=== PATIENT | male | born 1935 | race Caucasian/White ===

== ENCOUNTER 2021-04-13 14:11 | Emergency (ER) | payer OTHER, SELFPAY ==
--- NOTE | 2021-04-13 14:42 | ED.FALL ---
HPI - Fall General Chief Complaint: Extremity Injury, Upper Stated Complaint: infection in L arm Time Seen by Provider: 04/13/21 14:42 Source: patient Mode of arrival: ambulatory Limitations: no limitations History of Present Illness HPI Narrative: 85-year-old man comes in today complaining of a wound on his posterior left upper arm that occurred the morning after Thanksgiving. Patient states that he was in his home, looking up and when he looked down he felt dizzy and passed out. He also had an abrasion on his right elbow but that has since healed. He came in today because his is concerned the wound is infected. He has had no drainage, bleeding, spreading redness, fever or increased pain. He states he is not concerned about his syncopal episode. Onset (ago): day(s) (6) Fall from: standing Fall witnessed: no Place fall occurred: home Length of LOC: second(s) Prolonged down time: no Symptoms prior to fall: lightheadedness and dizziness Location of injury - extremities: Right: arm Severity: mild Associated symptoms (after fall): denies Related Data Home Medications Medication Instructions Recorded Confirmed metoprolol succinate 25 mg PO HS 04/13/21 04/13/21 Allergies Allergy/AdvReac Type Severity Reaction Status Date / Time No Known Allergies Allergy Verified 04/13/21 14:54 Review of Systems Review of Systems: All systems reviewed & are unremarkable except as noted in HPI and below Constitutional: Constitutional: Denies chills and Denies fever(s) ENT: Denies nasal congestion and Denies sore throat Cardiovascular: Cardiovascular: Denies chest pain and Denies radiating jaw, neck or arm pain Respiratory: Respiratory: Denies cough and Denies dyspnea Gastrointestinal: Gastrointestinal: Denies abdominal pain, Denies nausea and Denies vomiting Neurologic: Reports as per HPI, Denies confusion, Denies vertigo, Denies dizziness, Reports syncope, Denies numbness and Denies weakness Allergic/Immunologic: Allergic/Immunologic: Denies lip swelling and Denies throat swelling PMFSH Past Medical History Medical History (Updated 04/13/21 @ 15:23 by Kendrick Pena MD) Bladder cancer Colon cancer Hypertension Surgical History Surgical History (Updated 04/13/21 @ 14:43 by Kendrick Pena MD) History of knee replacement Social History Social History (Updated 04/13/21 @ 15:20 by Kendrick Pena MD) Smoking status: Never smoker Substance use: never Living arrangements: with family Exam Const: General: healthy appearing, no acute distress and alert Orientation/consciousness: patient oriented x3 Limitations: no limitations Resp: Effort & Inspection: normal respiratory effort and no retractions Auscultation: clear to auscultation bilaterally, no rales, no rhonchi and no wheezes Cardio: Rate: regular rate Rhythm: regular rhythm Heart sounds: no murmurs Skin: General skin exam: normal color, no jaundice and no pallor Rashes: no rashes Other: Approximately 8 x 10 cm area of healing wound on the back of the left arm with pink granulation and some dry scale at the edges of the flap. There is some bruising above and below the wound. No warmth, tenderness, erythema or drainage. Neuro: General: patient oriented x3, moves all extremities, no focal motor deficits and CN's II-XI intact bilaterally Speech: normal speech Gait exam (Neuro): Normal gait present Discharge Plan Discharge Clinical Impression: Arm wound Qualifiers: Encounter type: initial encounter Laterality: left Qualified Code(s): S41.102A - Unspecified open wound of left upper arm, initial encounter Patient Disposition: Home, Self-Care Condition: Stable Instructions: Antibiotic Form Additional Instructions: Keep the wound clean and dry. If you develop redness, drainage, increasing pain or new concerning symptoms, be seen immediately. Prescriptions: New Triple Antibiotic 3.5mg-400 unit- 5,000 unit/gram ointm
[2021-04-13 14:46] VITALS: BP 148/69; PULSE 72; RESP 20; TEMP 36.5; O2SAT 96
[2021-04-13 15:58] VITALS: PULSE 80; RESP 20; O2SAT 98
--- NOTE | 2021-04-14 14:16 | PCCCNOTE ---
[facility] notification requred no [facility]N in the system, unable to find on card. Called to patient, patient was agreeable to find the last 4 digits ([id number]) Unable to complete online form w/o full number. Called to [facility] notification [facility] tree Kathleen who accepted and filed report provided # of [id number]. Added to authorizations per workflow.
== END 2021-04-13 16:00 | disposition home or self-care (01) ==
PROVIDERS: Emergency Provider Emergency Medicine
DX: S41.102A Unspecified open wound of left upper arm, initial encounter (principal); W19.XXXA Unspecified fall, initial encounter; I10 Essential (primary) hypertension; Z85.038 Personal history of other malignant neoplasm of large intestine; Z85.51 Personal history of malignant neoplasm of bladder
CPT/HCPCS: 99283

== ENCOUNTER 2022-09-02 13:40 | Emergency (ER) | payer MEDICARE, OTHER, SELFPAY ==
--- NOTE | ~2022-09-02 | XR_ITS ---
EXAMINATION: XR chest 2V DATE: 09/02/2022 14:16 INDICATION: Cough TECHNIQUE: Frontal and lateral views of the chest are obtained COMPARISON: None available FINDINGS: The lungs are free of acute opacities. No pleural effusion or pneumothorax. The cardiomedia stinal silhouette is normal. Calcified pulmonary nodules and calcified right hilar lymph nodes are co nsistent with old granulomatous disease. The visualized bones and soft tissues are unremarkable. IMPRESSION: 1. No acute cardiopulmonary abnormality. Reviewed, dictated and finalized at location A.
--- NOTE | 2022-09-02 13:41 | ED.URI ---
HPI - URI/Sore Throat General Chief Complaint: Upper Respiratory Infection Stated Complaint: COUGH Time Seen by Provider: 09/02/22 13:41 Source: patient Mode of arrival: ambulatory Limitations: no limitations History of Present Illness HPI Narrative: Mr Castillo is an 87-year-old male patient presenting to the clinic today with complaints of productive cough x3 weeks. States that his sputum is dark. He reports he was unable to lay flat last night due to coughing and had to sleep in a recliner. He has mild shortness of breath at times. No fever or chills. Nonsmoker. MD elicited complaint: cough and other Related Data Allergies Allergy/AdvReac Type Severity Reaction Status Date / Time No Known Allergies Allergy Verified 09/02/22 14:01 Review of Systems Review of Systems: Pertinent positives per HPI. Patient denies any fever, chills, rash, headache, visual changes, dizziness, chest pain, palpitations, nausea, vomiting, diarrhea, constipation, abdominal pain, or any urinary issues. PMFSH Past Medical History Medical History Bladder cancer Colon cancer Hypertension Surgical History Surgical History History of knee replacement Social History Social History Smoking status: Never smoker Substance use: never Living arrangements: with family Comments At the time of my signature, I reviewed and agree with the nursing past medical, surgical, social, and family history. There is no relevant family history pertinent to the patient complaint. Exam Narrative: General: Well-developed, well nourished, in no apparent distress Head: Normocephalic, atraumatic Eyes: Pupils equally round and reactive to light bilaterally, EOM intact, sclera and conjunctive clear, no discharge, lids normal Ears: TMs intact and clear, ear canals clear, no drainage, grossly hearing normal. Nose: Nares patent, no discharge, no inflammation, no sinus tenderness. No JVD Mouth: Oral pharynx without lesions or masses, good dentition, MMM. Neck: Supple, trachea midline, no enlargement of anterior or posterior cervical nodes, no thyroid masses or goiter palpable. Cardio: Regular rate and rhythm, s1 and s2 normal, no murmur appreciated. Resp: Lung sounds coarse in the bases, no rhonchi, rales, wheezing or rubs Musculoskeletal: No deformity, non-tender to palpation, grossly normal range of motion, muscle strength strong and equal, peripheral pulse strong, 1+ pitting edema, no cyanosis, normal gait and station Course Course Emergency Course: Portions of this record may have been created with voice recognition software. Level of Care: Express Care Visit Vital Signs Vital signs: Vital Signs Temperature 36.6 C 09/02/22 14:06 Pulse Rate 69 09/02/22 14:06 Respiratory Rate 16 09/02/22 14:06 Blood Pressure 137/69 09/02/22 14:06 Pulse Oximetry 98 09/02/22 14:06 Temperature 36.6 C 09/02/22 14:06 Pulse Rate 69 09/02/22 14:06 Respiratory Rate 16 09/02/22 14:06 Blood Pressure 137/69 09/02/22 14:06 Pulse Oximetry 98 09/02/22 14:06 Vital signs reviewed MDM - URI/Sore Throat MDM Narrative Medical decision making narrative: At the time of visit patient is resting comfortably on exam table. SpO2 is 98% patient is not in any respiratory distress. Chest x-ray was performed was negative for any sign of pneumonia. I suspect patient has bronchitis. Will send in prescription for azithromycin, albuterol, and prednisone. Supportive measures were discussed with the patient he voiced understanding discharge instructions and agrees to treatment plan. Differential Diagnosis Differential diagnosis: Likely upper respiratory infection, otitis media, sinusitis, viral infection, bronchitis, influenza, pharyngitis and other (COVID) Imaging Data
[2022-09-02 14:06] VITALS: BP 137/69; PULSE 69; RESP 16; TEMP 36.6; O2SAT 98
== END 2022-09-02 14:49 | disposition home or self-care (01) ==
PROVIDERS: Emergency Provider Nurse Practitioner Family
DX: J40 Bronchitis, not specified as acute or chronic (principal); I10 Essential (primary) hypertension; Z85.038 Personal history of other malignant neoplasm of large intestine; Z85.51 Personal history of malignant neoplasm of bladder
CPT/HCPCS: 71046; 99213; G0463

== ENCOUNTER 2023-11-12 18:20 | Emergency (ER) | payer MEDICARE, OTHER, SELFPAY ==
--- NOTE | ~2023-11-12 | XR_ITS ---
EXAMINATION: XR chest 2V Exam Date/Time: 11/12/2023 18:39 CDT HISTORY: chest pain and sob Comparison: 09/02/2022. RESULT: Lines, tubes, and devices: None. Lungs and pleura: No acute opacities. Chronic peripheral reticular opacities likely secondary to chr onic interstitial disease. Multiple calcified granulomas. Cardiomediastinal silhouette: Stable. Calcified lymph nodes. Other: No acute osseous or upper abdominal finding. IMPRESSION: No acute cardiopulmonary process. Reviewed, dictated and finalized at location K.
--- NOTE | 2023-11-12 18:23 | ECG_ITS ---
Test Date: 2023-11-12 18:27:04 Measurements Intervals [place] Rate: 69 P: 15 [place]: 183 QRS: -83 QRSD: 146 T: 51 QT: 440 QTc: 474 Interpretive Statements SINUS RHYTHM WITH SINUS ARRHYTHMIA RIGHT BUNDLE BRANCH BLOCK LEFT ANTERIOR FASCICULAR BLOCK ABNORMAL ECG No previous ECG available for comparison Electronically Signed On 11-12-2023 20:29:15 CDT by Austin Colon D.O.
[2023-11-12 18:30] VITALS: BP 144/66; PULSE 60; RESP 14; TEMP 36.5; O2SAT 97
[2023-11-12 18:46] LABS: Basophils Absolute Auto 0.1 K/mm3 (0.0-0.1); Basophils Percent Auto 0.6 % (0.2-1.2); Eosinophils Absolute Auto 0.3 K/mm3 (0-0.3); Eosinophils Percent Auto 2.8 % (0-4.4); Hematocrit 37.3 % (42.0-52.0); Hemoglobin 12.6 g/dL (14.0-18.0); Immature Granulocyte Absolute 0.04 K/mm3 (0.00-0.031); Immature Granulocyte Percent A 0.4 % (0-0.5); Lymphocytes Absolute Auto 2.63 K/mm3 (0.9-3.2); Lymphocytes Percent Auto 23.4 % (18.3-44.2); Mean Corpuscular HGB Conc 33.8 g/dl (32-36); Mean Corpuscular Volume 91.6 fl (80-100); Mean Platelet Volume 8.7 fl (7.4-10.4); Monocytes Absolute Auto 0.9 K/mm3 (0.1-0.6); Monocytes Percent Auto 8.1 % (2.6-8.5); Neutrophils Absolute Auto 7.3 K/mm3 (1.3-6.7); Neutrophils Percent Auto 64.7 % (45.5-73.1); Platelet Count Result 396 k/mm3 (150-375); Red Blood Count 4.07 M/mm3 (4.6-6.20); Red Cell Distribution Width 13.3 % (11.5-14.5); White Blood Count 11.2 K/mm3 (4.5-10.0)
[2023-11-12 18:55] LABS: Alanine Aminotransferase 43 U/L (6-50); Albumin Level 4.1 g/dL (3.5-5.1); Alkaline Phosphatase 95 U/L (38-126); Anion Gap 5 mmol/L (4-12); Aspartate Amino Transferase 34 U/L (17-59); Bilirubin,Total 0.4 mg/dL (0.2-1.3); Blood Urea Nitrogen 12 mg/dL (9-20); Calcium 8.7 mg/dL (8.4-10.2); Carbon Dioxide 29 mmol/L (22-30); Chloride 99 mmol/L (98-107); Estimated CRCL calculation 72 ml/min; Estimated Glomerular Filt Rate > 60; Glucose 170 mg/dL (65-110); Lipase 154 U/L (23-300); Potassium 3.8 mmol/L (3.4-5.0); Sodium 133 mmol/L (137-145)
[2023-11-12 18:59] LABS: Partial Thromboplastin Time 33.1 Seconds (22.3-36.8)
[2023-11-12 19:07] LABS: Troponin I < 0.012 ng/mL (0.000-0.034)
[2023-11-12 20:49] VITALS: PULSE 67
--- NOTE | 2023-11-12 20:53 | ED.CHESTPAIN ---
HPI - Chest Pain General Chief Complaint: Chest Pain Stated Complaint: fluid on the lungs Time Seen by Provider: 11/12/23 20:23 History of Present Illness HPI narrative: Patient is an 88-year-old male with history of vertigo, macular degeneration, hypertension here with multiple symptoms including intermittent chest pain, shortness of breath, dizziness, worsening vision. Patient notes that his vision has been progressively worsening over the last 4 years, seems to be picking up more rapidly over the last several weeks, [facility] and gets injections every 7 weeks. He additionally is complaining of some dizziness. These episodes seem to happen when he goes from a lying to standing position. Not currently present now. He has seen a doctor through the [facility] for this as well, this has been present for the last 6 months, he intermittently takes meclizine which sometimes helps with the symptoms and sometimes does not. Finally he is complaining of some chest pain, Shortness of breath and fatigue. This has been present for the last several weeks, he did go to an urgent care approximately week and half ago where they told him they heard with fluid on his lungs and heart and recommended he come into the ER for further evaluation. He did not come to the ER at that time, called his primary care doctor through the [facility], he is scheduled for a stress test on 11/23/2023. Given this concern for fluid on his lungs and heart his doctor at that time recommended he come into the emergency department for further evaluation and diagnostic testing. Patient denies any chest pain or shortness of breath at this time and states that it is not something that bothers him. He notes he has no interest in being hospitalized. Related Data Allergies Allergy/AdvReac Type Severity Reaction Status Date / Time No Known Allergies Allergy Verified 09/02/22 14:01 Review of Systems Review of Systems: All systems reviewed & are unremarkable except as noted in HPI and below PMFSH Past Medical History Medical History Bladder cancer Colon cancer Hypertension Surgical History Surgical History History of knee replacement Social History Social History Smoking status: Never smoker Substance use: never Living arrangements: with family Exam Narrative: GENERAL: Well-appearing, well-nourished, and in no acute distress. HEAD: Normocephalic, atraumatic. EYES: PERRLA and EOMI. ENT: Nares clear. Mucous membranes moist. NECK: Supple. CHEST: Clear to auscultation. No respiratory distress. HEART: Regular rate and rhythm. Normal peripheral pulses. ABDOMEN: Soft, nontender, nondistended. EXTREMITIES: Normal range of motion. Trace bilateral lower extremity edema. No calf tenderness. SKIN: Warm, dry, no rash. NEURO: No focal deficits. Alert and oriented x3. PSYCH: Normal mood and affect. Course Course Emergency Course: Chart review performed, patient is an 88-year-old male here from home with chest pain that radiates down his left arm. He was reportedly seen at urgent care for chest pain and they reportedly heard fluid on patient's lungs and [facility] PCP instructed him to come in here. Triage vitals grossly normal. Patient seen evaluated, nontoxic appearing. He has had 2 normal troponins here in the ER and a normal chest x-ray. Reviewed all results with patient and family. He currently denies any symptoms. Many of the things he is complaining about today are actually longstanding problems for which he follows with [facility]. Given his reassuring workup here in the department and no active symptoms at all I did offer possibility for cardiac observation versus discharge home. Patient states he has no i
[2023-11-12 20:58] VITALS: O2SAT 97
[2023-11-12 21:35] LABS: NT Pro B Type Natriuretic Pept 252 pg/mL (19.9-100)
[2023-11-12 22:05] LABS: Troponin I < 0.012 ng/mL (0.000-0.034)
== END 2023-11-12 22:31 | disposition home or self-care (01) ==
PROVIDERS: Emergency Medicine; Emergency Provider Student in an Organized Health Care Education/Training Program
DX: R07.89 Other chest pain (principal); R42 Dizziness and giddiness; I10 Essential (primary) hypertension; Z85.038 Personal history of other malignant neoplasm of large intestine; Z85.51 Personal history of malignant neoplasm of bladder
CPT/HCPCS: 36415; 71046; 80053; 83690; 83880; 84484; 85025; 85610; 85730; 93005; 99284

== ENCOUNTER 2024-05-10 10:33 | Emergency (ER) | payer MEDICARE, OTHER, SELFPAY ==
--- NOTE | ~2024-05-10 | XR_ITS ---
EXAMINATION: XR chest 2V DATE: 05/10/2024 11:06 INDICATION: Chest pain radiating down the left arm TECHNIQUE: PA and lateral views of the chest were obtained. COMPARISON: Chest radiograph dated 11/12/2023 FINDINGS: Stable appearance of coarse reticular opacities with peripheral and lower lung predominance consisten t with chronic interstitial lung disease. Also unchanged are a few small calcified nodules in the rig ht midlung zone consistent with old granulomatous disease. No pleural effusion or pneumothorax. The c ardiomediastinal silhouette is normal. IMPRESSION: 1. Stable appearance of peripheral and lower lung predominant chronic interstitial lung disease. Reviewed, dictated and finalized at location A. ICAL TRANSCRIBER IMPRESSION: 1. Stable appearance of peripheral and lower lung predominant chronic interstit ial lung disease.
--- NOTE | 2024-05-10 10:38 | ECG_ITS ---
Test Date: 2024-05-10 10:43:02 Measurements Intervals [place] Rate: 69 P: 99 ME: 179 QRS: -83 QRSD: 142 T: 36 QT: 431 QTc: 463 Interpretive Statements SINUS RHYTHM WITH OCCASIONAL SUPRAVENTRICULAR PREMATURE COMPLEXES RIGHT BUNDLE BRANCH BLOCK [120+ ms QRS DURATION, UPRIGHT V1, 40+ ms S IN I/aVL/V4/V5/V6] LEFT ANTERIOR FASCICULAR BLOCK [QRS AXIS <= -45, QR IN I, RS IN II] ABNORMAL ECG Electronically Signed On 05-10-2024 11:24:40 SATELLITE SPECIALIST by Jamie Guzman M.D.
[2024-05-10 10:42] VITALS: BP 152/86; PULSE 80; RESP 16; TEMP 36.8; O2SAT 99
[2024-05-10 10:58] LABS: Basophils Absolute Auto 0.1 K/mm3 (0.0-0.1); Basophils Percent Auto 0.6 % (0.2-1.2); Eosinophils Absolute Auto 0.3 K/mm3 (0-0.3); Eosinophils Percent Auto 3.4 % (0-4.4); Hematocrit 35.4 % (42.0-52.0); Hemoglobin 11.9 g/dL (14.0-18.0); Immature Granulocyte Absolute 0.04 K/mm3 (0.00-0.031); Immature Granulocyte Percent A 0.4 % (0-0.5); Lymphocytes Absolute Auto 1.75 K/mm3 (0.9-3.2); Lymphocytes Percent Auto 17.6 % (18.3-44.2); Mean Corpuscular HGB Conc 33.6 g/dl (32-36); Mean Corpuscular Hemoglobin 30.4 pg (26-34); Mean Corpuscular Volume 90.5 fl (80-100); Mean Platelet Volume 8.9 fl (7.4-10.4); Monocytes Absolute Auto 1.1 K/mm3 (0.1-0.6); Monocytes Percent Auto 11.4 % (2.6-8.5); Neutrophils Absolute Auto 6.6 K/mm3 (1.3-6.7); Neutrophils Percent Auto 66.6 % (45.5-73.1); Platelet Count Result 411 k/mm3 (150-375); Red Blood Count 3.91 M/mm3 (4.6-6.20); White Blood Count 9.9 K/mm3 (4.5-10.0)
[2024-05-10 11:09] LABS: Alanine Aminotransferase 17 U/L (6-50); Albumin Level 3.7 g/dL (3.5-5.1); Alkaline Phosphatase 91 U/L (38-126); Anion Gap 4 mmol/L (4-12); Aspartate Amino Transferase 22 U/L (17-59); Bilirubin,Total 0.5 mg/dL (0.2-1.3); Blood Urea Nitrogen 10 mg/dL (9-20); Calcium 8.7 mg/dL (8.4-10.2); Carbon Dioxide 26 mmol/L (22-30); Chloride 101 mmol/L (98-107); Estimated CRCL calculation 67 ml/min; Estimated Glomerular Filt Rate > 60; Glucose 248 mg/dL (65-110); Lipase 179 U/L (23-300); Potassium 4.4 mmol/L (3.4-5.0); Sodium 131 mmol/L (137-145)
[2024-05-10 11:10] LABS: INR 1.1; Prothrombin Time 14.5 Seconds (11.1-14.7)
[2024-05-10 11:11] LABS: Partial Thromboplastin Time 31.2 Seconds (22.3-36.8)
[2024-05-10 11:20] LABS: Troponin I < 0.012 ng/mL (0.000-0.034)
[2024-05-10 12:44] VITALS: BP 140/78; PULSE 66; RESP 13; TEMP 36.7; O2SAT 100
[2024-05-10 13:14] VITALS: PULSE 53; O2SAT 99
--- NOTE | 2024-05-10 13:23 | ECG_ITS ---
Test Date: 2024-05-10 13:28:43 Measurements Intervals [place] Rate: 50 P: 77 NM: 191 QRS: -51 QRSD: 146 T: 40 QT: 475 QTc: 436 Interpretive Statements SINUS BRADYCARDIA RIGHT BUNDLE BRANCH BLOCK [120+ ms QRS DURATION, UPRIGHT V1, 40+ ms S IN I/aVL/V4/V5/V6] LEFT ANTERIOR FASCICULAR BLOCK [QRS AXIS <= -45, QR IN I, RS IN II] ABNORMAL ECG Electronically Signed On 05-11-2024 08:45:15 PUBLIC RELATIONS MANAGER by Jamie Guzman M.D.
[2024-05-10 13:58] LABS: Troponin I < 0.012 ng/mL (0.000-0.034)
[2024-05-10 14:12] LABS: Influenza A QL RT-PCR Negative (Negative); Influenza B QL RT-PCR Negative (Negative); RSV RNA, RT-PCR Negative (Negative); SARS-CoV-2 RNA PCR Negative (Negative)
--- NOTE | 2024-05-10 14:15 | ED.GENADULT ---
HPI - General Adult General Chief complaint: Chest Pain Stated complaint: chest pain Time Seen by Provider: 05/10/24 13:20 History of Present Illness HPI narrative: 88-year-old male presenting to the emergency department for evaluation for left-sided chest pain with associated cough and congestion. Patient was diagnosed with bronchitis approximately 1 week ago, he has had symptoms for approximately 2 weeks. Patient was started on Tessalon Perles, albuterol inhaler and prednisone. Family states that the patient's cough has continue to persist. Two days ago patient began complaining having left-sided chest pain that radiates down the left arm. Patient has no prior cardiac history. Patient denies any radiation of the pain into his neck or back. Patient is resting calmly at time of evaluation. Related Data Allergies Allergy/AdvReac Type Severity Reaction Status Date / Time No Known Allergies Allergy Verified 09/02/22 14:01 Review of Systems Review of Systems: All systems reviewed & are unremarkable except as noted in HPI and below PMFSH Past Medical History Medical History Bladder cancer Colon cancer Hypertension Surgical History Surgical History History of knee replacement Social History Social History Smoking status: Never smoker Substance use: never Living arrangements: with family Exam Narrative: APPEARANCE: Well appearing, no pain, no distress, well-nourished. HEAD: normocephalic, atraumatic. EYES: PERRLA/EOMI, conjunctivae clear. NOSE: Normal no drainage EARS:TMS clear with good light reflex. THROAT: Pharynx clear, no exudate. NECK: Supple. No adenopathy, no masses. RESPIRATORY: Airway patent, respirations nonlabored. Clear to auscultation bilaterally, no rales, rhonchi, wheezing. CARDIOVASCULAR: Regular rate and rhythm without murmurs rubs or gallops. ABDOMINAL: Soft, nontender, nondistended, normal bowel sounds MUSCULOSKELETAL: Moves all extremities. Strength/ROM intact, No edema, No calf tenderness. NEURO: Alert. Cranial nerves II through XII intact. Good gait. Good coordination SKIN: Warm, dry. Normal Color Course Course Emergency Course: APPEARANCE: Well appearing, no pain, no distress, well-nourished. HEAD: normocephalic, atraumatic. EYES: PERRLA/EOMI, conjunctivae clear. NOSE: Normal no drainage EARS:TMS clear with good light reflex. THROAT: Pharynx clear, no exudate. NECK: Supple. No adenopathy, no masses. RESPIRATORY: Airway patent, respirations nonlabored. Clear to auscultation bilaterally, no rales, rhonchi, wheezing. CARDIOVASCULAR: Regular rate and rhythm without murmurs rubs or gallops. ABDOMINAL: Soft, nontender, nondistended, normal bowel sounds MUSCULOSKELETAL: Moves all extremities. Strength/ROM intact, No edema, No calf tenderness. NEURO: Alert. Cranial nerves II through XII intact. Grossly intact SKIN: Warm, dry. Normal Color Vital Signs Vital signs: Vital Signs Temperature 98.2 F 05/10/24 10:42 Pulse Rate 80 05/10/24 10:42 Respiratory Rate 16 05/10/24 10:42 Blood Pressure 152/86 H 05/10/24 10:42 Pulse Oximetry 99 05/10/24 10:42 Temperature 98.0 F 05/10/24 12:44 Pulse Rate 58 L 05/10/24 14:37 Respiratory Rate 17 05/10/24 14:37 Blood Pressure 170/88 H 05/10/24 14:37 Pulse Oximetry 96 05/10/24 14:37 Oxygen Delivery Room Air 05/10/24 13:14 Medical Decision Making [facility] Narrative Medical decision making narrative: 88-year-old male present to the emergency department for evaluation for cough congestion and left-sided chest pain. Patient is afebrile with no leukocytosis and hemoglobin 11.9. Patient has no acute abnormalities on his CMP and patient had negative serial troponins. Patient was negative for influenza RSV and for COVID. Chest x-ray does show chronic interstitial lung disease. Serial EKG showed normal sinus rhythm with no evidence of acute STEMI. Patient's symptoms are more consistent with pleurisy with his underlying upper respiratory infection. Patient will be started on antibiotics for possible underlying pneumonia. Patient family are comfortable plan treatment. All questions concerns were addressed. Patient was also encouraged close follow-up with his primary care physician for additional outpatient cardiac testing. Differential Diagnosis Differential Diagnosis: ACS, COVID, RSV, influenza, pneumonia, pneumonitis, bronchitis Vital Signs Vital Signs: Vital Signs Temperature 98.2 F 05/10/24 10:42 Pulse Rate 80 05/10/24 10:42 Respiratory Rate 16 05/10/24 10:42 Blood Pressure 152/86 H 05/10/24 10:42 Pulse Oximetry 99 05/10/24 10:42 Temperature 98.0 F 05/10/24 12:44 Pulse Rate 58 L 05/10/24 14:37 Respiratory Rate 17 05/10/24 14:37 Blood Pressure 170/88 H 05/10/24 14:37 Pulse Oximetry 96 05/10/24 14:37 Oxygen Delivery Room Air 05/10/24 13:14 Lab Data Lab results reviewed: Yes I reviewed the patient's lab results. 05/10/24 10:49 05/10/24 10:49 Labs: Lab Results 05/10/24 05/10/24 Range/Units 10:49 13:29 WBC 9.9 (4.5-10.0) K/mm3 RBC 3.91 L (4.6-6.20) M/mm3 Hgb 11.9 L (14.0-18.0) g/dL Hct 35.4 L (42.0-52.0) % MCV 90.5 (80-100) fl MCH 30.4 (26-34) pg MCHC 33.6 (32-36) g/dl RDW 14.0 (11.5-14.5) % Plt Count 411 H (150-375) k/mm3 MPV 8.9 (7.4-10.4) fl Immature Gran % (Auto) 0.4 (0-0.5) % Neut % (Auto) 66.6 (45.5-73.1) % Lymph % (Auto) 17.6 L (18.3-44.2) % Bullock % (Auto) 11.4 H (2.6-8.5) % Eos % (Auto) 3.4 (0-4.4) % Baso % (Auto) 0.6 (0.2-1.2) % Lymph # (Auto) 1.75 (0.9-3.2) K/mm3 Bullock # (Auto) 1.1 H (0.1-0.6) K/mm3 Eos # (Auto) 0.3 (0-0.3) K/mm3 Baso # (Auto) 0.1 (0.0-0.1) K/mm3 Abs Immat Gran (auto) 0.04 H (0.00-0.031) K/mm3 Absolute Neuts (auto) 6.6 (1.3-6.7) K/mm3 Absolute Nucleated RBC 0.000 (0.0-0.012) K/mm3 Nucleated RBC % 0.0 (0.0-0.2) % PT 14.5 (11.1-14.7) Seconds INR 1.1 APTT 31.2 (22.3-36.8) Seconds Sodium 131 L (137-145) mmol/L Potassium 4.4 (3.4-5.0) mmol/L Chloride 101 (98-107) mmol/L Carbon Dioxide 26 (22-30) mmol/L Anion Gap 4 (4-12) mmol/L BUN 10 (9-20) mg/dL Creatinine 0.70 (0.7-1.3) mg/dL Estim Creat Clear Calc 67 ml/min Estimated GFR > 60 (59 - ) Glucose 248 H (65-110) mg/dL Calcium 8.7 (8.4-10.2) mg/dL Total Bilirubin 0.5 (0.2-1.3) mg/dL AST 22 (17-59) U/L ALT 17 (6-50) U/L Alkaline Phosphatase 91 (38-126) U/L Troponin I < 0.012 < 0.012 (0.000-0.034) ng/mL Total Protein 7.0 (6.3-8.2) g/dL Albumin 3.7 (3.5-5.1) g/dL Lipase 179 (23-300) U/L Influenza A (RT-PCR) Negative (Negative) Influenza B (RT-PCR) Negative (Negative) RSV (RT-PCR) Negative (Negative) SARS-CoV-2 RNA (RT-PCR) Negative (Negative) Imaging Data Radiologist's impression: Impressions Chest X-Ray 05/10/24 11:09 IMPRESSION: 1. Stable appearance of peripheral and lower lung predominant chronic interstitial lung disease. Discharge Plan Discharge Clinical Impression: Atypical chest pain, Pleurisy Patient Disposition: Home, Self-Care Condition: Stable Instructions: Antibiotic Form Additional Instructions: Antibiotic as directed until completed. Tylenol or ibuprofen for pain control. Have close follow-up with your primary care physician for additional outpatient cardiac testing. If you have any worsening symptoms then please call or return to the emergency department. Patient Language: Citizen [place] Prescriptions: New amoxicillin-pot clavulanate 875-125 mg tablet 1 tablet PO Q12H 7 Days Qty: 14 0RF azithromycin 250 mg tablet See Rx Instructions .ROUTE .COMPLEX Qty: 6 0RF Rx Instructions: For 250 mg dose pack: take 500 mg today (day 1), then 250 mg for 4 days (days 2-5) No Action azithromycin 250 mg tablet See Rx Instructions .ROUTE .COMPLEX Qty: 6 0RF Rx Instructions: For 250 mg dose pack: take 500 mg today (day 1), then 250 mg for 4 days (days 2-5) prednisone 20 mg tablet 40 mg PO DAILY 5 Days Qty: 10 0RF albuterol sulfate 90 mcg/actuation HFA aerosol inhaler 2 puff inhalation Q4-6H PRN (Reason: shortness of breath or wheezing) 30 Days Qty: 8.5 0RF Follow-up/Referrals: [facility] [Primary Care Provider] - Quality HEART score for chest pain patients History: slightly suspicious ECG: normal Age: > or = to 65 years Risk factors: 1 or 2 risk factors Troponin: < or = to 1x normal limit Heart score: 3
[2024-05-10 14:37] VITALS: BP 170/88; PULSE 58; RESP 17; O2SAT 96
--- OUTSIDE RECORDS SUMMARY | 2024-05-17 21:44 | XMS_ITS | Continuity of Care Document ---
Author Name [facility] Organization [facility] Care Team Providers Care Janitor Helper Name Role Phone [facility] Unavailable Unavailable Problems Combined list of problems from Department of Defense and [facility] Affairs facilities. It does not include entries that were removed or entered in error. Problem Status Onset Date Problem Type Date of Resolution Comments Source Actinic Keratosis Active Condition [facility] Age related macular degeneration (SNOMED CT 513914202) Active Condition [facility] Allergic rhinitis * (ICD-9-CM 477.9) Active Condition [facility] Benign essential hypertension (SNOMED CT 8631748) Active Condition [facility] Benign paroxysmal positional vertigo Active Condition [facility] Carcinoma, Basal Cell Active Condition [facility] Chest pain Active Condition [facility] Colonic Polyps Active Condition Feb 122005 Entered By: JENNY TALAVERA Comment: s/p colonscopy in . 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) Active Condition Jan 27 9 Entered By: DAO BUSTAMANTE Comment: cervical spine by CT [facility] Dermatitis (SNOMED CT 854073887) Active Condition [facility] Diabetes mellitus Active Condition [facility] Diabetes Mellitus without mention of Complication, type II or unspecified type, Active Condition [facility] Dry skin (SNOMED CT 94323735) Active Condition [facility] 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 [facility] History/Skin/CA Active Condition [facility] Hyperlipidaemia (SNOMED CT 05384255) Active Condition [facility] Hyperlipidemia Active Condition [facility] Insomnia Active Condition [facility] Knee: arthralgia * (ICD-9-CM 719.46) Active Condition [facility] Osteoarthritis of knee Active Condition [facility] Osteoarthritis of knee (SNOMED CT 125153578) Active Condition [facility] Other Malaise and Fatigue (ICD-9-CM 780.79) Active Condition [facility] Pain in joint involving hand (ICD-9-CM 719.44) Active Condition [facility] Pain in joint involving shoulder region (ICD-9-CM 719.41) Active Condition [facility] Palpitations (ICD-9-CM 785.1) Active Condition [facility] Personal History of Colonic Polyps (ICD-9-CM V12.72) Active Condition [facility] 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 [facility] Osteoarthritis * (ICD-9-CM 715.90) Inactive Condition 03/22/2007 [facility] Diagnosis: ICD-10-CM H35.3134 Nexdtve age-rel mclr degn, bi, adv atrpc with subfoveal invl Active Diagnosis [facility] Diagnosis: ICD-10-CM H35.3210 Exudative age-rel mclr degn, right eye, stage unspecified Active Diagnosis [facility] Diagnosis: ICD-10-CM H35.322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, left eye, with actv chrdl neovas Active Diagnosis [facility] Diagnosis: ICD-10-CM L57.0 Actinic keratosis Active Diagnosis [facility] Diagnosis: ICD-10-CM M17.12 Unilateral primary osteoarthritis, left knee Active Diagnosis [facility] Diagnosis: ICD-10-CM H35.321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, right eye, with inact chrdl neovas Active Diagnosis [facility] Diagnosis: ICD-10-CM Z71.0 Prsn encntr hlth serv to consult on behalf of another person Active Diagnosis [facility] Diagnosis: ICD-10-CM H81.13 Benign paroxysmal vertigo, bilateral Active Diagnosis [facility] Diagnosis: ICD-10-CM I25.10 Athscl heart disease of lime coronary artery w/o ang pctrs Active Diagnosis [facility] Diagnosis: ICD-10-CM R07.9 Chest pain, unspecified Active Diagnosis [facility] Diagnosis: ICD-10-CM Z71.81 Spiritual or orthodox counseling Active Diagnosis [facility] Diagnosis: ICD-10-CM 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 Active Diagnosis [facility] Diagnosis: ICD-10-CM R53.82 Chronic fatigue, unspecified Active Diagnosis [facility] Diagnosis: ICD-10-CM R27.0 Ataxia, unspecified Active Diagnosis [facility] Diagnosis: ICD-10-CM M62.81 Muscle weakness (generalized) Active Diagnosis [facility] Admit Reason: FAILURE TO THRIVE Active Diagnosis [facility] Diagnosis: ICD-10-CM R53.1 Weakness Active Diagnosis [facility] Diagnosis: ICD-10-CM R07.89 Other chest pain Active Diagnosis [facility] Diagnosis: ICD-10-CM L60.2 Onychogryphosis Active Diagnosis [facility] Diagnosis: ICD-10-CM H81.399 Other peripheral vertigo, unspecified ear Active Diagnosis [facility] Diagnosis: ICD-10-CM H35.3232 Exudative age-rel mclr degn, bi, with inact chrdl neovas Active Diagnosis [facility] Diagnosis: ICD-10-CM R05.3 Chronic cough Active Diagnosis [facility] Diagnosis: ICD-10-CM H35.3231 Exudative age-rel mclr degn, bi, with actv chrdl neovas Active Diagnosis [facility] Diagnosis: ICD-10-CM H35.322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, left eye, with inact chrdl neovas Active Diagnosis [facility] Diagnosis: ICD-10-CM E11.9 Type 2 diabetes mellitus without complications Active Diagnosis [facility] Medications Combined list of outpatient medications from Department of Defense and [facility] facilities.Medications provided include 1) outpatient medications from the last 15 months, and 2) patient-reported medications. Medication Details Route Status Patient Instructions Prescription Expires Prescription Number Last Dispense Date Ordering Provider Order Date Order Qty Source ASPIRIN 81MG TAB,EC TAKE ONE TABLET BY MOUTH ONCE A DAY FOR CARDIOVA SCULAR DISEASE TAKE WITH FOOD. ORAL ACTIVE 03/01/2025 [id number] TALA MEAGHAN 2023 120 [facility] CHOLECALCIF KULDEEP 50MCG (2,000UNIT) TAB TAKE ONE TABLET BY MOUTH ONCE A DAY FOR VITAMIN D DEFICIEN CY ORAL DISCONT INUED 2023 [id number] TALA MEAGHAN 2023 100 [facility] CHOLECALCIF KULDEEP 50MCG (2,000UNIT) TAB TAKE ONE TABLET BY MOUTH ONCE A DAY FOR VITAMIN D DEFICIEN CY ORAL DISCONT INUED 10/10/2024 [id number] TALA MEAGHAN 2023 100 [facility] CHOLECALCIF KULDEEP 50MCG (2,000UNIT) TAB TAKE ONE TABLET BY MOUTH ONCE A DAY FOR VITAMIN D DEFICIEN CY ORAL 02/21/2024 [id number] ALDAIRMEAGHAN 2023 100 [facility] DICLOFENAC NA 1% GEL,TOP APPLY 2 GM TO AFFECTED AREA(S) FOUR TIMES A DAY FOR PAIN NOT MORE THAN 16 GRAMS DAILY TO ANY LOWER EXTREMIT Y JOINT. NOT MORE THAN 8 GRAMS DAILY TO ANY UPPER EXTREMIT Y JOINT. MAX 32GM/DAY OVER ALL JOINTS. (MEASURE DOSE WITH RULER ATTACHED INSIDE BOX) APPLY PRESCRIB ED TO RIGHT SHOULDER TOPICA L ACTIVE 10/10/2024 [id number] 4 MEAGHAN QUINTEROS 2023 100 [facility] DICLOFENAC NA 1% GEL,TOP APPLY 2 GM TO AFFECTED AREA(S) FOUR TIMES A DAY FOR PAIN NOT MORE THAN 16 GRAMS DAILY TO ANY LOWER EXTREMIT Y JOINT. NOT MORE THAN 8 GRAMS DAILY TO ANY UPPER EXTREMIT Y JOINT. MAX 32GM/DAY OVER ALL JOINTS. (MEASURE DOSE WITH RULER ATTACHED INSIDE BOX) APPLY PRESCRIB ED TO RIGHT SHOULDER TOPICA L 10/07/2023 [id number] CHANELL LARA L 2022 100 [facility] FLUOROURACI L 5% CREAM,TOP APPLY THIN FILM TO AFFECTED AREA(S) TWICE A DAY AVOID SUN EXPOSURE . FOLLOW DIRECTIO NS CAREFULL Y FOR PROPER HANDLING /DISPOSA L. APPLY TO SCALY SPOT UNDERNEA TH RIGHT EYE, ON FACE TWICE PER PER DAY FOR 14 DAYS AVOID SUN EXPOSURE . FOLLOW DIRECTIO NS CAREFULL Y FOR PROPER HANDLING /DISPOSA L. APPLY TO SCALY SPOT UNDERNEA TH RIGHT EYE, ON FACE TWICE PER PER DAY FOR 14 DAYS TOPICA L ACTIVE 03/04/2025 [id number] 4 JUAN CARLOS SELF 2023 40 [facility] FLUOROURACI L 5% CREAM,TOP APPLY THIN FILM TO AFFECTED AREA(S) TWICE A DAY FOR ACTINIC KERATOSI S AVOID SUN EXPOSURE . FOLLOW DIRECTIO NS CAREFULL Y FOR PROPER HANDLING /DISPOSA L. APPLY TWICE DAILY TO AREAS WITH RED, SCALY SPOTS DIRECTED BY YOUR DOCTOR FOR 14 DAYS. WILL CAUSE IRRITATI ON AND REDNESS, CAN STOP IF UNABLE TO TOLERATE . WASH HANDS AFTER USE. AVOID SUN EXPOSURE . FOLLOW DIRECTIO NS CAREFULL Y FOR PROPER HANDLING /DISPOSA L. APPLY TWICE DAILY TO AREAS WITH RED, SCALY SPOTS DIRECTED BY YOUR DOCTOR FOR 14 DAYS. WILL CAUSE IRRITATI ON AND REDNESS, CAN STOP IF UNABLE TO TOLERATE . WASH HANDS AFTER USE. TOPICA L 04/12/2023 [id number] RONALD LUTHER S 2022 40 [facility] N GUAIFENESIN 200MG TAB TAKE ONE TABLET BY MOUTH EVERY 4 HOURS NEEDED FOR MUCUS THINNING TAKE WITH 8 OUNCE GLASS OF WATER. ORAL 06/17/2023 [id number] 4 TALA MEAGHAN 2023 90 [facility] MECLIZINE HCL 25MG TAB,CHEWABL E CHEW AND SWALLOW ONE-HALF TABLET BY MOUTH THREE TIMES A DAY NEEDED FOR VERTIGO CHEWABLE TABLETS MAY BE CHEWED OR SWALLOWE D WHOLE. MAY CAUSE DROWSINE SS. ORAL ACTIVE 03/01/2025 [id number] 4 TALA MEAGHAN 2023 45 [facility] N MECLIZINE HCL 25MG TAB,CHEWABL E CHEW AND SWALLOW ONE-HALF TABLET BY MOUTH THREE TIMES A DAY NEEDED FOR VERTIGO CHEWABLE TABLETS MAY BE CHEWED OR SWALLOWE D WHOLE. MAY CAUSE DROWSINE SS. ORAL DISCONT INUED 10/12/2024 [id number] ROBERTH BURGOS 2023 45 [facility] N MECLIZINE HCL 25MG TAB,CHEWABL E CHEW AND SWALLOW ONE-HALF TABLET BY MOUTH THREE TIMES A DAY NEEDED FOR VERTIGO CHEWABLE TABLETS MAY BE CHEWED OR SWALLOWE D WHOLE. MAY CAUSE DROWSINE SS. ORAL DISCONT INUED 10/10/2024 [id number] 4 ALDAIRMEAGHAN 2023 45 [facility] MULTIVITAMI N/OPHTH ANTIOXIDANT /LUTEIN CAP/TAB TAKE 1 CAP/TAB BY MOUTH ONCE A DAY ORAL ACTIVE Candy CAUSEY MD 2015 [facility] NAPROXEN 375MG TAB TAKE ONE TABLET BY MOUTH TWICE DAILY NEEDED FOR ARTHRITI S PAIN TAKE WITH FOOD. ORAL ACTIVE 03/01/2025 [id number] 4 MEAGHAN QUINTEROS 2023 180 [facility] N ROSUVASTATI N CA 40MG TAB TAKE ONE-HALF TABLET BY MOUTH EVERY EVENING TO LOWER CHOLESTE ROL ORAL ACTIVE 10/12/2024 [id number] LORETTAROBERTH Zahra Del Valle 2023 45 [facility] ROSUVASTATI N CA 40MG TAB TAKE ONE-HALF TABLET BY MOUTH EVERY EVENING TO LOWER CHOLESTE ROL ORAL DISCONT INUED 11/21/2023 [id number] Lian WALLACE 2022 45 [facility] N SODIUM CHLORIDE 0.65% SOLN,NASAL SPRAY USE 2 SPRAYS INTO NOSTRIL( S) EVERY 4 HOURS NEEDED FOR NASAL CONGESTI ON NASAL DISCONT INUED BY DASHAWN Sweeney 10/10/2024 [id number] MEAGHAN QUINTEROS 2023 135 [facility] Immunizations Combined list of available immunizations from the Department of Defense and Veterans Affairs facilities. Immunization Series Date Given Administered By Site Reaction Lot Number CVX Code Drug Oyster Floater Status Comments Source INFLUENZA, HIGH-DOSE, TRIVALENT, PF 2023 BITA IRVIN RIGHT DELTO ID [id number] 135 complet ed [facility] N ZOSTER RECOMBINANT 2 2023 BITA IRVIN RIGHT DELTO ID [id number] 187 complet ed [facility] COVID-19 (PFIZER), MRNA, LNP-S, PF, FREDA-SUCROSE, 30 MCG/0.3 ML (AGES 12+ YEARS) 1 2023 BITA IRVIN RIGHT DELTO ID [id number] 309 complet ed [facility] ZOSTER RECOMBIN[facility] 1 2023 BITA IRVIN LEFT DELTO ID [id number] 187 complet ed [facility] INFLUENZA, UNSPECIFIED FORMULATION 2021 88 complet ed [facility] COVID-19 (PFIZER), MRNA, LNP-S, PF, 30 MCG/0.3 ML DOSE 2 2020 208 complet ed [facility] INFLUENZA, UNSPECIFIED FORMULATION 2020 88 complet ed [facility] COVID-19 (PFIZER), MRNA, LNP-S, PF, 30 MCG/0.3 ML DOSE 1 2020 208 complet ed [facility] INFLUENZA, INJECTABLE, QUADRIVALENT, PRESERVATIVE FREE 2018 150 complet ed [facility] INFLUENZA, INJECTABLE, QUADRIVALENT, PRESERVATIVE FREE 2017 150 complet ed [facility] N TDAP 2016 115 complet ed [facility] INFLUENZA, INJECTABLE, QUADRIVALENT, PRESERVATIVE FREE 2016 150 complet ed [facility] INFLUENZA, SEASONAL, INJECTABLE, PRESERVATIVE FREE 2014 140 complet ed [facility] PNEUMOCOCCAL CONJUGATE PCV 13 2014 133 complet ed [facility] INFLUENZA, UNSPECIFIED FORMULATION 2013 88 complet ed [facility] INFLUENZA, UNSPECIFIED FORMULATION 2012 88 complet ed [facility] INFLUENZA, UNSPECIFIED FORMULATION 2011 88 complet ed [facility] INFLUENZA, UNSPECIFIED FORMULATION 2010 88 complet ed [facility] INFLUENZA, UNSPECIFIED FORMULATION 2009 88 complet ed [facility] INFLUENZA, UNSPECIFIED FORMULATION 2008 88 complet ed [facility] INFLUENZA, UNSPECIFIED FORMULATION 2007 88 complet ed [facility] TDAP 2007 115 complet ed Left Deltoid,L ot# [id number] xp. September, g.Anjali l [facility] INFLUENZA, UNSPECIFIED FORMULATION 2006 88 complet ed [facility] INFLUENZA, UNSPECIFIED FORMULATION 2005 88 complet ed per letter [facility] OUTSIDE FLU SHOT (HISTORICAL) 2004 88 complet ed [facility] N PNEUMOCOCCAL, UNSPECIFIED FORMULATION 2001 109 complet ed [facility] Results Combined list of recent chemistry, hematology and other laboratory results from Department of Defense and Veterans Affairs, ranging from 15 months to all on record, depending upon the facility. Order Name Results Value Reference Range Date Interpretation Specimen Comments Source HGA1C HEMOGLOBIN A1C/HEMOGL OBIN.TOTAL IN BLOOD 7.6 4.0 - 6.0 02/28 H Specimen Type: BLOOD No comment entered. Ordering Provider: MEAGHAN QUINTEROS Report Released Date/Time: Feb 28, 2024 09:05 AM Reporting Lab: [address] [address] Performing Lab: [address] [address] [facility] VITAMIN D, 25-HYDROX Y 25-HYDROXY VITAMIN D3 [MASS/VOLU ME] IN SERUM OR PLASMA 36.6 ng/mL 30 - 96 02/28 Specimen Type: SERUM No comment entered. Ordering Provider: MEAGHAN QUINTEROS Report Released Date/Time: Feb 28, 2024 09:05 AM Reporting Lab: [facility] [address] [place] [phone] Performing Lab: [address] [address] [facility] FERRITIN FERRITIN [MASS/VOLU ME] IN SERUM OR PLASMA 227.48 ng/mL 22 - 275 02/28 Specimen Type: SERUM No comment entered. Ordering Provider: MEAGHAN QUINTEROS Report Released Date/Time: Feb 28, 2024 09:05 AM Reporting Lab: [address] [address] Performing Lab: [address] [address] [facility] B12 COBALAMIN (VITAMIN B12) [MASS/VOLU ME] IN SERUM OR PLASMA 305 pg/mL 213 - 816 02/28 Specimen Type: SERUM No comment entered. Ordering Provider: MEAGHAN QUINTEROS Report Released Date/Time: Feb 29, 2024 02:14 PM Reporting Lab: [place] [address] [facility] [address] Performing Lab: [place] [address] [facility] [address] [facility] IRON/TIBC PROFILE IRON BINDING CAPACITY [MASS/VOLU ME] IN SERUM OR PLASMA 251 ug/dL 250 - 450 02/28 Specimen Type: SERUM No comment entered. Ordering Provider: MEAGHAN QUINTEROS Report Released Date/Time: Feb 28, 2024 09:05 AM Reporting Lab: [place] [address] [facility] [phone] Performing Lab: [place] [address] [facility] [address] [facility] IRON/TIBC PROFILE TRANSFERRI N [MASS/VOLU ME] IN SERUM OR PLASMA 201 mg/dL 163 - 344 02/28 Specimen Type: SERUM No comment entered. Ordering Provider: MEAGHAN QUINTEROS Report Released Date/Time: Feb 28, 2024 09:05 AM Reporting Lab: [place] [address] [facility] [address] Performing Lab: [place] [address] [facility] [address] [facility] IRON/TIBC PROFILE IRON SATURATION [MASS FRACTION] IN SERUM OR PLASMA 14 20 - 50 02/28 L Specimen Type: SERUM No comment entered. Ordering Provider: MEAGHAN QUINTEROS Report Released Date/Time: Feb 28, 2024 09:05 AM Reporting Lab: [place] [address] [facility] [phone] Performing Lab: [place] [address] [facility] [phone] [facility] IRON/TIBC PROFILE IRON [MASS/VOLU ME] IN SERUM OR PLASMA 35 ug/dL 65 - 175 02/28 L Specimen Type: SERUM No comment entered. Ordering Provider: MEAGHAN QUINTEROS Report Released Date/Time: Feb 28, 2024 09:05 AM Reporting Lab: [place] [address] [facility] [phone] Performing Lab: [facility] [address] [facility] [address] [facility] RENAL PANEL CREATININE [MASS/VOLU ME] IN SERUM OR PLASMA 0.81 mg/dL 0.7 - 1.3 02/28 Specimen Type: PLASMA Comment: No hemolysis noted. Ordering Provider: MEAGHAN QUINTEROS Report Released Date/Time: Feb 28, 2024 09:05 AM Reporting Lab: [place] [address] [facility] [phone] Performing Lab: [facility] [address] [facility] [address] [facility] RENAL PANEL UREA NITROGEN [MASS/VOLU ME] IN SERUM OR PLASMA 9.5 mg/dL 9.0 - 25.0 02/28 Specimen Type: PLASMA Comment: No hemolysis noted. Ordering Provider: MEAGHAN QUINTEROS Report Released Date/Time: Feb 28, 2024 09:05 AM Reporting Lab: [place] [address] [facility] [phone] Performing Lab: [facility] [address] [facility] [address] [facility] RENAL PANEL GLUCOSE [MASS/VOLU ME] IN SERUM OR PLASMA 108 mg/dL 72 - 99 02/28 H Specimen Type: PLASMA Comment: No hemolysis noted. Ordering Provider: MEAGHAN QUINTEROS Report Released Date/Time: Feb 28, 2024 09:05 AM Reporting Lab: [place] [address] [facility] [address] Performing Lab: [place] [address] [facility] [address] [facility] RENAL PANEL SODIUM [MOLES/VOL UME] IN SERUM OR PLASMA 135 meq/L 136 - 145 02/28 L Specimen Type: PLASMA Comment: No hemolysis noted. Ordering Provider: MEAGHAN QUINTEROS Report Released Date/Time: Feb 28, 2024 09:05 AM Reporting Lab: [place] [address] [facility] [phone] Performing Lab: [place] [address] [facility] [address] [facility] RENAL PANEL POTASSIUM [MOLES/VOL UME] IN SERUM OR PLASMA 4.4 meq/L 3.5 - 5 02/28 Specimen Type: PLASMA Comment: No hemolysis noted. Ordering Provider: MEAGHAN QUINTEROS Report Released Date/Time: Feb 28, 2024 09:05 AM Reporting Lab: [place] [address] [facility] [address] Performing Lab: [facility] [address] [facility] [address] [facility] RENAL PANEL CHLORIDE [MOLES/VOL UME] IN SERUM OR PLASMA 100 meq/L 98 - 107 02/28 Specimen Type: PLASMA Comment: No hemolysis noted. Ordering Provider: MEAGHAN QUINTEROS Report Released Date/Time: Feb 28, 2024 09:05 AM Reporting Lab: [place] [address] [facility] [address] Performing Lab: [facility] [address] [facility] [address] [facility] RENAL PANEL CARBON DIOXIDE, TOTAL [MOLES/VOL UME] IN SERUM OR PLASMA 24 meq/L 22 - 31 02/28 Specimen Type: PLASMA Comment: No hemolysis noted. Ordering Provider: MEAGHAN QUINTEROS Report Released Date/Time: Feb 28, 2024 09:05 AM Reporting Lab: [address] [address] Performing Lab: [facility] [address] [facility] [address] [facility] RENAL PANEL CALCIUM [MASS/VOLU ME] IN SERUM OR PLASMA 9.2 mg/dL 8.4 - 10.4 02/28 Specimen Type: PLASMA Comment: No hemolysis noted. Ordering Provider: MEAGHAN QUINTEROS Report Released Date/Time: Feb 28, 2024 09:05 AM Reporting Lab: [facility] [address] [facility] [address] Performing Lab: [facility] [address] [facility] [address] [facility] RENAL PANEL PHOSPHATE [MASS/VOLU ME] IN SERUM OR PLASMA 3.8 mg/dL 2.3 - 4.7 02/28 Specimen Type: PLASMA Comment: No hemolysis noted. Ordering Provider: MEAGHAN QUINTEROS Report Released Date/Time: Feb 28, 2024 09:05 AM Reporting Lab: [facility] [address] [facility] [address] Performing Lab: [place] [address] [facility] [address] [facility] RENAL PANEL ALBUMIN [MASS/VOLU ME] IN SERUM OR PLASMA 4.1 g/dL 3.4 - 5 02/28 Specimen Type: PLASMA Comment: No hemolysis noted. Ordering Provider: MEAGHAN QUINTEROS Report Released Date/Time: Feb 28, 2024 09:05 AM Reporting Lab: [facility] [address] [facility] [phone] Performing Lab: [place] [address] [facility] [address] [facility] RENAL PANEL GLOMERULAR FILTRATION RATE/1.73 SQ M.PREDICTE D [VOLUME RATE/AREA] IN SERUM, PLASMA OR BLOOD BY CREATININE -BASED FORMULA (CKD-EPI 2020) 85.3 60 02/28 Specimen Type: PLASMA Comment: No hemolysis noted. Ordering Provider: MEAGHAN QUINTEROS Report Released Date/Time: Feb 28, 2024 09:05 AM Reporting Lab: [place] [address] [facility] [phone] Performing Lab: [place] [address] [facility] [address] [facility] CBC LEUKOCYTES [#/VOLUME] IN BLOOD BY AUTOMATED COUNT 10.0 10*3/uL 3.6 - 11.2 02/28 Specimen Type: BLOOD No comment entered. Ordering Provider: MEAGHAN QUINTEROS Report Released Date/Time: Feb 28, 2024 09:05 AM Reporting Lab: [place] [address] [facility] [address] Performing Lab: [address] [address] [facility] CBC ERYTHROCYT ES [#/VOLUME] IN BLOOD BY AUTOMATED COUNT 4.36 10*6/uL 4.10 - 5.70 02/28 Specimen Type: BLOOD No comment entered. Ordering Provider: MEAGHAN QUINTEROS Report Released Date/Time: Feb 28, 2024 09:05 AM Reporting Lab: [address] [address] Performing Lab: [place] [address] [facility] [address] [facility] CBC HEMOGLOBIN [MASS/VOLU ME] IN BLOOD 13.4 g/dL 13.1 - 16.8 02/28 Specimen Type: BLOOD No comment entered. Ordering Provider: MEAGHAN QUINTEROS Report Released Date/Time: Feb 28, 2024 09:05 AM Reporting Lab: [place] [address] [facility] [id number] Performing Lab: [address] [address] [facility] HEMATOCRIT [VOLUME FRACTION] OF BLOOD 39.8 38.2 - 48.4 02/28 Specimen Type: BLOOD No comment entered. Ordering Provider: MEAGHAN QUINTEROS Report Released Date/Time: Feb 28, 2024 09:05 AM Reporting Lab: [address] [address] Performing Lab: [address] [address] [facility] MCV [ENTITIC VOLUME] BY AUTOMATED COUNT 91.3 fL 80.0 - 100.0 02/28 Specimen Type: BLOOD No comment entered. Ordering Provider: MEAGHAN QUINTEROS Report Released Date/Time: Feb 28, 2024 09:05 AM Reporting Lab: [address] [address] Performing Lab: [address] [address] [facility] MCH [ENTITIC MASS] BY AUTOMATED COUNT 30.7 pg 27.0 - 34.0 02/28 Specimen Type: BLOOD No comment entered. Ordering Provider: MEAGHAN QUINTEROS Report Released Date/Time: Feb 28, 2024 09:05 AM Reporting Lab: [address] [phone] Performing Lab: [address] [address] [facility] MCHC [MASS/VOLU ME] BY AUTOMATED COUNT 33.7 g/dL 33.0 - 36.0 02/28 Specimen Type: BLOOD No comment entered. Ordering Provider: MEAGHAN QUINTEROS Report Released Date/Time: Feb 28, 2024 09:05 AM Reporting Lab: [place] [address] [facility] [address] Performing Lab: [address] [address] [facility] CBC PLATELETS [#/VOLUME] IN BLOOD BY AUTOMATED COUNT 334 10*3/uL 150 - 400 02/28 Specimen Type: BLOOD No comment entered. Ordering Provider: MEAGHAN QUINTEROS Report Released Date/Time: Feb 28, 2024 09:05 AM Reporting Lab: [facility] [address] [facility] [address] Performing Lab: [facility] [address] [place] [address] [facility] CBC PLATELET MEAN VOLUME [ENTITIC VOLUME] IN BLOOD BY AUTOMATED COUNT 9.2 fL 7.5 - 11.2 02/28 Specimen Type: BLOOD No comment entered. Ordering Provider: MEAGHAN QUINTEROS Report Released Date/Time: Feb 28, 2024 09:05 AM Reporting Lab: [place] [address] [facility] [address] Performing Lab: [address] [address] [facility] CBC ERYTHROCYT E DISTRIBUTI ON WIDTH [RATIO] BY AUTOMATED COUNT 13.6 11.8 - 15.1 02/28 Specimen Type: BLOOD No comment entered. Ordering Provider: MEAGHAN QUINTEROS Report Released Date/Time: Feb 28, 2024 09:05 AM Reporting Lab: [place] [address] [facility] [address] Performing Lab: [place] [address] [facility] [address] [facility] CBC SEGMENTED NEUTROPHIL S/100 LEUKOCYTES IN BLOOD BY MANUAL COUNT 66.1 02/28 Specimen Type: BLOOD No comment entered. Ordering Provider: MEAGHAN QUINTEROS Report Released Date/Time: Feb 28, 2024 09:05 AM Reporting Lab: [place] [address] [facility] [address] Performing Lab: [place] [address] [facility] [address] [facility] CBC MONOCYTES/ 100 LEUKOCYTES IN BLOOD BY AUTOMATED COUNT 9.6 02/28 Specimen Type: BLOOD No comment entered. Ordering Provider: MEAGHAN QUINTEROS Report Released Date/Time: Feb 28, 2024 09:05 AM Reporting Lab: [place] [address] [facility] [address] Performing Lab: [facility] [address] [facility] [address] [facility] CBC EOSINOPHIL S/100 LEUKOCYTES IN BLOOD BY MANUAL COUNT 1.7 02/28 Specimen Type: BLOOD No comment entered. Ordering Provider: MEAGHAN QUINTEROS Report Released Date/Time: Feb 28, 2024 09:05 AM Reporting Lab: [facility] [address] [facility] [address] Performing Lab: [facility] [address] [facility] [address] [facility] CBC BASOPHILS/ 100 LEUKOCYTES IN BLOOD BY MANUAL COUNT 1.7 02/28 Specimen Type: BLOOD No comment entered. Ordering Provider: MEAGHAN QUINTEROS Report Released Date/Time: Feb 28, 2024 09:05 AM Reporting Lab: [facility] [address] [facility] [address] Performing Lab: [facility] [address] [facility] [address] [facility] CBC PAPPENHEIM ER BODIES 0 02/28 Specimen Type: BLOOD No comment entered. Ordering Provider: MEAGHAN QUINTEROS Report Released Date/Time: Feb 28, 2024 09:05 AM Reporting Lab: [facility] [address] [facility] [address] Performing Lab: [facility] [address] [facility] [address] [facility] CBC LYMPHOCYTE S/100 LEUKOCYTES IN BLOOD BY MANUAL COUNT 11.3 02/28 Specimen Type: BLOOD No comment entered. Ordering Provider: MEAGHAN QUINTEROS Report Released Date/Time: Feb 28, 2024 09:05 AM Reporting Lab: [facility] [address] [facility] [address] Performing Lab: [facility] [address] [facility] [address] [facility] CBC VARIANT LYMPHOCYTE S/100 LEUKOCYTES IN BLOOD BY MANUAL COUNT 9.6 02/28 Specimen Type: BLOOD No comment entered. Ordering Provider: MEAGHAN QUINTEROS Report Released Date/Time: Feb 28, 2024 09:05 AM Reporting Lab: [facility] [address] [place] [phone] Performing Lab: [phone] [place] [address] CBC PLATELET ADEQUACY [PRESENCE] IN BLOOD BY LIGHT MICROSCOPY ADEQUATE 02/28 Specimen Type: BLOOD No comment entered. Ordering Provider: MEAGHAN QUINTEROS Report Released Date/Time: Feb 28, 2024 09:05 AM Reporting Lab: [address] [address] Performing Lab: [address] [phone] CBC MANUAL DIFFERENTI AL COMMENT [INTERPRET ATION] IN BLOOD NARRATIVE Yes 02/28 Specimen Type: BLOOD No comment entered. Ordering Provider: MEAGHAN QUINTEROS Report Released Date/Time: Feb 28, 2024 09:05 AM Reporting Lab: [address] [address] Performing Lab: [address] [address] [facility] CBC BASOPHILS [#/VOLUME] IN BLOOD BY MANUAL COUNT 0.17 10*3/uL 0.01 - 0.20 02/28 Specimen Type: BLOOD No comment entered. Ordering Provider: MEAGHAN QUINTEROS Report Released Date/Time: Feb 28, 2024 09:05 AM Reporting Lab: [address] [address] Performing Lab: [address] [address] [facility] CBC EOSINOPHIL S [#/VOLUME] IN BLOOD BY MANUAL COUNT 0.17 10*3/uL 0.00 - 0.60 02/28 Specimen Type: BLOOD No comment entered. Ordering Provider: MEAGHAN QUINTEROS Report Released Date/Time: Feb 28, 2024 09:05 AM Reporting Lab: [place] [phone] Performing Lab: [address] [address] [facility] CBC MONOCYTES [#/VOLUME] IN BLOOD BY MANUAL COUNT 0.96 10*3/uL 0.19 - 0.80 02/28 H Specimen Type: BLOOD No comment entered. Ordering Provider: MEAGHAN QUINTEROS Report Released Date/Time: Feb 28, 2024 09:05 AM Reporting Lab: [place] [phone] Performing Lab: [address] [phone] [place] [address] CBC LYMPHOCYTE S [#/VOLUME] IN BLOOD BY MANUAL COUNT 2.09 10*3/uL 0.77 - 4.50 02/28 Specimen Type: BLOOD No comment entered. Ordering Provider: MEAGHAN QUINTEROS Report Released Date/Time: Feb 28, 2024 09:05 AM Reporting Lab: [address] [address] Performing Lab: [phone] [place] [address] CBC NEUTROPHIL S [#/VOLUME] IN BLOOD BY MANUAL COUNT 6.61 10*3/uL 2.10 - 8.00 02/28 Specimen Type: BLOOD No comment entered. Ordering Provider: MEAGHAN QUINTEROS Report Released Date/Time: Feb 28, 2024 09:05 AM Reporting Lab: [address] [address] Performing Lab: [address] [address] [facility] TSH W/ REFLEX FT4 (STL) THYROTROPI N [UNITS/VOL UME] IN SERUM OR PLASMA 3.546 u[IU]/mL 0.47 - 5 11/13 Specimen Type: PLASMA No comment entered. Ordering Provider: NAYLA DUNN Report Released Date/Time: Nov 14, 2023 04:23 AM Reporting Lab: [place] [address] [facility] [address] Performing Lab: [place] [address] [facility] [phone] MAGNESIUM MAGNESIUM [MASS/VOLU ME] IN SERUM OR PLASMA 2.1 mg/dL 1.6 - 2.6 11/13 Specimen Type: PLASMA Comment: No hemolysis noted. Ordering Provider: NAYLA DUNN Report Released Date/Time: Nov 14, 2023 04:23 AM Reporting Lab: [place] [address] [facility] [address] Performing Lab: [place] [address] [facility] [address] [facility] PHOSPHORO US PHOSPHATE [MASS/VOLU ME] IN SERUM OR PLASMA 2.9 mg/dL 2.3 - 4.7 11/13 Specimen Type: PLASMA Comment: No hemolysis noted. Ordering Provider: NAYLA DUNN Report Released Date/Time: Nov 14, 2023 04:23 AM Reporting Lab: [place] [address] [facility] [address] Performing Lab: [phone] [place] [address] Vital Signs Combined list of inpatient and outpatient Vital Signs from Department of Defense and Veterans Affairs, ranging from 12 months to all on record, depending upon the facility. Vital Sign Value Date Comments Source SYSTOLIC BLOOD PRESSURE 136 02/29/2024 13:38:43 [facility] DIASTOLIC BLOOD PRESSURE 68 02/29/2024 13:38:43 [facility] PULSE OXIMETRY 96 02/29/2024 13:38:43 [facility] WEIGHT 198 02/29/2024 13:38:43 [facility] BMI 26kg/m2 02/29/2024 13:38:43 [facility] PAIN 0 02/29/2024 13:38:43 Yohan [facility] TEMPERATURE 97.8 02/29/2024 13:38:43 [facility] PULSE 73 02/29/2024 13:38:43 . [facility] RESP[facility]ATION 16 02/29/2024 13:38:43 [facility] SYSTOLIC BLOOD PRESSURE 122 11/23/2023 11:38:57 [facility] DIASTOLIC BLOOD PRESSURE 60 11/23/2023 11:38:57 [facility] PULSE OXIMETRY 97 11/23/2023 11:38:57 Antoine Doyle [facility] WEIGHT 187 11/23/2023 11:38:57 . Yohan [facility] BMI 25kg/m2 11/23/2023 11:38:57 . Yohan [facility] PAIN 0 11/23/2023 11:38:57 [facility] Yohan [facility] TEMPERATURE 97.3 11/23/2023 11:38:57 [facility] PULSE 66 11/23/2023 11:38:57 [facility] Yohan [facility] RESPIRATION 16 11/23/2023 11:38:57 [facility] PAIN 0 11/14/2023 00:51:00 [facility] SYSTOLIC BLOOD PRESSURE 122 11/13/2023 14:07:51 [facility] DIASTOLIC BLOOD PRESSURE 69 11/13/2023 14:07:51 [facility] PULSE OXIMETRY 97 11/13/2023 14:07:51 S Vivek [facility] TEMPERATURE 98.7 11/13/2023 14:07:51 [facility] PULSE 77 11/13/2023 14:07:51 [facility] RESPIRATION 14 11/13/2023 14:07:51 [facility] SYSTOLIC BLOOD PRESSURE 147 10/18/2023 10:32:02 [facility] DIASTOLIC BLOOD PRESSURE 77 10/18/2023 10:32:02 [facility] PULSE OXIMETRY 96 10/18/2023 10:32:02 [facility] WEIGHT 189.3 10/18/2023 10:32:02 [facility] BMI 25kg/m2 10/18/2023 10:32:02 [facility] PAIN 3 10/18/2023 10:32:02 [facility] TEMPERATURE 98 10/18/2023 10:32:02 [facility] PULSE 73 10/18/2023 10:32:02 [facility] RESPIRATION 18 10/18/2023 10:32:02 [facility] Encounters Combined list of: 1) Encounters from [facility] facilities going back up to thelast 18 months. 2) Encounters from the Department of Defense facilities going back up to 280 months. 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 12/18 [facility] Outpatient Encounter 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
LESLY BAPTISTE R 03/13 [facility] Outpatient Encounter [id number] 03/14 [facility] OFFICE O/P EST LOW 20-29 MIN [id number] 5 Diagnos is: ICD-10- CM R07.9 Chest pain, unspeci fied
ARIES QUINTEROSA 05/03 [facility] EMERGENCY DEPT VISIT MOD MDM [id number] 3 Diagnos is: ICD-10- CM R07.9 Chest pain, unspeci fied
MANASA RANDALL 05/03 [facility] Outpatient Encounter [id number] 05/03 [facility] Outpatient Encounter [id number] MANASA RANDALL 05/03 [facility] OFFICE O/P EST MOD 30 MIN [id number] Diagnos is: ICD-10- CM R05.3 Chronic cough<b r/> ALDAIR, MEAGHAN 05/18 [facility] OFFICE O/P EST LOW 20 MIN [id number] 4 Diagnos is: ICD-10- CM 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, right eye, with inact chrdl neovas< br/> KILEY TENORIO 05/21 [facility] OFFICE O/P EST LOW 20 MIN [id number] [id number] 5 Diagnos is: ICD-10- CM H35.323 2 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, bi, with inact chrdl neovas< br/> LILLIAN RUSSELL 07/29 [facility] CPTR OPHTH DX IMG POST SEGMT [id number] Diagnos is: ICD-10- CM 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, right eye, with inact chrdl neovas< br/> ANASTASIA TANNER I M 07/29 [facility] INJECTION EYE DRUG [id number] [id number] 4 Diagnos is: ICD-10- CM H35.322 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, left eye, with actv chrdl neovas< br/> KILEY TENORIO 07/29 [facility] Outpatient Encounter [id number] 09/09 [facility] Outpatient Encounter [id number] TRACYPAIGE Shahla 10/08 [facility] Outpatient Encounter [id number] 10/08 [facility] OFFICE O/P EST MOD 30 MIN [id number] [id number] 1 Diagnos is: ICD-10- CM H81.399 Other periphe ral vertigo , unspeci fied ear<br/ > ABDOUL BURGOS 10/11 [facility] Outpatient Encounter [id number] 10/11 [facility] INTRM OPH EXAM EST PATIENT [id number] [id number] 3 Diagnos is: ICD-10- CM 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
MILTON KAISER M 10/17 [facility] Outpatient Encounter [id number] 9 10/18 [facility] Outpatient Encounter [id number] 9 11/05 [facility] Outpatient Encounter [id number] 7 11/06 [facility] Outpatient Encounter [id number] [id number] 9 11/12 [facility] Outpatient Encounter [id number] Diagnos is: ICD-10- CM R07.89 Other chest pain
OU,JIAFU 11/12 [facility] EMERGENCY DEPT VISIT MOD MDM [id number] Diagnos is: ICD-10- CM R53.1 Weaknes s
ZOYA MARIA 11/12 [facility] Outpatient Encounter [id number] 11/12 [facility] Inpatient Encounter [id number] [id number] Admit Reason: FAILURE TO THRIVE< br/> TWOA,MED 11/12 [facility] Inpatient Encounter [id number] PRACHI CASTRO 11/12 [facility] Encounter [id number] PR[facility]I CASTRO 11/12 [facility] Inpatient Encounter [id number] PRACHI CASTRO 11/13 [facility] N [facility] Inpatient Encounter [id number] PRACHI CASTRO 11/13 [facility] Inpatient Encounter [id number] ABDOUL BURGOS 11/13 [facility] Inpatient Encounter [id number] Kevin PHAM 11/13 [facility] SELF CARE MNGMENT TRAINING [id number] [id number] 4 Diagnos is: ICD-10- CM M62.81 Muscle weaknes s (genera lized)< br/> ALEIDA TOVAR 11/13 [facility] OT EVAL LOW COMPLEX 30 MIN [id number] [id number] Diagnos is: ICD-10- CM R27.0 Ataxia, unspeci fied
LEWISAARON HAYES 11/13 [facility] Inpatient Encounter [id number] AMADO 11/13 [facility] 1ST HOSP IP/OBS MODERATE 55 [id number] [id number] 7 Diagnos is: ICD-10- CM R53.82 Chronic fatigue , unspeci fied
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
VIRGIE OLSON 11/13 [facility] Inpatient Encounter [id number] 3 WALKER JC 11/13 [facility] Inpatient Encounter [id number] WALKER JC 11/13 [facility] [employer] BUSINESS CONTROL SPECIALIST INDIVIDU [id number] [id number] 5 Diagnos is: ICD-10- CM Z71.81 Spiritu al or religio us credit counselor ing<br/ > TENABRETDavian BARKER R 11/13 [facility] Inpatient Encounter [id number] WALKER JC AEDAVIDA 11/13 [facility] Outpatient Encounter [id number] 11/15 [facility] Outpatient Encounter [id number] ARIES QUINTEROSA 11/18 [facility] CASE MANAGEMENT [id number] [id number] 3 Diagnos is: ICD-10- CM R07.9 Chest pain, unspeci fied
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
CATHYKUSUMARIES BOLTONA 02/28 [facility] OFFICE O/P EST LOW 20 MIN [id number] [id number] Diagnos is: ICD-10- CM L57.0 Actinic keratos is
LESLY BAPTISTE R 03/03 [facility] INTRM OPH EXAM EST PATIENT [id number] Diagnos is: ICD-10- CM H35.322 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, left eye, with actv chrdl neovas< br/> Lian EVANSUN G 03/10 [facility] CPTR OPHTH DX IMG POST SEGMT [id number] 1 Diagnos is: ICD-10- CM H35.321 0 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, right eye, stage unspeci fied
ANASTASIA TANNER 03/10 [facility] Outpatient Encounter [id number] 03/10 [facility] Outpatient Encounter [id number] 7 03/13 [facility] Outpatient Encounter [id number] 03/21 [facility] Outpatient Encounter [id number] 04/16 [facility] Outpatient Encounter [id number] 7 04/21 [facility] Outpatient Encounter [id number] 04/29 [facility] Outpatient Encounter [id number] [id number] SUKI MENJIVAR 04/29 [facility] Outpatient Encounter [id number] MEAGHAN QUINTEROS 05/10 [facility] N [facility] INTRM OPH EXAM EST PATIENT [id number] Diagnos is: ICD-10- CM H35.313 4 Nexdtve age-rel mclr degn, bi, adv atrpc with subfove al invl
Shahla FAULKNER 05/15 [facility] N Social History Combined list of available smoking, tobacco, and other social history from Department of Defense and Veterans Affairs facilities. Social History Type Response Date Comment Sour e Tobacco smoking status NHIS VA-TOBACCO FORMER USER 11/23/2023 [facility] History of tobacco use OR-TOBACCO QUIT 15 YRS OR MORE 11/23/2023 [facility] History of tobacco use ORYX ADMIT TOBACCO SCREEN NO 11/14/2023 [facility] History of tobacco use OR-TOBACCO NEVER USED 08/04/2022 [facility] History of tobacco use VA-TOBACCO FORMER USER 03/11/2021 [facility] History of tobacco use VA-TOBACCO FORMER USER 04/19/2018 [facility] History of tobacco use QUIT TOBACCO >7 YEARS AGO 07/24/2017 [facility] History of tobacco use QUIT TOBACCO >7 YEARS AGO 04/16/2017 [facility] History of tobacco use LIFETIME NON-USER OF TOBACCO 02/01/2017 [facility] History of tobacco use QUIT TOBACCO >7 YEARS AGO 11/15/2016 [facility] History of tobacco use QUIT TOBACCO >7 YEARS AGO 09/11/2016 [facility] History of tobacco use QUIT TOBACCO >7 YEARS AGO 12/09/2015 [facility] History of tobacco use CURRENT TOBACCO USER 01/05/2015 [facility] History of tobacco use CURRENT TOBACCO USER 03/18/2014 [facility] History of tobacco use CURRENT TOBACCO USER 11/04/2013 [facility] History of tobacco use QUIT TOBACCO >7 YEARS AGO 11/26/2012 [facility] History of tobacco use QUIT TOBACCO >7 YEARS AGO 05/03/2009 [facility] History of tobacco use CURRENT TOBACCO USER 07/06/2008 [facility] History of tobacco use QUIT TOBACCO >12 MO and <7 YRS AGO 07/25/2007 [facility] History of tobacco use TOBACCO [facility] 06/07/2006 [facility] History of tobacco use CURRENT TOBACCO USER 08/25/2005 [facility] History of tobacco use CURRENT NON-TOBACCO USER-HX OF USE 10/25/2004 [facility] History of tobacco use CURRENT NON-TOBACCO USER-HX OF USE 08/24/2003 [facility] History of tobacco use CURRENT NON-TOBACCO USER-HX OF USE 08/05/2002 QUIT [id number] [facility] History of tobacco use CURRENT NON-TOBACCO USER-HX OF USE 04/15/2001 quit in 1980 [facility] Plan of Care List of future care activities from Department of [facility] Affairs facilities. Additional future care activities may be listed in the Assessment and Plan section. Date/Time Care Activity Care Activity Detail Facili ty 05/26/2024 AMBULATORY - SURGERY AMBULATORY - SURGERY [facility] 07/02/2024 AMBULATORY - MEDICINE AMBULATORY - MEDICI [facility] Advance Directives List of completed, amended, or rescinded Advance Directives [facility] at [facility] [facility] facilities. An actual copy of the Directive is not included. Date Advance Directive Provider Source 10/19/2023 ADVANCE DIRECTIVE WANG MURILLO [facility] 12/12/2022 RESCINDED ADVANCE DIRECTIVE JITENDRA MEADOWS [facility] 09/12/2016 ADVANCE DIRECTIVE DISCUSSION TAMIKO MEADOWS [facility]
--- OUTSIDE RECORDS SUMMARY | 2024-05-17 21:49 | XMS_ITS | Encounter Summary ---
Author Name [facility] [place] [facility] [place] Address [address] [place] [address] Care Team Providers Care Pharmacist Critical Care Name Role Phone MEAGHAN QUINTEROS Primary Care Provider Unavailabl e Insurance Providers: All historical and current Section Date Range: From patient's date of to the date document was created. This section includes the names of all active insurance providers for the patient. Insurance Provider Type of Coverage Plan Name Start of Policy Coverage End of Policy Coverage Group Number Member ID Insurance Provider's Telephone Number Policy Rooney's Name Patient's Relationship to Policy Rooney MEDICARE (WNR) MEDICARE (M) PART A Aug 12, 2001 PART A [id number] JESUS ABRAHAM PATIENT MEDICARE (WNR) MEDICARE (M) PART B Aug 12, 2001 PART B [id number] [phone] JESUS ABRAHAM PATIENT Selected Encounter This section includes the information on record at [place] for the Encounter. 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 Date/Time Primary/Secondary Diagnosis Diagnosis Name Provider Source Mar 10, 2024 01:28 PM PRIMARY Exdtve age-rel mclr degn, left eye, with actv chrdl santiago SHELBYIGNACIA Ravi G [facility] Plan of Treatment: Future Appointments (+ 6 months) and Future Tests (+/- 45 days) The Plan of Treatment section includes future care activities for the patient from all [place] treatmentfacilities. This section includes future appointments and future orders which are active, pending or scheduled. Future Appointments This section includes appointments that were scheduled to occur 6 months from the date of the Encounter, up to a maximum of 20 appointments. The data comes from all [place] treatment facilities. Appointment Date/Time Appointment Type Appointme nt Facility Name Apr 16, 2024 11:00 AM AMBULATORY - REHAB MEDICIN E [facility] May 15, 2024 11:00 AM AMBULATORY - SURGERY [facility] May 26, 2024 12:30 PM AMBULATORY - SURGERY [facility] Jul 02, 2024 02:30 PM AMBULATORY - MEDICINE [facility] Lab Results: +/- 30 days of the encounter This section includes the Chemistry and Hematology Lab Results on record with [facility] for the patient. Radiology Reports and Pathology Reports are provided separately, in subsequent sections. Lab Results This section contains the Chemistry/Hematology Results that were resulted 30 days before or 30 daysafter the date of the Encounter. Date/Time Source Result Type Result - Unit Interpretation Reference Range Comment Feb 29, 2024 02:17 PM [facility] HGA1C Specimen Type: BLOOD No comment entered. Ordering Provider: SA SHARI QUITNEROS Report Released Date/Time: Feb 28, 2024 09:05 AM Reporting Lab: [facility] [address] [facility] [address] Performing Lab: [facility] [address] [facility] [address] HGA1C 7.6 H 4.0-6.0 Feb 29, 2024 02:17 PM [facility] VITAMIN D, 25-HYDROXY Specimen Type: SERUM No comment entered. Ordering Provider: SA SHARI QUINTEROS Report Released Date/Time: Feb 28, 2024 09:05 AM Reporting Lab: [facility] [address] [facility] [address] Performing Lab: [facility] [address] [facility] [address] VITAMIN D, 25-HYDROXY 36.6 ng/mL 30-96 Feb 29, 2024 02:17 PM [facility] FERRITIN Specimen Type: SERUM No comment entered. Ordering Provider: SA SHARI QUINTEROS Report Released Date/Time: Feb 28, 2024 09:05 AM Reporting Lab: [facility] [address] [facility] [address] Performing Lab: [address] [address] FERRITIN 227.48 ng/mL 22-275 Feb 29, 2024 02:17 PM [facility] B12 Specimen Type: SERUM No comment entered. Ordering Provider: SA SHARI QUINTEROS Report Released Date/Time: Feb 29, 2024 02:14 PM Reporting Lab: [place] [address] [facility] [address] Performing Lab: [address] [address] B12 305 pg/mL 213-816 Feb 29, 2024 02:17 PM [facility] IRON/TIBC PROFILE Specimen Type: SERUM No comment entered. Ordering Provider: SA SHARI QUINTEROS Report Released Date/Time: Feb 28, 2024 09:05 AM Reporting Lab: [address] [address] Performing Lab: [address] [address] TIBC 251 ug/dL 250-450 TRANSFERRIN 201 mg/dL 163-344 IRON SATURATION 14 L 20-50 IRON 35 ug/dL L 65-175 Feb 29, 2024 02:17 PM [facility] RENAL PANEL Specimen Type: PLASMA Comment: No hemolysis noted. Ordering Provider: SA SHARI QUINTEROS Report Released Date/Time: Feb 28, 2024 09:05 AM Reporting Lab: [address] [place] [address] Performing Lab: [address] [address] CREATININE 0.81 mg/dL 0.7-1.3 UREA NITROGEN 9.5 mg/dL 9.0-25.0 GLUCOSE 108 mg/dL H 72-99 SODIUM 135 meq/L L 136-145 POTASSIUM 4.4 meq/L 3.5-5 CHLORIDE 100 meq/L 98-107 CARBON DIOXIDE 24 meq/L 22-31 CALCIUM 9.2 mg/dL 8.4-10.4 PHOSPHOROUS 3.8 mg/dL 2.3-4.7 ALBUMIN 4.1 g/dL 3.4-5 EGFR (CKD-EPI 2020) 85.3 >60 Feb 29, 2024 02:17 PM [facility] CBC Specimen Type: BLOOD No comment entered. Ordering Provider: SA SHARI QUINTEROS Report Released Date/Time: Feb 28, 2024 09:05 AM Reporting Lab: [address] [address] Performing Lab: [address] [address] WBC 10.0 10*3/uL 3.6-11.2 RBC 4.36 10*6/uL 4.10-5.70 HGB 13.4 g/dL 13.1-16.8 HCT 39.8 38.2-48.4 MCV 91.3 fL 80.0-100.0 MCH 30.7 pg 27.0-34.0 MCHC 33.7 g/dL 33.0-36.0 PLT 334 10*3/uL 150-400 MPV 9.2 fL 7.5-11.2 RDW 13.6 11.8-15.1 NEUTROPHILS 66.1 MONOCYTES 9.6 EOSINOPHILS 1.7 BASOPHILS 1.7 PAPPENHEIMER BODIES 0 LYMPHOCYTES 11.3 ATYPICAL LYMPHOCYTES 9.6 PLT EST-CV ADEQUATE ADEQUATE NORMRBC Yes BASO#-MDIFF 0.17 10*3/uL 0.01-0.20 EO#-MDIFF 0.17 10*3/uL 0.00-0.60 MONO#-MDIFF 0.96 10*3/uL H 0.19-0.80 LYMPH#-MDIFF 2.09 10*3/uL 0.77-4.50 NEUT#-MDIFF 6.61 10*3/uL 2.10-8.00 Social History: Smoking Status (Most current) and Tobacco Use (All prior to encounter date) This section includes the most current, and the historical, smoking and tobacco- related health factors from the [place] facility where the Encounter took place. Current Smoking Status This section includes the most current smoking, or tobacco-related health factor, from the [place] facility where the Encounter took place. Date/Time Current Smoking Status Comment Facil ity Nov 23, 2023 11:30 AM VA-TOBACCO NEVER USED [facility] Tobacco Use History This section includes a history of the smoking, or tobacco-related health factors, that were collected on or before the date of the Encounter. The data comes from the [place] facility where the Encounter took place. Date/Time Smoking Status/Tobacco Use Comment F [email or web address] Nov 23, 2023 11:30 AM VA-TOBACCO NEVER USED [facility] Nov 23, 2023 11:30 AM VA-TOBACCO QUIT 15 YRS OR MORE [facility] Nov 14, 2023 01:18 AM ORYX ADMIT TOBACCO SCREEN NO [facility] Aug 04, 2022 11:30 AM VA-TOBACCO NEVER USED [facility] Mar 11, 2021 10:30 AM VA-TOBACCO FORMER USER [facility] Mar 11, 2021 10:30 AM VA-TOBACCO QUIT 15 YRS OR MORE [facility] Apr 19, 2018 09:07 AM VA-TOBACCO FORMER USER [facility] Apr 19, 2018 09:07 AM VA-TOBACCO QUIT 15 YRS OR MORE [facility] Jul 24, 2017 08:16 AM QUIT TOBACCO >7 YEARS AGO [facility] Apr 16, 2017 12:43 PM QUIT TOBACCO >7 YEARS AGO [facility] Feb 01, 2017 11:47 AM LIFETIME NON-USER OF TOBACCO [facility] Nov 15, 2016 09:00 AM QUIT TOBACCO >7 YEARS AGO [facility] September 11, 2016 06:27 PM QUIT TOBACCO >7 YEARS AGO [facility] Dec 09, 2015 10:17 AM QUIT TOBACCO >7 YEARS AGO [facility] Jan 05, 2015 08:22 AM CURRENT TOBACCO USER [facility] Jan 05, 2015 08:22 AM TOBACCO MEDS OFFER ED BUT DECLINED [facility] Mar 18, 2014 10:40 AM CURRENT TOBACCO USER [facility] Mar 18, 2014 10:40 AM TOBACCO MEDS OFFER ED BUT DECLINED [facility] Nov 04, 2013 09:40 AM CURRENT TOBACCO USER [facility] Nov 26, 2012 08:10 AM QUIT TOBACCO >7 YEARS AGO [facility] May 03, 2009 08:45 AM QUIT TOBACCO >7 YEARS AGO [facility] Jul 06, 2008 08:46 AM CURRENT TOBACCO USER [facility] Jul 25, 2007 12:30 PM QUIT TOBACCO >12 M O & <7 YRS AGO [facility] Jun 07, 2006 09:21 AM CURRENT TOBACCO USER [facility] Jun 07, 2006 09:21 [facility] Aug 25, 2005 11:01 AM CURRENT TOBACCO USER [facility] Aug 25, 2005 11:01 AM TOBACCO CONTEMPLATION STAGE [facility] Oct 25, 2004 10:18 AM CURRENT NON-TOBACC O USER-HX OF USE [facility] Oct 25, 2004 10:18 AM TOBACCO TERMINATION STAGE [facility] Aug 24, 2003 10:43 AM CURRENT NON-TOBACC O USER-HX OF USE [facility] Aug 24, 2003 10:43 AM TOBACCO TERMINATION STAGE [facility] Aug 05, 2002 09:55 AM CURRENT NON-TOBACC O USER-HX OF USE QUIT [facility] Apr 15, 2001 08:28 AM CURRENT NON-TOBACC O USER-HX OF USE quit in 1979 [facility] Advance Directives: All historical and current Section Date Range: From patient's date of to the date document was created. This section includes ALL of a patient's completed or amended [place] Advance and Rescinded Directives. The entries below indicate that a directive exists for the patient, but an actual copy is not included with this document. The data comes from all [place] facilities. Date Advance Directives Provider Source Oct 19, 2023 ADVANCE DIRECTIVE LIDIAWANG [facility] Dec 12, 2022 RESCINDED ADVANCE DIRECTIVE JITENDRA MEADOWS [facility] September 12, 2016 ADVANCE DIRECTIVE DISCUSSION YVETTE MEADOWS [facility] Radiology Reports: +/- 30 days of the encounter Radiology Reports For cases when an order for radiology services may have been completed prior to the date of the Encounter, the report list includes the Radiology Reports that were completed up to 30 days before dateof the Encounter. For cases when an order for radiology services may have been completed after the date of the Encounter, the report list also includes the Radiology Reports that were completed up to30 days after date of the Encounter. The data comes from all [place] treatment facilities. Date/Time Radiology Report Provider Source Mar 08, 2024 01:10 PM US CAROTID BILATER AL: JESUS ABRAHAM [id number] -1935 [facility] Date: MAR 08, 2024@13:10 Req Phys: MEAGHAN QUINTEROS Loc: COM CARE-STL REHAB PT (Req'g L Img Loc: -ULTRASOUND Service: [address] [address] (Case [id number] COMPLETE) US CAROTID BILATERAL (US Detailed) CPT:44825 Reason for Study: TIA type symptoms evaluate for carotid stenosis Clinical History: Report Status: Verified Date Reported: MAR 10, 2024 Date Verified: MAR 10, 2024 Chief Passenger Ship Steward/Stewardess E-Sig:/ES/AMBER HAMPTON Report: Case [id number]. Bilateral extracranial carotid ultrasound examination. Grayscale, spectral Doppler, and color Doppler ultrasound examination of the extracranial right and left carotid circulation was obtained in transverse and longitudinal projections. The vertebral arteries were imaged in longitudinal projection. Comparison: None Findings: Right CCA peak systolic velocity: 99 cm/sec Right ICA peak systolic velocity: 79 cm/sec Right internal/common carotid ratio: 0.7 Right internal carotid: No evidence of hemodynamically significant stenosis. There is atherosclerotic plaque involving the right common carotid artery, bifurcation, and internal carotid artery. Right external carotid artery: Patent, with antegrade flow signal. Right vertebral artery: Patent, with antegrade flow signal. Left CCA peak systolic velocity: 92 cm/sec Left ICA peak systolic velocity: 64 cm/sec Left internal/common carotid ratio: 0.7 Left internal carotid: No evidence of hemodynamically significant stenosis. Atherosclerotic plaque is seen at the left common carotid artery and at the bifurcation. Left external carotid artery: Patent, with antegrade flow signal. Left vertebral artery: Patent, with antegrade flow signal. Bilateral mid and distal common carotid artery segments demonstrate foci of echogenic plaque without visible hemodynamically significant stenosis. These extend into the proximal ICA segment without visible significant stenosis. Impression: Right carotid: No evidence of hemodynamically significant stenosis. Left carotid: No evidence of hemodynamically significant stenosis. Jus Jaramillo MD (Fire Chief Deputy) I, Amber Hampton, have reviewed the images and report and concur with these findings. Primary Interpreting Staff: AMBER HAMPTON MD (Chief Passenger Ship Steward/Stewardess) Primary Interpreting Resident: Resident JEFFREY Physician /AMBER LYLE [facility] Encounter Notes: All associated encounter notes This section contains the clinical notes associated to the Encounter. Date/Time Encounter Note(s) Provider Source Mar 10, 2024 01:22 PM OPHTHALMOLOGY CONS ULT: LOCAL TITLE: OPHTHALMOLOGY CONSULT STL STANDARD TITLE: OPHTHALMOLOGY CONSULT DATE OF NOTE: MAR 10, 2024@13:22 ENTRY DATE: MAR 10, 2024@13:22:40 AUTHOR: IGNACIA EVANS EXP COSIGNER: URGENCY: STATUS: COMPLETED RETINA CLINIC = CC/HPI: Here for wet AMD f/u. Feels vision is the same. VA OD CF was CF was CF was sc20/200 was 20/200 was sc 20/200-1 ( recheck) was 20/200 was 20/80 was 20/80 was 20/200-1 OS ph20/70+2 was ph20/70 was phcc20/50 was 20/40-3 was 20/40 was 20/40 was 20/60 was 20/50 was 20/40 was 20/40 was 20/40 was 20/50-1 IOP 13 was 04/23 SLEx OD OS L/L wnl wnl C/S w/q w/q K clr clr AC d/q d/q I r/r, no NVI r/r, no NVI L PCIOL PCIOL AV synresis syneresis DFEx (today) RE D: 0.2, pink, nl, no rim thinning, peripapillary atrophy M: GA, no hemorrhage V: normal caliber, perfused P: flat LE D: pink, nl, no rim thinning, peripapillary atrophy M: nasal JALYN, no heme centrally no heme V: normal caliber, perfused P: flat INTRAVITREAL INJECTION LOG (OD) RIGHT EYE #Wks Date Med. # Response (+/-/=) --- n/a 02/18/20 TAMMY 1 5 03/22/20 TAMMY 2 improved fluid 11/01/20 TAMMY 3 New paracentral SUBRETINAL HEMORRHAGE 6 12/13/20 TAMMY 4 4 01/10/21 TAMMY 5 stable subretinal hemorrhage 4 02/07/21 TAMMY 6 persistent trace hemorrhage 5 03/14/21 TAMMY 7 persistent trace hemorrhage 5 04/18/21 n/a no hemorrhage 05/23/21 n/a no hemorrhage/exudation 3 mo 06/20/21 n/a no hemorrhage/exudation 4 mo 07/25/21 n/a 8 not active, maintenance INTRAVITREAL INJECTION LOG (OS) LEFT EYE #Wks Date Med. # Response (+/-/=) --- Injections since 201404/18/21 n/a no fluid, no hemorrhage 5 mo 05/23/21 TAMMY 33 recurrent SRF, no hemorrhage 4 wk 06/20/21 n/a SRF resolved, no hemorrhage 9 wk 07/25/21 TAMMY 34 recurrent SRF 7 wk 09/12/21 TAMMY 35 resolved SRF 10wk 11/21/21 TAMMY tr recurrent SRF 9wk 01/23/22 TAMMY worsened SRF, tr IRF 6 03/06/22 TAMMY resolved fluid 7 04/24/22 TAMMY Poss very early recurrence of SRF 7 06/12/22 TAMMY possible tr SRF - stable to improved 7 08/07/22 TAMMY tr SRF stable 10 10/16/22 TAMMY tr SRF, increased? 9 12/18/22 TAMMY tr SRF stable 9 02/22/24 TAMMY tr SRF stable 12 05/21/23 TAMMY mildly increased SRF 10 07/30/23 TAMMY resolved CME 11 10/15/23 TAMMY stable mild CME IMAGING Fundus photos 04/18/21 OD RPE change vs prominent choroidal no kavon hemorrhage, +GA OS RPE changes, no hemorrhage, +GA OCT Mac 04/24/22 OD atrophic, no significant fluid OS: drusen, possible scant early fluid nasally OCT Mac 06/12/22 OD atrophic, dry OS: drusen, possible tr paracentral nasasl SRF OCT mac 08/07/22 OD GA OCT mac 12/18/22 OD GA, dry OS drusen, tr paracentral SRF -stable OCT Mac 02/26/23 OD: GA, dry OS: drusen, tr paracentral SRF-stable OCT mac 05/21/23 OD: GA, dry OS: drusen, increased SRF OCT mac 07/30/23 OD: GA, dry OS: drusen, improved SRF OCT mac 10/15/23 OD: GA, dry OS: broad PED, degenerative cysts and mild CME OCT mac 12/24/23 OD: GA, dry OS: broad PED, degenerative cysts, trace SRF OCT mac 03/10/24 OD: GA, dry OS: broad PED, degenerative cysts, trace SRF A/P #Wet AMD OU - +AG, +quit smoking ~1984, +AREDS ---OD--- - converted to wet with pinpoint hemorrhage 01/2020. Exudation resolved s/p TAMMY by 03/2020 and had been on PRN regimen, but then had repeat hemorrhage in 10/2020 and underwent series of TAMMY - Centrally with RPE changes vs prominent choroidal vessel - photos 04/18/21 to help document because it almost looks like hemorrhage on fundus exam but is not - GA limits vision, on PRN for hemorrhages or large changes - Stable, observe today ---OS--- - Treatment prior to 2014 - Previously dry up until 28 weeks, but recurred 11/27/18 - Recently with large worsening of fluid at 8 weeks in mid-2019 and late-2019 - Noted on 09/20/20 to have new sub-RPE and sub-retinal hemorrhage, resolved by 02/07/21. - TE 11w, still with mild SRF ->11w FYI, patient prefers proparacaine soaked qtip rather than subconj lido Do inferotemp so qtip can sit for 5 minutes Procedure: Intravitreal Eylea/aflibercept, LEFT eye (TAMMY OS) - Risks, benefits, and alternatives discussed - Topical proparacaine drops and lidocaine applied - Topical betadine instilled and allowed to dwell for 30 seconds. - Site marked with sterile syringe after which a subsequent drop of betadine placed just before injection - 0.05 mL Eylea injected at pars plana - Additional drop of betadine following injection - Vision at least CF - No complications. 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
--- OUTSIDE RECORDS SUMMARY | 2024-05-17 21:49 | XMS_ITS ---
Author Name [facility] [place] [facility] [place] Address [address] [place] [address] Care Team Providers Care C Application Developer Name Role Phone MEAGHAN QUINTEROS Primary Care [...] PART A Aug 12, 2001 PART A [id number] BARRINGTONJESUS BUTT PATIENT MEDICARE (WNR) MEDICARE (M) PART B Aug 12, 2001 PART B [id number] JESUS ABRAHAM PATIENT Selected Encounter This section includes the information on record at [place] for the Encounter. Date/Time Encounter Type Encounter Description Reason Pro vider Source Mar 13, 2024 10:39 AM Outpatient Encounter ADMIN PAT ACTIVTIES (MASNONCT) IHE Encounter Template Text not used by [place] Plan of Treatment: Future Appointments (+ 6 months) and Future Tests (+/- 45 days) The Plan of Treatment section includes future care activities for the patient from all [facility] treatmentfacilities. This section includes future appointments and future orders which are active, pending or scheduled. Future Appointments This section includes appointments that were scheduled to occur 6 months from the date of the Encounter, up to a maximum of 20 appointments. The data comes from all [place] treatment facilities. Appointment Date/Time Appointment Type Appointme nt Facility Name Apr 16, 2024 11:00 AM AMBULATORY - REHAB MEDICIN E [facility] May 15, 2024 11:00 AM AMBULATORY - SURGERY [facility] May 26, 2024 12:30 PM AMBULATORY - SURGERY [facility] Jul 02, 2024 02:30 PM AMBULATORY - MEDICINE [facility] Lab Results: +/- 30 days of the encounter This section includes the Chemistry and Hematology Lab Results on record with [place] for the patient. Radiology Reports and Pathology Reports are provided separately, in subsequent sections. Lab Results This section contains the Chemistry/Hematology Results that were resulted 30 days before or 30 daysafter the date of the Encounter. Date/Time Source Result Type Result - Unit Interpretation Reference Range Comment Feb 29, 2024 02:17 PM [facility] HGA1C Specimen Type: BLOOD No comment entered. Ordering Provider: SA SHARI QUINTEROS Report Released Date/Time: Feb 28, 2024 09:05 AM Reporting Lab: [facility] [address] [facility] [address] Performing Lab: [place] [id number] [address] HGA1C 7.6 H 4.0-6.0 Feb 29, 2024 02:17 PM [facility] VITAMIN D, 25-HYDROXY Specimen Type: SERUM No comment entered. Ordering Provider: SA SHARI QUINTEROS Report Released Date/Time: Feb 28, 2024 09:05 AM Reporting Lab: [address] [address] Performing Lab: [address] [address] VITAMIN D, 25-HYDROXY 36.6 ng/mL 30-96 Feb 29, 2024 02:17 PM [facility] FERRITIN Specimen Type: SERUM No comment entered. Ordering Provider: SA SHARI QUINTEROS Report Released Date/Time: Feb 28, 2024 09:05 AM Reporting Lab: [facility] [address] [address] Performing Lab: [facility] [address] [place] [phone] FERRITIN 227.48 ng/mL 22-275 Feb 29, 2024 02:17 PM [facility] B12 Specimen Type: SERUM No comment entered. Ordering Provider: SA SHARI QUINTEROS Report Released Date/Time: Feb 29, 2024 02:14 PM Reporting Lab: [address] [address] Performing Lab: [address] [address] B12 305 pg/mL 213-816 Feb 29, 2024 02:17 PM [facility] IRON/TIBC PROFILE Specimen Type: SERUM No comment entered. Ordering Provider: SA SHARI QUINTEROS Report Released Date/Time: Feb 28, 2024 09:05 AM Reporting Lab: [address] [address] Performing Lab: [address] [address] TIBC 251 ug/dL 250-450 TRANSFERRIN 201 mg/dL 163-344 IRON SATURATION 14 L 20-50 IRON 35 ug/dL L 65-175 Feb 29, 2024 02:17 PM [facility] RENAL PANEL Specimen Type: PLASMA Comment: No hemolysis noted. Ordering Provider: SA SHARI QUINTEROS Report Released Date/Time: Feb 28, 2024 09:05 AM Reporting Lab: [address] [address] Performing Lab: [address] [address] CREATININE 0.81 mg/dL 0.7-1.3 UREA NITROGEN 9.5 mg/dL 9.0-25.0 GLUCOSE 108 mg/dL H 72-99 SODIUM 135 meq/L L 136-145 POTASSIUM 4.4 meq/L 3.5-5 CHLORIDE 100 meq/L 98-107 CARBON DIOXIDE 24 meq/L 22-31 CALCIUM 9.2 mg/dL 8.4-10.4 PHOSPHOROUS 3.8 mg/dL 2.3-4.7 ALBUMIN 4.1 g/dL 3.4-5 EGFR (CKD-EPI 2020) 85.3 >60 Feb 29, 2024 02:17 PM [facility] CBC Specimen Type: BLOOD No comment entered. Ordering Provider: SA SHARI QUINTEROS Report Released Date/Time: Feb 28, 2024 09:05 AM Reporting Lab: [facility] [address] [facility] [address] Performing Lab: [facility] [address] [facility] [address] WBC 10.0 10*3/uL 3.6-11.2 RBC 4.36 10*6/uL [...] and tobacco- related health factors from the [place] facility where the Encounter took place. Current Smoking Status This section includes the most current smoking, or tobacco-related health factor, from the [place] facility where the Encounter took place. Date/Time Current Smoking Status Comment Dena ity Nov 23, 2023 11:30 AM VA-TOBACCO NEVER USED [facility] Tobacco Use History This section includes a history of the smoking, or tobacco-related health factors, that were collected on or before the date of the Encounter. The data comes from the [place] facility where the Encounter took place. Date/Time Smoking Status/Tobacco Use Comment F acility Nov 23, 2023 11:30 AM VA-TOBACCO NEVER USED [facility] Nov 23, 2023 11:30 AM VA-TOBACCO QUIT 15 YRS OR MORE [facility] Nov 14, 2023 01:18 AM ORYX ADMIT TOBACCO SCREEN NO [facility] Aug 04, 2022 11:30 AM VA-TOBACCO NEVER USED [facility] Mar 11, 2021 10:30 AM VA-TOBACCO FORMER USER [facility] Mar 11, 2021 10:30 AM VA-TOBACCO QUIT 15 YRS OR MORE [facility] Apr 19, 2018 09:07 AM VA-TOBACCO FORMER USER [facility] Apr 19, 2018 09:07 AM VA-TOBACCO QUIT 15 YRS OR MORE [facility] Jul 24, 2017 08:16 AM QUIT TOBACCO >7 YEARS AGO [facility] Apr 16, 2017 12:43 PM QUIT TOBACCO >7 YEARS AGO [facility] Feb 01, 2017 11:47 AM LIFETIME NON-USER OF TOBACCO [facility] Nov 15, 2016 09:00 AM QUIT TOBACCO >7 YEARS AGO [facility] September 11, 2016 06:27 PM QUIT TOBACCO >7 YEARS AGO [facility] Dec 09, 2015 10:17 AM QUIT TOBACCO >7 YEARS AGO [facility] Jan 05, 2015 08:22 AM CURRENT TOBACCO USER [facility] Jan 05, 2015 08:22 AM TOBACCO MEDS OFFER ED BUT DECLINED [facility] Mar 18, 2014 10:40 AM CURRENT TOBACCO USER [facility] Mar 18, 2014 10:40 AM TOBACCO MEDS OFFER ED BUT DECLINED [facility] Nov 04, 2013 09:40 AM CURRENT TOBACCO USER [facility] Nov 26, 2012 08:10 AM QUIT TOBACCO >7 YEARS AGO [facility] May 03, 2009 08:45 AM QUIT TOBACCO >7 YEARS AGO [facility] Jul 06, 2008 08:46 AM CURRENT TOBACCO USER [facility] Jul 25, 2007 12:30 PM QUIT TOBACCO >12 M O & <7 YRS AGO [facility] Jun 07, 2006 09:21 AM CURRENT TOBACCO USER [facility] Jun 07, 2006 09:21 [facility] Aug 25, 2005 11:01 AM CURRENT TOBACCO USER [facility] Aug 25, 2005 11:01 AM TOBACCO CONTEMPLATION STAGE [facility] Oct 25, 2004 10:18 AM CURRENT NON-TOBACC O USER-HX OF USE [facility] Oct 25, 2004 10:18 AM TOBACCO TERMINATION STAGE [facility] Aug 24, 2003 10:43 AM CURRENT NON-TOBACC O USER-HX OF USE [facility] Aug 24, 2003 10:43 AM TOBACCO TERMINATION STAGE [facility] Aug 05, 2002 09:55 AM CURRENT NON-TOBACC O USER-HX OF USE QUIT [facility] Apr 15, 2001 08:28 AM CURRENT NON-TOBACC O USER-HX OF USE quit in 1979 [facility] Advance Directives: All historical and current Section Date Range: From patient's date of to the date document was created. This section includes ALL of a patient's completed or amended [place] Advance and Rescinded Directives. The entries below indicate that a directive exists for the patient, but an actual copy is not included with this document. The data comes from all [place] facilities. Date Advance Directives Provider Source Oct 19, 2023 ADVANCE DIRECTIVE WANG MURILLO [facility] Dec 12, 2022 RESCINDED ADVANCE DIRECTIVE JITENDRA MEADOWS [facility] September 12, 2016 ADVANCE DIRECTIVE DISCUSSION YVETTE MEADOWS [facility] Radiology Reports: +/- 30 days of [...] the Encounter. The data comes from all [place] treatment facilities. Date/Time Radiology Report Provider Source Mar 08, 2024 01:10 PM US CAROTID BILATER AL: JESUS ABRAHAM [id number] -[id number] M Ex Date: MAR 08, 2024@13:10 Req Phys: MEAGHAN QUINTEROS Loc: COM CARE-STL REHAB PT (Req'g L Img Loc: HAL-ULTRASOUND Service: [address] [address] (Case [id number] COMPLETE) US CAROTID BILATERAL (US Detailed) CPT:82652 Reason for Study: TIA type symptoms evaluate for carotid stenosis Clinical History: Report Status: Verified Date Reported: MAR 10, 2024 Date Verified: MAR 10, 2024 Collar Packer E-Sig:/ES/AMBER HAMPTON Report: Case [id number]. Bilateral extracranial carotid ultrasound examination. Grayscale, spectral [...] carotid: No evidence of hemodynamically significant stenosis. Mynor Jaramillo MD (Geodetic Surveyor) I, Amber Hampton, have reviewed the images and report and concur with these findings. Primary Interpreting Staff: AMBER HAMPTON MD (Collar Packer) Primary Interpreting Resident: MYNOR JARAMILLO, Resident Physician /AMBER LYLE [facility] Encounter Notes: All associated encounter notes This section contains the clinical notes associated to the Encounter. Date/Time Encounter Note(s) Provider Source Mar 13, 2024 10:39 AM ADMINISTRATIVE NOT E: LOCAL TITLE: CONTACT NOTE STL STANDARD TITLE: ADMINISTRATIVE NOTE DATE OF NOTE: MAR 13, 2024@10:39 ENTRY DATE: MAR 13, 2024@10:39:57 AUTHOR: JON VALVERDE EXP COSIGNER: URGENCY: STATUS: COMPLETED CONTACT NOTE STL Has ADDENDA Veterans name and last 4 were used to verify identity Verified Veterans telephone #/Updated telephone number in the system REASON FOR CALL: Other: Reason for call: patient's granddaughter would like a call regarding test results for carotid artery /pennie VALVERDE AMSA Signed: 03/13/2024 10:40 Receipt Acknowledged By: 03/13/2024 11:35 /pennie DAWSON Registered Nurse 03/13/2024 ADDENDUM STATUS: COMPLETED RNCM called patient's grandaughter back and informed her PCP message:carotid ultrasound was negative. We have truly worked up everything for his vertigo, so continue physical therapy exercises and avoid falls. /pennie DAWSON Registered Nurse Signed: 03/13/2024 11:35 JON VALVERDE [facility]
--- OUTSIDE RECORDS SUMMARY | 2024-05-17 21:49 | XMS_ITS | Encounter Summary ---
Author Name [facility] [place] [facility] [place] Address [address] [place] [address] Care Team Providers Care Product Design Engineer Name Role Phone MEAGHAN QUINTEROS Primary Care [...] PART A Aug 12, 2001 PART A [id number] [phone] BARRINGTONJESUS BUTT PATIENT MEDICARE (WNR) MEDICARE (M) PART B Aug 12, 2001 PART B [id number] JESUS ABRAHAM PATIENT Selected Encounter This section includes the information on record at [place] for the Encounter. Date/Time Encounter Type Encounter Description Reason Pro vider Source Apr 29, 2024 10:27 AM Outpatient Encounter ADMIN PAT ACTIVTIES (MASNONCT) IHE Encounter Template Text not used by [place] Plan of Treatment: Future Appointments (+ 6 [...] 20 appointments. The data comes from all [place] treatment facilities. Appointment Date/Time Appointment Type Appointme nt Facility Name May 15, 2024 11:00 AM AMBULATORY - SURGERY [facility] Yohan [facility] May 26, 2024 12:30 PM AMBULATORY - SURGERY [facility] Yohan [facility] Jul 02, 2024 02:30 PM AMBULATORY - MEDICINE [facility] Social History: Smoking Status (Most current) and Tobacco Use (All prior to encounter date) This section includes the most current, and the historical, smoking and tobacco- related health factors from the [place] facility where the Encounter took place. Current Smoking Status This section includes the most current smoking, or tobacco-related health factor, from the [place] facility where the Encounter took place. Date/Time Current Smoking Status Comment Facil ity Nov 23, 2023 11:30 AM VA-TOBACCO FORMER USER [facility] Tobacco Use History This section includes a history of the smoking, or tobacco-related health factors, that were collected on or before the date of the Encounter. The data comes from the [place] facility where the Encounter took place. Date/Time Smoking Status/Tobacco Use Comment F acility Nov 23, 2023 11:30 AM VA-TOBACCO NEVER USED [facility] Nov 23, 2023 11:30 AM VA-TOBACCO QUIT 15 YRS OR MORE [facility] Nov 14, 2023 01:18 AM ORYX ADMIT TOBACCO SCREEN NO [facility] Aug 04, 2022 11:30 AM VA-TOBACCO NEVER USED [facility] Mar 11, 2021 10:30 AM VA-TOBACCO FORMER USER [facility] Mar 11, 2021 10:30 AM VA-TOBACCO QUIT 15 YRS OR MORE [facility] Apr 19, 2018 09:07 AM VA-TOBACCO FORMER USER [facility] Apr 19, 2018 09:07 AM VA-TOBACCO QUIT 15 YRS OR MORE [facility] Jul 24, 2017 08:16 AM QUIT TOBACCO >7 YEARS AGO [facility] Apr 16, 2017 12:43 PM QUIT TOBACCO >7 YEARS AGO [facility] Feb 01, 2017 11:47 AM LIFETIME NON-USER OF TOBACCO [facility] Nov 15, 2016 09:00 AM QUIT TOBACCO >7 YEARS AGO [facility] September 11, 2016 06:27 PM QUIT TOBACCO >7 YEARS AGO [facility] Dec 09, 2015 10:17 AM QUIT TOBACCO >7 YEARS AGO [facility] Jan 05, 2015 08:22 AM CURRENT TOBACCO USER [facility] Jan 05, 2015 08:22 AM TOBACCO MEDS OFFER ED BUT DECLINED [facility] Mar 18, 2014 10:40 AM CURRENT TOBACCO USER [facility] Mar 18, 2014 10:40 AM TOBACCO MEDS OFFER ED BUT DECLINED [facility] Nov 04, 2013 09:40 AM CURRENT TOBACCO USER [facility] Nov 26, 2012 08:10 AM QUIT TOBACCO >7 YEARS AGO [facility] May 03, 2009 08:45 AM QUIT TOBACCO >7 YEARS AGO [facility] Jul 06, 2008 08:46 AM CURRENT TOBACCO USER [facility] Jul 25, 2007 12:30 PM QUIT TOBACCO >12 M O & <7 YRS AGO [facility] Jun 07, 2006 09:21 AM CURRENT TOBACCO USER [facility] Jun 07, 2006 09:21 AM [facility] Aug 25, 2005 11:01 AM CURRENT TOBACCO USER [facility] Aug 25, 2005 11:01 AM TOBACCO CONTEMPLATION STAGE [facility] Oct 25, 2004 10:18 AM CURRENT NON-TOBACC O USER-HX OF USE [facility] Oct 25, 2004 10:18 AM TOBACCO TERMINATION STAGE [facility] Aug 24, 2003 10:43 AM CURRENT NON-TOBACC O USER-HX OF USE [facility] Aug 24, 2003 10:43 AM TOBACCO TERMINATION STAGE [facility] Aug 05, 2002 09:55 AM CURRENT NON-TOBACC O USER-HX OF USE QUIT [facility] Apr 15, 2001 08:28 AM CURRENT NON-TOBACC O USER-HX OF USE quit in 1979 [facility] Advance Directives: All historical and current Section Date Range: From patient's date of to the date document was created. This section includes ALL of a patient's completed or amended [place] Advance and Rescinded Directives. The entries below indicate that a directive exists for the patient, but an actual copy is not included with this document. The data comes from all [place] facilities. Date Advance Directives Provider Source Oct 19, 2023 ADVANCE DIRECTIVE LIDIAWANGBRIDGER KATHLEEN [facility] Dec 12, 2022 RESCINDED ADVANCE DIRECTIVE JITENDRA MEADOWS [facility] September 12, 2016 ADVANCE DIRECTIVE DISCUSSION YVETTE MEADOWS [facility] Encounter Notes: All associated encounter notes This section contains the clinical notes associated to the Encounter. Date/Time Encounter Note(s) Provider Source Apr 29, 2024 10:27 AM ADMINISTRATIVE NOT E: LOCAL TITLE: CONTACT NOTE ST STANDARD TITLE: ADMINISTRATIVE NOTE DATE OF NOTE: APR 29, 2024@10:27 ENTRY DATE: APR 29, 2024@10:27:03 AUTHOR: CHARLIE ROOT EXP COSIGNER: URGENCY: STATUS: COMPLETED Veterans name and last 4 were used to verify identity Verified Veterans telephone #/Updated telephone number in the system REASON FOR CALL: Other: Reason for call: FLACO RECEIVED A CALL FROM V[employer]ERANS GR[employer] DAUGHTER SHE HAS CONCERNS HE HAS BEEN FEELING ILL FOR THE PAST 3 WEEKS AND HE HAS A BAD COUGH ALONG WITH OTHER SYMPTOMS. HE LIVES IN A ASSISTED LIVING FACILITY AND WOULD LIKE TO GET ORDERS FOR A CHEST XRAY. OFFERED SALES DEMONSTRATOR TO ASSIST WITH THE CHRYSTAL PAYNEAN IS EXPERINCING; SHE AGREED /manuel/ CHARLIE ROOT ADVANCED RADIOLOGY INTERVENTIONAL PHYSICIAN Signed: 04/29/2024 10:32 CHARLIE ROOT [facility]
--- OUTSIDE RECORDS SUMMARY | 2024-05-17 21:49 | XMS_ITS | Encounter Summary ---
Author Name [facility] [place] Organization [place] Address [address] [place] [address] Care Team Providers Care Biodiesel Process Control Technician Name Role Phone MEAGHAN QUINTEROS Primary Care [...] Policy [place] MEDICARE (WNR) MEDICARE (M) PART B Aug 12, 2001 PART B [id number] JESUS ABRAHAM PATIENT MEDICARE (WNR) MEDICARE (M) PART A Aug 12, 2001 PART A [id number] JESUS ABRAHAM PATIENT Selected Encounter This section includes the information on record at [place] for the Encounter. Date/Time Encounter Type Encounter Description Reason Pro vider Source Apr 16, 2024 12:00 PM Outpatient Encounter GENERAL INTERNAL MEDICINE IHE Encounter Template Text not used by [place] Plan of Treatment: Future Appointments (+ 6 [...] 20 appointments. The data comes from all [place] treatment facilities. Appointment Date/Time Appointment Type Appointme nt Facility Name May 15, 2024 11:00 AM AMBULATORY - SURGERY [facility] Yohan [facility] May 26, 2024 12:30 PM AMBULATORY - SURGERY [facility] Yohan [facility] Jul 02, 2024 02:30 PM AMBULATORY - MEDICINE [facility] Social History: Smoking Status (Most current) and Tobacco Use (All prior to encounter date) This section includes the most current, and the historical, smoking and tobacco- related health factors from the [place] facility where the Encounter took place. Current Smoking Status This section includes the most current smoking, or tobacco-related health factor, from the [place] facility where the Encounter took place. Date/Time Current Smoking Status Comment Dena ity Nov 23, 2023 11:30 AM VA-TOBACCO NEVER USED [facility] Tobacco Use History This section includes a history of the smoking, or tobacco-related health factors, that were collected on or before the date of the Encounter. The data comes from the [place] facility where the Encounter took place. Date/Time Smoking Status/Tobacco Use Comment F acility Nov 23, 2023 11:30 AM VA-TOBACCO NEVER USED [facility] Nov 23, 2023 11:30 AM VA-TOBACCO QUIT 15 YRS OR MORE [facility] Nov 14, 2023 01:18 AM ORYX ADMIT TOBACCO SCREEN NO [facility] Aug 04, 2022 11:30 AM VA-TOBACCO NEVER USED [facility] Mar 11, 2021 10:30 AM VA-TOBACCO FORMER USER [facility] Mar 11, 2021 10:30 AM VA-TOBACCO QUIT 15 YRS OR MORE [facility] Apr 19, 2018 09:07 AM VA-TOBACCO FORMER USER [facility] Apr 19, 2018 09:07 AM VA-TOBACCO QUIT 15 YRS OR MORE [facility] Jul 24, 2017 08:16 AM QUIT TOBACCO >7 YEARS AGO [facility] Apr 16, 2017 12:43 PM QUIT TOBACCO >7 YEARS AGO [facility] Feb 01, 2017 11:47 AM LIFETIME NON-USER OF TOBACCO [facility] Nov 15, 2016 09:00 AM QUIT TOBACCO >7 YEARS AGO [facility] September 11, 2016 06:27 PM QUIT TOBACCO >7 YEARS AGO [facility] Dec 09, 2015 10:17 AM QUIT TOBACCO >7 YEARS AGO [facility] Jan 05, 2015 08:22 AM CURRENT TOBACCO USER [facility] Jan 05, 2015 08:22 AM TOBACCO MEDS OFFER ED BUT DECLINED [facility] Mar 18, 2014 10:40 AM CURRENT TOBACCO USER [facility] Mar 18, 2014 10:40 AM TOBACCO MEDS OFFER ED BUT DECLINED [facility] Nov 04, 2013 09:40 AM CURRENT TOBACCO USER [facility] Nov 26, 2012 08:10 AM QUIT TOBACCO >7 YEARS AGO [facility] May 03, 2009 08:45 AM QUIT TOBACCO >7 YEARS AGO [facility] Jul 06, 2008 08:46 AM CURRENT TOBACCO USER [facility] Jul 25, 2007 12:30 PM QUIT TOBACCO >12 M O & <7 YRS AGO [facility] Jun 07, 2006 09:21 AM CURRENT TOBACCO USER [facility] Jun 07, 2006 09:21 AM [facility] Aug 25, 2005 11:01 AM CURRENT TOBACCO USER [facility] Aug 25, 2005 11:01 AM TOBACCO CONTEMPLATION STAGE [facility] Oct 25, 2004 10:18 AM CURRENT NON-TOBACC O USER-HX OF USE [facility] Oct 25, 2004 10:18 AM TOBACCO TERMINATION STAGE [facility] Aug 24, 2003 10:43 AM CURRENT NON-TOBACC O USER-HX OF USE [facility] Aug 24, 2003 10:43 AM TOBACCO TERMINATION STAGE [facility] Aug 05, 2002 09:55 AM CURRENT NON-TOBACC O USER-HX OF USE QUIT [facility] Apr 15, 2001 08:28 AM CURRENT NON-TOBACC O USER-HX OF USE quit in 1979 [facility] Advance Directives: All historical and current Section Date Range: From patient's date of to the date document was created. This section includes ALL of a patient's completed or amended [place] Advance and Rescinded Directives. The entries below indicate that a directive exists for the patient, but an actual copy is not included with this document. The data comes from all [place] facilities. Date Advance Directives Provider Source Oct 19, 2023 ADVANCE DIRECTIVE LIDIAWANGBRIDGER KATHLEEN [facility] Dec 12, 2022 RESCINDED ADVANCE DIRECTIVE JITENDRA MEADOWS [facility] September 12, 2016 ADVANCE DIRECTIVE DISCUSSION YVETTE MEADOWS [facility] Encounter Notes: All associated encounter notes This section contains the clinical notes associated to the Encounter. Date/Time Encounter Note(s) Provider Source Apr 16, 2024 12:00 PM NONVA CONSULT: LOCAL TITLE: COMMUNITY CARE-CONSULT RESULT NOTE ST STANDARD TITLE: NONVA CONSULT DATE OF NOTE: APR 16, 2024@12:00 ENTRY DATE: APR 28, 2024@10:37:02 AUTHOR: KIRSTEN CHERRY EXP COSIGNER: URGENCY: STATUS: COMPLETED VistA Imaging - Scanned Document DOS 04.16.2024 [facility] SCANNED DOCUMENT SIGNATURE NOT REQUIRED Electronically Filed: 04/28/2024 by: KIRSTEN CHERRY APPRAISER SCANNER KIRSTEN CHERRY [facility]
--- OUTSIDE RECORDS SUMMARY | 2024-05-17 21:49 | XMS_ITS | Encounter Summary ---
Author Name [facility] [place] Organization [place] Address [address] [place] [address] Care Team Providers Care Vegetable Farm Manager Name Role Phone MEAGHAN QUINTEROS Primary Care [...] PART A Aug 12, 2001 PART A [id number] JESUS ABRAHAM PATIENT MEDICARE (WNR) MEDICARE (M) PART B Aug 12, 2001 PART B [id number] LEIGH JESUS PATIENT Selected Encounter This section includes the information on record at CT for the Encounter. Date/Time Encounter Type Encounter Description Reason Pro vider Source Mar 10, 2024 01:34 PM Outpatient Encounter EVENT (HISTORICAL) IHE Encounter Template Text not used by CT Plan of Treatment: Future Appointments (+ 6 [...] 20 appointments. The data comes from all CT treatment facilities. Appointment Date/Time Appointment Type Appointme nt Facility Name Apr 16, 2024 11:00 AM AMBULATORY - REHAB MEDICIN E [facility] May 15, 2024 11:00 AM AMBULATORY - SURGERY [facility] May 26, 2024 12:30 PM AMBULATORY - SURGERY [facility] Jul 02, 2024 02:30 PM AMBULATORY - MEDICINE [facility] Lab Results: +/- 30 days of the encounter This section includes the Chemistry and Hematology Lab Results on record with CT for the patient. Radiology Reports and Pathology Reports are provided separately, in subsequent sections. Lab Results This section contains the Chemistry/Hematology Results that were resulted 30 days before or 30 daysafter the date of the Encounter. Date/Time Source Result Type Result - Unit Interpretation Reference Range Comment Feb 29, 2024 02:17 PM [facility] HGA1C Specimen Type: BLOOD No comment entered. Ordering Provider: SA SHARI QUINTEROS Report Released Date/Time: Feb 28, 2024 09:05 AM Reporting Lab: [facility] [address] [facility] [address] Performing Lab: [address] [address] HGA1C 7.6 H 4.0-6.0 Feb 29, 2024 02:17 PM [facility] VITAMIN D, 25-HYDROXY Specimen Type: SERUM No comment entered. Ordering Provider: SA SHARI QUINTEROS Report Released Date/Time: Feb 28, 2024 09:05 AM Reporting Lab: [facility] [address] [facility] [address] Performing Lab: [place] [id number] [facility] [address] VITAMIN D, 25-HYDROXY 36.6 ng/mL 30-96 Feb 29, 2024 02:17 PM [facility] FERRITIN Specimen Type: SERUM No comment entered. Ordering Provider: SA SHARI QUINTEROS Report Released Date/Time: Feb 28, 2024 09:05 AM Reporting Lab: [facility] [address] [facility] [address] Performing Lab: [facility] [address] [facility] [address] FERRITIN 227.48 ng/mL 22-275 Feb 29, 2024 02:17 PM [facility] B12 Specimen Type: SERUM No comment entered. Ordering Provider: SA SHARI QUINTEROS Report Released Date/Time: Feb 29, 2024 02:14 PM Reporting Lab: [facility] [address] [facility] [address] Performing Lab: [address] [address] B12 305 pg/mL 213-816 Feb 29, 2024 02:17 PM [facility] IRON/TIBC PROFILE Specimen Type: SERUM No comment entered. Ordering Provider: SA SHARI QUINTEROS Report Released Date/Time: Feb 28, 2024 09:05 AM Reporting Lab: [address] [address] Performing Lab: [address] [address] TIBC 251 ug/dL 250-450 TRANSFERRIN 201 mg/dL 163-344 IRON SATURATION 14 L 20-50 IRON 35 ug/dL L 65-175 Feb 29, 2024 02:17 PM [facility] RENAL PANEL Specimen Type: PLASMA Comment: No hemolysis noted. Ordering Provider: SA SHARI QUINTEROS Report Released Date/Time: Feb 28, 2024 09:05 AM Reporting Lab: [address] [address] Performing Lab: [address] [address] CREATININE 0.81 mg/dL 0.7-1.3 UREA NITROGEN 9.5 mg/dL 9.0-25.0 GLUCOSE 108 mg/dL H 72-99 SODIUM 135 meq/L L 136-145 POTASSIUM 4.4 meq/L 3.5-5 CHLORIDE 100 meq/L 98-107 CARBON DIOXIDE 24 meq/L 22-31 CALCIUM 9.2 mg/dL 8.4-10.4 PHOSPHOROUS 3.8 mg/dL 2.3-4.7 ALBUMIN 4.1 g/dL 3.4-5 EGFR (CKD-EPI 2020) 85.3 >60 Feb 29, 2024 02:17 PM [facility] CBC Specimen Type: BLOOD No comment entered. Ordering Provider: SA SHARI QUINTEROS Report Released Date/Time: Feb 28, 2024 09:05 AM Reporting Lab: [facility] [address] [facility] [address] Performing Lab: [facility] [address] [facility] [address] WBC 10.0 10*3/uL 3.6-11.2 RBC 4.36 10*6/uL [...] and tobacco- related health factors from the CT facility where the Encounter took place. Current Smoking Status This section includes the most current smoking, or tobacco-related health factor, from the [place] facility where the Encounter took place. Date/Time Current Smoking Status Comment Dena ity Nov 23, 2023 11:30 AM VA-TOBACCO NEVER USED [facility] Tobacco Use History This section includes a history of the smoking, or tobacco-related health factors, that were collected on or before the date of the Encounter. The data comes from the [place] facility where the Encounter took place. Date/Time Smoking Status/Tobacco Use Comment F acility Nov 23, 2023 11:30 AM VA-TOBACCO NEVER USED [facility] Nov 23, 2023 11:30 AM VA-TOBACCO QUIT 15 YRS OR MORE [facility] Nov 14, 2023 01:18 AM ORYX ADMIT TOBACCO SCREEN NO [facility] Aug 04, 2022 11:30 AM VA-TOBACCO NEVER USED [facility] Mar 11, 2021 10:30 AM VA-TOBACCO FORMER USER [facility] Mar 11, 2021 10:30 AM VA-TOBACCO QUIT 15 YRS OR MORE [facility] Apr 19, 2018 09:07 AM VA-TOBACCO FORMER USER [facility] Apr 19, 2018 09:07 AM VA-TOBACCO QUIT 15 YRS OR MORE [facility] Jul 24, 2017 08:16 AM QUIT TOBACCO >7 YEARS AGO [facility] Apr 16, 2017 12:43 PM QUIT TOBACCO >7 YEARS AGO [facility] Feb 01, 2017 11:47 AM LIFETIME NON-USER OF TOBACCO [facility] Nov 15, 2016 09:00 AM QUIT TOBACCO >7 YEARS AGO [facility] September 11, 2016 06:27 PM QUIT TOBACCO >7 YEARS AGO [facility] Dec 09, 2015 10:17 AM QUIT TOBACCO >7 YEARS AGO [facility] Jan 05, 2015 08:22 AM CURRENT TOBACCO USER [facility] Jan 05, 2015 08:22 AM TOBACCO MEDS OFFER ED BUT DECLINED [facility] Mar 18, 2014 10:40 AM CURRENT TOBACCO USER [facility] Mar 18, 2014 10:40 AM TOBACCO MEDS OFFER ED BUT DECLINED [facility] Nov 04, 2013 09:40 AM CURRENT TOBACCO USER [facility] Nov 26, 2012 08:10 AM QUIT TOBACCO >7 YEARS AGO [facility] May 03, 2009 08:45 AM QUIT TOBACCO >7 YEARS AGO [facility] Jul 06, 2008 08:46 AM CURRENT TOBACCO USER [facility] Jul 25, 2007 12:30 PM QUIT TOBACCO >12 M O & <7 YRS AGO [facility] Jun 07, 2006 09:21 AM CURRENT TOBACCO USER [facility] Jun 07, 2006 09:21 AM TOBACCO OFFERRED [facility] Aug 25, 2005 11:01 AM CURRENT TOBACCO USER [facility] Aug 25, 2005 11:01 AM TOBACCO CONTEMPLATION STAGE [facility] Oct 25, 2004 10:18 AM CURRENT NON-TOBACC O USER-HX OF USE [facility] Oct 25, 2004 10:18 AM TOBACCO TERMINATION STAGE [facility] Aug 24, 2003 10:43 AM CURRENT NON-TOBACC O USER-HX OF USE [facility] Aug 24, 2003 10:43 AM TOBACCO TERMINATION STAGE [facility] Aug 05, 2002 09:55 AM CURRENT NON-TOBACC O USER-HX OF USE QUIT [facility] Apr 15, 2001 08:28 AM CURRENT NON-TOBACC O USER-HX OF USE quit in 1979 [facility] Advance Directives: All historical and current Section Date Range: From patient's date of to the date document was created. This section includes ALL of a patient's completed or amended [place] Advance and Rescinded Directives. The entries below indicate that a directive exists for the patient, but an actual copy is not included with this document. The data comes from all CT facilities. Date Advance Directives Provider Source Oct 19, 2023 ADVANCE DIRECTIVE WANG MURILLO [facility] Dec 12, 2022 RESCINDED ADVANCE DIRECTIVE JITENDRA MEADOWS [facility] September 12, 2016 ADVANCE DIRECTIVE DISCUSSION YVETTE MEADOWS [facility] Radiology Reports: +/- 30 days of [...] the Encounter. The data comes from all CT treatment facilities. Date/Time Radiology Report Provider Source Mar 08, 2024 01:10 PM US CAROTID BILATER AL: JESUS ABRAHAM [id number] -1935 M Ex Date: MAR 08, 2024@13:10 Req Phys: MEAGHAN QUINTEROS Loc: COM CARE-STL REHAB PT (Req'g L Img Loc: HAL-ULTRASOUND Service: [address] [address] (Case [id number] COMPLETE) US CAROTID BILATERAL (US Detailed) CPT:52766 Reason for Study: TIA type symptoms evaluate for carotid stenosis Clinical History: Report Status: Verified Date Reported: MAR 10, 2024 Date Verified: MAR 10, 2024 Systems Analyst Engineer E-Sig:/ES/AMBER HAMPTON Report: Case [id number]. Bilateral extracranial carotid ultrasound examination. Grayscale, spectral [...] of hemodynamically significant stenosis. Mynor Jaramillo MD (Electronic Equipment Maint Tech) IAmber, have reviewed the images and report and concur with these findings. Primary Interpreting Staff: AMBER HAMPTON MD (Systems Analyst Engineer) Primary Interpreting Resident: MYNOR JARAMILLO, Resident Physician /AMBER LYLE [facility]
--- OUTSIDE RECORDS SUMMARY | 2024-05-17 21:49 | XMS_ITS | Encounter Summary ---
Author Name [facility] [facility] [place] Organization [facility] [place] Address [address] [place] [address] Care Team Providers Care Receiving Tank Operator Name Role Phone MEAGHAN QUINTEROS Primary Care [...] PART A Aug 12, 2001 PART A [id number] [place]T PATIENT MEDICARE (WNR) MEDICARE (M) PART B Aug 12, 2001 PART B [id number] [phone] JESUS ABRAHAM PATIENT Selected Encounter This section includes the information on record at [place] for the Encounter. Date/Time Encounter Type Encounter Description Reason Pro vider Source Mar 21, 2024 12:34 PM Outpatient Encounter ADMIN PAT ACTIVTIES (MASNONCT) IHE Encounter Template Text not used by [place] Plan of Treatment: Future Appointments (+ 6 [...] 20 appointments. The data comes from all [place] treatment facilities. Appointment Date/Time Appointment Type Appointme nt Facility Name Apr 16, 2024 11:00 AM AMBULATORY - REHAB MEDICIN E [facility] May 15, 2024 11:00 AM AMBULATORY - SURGERY [facility] May 26, 2024 12:30 PM AMBULATORY - SURGERY [facility] Jul 02, 2024 02:30 PM AMBULATORY - MEDICINE [facility] Lab Results: +/- 30 days of the encounter This section includes the Chemistry and Hematology Lab Results on record with [place] for the patient. Radiology Reports and Pathology Reports are provided separately, in subsequent sections. Lab Results This section contains the Chemistry/Hematology Results that were resulted 30 days before or 30 daysafter the date of the Encounter. Date/Time Source Result Type Result - Unit Interpretation Reference Range Comment Feb 29, 2024 02:[address] [facility] HGA1C Specimen Type: BLOOD No comment entered. Ordering Provider: SA SHARI QUINTEROS Report Released Date/Time: Feb 28, 2024 09:05 AM Reporting Lab: [facility] [address] [facility] [address] Performing Lab: [place] [address] [facility] [address] HGA1C 7.6 H 4.0-6.0 Feb 29, 2024 02:[address] [facility] VITAMIN D, 25-HYDROXY Specimen Type: SERUM No comment entered. Ordering Provider: SA SHARI QUINTEROS Report Released Date/Time: Feb 28, 2024 09:05 AM Reporting Lab: [address] [address] Performing Lab: [address] [address] VITAMIN D, 25-HYDROXY 36.6 ng/mL 30-96 Feb 29, 2024 02:[address] [facility] FERRITIN Specimen Type: SERUM No comment entered. Ordering Provider: SA SHARI QUINTEROS Report Released Date/Time: Feb 28, 2024 09:05 AM Reporting Lab: [facility] [address] [facility] [address] Performing Lab: [facility] [address] [place] [address] FERRITIN 227.48 ng/mL 22-275 Feb 29, 2024 02:[address] [facility] B12 Specimen Type: SERUM No comment entered. Ordering Provider: SA SHARI QUINTEROS Report Released Date/Time: Feb 29, 2024 02:14 PM Reporting Lab: [address] [address] Performing Lab: [address] [address] B12 305 pg/mL 213-816 Feb 29, 2024 02:[address] [facility] IRON/TIBC PROFILE Specimen Type: SERUM No comment entered. Ordering Provider: SA SHARI QUINTEROS Report Released Date/Time: Feb 28, 2024 09:05 AM Reporting Lab: [address] [address] Performing Lab: [address] [address] TIBC 251 ug/dL 250-450 TRANSFERRIN 201 mg/dL 163-344 IRON SATURATION 14 L 20-50 IRON 35 ug/dL L 65-175 Feb 29, 2024 02:[address] [facility] RENAL PANEL Specimen Type: PLASMA Comment: No hemolysis noted. Ordering Provider: SA SHARI QUINTEROS Report Released Date/Time: Feb 28, 2024 09:05 AM Reporting Lab: [address] [address] Performing Lab: [address] [address] CREATININE 0.81 mg/dL 0.7-1.3 UREA NITROGEN 9.5 mg/dL 9.0-25.0 GLUCOSE 108 mg/dL H 72-99 SODIUM 135 meq/L L 136-145 POTASSIUM 4.4 meq/L 3.5-5 CHLORIDE 100 meq/L 98-107 CARBON DIOXIDE 24 meq/L 22-31 CALCIUM 9.2 mg/dL 8.4-10.4 PHOSPHOROUS 3.8 mg/dL 2.3-4.7 ALBUMIN 4.1 g/dL 3.4-5 EGFR (CKD-EPI 2020) 85.3 >60 Feb 29, 2024 02:17 PM [facility] CBC Specimen Type: BLOOD No comment entered. Ordering Provider: SA SHARI QUINTEROS Report Released Date/Time: Feb 28, 2024 09:05 AM Reporting Lab: [facility] [address] [facility] [address] Performing Lab: [facility] [address] [facility] [address] WBC 10.0 10*3/uL 3.6-11.2 RBC 4.36 10*6/uL [...] and tobacco- related health factors from the [place] facility where the Encounter took place. Current Smoking Status This section includes the most current smoking, or tobacco-related health factor, from the [place] facility where the Encounter took place. Date/Time Current Smoking Status Comment Dena ity Nov 23, 2023 11:30 AM VA-TOBACCO NEVER USED [facility] Tobacco Use History This section includes a history of the smoking, or tobacco-related health factors, that were collected on or before the date of the Encounter. The data comes from the [place] facility where the Encounter took place. Date/Time Smoking Status/Tobacco Use Comment F acility Nov 23, 2023 11:30 AM VA-TOBACCO NEVER USED [facility] Nov 23, 2023 11:30 AM VA-TOBACCO QUIT [address] [facility] Nov 14, 2023 01:18 AM ORYX ADMIT TOBACCO SCREEN NO [facility] Aug 04, 2022 11:30 AM VA-TOBACCO NEVER USED [facility] Mar 11, 2021 10:30 AM VA-TOBACCO FORMER USER [facility] Mar 11, 2021 10:30 AM VA-TOBACCO QUIT [address] [facility] Apr 19, 2018 09:07 AM VA-TOBACCO FORMER USER [facility] Apr 19, 2018 09:07 AM VA-TOBACCO QUIT [address] [facility] Jul 24, 2017 08:16 AM QUIT TOBACCO >[address] [facility] Apr 16, 2017 12:43 PM QUIT TOBACCO >[address] [facility] Feb 01, 2017 11:47 AM LIFETIME NON-USER OF TOBACCO [facility] Nov 15, 2016 09:00 AM QUIT TOBACCO >[address] [facility] September 11, 2016 06:27 PM QUIT TOBACCO >[address] [facility] Dec 09, 2015 10:17 AM QUIT TOBACCO >[address] [facility] Jan 05, 2015 08:22 AM CURRENT TOBACCO USER [facility] Jan 05, 2015 08:22 AM TOBACCO MEDS OFFER ED BUT DECLINED [facility] Mar 18, 2014 10:40 AM CURRENT TOBACCO USER [facility] Mar 18, 2014 10:40 AM TOBACCO MEDS OFFER ED BUT DECLINED [facility] Nov 04, 2013 09:40 AM CURRENT TOBACCO USER [facility] Nov 26, 2012 08:10 AM QUIT TOBACCO >[address] [facility] May 03, 2009 08:45 AM QUIT TOBACCO >[address] [facility] Jul 06, 2008 08:46 AM CURRENT TOBACCO USER [facility] Jul 25, 2007 12:30 PM QUIT TOBACCO >12 M O & <[address] [facility] Jun 07, 2006 09:21 AM CURRENT TOBACCO USER [facility] Jun 07, 2006 09:21 [facility] Aug 25, 2005 11:01 AM CURRENT TOBACCO USER [facility] Aug 25, 2005 11:01 [address]CO CONTEMPLATION STAGE [facility] Oct 25, 2004 10:18 AM CURRENT NON-TOBACC O USER-HX OF USE [facility] Oct 25, 2004 10:[address] [facility] Aug 24, 2003 10:43 AM CURRENT NON-TOBACC O USER-HX OF USE [facility] Aug 24, 2003 10:43 AM TOBACCO TERMINATION STAGE [facility] Aug 05, 2002 09:55 AM CURRENT NON-TOBACC O USER-HX OF USE QUIT [facility] Apr 15, 2001 08:28 AM CURRENT NON-TOBACC O USER-HX OF USE quit in 1979 [facility] Advance Directives: All historical and current Section Date Range: From patient's date of to the date document was created. This section includes ALL of a patient's completed or amended [place] Advance and Rescinded Directives. The entries below indicate that a directive exists for the patient, but an actual copy is not included with this document. The data comes from all [place] facilities. Date Advance Directives Provider Source Oct 19, 2023 ADVANCE DIRECTIVE WANG MURILLO [facility] Dec 12, 2022 RESCINDED ADVANCE DIRECTIVE JITENDRA MEADOWS [facility] September 12, 2016 ADVANCE DIRECTIVE DISCUSSION YVETTE MEADOWS [facility] Radiology Reports: +/- 30 days [...] the Encounter. The data comes from all [place] treatment facilities. Date/Time Radiology Report Provider Source Mar 08, 2024 01:10 PM US CAROTID BILATER AL: JESUS ABRAHAM [id number] -1935 M Ex Date: MAR 08, 2024@13:10 Req Phys: MEAGHAN QUINTEROS Loc: COM CARE-STL REHAB PT (Req'g L Img Loc: HAL-ULTRASOUND Service: [address] [address] (Case [id number] COMPLETE) US CAROTID BILATERAL (US Detailed) CPT:88980 Reason for Study: TIA type symptoms evaluate for carotid stenosis Clinical History: Report Status: Verified Date Reported: MAR 10, 2024 Date Verified: MAR 10, 2024 Nail Artist E-Sig:/ES/AMBER HAMPTON Report: Case [id number]. Bilateral extracranial carotid ultrasound examination. Grayscale, spectral [...] of hemodynamically significant stenosis. Mynor Jaramillo MD (Mixing And Dispensing Supervisor) I, Amber Hampton, have reviewed the images and report and concur with these findings. Primary Interpreting Staff: AMBER HAMPTON MD (Nail Artist) Primary Interpreting Resident: MYNOR JARAMILLO, Physician /AMBER LYLE [facility] Encounter Notes: All associated encounter notes This section contains the clinical notes associated to the Encounter. Date/Time Encounter Note(s) Provider Source Mar 21, 2024 12:34 PM ADMINISTRATIVE NOT E: LOCAL TITLE: SCHEDULING NOTE [facility] STANDARD TITLE: ADMINISTRATIVE NOTE DATE OF NOTE: MAR 21, 2024@12:34 ENTRY DATE: MAR 21, 2024@12:34:05 AUTHOR: SIAM DE [place] EXP COSIGNER: URGENCY: STATUS: COMPLETED Additional comments: RECEIVED 1 PG FAX FROM [facility] ADDITIONAL RESULTS FROM SCHEDULING ATTEMPTS: /manuel/ SIMA DE LA TORRE ADVANCED FAX MACHINE OPERATOR Signed: 03/21/2024 12:34 Receipt Acknowledged By: 03/21/2024 12:49 /manuel/ AGUEDA DAWSON Registered Nurse SIMA DE LA TORRE [facility]
--- OUTSIDE RECORDS SUMMARY | 2024-05-17 21:49 | XMS_ITS | Encounter Summary ---
Author Name [facility] [place] [facility] [place] Address [address] [place] [address] Care Team Providers Care Control Manager Name Role Phone MEAGHAN QUINTEROS Primary [...] PART B Aug 12, 2001 PART B [id number] JESUS ABRAHAM PATIENT MEDICARE (WNR) MEDICARE (M) PART A Aug 12, 2001 PART A [id number] [phone] TOBIDANAYFILOMENA JESUS PATIENT Selected Encounter This section includes the information on record at [place] for the Encounter. 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 Date/Time Primary/Secondary Diagnosis Diagnosis Name Provider Source Mar 10, 2024 12:49 PM PRIMARY Exudative age-rel mclr degn, right eye, stage unspecified DIANE TANNER [facility] Plan of Treatment: Future Appointments (+ 6 months) and Future Tests (+/- 45 days) The Plan of Treatment section includes future care activities for the patient from all [place] treatmentfacilities. This section includes future appointments and future orders which are active, pending or scheduled. Future Appointments This section includes appointments that were scheduled to occur 6 months from the date of the Encounter, up to a maximum of 20 appointments. The data comes from all [place] treatment facilities. Appointment Date/Time Appointment Type Appointme nt Facility Name Apr 16, 2024 11:00 AM AMBULATORY - REHAB MEDICIN E [facility] May 15, 2024 11:00 AM AMBULATORY - SURGERY [facility] May 26, 2024 12:30 PM AMBULATORY - SURGERY [facility] Jul 02, 2024 02:30 PM AMBULATORY - MEDICINE [facility] Lab Results: +/- 30 days of the [...] Range Comment Feb 29, 2024 02:17 PM [facility] HGA1C Specimen Type: BLOOD No comment entered. Ordering Provider: SA SHARI QUINTEROS Report Released Date/Time: Feb 28, 2024 09:05 AM Reporting Lab: [facility] [address] [facility] [address] Performing Lab: [place] [id number] [place] [address] HGA1C 7.6 H 4.0-6.0 Feb 29, 2024 02:17 PM [facility] VITAMIN D, 25-HYDROXY Specimen Type: SERUM No comment entered. Ordering Provider: SA SHARI QUINTEROS Report Released Date/Time: Feb 28, 2024 09:05 AM Reporting Lab: [place] [id number] [facility] [address] Performing Lab: [facility] [address] [facility] [address] VITAMIN D, 25-HYDROXY 36.6 ng/mL 30-96 Feb 29, 2024 02:17 PM [facility] FERRITIN Specimen Type: SERUM No comment entered. Ordering Provider: SA SHARI QUINTEROS Report Released Date/Time: Feb 28, 2024 09:05 AM Reporting Lab: [facility] [address] [facility] [address] Performing Lab: [address] [address] FERRITIN 227.48 ng/mL 22-275 Feb 29, 2024 02:17 PM [facility] IRON/TIBC PROFILE Specimen Type: SERUM No comment entered. Ordering Provider: SA SHARI QUINTEROS Report Released Date/Time: Feb 28, 2024 09:05 AM Reporting Lab: [place] [address] [facility] [address] Performing Lab: [address] [address] TIBC 251 ug/dL 250-450 TRANSFERRIN 201 mg/dL 163-344 IRON SATURATION 14 L 20-50 IRON 35 ug/dL L 65-175 Feb 29, 2024 02:17 PM [facility] B12 Specimen Type: SERUM No comment entered. Ordering Provider: SA SHARI QUINTEROS Report Released Date/Time: Feb 29, 2024 02:14 PM Reporting Lab: [address] [address] Performing Lab: [address] [address] B12 305 pg/mL 213-816 Feb 29, 2024 02:17 PM [facility] RENAL PANEL Specimen Type: PLASMA Comment: No hemolysis noted. Ordering Provider: SA SHARI QUINTEROS Report Released Date/Time: Feb 28, 2024 09:05 AM Reporting Lab: [address] [address] Performing Lab: [facility] [address] [facility] [address] CREATININE 0.81 mg/dL 0.7-1.3 UREA NITROGEN 9.5 mg/dL 9.0-25.0 GLUCOSE 108 mg/dL H 72-99 SODIUM 135 meq/L L 136-145 POTASSIUM 4.4 meq/L 3.5-5 CHLORIDE 100 meq/L 98-107 CARBON DIOXIDE 24 meq/L 22-31 CALCIUM 9.2 mg/dL 8.4-10.4 PHOSPHOROUS 3.8 mg/dL 2.3-4.7 ALBUMIN 4.1 g/dL 3.4-5 EGFR (CKD-EPI 2020) 85.3 >60 Feb 29, 2024 02:17 PM [facility] CBC Specimen Type: BLOOD No comment entered. Ordering Provider: SA SHARI QUINTEROS Report Released Date/Time: Feb 28, 2024 09:05 AM Reporting Lab: [facility] [address] [facility] [address] Performing Lab: [facility] [address] [place] [address] WBC 10.0 10*3/uL 3.6-11.2 RBC 4.36 10*6/uL [...] and tobacco- related health factors from the [place] facility where the Encounter took place. Current Smoking Status This section includes the most current smoking, or tobacco-related health factor, from the [place] facility where the Encounter took place. Date/Time Current Smoking Status Comment Facil ity Nov 23, 2023 11:30 AM VA-TOBACCO NEVER USED [facility] Tobacco Use History This section includes a history of the smoking, or tobacco-related health factors, that were collected on or before the date of the Encounter. The data comes from the [place] facility where the Encounter took place. Date/Time Smoking Status/Tobacco Use Comment F acbailey Nov 23, 2023 11:30 AM VA-TOBACCO NEVER USED [facility] Nov 23, 2023 11:30 AM VA-TOBACCO QUIT 15 YRS OR MORE [facility] Nov 14, 2023 01:18 AM ORYX ADMIT TOBACCO SCREEN NO [facility] Aug 04, 2022 11:30 AM VA-TOBACCO NEVER USED [facility] Mar 11, 2021 10:30 AM VA-TOBACCO FORMER USER [facility] Mar 11, 2021 10:30 AM VA-TOBACCO QUIT 15 YRS OR MORE [facility] Apr 19, 2018 09:07 AM VA-TOBACCO FORMER USER [facility] Apr 19, 2018 09:07 AM VA-TOBACCO QUIT 15 YRS OR MORE [facility] Jul 24, 2017 08:16 AM QUIT TOBACCO >7 YEARS AGO [facility] Apr 16, 2017 12:43 PM QUIT TOBACCO >7 YEARS AGO [facility] Feb 01, 2017 11:47 AM LIFETIME NON-USER OF TOBACCO [facility] Nov 15, 2016 09:00 AM QUIT TOBACCO >7 YEARS AGO [facility] September 11, 2016 06:27 PM QUIT TOBACCO >7 YEARS AGO [facility] Dec 09, 2015 10:17 AM QUIT TOBACCO >7 YEARS AGO [facility] Jan 05, 2015 08:22 AM CURRENT TOBACCO USER [facility] Jan 05, 2015 08:22 AM TOBACCO MEDS OFFER ED BUT DECLINED [facility] Mar 18, 2014 10:40 AM CURRENT TOBACCO USER [facility] Mar 18, 2014 10:40 AM TOBACCO MEDS OFFER ED BUT DECLINED [facility] Nov 04, 2013 09:40 AM CURRENT TOBACCO USER [facility] Nov 26, 2012 08:10 AM QUIT TOBACCO >7 YEARS AGO [facility] May 03, 2009 08:45 AM QUIT TOBACCO >7 YEARS AGO [facility] Jul 06, 2008 08:46 AM CURRENT TOBACCO USER [facility] Jul 25, 2007 12:30 PM QUIT TOBACCO >12 M O & <7 YRS AGO [facility] Jun 07, 2006 09:21 AM CURRENT TOBACCO USER [facility] Jun 07, 2006 09:21 [facility] Aug 25, 2005 11:01 AM CURRENT TOBACCO USER [facility] Aug 25, 2005 11:01 AM TOBACCO CONTEMPLATION STAGE [facility] Oct 25, 2004 10:18 AM CURRENT NON-TOBACC O USER-HX OF USE [facility] Oct 25, 2004 10:18 AM TOBACCO TERMINATION STAGE [facility] Aug 24, 2003 10:43 AM CURRENT NON-TOBACC O USER-HX OF USE [facility] Aug 24, 2003 10:43 AM TOBACCO TERMINATION STAGE [facility] Aug 05, 2002 09:55 AM CURRENT NON-TOBACC O USER-HX OF USE QUIT [facility] Apr 15, 2001 08:28 AM CURRENT NON-TOBACC O USER-HX OF USE quit in 1979 [facility] Advance Directives: All historical and current Section Date Range: From patient's date of to the date document was created. This section includes ALL of a patient's completed or amended [place] Advance and Rescinded Directives. The entries below indicate that a directive exists for the patient, but an actual copy is not included with this document. The data comes from all [place] facilities. Date Advance Directives Provider Source Oct 19, 2023 ADVANCE DIRECTIVE LIDIAWANG [facility] Dec 12, 2022 RESCINDED ADVANCE DIRECTIVE JITENDRA MEADOWS [facility] September 12, 2016 ADVANCE DIRECTIVE DISCUSSION YVETTE MEADOWS [facility] Radiology Reports: +/- 30 days of [...] the Encounter. The data comes from all [place] treatment facilities. Date/Time Radiology Report Provider Source Mar 08, 2024 01:10 PM US CAROTID BILATER AL: JESUS ABRAHAM [id number] -[phone] M Ex Date: MAR 08, 2024@13:10 Req Phys: MEAGHAN QUINTEROS Loc: COM CARE-[facility] REHAB PT (Req'g L Img Loc: -ULTRASOUND Service: [address] [address] (Case [id number] COMPLETE) US CAROTID BILATERAL (US Detailed) CPT:70890 Reason for Study: TIA type symptoms evaluate for carotid stenosis Clinical History: Report Status: Verified Date Reported: MAR 10, 2024 Date Verified: MAR 10, 2024 Fence Installer Foreman E-Sig:/ES/AMBER HAMPTON Report: Case [id number]. Bilateral extracranial carotid ultrasound examination. Grayscale, spectral [...] of hemodynamically significant stenosis. Mynor Jaramillo MD (Concrete Gun Operator) I, Amber Hampton, have reviewed the images and report and concur with these findings. Primary Interpreting Staff: AMBER HAMPTON MD (Fence Installer Foreman) Primary Interpreting Resident: MYNOR JARAMILLO Resident Physician /AMBER LYLE [facility] Encounter Notes: All associated encounter notes This section contains the clinical notes associated to the Encounter. Date/Time Encounter Note(s) Provider Source Mar 10, 2024 12:48 PM OPHTHALMOLOGY NOTE : LOCAL TITLE: OPHTHALMOLOGY NOTE [facility] STANDARD TITLE: OPHTHALMOLOGY NOTE DATE OF NOTE: MAR 10, 2024@12:48 ENTRY DATE: MAR 10, 2024@12:48:37 AUTHOR: DIANE TANNER EXP COSIGNER: URGENCY: STATUS: COMPLETED OCT Macula OU Complete. Results in Forum for provider review. Opthalmic Medications Administered OU @ [address]: OD = 13 OS = 14 /manuel/ DIANE TANNER [facility]ERGL[facility] LUGGAGE MOLDER,OPHTHALMOLOGY Signed: 03/10/2024 12:52 DIANE TANNER [facility]
--- OUTSIDE RECORDS SUMMARY | 2024-05-17 21:49 | XMS_ITS | Encounter Summary ---
Author Name [facility] [place] [facility] [place] Address [address] [place] [address] Care Team Providers Care Truck Sales Representative Name Role Phone CHARLINE QUINTEROS Primary Care Provider Unavailabl e Insurance [...] PART A Aug 12, 2001 PART A [id number] JEUSS ABRAHAM PATIENT MEDICARE (WNR) MEDICARE (M) PART B Aug 12, 2001 PART B [id number] JESUS ABRAHAM PATIENT Selected Encounter This section includes the information on record at [place] for the Encounter. Date/Time Encounter Type Encounter Description Reason Provider Source Feb 29, 2024 01:30 PM OFFICE O/P EST MOD 30 MIN PRIMARY CARE/MEDICINE ICD-10-CM M17.12 Unilateral primary osteoarthritis, left knee KIBLINGER,CHARLINE IHE Encounter Template Text not used by [place] Assessments - Encounter Diagnoses This section includes the primary and secondary diagnoses documented for the Encounter. Date/Time Primary/Secondary Diagnosis Diagnosis Name Provider Source Feb 29, 2024 04:23 PM PRIMARY Unilateral primary osteoarthritis, left knee KIBLINGER,CHARLINE [facility] Feb 29, 2024 04:23 PM SECONDARY Encounter for immunization BITA IRVIN [facility] Feb 29, 2024 04:23 PM SECONDARY Hyperlipidemia, unspecified [facility] Feb 29, 2024 04:23 PM SECONDARY Osteoarthritis of knee, unspecified [facility] Feb 29, 2024 04:23 PM SECONDARY Unspecified macular degeneration [facility] Plan of Treatment: Future Appointments (+ 6 months) and Future Tests (+/- 45 days) The Plan of Treatment section includes future care activities [facility] the [facility] [place] [facility] This section includes future appointments and future orders which are active, pending or scheduled. Future Appointments This section includes appointments that were scheduled to occur 6 months from the date of the Encounter, up to a maximum of 20 appointments. The data comes from all [place] treatment facilities. Appointment Date/Time Appointment Type Appointme nt Facility Name Mar 03, 2024 09:15 AM AMBULATORY - MEDICINE [facility] Mar 08, 2024 01:30 PM AMBULATORY - MEDICINE [facility] Mar 10, 2024 12:45 PM AMBULATORY - SURGERY [facility] Apr 16, 2024 11:00 AM AMBULATORY - REHAB MEDICIN E [facility] May 15, 2024 11:00 AM AMBULATORY - SURGERY [facility] May 26, 2024 12:30 PM AMBULATORY - SURGERY [facility] Jul 02, 2024 02:30 PM AMBULATORY - MEDICINE [facility] Lab Results: +/- 30 days of the encounter This section includes the Chemistry and Hematology Lab Results on record with [place] for the patient. Radiology Reports and Pathology Reports are provided separately, in subsequent sections. Lab Results This section contains the Chemistry/Hematology Results that were resulted 30 days before or 30 daysafter the date of the Encounter. Date/Time Source Result Type Result - Unit Interpretation Reference Range Comment Feb 29, 2024 02:17 PM [facility] HGA1C Specimen Type: BLOOD No comment entered. Ordering Provider: SA SHARI QUINTEROS Report Released Date/Time: Feb 28, 2024 09:05 AM Reporting Lab: [facility] [address] [phone] Performing Lab: [facility] [address] [address] HGA1C 7.6 H 4.0-6.0 Feb 29, 2024 02:17 PM [facility] VITAMIN D, 25-HYDROXY Specimen Type: SERUM No comment entered. Ordering Provider: SA SHARI QUINTEROS Report Released Date/Time: Feb 28, 2024 09:05 AM Reporting Lab: [facility] [address] [address] Performing Lab: [address] [address] VITAMIN D, 25-HYDROXY 36.6 ng/mL 30-96 Feb 29, 2024 02:17 PM [facility] FERRITIN Specimen Type: SERUM No comment entered. Ordering Provider: SA SHARI QUINTEROS Report Released Date/Time: Feb 28, 2024 09:05 AM Reporting Lab: [facility] [address] [address] Performing Lab: [facility] [address] [place] [phone] FERRITIN 227.48 ng/mL 22-275 Feb 29, 2024 02:17 PM [facility] B12 Specimen Type: SERUM No comment entered. Ordering Provider: SA SHARI UQINTEROS Report Released Date/Time: Feb 29, 2024 02:14 PM Reporting Lab: [facility] [address] [address] Performing Lab: [facility] [address] [address] B12 305 pg/mL 213-816 Feb 29, 2024 02:17 PM [facility] IRON/TIBC PROFILE Specimen Type: SERUM No comment entered. Ordering Provider: SA SHARI QUINTEROS Report Released Date/Time: Feb 28, 2024 09:05 AM Reporting Lab: [place] [id number] [address] Performing Lab: [address] [address] TIBC 251 ug/dL 250-450 TRANSFERRIN 201 mg/dL 163-344 IRON SATURATION 14 L 20-50 IRON 35 ug/dL L 65-175 Feb 29, 2024 02:17 PM [facility] RENAL PANEL Specimen Type: PLASMA Comment: No hemolysis noted. Ordering Provider: SA SHARI QUINTEROS Report Released Date/Time: Feb 28, 2024 09:05 AM Reporting Lab: [address] [address] Performing Lab: [address] [address] CREATININE 0.81 mg/dL 0.7-1.3 UREA NITROGEN 9.5 mg/dL 9.0-25.0 GLUCOSE 108 mg/dL H 72-99 SODIUM 135 meq/L L 136-145 POTASSIUM 4.4 meq/L 3.5-5 CHLORIDE 100 meq/L 98-107 CARBON DIOXIDE 24 meq/L 22-31 CALCIUM 9.2 mg/dL 8.4-10.4 PHOSPHOROUS 3.8 mg/dL 2.3-4.7 ALBUMIN 4.1 g/dL 3.4-5 EGFR (CKD-EPI 2020) 85.3 >60 Feb 29, 2024 02:17 PM [facility] CBC Specimen Type: BLOOD No comment entered. Ordering Provider: SA SHARI QUINTEROS Report Released Date/Time: Feb 28, 2024 09:05 AM Reporting Lab: [address] [address] Performing Lab: [address] [address] WBC 10.0 10*3/uL 3.6-11.2 RBC 4.36 10*6/uL [...] 2.09 10*3/uL 0.77-4.50 NEUT#-MDIFF 6.61 10*3/uL 2.10-8.00 Vital Signs: All taken on the encounter date This section contains inpatient and outpatient Vital Signs collected on the date of the Encounter. Date/Time Temperature Pulse Blood Pressure Respiratory Rate SP02 Pain Height Weight Body Mass Index Source Feb 29, 2024 01:38 PM 97.8 73 136/68 16 96 0 198 26 [facility] Immunizations: All administered on the encounter date This section contains immunizations associated to the Encounter. Immunization Series Date Issued Reaction Comments INFLUENZA, HIGH-DOSE, TRIVALENT, PF Feb 28 Social History: Smoking Status (Most current) and Tobacco Use (All prior to encounter date) This section includes the most current, and the historical, smoking and tobacco- related health factors from the [place] facility where the Encounter took place. Current Smoking Status This section includes the most current smoking, or tobacco-related health factor, from the [place] facility where the Encounter took place. Date/Time Current Smoking Status Comment Dena ity Nov 23, 2023 11:30 AM [place]-TOBACCO NEVER USED [facility] Tobacco Use History This section includes a history of the smoking, or tobacco-related health factors, that were collected on or before the date of the Encounter. The data comes from the [place] facility where the Encounter took place. Date/Time Smoking Status/Tobacco Use Comment F acbailey Nov 23, 2023 11:30 AM [place]-TOBACCO NEVER USED [facility] Nov 23, 2023 11:30 AM VA-TOBACCO QUIT 15 YRS OR MORE [facility] Nov 14, 2023 01:18 AM ORYX ADMIT TOBACCO SCREEN NO [facility] Aug 04, 2022 11:30 AM VA-TOBACCO NEVER USED [facility] Mar 11, 2021 10:30 AM VA-TOBACCO FORMER USER [facility] Mar 11, 2021 10:30 AM VA-TOBACCO QUIT 15 YRS OR MORE [facility] Apr 19, 2018 09:07 AM VA-TOBACCO FORMER USER [facility] Apr 19, 2018 09:07 AM VA-TOBACCO QUIT 15 YRS OR MORE [facility] Jul 24, 2017 08:16 AM QUIT TOBACCO >7 YEARS AGO [facility] Apr 16, 2017 12:43 PM QUIT TOBACCO >7 YEARS AGO [facility] Feb 01, 2017 11:47 AM LIFETIME NON-USER OF TOBACCO [facility] Nov 15, 2016 09:00 AM QUIT TOBACCO >7 YEARS AGO [facility] September 11, 2016 06:27 PM QUIT TOBACCO >7 YEARS AGO [facility] Dec 09, 2015 10:17 AM QUIT TOBACCO >7 YEARS AGO [facility] Jan 05, 2015 08:22 AM CURRENT TOBACCO USER [facility] Jan 05, 2015 08:22 AM TOBACCO MEDS OFFER ED BUT DECLINED [facility] Mar 18, 2014 10:40 AM CURRENT TOBACCO USER [facility] Mar 18, 2014 10:40 AM TOBACCO MEDS OFFER ED BUT DECLINED [facility] Nov 04, 2013 09:40 AM CURRENT TOBACCO USER [facility] Nov 26, 2012 08:10 AM QUIT TOBACCO >7 YEARS AGO [facility] May 03, 2009 08:45 AM QUIT TOBACCO >7 YEARS AGO [facility] Jul 06, 2008 08:46 AM CURRENT TOBACCO USER [facility] Jul 25, 2007 12:30 PM QUIT TOBACCO >12 M O & <7 YRS AGO [facility] Jun 07, 2006 09:21 AM CURRENT TOBACCO USER [facility] Jun 07, 2006 09:21 AM TOBACCO [facility] Aug 25, 2005 11:01 AM CURRENT TOBACCO USER [facility] Aug 25, 2005 11:01 AM TOBACCO CONTEMPLATION STAGE [facility] Oct 25, 2004 10:18 AM CURRENT NON-TOBACC O USER-HX OF USE [facility] Oct 25, 2004 10:18 AM TOBACCO TERMINATION STAGE [facility] Aug 24, 2003 10:43 AM CURRENT NON-TOBACC O USER-HX OF USE [facility] Aug 24, 2003 10:43 AM TOBACCO TERMINATION STAGE [facility] Aug 05, 2002 09:55 AM CURRENT NON-TOBACC O USER-HX OF USE QUIT [facility] Apr 15, 2001 08:28 AM CURRENT NON-TOBACC O USER-HX OF USE quit in 1979 [facility] Advance Directives: All historical and current Section Date Range: From patient's date of to the date document was created. This section includes ALL of a patient's completed or amended [place] Advance and Rescinded Directives. The entries below indicate that a directive exists for the patient, but an actual copy is not included with this document. The data comes from all [place] facilities. Date Advance Directives Provider Source Oct 19, 2023 ADVANCE DIRECTIVE WANG MURILLO [facility] Dec 12, 2022 RESCINDED ADVANCE DIRECTIVE JITENDRA MEADOWS [facility] September 12, 2016 ADVANCE DIRECTIVE DISCUSSION YVETTE MEADOWS [facility] Radiology Reports: +/- 30 days of the [...] the Encounter. The data comes from all [place] treatment facilities. Date/Time Radiology Report Provider Source Mar 08, 2024 01:10 PM US CAROTID BILATER AL: JESUS ABRAHAM [id number] -[id number] M Exm Date: MAR 08, 2024@13:10 Req Phys: ALDAIRCHARLINELian Agee Loc: COM CARE-STL REHAB PT (Req'g L Img Loc: HAL-ULTRASOUND [facility] Service: Unknown [facility] [address] [place] [address] (Case [id number] COMPLETE) US CAROTID BILATERAL (US Detailed) CPT:98055 Reason for Study: TIA type symptoms evaluate for carotid stenosis Clinical History: Report Status: Verified Date Reported: MAR 10, 2024 Date Verified: MAR 10, 2024 Nanofabrication Specialist E-Sig:/ES/AMBER BARTLETT Report: Case [id number]. Bilateral extracranial carotid ultrasound examination. Grayscale, spectral [...] of hemodynamically significant stenosis. Mynor Jaramillo MD (Marketing Operations Specialist) I, Amber Bartlett, have reviewed the images and report and concur with these findings. Primary Interpreting Staff: AMBER BARTLETT MD (Nanofabrication Specialist) Primary Interpreting Resident: MYNOR JARAMILLO, Resident Physician /AMBER LYLE [facility] Encounter Notes: All associated encounter notes This section contains the clinical notes associated to the Encounter. Date/Time Encounter Note(s) Provider Source Mar 13, 2024 09:40 AM ADDENDUM: LOCAL TITLE: Addendum STANDARD TITLE: ADDENDUM DATE OF NOTE: MAR 13, 2024@09:40:29 ENTRY DATE: MAR 13, 2024@09:40:29 AUTHOR: CHARLINE QUINTEROS EXP COSIGNER: URGENCY: STATUS: COMPLETED Ms. Christie, Can you please let the 's caregiver Cassandra know that his carotid ultrasound was negative. We have truly worked up everything for his vertigo, so continue physical therapy exercises and avoid falls. Right carotid: No evidence of hemodynamically significant stenosis. Left carotid: No evidence of hemodynamically significant stenosis. 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 His granddaughter Cassandra Burns is the main contact [phone]. 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 Improves with PRN meclizine. -TIA type symptoms?: granddaughter describes episode of facial droop lasting approx 2 minutes which resolved after patient massaged his face. 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 Carotid duplex u/s. Could be stress related as it occurred only twice after spouse . -OSTEOARTHRITIS LEFT KNEE: -s/p replacement,diclofenac gel PRN-physical therapy referral via [facility] due to difficulty traveling, requested [facility] PT. Naproxen PRN. -CHEST PAIN, right sided: improves with deep breathing. Normal lung exam. No other symptoms and had a full cardiac workup a few months ago. Reassurance. REVIEW OF SYSTEMS: All 10 systems reviewed and negative except as noted above MEDICAL HISTORY: 1) Coronary artery disease (SNOMED CT 85717198) 2) Hyperlipidaemia (SNOMED CT 39393822) 3) Allergic rhinitis * (ICD-9-CM 477.9) 4) Carcinoma, Basal Cell 5) Osteoarthritis of knee (SNOMED CT 041292746) 6) Age related macular degeneration (SNOMED CT 497971137) 7) Colonic Polyps 8) Diabetes Mellitus without mention of Complication, type II or unspecified type, 9) Benign essential hypertension (SNOMED CT 9350893) 10) Pain in joint involving shoulder region (ICD-9-CM 719.41) 11) Palpitations (ICD-9-CM 785.1) 12) Plantar fascial fibromatosis (ICD-9-CM 728.71) 13) Pain in joint involving hand (ICD-9-CM 719.44) 14) Degeneration of intervertebral disc (ICD-9-CM 722.6) 15) Personal History of Colonic Polyps (ICD-9-CM V12.72) 16) Actinic Keratosis 17) Knee: arthralgia * (ICD-9-CM 719.46) 18) Other Malaise and Fatigue (ICD-9-CM 780.79) 19) History/Skin/CA 20) Dermatitis (SNOMED CT 371020010) 21) Dry skin (SNOMED CT 92275368) 22) Chest pain 23) Exudative age-related macular degeneration 24) Hyperlipidemia 25) Diabetes mellitus 26) Insomnia 27) Osteoarthritis of knee 28) Benign paroxysmal positional vertigo SURGICAL HISTORY 08/2017 left eye cataract extraction with lens implant 11/2017 right eye cataract with lens implant BCC s/p MOHS Left total knee arthroplasty 2016 TURBT for bladder cancer 2015 FAMILY HISTORY Two brothers aged 82 and 80 in good health, no medical problems SOCIAL HISTORY TOBACCO- Never ALCOHOL- rare ILLICITS- none LIVES- [facility] in [facility], previously lived [place] [address]. Has big family with great grandchildren. Spouse of 67 years November 2023. 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 - [employer] 4 years served in [employer], retired ALLERGIES reviewed Active Outpatient Medications (including Supplies): Active Outpatient Medications Status 1) DICLOFENAC NA 1% TOP GEL APPLY 2 GM TO AFFECTED ACTIVE (S) AREA(S) FOUR TIMES A DAY FOR PAIN NOT MORE THAN 16 GRAMS DAILY TO ANY LOWER EXTREMITY JOINT. NOT MORE THAN 8 GRAMS DAILY TO ANY UPPER EXTREMITY JOINT. MAX 32GM/DAY OVER ALL JOINTS. (MEASURE DOSE WITH RULER ATTACHED INSIDE BOX) APPLY PRESCRIBED TO RIGHT SHOULDER 2) MECLIZINE HCL 25MG CHEW TAB CHEW AND SWALLOW ONE-HALF ACTIVE TABLET BY MOUTH THREE TIMES A DAY NEEDED FOR VERTIGO CHEWABLE TABLETS MAY BE CHEWED OR SWALLOWED WHOLE. MAY CAUSE DROWSINESS. 3) ROSUVASTATIN CA 40MG TAB TAKE ONE-HALF TABLET BY ACTIVE MOUTH EVERY EVENING TO LOWER CHOLESTEROL Pending Outpatient Medications Status 1) MECLIZINE HCL 25MG CHEW TAB CHEW AND SWALLOW ONE-HALF PENDING TABLET BY MOUTH THREE TIMES A DAY NEEDED CHEWABLE TABLETS MAY BE CHEWED OR SWALLOWED WHOLE. MAY CAUSE DROWSINESS. 2) NAPROXEN 375MG TAB TAKE ONE TABLET BY MOUTH TWICE PENDING DAILY NEEDED TAKE WITH FOOD. Active Non-VA Medications Status 1) Non-VA ASPIRIN 81MG EC TAB 81MG BY MOUTH ONCE A DAY ACTIVE 2) Non-VA MULTIVITAMIN/OPHTH ANTIOX/LUTEIN CAP/TAB 1 ACTIVE CAP/TAB BY MOUTH ONCE A DAY 7 Total Medications PHSYICAL EXAM: BP: 136/68 P: 73 R: 16 WT: 198 T: 97.8 HT: General: Sitting in chair, in no acute distress Skin: No rashes, bruising HEENT: NC, EOMI. HARD OF HEARING. Lungs: CTAB, No wheezes or crackles Cardiovascular: Regular rate and rhythm, no murmur noted. NO REPRODUCIBLE TENDERNESS OF THE RIGHT CHEST WALL Abdominal: Soft, Non-tender, active bowel sounds Extremities: Moving all extremities. Neuro: Alert and oriented x3. No focal deficits LABS: reviewed and notable for LDL: CALCULATED LDL 82 mg/dL 05/18/2023 10:09 CHOLESTEROL 151 mg/dL 05/18/2023 10:09 A1c: HGA1C 7.3 H % 05/18/2023 10:09 CBC: WBC 12.8 H 10*3/uL 11/14/2023 06:00 RBC 3.87 L 10*6/uL 11/14/2023 06:00 HGB 11.9 L g/dL 11/14/2023 06:00 HCT 35.7 L % 11/14/2023 06:00 MCV 92.2 fL 11/14/2023 06:00 MCH 30.7 pg 11/14/2023 06:00 MCHC 33.3 g/dL 11/14/2023 06:00 RDW 13.8 % 11/14/2023 06:00 PLT 407 H 10*3/uL 11/14/2023 06:00 MPV 9.3 fL 11/14/2023 06:00 NEUTROPHILS, AUTO % 62 % 11/14/2023 06:00 LYMPHOCYTES, AUTO % 23 % 11/14/2023 06:00 MONOCYTES, AUTO % 12 % 11/14/2023 06:00 EOSINOPHILS, AUTO % 3 % 11/14/2023 06:00 BASOPHILS, AUTO % 1 % 11/14/2023 06:00 NEUTROPHILS, ABSOLUTE 7.89 10*3/uL 11/14/2023 06:00 LYMPHOCYTES, ABSOLUTE 2.87 10*3/uL 11/14/2023 06:00 MONOCYTES, ABSOLUTE 1.51 H 10*3/uL 11/14/2023 06:00 EOSINOPHILS, ABSOLUTE 0.38 10*3/uL 11/14/2023 06:00 BASOPHILS, ABSOLUTE 0.07 10*3/uL 11/14/2023 06:00 NEUTROPHILS 72.2 % 11/13/2023 14:20 LYMPHOCYTES 15.6 % 11/13/2023 14:20 MONOCYTES 8.7 % 11/13/2023 14:20 EOSINOPHILS 2.6 % 11/13/2023 14:20 BASOPHILS 0.9 % 11/13/2023 14:20 ATYPICAL LYMPHOCYTES 3.5 % 05/03/2023 12:55 POIKILOCYTOSIS 1+ 11/13/2023 14:20 CMP: SODIUM 136 mEq/L 11/14/2023 06:00 POTASSIUM 4.4 mEq/L 11/14/2023 06:00 CHLORIDE 103 mEq/L 11/14/2023 06:00 UREA NITROGEN 12.0 mg/dL 11/14/2023 06:00 CREATININE 0.78 mg/dL 11/14/2023 06:00 CALCIUM 8.8 mg/dL 11/14/2023 06:00 PROTEIN 7.1 g/dL 11/13/2023 14:20 ALBUMIN 3.7 g/dL 11/13/2023 14:20 ALKALINE PHOSPHATASE 71 U/L 11/13/2023 14:20 ALT/SGPT 34 U/L 11/13/2023 14:20 AST/SGOT 25 U/L 11/13/2023 14:20 TOTAL BILIRUBIN 0.3 mg/dL 11/13/2023 14:20 CARBON DIOXIDE 26 mEq/L 11/14/2023 06:00 GLUCOSE 83 mg/dL 11/14/2023 06:00 EGFR (CKD-EPI 2020) 86.3 11/14/2023 06:00 Micral: No data available for: uACR (STL) Vit D: VITAMIN D, 25-HYDROXY 20.0 L ng/mL 05/18/2023 10:09 05/03/23 er visit: trop negative, CMP wnl, CBC wnl, BNP 105 07/2022 micral 108, A1c 6.6%, LDL 62, BMP wnl IMAGING Imaging impressions TTE 11/14/23 1. Global systolic function: Overall left ventricular systolic function is normal with an estimated ejection fraction of 65- 70%. 2. Normal right ventricular systolic function. 3. Mild diastolic dysfunction (grade I) with normal left atrial filling pressure. 4. The left atrium is mildly enlarged. 5. No hemodynamically significant valvular abnormality. 6. Effusion: No pericardial effusion. 7. As compared with the previous echocardiogram done on 03/17/2022, there has been no significant change. 05/03/2023 CHEST X-RAY, 2 VIEWS [id number] Verified 2753 No acute cardiopulmonary process. 03/17/2022 echo tte 1. Normal biventricular size and systolic function (est. LVEF = 60 - 65%. 2. Biatrial enlargement 3. Mild LV diastolic dysfunction (grade I) with normal left atrial filling pressure. 4. No significant valvular abnormality. 5. Unable to estimate RVSP due to inadequate TR spectral Doppler profile. 6. The inferior vena cava is normal in size with normal inspiratory variation, which is consistent with estimated right atrial pressure of 5 mmHg. 7. No significant change compared to echo report dated 02/16/16 STRESS TEST 2021 1. Normal SPECT myocardial perfusion imaging at stress and rest. This is grossly unchanged compared to prior study. 2. No evidence of stress induced ischemia. 3. Normal LV contractility with LVEF of 77%. HEALTH MAINTENANCE ==IMMUNIZATIONS== - Tdap (q10y): 2017 - Influenza (annual): 02/29/24 - Pneumococcal: pneumococcal 2001, PCV13 2015 - Zoster (2 doses 50y+): #1 05/18/23 #2 11/23/23 - COVID vaccine: up to date - HIV (once 15-65y): low risk, declined - Hep C (once 18-79y): nonreactive 2000 ==PREVENTATIVE CARE== - PSA (q2y men 55-69): aged out - Colorectal cancer screening (50-75y): 2013, now aged out. ==TOBACCO USE== - never smoker ASSESSMENT & PLAN: CARDIOVASCULAR DISEASE PREVENTION -Lipid profile: CALCULATED LDL 82 mg/dL 05/18/2023 10:09 ____ -A1c: HGA1C 7.3 H % 05/18/2023 10:09 -Tobacco use: nonsmoker -ASA: takes 81mg daily CAD s/p ?stent -chest pain episode 05/03 active, ER workup negative for cardiac etiology -not on BB or ACEi d/t lightheadedness and falls -TTE 03/2022 with EF 60-65%, G1DD -stress test: 2018 wnl, has multiple prior stress tests all normal PLAN -repeat TTE 11/2023 with EF 70% and no changes from 2021 -stress test 2023 wnl -reassurance, no indication for further cardiology referral. 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 -eval for carotid stenosis with duplex u/s 02/2024 OSTEOARTHRITIS LEFT KNEE -s/p knee replacement -diclofenac gel PRN -naproxen PO BID PRN -refer to [facility] for PT VERTIGO -[facility] for vertigo/vestibular clinic near home due to travel difficulties -meclizine PRN, counseled on drowsiness side effect -cardiac etiology ruled out during hospital admission 11/2023 CHRONIC COUGH RIB PAIN -tessalon pearls PRN, mucinex PRN -cardiac workup negative (left rib pain) 05/03/23 -tylenol PRN recommended POSTURAL HYPOTENSION -positional, off all antihypertensives now -03/2022 TTE wnl, no etiology for presyncope or valvular findings -counseled on careful transitioning of positions given age POSITIVE QUANTIFERON -CXR with old granuloma -eval by ID completed, no further evaluation/treatment indicated WET MACULAR DEGENERATION -[facility] for [facility] appointments or comes with family -continue eye drops, vitamin HEMORRHOIDS -phenylephrine suppositories PRN RTC in 3-4 Months (labs today) Charline Quinteros M.D. Physician, Internal Medicine Primary Care Team C6 PCP 03/03/24 9:15 am [facility] [phone] 03/10/24 12:45 pm HAL-OPHTH RETINA 05/15/24 11:00 am HAL-OPTOMETRY 07/02/24 2:30 pm HAL-PACT C6 PCP Time Spent: 40 min Chart Review: 10 min Time with patient: 20 min Post-visit care: 10 min REMINDERS RHS Screen - VS: RHS Screen Session Format: Face to Face Environmental Check Screening was not completed at this time due to: Another adult present Sexual Orientation - CP,L,N,P,PH,PS,S,U: The patient thinks of their sexual orientation as: Straight or Heterosexual /pennie QUINTEROS MD STAFF PHYSICIAN Signed: 02/29/2024 16:23 03/04/2024 ADDENDUM STATUS: COMPLETED called Cassandra with lab results. all questions and concerns addressed. Will try to make some dietary changes for uptrending A1c. Has been eating a lot of salted caramel chocolates. /manuel/ CHARLINE QUINTEROS MD STAFF PHYSICIAN Signed: 03/04/2024 13:45 CHARLINE QUINTEROS [facility] Feb 29, 2024 01:51 PM NURSING NOTE: LOCAL TITLE: V15 PACT FACE TO FACE NOTE STL STANDARD TITLE: NURSING NOTE DATE OF NOTE: FEB 29, 2024@13:51 ENTRY DATE: FEB 29, 2024@13:51:10 AUTHOR: BITA IRVIN EXP COSIGNER: URGENCY: STATUS: COMPLETED Provider Visit: Patient Identifiers : Full Name Date of Reason for visit: Established Follow-Up Mode of Arrival: Ambulatory Allergy Review: Patient has answered NKA Allergy list reviewed and remains current. Recent Vital Signs: Temperature: 97.8 F [36.6 C] (02/29/2024 13:38) Pulse: 73 (02/29/2024 13:38) Respiration: 16 (02/29/2024 13:38) B/P: 136/68 (02/29/2024 13:38) Pain: 0 (02/29/2024 13:38) Wt: 198 lb [89.81 kg] (02/29/2024 13:38) Ht: 73 in [185.4 cm] (05/18/2023 10:28) BMI: 26.2 POX: 96% (02/29/2024 13:38) Would you like to discuss any personal problem, family problem, alcohol use, drug use, or a mental or emotional illness? No Contact provided Primary Care phone number and encouraged to call if any questions or concerns. Review that after hours nurse line [phone] and emergency room are available 04/12 for patient use. Contact verbalized good understanding. COVID-19 Immunization - L,N,P,PH,U: Refused Pfizer Monovalent COVID-19 vaccine Immunization: COVID-19 (PFIZER), MRNA, LNP-S, PF, FREDA-SUCROSE, 30 MCG/0.3 ML (AGES 12+ YEARS) Refusal Reason: PATIENT DECISION Patient refuses all immunization(s) in the COVID-19 group Date Documented: 02/29/24 13:52 Influenza Immunization - L,N,P,PH,U: Influenza, High-Dose, Trivalent, Preservative Free (Fluzone-Syringe) Administered: INFLUENZA, HIGH-DOSE, TRIVALENT, PF Date Administered: Feb 29, 2024 13:30 Series: (None selected) Intelligence Clerk: SANOFI PASTEUR Lot: [id number] Exp Date: Nov 10, 2024 [facility]: [phone] Admin Route/Site: INTRAMUSCULAR/RIGHT DELTOID Dosage: 0.5mL Vaccine Information Statement(s): INFLUENZA(FLU) VACC(INACTIVATED OR RECOMBINANT)VIS Dec 17, 2020 (KYRGYZ) Order By: Policy Administered By: Bita Irvin The Influenza Vaccine Information Statement (VIS) was reviewed with the patient/caregiver which lists the benefits and risks of the vaccine and the risks of not receiving the Influenza vaccine. The patient/caregiver denied any prior severe reaction to this vaccine or its components or a severe allergic reaction, such as anaphylaxis, to any vaccine or any injectable therapy. The patient/caregiver gave verbal consent to receive the vaccine. 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 His granddaughter Cassandra Burns is the main contact [phone]. 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 Improves with PRN meclizine. -TIA type symptoms?: granddaughter describes episode of facial droop lasting approx 2 minutes which resolved after patient massaged his face. 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 Carotid duplex u/s. Could be stress related as it occurred only twice after spouse . -OSTEOARTHRITIS LEFT KNEE: -s/p replacement,diclofenac gel PRN-physical therapy referral via [facility] due to difficulty traveling, requested [facility] PT. Naproxen PRN. -CHEST PAIN, right sided: improves with deep breathing. Normal lung exam. No other symptoms and had a full cardiac workup a few months ago. Reassurance. REVIEW OF SYSTEMS: All 10 systems reviewed and negative except as noted above MEDICAL HISTORY: 1) Coronary artery disease (SNOMED CT 86791828) 2) Hyperlipidaemia (SNOMED CT 92046207) 3) Allergic rhinitis * (ICD-9-CM 477.9) 4) Carcinoma, Basal Cell 5) Osteoarthritis of knee (SNOMED CT 458796887) 6) Age related macular degeneration (SNOMED CT 612431501) 7) Colonic Polyps 8) Diabetes Mellitus without mention of Complication, type II or unspecified type, 9) Benign essential hypertension (SNOMED CT 3673220) 10) Pain in joint involving shoulder region (ICD-9-CM 719.41) 11) Palpitations (ICD-9-CM 785.1) 12) Plantar fascial fibromatosis (ICD-9-CM 728.71) 13) Pain in joint involving hand (ICD-9-CM 719.44) 14) Degeneration of intervertebral disc (ICD-9-CM 722.6) 15) Personal History of Colonic Polyps (ICD-9-CM V12.72) 16) Actinic Keratosis 17) Knee: arthralgia * (ICD-9-CM 719.46) 18) Other Malaise and Fatigue (ICD-9-CM 780.79) 19) History/Skin/CA 20) Dermatitis (SNOMED CT 761440967) 21) Dry skin (SNOMED CT 36613634) 22) Chest pain 23) Exudative age-related macular degeneration 24) Hyperlipidemia 25) Diabetes mellitus 26) Insomnia 27) Osteoarthritis of knee 28) Benign paroxysmal positional vertigo SURGICAL HISTORY 08/2017 left eye cataract extraction with lens implant 11/2017 right eye cataract with lens implant BCC s/p MOHS Left total knee arthroplasty 2016 TURBT for bladder cancer 2015 FAMILY HISTORY Two brothers aged 82 and 80 in good health, no medical problems SOCIAL HISTORY TOBACCO- Never ALCOHOL- rare ILLICITS- none LIVES- [facility] in [facility], previously [place] [address] Has big family with great grandchildren. Spouse of 67 years November 2023. 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 - [place] 4 years served in [employer], retired ALLERGIES reviewed Active Outpatient Medications (including Supplies): Active Outpatient Medications Status 1) DICLOFENAC NA 1% TOP GEL APPLY 2 GM TO AFFECTED ACTIVE (S) AREA(S) FOUR TIMES A DAY FOR PAIN NOT MORE THAN 16 GRAMS DAILY TO ANY LOWER EXTREMITY JOINT. NOT MORE THAN 8 GRAMS DAILY TO ANY UPPER EXTREMITY JOINT. MAX 32GM/DAY OVER ALL JOINTS. (MEASURE DOSE WITH RULER ATTACHED INSIDE BOX) APPLY PRESCRIBED TO RIGHT SHOULDER 2) MECLIZINE HCL 25MG CHEW TAB CHEW AND SWALLOW ONE-HALF ACTIVE TABLET BY MOUTH THREE TIMES A DAY NEEDED FOR VERTIGO CHEWABLE TABLETS MAY BE CHEWED OR SWALLOWED WHOLE. MAY CAUSE DROWSINESS. 3) ROSUVASTATIN CA 40MG TAB TAKE ONE-HALF TABLET BY ACTIVE MOUTH EVERY EVENING TO LOWER CHOLESTEROL Pending Outpatient Medications Status 1) MECLIZINE HCL 25MG CHEW TAB CHEW AND SWALLOW ONE-HALF PENDING TABLET BY MOUTH THREE TIMES A DAY NEEDED CHEWABLE TABLETS MAY BE CHEWED OR SWALLOWED WHOLE. MAY CAUSE DROWSINESS. 2) NAPROXEN 375MG TAB TAKE ONE TABLET BY MOUTH TWICE PENDING DAILY NEEDED TAKE WITH FOOD. Active Non-VA Medications Status 1) Non-VA ASPIRIN 81MG EC TAB 81MG BY MOUTH ONCE A DAY ACTIVE 2) Non-VA MULTIVITAMIN/OPHTH ANTIOX/LUTEIN CAP/TAB 1 ACTIVE CAP/TAB BY MOUTH ONCE A DAY 7 Total Medications PHSYICAL EXAM: BP: 136/68 P: 73 R: 16 WT: 198 T: 97.8 HT: General: Sitting in chair, in no acute distress Skin: No rashes, bruising HEENT: NC, EOMI. HARD OF HEARING. Lungs: CTAB, No wheezes or crackles Cardiovascular: Regular rate and rhythm, no murmur noted. NO REPRODUCIBLE TENDERNESS OF THE RIGHT CHEST WALL Abdominal: Soft, Non-tender, active bowel sounds Extremities: Moving all extremities. Neuro: Alert and oriented x3. No focal deficits LABS: reviewed and notable for LDL: CALCULATED LDL 82 mg/dL 05/18/2023 10:09 CHOLESTEROL 151 mg/dL 05/18/2023 10:09 A1c: HGA1C 7.3 H % 05/18/2023 10:09 CBC: WBC 12.8 H 10*3/uL 11/14/2023 06:00 RBC 3.87 L 10*6/uL 11/14/2023 06:00 HGB 11.9 L g/dL 11/14/2023 06:00 HCT 35.7 L % 11/14/2023 06:00 MCV 92.2 fL 11/14/2023 06:00 MCH 30.7 pg 11/14/2023 06:00 MCHC 33.3 g/dL 11/14/2023 06:00 RDW 13.8 % 11/14/2023 06:00 PLT 407 H 10*3/uL 11/14/2023 06:00 MPV 9.3 fL 11/14/2023 06:00 NEUTROPHILS, AUTO % 62 % 11/14/2023 06:00 LYMPHOCYTES, AUTO % 23 % 11/14/2023 06:00 MONOCYTES, AUTO % 12 % 11/14/2023 06:00 EOSINOPHILS, AUTO % 3 % 11/14/2023 06:00 BASOPHILS, AUTO % 1 % 11/14/2023 06:00 NEUTROPHILS, ABSOLUTE 7.89 10*3/uL 11/14/2023 06:00 LYMPHOCYTES, ABSOLUTE 2.87 10*3/uL 11/14/2023 06:00 MONOCYTES, ABSOLUTE 1.51 H 10*3/uL 11/14/2023 06:00 EOSINOPHILS, ABSOLUTE 0.38 10*3/uL 11/14/2023 06:00 BASOPHILS, ABSOLUTE 0.07 10*3/uL 11/14/2023 06:00 NEUTROPHILS 72.2 % 11/13/2023 14:20 LYMPHOCYTES 15.6 % 11/13/2023 14:20 MONOCYTES 8.7 % 11/13/2023 14:20 EOSINOPHILS 2.6 % 11/13/2023 14:20 BASOPHILS 0.9 % 11/13/2023 14:20 ATYPICAL LYMPHOCYTES 3.5 % 05/03/2023 12:55 POIKILOCYTOSIS 1+ 11/13/2023 14:20 CMP: SODIUM 136 mEq/L 11/14/2023 06:00 POTASSIUM 4.4 mEq/L 11/14/2023 06:00 CHLORIDE 103 mEq/L 11/14/2023 06:00 UREA NITROGEN 12.0 mg/dL 11/14/2023 06:00 CREATININE 0.78 mg/dL 11/14/2023 06:00 CALCIUM 8.8 mg/dL 11/14/2023 06:00 PROTEIN 7.1 g/dL 11/13/2023 14:20 ALBUMIN 3.7 g/dL 11/13/2023 14:20 ALKALINE PHOSPHATASE 71 U/L 11/13/2023 14:20 ALT/SGPT 34 U/L 11/13/2023 14:20 AST/SGOT 25 U/L 11/13/2023 14:20 TOTAL BILIRUBIN 0.3 mg/dL 11/13/2023 14:20 CARBON DIOXIDE 26 mEq/L 11/14/2023 06:00 GLUCOSE 83 mg/dL 11/14/2023 06:00 EGFR (CKD-EPI 2020) 86.3 11/14/2023 06:00 Micral: No data available for: uACR (STL) Vit D: VITAMIN D, 25-HYDROXY 20.0 L ng/mL 05/18/2023 10:09 05/03/23 er visit: trop negative, CMP wnl, CBC wnl, BNP 105 07/2022 micral 108, A1c 6.6%, LDL 62, BMP wnl IMAGING Imaging impressions TTE 11/14/23 1. Global systolic function: Overall left ventricular systolic function is normal with an estimated ejection fraction of 65- 70%. 2. Normal right ventricular systolic function. 3. Mild diastolic dysfunction (grade I) with normal left atrial filling pressure. 4. The left atrium is mildly enlarged. 5. No hemodynamically significant valvular abnormality. 6. Effusion: No pericardial effusion. 7. As compared with the previous echocardiogram done on 03/17/2022, there has been no significant change. 05/03/2023 CHEST X-RAY, 2 VIEWS [id number] Verified 2753 No acute cardiopulmonary process. 03/17/2022 echo tte 1. Normal biventricular size and systolic function (est. LVEF = 60 - 65%. 2. Biatrial enlargement 3. Mild LV diastolic dysfunction (grade I) with normal left atrial filling pressure. 4. No significant valvular abnormality. 5. Unable to estimate RVSP due to inadequate TR spectral Doppler profile. 6. The inferior vena cava is normal in size with normal inspiratory variation, which is consistent with estimated right atrial pressure of 5 mmHg. 7. No significant change compared to echo report dated 02/16/16 STRESS TEST 2021 1. Normal SPECT myocardial perfusion imaging at stress and rest. This is grossly unchanged compared to prior study. 2. No evidence of stress induced ischemia. 3. Normal LV contractility with LVEF of 77%. HEALTH MAINTENANCE ==IMMUNIZATIONS== - Tdap (q10y): 2017 - Influenza (annual): 02/29/24 - Pneumococcal: pneumococcal 2001, PCV13 2015 - Zoster (2 doses 50y+): #1 05/18/23 #2 11/23/23 - COVID vaccine: up to date - HIV (once 15-65y): low risk, declined - Hep C (once 18-79y): nonreactive 2000 ==PREVENTATIVE CARE== - PSA (q2y men 55-69): aged out - Colorectal cancer screening (50-75y): 2013, now aged out. ==TOBACCO USE== - never smoker ASSESSMENT & PLAN: CARDIOVASCULAR DISEASE PREVENTION -Lipid profile: CALCULATED LDL 82 mg/dL 05/18/2023 10:09 ____ -A1c: HGA1C 7.3 H % 05/18/2023 10:09 -Tobacco use: nonsmoker -ASA: takes 81mg daily CAD s/p ?stent -chest pain episode 05/03 active, ER workup negative for cardiac etiology -not on BB or ACEi d/t lightheadedness and falls -TTE 03/2022 with EF 60-65%, G1DD -stress test: 2018 wnl, has multiple prior stress tests all normal PLAN -repeat TTE 11/2023 with EF 70% and no changes from 2021 -stress test 2023 wnl -reassurance, no indication for further cardiology referral. 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 -eval for carotid stenosis with duplex u/s 02/2024 OSTEOARTHRITIS LEFT KNEE -s/p knee replacement -diclofenac gel PRN -naproxen PO BID PRN -refer to [facility] for PT VERTIGO -[facility] for vertigo/vestibular clinic near home due to travel difficulties -meclizine PRN, counseled on drowsiness side effect -cardiac etiology ruled out during hospital admission 11/2023 CHRONIC COUGH RIB PAIN -tessalon pearls PRN, mucinex PRN -cardiac workup negative (left rib pain) 05/03/23 -tylenol PRN recommended POSTURAL HYPOTENSION -positional, off all antihypertensives now -03/2022 TTE wnl, no etiology for presyncope or valvular findings -counseled on careful transitioning of positions given age POSITIVE QUANTIFERON -CXR with old granuloma -eval by ID completed, no further evaluation/treatment indicated WET MACULAR DEGENERATION -[facility] for his appointments or comes with family -continue eye drops, vitamin HEMORRHOIDS -phenylephrine suppositories PRN RTC in 3-4 Months (labs today) Charline Quinteros M.D. Physician, Internal Medicine Primary Care Team C6 PCP 03/03/24 9:15 am [facility] [phone] 03/10/24 12:45 pm HAL-OPHTH RETINA 05/15/24 11:00 am HAL-OPTOMETRY 07/02/24 2:30 pm HAL-PACT C6 PCP Time Spent: 40 min Chart Review: 10 min Time with patient: 20 min Post-visit care: 10 min REMINDERS RHS Screen - VS: RHS Screen Session Format: Face to Face Environmental Check Screening was not completed at this time due to: Another adult present Sexual Orientation - CP,L,N,P,PH,PS,S,U: The patient thinks of their sexual orientation as: Straight or Heterosexual /manuel/ CHARLINE QUINTEROS MD STAFF PHYSICIAN Signed: 02/29/2024 16:23 03/04/2024 ADDENDUM STATUS: COMPLETED called Cassandra with lab results. all questions and concerns addressed. Will try to make some dietary changes for uptrending A1c. Has been eating a lot of salted caramel chocolates. /manuel/ CHARLINE QUINTEROS MD STAFF PHYSICIAN Signed: 03/04/2024 13:45 03/13/2024 ADDENDUM STATUS: COMPLETED Ms. Christie, Can you please let the 's caregiver Cassandra know that his carotid ultrasound was negative. We have truly worked up everything for his vertigo, so continue physical therapy exercises and avoid falls. Right carotid: No evidence of hemodynamically significant stenosis. Left carotid: No evidence of hemodynamically significant stenosis. Thank you, /manuel/ CHARLINE QUINTEROS MD STAFF PHYSICIAN Signed: 03/13/2024 09:41 Receipt Acknowledged By: 03/13/2024 10:10 /manuel/ AGUEDA DAWSON Registered Nurse 03/13/2024 ADDENDUM STATUS: COMPLETED RNCM called patient to relay above message from PCP, patient verbalized understanding. /pennie DAWSON Registered Nurse Signed: 03/13/2024 10:11 CHARLINE QUINTEROS [facility]
--- OUTSIDE RECORDS SUMMARY | 2024-05-17 21:49 | XMS_ITS | Encounter Summary ---
Author Name [facility] [place] [facility] [place] [facility] [place] Address [address] [place] [address] Care Team Providers Care Sign Language Instructor Name Role Phone MEAGHAN QUINTEROS Primary Care [...] PART A Aug 12, 2001 PART A [id number] [phone] JESUS ABRAHAM PATIENT MEDICARE (WNR) MEDICARE (M) PART B Aug 12, 2001 PART B [id number] JESUS ABRAHAM PATIENT Selected Encounter This section includes the information on record at [place] for the Encounter. Date/Time Encounter Type Encounter Description Reason Provider Source Apr 29, 2024 10:50 AM Outpatient Encounter TELEPHONE TRIAGE SUKI MENJIVAR [facility] Encounter Template Text not used by [place] [...] 15, 2024 11:00 AM AMBULATORY - SURGERY [facility] Yohan [facility] May 26, 2024 12:30 PM AMBULATORY - SURGERY [facility] Jul 02, 2024 02:30 PM AMBULATORY - MEDICINE [facility] Social History: Smoking Status (Most current) and [...] place. Date/Time Current Smoking Status Comment Dena sarkar Nov 23, 2023 11:30 AM VA-TOBACCO NEVER USED [facility] Tobacco Use History This section includes a history of the smoking, or tobacco-related health factors, that were collected on or before the date of the Encounter. The data comes from the [place] facility where the Encounter took place. Date/Time Smoking Status/Tobacco Use Comment F acility Nov 23, 2023 11:30 AM VA-TOBACCO NEVER USED [facility] Nov 23, 2023 11:30 AM VA-TOBACCO QUIT 15 YRS OR MORE [facility] Nov 14, 2023 01:18 AM ORYX ADMIT TOBACCO SCREEN NO [facility] Aug 04, 2022 11:30 AM VA-TOBACCO NEVER USED [facility] Mar 11, 2021 10:30 AM VA-TOBACCO FORMER USER [facility] Mar 11, 2021 10:30 AM VA-TOBACCO QUIT 15 YRS OR MORE [facility] Apr 19, 2018 09:07 AM VA-TOBACCO FORMER USER [facility] Apr 19, 2018 09:07 AM VA-TOBACCO QUIT 15 YRS OR MORE [facility] Jul 24, 2017 08:16 AM QUIT TOBACCO >7 YEARS AGO [facility] Apr 16, 2017 12:43 PM QUIT TOBACCO >7 YEARS AGO [facility] Feb 01, 2017 11:47 AM LIFETIME NON-USER OF TOBACCO [facility] Nov 15, 2016 09:00 AM QUIT TOBACCO >7 YEARS AGO [facility] September 11, 2016 06:27 PM QUIT TOBACCO >7 YEARS AGO [facility] Dec 09, 2015 10:17 AM QUIT TOBACCO >7 YEARS AGO [facility] Jan 05, 2015 08:22 AM CURRENT TOBACCO USER [facility] Jan 05, 2015 08:22 AM TOBACCO MEDS OFFER ED BUT DECLINED [facility] Mar 18, 2014 10:40 AM CURRENT TOBACCO USER [facility] Mar 18, 2014 10:40 AM TOBACCO MEDS OFFER ED BUT DECLINED [facility] Nov 04, 2013 09:40 AM CURRENT TOBACCO USER [facility] Nov 26, 2012 08:10 AM QUIT TOBACCO >7 YEARS AGO [facility] May 03, 2009 08:45 AM QUIT TOBACCO >7 YEARS AGO [facility] Jul 06, 2008 08:46 AM CURRENT TOBACCO USER [facility] Jul 25, 2007 12:30 PM QUIT TOBACCO >12 M O & <7 YRS AGO [facility] Jun 07, 2006 09:21 AM CURRENT TOBACCO USER [facility] Jun 07, 2006 09:21 [facility] Aug 25, 2005 11:01 AM CURRENT TOBACCO USER [facility] Aug 25, 2005 11:01 AM TOBACCO CONTEMPLATION STAGE [facility] Oct 25, 2004 10:18 AM CURRENT NON-TOBACC O USER-HX OF USE [facility] Oct 25, 2004 10:18 AM TOBACCO TERMINATION STAGE [facility] Aug 24, 2003 10:43 AM CURRENT NON-TOBACC O USER-HX OF USE [facility] Aug 24, 2003 10:43 AM TOBACCO TERMINATION STAGE [facility] Aug 05, 2002 09:55 AM CURRENT NON-TOBACC O USER-HX OF USE QUIT [facility] Apr 15, 2001 08:28 AM CURRENT NON-TOBACC O USER-HX OF USE quit in 1979 [facility] Advance Directives: All historical and current Section Date Range: From patient's date of to the date document was created. This section includes ALL of a patient's completed or amended [place] Advance and Rescinded Directives. The entries below indicate that a directive exists for the patient, but an actual copy is not included with this document. The data comes from all [facility]. Date Advance Directives Provider Source Oct 19, 2023 ADVANCE DIRECTIVE LIDIAWANGBRIDGER KATHLEEN [facility] Dec 12, 2022 RESCINDED ADVANCE DIRECTIVE JITENDRA MEADOWS [facility] September 12, 2016 ADVANCE DIRECTIVE DISCUSSION YVETTE MEADOWS [facility] Encounter Notes: All associated encounter notes This section contains the clinical notes associated to the Encounter. Date/Time Encounter Note(s) Provider Source Apr 29, 2024 10:50 AM RN PROGRESS NOTE: LOCAL TITLE: CCC: CLINICAL TRIAGE STANDARD TITLE: RN PROGRESS NOTE DATE OF NOTE: APR 29, 2024@10:50:21 ENTRY DATE: APR 29, 2024@10:50:21 AUTHOR: SUKI MENJIVAR COSIGNER: URGENCY: STATUS: COMPLETED Patient Demographics Patient Name: JESUS ABRAHAM Patient Primary Address: [address] [place] [address] Patient Primary Phone: [phone] Patient : 1935 Patient Age: 88 Caller/Recipient Relation to Patient: Other If Other Describe Relation to Patient: Cassandra Caller Name: alecia Emergency Contact: CASSANDRA MEEKS Triage Summary Conducted triage/discussed symptoms Utilized the Triage Tool: Yes Chief Complaint: Congested Nose System WHEN: Now Nurse's Recommendation / WHEN: Now System WHERE: Emergency department Nurse's Recommendation / [facility] Patient Disposition Patient/Caregiver agrees to plan of care: No Patient WHERE[facility] Patient WHEN: Now Nursing Plan and Disposition Referred patient to higher level of care Provided location of Urgent Care Center Instructed to go to Emergency Room (ER) Other Other Description: tele-ec on pause Other course(s) of action Generated msg to PACT/Provider Nurse Summary Nurse Summary: and granddaughter called in requesting an order for a chest x-ray. granddaughter states that lives in a [facility] facility and they are requesting an order for a chest x-ray due to s/s of pneumonia. triaged and advised to go to ER for evaluation and tx. does not want to go to ER. granddaughter states she will take him to , advised that recommendation is for to go to ER. Clinical Contact Center Codes Clinic/Location: 5 ST PHONE CCC RN Decision Support System Output: Triage Complete Triage Date: 04/29/2024, 10:47 AM Triage Note: Decision Support Tool Used: [facility] Phone Triage 29 Apr 2024 16:38:57 +0000 [facility] Demographics 88 y/o Male Results CC: Congested Nose Software suggested: Now Software suggested follow-up location: Emergency department Values and Measures Duration of CC: 3 Weeks Positive Responses HPI: confusion, new or worsening HPI: cough, moderate to severe HPI: cough, new or worsening VS: respiratory rate not taken VS: temperature not taken Negative Responses Denies: HPI: cough, severe, onset within past 3 hours Denies: HPI: dyspnea, new or worsening Denies: HPI: sore throat IMPORTANT: This note was created by [facility] Clinical Contact Center staff. Please do not alert the staff member by adding them as a signer for future communications. Alerts are not monitored by this user. /manuel/ FERNIE DOYLE, LAB PACK CHEMIST NURSE Signed: 04/29/2024 10:50 Receipt Acknowledged By: 04/29/2024 11:17 /es/ AGUEDA DAWSON Registered Nurse 05/03/2024 11:51 /es/ MEAGHAN QUINTEROS MD STAFF PHYSICIAN SUKI MENJIVAR [facility]
--- OUTSIDE RECORDS SUMMARY | 2024-05-17 21:49 | XMS_ITS ---
Author Name [facility] [place] [facility] [place] [facility] [place] [facility] [place] Address [address] [place] [address] Care Team Providers Care Heel Shaver Name Role Phone MEAGHAN QUINTEROS Primary Care [...] PART A Aug 12, 2001 PART A [id number] BARRINGTONJESUS BUTT PATIENT MEDICARE (WNR) MEDICARE (M) PART B Aug 12, 2001 PART B [id number] JESUS ABRAHAM PATIENT Selected Encounter This section includes the information on record at [place] for the Encounter. Date/Time Encounter Type Encounter Description Reason Pro vider Source Apr 21, 2024 09:19 AM Outpatient Encounter ADMIN PAT ACTIVTIES (MASNONCT) I[facility] Encounter Template Text not used by [place] Plan of Treatment: Future Appointments (+ 6 [...] 20 appointments. The data comes from all [place] treatment facilities. Appointment Date/Time Appointment Type Appointme nt Facility Name May 15, 2024 11:00 AM AMBULATORY - SURGERY [facility] May 26, 2024 12:30 PM AMBULATORY - SURGERY [facility] Jul 02, 2024 02:30 PM AMBULATORY - MEDICINE [facility] Social History: Smoking Status (Most current) and Tobacco Use (All prior to encounter date) This section includes the most current, and the historical, smoking and tobacco- related health factors from the [place] facility where the Encounter took place. Current Smoking Status This section includes the most current smoking, or tobacco-related health factor, from the [place] facility where the Encounter took place. Date/Time Current Smoking Status Comment Dena ity Nov 23, 2023 11:30 AM VA-TOBACCO NEVER USED [facility] Tobacco Use History This section includes a history of the smoking, or tobacco-related health factors, that were collected on or before the date of the Encounter. The data comes from the [place] facility where the Encounter took place. Date/Time Smoking Status/Tobacco Use Comment F acility Nov 23, 2023 11:30 AM VA-TOBACCO NEVER USED [facility] Nov 23, 2023 11:30 AM VA-TOBACCO QUIT 15 YRS OR MORE [facility] Nov 14, 2023 01:18 AM ORYX ADMIT TOBACCO SCREEN NO [facility] Aug 04, 2022 11:30 AM VA-TOBACCO NEVER USED [facility] Mar 11, 2021 10:30 AM VA-TOBACCO FORMER USER [facility] Mar 11, 2021 10:30 AM VA-TOBACCO QUIT 15 YRS OR MORE [facility] Apr 19, 2018 09:07 AM VA-TOBACCO FORMER USER [facility] Apr 19, 2018 09:07 AM VA-TOBACCO QUIT 15 YRS OR MORE [facility] Jul 24, 2017 08:16 AM QUIT TOBACCO >7 YEARS AGO [facility] Apr 16, 2017 12:43 PM QUIT TOBACCO >7 YEARS AGO [facility] Feb 01, 2017 11:47 AM LIFETIME NON-USER OF TOBACCO [facility] Nov 15, 2016 09:00 AM QUIT TOBACCO >7 YEARS AGO [facility] September 11, 2016 06:27 PM QUIT TOBACCO >7 YEARS AGO [facility] Dec 09, 2015 10:17 AM QUIT TOBACCO >7 YEARS AGO [facility] Jan 05, 2015 08:22 AM CURRENT TOBACCO USER [facility] Jan 05, 2015 08:22 AM TOBACCO MEDS OFFER ED BUT DECLINED [facility] Mar 18, 2014 10:40 AM CURRENT TOBACCO USER [facility] Mar 18, 2014 10:40 AM TOBACCO MEDS OFFER ED BUT DECLINED [facility] Nov 04, 2013 09:40 AM CURRENT TOBACCO USER [facility] Nov 26, 2012 08:10 AM QUIT TOBACCO >7 YEARS AGO [facility] May 03, 2009 08:45 AM QUIT TOBACCO >7 YEARS AGO [facility] Jul 06, 2008 08:46 AM CURRENT TOBACCO USER [facility] Jul 25, 2007 12:30 PM QUIT TOBACCO >12 M O & <7 YRS AGO [facility] Jun 07, 2006 09:21 AM CURRENT TOBACCO USER [facility] Jun 07, 2006 09:21 [facility] Aug 25, 2005 11:01 AM CURRENT TOBACCO USER [facility] Aug 25, 2005 11:01 AM TOBACCO CONTEMPLATION STAGE [facility] Oct 25, 2004 10:18 AM CURRENT NON-TOBACC O USER-HX OF USE [facility] Oct 25, 2004 10:18 AM TOBACCO TERMINATION STAGE [facility] Aug 24, 2003 10:43 AM CURRENT NON-TOBACC O USER-HX OF USE [facility] Aug 24, 2003 10:43 AM TOBACCO TERMINATION STAGE [facility] Aug 05, 2002 09:55 AM CURRENT NON-TOBACC O USER-HX OF USE QUIT [facility] Apr 15, 2001 08:28 AM CURRENT NON-TOBACC O USER-HX OF USE quit in 1979 [facility] Advance Directives: All historical and current Section Date Range: From patient's date of to the date document was created. This section includes ALL of a patient's completed or amended [place] Advance and Rescinded Directives. The entries below indicate that a directive exists for the patient, but an actual copy is not included with this document. The data comes from all [place] facilities. Date Advance Directives Provider Source Oct 19, 2023 ADVANCE DIRECTIVE WANG MURILLO [facility] Dec 12, 2022 RESCINDED ADVANCE DIRECTIVE JITENDRA MEADOWS [facility] September 12, 2016 ADVANCE DIRECTIVE DISCUSSION YVETTE MEADOWS [facility] Encounter Notes: All associated encounter notes This section contains the clinical notes associated to the Encounter. Date/Time Encounter Note(s) Provider Source Apr 21, 2024 09:19 AM ADMINISTRATIVE NOT E: LOCAL TITLE: CONTACT NOTE STL STANDARD TITLE: ADMINISTRATIVE NOTE DATE OF NOTE: APR 21, 2024@09:19 ENTRY DATE: APR 21, 2024@09:19:23 AUTHOR: DELMY CROW COSIGNER: URGENCY: STATUS: COMPLETED CONTACT NOTE STL Has ADDENDA Veterans name and last 4 were used to verify identity Verified Veterans telephone #/Updated telephone number in the system REASON FOR CALL: Other: Reason for call: [phone] Sylvain RICHARDSON called requesting a call back from RNCM about papers that were faxed /manuel/ DELMY MESSINA [employer] Signed: 04/21/2024 09:20 Receipt Acknowledged By: 04/21/2024 09:27 /manuel/ AGUEDA DAWSON Registered Nurse 04/21/2024 ADDENDUM STATUS: COMPLETED RNCM called [phone] Sylvain RICHARDSON , inquiring about faxed paperwork, RNCM will alert PCP via TEAMS. /manuel/ AGUEDA DAWSON Registered Nurse Signed: 04/21/2024 09:29 DELMY CROW [facility]
--- OUTSIDE RECORDS SUMMARY | 2024-05-17 21:49 | XMS_ITS | Encounter Summary ---
Author Name [facility] [place] [place] [facility] [place] Address [address] [place] [address] Care Team Providers Care Oncology Radiation Physician Name Role Phone MEAGHAN QUINTEROS Primary Care [...] PART B Aug 12, 2001 PART B [id number] [phone] JESUS ABRAHAM PATIENT MEDICARE (WNR) MEDICARE (M) PART A Aug 12, 2001 PART A [id number] [phone] BARRINGTONJESUS BUTT PATIENT Selected Encounter This section includes the information on record at [place] for the Encounter. Date/Time Encounter Type Encounter Description Reason Provider Source Mar 03, 2024 09:15 AM OFFICE O/P EST LOW 20 MIN DERMATOLOGY ICD-10-CM L57.0 Actinic keratosis WARD BAPTISTE Encounter Template Text not used by [place] Assessments - Encounter Diagnoses This section includes the primary and secondary diagnoses documented for the Encounter. Date/Time Primary/Secondary Diagnosis Diagnosis Name Provider Source Mar 03, 2024 09:49 AM PRIMARY Actinic keratosis JUAN CARLOS SELF [facility] Mar 03, 2024 09:49 AM SECONDARY Other seborrheic keratosis JUAN CARLOS SELF [facility] Mar 03, 2024 09:49 AM SECONDARY Personal history of other malignant neoplasm of skin JUAN CARLOS SELF [facility] Plan of Treatment: Future Appointments (+ 6 months) and Future Tests (+/- 45 days) The Plan of Treatment section includes future care activities for the patient from all [place] treatmentfacilities. This section includes future appointments and future orders which are active, pending or scheduled. Future Appointments This section includes appointments that were scheduled to occur 6 months from the date of the Encounter, up to a maximum of 20 appointments. The data comes from all [place] treatment facilities. Appointment Date/Time Appointment Type Appointme nt Facility Name Mar 08, 2024 01:30 PM AMBULATORY - MEDICINE [facility] Mar 10, 2024 12:45 PM AMBULATORY - SURGERY [facility] Apr 16, 2024 11:00 AM AMBULATORY - REHAB MEDICIN E [facility] May 15, 2024 11:00 AM AMBULATORY - SURGERY [facility] May 26, 2024 12:30 PM AMBULATORY - SURGERY [facility] Jul 02, 2024 02:30 PM AMBULATORY - MEDICINE [facility] Lab Results: +/- 30 days of the encounter This section includes the Chemistry and Hematology Lab Results on record with [place] for the patient. Radiology Reports and Pathology Reports are provided separately, in subsequent sections. Lab Results This section contains the Chemistry/Hematology Results that were resulted 30 days before or 30 daysafter the date of the Encounter. Date/Time Source Result Type Result - Unit Interpretation Reference Range Comment Feb 29, 2024 02:17 PM [facility] HGA1C Specimen Type: BLOOD No comment entered. Ordering Provider: SA SHARI QUINTEROS Report Released Date/Time: Feb 28, 2024 09:05 AM Reporting Lab: [facility] [address] [facility] [address] Performing Lab: [place] [id number] [facility] [facility] [address] HGA1C 7.6 H 4.0-6.0 Feb 29, 2024 02:17 PM [facility] VITAMIN D, 25-HYDROXY Specimen Type: SERUM No comment entered. Ordering Provider: SA SHARI QUINTEROS Report Released Date/Time: Feb 28, 2024 09:05 AM Reporting Lab: [facility] [address] [facility] [address] Performing Lab: [facility] [address] [facility] [address] VITAMIN D, 25-HYDROXY 36.6 ng/mL 30-96 Feb 29, 2024 02:17 PM [facility] FERRITIN Specimen Type: SERUM No comment entered. Ordering Provider: SA SHARI QUINTEROS Report Released Date/Time: Feb 28, 2024 09:05 AM Reporting Lab: [facility] [address] [facility] [address] Performing Lab: [facility] [address] [place] [address] FERRITIN 227.48 ng/mL 22-275 Feb 29, 2024 02:17 PM [facility] IRON/TIBC PROFILE Specimen Type: SERUM No comment entered. Ordering Provider: SA SHARI QUINTEROS Report Released Date/Time: Feb 28, 2024 09:05 AM Reporting Lab: [facility] [address] [facility] [address] Performing Lab: [address] [address] TIBC 251 ug/dL 250-450 TRANSFERRIN 201 mg/dL 163-344 IRON SATURATION 14 L 20-50 IRON 35 ug/dL L 65-175 Feb 29, 2024 02:17 PM [facility] B12 Specimen Type: SERUM No comment entered. Ordering Provider: SA SHARI QUINTEROS Report Released Date/Time: Feb 29, 2024 02:14 PM Reporting Lab: [facility] [address] [facility] [address] Performing Lab: [facility] [address] [facility] [address] B12 305 pg/mL 213-816 Feb 29, 2024 02:17 PM [facility] RENAL PANEL Specimen Type: PLASMA Comment: No hemolysis noted. Ordering Provider: SA SHARI QUINTEROS Report Released Date/Time: Feb 28, 2024 09:05 AM Reporting Lab: [address] [address] Performing Lab: [address] [address] CREATININE 0.81 mg/dL 0.7-1.3 UREA NITROGEN 9.5 mg/dL 9.0-25.0 GLUCOSE 108 mg/dL H 72-99 SODIUM 135 meq/L L 136-145 POTASSIUM 4.4 meq/L 3.5-5 CHLORIDE 100 meq/L 98-107 CARBON DIOXIDE 24 meq/L 22-31 CALCIUM 9.2 mg/dL 8.4-10.4 PHOSPHOROUS 3.8 mg/dL 2.3-4.7 ALBUMIN 4.1 g/dL 3.4-5 EGFR (CKD-EPI 2020) 85.3 >60 Feb 29, 2024 02:17 PM [facility] CBC Specimen Type: BLOOD No comment entered. Ordering Provider: SA SHARI QUINTEROS Report Released Date/Time: Feb 28, 2024 09:05 AM Reporting Lab: [address] [address] Performing Lab: [address] [address] WBC 10.0 10*3/uL 3.6-11.2 RBC 4.36 10*6/uL 4.10-5.70 HGB 13.4 g/dL 13.1-16.8 HCT 39.8 38.2-48.4 MCV 91.3 fL 80.0-100.0 MCH 30.7 pg 27.0-34.0 MCHC 33.7 g/dL 33.0-36.0 PLT 334 10*3/uL 150-400 MPV 9.2 fL 7.5-11.2 RDW 13.6 11.8-15.1 NEUTROPHILS 66.1 MONOCYTES 9.6 EOSINOPHILS 1.7 BASOPHILS 1.7 PAPPENHEIMER BODIES 0 LYMPHOCYTES 11.3 ATYPICAL LYMPHOCYTES 9.6 PLT EST-CV ADEQUATE ADEQUATE NORMRBC Yes JESO#-IFF 0.17 10*3/uL 0.01-0.20 EO#-MDIFF 0.17 10*3/uL 0.00-0.60 MONO#-MDIFF 0.96 10*3/uL H 0.19-0.80 LYMPH#-MDIFF 2.09 10*3/uL 0.77-4.50 NEUT#-MDIFF 6.61 10*3/uL 2.10-8.00 Advance Directives: All historical and current Section Date Range: From patient's date of to the date document was created. This section includes ALL of a patient's completed or amended [place] Advance and Rescinded Directives. The entries below indicate that a directive exists for the patient, but an actual copy is not included with this document. The data comes from all [place] facilities. Date Advance Directives Provider Source Oct 19, 2023 ADVANCE DIRECTIVE WANG MURILLO [facility] Dec 12, 2022 RESCINDED ADVANCE DIRECTIVE JITENDRA MEADOWS [facility] September 12, 2016 ADVANCE DIRECTIVE DISCUSSION YVETTE MEADOWS [facility] Radiology Reports: +/- 30 days of [...] the Encounter. The data comes from all [place] treatment facilities. Date/Time Radiology Report Provider Source Mar 08, 2024 01:10 PM US CAROTID BILATER AL: JESUS ABRAHAM [id number] -[id number] M Exm Date: MAR 08, 2024@13:10 Req Phys: MEAGHAN QUINTEROS Loc: COM CARE-STL REHAB PT (Nevaq'g L Img Loc: HAL-ULTRASOUND HAL Service: Unknown [facility] [address] [place] [address] (Case [id number] COMPLETE) US CAROTID BILATERAL (US Detailed) CPT:36330 Reason for Study: TIA type symptoms evaluate for carotid stenosis Clinical History: Report Status: Verified Date Reported: MAR 10, 2024 Date Verified: MAR 10, 2024 Cloth Colorer E-Sig:/ES/AMBER HAMPTON Report: Case [id number]. Bilateral extracranial carotid ultrasound examination. Grayscale, spectral [...] of hemodynamically significant stenosis. Mynor Jaramillo MD ([employer]) I, Amber Hampton, have reviewed the images and report and concur with these findings. Primary Interpreting Staff: AMBER HAMPTON MD (Cloth Colorer) Primary Interpreting Resident: MYNOR JARAMILLO, Resident Physician /AMBER LYLE [facility] Encounter Notes: All associated encounter notes This section contains the clinical notes associated to the Encounter. Date/Time Encounter Note(s) Provider Source Mar 03, 2024 09:37 AM DERMATOLOGY NOTE: LOCAL TITLE: DERMATOLOGY NOTE STANDARD TITLE: DERMATOLOGY NOTE DATE OF NOTE: MAR 03, 2024@09:37 ENTRY DATE: MAR 03, 2024@09:37:33 AUTHOR: JUAN CARLOS SELF EXP COSIGNER: WARD BAPTISTE URGENCY: STATUS: COMPLETED DERMATOLOGY NOTE [facility] CC: FBSE given history of NMSC JESUS ABRAHAM is an 88 year old WHITE MALE with a history of NMSC (see below) and AKs s/p Efudex + calcipotriene that presents for FBSE. Concerns today: No new areas of concern. Occasionally has spots on his face that he scratches. 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 -BCC L NLF s/p MMS 12/2018 -BCC L upper arm s/p EDC 11/2020 Allergies: Patient has answered NKA ROS: no fever or chills PE: -Face, scalp, with gritty erythematous papules -[place] scaly papule at R infraorbital groove -Waxy brown papules with stuck-on appearance on the trunk and extremities, R episcopal -Trunk/extremities with scattered uniform colin-brown macules -WHSS at previous skin cancer sites OTHERWISE General Appearance: Well-appearing MALE, NAD Face: WNL Ears: WNL Scalp, Hair: WNL Neck: WNL Chest: WNL Abd: WNL Back: WNL Upper Extremities: WNL Lower Extremities: WNL Nails: WNL Mood/Affect: WNL A/P: #Actinic keratosis (es): -Nature of condition reviewed including small risk of transformation into skin cancer -Options of treatment reviewed prior to treatment including monitoring, cryotherapy/LN2, field therapy -Location: face, forehead, vertex scalp -Number treated: 7 -Patient elected for LN2 today to affected sites followed by efudex -LN2 x 7sec to all sites. SER including blistering, pain, recurrence, and scarring. - START Efudex x 14 days BID to face; SER skin irritation -Blister care reviewed #Seborrheic keratoses, trunk and extremities -Clinically benign appearing today -No treatment indicated #History of nonmelanoma skin cancer -NER on exam today -Methods of photoprotection reviewed -Signs of skin cancer discussed -Routine self-skin exams -Regular MD skin exams RTC 6 months prn /manuel/ JUAN CARLOS SELF MD DERMATOLOGY RESIDENT Signed: 03/03/2024 09:50 /manuel/ WARD BAPTISTE MD DERMATOLOGY & DERMATOPATHOLOGY Cosigned: 03/03/2024 10:16 03/03/2024 ADDENDUM STATUS: COMPLETED Reviewed documented history and physical examination and agree with assessment and plan. I was immediately available during entire visit and procedures. /manuel/ WARD BAPTISTE MD DERMATOLOGY & DERMATOPATHOLOGY Signed: 03/03/2024 10:17 JUAN CARLOS SELF [facility]
--- OUTSIDE RECORDS SUMMARY | 2024-05-17 21:49 | XMS_ITS | Encounter Summary ---
Author Name [facility] [place] [facility] [place] Address [address] [place] [address] Care Team Providers Care Local Delivery Driver Name Role Phone MEAGHAN QUINTEROS Primary Care [...] PART A Aug 12, 2001 PART A [id number] JESUS ABRAHAM PATIENT MEDICARE (WNR) MEDICARE (M) PART B Aug 12, 2001 PART B [id number] JESUS ABRAHAM PATIENT Selected Encounter This section includes the information on record at [place] for the Encounter. Date/Time Encounter Type Encounter Description Reason Provider Source Oct 15, 2023 02:04 PM CPTR OPHTH DX IMG POST SEGMT OPHTHALMOLOGY ICD-10-CM H35.322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, left eye, with actv chrdl neovas [place] SA M IHE Encounter Template Text not used by [facility] Assessments - Encounter Diagnoses This section includes the primary and secondary diagnoses documented for the Encounter. Date/Time Primary/Secondary Diagnosis Diagnosis Name Provider Source Feb 18, 2024 07:35 AM PRIMARY Exdtve age-rel mclr degn, left eye, with actv chrdl CALE Jalloh [facility] Plan of Treatment: Future Appointments (+ 6 months) and Future Tests (+/- 45 days) The Plan of Treatment section includes future care activities for the patient from all [place] treatmentfacilities. This section includes future appointments and future orders which are active, pending or scheduled. Future Appointments This section includes appointments that were scheduled to occur 6 months from the date of the Encounter, up to a maximum of 20 appointments. The data comes from all [place] treatment [facility]. Appointment Date/Time Appointment Type Appointme nt Facility Name Oct 18, 2023 10:20 AM AMBULATORY - MEDICINE [facility] Nov 13, 2023 02:03 PM AMBULATORY - MEDICINE [facility] Nov 23, 2023 09:00 AM AMBULATORY - MEDICINE [facility] Nov 23, 2023 10:00 AM AMBULATORY - MEDICINE [facility] Nov 23, 2023 11:30 AM AMBULATORY - MEDICINE [facility] Dec 24, 2023 02:45 PM AMBULATORY - SURGERY [facility] Jan 01, 2024 02:00 PM AMBULATORY - REHAB MEDICIN E [facility] Feb 29, 2024 01:30 PM AMBULATORY - MEDICINE [facility] Mar 03, 2024 09:15 AM AMBULATORY - MEDICINE [facility] Mar 08, 2024 01:30 PM AMBULATORY - MEDICINE [facility] Mar 10, 2024 12:45 PM AMBULATORY - SURGERY [facility] Active, Pending, and Scheduled Orders This section includes a listing of several types of active, pending, and scheduled orders, including clinic medications orders, diagnostic test orders, procedure orders and consult orders; where the start date of the order is 45 days before the date of the Encounter or 45 days after the date of theEncounter. The data comes from all [facility]. Test Date/Time Test Type Test Details Facility Name Nov 13, 2023 09:10 PM Laboratory - Chemi stry Order MRSA SURVL NARES DNA NARES WC [facility] Nov 21, 2023 12:00 AM Laboratory - Chemi stry Order VITAMIN D, 25-HYDROXY GOLD/RED SST SERUM SP [facility] Nov 21, 2023 12:00 AM Laboratory - Chemi stry Order HGA1C BLOOD SP [facility] Lab Results: +/- 30 days of the encounter This section includes the Chemistry and Hematology Lab Results on record with [place] for the patient. Radiology Reports and Pathology Reports are provided separately, in subsequent sections. Lab Results This section contains the Chemistry/Hematology Results that were resulted 30 days before or 30 daysafter the date of the Encounter. Date/Time Source Result Type Result - Unit Interpretation Reference Range Comment Nov 14, 2023 05:33 AM [facility] PHOSPHOROUS Specimen Type: PLASMA Comment: No hemolysis noted. Ordering Provider: NAYLA DUNN Report Released Date/Time: Nov 14, 2023 04:23 AM Reporting Lab: [facility] [address] [facility] [address] Performing Lab: [facility] [address] [facility] [address] PHOSPHOROUS 2.9 mg/dL 2.3-4.7 Nov 14, 2023 05:33 AM [facility] MAGNESIUM Specimen Type: PLASMA Comment: No hemolysis noted. Ordering Provider: NAYLA DUNN Report Released Date/Time: Nov 14, 2023 04:23 AM Reporting Lab: [facility] [address] [facility] [address] Performing Lab: [facility] [address] [facility] [address] MAGNESIUM 2.1 mg/dL 1.6-2.6 Nov 14, 2023 05:33 AM [facility] TSH W/ REFLEX FT4 (STL) Specimen Type: PLASMA No comment entered. Ordering Provider: NAYLA DUNN Report Released Date/Time: Nov 14, 2023 04:23 AM Reporting Lab: [place] [id number] [facility] [address] Performing Lab: [address] [address] TSH 3.546 u[IU]/mL 0.47-5 Nov 14, 2023 05:33 AM [facility] CBC Specimen Type: BLOOD Comment: Manual diff performed on 11/13/23 Ordering Provider: NAYLA DUNN Report Released Date/Time: Nov 14, 2023 04:23 AM Reporting Lab: [address] [address] Performing Lab: [address] [address] WBC 12.8 10*3/uL H 3.6-11.2 RBC 3.87 10*6/uL L 4.10-5.70 HGB 11.9 g/dL L 13.1-16.8 HCT 35.7 L 38.2-48.4 MCV 92.2 fL 80.0-100.0 MCH 30.7 pg 27.0-34.0 MCHC 33.3 g/dL 33.0-36.0 PLT 407 10*3/uL H 150-400 MPV 9.3 fL 7.5-11.2 RDW 13.8 11.8-15.1 LYMPHOCYTES, AUTO % 23 MONOCYTES, AUTO % 12 NEUTROPHILS, AUTO % 62 EOSINOPHILS, AUTO % 3 BASOPHILS, AUTO % 1 LYMPHOCYTES, ABSOLUTE 2.87 10*3/uL 0.77-4.50 MONOCYTES, ABSOLUTE 1.51 10*3/uL H 0.19-0.80 NEUTROPHILS, ABSOLUTE 7.89 10*3/uL 2.10-8.00 EOSINOPHILS, ABSOLUTE 0.38 10*3/uL 0.00-0.60 BASOPHILS, ABSOLUTE 0.07 10*3/uL 0.00-0.20 Nov 14, 2023 05:33 AM [facility] BASIC METABOLIC PANEL Specimen Type: PLASMA Comment: No hemolysis noted. Ordering Provider: NAYLA DUNN Report Released Date/Time: Nov 14, 2023 04:23 AM Reporting Lab: [address] [address] Performing Lab: [address] [address] CREATININE 0.78 mg/dL 0.7-1.3 UREA NITROGEN 12.0 mg/dL 9.0-25.0 GLUCOSE 83 mg/dL 72-99 SODIUM 136 meq/L 136-145 POTASSIUM 4.4 meq/L 3.5-5 CHLORIDE 103 meq/L 98-107 CARBON DIOXIDE 26 meq/L 22-31 CALCIUM 8.8 mg/dL 8.4-10.4 EGFR (CKD-EPI 2020) 86.3 >60 Nov 14, 2023 01:30 AM [facility] TROPONIN I Specimen Type: PLASMA No comment entered. Ordering Provider: NAYLA DUNN Report Released Date/Time: Nov 14, 2023 01:10 AM Reporting Lab: [address] [address] Performing Lab: [address] [address] TROPONIN I 0.044 ng/mL H 0-0.033 Nov 13, 2023 10:00 PM [facility] MRSA SURVL NARES DNA Specimen Type: NARES Comment: Qualitative real-time PCR test for the rapid detection of methicillin-resis tant Staphylococcus aureus (MRSA) DNA from nasal swabs. A negative result does not preclude infection with the agent(s) tested and should not be used as the sole basis for treatment or other patient management decisions. A positive test does not necessarily indicate the presence of viable organisms, following bacterial culture to recover the organism for further characterization and susceptibility testing. All results must be combined with clinical observations, patient history, and epidemiological information for final interpretation. Ordering Provider: NAYLA DUNN Report Released Date/Time: Nov 13, 2023 09:10 PM Reporting Lab: [address] [address] Performing Lab: [address] [address] MRSA SURVL NARES DNA Negative Negative Nov 13, 2023 07:10 PM [facility] TROPONIN I Specimen Type: PLASMA No comment entered. Ordering Provider: CYRUS EVANS Report Released Date/Time: Nov 13, 2023 06:56 PM Reporting Lab: [address] [address] Performing Lab: [address] [address] TROPONIN I 0.045 ng/mL H 0-0.033 Nov 13, 2023 06:20 PM [facility] BLOOD GAS PANEL ABG (L) Specimen Type: VENOUS BLOOD Comment: Test Performed by: [id number] Meter #: [id number] Ordering Provider: CYRUS EVANS Report Released Date/Time: Nov 13, 2023 06:20 PM Reporting Lab: [address] [address] Performing Lab: [place] [address] [facility] [address] GEM PH 7.38 7.31-7.41 GEM PCO2 52 mm[Hg] 41-51 GEM PO2 30 mm[Hg] 25-48 GEM SODIUM 131 mmol/L 136-145 GEM POTASSIUM 4.7 mmol/L 3.5-5.0 GEM CHLORIDE 99 mmol/L 98-107 GEM IONIZED CA 1.21 mmol/L 1.09-1.30 GEM HCT 45 38-48 GEM THB 13.7 g/dL 13.1-16.8 GEM 02HB 37.9 60.0-85.0 GEM COHB 0.4 See Interp GEM METHB 0.8 <1.9 GEM GLUCOSE 116 mg/dL 72-99 GEM LACTATE 1.4 mmol/L 0.9-2.0 GEM SO2 38.3 68.0-77.0 GEM CHCO3 30.8 mmol/L 20.0-26.0 GEM BASE EXCESS 4.4 mmol/L -2.5-2.5 GEM FIO2 21.0 GEM PT. TEMP 37.0 Nov 13, 2023 06:15 PM [facility] COVID-19 DIAGNOSTIC (FLU/RSV)(STL) Specimen Type: NASOPHARYNX Comment: Qualitative real-time PCR and RT-PCR to detect viral RNA. A negative result does not preclude infection with the agent(s) tested and should not be used as the sole basis for treatment or other patient management decisions. If negative, but symptoms persist, consider re-testing. Positive results do not rule out bacterial infection or co-infection with other viruses. All results must be combined with clinical observations, patient history, and epidemiological information for final interpretation. Ordering Provider: CYRUS EVANS Report Released Date/Time: Nov 13, 2023 03:21 PM Reporting Lab: [address] [address] Performing Lab: [address] [address] INFLUENZA A Negative Negative INFLUENZA B Negative Negative COVID-19 (L-PB) Not Detected Not Detected RSV (Cepheid) NEGATIVE Negative Nov 13, 2023 06:00 PM [facility] APTT Specimen Type: PLASMA No comment entered. Ordering Provider: CYRUS EVANS Report Released Date/Time: Nov 13, 2023 03:21 PM Reporting Lab: [address] [address] Performing Lab: [address] [address] APTT 33.7 s 26.7-39.9 Nov 13, 2023 06:00 PM [facility] PT/INR NEW ([facility]) Specimen Type: PLASMA No comment entered. Ordering Provider: CYRUS EVANS Report Released Date/Time: Nov 13, 2023 03:21 PM Reporting Lab: [place] [address] [facility] [address] Performing Lab: [address] [address] PROTIME 12.7 s H 9.4-12.5 INR VALUE 1.1 {INR} Nov 13, 2023 04:59 PM [facility] URINALYSIS W/ CX REFLEX (L-PB) Specimen Type: URINE No comment entered. Ordering Provider: CYRUS EVANS Report Released Date/Time: Nov 13, 2023 03:12 PM Reporting Lab: [facility] [address] [place], [place] [address] Performing Lab: [facility] [address] [facility] [address] URINE COLOR Yellow Yellow U.BILIRUBIN Negative mg/dL Negative U.PH 6.0 5.0-8.0 URINE WBC/HPF 2 /[HPF] 0-5 URINE RBC/HPF 1 /[HPF] 0-5 APPEARANCE Clear Clear U.NITRITE Negative mg/dL Negative MUCUS RARE /[LPF] Negative -R are HYALINE CASTS 7 /[LPF] 0-5 URN.GLUCOSE Normal mg/dL Negative URN.PROTEIN 30 mg/dL H Negative -2 0 URN.UROBILINOGE N Normal mg/dL Normal URN.BLOOD Negative mg/dL Negat clem-T race URN.KETONES Trace mg/dL Negati ve-T race URN.LEUK.EST. Negative mg/dL N egative-T race URN.SPECIFIC GRAVITY 1.026 1.005-1.02 9 Nov 13, 2023 02:20 PM [facility] TROPONIN I Specimen Type: PLASMA Comment: No hemolysis noted. Ordering Provider: CYRUS EVANS Report Released Date/Time: Nov 13, 2023 02:14 PM Reporting Lab: [address] [address] Performing Lab: [address] [address] TROPONIN I 0.044 ng/mL H 0-0.033 Nov 13, 2023 02:20 PM [facility] CBC Specimen Type: BLOOD No comment entered. Ordering Provider: CYRUS EVANS Report Released Date/Time: Nov 13, 2023 02:14 PM Reporting Lab: [address] [address] Performing Lab: [address] [address] WBC 12.5 10*3/uL H 3.6-11.2 RBC 4.21 10*6/uL 4.10-5.70 HGB 12.7 g/dL L 13.1-16.8 HCT 37.7 L 38.2-48.4 MCV 89.5 fL 80.0-100.0 MCH 30.2 pg 27.0-34.0 MCHC 33.7 g/dL 33.0-36.0 PLT 457 10*3/uL H 150-400 MPV 9.0 fL 7.5-11.2 RDW 13.5 11.8-15.1 NEUTROPHILS 72.2 MONOCYTES 8.7 EOSINOPHILS 2.6 BASOPHILS 0.9 POIKILOCYTOSIS 1+ PAPPENHEIMER BODIES 0 LYMPHOCYTES 15.6 PLT EST-CV INCREASED ADEQUATE BASO#-MDIFF 0.11 10*3/uL 0.01-0.20 EO#-MDIFF 0.33 10*3/uL 0.00-0.60 MONO#-MDIFF 1.09 10*3/uL H 0.19-0.80 LYMPH#-MDIFF 1.95 10*3/uL 0.77-4.50 NEUT#-MDIFF 9.03 10*3/uL H 2.10-8.00 Nov 13, 2023 02:20 PM [facility] COMPREHENSIVE METABOLIC PANEL Specimen Type: PLASMA Comment: No hemolysis noted. Ordering Provider: CYRUS EVANS Report Released Date/Time: Nov 13, 2023 02:14 PM Reporting Lab: [facility] [address] [facility] [address] Performing Lab: [address] [address] CREATININE 1.17 mg/dL 0.7-1.3 UREA NITROGEN 12.7 mg/dL 9.0-25.0 GLUCOSE 132 mg/dL H 72-99 SODIUM 134 meq/L L 136-145 POTASSIUM 4.5 meq/L 3.5-5 CHLORIDE 102 meq/L 98-107 CARBON DIOXIDE 21 meq/L L 22-31 CALCIUM 9.1 mg/dL 8.4-10.4 PROTEIN 7.1 g/dL 6-8.6 ALBUMIN 3.7 g/dL 3.4-5 TOTAL BILIRUBIN 0.3 mg/dL 0.2-1.2 ALKALINE PHOSPHATASE 71 U/L 40-150 AST/SGOT 25 U/L 5-34 ALT/SGPT 34 U/L 8-40 EGFR (CKD-EPI 2020) 60.3 >60 Social History: Smoking Status (Most current) and Tobacco Use (All prior to encounter date) This section includes the most current, and the historical, smoking and tobacco- related health factors from the [place] facility where the Encounter took place. Current Smoking Status This section includes the most current smoking, or tobacco-related health factor, from the [place] facility where the Encounter took place. Date/Time Current Smoking Status Comment Dena ity Aug 04, 2022 11:30 AM VA-TOBACCO NEVER USED [facility] Tobacco Use History This section includes a history of the smoking, or tobacco-related health factors, that were collected on or before the date of the Encounter. The data comes from the [place] facility where the Encounter took place. Date/Time Smoking Status/Tobacco Use Comment Lynnette acility Mar 11, 2021 10:30 AM VA-TOBACCO FORMER USER [facility] Mar 11, 2021 10:30 AM VA-TOBACCO QUIT 15 YRS OR MORE [facility] Apr 19, 2018 09:07 AM VA-TOBACCO FORMER USER [facility] Apr 19, 2018 09:07 AM VA-TOBACCO QUIT 15 YRS OR MORE [facility] Jul 24, 2017 08:16 AM QUIT TOBACCO >7 YEARS AGO [facility] Apr 16, 2017 12:43 PM QUIT TOBACCO >7 YEARS AGO [facility] Feb 01, 2017 11:47 AM LIFETIME NON-USER OF TOBACCO [facility] Nov 15, 2016 09:00 AM QUIT TOBACCO >7 YEARS AGO [facility] September 11, 2016 06:27 PM QUIT TOBACCO >7 YEARS AGO [facility] Dec 09, 2015 10:17 AM QUIT TOBACCO >7 YEARS AGO [facility] Jan 05, 2015 08:22 AM CURRENT TOBACCO USER [facility] Jan 05, 2015 08:22 AM TOBACCO MEDS OFFER ED BUT DECLINED [facility] Mar 18, 2014 10:40 AM CURRENT TOBACCO USER [facility] Mar 18, 2014 10:40 AM TOBACCO MEDS OFFER ED BUT DECLINED [facility] Nov 04, 2013 09:40 AM CURRENT TOBACCO USER [facility] Nov 26, 2012 08:10 AM QUIT TOBACCO >7 YEARS AGO [facility] May 03, 2009 08:45 AM QUIT TOBACCO >7 YEARS AGO [facility] Jul 06, 2008 08:46 AM CURRENT TOBACCO USER [facility] Jul 25, 2007 12:30 PM QUIT TOBACCO >12 M O & <7 YRS AGO [facility] Jun 07, 2006 09:21 AM CURRENT TOBACCO USER [facility] Jun 07, 2006 09:21 AM TOBACCO [facility] Aug 25, 2005 11:01 AM CURRENT TOBACCO USER [facility] Aug 25, 2005 11:01 AM TOBACCO CONTEMPLATION STAGE [facility] Oct 25, 2004 10:18 AM CURRENT NON-TOBACC O USER-HX OF USE [facility] Oct 25, 2004 10:18 AM TOBACCO TERMINATION STAGE [facility] Aug 24, 2003 10:43 AM CURRENT NON-TOBACC O USER-HX OF USE [facility] Aug 24, 2003 10:43 AM TOBACCO TERMINATION STAGE [facility] Aug 05, 2002 09:55 AM CURRENT NON-TOBACC O USER-HX OF USE QUIT [facility] Apr 15, 2001 08:28 AM CURRENT NON-TOBACC O USER-HX OF USE quit in 1979 [facility] Advance Directives: All historical and current Section Date Range: From patient's date of to the date document was created. This section includes ALL of a patient's completed or amended [place] Advance and Rescinded Directives. The entries below indicate that a directive exists for the patient, but an actual copy is not included with this document. The data comes from all [place] facilities. Date Advance Directives Provider Source Oct 19, 20[address] [facility] Dec 12, 2022 RESCINDED ADVANCE DIRECTIVE JITENDRA MEADOWS [facility] September 12, 2016 ADVANCE DIRECTIVE DISCUSSION YVETTE MEADOWS [facility] Radiology Reports: +/- 30 days of [...] the Encounter. The data comes from all [place] treatment facilities. Date/Time Radiology Report Provider Source Nov 13, 2023 04:[address] HEAD W/O CONT: JESUS ABRAHAM [id number] -[id number] M Exm Date: NOV 13, 2023@16:07 Req Phys: CYRUS EVANS Loc: [facility]-EMERGENCY DEPT 2ND SHIFT (R Img Loc: [facility]-CT IMAGING [facility] Service: Unknown [facility] [address] [place] [address] (Case [id number] COMPLETE) CT HEAD W/O CONT (CT Detailed) CPT:23659 Reason for Study: confusion Clinical History: Responsible Attending: cyrus evans Attending Contact Number: [phone] Resident Contact Number: Allergies listed in CPRS chart: Patient has answered NKA Creatinine: CREATININE 1.17 mg/dL 11/13/2023 14:20 /eGFR: STL EGFR (within one year). CREATININE 1.17 mg/dL (11/13/23 14:20) Wt: 189.3 lb [85.87 kg] (10/18/2023 10:32) History of: Renal failure, chronic or acute renal disease: NO Report Status: Verified Date Reported: NOV 13, 2023 Date Verified: NOV 13, 2023 Equipment Records Supervisor E-Sig: Report: CT HEAD W/O CONT HISTORY: confusion COMPARISON: CT head 06/11/2019 TECHNIQUE: Contiguous axial CT images from the level of the skull base through the skull apex, performed at the local [place] facility. 269 images were received by the [place] [facility] ([facility]P) for interpretation. RADIATION DOSE (mGy*cm): 772 IV CONTRAST: None administered. FINDINGS: Brain Parenchyma: No acute hemorrhage or large vessel infarction. Severe periventricular and subcortical white matter hypodensities, nonspecific but likely a sequela of small vessel ischemic disease. Mild global cerebral volume loss. 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 Extraaxial Spaces: Concordant with degree of volume loss. Cerebral Vasculature: Moderate intracranial atherosclerosis. Orbits: Bilateral lens replacements. Sinuses: Visualized paranasal sinuses are well-aerated. Calvarium and Skull Base: No acute fracture or traumatic malalignment. Scalp: Soft tissues are within normal limits. Impression: 1. Severe periventricular white matter disease, which limits evaluation for detection of underlying infarct. Within these limitations no acute hemorrhage or large vessel infarction. If there is ongoing clinical concern, consider MRI. READING PHYSICIAN: Anjum [id number] 11/13/2023 15:14 PDT [facility] [employer] [facility] [phone] (For Medical Practitioner Use Only) Attention Patients / Veterans: If you have questions or concerns about these test results, please contact your ordering provider or primary care team. Primary Interpreting Staff: RADIOLOGY,OUTSIDE SERVICE, Staff Physician / RADIOLOGY,OUTSIDE SERVICE [facility] Nov 13, 2023 03:59 PM CHEST X-RAY, 2 VIEWS: JESUS ABRAHAM [id number] -1935 M Exm Date: NOV 13, 2023@15:59 Req Phys: CYRUS EVANS Loc: -EMERGENCY DEPT 2ND SHIFT (R Img Loc: -MAIN RADIOLOGY SUITE Service: [facility] [address] [place] [address] (Case [id number] COMPLETE) CHEST X-RAY, 2 VIEWS (RAD Detailed) CPT:83465 Reason for Study: chest pain Clinical History: Report Status: Verified Date Reported: NOV 13, 2023 Date Verified: NOV 13, 2023 Equipment Records Supervisor E-Sig:/ES/CATHY LIPSCOMB Report: INDICATION: chest pain COMPARISON: None TECHNIQUE: Chest 2 views Impression: No large pleural effusion or sizable pneumothorax. No new focal consolidation. Unchanged cardiomediastinal silhouette. Primary Interpreting Staff: CATHY LIPSCOMB, RADIOLOGIST (Equipment Records Supervisor) /CATHY HOOVER [facility] Pathology Reports: +/- 30 days of the encounter Pathology Reports For cases when an order for pathology services may have been completed prior to the date of the Encounter, the report list includes the Pathology Reports that were completed up to 30 days before dateof the Encounter. For cases when an order for pathology services may have been completed after the date of the Encounter, the report list also includes the Pathology Reports that were completed up to30 days after date of the Encounter. The data comes from all [facility] facilities. Date/Time Pathology Report Provider Source Nov 13, 2023 06:10 PM LR MICROBIOLOGY RE PORT: Accession [UID]: [id number] [[id number]] Received: Nov 13, 2023@18:22 Collection sample: B D BLD. BOTTLE (SET 2)Collection date: Nov 13, 2023 18:10 Site/Specimen: BLOOD Provider: CYRUS EVANS Test(s) ordered: BLOOD CULT (SET 2)............ completed: Nov 20, 2023 16:22 * BACTERIOLOGY FINAL REPORT => Nov 20, 2023 16:24 TECH CODE: [id number] Bacteriology Remark(s): CULTURE IS NEGATIVE TO DATE, ALL POSITIVES ARE ROUTINELY CALLED. KASEY PW 11/20/23 CULTURE SHOWS NO GROWTH IN 6 DAYS. =--=--=--=--=--=--=--=--=--=- -=--=--=--=--=--=--=--=--=--= --=--=--=--=--=--=-- Performing Laboratory: Bacteriology Report Performed By: [facility] [address] [facility] CLIA# [id number] [address] [place] [id number] [facility] Nov 13, 2023 06:05 PM LR MICROBIOLOGY RE PORT: Accession [UID]: [id number] [[id number]] Received: Nov 13, 2023@18:23 Collection sample: B D BLD. BOTTLE Collection date: Nov 13, 2023 18:05 Site/Specimen: BLOOD Provider: CYRUS EVANS Test(s) ordered: BLOOD CULT (SET 1)............ completed: Nov 20, 2023 16:20 * BACTERIOLOGY FINAL REPORT => Nov 20, 2023 16:24 TECH CODE: 864 Bacteriology Remark(s): CULTURE IS NEGATIVE TO DATE, ALL POSITIVES ARE ROUTINELY CALLED. KASEY PW 11/20/23 CULTURE SHOWS NO GROWTH IN 6 DAYS. =--=--=--=--=--=--=--=--=--=- -=--=--=--=--=--=--=--=--=--= --=--=--=--=--=--=-- Performing Laboratory: Bacteriology Report [facility] By: [facility] [address] [place] [address]# [id number] [address] [place] [id number] [facility] Encounter Notes: All associated encounter notes This section contains the clinical notes associated to the Encounter. Date/Time Encounter Note(s) Provider Source Oct 15, 2023 02:04 PM OPHTHALMOLOGY NOTE : LOCAL TITLE: OPHTHALMOLOGY NOTE [facility] STANDARD TITLE: OPHTHALMOLOGY NOTE DATE OF NOTE: OCT 15, 2023@14:04 ENTRY DATE: OCT 15, 2023@14:04:16 AUTHOR: DAVION FIGUEROA EXP COSIGNER: URGENCY: STATUS: COMPLETED OCT complete OU ([place]) Results located in Forum for provider review OPTHALMIC MEDICATIONS ADMINISTERED @ 8356 TONOPEN: RT- 24 LT- 23 Dilation Ophthetic 0.5% one drop Both eyes Tropicamide 1% one drop Both eyes Phenylephrine 2.5% one drop Both eyes /es/ DAVION FIGUEROA Blue Print Control Clerk Signed: 10/15/2023 14:08 DAVION FIGUEROA [facility]
--- OUTSIDE RECORDS SUMMARY | 2024-05-17 21:50 | XMS_ITS | Encounter Summary ---
Author Name [facility] Organization [facility] Address [address] [place] [address] Care Team Providers Care Waiter/Waitress First Class Name Role Phone MEAGHAN QUINTEROS Primary Care [...] PART A Aug 12, 2001 PART A [id number] [phone] TOBIDANAYJESUS BUTT PATIENT MEDICARE (WNR) MEDICARE (M) PART B Aug 12, 2001 PART B [id number] [phone] JESUS ABRAHAM PATIENT Selected Encounter This section includes the information on record at [place] for the Encounter. Date/Time Encounter Type Encounter Description Reason Provider Source Nov 28, 2023 09:00 AM HC PRO PHONE CALL 21-30 MIN TELEPHONE PRIMARY CARE ICD-10-CM Z71.0 Prsn encntr hlth serv to consult on behalf of another person OLAMIDE PARKER IHOlesya Encounter Template Text not used by [place] Assessments - Encounter Diagnoses This section includes the primary and secondary diagnoses documented for the Encounter. Date/Time Primary/Secondary Diagnosis Diagnosis Name Provider Source Nov 28, 2023 09:00 AM PRIMARY Prsn encntr hlth serv to consult on behalf of another person JOVITA PARKER [facility] Plan of Treatment: Future Appointments (+ 6 months) and Future Tests (+/- 45 days) The Plan of Treatment section includes future care activities for the patient from all [place] [facility] This section includes future appointments and future orders which are active, pending or scheduled. Future Appointments This section includes appointments that were scheduled to occur 6 months from the date of the Encounter, up to a maximum of 20 appointments. The data comes from all [facility]. Appointment Date/Time Appointment Type Appointme nt Facility Name Dec 24, 2023 02:45 PM AMBULATORY - SURGERY [facility] Jan 01, 2024 02:00 PM AMBULATORY - REHAB MEDICIN E [facility] Feb 29, 2024 01:30 PM AMBULATORY - MEDICINE [facility] Mar 03, 2024 09:15 AM AMBULATORY - MEDICINE [facility] Mar 08, 2024 01:30 PM AMBULATORY - MEDICINE [facility] Mar 10, 2024 12:45 PM AMBULATORY - SURGERY [facility] Apr 16, 2024 11:00 AM AMBULATORY - REHAB MEDICIN E [facility] May 15, 2024 11:00 AM AMBULATORY - SURGERY [facility] May 26, 2024 12:30 PM AMBULATORY - SURGERY [facility] Active, Pending, and Scheduled Orders This section includes a listing of several types of active, pending, and scheduled orders, including clinic medications orders, diagnostic test orders, procedure orders and consult orders; where the start date of the order is 45 days before the date of the Encounter or 45 days after the date of theEncounter. The data comes from all [facility]. Test Date/Time Test Type Test Details Facility Name Nov 13, 2023 09:10 PM Laboratory - Chemi stry Order MRSA SURVL NARES DNA NARES WC [facility] Nov 21, 2023 12:00 AM Laboratory - Chemi stry Order HGA1C BLOOD SP [facility] Nov 21, 2023 12:00 AM Laboratory - Chemi stry Order VITAMIN D, 25-HYDROXY GOLD/RED SST SERUM SP [facility] Lab Results: +/- 30 days of the encounter This section includes the Chemistry and Hematology Lab Results on record with [place] for the patient. Radiology Reports and Pathology Reports are provided separately, in subsequent sections. Lab Results This section contains the Chemistry/Hematology Results that were resulted 30 days before or 30 daysafter the date of the Encounter. Date/Time Source Result Type Result - Unit Interpretation Reference Range Comment Nov 14, 2023 05:33 AM [facility] TSH W/ REFLEX FT4 (STL) Specimen Type: PLASMA No comment entered. Ordering Provider: NAYLA DUNN Report Released Date/Time: Nov 14, 2023 04:23 AM Reporting Lab: [facility] [address] [facility] [address] Performing Lab: [address] [address] TSH 3.546 u[IU]/mL 0.47-5 Nov 14, 2023 05:33 AM [facility] PHOSPHOROUS Specimen Type: PLASMA Comment: No hemolysis noted. Ordering Provider: NAYLA DUNN Report Released Date/Time: Nov 14, 2023 04:23 AM Reporting Lab: [facility] [address] [facility] [address] Performing Lab: [facility] [address] [place] [phone] PHOSPHOROUS 2.9 mg/dL 2.3-4.7 Nov 14, 2023 05:33 AM [facility] MAGNESIUM Specimen Type: PLASMA Comment: No hemolysis noted. Ordering Provider: NAYLA DUNN Report Released Date/Time: Nov 14, 2023 04:23 AM Reporting Lab: [facility] [address] [place] [phone] Performing Lab: [facility] [address] [place] [phone] MAGNESIUM 2.1 mg/dL 1.6-2.6 Nov 14, 2023 05:33 AM [facility] CBC Specimen Type: BLOOD Comment: Manual diff performed on 11/13/23 Ordering Provider: NAYAL DUNN Report Released Date/Time: Nov 14, 2023 04:23 AM Reporting Lab: [address] [address] Performing Lab: [address] [address] WBC 12.8 10*3/uL H 3.6-11.2 RBC 3.87 [...] 10*3/uL 0.00-0.20 Nov 14, 2023 05:33 AM [facility] BASIC METABOLIC PANEL Specimen Type: PLASMA Comment: No hemolysis noted. Ordering Provider: NAYLA DUNN Report Released Date/Time: Nov 14, 2023 04:23 AM Reporting Lab: [place] [address] [facility] [address] Performing Lab: [address] [address] CREATININE 0.78 mg/dL 0.7-1.3 UREA NITROGEN 12.0 mg/dL 9.0-25.0 GLUCOSE 83 mg/dL 72-99 SODIUM 136 meq/L 136-145 POTASSIUM 4.4 meq/L 3.5-5 CHLORIDE 103 meq/L 98-107 CARBON DIOXIDE 26 meq/L 22-31 CALCIUM 8.8 mg/dL 8.4-10.4 EGFR (CKD-EPI 2020) 86.3 >60 Nov 14, 2023 01:30 AM [facility] TROPONIN I Specimen Type: PLASMA No comment entered. Ordering Provider: NAYLA DUNN Report Released Date/Time: Nov 14, 2023 01:10 AM Reporting Lab: [facility] [address] [facility] [address] Performing Lab: [address] [address] TROPONIN I 0.044 ng/mL H 0-0.033 Nov 13, 2023 10:00 PM [facility] MRSA SURVL NARES DNA Specimen Type: [...] Nov 13, 2023 09:10 PM Reporting Lab: [facility] [address] [facility] [address] Performing Lab: [address] [address] MRSA SURVL NARES DNA Negative Negative Nov 13, 2023 07:10 PM [facility] TROPONIN I Specimen Type: PLASMA No comment entered. Ordering Provider: CYRUS EVANS Report Released Date/Time: Nov 13, 2023 06:56 PM Reporting Lab: [facility] [address] [place] [phone] Performing Lab: [facility] [address] [facility] [address] TROPONIN I 0.045 ng/mL H 0-0.033 Nov 13, 2023 06:20 PM [facility] BLOOD GAS PANEL ABG ([facility]) Specimen Type: VENOUS BLOOD Comment: Test Performed by: [id number] Meter #: [id number] Ordering Provider: CYRUS EVANS Report Released Date/Time: Nov 13, 2023 06:20 PM Reporting Lab: [facility] [address] [facility] [address] Performing Lab: [place] [address] [facility] [address] GEM PH 7.38 7.31-7.41 GEM PCO2 52 [...] TEMP 37.0 Nov 13, 2023 06:15 PM [facility] COVID-19 DIAGNOSTIC (FLU/RSV)([facility]) Specimen Type: NASOPHARYNX Comment: Qualitative real-time PCR [...] Nov 13, 2023 03:21 PM Reporting Lab: [facility] [address] [facility] [address] Performing Lab: [facility] [address] [place] [phone] INFLUENZA A Negative Negative INFLUENZA B Negative Negative COVID-19 (STL-PB) Not Detected Not Detected RSV (Cepheid) NEGATIVE Negative Nov 13, 2023 06:00 PM [facility] APTT Specimen Type: PLASMA No comment entered. Ordering Provider: CYRUS EVANS Report Released Date/Time: Nov 13, 2023 03:21 PM Reporting Lab: [facility] [address] [place] [phone] Performing Lab: [address] [address] APTT 33.7 s 26.7-39.9 Nov 13, 2023 06:00 PM [facility] PT/INR NEW (L-MA) Specimen Type: PLASMA No comment entered. Ordering Provider: CYRUS EVANS Report Released Date/Time: Nov 13, 2023 03:21 PM Reporting Lab: [facility] [address] [place] [phone] Performing Lab: [facility] [address] [place] [phone] PROTIME 12.7 s H 9.4-12.5 INR VALUE 1.1 {INR} Nov 13, 2023 04:59 PM [facility] URINALYSIS W/ CX REFLEX (L-PB) Specimen Type: URINE No comment entered. Ordering Provider: CYRUS EVANS Report Released Date/Time: Nov 13, 2023 03:12 PM Reporting Lab: [facility] [address] [place] [phone] Performing Lab: [facility] [address] [place] [phone] URINE COLOR Yellow Yellow U.BILIRUBIN Negative mg/dL [...] 1.005-1.02 9 Nov 13, 2023 02:20 PM [facility] TROPONIN I Specimen Type: PLASMA Comment: No hemolysis noted. Ordering Provider: CYRUS EVANS Report Released Date/Time: Nov 13, 2023 02:14 PM Reporting Lab: [facility] [address] [facility] [address] Performing Lab: [address] [address] TROPONIN I 0.044 ng/mL H 0-0.033 Nov 13, 2023 02:20 PM [facility] COMPREHENSIVE METABOLIC PANEL Specimen Type: PLASMA Comment: No hemolysis noted. Ordering Provider: CYRUS EVANS Report Released Date/Time: Nov 13, 2023 02:14 PM Reporting Lab: [place] [address] [facility] [address] Performing Lab: [address] [address] CREATININE 1.17 mg/dL 0.7-1.3 UREA NITROGEN 12.7 [...] U/L 8-40 EGFR (CKD-EPI 2020) 60.3 >60 Nov 13, 2023 02:20 PM [facility] CBC Specimen Type: BLOOD No comment entered. Ordering Provider: CYRUS EVANS Report Released Date/Time: Nov 13, 2023 02:14 PM Reporting Lab: [facility] [address] [facility] [address] Performing Lab: [facility] [address] [facility] [phone] WBC 12.5 10*3/uL H 3.6-11.2 RBC 4.21 [...] 10*3/uL 0.77-4.50 NEUT#-MDIFF 9.03 10*3/uL H 2.10-8.00 Social History: Smoking Status (Most current) and Tobacco Use (All prior to encounter date) This section includes the most current, and the historical, smoking and tobacco- related health factors from the [place] facility where the Encounter took place. Current Smoking Status This section includes the most current smoking, or tobacco-related health factor, from the [place] facility where the Encounter took place. Date/Time Current Smoking Status Comment Dena ity Nov 23, 2023 11:30 AM VA-TOBACCO NEVER USED [facility] Tobacco Use History This section includes a history of the smoking, or tobacco-related health factors, that were collected on or before the date of the Encounter. The data comes from the [place] facility where the Encounter took place. Date/Time Smoking Status/Tobacco Use Comment F acility Nov 23, 2023 11:30 AM VA-TOBACCO NEVER USED [facility] Nov 23, 2023 11:30 AM VA-TOBACCO QUIT 15 YRS OR MORE [facility] Nov 14, 2023 01:18 AM ORYX ADMIT TOBACCO SCREEN NO [facility] Aug 04, 2022 11:30 AM VA-TOBACCO NEVER USED [facility] Mar 11, 2021 10:30 AM VA-TOBACCO FORMER USER [facility] Mar 11, 2021 10:30 AM VA-TOBACCO QUIT 15 YRS OR MORE [facility] Apr 19, 2018 09:07 AM VA-TOBACCO FORMER USER [facility] Apr 19, 2018 09:07 AM VA-TOBACCO QUIT 15 YRS OR MORE [facility] Jul 24, 2017 08:16 AM QUIT TOBACCO >7 YEARS AGO [facility] Apr 16, 2017 12:43 PM QUIT TOBACCO >7 YEARS AGO [facility] Feb 01, 2017 11:47 AM LIFETIME NON-USER OF TOBACCO [facility] Nov 15, 2016 09:00 AM QUIT TOBACCO >7 YEARS AGO [facility] September 11, 2016 06:27 PM QUIT TOBACCO >7 YEARS AGO [facility] Dec 09, 2015 10:17 AM QUIT TOBACCO >7 YEARS AGO [facility] Jan 05, 2015 08:22 AM CURRENT TOBACCO USER [facility] Jan 05, 2015 08:22 AM TOBACCO MEDS OFFER ED BUT DECLINED [facility] Mar 18, 2014 10:40 AM CURRENT TOBACCO USER [facility] Mar 18, 2014 10:40 AM TOBACCO MEDS OFFER ED BUT DECLINED [facility] Nov 04, 2013 09:40 AM CURRENT TOBACCO USER [facility] Nov 26, 2012 08:10 AM QUIT TOBACCO >7 YEARS AGO [facility] May 03, 2009 08:45 AM QUIT TOBACCO >7 YEARS AGO [facility] Jul 06, 2008 08:46 AM CURRENT TOBACCO USER [facility] Jul 25, 2007 12:30 PM QUIT TOBACCO >12 M O & <7 YRS AGO [facility] Jun 07, 2006 09:21 AM CURRENT TOBACCO USER [facility] Jun 07, 2006 09:21 [facility] Aug 25, 2005 11:01 AM CURRENT TOBACCO USER [facility] Aug 25, 2005 11:01 AM TOBACCO CONTEMPLATION STAGE [facility] Oct 25, 2004 10:18 AM CURRENT NON-TOBACC O USER-HX OF USE [facility] Oct 25, 2004 10:18 AM TOBACCO TERMINATION STAGE [facility] Aug 24, 2003 10:43 AM CURRENT NON-TOBACC O USER-HX OF USE [facility] Aug 24, 2003 10:43 AM TOBACCO TERMINATION STAGE [facility] Aug 05, 2002 09:55 AM CURRENT NON-TOBACC O USER-HX OF USE QUIT [facility] Apr 15, 2001 08:28 AM CURRENT NON-TOBACC O USER-HX OF USE quit in 1979 [facility] Advance Directives: All historical and current Section Date Range: From patient's date of to the date document was created. This section includes ALL of a patient's completed or amended [place] Advance and Rescinded Directives. The entries below indicate that a directive exists for the patient, but an actual copy is not included with this document. The data comes from all [place] facilities. Date Advance Directives Provider Source Oct 19, 2023 ADVANCE DIRECTIVE WANG MURILLO [facility] Dec 12, 2022 RESCINDED ADVANCE DIRECTIVE DORIJITENDRA SKAGGS [facility] September 12, 2016 ADVANCE DIRECTIVE DISCUSSION YVETTE MEADOWS [facility] Radiology Reports: +/- 30 days of [...] the Encounter. The data comes from all [place] treatment facilities. Date/Time Radiology Report Provider Source Nov 23, 2023 09:03 AM NM MYOCARDIAL P SPECT STRESS/REST-P: JESUS ABRAHAM [id number] -[id number] M Exm Date: NOV 23, 2023@09:03 Req Phys: MEAGHAN QUINTEROS Loc: - TM-C SAME DAY CLINIC (Re Img Loc: -NUCLEAR MEDICINE Service: Unknown [address] [address] (Case [id number] COMPLETE) NM MYOCARDIAL PERF SPECT STRESS/R(NM Detailed) CPT:56901 Reason for Study: CHEST PAIN, ASSESS SUSPECTED OR KNOWN CAD (Case [id number] COMPLETE) TC-99M TETROFOSMIN (MYOVIEW) (NM Detailed) CPT:A9502 (Case 3813 COMPLETE) TC-99M TETROFOSMIN (MYOVIEW), PE(NM Detailed) CPT:A9502 (Case 3814 COMPLETE) NON-HEU TC-99M ADD-ON PER STUDY D(NM Detailed) CPT:Q9969 (Case 4082 COMPLETE) REGADENOSON INJECTION (NM Detailed) CPT:J2785 Clinical History: CHEST PAIN, ASSESS SUSPECTED OR KNOWN CAD Report Status: Verified Date Reported: NOV 23, 2023 Date Verified: NOV 23, 2023 Infantry Assaultman E-Sig:/ES/AGUSTO LIPSCOMB Report: PATIENT NAME: JESUS ABRAHAM CASE #: [id number], [id number], [id number], [id number] EXAMINATION: Rest/Lexiscan Stress Gated SPECT Myocardial Imaging HISTORY: 88 yo M with a history of T2DM, HTN, OA, L knee arthroplasty 2017 and CAD s/p DESx1 (records unavailable) that is presenting for a Lexiscan with MPI in the setting of chest pain and dizziness. TECHNIQUE: A dose of 9.4 mCi Tc-99m Myoview was administered IV at rest, and SPECT myocardial imaging was performed in the supine position. Lexiscan administration was performed under physician supervision. Cardiology will report on EKG findings and patient's stress tolerance. A dose of 36.0 mCi Tc-99m Myoview was administered IV at peak stress, and gated SPECT myocardial imaging was performed in the supine position. Non-gated prone stress imaging was also performed. COMPARISON: A study from 06/20/2018 is available for comparison. FINDINGS: The image quality is adequate due to significant patient motion. The left ventricle is normal in size at stress and rest. The stress SPECT images show a small area of mildly reduced counts of the apex that improves on prone imaging representing attenuation artifact. There is a small area area of mildly reduced counts of the basal inferior wall on supine stress imaging that is improved on prone stress imaging highly suggestive of an attenuation artifact. The gated images demonstrate normal myocardial thickening and normal wall motion. The calculated left ventricular ejection fraction is 76%, was 77% on prior. Impression: 1. No evidence of stress induced ischemia. 2. Normal left ventricle contractility with LVEF of 76%. Diagnostic code: 1000. Dictated by Rik Brand MD (Dehydrating Press Operator), Rodney Smith MD (Dehydrating Press Operator) IAgusto, have reviewed the images and report and concur with these findings. Primary Interpreting Staff: AGUSTO LIPSCOMB, RADIOLOGIST (Infantry Assaultman) Primary Interpreting Resident: RIK BRAND MD, COMPENSATION ADJUSTER /AGUSTO SEN [facility] Nov 13, 2023 04:[address] HEAD W/O CONT: JESUS ABRAHAM [id number] -[id number] M Exm Date: NOV 13, 2023@16:07 Req Phys: CYRUS EVANS Pat Loc: [facility]-EMERGENCY DEPT 2ND SHIFT (R Img Loc: [facility]-CT IMAGING [facility] Service: Unknown [facility] [address] [place] [address] (Case [id number] COMPLETE) CT HEAD W/O CONT (CT Detailed) CPT:75837 Reason for Study: confusion Clinical History: Responsible Attending: cyrus evans Attending Contact Number: [phone] Resident Contact Number: Allergies listed in CPRS chart: Patient has answered NKA Creatinine: CREATININE 1.17 mg/dL 11/13/2023 14:20 /eGFR: STL EGFR (within one year). CREATININE 1.17 mg/dL (11/13/23 14:20) Wt: 189.3 lb [85.87 kg] (10/18/2023 10:32) History of: Renal failure, chronic or acute renal disease: NO Report Status: Verified Date Reported: NOV 13, 2023 Date Verified: NOV 13, 2023 Infantry Assaultman E-Sig: Report: CT HEAD W/O CONT HISTORY: confusion COMPARISON: CT head 06/11/2019 TECHNIQUE: Contiguous axial CT images from the level of the skull base through the skull apex, performed at the local [place] facility. 269 images were received by the [place] National Teleradiology Program (NTP) for interpretation. RADIATION [...] clinical concern, consider MRI. READING PHYSICIAN: Anjum [id number] 11/13/2023 15:14 PDT [facility] National Teleradiology Program [phone] (For Medical Practitioner Use Only) Attention Patients / Veterans: If you have questions or concerns about these test results, please contact your ordering provider or primary care team. Primary Interpreting Staff: RADIOLOGY,OUTSIDE SERVICE, Staff Physician / RADIOLOGY,OUTSIDE SERVICE [facility] Nov 13, 2023 03:59 PM CHEST X-RAY, 2 VIEWS: JESUS ABRAHAM [id number] -[id number] M Exm Date: NOV 13, 2023@15:59 Req Phys: CYRUS EVANS Loc: -EMERGENCY DEPT 2ND SHIFT (R Img Loc: -MAIN RADIOLOGY SUITE Service: [facility], [address] [place] [address] (Case [id number] COMPLETE) CHEST X-RAY, 2 VIEWS (RAD Detailed) CPT:58567 Reason for Study: chest pain Clinical History: Report Status: Verified Date Reported: NOV 13, 2023 Date Verified: NOV 13, 2023 Infantry Assaultman E-Sig:/ES/AGUSTO LIPSCOMB Report: INDICATION: chest pain COMPARISON: None TECHNIQUE: Chest 2 views Impression: No large pleural effusion or sizable pneumothorax. No new focal consolidation. Unchanged cardiomediastinal silhouette. Primary Interpreting Staff: AGUSTO LIPSCOMB, RADIOLOGIST (Infantry Assaultman) /AGUSTO HOOVER [facility] Pathology Reports: +/- 30 days of [...] the Encounter. The data comes from all [facility] facilities. Date/Time Pathology Report Provider Source Nov 13, 2023 06:10 PM LR MICROBIOLOGY RE PORT: Accession [UID]: [id number] [[id number]] Received: Nov 13, 2023@18:22 Collection sample: B [...] --=--=--=--=--=--=-- Performing Laboratory: Bacteriology Report Performed By: [facility] [address] [place] [address]# [id number] [address] [facility] [address] [place] [address] [facility] Nov 13, 2023 06:05 PM LR MICROBIOLOGY RE PORT: Accession [UID]: [id number] [[id number]] Received: Nov 13, 2023@18:23 Collection sample: Ivon GAONAD. BOTTLE Collection date: Nov 13, 2023 18:05 [...] --=--=--=--=--=--=-- Performing Laboratory: Bacteriology Report Performed By: [facility] [address] [facility] CLIA# [id number] [address] [facility] [address] [place] [address] [facility] Encounter Notes: All associated encounter notes This section contains the clinical notes associated to the Encounter. Date/Time Encounter Note(s) Provider Source Nov 28, 2023 09:00 AM SOCIAL WORK TELEPH ONE ENCOUNTER NOTE: LOCAL TITLE: SW TELEPHONE CONTACT ST STANDARD TITLE: SOCIAL WORK TELEPHONE ENCOUNTER NOTE DATE OF NOTE: NOV 28, 2023@09:00 ENTRY DATE: NOV 28, 2023@09:33:12 AUTHOR: JOVITA PARKER COSIGNER: URGENCY: STATUS: COMPLETED PCP: Please place BT consult, [place] uses a cane when navigating [place]. JESUS ABRAHAM 22 min verified last4/ Problem: PACT LAV CREWMAN spoke with Garett's granddaughter/DPOA/CG Cassandra Burns for scheduled phone appointment to review [place]'s care needs and possible [facility] resources. Intervention: currently lives in [facility] with his . Cassandra states they started in home hospice for her yesterday. Cassandra inquiring about status of PT request for PT at Garett's [facility]. Reviewed pending consults with recent note that PT is reviewing consult and CC approval. Provided Care in [facility] [phone] for further updates, will also place comment on consult. Cassandra reports transporting Vet to appointments is getting difficult due to distance and his mobility, Vet uses a cane when at [facility]. She is primary person to transport Vet to his appointments but due to a TBI she does not drive into [place]. Used to utilize [facility] but reports difficulty scheduling. Agreeable to BT consult, reviewed it is not guaranteed transportation and encouraged to have a back up plan, Cassandra can ride with Vet in van. Reviewed [facility], Cassandra identified benefits of this program but states likes his current PCP, also if Vet requires additional labs/testing and would need to come to [facility] anyway she may prefer to keep Vet at Team [facility]. Encouraged to request referral at any time in future. Reviewed [facility], [facility], [facility] if these supports ever needed in the future. Reviewed Urgent Care benefit, Vet is in priority group 3 and first 3 UC visits in calendar year would have $0 copay, after that $30. [facility] mail list of UC in Vet's area. Reviewed LTC. Unfortunately Vet does not qualify for [facility]. [facility] - declined further information as locations are too far, prefer to keep Vet close to family in area. Reviewed Vet would need to use private insurance/pay, consider Medicaid if LTC needed in the future. Resolution: Reviewed role of PACT LAV CREWMAN. Cassandra appreciative of resources and information. Denied further LAV CREWMAN interventions at this time, encouraged Cassandra to reach out as needed. /manuel/ JOVITA CANNON, LAV CREWMAN, Primary Care Signed: 11/28/2023 09:53 Receipt Acknowledged By: 11/28/2023 12:28 /manuel/ MEAGHAN QUINTEROS MD STAFF PHYSICIAN [facility] [facility]
--- OUTSIDE RECORDS SUMMARY | 2024-05-17 21:50 | XMS_ITS | Encounter Summary ---
Author Name [facility] Organization [facility] Address [address] [place] [address] Care Team Providers Care Compression Molding Machine Operator Name Role Phone MEAGHAN QUINTEROS Primary [...] PART A Aug 12, 2001 PART A [id number] [phone] JESUS ABRAHAM PATIENT MEDICARE (WNR) MEDICARE (M) PART B Aug 12, 2001 PART B [id number] TOBIDANAYJESUS BUTT PATIENT Selected Encounter This section includes the information on record at [facility] for the Encounter. Date/Time Encounter Type Encounter Description Reason Pro vider Source Dec 19, 2023 12:00 PM Outpatient Encounter GENERAL INTERNAL MEDICINE [facility] Encounter Template Text not used by [place] Plan of Treatment: Future Appointments (+ 6 [...] 20 appointments. The data comes from all [facility]. Appointment Date/Time Appointment Type Appointme nt Facility Name Dec 24, 2023 02:45 PM AMBULATORY - SURGERY [facility] Jan 01, 2024 02:00 PM AMBULATORY - REHAB MEDICIN E [facility] Feb 29, 2024 01:30 PM AMBULATORY - MEDICINE [facility] Mar 03, 2024 09:15 AM AMBULATORY - MEDICINE [facility] Mar 08, 2024 01:30 PM AMBULATORY - MEDICINE [facility] Mar 10, 2024 12:45 PM AMBULATORY - SURGERY [facility] Apr 16, 2024 11:00 AM AMBULATORY - REHAB MEDICIN E [facility] May 15, 2024 11:00 AM AMBULATORY - SURGERY [facility] May 26, 2024 12:30 PM AMBULATORY - SURGERY [facility] Active, Pending, and Scheduled Orders This section includes a listing of several types of active, pending, and scheduled orders, including clinic medications orders, diagnostic test orders, procedure orders and consult orders; where the start date of the order is 45 days before the date of the Encounter or 45 days after the date of theEncounter. The data comes from all [facility]. Test Date/Time Test Type Test Details Facility Name Nov 13, 2023 09:10 PM Laboratory - Chemi stry Order MRSA SURVL NARES DNA NARES WC [facility] Nov 21, 2023 12:00 AM Laboratory - Chemi stry Order HGA1C BLOOD SP [facility] Nov 21, 2023 12:00 AM Laboratory - Chemi stry Order VITAMIN D, 25-HYDROXY GOLD/RED SST SERUM SP [facility] Social History: Smoking Status (Most current) and Tobacco Use (All prior to encounter date) This section includes the most current, and the historical, smoking and tobacco- related health factors from the [place] facility where the Encounter took place. Current Smoking Status This section includes the most current smoking, or tobacco-related health factor, from the [place] facility where the Encounter took place. Date/Time Current Smoking Status Comment Facil ity Nov 23, 2023 11:30 AM VA-TOBACCO NEVER USED [facility] Tobacco Use History This section includes a history of the smoking, or tobacco-related health factors, that were collected on or before the date of the Encounter. The data comes from the [place] facility where the Encounter took place. Date/Time Smoking Status/Tobacco Use Comment Lynnette roberto Nov 23, 2023 11:30 AM VA-TOBACCO NEVER USED [facility] Nov 23, 2023 11:30 AM VA-TOBACCO QUIT 15 YRS OR MORE [facility] Nov 14, 2023 01:18 AM ORYX ADMIT TOBACCO SCREEN NO [facility] Aug 04, 2022 11:30 AM VA-TOBACCO NEVER USED [facility] Mar 11, 2021 10:30 AM VA-TOBACCO FORMER USER [facility] Mar 11, 2021 10:30 AM VA-TOBACCO QUIT 15 YRS OR MORE [facility] Apr 19, 2018 09:07 AM VA-TOBACCO FORMER USER [facility] Apr 19, 2018 09:07 AM VA-TOBACCO QUIT 15 YRS OR MORE [facility] Jul 24, 2017 08:16 AM QUIT TOBACCO >7 YEARS AGO [facility] Apr 16, 2017 12:43 PM QUIT TOBACCO >7 YEARS AGO [facility] Feb 01, 2017 11:47 AM LIFETIME NON-USER OF TOBACCO [facility] Nov 15, 2016 09:00 AM QUIT TOBACCO >7 YEARS AGO [facility] September 11, 2016 06:27 PM QUIT TOBACCO >7 YEARS AGO [facility] Dec 09, 2015 10:17 AM QUIT TOBACCO >7 YEARS AGO [facility] Jan 05, 2015 08:22 AM CURRENT TOBACCO USER [facility] Jan 05, 2015 08:22 AM TOBACCO MEDS OFFER ED BUT DECLINED [facility] Mar 18, 2014 10:40 AM CURRENT TOBACCO USER [facility] Mar 18, 2014 10:40 AM TOBACCO MEDS OFFER ED BUT DECLINED [facility] Nov 04, 2013 09:40 AM CURRENT TOBACCO USER [facility] Nov 26, 2012 08:10 AM QUIT TOBACCO >7 YEARS AGO [facility] May 03, 2009 08:45 AM QUIT TOBACCO >7 YEARS AGO [facility] Jul 06, 2008 08:46 AM CURRENT TOBACCO USER [facility] Jul 25, 2007 12:30 PM QUIT TOBACCO >12 M O & <7 YRS AGO [facility] Jun 07, 2006 09:21 AM CURRENT TOBACCO USER [facility] Jun 07, 2006 09:21 AM TOBACCO [facility] Aug 25, 2005 11:01 AM CURRENT TOBACCO USER [facility] Aug 25, 2005 11:01 AM TOBACCO CONTEMPLATION STAGE [facility] Oct 25, 2004 10:18 AM CURRENT NON-TOBACC O USER-HX OF USE [facility] Oct 25, 2004 10:18 AM TOBACCO TERMINATION STAGE [facility] Aug 24, 2003 10:43 AM CURRENT NON-TOBACC O USER-HX OF USE [facility] Aug 24, 2003 10:43 AM TOBACCO TERMINATION STAGE [facility] Aug 05, 2002 09:55 AM CURRENT NON-TOBACC O USER-HX OF USE QUIT [facility] Apr 15, 2001 08:28 AM CURRENT NON-TOBACC O USER-HX OF USE quit in 1979 [facility] Advance Directives: All historical and current Section Date Range: From patient's date of to the date document was created. This section includes ALL of a patient's completed or amended [place] Advance and Rescinded Directives. The entries below indicate that a directive exists for the patient, but an actual copy is not included with this document. The data comes from all [place] facilities. Date Advance Directives Provider Source Oct 19, 2023 ADVANCE DIRECTIVE WANG MURILLO [facility] Dec 12, 2022 RESCINDED ADVANCE DIRECTIVE JITENDRA MEADOWS [facility] September 12, 2016 ADVANCE DIRECTIVE DISCUSSION YVETTE MEADOWS [facility] Radiology Reports: +/- 30 days of [...] the Encounter. The data comes from all [place] treatment facilities. Date/Time Radiology Report Provider Source Nov 23, 2023 09:03 AM NM MYOCARDIAL P SP ECT STRESS/REST-P: JESUS ABRAHAM [id number] M Exm Date: NOV 23, 2023@09:03 Req Phys: MEAGHAN QUINTEROS Loc: [facility] (Re Img Loc: -NUCLEAR MEDICINE Service: Unknown [address] [address] (Case [id number] COMPLETE) NM MYOCARDIAL PERF SPECT STRESS/R(NM Detailed) CPT:22489 Reason for Study: CHEST PAIN, ASSESS SUSPECTED [...] 23, 2023 Date Verified: NOV 23, 2023 Rural Carrier Associate E-Sig:/ES/AGUSTO LIPSCOMB Report: PATIENT NAME: JESUS ABRAHAM CASE #: [id number], [id number], [id number], [id number] EXAMINATION: Rest/Lexiscan Stress Gated SPECT Myocardial Imaging [...] 76%. Diagnostic code: 1000. Dictated by Rik Dorantes MD (Offset Printing Operator), Rodney Smith MD (Offset Printing Operator) IAgusto, have reviewed the images and report and concur with these findings. Primary Interpreting Staff: AGUSTO LIPSCOMB, RADIOLOGIST (Rural Carrier Associate) Primary Interpreting Resident: RIK DORANTES MD, CLIENT PROGRAM MANAGER /AGUSTO SEN [facility] Encounter Notes: All associated encounter notes This section contains the clinical notes associated to the Encounter. Date/Time Encounter Note(s) Provider Source Dec 19, 2023 12:00 PM NONVA CONSULT: LOCAL TITLE: COMMUNITY CARE-CONSULT RESULT NOTE [facility] STANDARD TITLE: NONVA CONSULT DATE OF NOTE: DEC 19, 2023@12:00 ENTRY DATE: MAY 01, 2024@14:37:39 AUTHOR: KIRSTEN CHERRY EXP COSIGNER: URGENCY: STATUS: COMPLETED VistA Imaging - Scanned Document DOS 12/19/2023 [facility] SCANNED DOCUMENT SIGNATURE NOT REQUIRED Electronically Filed: 05/01/2024 by: KIRSTEN PURI [facility]
--- OUTSIDE RECORDS SUMMARY | 2024-05-17 21:50 | XMS_ITS | Encounter Summary ---
Author Name [facility] [place] [facility] [place] Address [address] [place] [address] Care Team Providers Care Estimator Paperboard Boxes Name Role Phone MEAGHAN QUINTEROS Primary Care [...] PART A Aug 12, 2001 PART A [id number] JESUS ABRAHAM PATIENT MEDICARE (WNR) MEDICARE (M) PART B Aug 12, 2001 PART B [id number] BARRINGTONJESUS BUTT PATIENT Selected Encounter This section includes the information on record at [place] for the Encounter. Date/Time Encounter Type Encounter Description Reason Pro vider Source Nov 23, 2023 09:00 AM Outpatient Encounter CARDIAC STRESS TEST IHE Encounter Template Text not used by [...] 20 appointments. The data comes from all [facility]. Appointment Date/Time Appointment Type Appointme nt Facility Name Dec 24, 2023 02:45 PM AMBULATORY - SURGERY [facility] Jan 01, 2024 02:00 PM AMBULATORY - REHAB MEDICIN E [facility] Feb 29, 2024 01:30 PM AMBULATORY - MEDICINE [facility] Mar 03, 2024 09:15 AM AMBULATORY - MEDICINE [facility] Mar 08, 2024 01:30 PM AMBULATORY - MEDICINE [facility] Mar 10, 2024 12:45 PM AMBULATORY - SURGERY [facility] Apr 16, 2024 11:00 AM AMBULATORY - REHAB MEDICIN E [facility] May 15, 2024 11:00 AM AMBULATORY - SURGERY [facility] Active, Pending, and Scheduled Orders This section includes a listing of several types of active, pending, and scheduled orders, including clinic medications orders, diagnostic test orders, procedure orders and consult orders; where the start date of the order is 45 days before the date of the Encounter or 45 days after the date of theEncounter. The data comes from all [facility]. Test Date/Time Test Type Test Details Facility Name Nov 13, 2023 09:10 PM Laboratory - Chemi stry Order MRSA SURVL NARES DNA N[facility]ES [facility] Nov 21, 2023 12:00 AM Laboratory - Chemi stry Order VITAMIN D, 25-HYDROXY GOLD/RED SST SERUM SP [facility] Nov 21, 2023 12:00 AM Laboratory - Chemi stry Order HGA1C BLOOD [facility] Lab Results: +/- 30 days of [...] Range Comment Nov 14, 2023 05:33 AM [facility] TSH W/ REFLEX FT4 (STL) Specimen Type: PLASMA No comment entered. Ordering Provider: NAYLA DUNN Report Released Date/Time: Nov 14, 2023 04:23 AM Reporting Lab: [facility] [address] [place] [address] Performing Lab: [facility] [address] [place] [address] TSH 3.546 u[IU]/mL 0.47-5 Nov 14, 2023 05:33 AM [facility] PHOSPHOROUS Specimen Type: PLASMA Comment: No hemolysis noted. Ordering Provider: NAYLA DUNN Report Released Date/Time: Nov 14, 2023 04:23 AM Reporting Lab: [address] [address] Performing Lab: [address] [address] PHOSPHOROUS 2.9 mg/dL 2.3-4.7 Nov 14, 2023 05:33 AM [facility] MAGNESIUM Specimen Type: PLASMA Comment: No hemolysis noted. Ordering Provider: NAYLA DUNN Report Released Date/Time: Nov 14, 2023 04:23 AM Reporting Lab: [facility] [address] [place] [address] Performing Lab: [address] [address] MAGNESIUM 2.1 mg/dL 1.6-2.6 Nov 14, 2023 05:33 AM [facility] BASIC METABOLIC PANEL Specimen Type: PLASMA Comment: No hemolysis noted. Ordering Provider: NAYLA DUNN Report Released Date/Time: Nov 14, 2023 04:23 AM Reporting Lab: [address] [address] Performing Lab: [address] [address] CREATININE 0.78 mg/dL 0.7-1.3 UREA NITROGEN 12.0 mg/dL 9.0-25.0 GLUCOSE 83 mg/dL 72-99 SODIUM 136 meq/L 136-145 POTASSIUM 4.4 meq/L 3.5-5 CHLORIDE 103 meq/L 98-107 CARBON DIOXIDE 26 meq/L 22-31 CALCIUM 8.8 mg/dL 8.4-10.4 EGFR (CKD-EPI 2020) 86.3 >60 Nov 14, 2023 05:33 AM [facility] CBC Specimen Type: BLOOD Comment: Manual diff performed on 11/13/23 Ordering Provider: NAYLA DUNN Report Released Date/Time: Nov 14, 2023 04:23 AM Reporting Lab: [address] [address] Performing Lab: [address] [address] WBC 12.8 10*3/uL H 3.6-11.2 RBC 3.87 [...] ABSOLUTE 0.07 10*3/uL 0.00-0.20 Nov 14, 2023 01:30 AM [facility] TROPONIN I Specimen Type: PLASMA No comment entered. Ordering Provider: NAYLA DUNN Report Released Date/Time: Nov 14, 2023 01:10 AM Reporting Lab: [place] [address] [facility] [address] Performing Lab: [address] [address] TROPONIN I 0.044 ng/mL H 0-0.033 Nov 13, 2023 10:00 PM [facility] MRSA SURVL NARES DNA Specimen Type: NARES [...] Nov 13, 2023 09:10 PM Reporting Lab: [address] [address] Performing Lab: [address] [address] MRSA SURVL NARES DNA Negative Negative Nov 13, 2023 07:10 PM [facility] TROPONIN I Specimen Type: PLASMA No comment entered. Ordering Provider: CYRUS EVANS Report Released Date/Time: Nov 13, 2023 06:56 PM Reporting Lab: [address] [address] Performing Lab: [address] [address] TROPONIN I 0.045 ng/mL H 0-0.033 Nov 13, 2023 06:20 PM [facility] BLOOD GAS PANEL ABG ([facility]) Specimen Type: VENOUS BLOOD Comment: Test Performed by: [id number] Meter #: [id number] Ordering Provider: CYRUS EVANS Report Released Date/Time: Nov 13, 2023 06:20 PM Reporting Lab: [address] [address] Performing Lab: [facility] [address] [place] [phone] GEM PH 7.38 7.31-7.41 GEM PCO2 52 [...] TEMP 37.0 Nov 13, 2023 06:15 PM [facility] COVID-19 DIAGNOSTIC (FLU/RSV)(STL) Specimen Type: NASOPHARYNX Comment: [...] Nov 13, 2023 03:21 PM Reporting Lab: [address] [address] Performing Lab: [address] [address] INFLUENZA A Negative Negative INFLUENZA B Negative Negative COVID-19 (STL-PB) Not Detected Not Detected RSV (Cepheid) NEGATIVE Negative Nov 13, 2023 06:00 PM [facility] PT/INR NEW (STL-MA) Specimen Type: PLASMA No comment entered. Ordering Provider: CYRUS EVANS Report Released Date/Time: Nov 13, 2023 03:21 PM Reporting Lab: [facility] [address] [facility] [address] Performing Lab: [address] [address] PROTIME 12.7 s H 9.4-12.5 INR VALUE 1.1 {INR} Nov 13, 2023 06:00 PM [facility] APTT Specimen Type: PLASMA No comment entered. Ordering Provider: CYRUS EVANS Report Released Date/Time: Nov 13, 2023 03:21 PM Reporting Lab: [place] [address] [facility] [address] Performing Lab: [address] [address] APTT 33.7 s 26.7-39.9 Nov 13, 2023 04:59 PM [facility] URINALYSIS W/ CX REFLEX (L-PB) Specimen Type: URINE No comment entered. Ordering Provider: CYRUS EVANS Report Released Date/Time: Nov 13, 2023 03:12 PM Reporting Lab: [address] [address] Performing Lab: [address] [address] URINE COLOR Yellow Yellow U.BILIRUBIN Negative mg/dL [...] 1.005-1.02 9 Nov 13, 2023 02:20 PM [facility] TROPONIN I Specimen Type: PLASMA Comment: No hemolysis noted. Ordering Provider: CYRUS EVANS Report Released Date/Time: Nov 13, 2023 02:14 PM Reporting Lab: [address] [address] Performing Lab: [address] [address] TROPONIN I 0.044 ng/mL H 0-0.033 Nov 13, 2023 02:20 PM [facility] COMPREHENSIVE METABOLIC PANEL Specimen Type: PLASMA Comment: No hemolysis noted. Ordering Provider: CYRUS EVANS Report Released Date/Time: Nov 13, 2023 02:14 PM Reporting Lab: [address] [address] Performing Lab: [address] [address] CREATININE 1.17 mg/dL 0.7-1.3 UREA NITROGEN 12.7 [...] 60.3 >60 Nov 13, 2023 02:20 PM [facility] CBC Specimen Type: BLOOD No comment entered. Ordering Provider: CYRUS EVANS Report Released Date/Time: Nov 13, 2023 02:14 PM Reporting Lab: [facility] [address] [facility] [address] Performing Lab: [facility] [address] [facility] [address] WBC 12.5 10*3/uL H 3.6-11.2 RBC 4.21 [...] 10*3/uL 0.77-4.50 NEUT#-MDIFF 9.03 10*3/uL H 2.10-8.00 Vital Signs: All taken on the encounter date This section contains inpatient and outpatient Vital Signs collected on the date of the Encounter. Date/Time Temperature Pulse Blood Pressure Respiratory Rate SP02 Pain Height Weight Body Mass Index Source Nov 23, 2023 11:38 AM 97.3 66 122/60 [address] [facility] Social History: Smoking Status (Most current) and [...] place. Date/Time Current Smoking Status Comment Dena pelletiery Nov 23, 2023 11:30 AM [place]-TOBACCO NEVER USED [facility] Tobacco Use History This section includes a history of the smoking, or tobacco-related health factors, that were collected on or before the date of the Encounter. The data comes from the [place] facility where the Encounter took place. Date/Time Smoking Status/Tobacco Use Comment F acility Nov 23, 2023 11:30 AM [place]-TOBACCO NEVER USED [facility] Nov 23, 2023 11:30 AM VA-TOBACCO QUIT 15 YRS OR MORE [facility] Nov 14, 2023 01:18 AM ORYX ADMIT TOBACCO SCREEN NO [facility] Aug 04, 2022 11:30 AM VA-TOBACCO NEVER USED [facility] Mar 11, 2021 10:30 AM VA-TOBACCO FORMER USER [facility] Mar 11, 2021 10:30 AM VA-TOBACCO QUIT 15 YRS OR MORE [facility] Apr 19, 2018 09:07 AM VA-TOBACCO FORMER USER [facility] Apr 19, 2018 09:07 AM VA-TOBACCO QUIT 15 YRS OR MORE [facility] Jul 24, 2017 08:16 AM QUIT TOBACCO >7 YEARS AGO [facility] Apr 16, 2017 12:43 PM QUIT TOBACCO >7 YEARS AGO [facility] Feb 01, 2017 11:47 AM LIFETIME NON-USER OF TOBACCO [facility] Nov 15, 2016 09:00 AM QUIT TOBACCO >7 YEARS AGO [facility] September 11, 2016 06:27 PM QUIT TOBACCO >7 YEARS AGO [facility] Dec 09, 2015 10:17 AM QUIT TOBACCO >7 YEARS AGO [facility] Jan 05, 2015 08:22 AM CURRENT TOBACCO USER [facility] Jan 05, 2015 08:22 AM TOBACCO MEDS OFFER ED BUT DECLINED [facility] Mar 18, 2014 10:40 AM CURRENT TOBACCO USER [facility] Mar 18, 2014 10:40 AM TOBACCO MEDS OFFER ED BUT DECLINED [facility] Nov 04, 2013 09:40 AM CURRENT TOBACCO USER [facility] Nov 26, 2012 08:10 AM QUIT TOBACCO >7 YEARS AGO [facility] May 03, 2009 08:45 AM QUIT TOBACCO >7 YEARS AGO [facility] Jul 06, 2008 08:46 AM CURRENT TOBACCO USER [facility] Jul 25, 2007 12:30 PM QUIT TOBACCO >12 M O & <7 YRS AGO [facility] Jun 07, 2006 09:21 AM CURRENT TOBACCO USER [facility] Jun 07, 2006 09:21 AM TOBACCO [facility] Aug 25, 2005 11:01 AM CURRENT TOBACCO USER [facility] Aug 25, 2005 11:01 AM TOBACCO CONTEMPLATION STAGE [facility] Oct 25, 2004 10:18 AM CURRENT NON-TOBACC O USER-HX OF USE [facility] Oct 25, 2004 10:18 AM TOBACCO TERMINATION STAGE [facility] Aug 24, 2003 10:43 AM CURRENT NON-TOBACC O USER-HX OF USE [facility] Aug 24, 2003 10:43 AM TOBACCO TERMINATION STAGE [facility] Aug 05, 2002 09:55 AM CURRENT NON-TOBACC O USER-HX OF USE QUIT [facility] Apr 15, 2001 08:28 AM CURRENT NON-TOBACC O USER-HX OF USE quit in 1979 [facility] Advance Directives: All historical [...] 19, 2023 ADVANCE DIRECTIVE WANG MURILLO [facility] Dec 12, 2022 RESCINDED ADVANCE DIRECTIVE JITENDRA MEADOWS [facility] September 12, 2016 ADVANCE DIRECTIVE DISCUSSION YVETTE MEADOWS [facility] Radiology Reports: +/- 30 days of [...] NM MYOCARDIAL P SPECT STRESS/REST-P: JESUS ABRAHAM [id number] -[id number] M Exm Date: NOV 23, 2023@09:03 Req Phys: MEAGHAN QUINTEROS Loc: [facility]-PC TM-C SAME DAY CLINIC (Re Img Loc: [facility]-NUCLEAR MEDICINE Service: Unknown [address] [address] (Case [id number] COMPLETE) NM MYOCARDIAL PERF SPECT STRESS/R(NM Detailed) CPT:13769 Reason for Study: CHEST PAIN, ASSESS SUSPECTED [...] 23, 2023 Date Verified: NOV 23, 2023 Cupboard Builder E-Sig:/ES/AGUSTO LIPSCOMB Report: PATIENT NAME: JESUS ABRAHAM CASE #: [id number], [id number], [id number] EXAMINATION: Rest/Lexiscan Stress Gated SPECT Myocardial Imaging HISTORY: 88 yo M with a history of T2DM, HTN, OA, L knee arthroplasty 2016 and CAD s/p DESx1 (records unavailable) that [...] code: 1000. Dictated by Rik Brand MD (Tax Map Technician), Rodney Smith MD (Tax Map Technician) IAgusto, have reviewed the images and report and concur with these findings. Primary Interpreting Staff: AGUSTO LIPSCOMB, RADIOLOGIST (Cupboard Builder) Primary Interpreting Resident: RIK BRAND MD, HEAD SULFIDE OPERATOR /AGUSTO MAST [facility] Nov 13, 2023 04:[address] HEAD W/O CONT: JESUS ABRAHAM [id number] -[id number] M Ex Date: NOV 13, 2023@16:07 Req Phys: CYRUS EVANS Loc: [facility]-EMERGENCY DEPT 2ND SHIFT (R Img Loc: [facility]-CT IMAGING [facility] Service: Unknown [facility] [address] [place] [address] (Case [id number] COMPLETE) CT HEAD W/O CONT (CT Detailed) CPT:21668 Reason for Study: confusion Clinical History: Responsible Attending: cyrus evans Attending Contact Number: [phone] Resident Contact Number: Allergies listed in CPRS chart: Patient has answered NKA Creatinine: CREATININE 1.17 mg/dL 11/13/2023 14:20 /eGFR: STL EGFR (within one year). CREATININE 1.17 mg/dL (11/13/23 14:20) Wt: 189.3 lb [85.87 kg] (10/18/2023 10:32) History of: Renal failure, chronic or acute renal disease: NO Report Status: Verified Date Reported: NOV 13, 2023 Date Verified: NOV 13, 2023 Cupboard Builder E-Sig: Report: CT HEAD W/O CONT HISTORY: confusion COMPARISON: CT head 06/11/2019 TECHNIQUE: Contiguous axial CT images from the level of the skull base through the skull apex, performed at the local [place] facility. 269 images were received by the [place] National Teleradiology Program (NTP) for interpretation. RADIATION [...] clinical concern, consider MRI. READING PHYSICIAN: Anjum [id number] 11/13/2023 15:14 PDT [facility] National Teleradiology Program [phone] (For Medical Practitioner Use Only) Attention Patients / Veterans: If you have questions or concerns about these test results, please contact your ordering provider or primary care team. Primary Interpreting Staff: RADIOLOGY,OUTSIDE SERVICE, Staff Physician / RADIOLOGY,OUTSIDE SERVICE [facility] Nov 13, 2023 03:59 PM CHEST X-RAY, 2 VIEWS: JESUS ABRAHAM [id number] -[id number] M Exm Date: NOV 13, 2023@15:59 Req Phys: CYRUS EVANS Pat Loc: -EMERGENCY DEPT 2ND SHIFT (R Img Loc: -MAIN RADIOLOGY SUITE Service: Unknown [facility] [address] [place] [address] (Case [id number] COMPLETE) CHEST X-RAY, 2 VIEWS (RAD Detailed) CPT:52725 Reason for Study: chest pain Clinical History: Report Status: Verified Date Reported: NOV 13, 2023 Date Verified: NOV 13, 2023 Cupboard Builder E-Sig:/ES/AGUSTO LIPSCOMB Report: INDICATION: chest pain COMPARISON: None TECHNIQUE: Chest 2 views Impression: No large pleural effusion or sizable pneumothorax. No new focal consolidation. Unchanged cardiomediastinal silhouette. Primary Interpreting Staff: AGUSTO LIPSCOMB, RADIOLOGIST (Cupboard Builder) /AGUSTO [place] [facility] Pathology Reports: +/- 30 days of [...] comes from all [place] treatment facilities. Date/Time Pathology Report Provider Source Nov 13, 2023 06:10 PM LR MICROBIOLOGY RE PORT: Accession [UID]: [facility] [id number] [[id number]] Received: Nov 13, 2023@18:22 Collection sample: B D BLD. BOTTLE (SET 2)Collection date: Nov 13, 2023 18:10 Site/Specimen: BLOOD Provider: CYRUS EVANS Test(s) ordered: BLOOD CULT (SET 2)............ completed: Nov 20, 2023 16:22 * BACTERIOLOGY FINAL REPORT => Nov 20, 2023 16:24 TECH CODE: [id number] Bacteriology Remark(s): CULTURE IS NEGATIVE TO DATE, ALL POSITIVES ARE ROUTINELY CALLED. KASEY 11/20/23 CULTURE SHOWS NO GROWTH IN 6 DAYS. =--=--=--=--=--=--=--=--=--=- -=--=--=--=--=--=--=--=--=--= --=--=--=--=--=--=-- Performing Laboratory: Bacteriology Report Performed By: [facility] [id number] [address] [facility] [address] [place] [address] [facility] Nov 13, 2023 06:05 PM LR MICROBIOLOGY RE PORT: Accession [UID]: [id number] [[id number]] Received: Nov 13, 2023@18:23 Collection sample: Ivon Humphrey BLD. BOTTLE Collection date: Nov 13, 2023 18:05 Site/Specimen: BLOOD Provider: CYRUS EVANS Test(s) ordered: BLOOD CULT (SET 1)............ completed: Nov 20, 2023 16:20 * BACTERIOLOGY FINAL REPORT => Nov 20, 2023 16:24 TECH CODE: [id number] Bacteriology Remark(s): CULTURE IS NEGATIVE TO DATE, ALL POSITIVES ARE ROUTINELY CALLED. KASEY 11/20/23 CULTURE SHOWS NO GROWTH IN 6 DAYS. =--=--=--=--=--=--=--=--=--=- -=--=--=--=--=--=--=--=--=--= --=--=--=--=--=--=-- Performing Laboratory: Bacteriology Report Performed By: [facility] [address] [facility] CLIA# [id number] [address] [address] [place] [address] [facility] Encounter Notes: All associated encounter notes This section contains the clinical notes associated to the Encounter. Date/Time Encounter Note(s) Provider Source Nov 23, 2023 02:40 PM CARDIOLOGY DIAGNOS TIC STUDY REPORT: LOCAL TITLE: CP EXERCISE STRESS TEST STL STANDARD TITLE: CARDIOLOGY DIAGNOSTIC STUDY REPORT DATE OF NOTE: NOV 23, 2023@14:40:08 ENTRY DATE: NOV 23, 2023@14:40:08 AUTHOR: CLINICAL,DEVICE PRO EXP COSIGNER: URGENCY: STATUS: COMPLETED DOCUMENT IN VISTA IMAGING SEE FULL REPORT IN VISTA IMAGING SIGNATURE NOT REQUIRED SEE SIGNATURE IN VISTA IMAGING (zzMuse Exercise) AUTO-INSTRUMENT DIAGNOSIS Procedure: [id number] Stress Test Release Status: Released Off-Line Verified Date Verified: Nov 23, 2023@14:40:05 83048 Protocol Name: ARM CRANK A 49096 Time In Exercise Phase:00:05:46 54454 Max. Systolic BP: 195 mmHg 17673 Max Diastolic BP: 74 mmHg 01549 Max Heart Rate: 101 BPM 76237 Max Predicted Heart Qpe237 BPM 40303 Reason For Termination:Fatigue 60872 Reason for Test: Chest Discomfort 25560 Target HR Formula: (220 - Age)*100% 22811 Overall Impression: SEE STRESS TEST PROCEDURE NOTE for DETAILS Administrative Closure: 11/23/2023 by: CLINICAL,DEVICE PROXY SERVICE CLINICAL,DEVICE PROXY SERVICE [facility]
--- OUTSIDE RECORDS SUMMARY | 2024-05-17 21:50 | XMS_ITS | Encounter Summary ---
Author Name [facility] Organization [facility] Address [address] [place] [address] Care Team Providers Care Resource Manager Forester Name Role Phone MEAGHAN QUINTEROS Primary Care [...] PART A Aug 12, 2001 PART A [id number] JESUS ABRAHAM PATIENT MEDICARE (WNR) MEDICARE (M) PART B Aug 12, 2001 PART B [id number] [phone] TOBIDANAYJESUS BUTT PATIENT Selected Encounter This section includes the information on record at [place] for the Encounter. Date/Time Encounter Type Encounter Description Reason Pro vider Source Dec 31, 2023 02:08 PM Outpatient Encounter GENERAL INTERNAL MEDICINE I[facility] Encounter Template Text not used by [place] Plan of Treatment: Future Appointments (+ 6 [...] 20 appointments. The data comes from all [facility]. Appointment Date/Time Appointment Type Appointme nt Facility Name Jan 01, 2024 02:00 PM AMBULATORY - REHAB MEDICIN E [facility] Feb 29, 2024 01:30 PM AMBULATORY - MEDICINE [facility] Mar 03, 2024 09:15 AM AMBULATORY - MEDICINE [facility] Mar 08, 2024 01:30 PM AMBULATORY - MEDICINE [facility] Mar 10, 2024 12:45 PM [facility]UL[facility]ORY [facility] SUR[facility]ERY [facility] Apr 16, 2024 11:00 AM AMBULATORY - REHAB MEDICIN E [facility] May 15, 2024 11:00 AM AMBULATORY - SURGERY [facility] May 26, 2024 12:30 PM AMBULATORY - SURGERY [facility] Jul 02, 2024 02:30 PM AMBULATORY - MEDICINE [facility] Active, Pending, and Scheduled Orders This section includes a listing of several types of active, pending, and scheduled orders, including clinic medications orders, diagnostic test orders, procedure orders and consult orders; where the start date of the order is 45 days before the date of the Encounter or 45 days after the date of theEncounter. The data comes from all [facility]. Test Date/Time Test Type Test Details Facility Name Nov 21, 2023 12:00 AM Laboratory - Chemi stry Order HGA1C BLOOD SP [facility] Nov 21, 2023 12:00 AM Laboratory - Chemi stry Order VITAMIN D, 25-HYDROXY GOLD/RED SST SERUM SP [facility] Social History: Smoking Status (Most current) and Tobacco Use (All prior to encounter date) This section includes the most current, and the historical, smoking and tobacco- related health factors from the [place] facility where the Encounter took place. Current Smoking Status This section includes the most current smoking, or tobacco-related health factor, from the [place] facility where the Encounter took place. Date/Time Current Smoking Status Comment Facil ity Nov 23, 2023 11:30 AM VA-TOBACCO NEVER USED [facility] Tobacco Use History This section includes a history of the smoking, or tobacco-related health factors, that were collected on or before the date of the Encounter. The data comes from the [place] facility where the Encounter took place. Date/Time Smoking Status/Tobacco Use Comment F acility Nov 23, 2023 11:30 AM VA-TOBACCO NEVER USED [facility] Nov 23, 2023 11:30 AM VA-TOBACCO QUIT 15 YRS OR MORE [facility] Nov 14, 2023 01:18 AM ORYX ADMIT TOBACCO SCREEN NO [facility] Aug 04, 2022 11:30 AM VA-TOBACCO NEVER USED [facility] Mar 11, 2021 10:30 AM VA-TOBACCO FORMER USER [facility] Mar 11, 2021 10:30 AM VA-TOBACCO QUIT 15 YRS OR MORE [facility] Apr 19, 2018 09:07 AM VA-TOBACCO FORMER USER [facility] Apr 19, 2018 09:07 AM VA-TOBACCO QUIT 15 YRS OR MORE [facility] Jul 24, 2017 08:16 AM QUIT TOBACCO >7 YEARS AGO [facility] Apr 16, 2017 12:43 PM QUIT TOBACCO >7 YEARS AGO [facility] Feb 01, 2017 11:47 AM LIFETIME NON-USER OF TOBACCO [facility] Nov 15, 2016 09:00 AM QUIT TOBACCO >7 YEARS AGO [facility] September 11, 2016 06:27 PM QUIT TOBACCO >7 YEARS AGO [facility] Dec 09, 2015 10:17 AM QUIT TOBACCO >7 YEARS AGO [facility] Jan 05, 2015 08:22 AM CURRENT TOBACCO USER [facility] Jan 05, 2015 08:22 AM TOBACCO MEDS OFFER ED BUT DECLINED [facility] Mar 18, 2014 10:40 AM CURRENT TOBACCO USER [facility] Mar 18, 2014 10:40 AM TOBACCO MEDS OFFER ED BUT DECLINED [facility] Nov 04, 2013 09:40 AM CURRENT TOBACCO USER [facility] Nov 26, 2012 08:10 AM QUIT TOBACCO >7 YEARS AGO [facility] May 03, 2009 08:45 AM QUIT TOBACCO >7 YEARS AGO [facility] Jul 06, 2008 08:46 AM CURRENT TOBACCO USER [facility] Jul 25, 2007 12:30 PM QUIT TOBACCO >12 M O & <7 YRS AGO [facility] Jun 07, 2006 09:21 AM CURRENT TOBACCO USER [facility] Jun 07, 2006 09:21 AM TOBACCO [facility] Aug 25, 2005 11:01 AM CURRENT TOBACCO USER [facility] Aug 25, 2005 11:01 AM TOBACCO CONTEMPLATION STAGE [facility] Oct 25, 2004 10:18 AM CURRENT NON-TOBACC O USER-HX OF USE [facility] Oct 25, 2004 10:18 AM TOBACCO TERMINATION STAGE [facility] Aug 24, 2003 10:43 AM CURRENT NON-TOBACC O USER-HX OF USE [facility] Aug 24, 2003 10:43 AM TOBACCO TERMINATION STAGE [facility] Aug 05, 2002 09:55 AM CURRENT NON-TOBACC O USER-HX OF USE QUIT [facility] Apr 15, 2001 08:28 AM CURRENT NON-TOBACC O USER-HX OF USE quit in 1979 [facility] Advance Directives: All historical and current Section Date Range: From patient's date of to the date document was created. This section includes ALL of a patient's completed or amended [place] Advance and Rescinded Directives. The entries below indicate that a directive exists for the patient, but an actual copy is not included with this document. The data comes from all [place] facilities. Date Advance Directives Provider Source Oct 19, 2023 ADVANCE DIRECTIVE WANG MURILLO [facility] Dec 12, 2022 RESCINDED ADVANCE DIRECTIVE JITENDRA MEADOWS [facility] September 12, 2016 ADVANCE DIRECTIVE DISCUSSION YVETTE MEADOWS [facility] Encounter Notes: All associated encounter notes This section contains the clinical notes associated to the Encounter. Date/Time Encounter Note(s) Provider Source Dec 19, 2023 02:08 PM NONVA CONSULT: LOCAL TITLE: COMMUNITY CARE-CONSULT RESULT NOTE [facility] STANDARD TITLE: NONVA CONSULT DATE OF NOTE: DEC 19, 2023@14:08 ENTRY DATE: DEC 31, 2023@14:10:11 AUTHOR: AMANDA DEY EXP COSIGNER: URGENCY: STATUS: COMPLETED The following Community Care consult has been completed. See scanned document for report. 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
--- OUTSIDE RECORDS SUMMARY | 2024-05-17 21:50 | XMS_ITS | Encounter Summary ---
Author Name [facility] [place] [facility] [place] [facility] [place] [facility] [place] Address [address] [place] [address] Care Team Providers Care Installation Helper Name Role Phone CHARLINE QUINTEROS Primary Care [...] PART A Aug 12, 2001 PART A [id number] JESUS CASTILLO PATIENT MEDICARE (WNR) MEDICARE (M) PART B Aug 12, 2001 PART B [id number] JESUS CASTILLO PATIENT Selected Encounter This section includes the information on record at [place] for the Encounter. Date/Time Encounter Type Encounter Description Reason Provider Source Nov 23, 2023 11:30 AM OFFICE O/P EST MOD 30 MIN PRIMARY CARE/MEDICINE ICD-10-CM H81.13 Benign paroxysmal vertigo, bilateral KIBLINGER,CHARLINE IHE Encounter Template Text not used by [place] Assessments - Encounter Diagnoses This section includes the primary and secondary diagnoses documented for the Encounter. Date/Time Primary/Secondary Diagnosis Diagnosis Name Provider Source Nov 23, 2023 12:34 PM PRIMARY Benign paroxysmal vertigo, bilateral KIBLINGER,CHARLINE [facility] Nov 23, 2023 12:34 PM SECONDARY Encounter for [facility] Nov 23, 2023 12:34 PM SECONDARY Essential (primary) hypertension [facility] Nov 23, 2023 12:34 PM SECONDARY Osteoarthritis of knee, unspecified [facility] Nov 23, 2023 12:34 PM SECONDARY Unspecified macular degeneration [facility] Plan of Treatment: Future Appointments (+ 6 months) and Future Tests (+/- 45 days) The Plan of Treatment section includes future care activities for the patient [facility] [place] [facility] This section includes future appointments and future orders which are active, pending or scheduled. Future Appointments This section includes appointments that were scheduled to occur 6 months from the date of the Encounter, up to a maximum of 20 appointments. The [facility] Appointment Date/Time Appointment Type Appointme nt Facility Name Dec 24, 2023 02:45 PM AMBULATORY - SURGERY [facility] Jan 01, 2024 02:00 PM AMBULATORY - REHAB MEDICIN E [facility] Feb 29, 2024 01:30 PM AMBULATORY - MEDICINE [facility] Mar 03, 2024 09:15 AM AMBULATORY - MEDICINE [facility] Mar 08, 2024 01:30 PM AMBULATORY - MEDICINE [facility] Mar 10, 2024 12:45 PM AMBULATORY - SURGERY [facility] Apr 16, 2024 11:00 AM AMBULATORY - REHAB MEDICIN E [facility] May 15, 2024 11:00 AM AMBULATORY - SURGERY [facility] Active, Pending, and Scheduled Orders This section includes a listing of several types of active, pending, and scheduled orders, including clinic medications orders, diagnostic test orders, procedure orders and consult orders; where the start date of the order is 45 days before the date of the Encounter or 45 days after the date of theEncounter. The [facility] comes from [facility] Test Date/Time Test Type Test Details Facility Name Nov 13, 2023 09:10 PM Laboratory - Chemi stry Order MRSA SURVL NARES DNA NARES WC [facility] Nov 21, 2023 12:00 AM Laboratory - Chemi stry Order VITAMIN D, 25-HYDROXY GOLD/RED SST SERUM SP [facility] Nov 21, 2023 12:00 AM Laboratory - Chemi stry Order HGA1C BLOOD SP [facility] Lab Results: +/- 30 days of the encounter This section includes the Chemistry and Hematology Lab Results on record with [place] for the patient. Radiology Reports and Pathology Reports are provided separately, in subsequent sections. Lab Results This section contains the Chemistry/Hematology Results that were resulted 30 days before or 30 daysafter the date of the Encounter. Date/Time Source Result Type Result - Unit Interpretation Reference Range Comment Nov 14, 2023 05:33 AM [facility] TSH W/ REFLEX FT4 (STL) Specimen Type: PLASMA No comment entered. Ordering Provider: NAYLA DUNN Report Released Date/Time: Nov 14, 2023 04:23 AM Reporting Lab: [facility] [address] [facility] [facility] [address] Performing Lab: [facility] [address] [facility] [address] TSH 3.546 u[IU]/mL 0.47-5 Nov 14, 2023 05:33 AM [facility] PHOSPHOROUS Specimen Type: PLASMA Comment: No hemolysis noted. Ordering Provider: NAYLA DUNN Report Released Date/Time: Nov 14, 2023 04:23 AM Reporting Lab: [facility] [address] [facility] [address] Performing Lab: [facility] [address] [facility] [address] PHOSPHOROUS 2.9 mg/dL 2.3-4.7 Nov 14, 2023 05:33 AM [facility] MAGNESIUM Specimen Type: PLASMA Comment: No hemolysis noted. Ordering Provider: NAYLA DUNN Report Released Date/Time: Nov 14, 2023 04:23 AM Reporting Lab: [facility] [address] [place] [phone] Performing Lab: [address] [address] MAGNESIUM 2.1 mg/dL 1.6-2.6 Nov 14, 2023 05:33 AM [facility] BASIC METABOLIC PANEL Specimen Type: PLASMA Comment: No hemolysis noted. Ordering Provider: NAYLA DUNN Report Released Date/Time: Nov 14, 2023 04:23 AM Reporting Lab: [address] [address] Performing Lab: [address] [address] CREATININE 0.78 mg/dL 0.7-1.3 UREA NITROGEN 12.0 mg/dL 9.0-25.0 GLUCOSE 83 mg/dL 72-99 SODIUM 136 meq/L 136-145 POTASSIUM 4.4 meq/L 3.5-5 CHLORIDE 103 meq/L 98-107 CARBON DIOXIDE 26 meq/L 22-31 CALCIUM 8.8 mg/dL 8.4-10.4 EGFR (CKD-EPI 2020) 86.3 >60 Nov 14, 2023 05:33 AM [facility] CBC Specimen Type: BLOOD Comment: Manual diff performed on 11/13/23 Ordering Provider: NAYLA DUNN Report Released Date/Time: Nov 14, 2023 04:23 AM Reporting Lab: [address] [address] Performing Lab: [address] [address] WBC 12.8 10*3/uL H 3.6-11.2 RBC 3.87 [...] 10*3/uL 0.00-0.20 Nov 14, 2023 01:30 AM [facility] TROPONIN I Specimen Type: PLASMA No comment entered. Ordering Provider: NAYLA DUNN Report Released Date/Time: Nov 14, 2023 01:10 AM Reporting Lab: [address] [address] Performing Lab: [address] [address] TROPONIN I 0.044 ng/mL H 0-0.033 Nov 13, 2023 10:00 PM [facility] MRSA SURVL NARES DNA Specimen [...] Nov 13, 2023 09:10 PM Reporting Lab: [address] [address] Performing Lab: [address] [address] MRSA SURVL NARES DNA Negative Negative Nov 13, 2023 07:10 PM [facility] TROPONIN I Specimen Type: PLASMA No comment entered. Ordering Provider: CYRUS EVANS Report Released Date/Time: Nov 13, 2023 06:56 PM Reporting Lab: [address] [address] Performing Lab: [address] [address] TROPONIN I 0.045 ng/mL H 0-0.033 Nov 13, 2023 06:20 PM [facility] BLOOD GAS PANEL ABG (L) Specimen Type: VENOUS BLOOD Comment: Test Performed by: [id number] Meter #: [id number] Ordering Provider: CYRUS EVANS Report Released Date/Time: Nov 13, 2023 06:20 PM Reporting Lab: [address] [address] Performing Lab: [address] [address] GEM PH 7.38 7.31-7.41 GEM PCO2 52 [...] TEMP 37.0 Nov 13, 2023 06:15 PM [facility] COVID-19 DIAGNOSTIC (FLU/RSV)(STL) Specimen Type: [...] Nov 13, 2023 03:21 PM Reporting Lab: [facility] [address] [facility] [address] Performing Lab: [facility] [address] [place] [phone] INFLUENZA A Negative Negative INFLUENZA B Negative Negative COVID-19 (STL-PB) Not Detected Not Detected RSV (Cepheid) NEGATIVE Negative Nov 13, 2023 06:00 PM [facility] PT/INR NEW (L-MA) Specimen Type: PLASMA No comment entered. Ordering Provider: CYRUS EVANS Report Released Date/Time: Nov 13, 2023 03:21 PM Reporting Lab: [facility] [address] [facility] [address] Performing Lab: [facility] [address] [place] [phone] PROTIME 12.7 s H 9.4-12.5 INR VALUE 1.1 {INR} Nov 13, 2023 06:00 PM [facility] APTT Specimen Type: PLASMA No comment entered. Ordering Provider: CYRUS EVANS Report Released Date/Time: Nov 13, 2023 03:21 PM Reporting Lab: [facility] [address] [facility] [address] Performing Lab: [facility] [address] [place] [phone] APTT 33.7 s 26.7-39.9 Nov 13, 2023 04:59 PM [facility] URINALYSIS W/ CX REFLEX (L-PB) Specimen Type: URINE No comment entered. Ordering Provider: CYRUS EVANS Report Released Date/Time: Nov 13, 2023 03:12 PM Reporting Lab: [facility] [address] [place] [phone] Performing Lab: [facility] [address] [place] [phone] URINE COLOR Yellow Yellow U.BILIRUBIN Negative mg/dL [...] 1.005-1.02 9 Nov 13, 2023 02:20 PM [facility] TROPONIN I Specimen Type: PLASMA Comment: No hemolysis noted. Ordering Provider: CYRUS EVANS Report Released Date/Time: Nov 13, 2023 02:14 PM Reporting Lab: [facility] [address] [place] [phone] Performing Lab: [address] [address] TROPONIN I 0.044 ng/mL H 0-0.033 Nov 13, 2023 02:20 PM [facility] COMPREHENSIVE METABOLIC PANEL Specimen Type: PLASMA Comment: No hemolysis noted. Ordering Provider: CYRUS EVANS Report Released Date/Time: Nov 13, 2023 02:14 PM Reporting Lab: [address] [address] Performing Lab: [address] [address] CREATININE 1.17 mg/dL 0.7-1.3 UREA NITROGEN 12.7 [...] 60.3 >60 Nov 13, 2023 02:20 PM [facility] CBC Specimen Type: BLOOD No comment entered. Ordering Provider: CYRUS EVANS Report Released Date/Time: Nov 13, 2023 02:14 PM Reporting Lab: [address] [address] Performing Lab: [place] [address] [facility] [address] WBC 12.5 10*3/uL H 3.6-11.2 RBC 4.21 [...] 66 122/60 16 97 0 187 25 [facility] Immunizations: All administered on the encounter date This section contains immunizations associated to the Encounter. Immunization Series Date Issued Reaction Comments ZOSTER RECOMBINANT 2 Nov 23, 2023 Social History: Smoking Status (Most current) and [...] 23, 2023 11:30 AM VA-TOBACCO NEVER USED [facility] Tobacco Use History This section includes a history of the smoking, or tobacco-related health factors, that were collected on or before the date of the Encounter. The data comes from the [place] facility where the Encounter took place. Date/Time Smoking Status/Tobacco Use Comment Lynnette acbailey Nov 23, 2023 11:30 AM VA-TOBACCO NEVER USED [facility] Nov 23, 2023 11:30 AM VA-TOBACCO QUIT 15 YRS OR MORE [facility] Nov 14, 2023 01:18 AM ORYX ADMIT TOBACCO SCREEN NO [facility] Aug 04, 2022 11:30 AM VA-TOBACCO NEVER USED [facility] Mar 11, 2021 10:30 AM VA-TOBACCO FORMER USER [facility] Mar 11, 2021 10:30 AM VA-TOBACCO QUIT 15 YRS OR MORE [facility] Apr 19, 2018 09:07 AM VA-TOBACCO FORMER USER [facility] Apr 19, 2018 09:07 AM VA-TOBACCO QUIT 15 YRS OR MORE [facility] Jul 24, 2017 08:16 AM QUIT TOBACCO >7 YEARS AGO [facility] Apr 16, 2017 12:43 PM QUIT TOBACCO >7 YEARS AGO [facility] Feb 01, 2017 11:47 AM LIFETIME NON-USER OF TOBACCO [facility] Nov 15, 2016 09:00 AM QUIT TOBACCO >7 YEARS AGO [facility] September 11, 2016 06:27 PM QUIT TOBACCO >7 YEARS AGO [facility] Dec 09, 2015 10:17 AM QUIT TOBACCO >7 YEARS AGO [facility] Jan 05, 2015 08:22 AM CURRENT TOBACCO USER [facility] Jan 05, 2015 08:22 AM TOBACCO MEDS OFFER ED BUT DECLINED [facility] Mar 18, 2014 10:40 AM CURRENT TOBACCO USER [facility] Mar 18, 2014 10:40 AM TOBACCO MEDS OFFER ED BUT DECLINED [facility] Nov 04, 2013 09:40 AM CURRENT TOBACCO USER [facility] Nov 26, 2012 08:10 AM QUIT TOBACCO >7 YEARS AGO [facility] May 03, 2009 08:45 AM QUIT TOBACCO >7 YEARS AGO [facility] Jul 06, 2008 08:46 AM CURRENT TOBACCO USER [facility] Jul 25, 2007 12:30 PM QUIT TOBACCO >12 M O & <7 YRS AGO [facility] Jun 07, 2006 09:21 AM CURRENT TOBACCO USER [facility] Jun 07, 2006 09:21 [facility] Aug 25, 2005 11:01 AM CURRENT TOBACCO USER [facility] Aug 25, 2005 11:01 AM TOBACCO CONTEMPLATION STAGE [facility] Oct 25, 2004 10:18 AM CURRENT NON-TOBACC O USER-HX OF USE [facility] Oct 25, 2004 10:18 AM TOBACCO TERMINATION STAGE [facility] Aug 24, 2003 10:43 AM CURRENT NON-TOBACC O USER-HX OF USE [facility] Aug 24, 2003 10:43 AM TOBACCO TERMINATION STAGE [facility] Aug 05, 2002 09:55 AM CURRENT NON-TOBACC O USER-HX OF USE QUIT [facility] Apr 15, 2001 08:28 AM CURRENT NON-TOBACC O USER-HX OF USE quit in 1979 [facility] Advance Directives: All historical and [...] Oct 19, 2023 ADVANCE DIRECTIVE WANG MURILLO [facility] Dec 12, 2022 RESCINDED ADVANCE DIRECTIVE JITENDRA MEADOWS [facility] September 12, 2016 ADVANCE DIRECTIVE DISCUSSION YVETTE MEADOWS [facility] Radiology Reports: +/- 30 days of the [...] the Encounter. The data comes from all [place] treatment facilities. Date/Time Radiology Report Provider Source Nov 23, 2023 09:03 AM NM MYOCARDIAL P SPECT STRESS/REST-P: JESUS CASTILLO [id number] -[id number] M Exm Date: NOV 23, 2023@09:03 Req Phys: CHARLINE QUINTEROS Loc: [facility]-PC TM-C SAME DAY CLINIC (Re Img Loc: [facility]-NUCLEAR MEDICINE Service: Unknown [facility], [facility] [address] [place] [address] (Case [id number] COMPLETE) NM MYOCARDIAL PERF SPECT STRESS/R(NM Detailed) CPT:37384 Reason for Study: CHEST PAIN, ASSESS SUSPECTED [...] 23, 2023 Date Verified: NOV 23, 2023 Service Support Representative E-Sig:/ES/AGUSTO GOVEA Report: PATIENT NAME: JESUS CASTILLO CASE #: [id number], [id number], [id number] EXAMINATION: Rest/Lexiscan Stress Gated SPECT Myocardial Imaging [...] code: 1000. Dictated by Rik Brand MD (Foundry Metallurgist), Rodney Smith MD (Foundry Metallurgist) I, Agusto Govea, have reviewed the images and report and concur with these findings. Primary Interpreting Staff: AGUSTO GOVEA, RADIOLOGIST (Service Support Representative) Primary Interpreting Resident: RIK BRAND MD, SURFACE GRINDING MACHINE HAND /AGUSTO SEN [facility] Nov 13, 2023 04:[address] HEAD W/O CONT: JESUS CASTILLO [id number] -[id number] M Exm Date: NOV 13, 2023@16:07 Req Phys: CYRUS EVANS Loc: [facility]-EMERGENCY DEPT 2ND SHIFT (R Img Loc: [facility]-CT IMAGING [facility] Service: Unknown [facility], [facility] [address] [place] [address] (Case [id number] COMPLETE) CT HEAD W/O CONT (CT Detailed) CPT:33260 Reason for Study: confusion Clinical History: Responsible Attending: cyrus evans Attending Contact Number: [phone] Resident Contact Number: Allergies listed in CPRS chart: Patient has answered NKA Creatinine: CREATININE 1.17 mg/dL 11/13/2023 14:20 /eGFR: STL EGFR (within one year). CREATININE 1.17 mg/dL (11/13/23 14:20) Wt: 189.3 lb [85.87 kg] (10/18/2023 10:32) History of: Renal failure, chronic or acute renal disease: NO Report Status: Verified Date Reported: NOV 13, 2023 Date Verified: NOV 13, 2023 Service Support Representative E-Sig: Report: CT HEAD W/O CONT HISTORY: confusion COMPARISON: CT head 06/11/2019 TECHNIQUE: Contiguous axial CT images from the level of the skull base through the skull apex, performed at the local [place] facility. 269 images were received by the [place] National Teleradiology Program (NTP) for interpretation. RADIATION [...] clinical concern, consider MRI. READING PHYSICIAN: Anjum [id number] 11/13/2023 15:14 PDT [facility] National Teleradiology Program [phone] (For Medical Practitioner Use Only) Attention Patients / Veterans: If you have questions or concerns about these test results, please contact your ordering provider or primary care team. Primary Interpreting Staff: RADIOLOGY,OUTSIDE SERVICE, Staff Physician / RADIOLOGY,OUTSIDE SERVICE [facility] Nov 13, 2023 03:59 PM CHEST X-RAY, 2 VIEWS: JESUS CASTILLO [id number] -[id number] Ex Date: NOV 13, 2023@15:59 Req Phys: CYRUS EVANS Loc: -EMERGENCY DEPT 2ND SHIFT (R Img Loc: -MAIN RADIOLOGY SUITE Service: [facility], [facility] [address] [place] [address] (Case [id number] COMPLETE) CHEST X-RAY, 2 VIEWS (RAD Detailed) CPT:24654 Reason for Study: chest pain Clinical History: Report Status: Verified Date Reported: NOV 13, 2023 Date Verified: NOV 13, 2023 Service Support Representative E-Sig:/ES/AGUSTO GOVEA Report: INDICATION: chest pain COMPARISON: None TECHNIQUE: Chest 2 views Impression: No large pleural effusion or sizable pneumothorax. No new focal consolidation. Unchanged cardiomediastinal silhouette. Primary Interpreting Staff: AGUSTO GOVEA, RADIOLOGIST (Service Support Representative) /AGUSTO HOOVER [facility] Pathology Reports: +/- 30 days of [...] the Encounter. The data comes from all [place] treatment facilities. Date/Time Pathology Report Provider Source Nov 13, 2023 06:10 PM LR MICROBIOLOGY RE PORT: Accession [UID]: [id number] [[id number]] Received: Nov 13, 2023@18:22 Collection sample: B [...] --=--=--=--=--=--=-- Performing Laboratory: Bacteriology Report Performed By: [facility] [address] [place] [address] CLIA# [id number] [address] [place] [phone] [facility] Nov 13, 2023 06:05 PM LR MICROBIOLOGY RE PORT: Accession [UID]: [id number] [[id number]] Received: Nov 13, 2023@18:23 Collection sample: B [...] --=--=--=--=--=--=-- Performing Laboratory: Bacteriology Report Performed By: [facility] [address] [place] [address] CLIA# [id number] [address] [place] [phone] [facility] Encounter Notes: All associated encounter notes This section contains the clinical notes associated to the Encounter. Date/Time Encounter Note(s) Provider Source Nov 26, 2023 09:14 AM PHYSICIAN LETTERS: LOCAL TITLE: TEST RESULT GENERAL LETTER STL STANDARD TITLE: PHYSICIAN LETTERS DATE OF NOTE: NOV 26, 2023@09:14 ENTRY DATE: NOV 26, 2023@09:14:50 AUTHOR: CHARLINE QUINTEROS COSIGNER: URGENCY: STATUS: COMPLETED [address] [address] NOV 26, 2023 JESUS CA[address]ILLO [address] [place], [place] [address] Dear Jesus Castillo, I would like to update you on your recent test results. Good news! Your stress test was normal. This is reassuring with the rest of your heart evaluation that there is no cardiac issue going on. STRESS TEST: 1. No evidence of stress induced ischemia. 2. Normal left ventricle contractility with LVEF of 76%. Dr. Charline Quinteros Physician, Primary Care [address] [place] [address] Clinic Clinic FUTURE APPOINTMENTS: 12/24/2023 14:45 HAL-OPHTH RETINA MON 1 02/29/2024 13:30 HAL-PACT C6 PCP Sincerely, CHARLINE QUINTEROS MD STAFF PHYSICIAN JESUS CASTILLO,[facility] Nov 23, 2023 11:40 AM NURSING NOTE: LOCAL TITLE: V15 PACT FACE TO FACE NOTE ST STANDARD TITLE: NURSING NOTE DATE OF NOTE: NOV 23, 2023@11:40 ENTRY DATE: NOV 23, 2023@11:40:06 AUTHOR: BITA IRVIN EXP COSIGNER: URGENCY: STATUS: COMPLETED Provider Visit: Patient Identifiers : Full Name Date of Reason for visit: Established Follow-Up Mode of Arrival: Ambulatory Allergy Review: Patient has answered NKA Allergy list reviewed and remains current. Recent Vital Signs: Temperature: 97.3 F [36.3 C] (11/23/2023 11:38) Pulse: 66 (11/23/2023 11:38) Respiration: 16 (11/23/2023 11:38) B/P: 122/60 (11/23/2023 11:38) Pain: 0 (11/23/2023 11:38) Wt: 187 lb [84.82 kg] (11/23/2023 11:38) Ht: 73 in [185.4 cm] (05/18/2023 10:28) BMI: 24.7 POX: 97% (11/23/2023 11:38) Would you like to discuss any personal problem, family problem, alcohol use, drug use, or a mental or emotional illness? No Contact provided Primary Care phone number and encouraged to call if any questions or concerns. Review that after hours nurse line ext.[phone] and emergency room are available 04/12 for patient use. Contact verbalized good understanding. Homelessness/Food Insecurity Screen: In the past 2 months, have you been living in stable housing that you own, rent, or stay in as part of a household? Yes - Living in stable housing. Are you worried or concerned that in the next 2 months you may NOT have stable housing that you own, rent, or stay in as part of a household? No - Not worried about housing near future [facility] [place] reports the following: Within the past 12 months, you worried whether your food would run out before you got money to buy more. Never true Within the past 12 months, the food you bought just didn't last and you didn't have money to get more. Never true Frail/Elderly Screen: ADL Screen - Potter Index of Hitchcock in Activities of Daily Living Bathing: (3 Points) Receives no assistance (gets in and out of tub by self, if tub is usual means of bathing) Dressing: (3 Points) Gets clothes and gets completely dressed without assistance. Toileting: (3 Points) Goes to toilet room , cleans self, and arranges clothes without assistance (may use object for support such as cane, walker, or wheelchair, and may manage own night bedpan or commode, emptying same next morning) Transferring: (3 Points) Moves in and out of bed and in and out of chair without assistance (may be using object for support, such as cane or walker) Continence: (3 Points) Controls urination and bowel movement completely by self Feeding: (3 Points) Feeds self without assistance Total Score: 18 Points 18 = High (patient independent) 6 = Low (patient very dependent) Incontinence Screen: No incontinence. Herpes Zoster (Shingles) Vaccine: Administered: ZOSTER RECOMBINANT Date Administered: Nov 23, 2023 11:30 Series: Series 2 Operations Program Manager: [employer] Lot: [id number] Exp Date: Oct 25, 2025 [facility]: [phone] Admin Route/Site: INTRAMUSCULAR/RIGHT DELTOID Dosage: 0.5mL Vaccine Information Statement(s): RECOMBINANT ZOSTER VACCINE VIS Jun 17, 2021 (GAMBIAN) Order By: Charline Quinteros Administered By: Bita Irvin Vaccine Information Sheet (VIS) was given to the patient/caregiver, education regarding adverse reactions was discussed, as well as barriers to learning, if any, were acknowledged. Tobacco Use Screening: The patient is a former tobacco user. The patient quit fifteen or more years ago. 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 His granddaughter Cassandra Burns is the main contact [phone]. Interval Hx: -last PCP visit: 05/18/23 -05/21/23 optho --10/2023 multiple ER visits d/t dizziness and chest pain with neg cardiac findings -[facility] with negative infectious and cardiac workup, PT and OT recommend home with no further needs Chronic conditions: -Vision loss: stable, seen by optho 07/2023, ambulates with cane -Hearing loss: hearing aides in place New complaints: -VERTIGO: refer to vestibular clinic [facility]. Does get better after meclizine. Agrees to compression stockings for orthostatic component. -LEFT KNEE OA: phys therapy left knee brightly snf -Cardiac workup: so far negative, stress test today. Likely all MSK pain. -Suspect stepwise progression of vascular dementia and overall doing well for his age. Recommend social work discussion of additional resources that we could offer. REVIEW OF SYSTEMS: All 10 systems reviewed and negative except as noted above MEDICAL HISTORY: 1) Coronary artery disease (SNOMED CT 73987277) 2) Hyperlipidaemia (SNOMED CT 65627132) 3) Allergic rhinitis * (ICD-9-CM 477.9) 4) Carcinoma, Basal Cell 5) Osteoarthritis of knee (SNOMED CT 736716636) 6) Age related macular degeneration (SNOMED CT 455506369) 7) Colonic Polyps 8) Diabetes Mellitus without mention of Complication, type II or unspecified type, 9) Benign essential hypertension (SNOMED CT 6308380) 10) Pain in joint involving shoulder region [...] 780.79) 19) History/Skin/CA 20) Dermatitis (SNOMED CT 321827403) 21) Dry skin (SNOMED CT 79875335) 22) Chest pain 23) Exudative age-related macular degeneration 24) Hyperlipidemia 25) Diabetes mellitus 26) Insomnia 27) Osteoarthritis of knee SURGICAL HISTORY 08/2017 left eye cataract extraction with lens implant 11/2017 right eye cataract with lens implant BCC s/p MOHS Left total knee arthroplasty 2016 TURBT for bladder cancer 2015 FAMILY HISTORY Two brothers aged 82 and 80 in good health, no medical problems SOCIAL HISTORY TOBACCO- Never ALCOHOL- rare ILLICITS- none LIVES- [facility] with spouse age 88, previously lived [place] [address]. 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 - [employer] 4 years served in [employer], retired ALLERGIES reviewed Active Outpatient Medications (including Supplies): Active Outpatient Medications Status 1) BENZONATATE 200MG CAP TAKE ONE CAPSULE BY MOUTH THREE ACTIVE TIMES A DAY NEEDED FOR COUGH 2) CHOLECALCIF 50MCG (D3-2,000UNIT) TAB TAKE ONE TABLET ACTIVE BY MOUTH ONCE A DAY FOR VITAMIN D DEFICIENCY 3) DICLOFENAC NA 1% TOP GEL APPLY 2 GM TO AFFECTED ACTIVE AREA(S) FOUR TIMES A DAY FOR PAIN NOT MORE THAN 16 GRAMS DAILY TO ANY LOWER EXTREMITY JOINT. NOT MORE THAN 8 GRAMS DAILY TO ANY UPPER EXTREMITY JOINT. MAX 32GM/DAY OVER ALL JOINTS. (MEASURE DOSE WITH RULER ATTACHED INSIDE BOX) APPLY PRESCRIBED TO RIGHT SHOULDER 4) MECLIZINE HCL 25MG CHEW TAB CHEW AND SWALLOW ONE-HALF ACTIVE TABLET BY MOUTH THREE TIMES A DAY NEEDED FOR VERTIGO CHEWABLE TABLETS MAY BE CHEWED OR SWALLOWED WHOLE. MAY CAUSE DROWSINESS. 5) ROSUVASTATIN CA 40MG TAB TAKE ONE-HALF TABLET BY ACTIVE (S) MOUTH EVERY EVENING TO LOWER CHOLESTEROL 6) SODIUM CHLORIDE 0.65% SOLN NASAL SPRAY USE 2 SPRAYS ACTIVE INTO NOSTRIL(S) EVERY 4 HOURS NEEDED FOR NASAL CONGESTION Active Non-[facility] Medications Status 1) Non-VA ASPIRIN 81MG EC TAB 81MG BY MOUTH ONCE A DAY ACTIVE 2) Non-VA MULTIVITAMIN/OPHTH ANTIOX/LUTEIN CAP/TAB 1 ACTIVE CAP/TAB BY MOUTH ONCE A DAY 8 Total Medications PHSYICAL EXAM: Temperature:97.3 F [36.3 C] (11/23/2023 11:38) Blood Pressure:122/60 (11/23/2023 11:38) Pulse: 66 (11/23/2023 11:38) Respirations: 16 (11/23/2023 11:38) O2 Saturation: 97% (11/23/2023 11:38) Height: 73 in [185.4 cm] (05/18/2023 10:28) Weight: 187 lb [84.82 kg] (11/23/2023 11:38) BMI: 24.7 General: Sitting in chair, pleasant, in no acute distress Skin: No rashes, bruising, or abrasions noted HEENT: NC, AT, Pupils equal and reactive, EOMI, MMM, No JVD. HEARING AIDES PRESENT. Lungs: CTAB, No wheezes or crackles, good air movement Cardiovascular: Regular rate and rhythm, no murmur noted Abdominal: Soft, Non-tender, non-distended, active bowel sounds, No organomegaly Extremities: Moving all extremities. Pulses intact bilaterally, no edema in BLE. IV IN LEFT ARM FOR STRESS TEST Neuro: Alert and oriented x3. Cranial nerves grossly intact, No focal deficits LABS: reviewed and notable [...] significant change. 05/03/2023 CHEST X-RAY, 2 VIEWS [id number] Verified [id number] No acute cardiopulmonary process. 03/17/2022 [...] - Tdap (q10y): 2017 - Influenza (annual): due - Pneumococcal: pneumococcal 2001, PCV13 2014 - Zoster (2 doses 50y+): #1 05/18/23 #2 11/23/23 - COVID vaccine: x2, 05/18/23 - HIV (once 15-65y): low risk, declined - Hep C (once 18-79y): nonreactive 2000 ==PREVENTATIVE CARE== - PSA (q2y men 55-69): aged out - Colorectal cancer screening (50-75y): 2013, now aged out. ==TOBACCO USE== - never smoker ASSESSMENT & PLAN: CARDIOVASCULAR DISEASE PREVENTION -Lipid profile: CALCULATED LDL 82 mg/dL 05/18/2023 10:09 ____ -A1c: HGA1C 7.3 H % 05/18/2023 10:09 -Tobacco cessation: never smoker -ASA: 81mg taking CAD s/p ?stent -chest pain episode 05/03 active, ER workup negative for cardiac etiology -continue ASA 81 daily -rosuvastatin 20mg QHS -not on BB or ACEi d/t lightheadedness and falls -TTE 03/2022 with EF 60-65%, G1DD -stress test: 2019 wnl, has multiple prior stress tests all normal PLAN -repeat TTE 11/2023 with EF 70% and no changes from 2021 -stress test today pending VERTIGO -[facility] for vertigo/vestibular clinic near home [...] by ID completed, no further evaluation/treatment indicated TYPE 2 DIABETES , DIET CONTROLLED - Complications: none - Last A1C: 7.3% in 05/2023 - Microalbumin/creat: negative - LDL: 62 PLAN - Medications: diet controlled - Last eye appt: 07/30/23 no retinopathy - Foot exam: normal 05/18/23 - Diabetes education completed WET MACULAR DEGENERATION -[facility] or comes with family -continue eye drops, vitamin OSTEOARTHRITIS RIGHT KNEE -s/p replacement -diclofenac gel PRN -physical therapy referral 11/22/21 via [facility] due to difficulty traveling HEMORRHOIDS -phenylephrine suppositories PRN RTC in 3 Months(recheck a1c and vitD) Charline Quinteros M.D. Physician, Internal Medicine Primary Care Team C6 PCP 11/23/23 9:00 am [facility] [phone] 11/23/23 10:00 am [facility] STRESS [phone] 11/23/23 11:30 am [facility]PA[facility] C6 PCP 12/24/23 2:45 pm [facility] RETINA MON REMINDERS RHS Screen: RHS Screen Session Format: Face to Face Environmental Check Screening was not completed at this time due to: Another adult present Frail/Elderly Screen: IADL Screen - Milana Instrumental Activities of Daily Living Scale Ability to use telephone: (1 point) Operates Telephone on own initiative; looks up and dials numbers. Shopping: (0 points) Needs to be accompanied on any shopping trip. Food preparation: (0 points) Needs to have meals prepared and served. Housekeeping: (1 point) Performs light daily tasks such as dishwashing, bed making. Laundry: (1 point) Launders small items, rinses socks, stockings, etc. Mode of transportation: (0 points) Travel limited to taxi or automobile with assistance of another. Responsibility for own medications: (1 point) Is responsible for taking medications in correct dosages at correct times. Ability to handle finances: (1 point) Manages day-to-day purchases, but needs help with banking, major purchases, etc. Total score: 5 points 8 = High function, independent 0 = Low function, dependent Falls Screen: No falls within the past 12 months. Tobacco Use Screening: The patient has never used tobacco. /manuel/ CHARLINE QUINTEROS MD STAFF PHYSICIAN Signed: 11/23/2023 12:34 11/26/2023 ADDENDUM STATUS: COMPLETED 1. No evidence of stress induced ischemia. 2. Normal left ventricle contractility with LVEF of 76%. --- Call Cassandra with results above, no response. Left VM. Will send test result letter /pennie QUINTEROS MD STAFF PHYSICIAN Signed: 11/28/2023 12:27 CHARLINE QUINTEROS [facility]
--- OUTSIDE RECORDS SUMMARY | 2024-05-17 21:50 | XMS_ITS ---
Author Name [facility] [place] [facility] [place] Address [address] [place] [address] Care Team Providers Care Entry Level Drafter Name Role Phone MEAGHAN QUINTEROS Primary Care [...] PART B Aug 12, 2001 PART B [id number] [phone] JESUS ABRAHAM PATIENT MEDICARE (WNR) MEDICARE (M) PART A Aug 12, 2001 PART A [id number] LEIGHJESUS PATIENT Selected Encounter This section includes the information on record at [place] for the Encounter. Date/Time Encounter Type Encounter Description Reason Pro vider Source Nov 23, 2023 10:57 AM Outpatient Encounter EVENT (HISTORICAL) IHE Encounter Template Text not used by [place] Plan of Treatment: Future Appointments (+ 6 [...] 20 appointments. The data comes from all [facility]. Appointment Date/Time Appointment Type Appointme nt Facility Name Dec 24, 2023 02:45 PM AMBULATORY - SURGERY [facility] Jan 01, 2024 02:00 PM AMBULATORY - REHAB MEDICIN E [facility] Feb 29, 2024 01:30 PM AMBULATORY - MEDICINE [facility] Mar 03, 2024 09:15 AM AMBULATORY - MEDICINE [facility] Mar 08, 2024 01:30 PM AMBULATORY - MEDICINE [facility] Mar 10, 2024 12:45 PM AMBULATORY - SURGERY [facility] Apr 16, 2024 11:00 AM AMBULATORY - REHAB MEDICIN E [facility] May 15, 2024 11:00 AM AMBULATORY - SURGERY [facility] Active, Pending, and Scheduled Orders This section includes a listing of several types of active, pending, and scheduled orders, including clinic medications orders, diagnostic test orders, procedure orders and consult orders; where the start date of the order is 45 days before the date of the Encounter or 45 days after the date of theEncounter. The data comes from all [facility]. Test Date/Time Test Type Test Details Facility Name Nov 13, 2023 09:10 PM Laboratory - Chemi stry Order MRSA SURVL NARES DNA [facility]AR[facility] Nov 21, 2023 12:00 AM Laboratory - Chemi stry Order HGA1C BLOOD SP [facility] Nov 21, 2023 12:00 AM Laboratory - Chemi stry Order VITAMIN D, 25-HYDROXY GOLD/RED SST SERUM SP [facility] Lab Results: +/- 30 days of the [...] Range Comment Nov 14, 2023 05:33 AM [facility] TSH W/ REFLEX FT4 (STL) Specimen Type: PLASMA No comment entered. Ordering Provider: NAYLA DUNN Report Released Date/Time: Nov 14, 2023 04:23 AM Reporting Lab: [facility] [address] [facility] [address] Performing Lab: [facility] [address] [facility] [address] TSH 3.546 u[IU]/mL 0.47-5 Nov 14, 2023 05:33 AM [facility] MAGNESIUM Specimen Type: PLASMA Comment: No hemolysis noted. Ordering Provider: NAYLA DUNN Report Released Date/Time: Nov 14, 2023 04:23 AM Reporting Lab: [address] [address] Performing Lab: [address] [address] MAGNESIUM 2.1 mg/dL 1.6-2.6 Nov 14, 2023 05:33 AM [facility] PHOSPHOROUS Specimen Type: PLASMA Comment: No hemolysis noted. Ordering Provider: NAYLA DUNN Report Released Date/Time: Nov 14, 2023 04:23 AM Reporting Lab: [facility] [address] [facility] [address] Performing Lab: [address] [address] PHOSPHOROUS 2.9 mg/dL 2.3-4.7 Nov 14, 2023 05:33 AM [facility] BASIC METABOLIC PANEL Specimen Type: PLASMA Comment: No hemolysis noted. Ordering Provider: NAYLA DUNN Report Released Date/Time: Nov 14, 2023 04:23 AM Reporting Lab: [address] [address] Performing Lab: [address] [address] CREATININE 0.78 mg/dL 0.7-1.3 UREA NITROGEN 12.0 mg/dL 9.0-25.0 GLUCOSE 83 mg/dL 72-99 SODIUM 136 meq/L 136-145 POTASSIUM 4.4 meq/L 3.5-5 CHLORIDE 103 meq/L 98-107 CARBON DIOXIDE 26 meq/L 22-31 CALCIUM 8.8 mg/dL 8.4-10.4 EGFR (CKD-EPI 2020) 86.3 >60 Nov 14, 2023 05:33 AM [facility] CBC Specimen Type: BLOOD Comment: Manual diff performed on 11/13/23 Ordering Provider: NAYLA DUNN Report Released Date/Time: Nov 14, 2023 04:23 AM Reporting Lab: [address] [address] Performing Lab: [address] [address] WBC 12.8 10*3/uL H 3.6-11.2 RBC 3.87 [...] 10*3/uL 0.00-0.20 Nov 14, 2023 01:30 AM [facility] TROPONIN I Specimen Type: PLASMA No comment entered. Ordering Provider: NAYLA DUNN Report Released Date/Time: Nov 14, 2023 01:10 AM Reporting Lab: [facility] [address] [facility] [address] Performing Lab: [address] [address] TROPONIN I 0.044 ng/mL H 0-0.033 Nov 13, 2023 10:00 PM [facility] MRSA SURVL NARES DNA Specimen Type: NARES [...] Nov 13, 2023 09:10 PM Reporting Lab: [address] [address] Performing Lab: [address] [address] MRSA SURVL NARES DNA Negative Negative Nov 13, 2023 07:10 PM [facility] TROPONIN I Specimen Type: PLASMA No comment entered. Ordering Provider: CYRUS EVANS Report Released Date/Time: Nov 13, 2023 06:56 PM Reporting Lab: [address] [address] Performing Lab: [address] [address] TROPONIN I 0.045 ng/mL H 0-0.033 Nov 13, 2023 06:20 PM [facility] BLOOD GAS PANEL ABG ([facility]) Specimen Type: VENOUS BLOOD Comment: Test Performed by: [id number] Meter #: [id number] Ordering Provider: CYRUS EVANS Report Released Date/Time: Nov 13, 2023 06:20 PM Reporting Lab: [address] [address] Performing Lab: [facility] [address] [facility] [address] GEM PH 7.38 7.31-7.41 GEM PCO2 52 [...] TEMP 37.0 Nov 13, 2023 06:15 PM [facility] COVID-19 DIAGNOSTIC (FLU/RSV)(STL) Specimen Type: NASOPHARYNX Comment: [...] Nov 13, 2023 03:21 PM Reporting Lab: [address] [address] Performing Lab: [address] [address] INFLUENZA A Negative Negative INFLUENZA B Negative Negative COVID-19 (STL-PB) Not Detected Not Detected RSV (Cepheid) NEGATIVE Negative Nov 13, 2023 06:00 PM [facility] APTT Specimen Type: PLASMA No comment entered. Ordering Provider: CYRUS EVANS Report Released Date/Time: Nov 13, 2023 03:21 PM Reporting Lab: [address] [address] Performing Lab: [address] [address] APTT 33.7 s 26.7-39.9 Nov 13, 2023 06:00 PM [facility] PT/INR NEW (STL-MA) Specimen Type: PLASMA No comment entered. Ordering Provider: CYRUS EVANS Report Released Date/Time: Nov 13, 2023 03:21 PM Reporting Lab: [address] [address] Performing Lab: [address] [address] PROTIME 12.7 s H 9.4-12.5 INR VALUE 1.1 {INR} Nov 13, 2023 04:59 PM [facility] URINALYSIS W/ CX REFLEX (L-PB) Specimen Type: URINE No comment entered. Ordering Provider: CYRUS EVANS Report Released Date/Time: Nov 13, 2023 03:12 PM Reporting Lab: [address] [address] Performing Lab: [address] [address] URINE COLOR Yellow Yellow U.BILIRUBIN Negative mg/dL [...] 1.005-1.02 9 Nov 13, 2023 02:20 PM [facility] TROPONIN I Specimen Type: PLASMA Comment: No hemolysis noted. Ordering Provider: CYRUS EVANS Report Released Date/Time: Nov 13, 2023 02:14 PM Reporting Lab: [place] [address] [facility] [address] Performing Lab: [address] [address] TROPONIN I 0.044 ng/mL H 0-0.033 Nov 13, 2023 02:20 PM [facility] COMPREHENSIVE METABOLIC PANEL Specimen Type: PLASMA Comment: No hemolysis noted. Ordering Provider: CYRUS EVANS Report Released Date/Time: Nov 13, 2023 02:14 PM Reporting Lab: [address] [address] Performing Lab: [address] [address] CREATININE 1.17 mg/dL 0.7-1.3 UREA NITROGEN 12.7 [...] 60.3 >60 Nov 13, 2023 02:20 PM [facility] CBC Specimen Type: BLOOD No comment entered. Ordering Provider: CYRUS EVANS Report Released Date/Time: Nov 13, 2023 02:14 PM Reporting Lab: [facility] [address] [facility] [address] Performing Lab: [facility] [address] [facility] [address] WBC 12.5 10*3/uL H 3.6-11.2 RBC 4.21 [...] 66 122/60 16 97 0 187 25 [facility] Social History: Smoking Status (Most current) and Tobacco Use (All prior to encounter date) This section includes the most current, and the historical, smoking and tobacco- related health factors from the [place] facility where the Encounter took place. Current Smoking Status This section includes the most current smoking, or tobacco-related health factor, from the [place] facility where the Encounter took place. Date/Time Current Smoking Status Comment Dena sarkar Nov 23, 2023 11:30 AM VA-TOBACCO NEVER USED [facility] Tobacco Use History This section includes a history of the smoking, or tobacco-related health factors, that were collected on or before the date of the Encounter. The data comes from the [place] facility where the Encounter took place. Date/Time Smoking Status/Tobacco Use Comment F acility Nov 23, 2023 11:30 AM VA-TOBACCO NEVER USED [facility] Nov 23, 2023 11:30 AM VA-TOBACCO QUIT 15 YRS OR MORE [facility] Nov 14, 2023 01:18 AM ORYX ADMIT TOBACCO SCREEN NO [facility] Aug 04, 2022 11:30 AM VA-TOBACCO NEVER USED [facility] Mar 11, 2021 10:30 AM VA-TOBACCO FORMER USER [facility] Mar 11, 2021 10:30 AM VA-TOBACCO QUIT 15 YRS OR MORE [facility] Apr 19, 2018 09:07 AM VA-TOBACCO FORMER USER [facility] Apr 19, 2018 09:07 AM VA-TOBACCO QUIT 15 YRS OR MORE [facility] Jul 24, 2017 08:16 AM QUIT TOBACCO >7 YEARS AGO [facility] Apr 16, 2017 12:43 PM QUIT TOBACCO >7 YEARS AGO [facility] Feb 01, 2017 11:47 AM LIFETIME NON-USER OF TOBACCO [facility] Nov 15, 2016 09:00 AM QUIT TOBACCO >7 YEARS AGO [facility] September 11, 2016 06:27 PM QUIT TOBACCO >7 YEARS AGO [facility] Dec 09, 2015 10:17 AM QUIT TOBACCO >7 YEARS AGO [facility] Jan 05, 2015 08:22 AM CURRENT TOBACCO USER [facility] Jan 05, 2015 08:22 AM TOBACCO MEDS OFFER ED BUT DECLINED [facility] Mar 18, 2014 10:40 AM CURRENT TOBACCO USER [facility] Mar 18, 2014 10:40 AM TOBACCO MEDS OFFER ED BUT DECLINED [facility] Nov 04, 2013 09:40 AM CURRENT TOBACCO USER [facility] Nov 26, 2012 08:10 AM QUIT TOBACCO >7 YEARS AGO [facility] May 03, 2009 08:45 AM QUIT TOBACCO >7 YEARS AGO [facility] Jul 06, 2008 08:46 AM CURRENT TOBACCO USER [facility] Jul 25, 2007 12:30 PM QUIT TOBACCO >12 M O & <7 YRS AGO [facility] Jun 07, 2006 09:21 AM CURRENT TOBACCO USER [facility] Jun 07, 2006 09:21 AM TOBACCO [facility] Aug 25, 2005 11:01 AM CURRENT TOBACCO USER [facility] Aug 25, 2005 11:01 AM TOBACCO CONTEMPLATION STAGE [facility] Oct 25, 2004 10:18 AM CURRENT NON-TOBACC O USER-HX OF USE [facility] Oct 25, 2004 10:18 AM TOBACCO TERMINATION STAGE [facility] Aug 24, 2003 10:43 AM CURRENT NON-TOBACC O USER-HX OF USE [facility] Aug 24, 2003 10:43 AM TOBACCO TERMINATION STAGE [facility] Aug 05, 2002 09:55 AM CURRENT NON-TOBACC O USER-HX OF USE QUIT [facility] Apr 15, 2001 08:28 AM CURRENT NON-TOBACC O USER-HX OF USE quit in 1979 [facility] Advance Directives: All historical and current Section Date Range: From patient's date of to the date document was created. This section includes ALL of a patient's completed or amended [place] Advance and Rescinded Directives. The entries below indicate that a directive exists for the patient, but an actual copy is not included with this document. The data comes from all [place] facilities. Date Advance Directives Provider Source Oct 19, 2023 ADVANCE DIRECTIVE WANG MURILLO [facility] Dec 12, 2022 RESCINDED ADVANCE DIRECTIVE JITENDRA MEADOWS [facility] September 12, 2016 ADVANCE DIRECTIVE DISCUSSION YVETTE MEADOWS [facility] Radiology Reports: +/- 30 days of the [...] the Encounter. The data comes from all [place] treatment facilities. Date/Time Radiology Report Provider Source Nov 23, 2023 09:03 AM NM MYOCARDIAL P SPECT STRESS/REST-P: JESUS ABRAHAM [id number] -[id number] M Exm Date: NOV 23, 2023@09:03 Req Phys: MEAGHAN QUINTEROS Loc: [facility]-PC TM-C SAME DAY CLINIC (Re Img Loc: [facility]-NUCLEAR MEDICINE Service: Unknown [facility] [address] [place] [address] (Case [id number] COMPLETE) NM MYOCARDIAL PERF SPECT STRESS/R(NM Detailed) CPT:68991 Reason for Study: CHEST PAIN, ASSESS SUSPECTED [...] 23, 2023 Date Verified: NOV 23, 2023 Manager Reporting E-Sig:/ES/AGUSTO LIPSCOMB Report: PATIENT NAME: JESUS ABRAHAM CASE #: [id number], [id number], [id number], [id number], [id number] EXAMINATION: Rest/Lexiscan Stress Gated SPECT Myocardial Imaging [...] code: 1000. Dictated by Rik Brand MD (Degreaser Operator), Rodney Smith MD (Degreaser Operator) IAgusto, have reviewed the images and report and concur with these findings. Primary Interpreting Staff: AGUSTO LIPSCOMB, RADIOLOGIST (Manager Reporting) Primary Interpreting Resident: RIK BRAND MD, CHECK CASHIER /AGUSTO SEN [facility] Nov 13, 2023 04:[address] HEAD W/O CONT: JESUS ABRAHAM [id number] -[id number] M Ex Date: NOV 13, 2023@16:07 Req Phys: CYRUS EVANS Loc: [facility]-EMERGENCY DEPT 2ND SHIFT (R Img Loc: [facility]-CT IMAGING [facility] Service: Unknown [facility] [address] [place] [address] (Case [id number] COMPLETE) CT HEAD W/O CONT (CT Detailed) CPT:90383 Reason for Study: confusion Clinical History: Responsible Attending: cyrus evans Attending Contact Number: [phone] Resident Contact Number: Allergies listed in CPRS chart: Patient has answered NKA Creatinine: CREATININE 1.17 mg/dL 11/13/2023 14:20 /eGFR: STL EGFR (within one year). CREATININE 1.17 mg/dL (11/13/23 14:20) Wt: 189.3 lb [85.87 kg] (10/18/2023 10:32) History of: Renal failure, chronic or acute renal disease: NO Report Status: Verified Date Reported: NOV 13, 2023 Date Verified: NOV 13, 2023 Manager Reporting E-Sig: Report: CT HEAD W/O CONT HISTORY: confusion COMPARISON: CT head 06/11/2019 TECHNIQUE: Contiguous axial CT images from the level of the skull base through the skull apex, performed at the local [place] facility. 269 images were received by the [place] National Teleradiology Program (NTP) for interpretation. RADIATION [...] clinical concern, consider MRI. READING PHYSICIAN: Anjum [id number] 11/13/2023 15:14 PDT [facility] National Teleradiology Program [phone] (For Medical Practitioner Use Only) Attention Patients / Veterans: If you have questions or concerns about these test results, please contact your ordering provider or primary care team. Primary Interpreting Staff: RADIOLOGY,OUTSIDE SERVICE, Staff Physician / RADIOLOGY,OUTSIDE SERVICE [facility] Nov 13, 2023 03:59 PM CHEST X-RAY, 2 VIEWS: JESUS ABRAHAM [id number] -[id number] M Exm Date: NOV 13, 2023@15:59 Req Phys: CYRUS EVANS Pat Loc: [facility]-EMERGENCY DEPT 2ND SHIFT (R Img Loc: -MAIN RADIOLOGY SUITE Service: Unknown [facility] [address] [place] [address] (Case [id number] COMPLETE) CHEST X-RAY, 2 VIEWS (RAD Detailed) CPT:54508 Reason for Study: chest pain Clinical History: Report Status: Verified Date Reported: NOV 13, 2023 Date Verified: NOV 13, 2023 Manager Reporting E-Sig:/ES/AGUSTO LIPSCOMB Report: INDICATION: chest pain COMPARISON: None TECHNIQUE: Chest 2 views Impression: No large pleural effusion or sizable pneumothorax. No new focal consolidation. Unchanged cardiomediastinal silhouette. Primary Interpreting Staff: AGUSTO LIPSCOMB, RADIOLOGIST (Manager Reporting) /AGUSTO [place]OVER [facility] Pathology Reports: +/- 30 days of [...] the Encounter. The data comes from all [place] treatment facilities. Date/Time Pathology Report Provider Source Nov 13, 2023 06:10 PM LR MICROBIOLOGY RE PORT: Accession [UID]: [id number] [[id number]] Received: Nov 13, 2023@18:22 Collection sample: B [...] --=--=--=--=--=--=-- Performing Laboratory: Bacteriology Report Performed By: [facility] [address] [facility] CLIA# [id number] [address] [facility] [address] [place] [address] [facility] Nov 13, 2023 06:05 PM LR MICROBIOLOGY RE PORT: Accession [UID]: [id number] [[id number]] Received: Nov 13, 2023@18:23 Collection sample: B [...] --=--=--=--=--=--=-- Performing Laboratory: Bacteriology Report Performed By: [facility] [address] [facility] CLIA# [id number] [address] [place] [address] [place] [address] [facility]
--- OUTSIDE RECORDS SUMMARY | 2024-05-17 21:50 | XMS_ITS ---
Author Name [facility] [facility] [place] [facility] [facility] [place] Address [address] [place] [address] Care Team Providers Care Ceramic Artist Name Role Phone MEAGHAN QUINTEROS Primary Care [...] PART A Aug 12, 2001 PART A [id number] JESUS ABRAHAM PATIENT MEDICARE (WNR) MEDICARE (M) PART B Aug 12, 2001 PART B [id number] JESUS ABRAHAM PATIENT Selected Encounter This section includes the information on record at [place] for the Encounter. Date/Time Encounter Type Encounter Description Reason Provider Source Nov 23, 2023 10:00 AM OFF/OP CNSLTJ NEW/EST MOD 40 CARDIAC STRESS TEST ICD-10-CM I25.10 Athscl heart disease of [place] coronary artery w/o ang pctrs TERESITA RICHARDS Encounter Template Text not used by [facility] Assessments - Encounter Diagnoses This section includes the primary and secondary diagnoses documented for the Encounter. Date/Time Primary/Secondary Diagnosis Diagnosis Name Provider Source Nov 23, 2023 04:33 PM PRIMARY Athscl heart disease of [place] coronary artery w/o ang pctDAE Hargrove [facility] Plan of Treatment: Future Appointments (+ 6 months) and Future Tests (+/- 45 days) The Plan of Treatment section includes future care activities for the patient from all [place] [facility] This section includes future appointments and future orders which are active, pending or scheduled. Future Appointments This section includes appointments that were scheduled to occur 6 months from the date of the Encounter, up to a maximum of 20 appointments. The data comes from all [facility]. Appointment Date/Time Appointment Type Appointme nt Facility Name Dec 24, 2023 02:45 PM AMBULATORY - SURGERY [facility] Jan 01, 2024 02:00 PM AMBULATORY - REHAB MEDICIN [facility] Feb 29, 2024 01:30 PM AMBULATORY - MEDICINE [facility] Mar 03, 2024 09:15 AM AMBULATORY - MEDICINE [facility] Mar 08, 2024 01:30 PM AMBULATORY - MEDICINE [facility] Mar 10, 2024 12:45 PM AMBULATORY - SURGERY [facility] Apr 16, 2024 11:00 [facility] May 15, 2024 11:00 AM AMBULATORY - SURGERY [facility] Active, Pending, and Scheduled Orders This section includes a listing of several types of active, pending, and scheduled orders, including clinic medications orders, diagnostic test orders, procedure orders and consult orders; where the start date of the order is 45 days before the date of the Encounter or 45 days after the date of theEncounter. The data comes from all [facility]. Test Date/Time Test Type Test Details Facility Name Nov 13, 2023 09:10 PM Laboratory - Chemi stry Order MRSA SURVL NARES DNA NARES WC [facility] Nov 21, 2023 12:00 AM Laboratory - Chemi stry Order HGA1C BLOOD [facility] Nov 21, 2023 12:00 AM Laboratory - Chemi stry Order VITAMIN D, 25-HYDROXY GOLD/RED SST SERUM SP [facility] Lab Results: +/- 30 days [...] Range Comment Nov 14, 2023 05:33 AM [facility] PHOSPHOROUS Specimen Type: PLASMA Comment: No hemolysis noted. Ordering Provider: NAYLA DUNN Report Released Date/Time: Nov 14, 2023 04:23 AM Reporting Lab: [address] [address] Performing Lab: [address] [address] PHOSPHOROUS 2.9 mg/dL 2.3-4.7 Nov 14, 2023 05:33 AM [facility] MAGNESIUM Specimen Type: PLASMA Comment: No hemolysis noted. Ordering Provider: NAYLA DUNN Report Released Date/Time: Nov 14, 2023 04:23 AM Reporting Lab: [address] [address] Performing Lab: [address] [address] MAGNESIUM 2.1 mg/dL 1.6-2.6 Nov 14, 2023 05:33 AM [facility] TSH W/ REFLEX FT4 (STL) Specimen Type: PLASMA No comment entered. Ordering Provider: NAYLA DUNN Report Released Date/Time: Nov 14, 2023 04:23 AM Reporting Lab: [address] [address] Performing Lab: [address] [address] TSH 3.546 u[IU]/mL 0.47-5 Nov 14, 2023 05:33 AM [facility] BASIC METABOLIC PANEL Specimen Type: PLASMA Comment: No hemolysis noted. Ordering Provider: NAYLA DUNN Report Released Date/Time: Nov 14, 2023 04:23 AM Reporting Lab: [address] [address] Performing Lab: [address] [address] CREATININE 0.78 mg/dL 0.7-1.3 UREA NITROGEN 12.0 mg/dL 9.0-25.0 GLUCOSE 83 mg/dL 72-99 SODIUM 136 meq/L 136-145 POTASSIUM 4.4 meq/L 3.5-5 CHLORIDE 103 meq/L 98-107 CARBON DIOXIDE 26 meq/L 22-31 CALCIUM 8.8 mg/dL 8.4-10.4 EGFR (CKD-EPI 2020) 86.3 >60 Nov 14, 2023 05:33 AM [facility] CBC Specimen Type: BLOOD Comment: Manual diff performed on 11/13/23 Ordering Provider: NAYLA DUNN Report Released Date/Time: Nov 14, 2023 04:23 AM Reporting Lab: [address] [address] Performing Lab: [address] [address] WBC 12.8 10*3/uL H 3.6-11.2 RBC 3.87 [...] 10*3/uL 0.00-0.20 Nov 14, 2023 01:30 AM [facility] TROPONIN I Specimen Type: PLASMA No comment entered. Ordering Provider: NAYLA DUNN Report Released Date/Time: Nov 14, 2023 01:10 AM Reporting Lab: [facility] [address] [facility] [address] Performing Lab: [facility] [address] [facility] [address] TROPONIN I 0.044 ng/mL H 0-0.033 Nov 13, 2023 10:00 PM [facility] MRSA SURVL NARES DNA Specimen Type: [...] Nov 13, 2023 09:10 PM Reporting Lab: [facility] [address] [facility] [address] Performing Lab: [facility] [address] [place] [phone] MRSA SURVL NARES DNA Negative Negative Nov 13, 2023 07:10 PM [facility] TROPONIN I Specimen Type: PLASMA No comment entered. Ordering Provider: CYRUS EVANS Report Released Date/Time: Nov 13, 2023 06:56 PM Reporting Lab: [facility] [address] [facility] [address] Performing Lab: [facility] [address] [facility] [address] TROPONIN I 0.045 ng/mL H 0-0.033 Nov 13, 2023 06:20 PM [facility] BLOOD GAS PANEL ABG ([facility]) Specimen Type: VENOUS BLOOD Comment: Test Performed by: [id number] Meter #: [id number] Ordering Provider: CYRUS EVANS Report Released Date/Time: Nov 13, 2023 06:20 PM Reporting Lab: [facility] [address] [facility] [address] Performing Lab: [facility] [address] [place] [address] GEM PH 7.38 7.31-7.41 GEM PCO2 52 [...] TEMP 37.0 Nov 13, 2023 06:15 PM [facility] COVID-19 DIAGNOSTIC (FLU/RSV)([facility]) Specimen Type: NASOPHARYNX Comment: Qualitative real-time [...] Nov 13, 2023 03:21 PM Reporting Lab: [facility] [address] [place] [address] Performing Lab: [facility] [address] [place] [address] INFLUENZA A Negative Negative INFLUENZA B Negative Negative COVID-19 (STL-PB) Not Detected Not Detected RSV (Cepheid) NEGATIVE Negative Nov 13, 2023 06:00 PM [facility] PT/INR NEW (L-MA) Specimen Type: PLASMA No comment entered. Ordering Provider: CYRUS EVANS Report Released Date/Time: Nov 13, 2023 03:21 PM Reporting Lab: [address] [address] Performing Lab: [address] [address] PROTIME 12.7 s H 9.4-12.5 INR VALUE 1.1 {INR} Nov 13, 2023 06:00 PM [facility] APTT Specimen Type: PLASMA No comment entered. Ordering Provider: CYRUS EVANS Report Released Date/Time: Nov 13, 2023 03:21 PM Reporting Lab: [facility] [address] [place] [address] Performing Lab: [address] [address] APTT 33.7 s 26.7-39.9 Nov 13, 2023 04:59 PM [facility] URINALYSIS W/ CX REFLEX (L-PB) Specimen Type: URINE No comment entered. Ordering Provider: CYRUS EVANS Report Released Date/Time: Nov 13, 2023 03:12 PM Reporting Lab: [address] [address] Performing Lab: [address] [address] URINE COLOR Yellow Yellow U.BILIRUBIN Negative mg/dL [...] 1.005-1.02 9 Nov 13, 2023 02:20 PM [facility] TROPONIN I Specimen Type: PLASMA Comment: No hemolysis noted. Ordering Provider: CYRUS EVANS Report Released Date/Time: Nov 13, 2023 02:14 PM Reporting Lab: [address] [address] Performing Lab: [address] [address] TROPONIN I 0.044 ng/mL H 0-0.033 Nov 13, 2023 02:20 PM [facility] CBC Specimen Type: BLOOD No comment entered. Ordering Provider: CYRUS EVANS Report Released Date/Time: Nov 13, 2023 02:14 PM Reporting Lab: [address] [address] Performing Lab: [address] [address] WBC 12.5 10*3/uL H 3.6-11.2 RBC 4.21 [...] H 2.10-8.00 Nov 13, 2023 02:20 PM [facility] COMPREHENSIVE METABOLIC PANEL Specimen Type: PLASMA Comment: No hemolysis noted. Ordering Provider: CYRUS EVANS Report Released Date/Time: Nov 13, 2023 02:14 PM Reporting Lab: [facility] [address] [facility] [address] Performing Lab: [facility] [address] [facility] [address] CREATININE 1.17 mg/dL 0.7-1.3 UREA NITROGEN 12.7 [...] U/L 8-40 EGFR (CKD-EPI 2020) 60.3 >60 Vital Signs: All taken on the encounter date This section contains inpatient and outpatient Vital Signs collected on the date of the Encounter. Date/Time Temperature Pulse Blood Pressure Respiratory Rate SP02 Pain Height Weight Body Mass Index Source Nov 23, 2023 11:38 AM 97.3 66 122/60 16 97 0 187 25 [facility] Social History: Smoking Status (Most [...] 2023 11:30 AM VA-TOBACCO NEVER USED [facility] Tobacco Use History This section includes a history of the smoking, or tobacco-related health factors, that were collected on or before the date of the Encounter. The data comes from the [place] facility where the Encounter took place. Date/Time Smoking Status/Tobacco Use Comment F acbailey Nov 23, 2023 11:30 AM VA-TOBACCO NEVER USED [facility] Nov 23, 2023 11:30 AM VA-TOBACCO QUIT 15 YRS OR MORE [facility] Nov 14, 2023 01:18 AM ORYX ADMIT TOBACCO SCREEN NO [facility] Aug 04, 2022 11:30 AM VA-TOBACCO NEVER USED [facility] Mar 11, 2021 10:30 AM VA-TOBACCO FORMER USER [facility] Mar 11, 2021 10:30 AM VA-TOBACCO QUIT 15 YRS OR MORE [facility] Apr 19, 2018 09:07 AM VA-TOBACCO FORMER USER [facility] Apr 19, 2018 09:07 AM VA-TOBACCO QUIT 15 YRS OR MORE [facility] Jul 24, 2017 08:16 AM QUIT TOBACCO >7 YEARS AGO [facility] Apr 16, 2017 12:43 PM QUIT TOBACCO >7 YEARS AGO [facility] Feb 01, 2017 11:47 AM LIFETIME NON-USER OF TOBACCO [facility] Nov 15, 2016 09:00 AM QUIT TOBACCO >7 YEARS AGO [facility] September 11, 2016 06:27 PM QUIT TOBACCO >7 YEARS AGO [facility] Dec 09, 2015 10:17 AM QUIT TOBACCO >7 YEARS AGO [facility] Jan 05, 2015 08:22 AM CURRENT TOBACCO USER [facility] Jan 05, 2015 08:22 AM TOBACCO MEDS OFFER ED BUT DECLINED [facility] Mar 18, 2014 10:40 AM CURRENT TOBACCO USER [facility] Mar 18, 2014 10:40 AM TOBACCO MEDS OFFER ED BUT DECLINED [facility] Nov 04, 2013 09:40 AM CURRENT TOBACCO USER [facility] Nov 26, 2012 08:10 AM QUIT TOBACCO >7 YEARS AGO [facility] May 03, 2009 08:45 AM QUIT TOBACCO >7 YEARS AGO [facility] Jul 06, 2008 08:46 AM CURRENT TOBACCO USER [facility] Jul 25, 2007 12:30 PM QUIT TOBACCO >12 M O & <7 YRS AGO [facility] Jun 07, 2006 09:21 AM CURRENT TOBACCO USER [facility] Jun 07, 2006 09:21 [facility] Aug 25, 2005 11:01 AM CURRENT TOBACCO USER [facility] Aug 25, 2005 11:01 AM TOBACCO CONTEMPLATION STAGE [facility] Oct 25, 2004 10:18 AM CURRENT NON-TOBACC O USER-HX OF USE [facility] Oct 25, 2004 10:18 AM TOBACCO TERMINATION STAGE [facility] Aug 24, 2003 10:43 AM CURRENT NON-TOBACC O USER-HX OF USE [facility] Aug 24, 2003 10:43 AM TOBACCO TERMINATION STAGE [facility] Aug 05, 2002 09:55 AM CURRENT NON-TOBACC O USER-HX OF USE QUIT [facility] Apr 15, 2001 08:28 AM CURRENT NON-TOBACC O USER-HX OF USE quit in 1979 [facility] Advance Directives: All historical and current [...] Oct 19, 2023 ADVANCE DIRECTIVE WANG MURILLO [facility] Dec 12, 2022 RESCINDED ADVANCE DIRECTIVE JITENDRA MEADOWS [facility] September 12, 2016 ADVANCE DIRECTIVE DISCUSSION YVETTE MEADOWS [facility] Radiology Reports: +/- 30 days of [...] NM MYOCARDIAL P SPECT STRESS/REST-P: JESUS ABRAHAM [id number] -[id number] M Exm Date: NOV 23, 2023@09:03 Req Phys: MEAGHAN QUINTEROS Loc: [facility]-PC TM-C SAME DAY CLINIC (Re Img Loc: [facility]-NUCLEAR MEDICINE Service: [address] [address] (Case [id number] COMPLETE) NM MYOCARDIAL PERF SPECT STRESS/R(NM Detailed) CPT:29933 Reason for Study: CHEST PAIN, ASSESS SUSPECTED [...] 23, 2023 Date Verified: NOV 23, 2023 Security Field Supervisor E-Sig:/ES/AGUSTO LIPSCOMB Report: PATIENT NAME: JESUS ABRAHAM CASE #: [id number], [id number], [id number], [id number] EXAMINATION: Rest/Lexiscan Stress Gated SPECT Myocardial Imaging [...] code: 1000. Dictated by Rik Brand MD (Systems Security Analyst), Rodney Smith MD (Systems Security Analyst) IAgusto, have reviewed the images and report and concur with these findings. Primary Interpreting Staff: AGUSTO LIPSCOMB, RADIOLOGIST (Security Field Supervisor) Primary Interpreting Resident: RIK BRAND MD, FEATHERER /AGUSTO SEN [facility] Nov 13, 2023 04:[address] HEAD W/O CONT: JESUS ABRAHAM [id number] -[id number] M Ex Date: NOV 13, 2023@16:07 Req Phys: CYRUS EVANS Loc: [facility]-EMERGENCY DEPT 2ND SHIFT (R Img Loc: [facility]-CT IMAGING [facility] Service: Unknown [facility], [address] [address] [place] [address] (Case [id number] COMPLETE) CT HEAD W/O CONT (CT Detailed) CPT:38665 Reason for Study: confusion Clinical History: Responsible Attending: cyrus evans Attending Contact Number: [phone] Resident Contact Number: Allergies listed in CPRS chart: Patient has answered NKA Creatinine: CREATININE 1.17 mg/dL 11/13/2023 14:20 /eGFR: STL EGFR (within one year). CREATININE 1.17 mg/dL (11/13/23 14:20) Wt: 189.3 lb [85.87 kg] (10/18/2023 10:32) History of: Renal failure, chronic or acute renal disease: NO Report Status: Verified Date Reported: NOV 13, 2023 Date Verified: NOV 13, 2023 Security Field Supervisor E-Sig: Report: CT HEAD W/O CONT HISTORY: confusion COMPARISON: CT head 06/11/2019 TECHNIQUE: Contiguous axial CT images from the level of the skull base through the skull apex, performed at the local [place] facility. 269 images were received by the [place] National Teleradiology Program (NTP) for interpretation. RADIATION [...] clinical concern, consider MRI. READING PHYSICIAN: Anjum [id number] 11/13/2023 15:14 PDT [facility] National Teleradiology Program [phone] (For Medical Practitioner Use Only) Attention Patients / Veterans: If you have questions or concerns about these test results, please contact your ordering provider or primary care team. Primary Interpreting Staff: RADIOLOGY,OUTSIDE SERVICE, Staff Physician / RADIOLOGY,OUTSIDE SERVICE [facility] Nov 13, 2023 03:59 PM CHEST X-RAY, 2 VIEWS: JESUS ABRAHAM [id number] -[id number] M Exm Date: NOV 13, 2023@15:59 Req Phys: CYRUS EVANS Loc: -EMERGENCY DEPT 2ND SHIFT (R Img Loc: -MAIN RADIOLOGY SUITE Service: [facility], [facility] [address] [place] [address] (Case [id number] COMPLETE) CHEST X-RAY, 2 VIEWS (RAD Detailed) CPT:92060 Reason for Study: chest pain Clinical History: Report Status: Verified Date Reported: NOV 13, 2023 Date Verified: NOV 13, 2023 Security Field Supervisor E-Sig:/ES/AGUSTO LIPSCOMB Report: INDICATION: chest pain COMPARISON: None TECHNIQUE: Chest 2 views Impression: No large pleural effusion or sizable pneumothorax. No new focal consolidation. Unchanged cardiomediastinal silhouette. Primary Interpreting Staff: AGUSTO LIPSCOMB, RADIOLOGIST (Security Field Supervisor) /AGUSTO HOOVER [facility] Pathology Reports: +/- 30 days of [...] comes from all [place] treatment facilities. Date/Time Pathology Report Provider Source Nov 13, 2023 06:10 PM LR MICROBIOLOGY RE PORT: Accession [UID]: [id number] [[id number]] Received: Nov 13, 2023@18:22 Collection sample: B [...] --=--=--=--=--=--=-- Performing Laboratory: Bacteriology Report Performed By: [facility] HANNY [address] [place] [address]# [id number] [address] [place] [phone] [place] [address] Nov 13, 2023 06:05 PM LR MICROBIOLOGY RE PORT: Accession [UID]: [id number] [[id number]] Received: Nov 13, 2023@18:23 Collection sample: B [...] --=--=--=--=--=--=-- Performing Laboratory: Bacteriology Report Performed By: [facility] [address] [facility] CLIA# [id number] [address] [facility] [address] [place] [address] [facility] Encounter Notes: All associated encounter notes This section contains the clinical notes associated to the Encounter. Date/Time Encounter Note(s) Provider Source Nov 23, 2023 02:40 PM CARDIOLOGY DIAGNOS TIC STUDY REPORT: LOCAL TITLE: CP EXERCISE STRESS TEST STL STANDARD TITLE: CARDIOLOGY DIAGNOSTIC STUDY REPORT DATE OF NOTE: NOV 23, 2023@14:40:16 ENTRY DATE: NOV 23, 2023@14:40:16 AUTHOR: CLINICAL,DEVICE PRO EXP COSIGNER: URGENCY: STATUS: COMPLETED DOCUMENT IN [facility] SEE FULL REPORT IN [facility] SIGNATURE NOT REQUIRED SEE SIGNATURE IN [facility] (zzMuse Exercise) AUTO-INSTRUMENT DIAGNOSIS Procedure: [id number] Stress Test Release Status: Released Off-Line Verified Date Verified: Nov 23, 2023@14:40:12 26978 Protocol Name: Garthaparnamirna 65880 Time In Exercise Phase:00:00:32 32165 Max. Systolic BP: 136 mmHg 27233 Max Diastolic BP: 61 mmHg 80119 Max Heart Rate: 79 BPM 67328 Max Predicted Heart Evy990 BPM 40239 Reason For Termination:LEXISCAN COMPLETE 39256 Reason for Test: Chest Discomfort 71278 Target HR Formula: (220 - Age)*100% 92130 Overall Impression: SEE STRESS TEST PROCEDURE NOTE for DETAILS Administrative Closure: 11/23/2023 by: CLINICAL,DEVICE PROXY SERVICE CLINICAL,DEVICE PROXY SERVICE [facility] Nov 23, 2023 11:15 AM CARDIOLOGY PROCEDU RE NOTE: LOCAL TITLE: CARDIOLOGY PROCEDURE REPORT STL STANDARD TITLE: CARDIOLOGY PROCEDURE NOTE DATE OF NOTE: NOV 23, 2023@11:15 ENTRY DATE: NOV 23, 2023@11:15:16 AUTHOR: FARHAT DIETZ EXP COSIGNER: URGENCY: STATUS: COMPLETED STRESS TEST PROCEDURE NOTE Patient brought into the stress lab and prepped for the stress test at 1047 Baseline ECG obtained and given to Dr Gomez for review Pt underwent arm ergometer exercise per A16a1 protocol. Unable to achieve 85% MPHR due to fatigue Lexiscan injected by Dr. Gomez Aminophylline given : N Complications: NONE Stress ECG transferred to MUSE system: Y Stress ECG given to Dr. Gomez for review at the end of the test Patient discharged from stress lab in stable condition See MD note for further details. /manuel/ FARHAT DIETZ [facility] Stress Sports Management Intern Signed: 11/23/2023 11:16 FARHAT DIETZ [facility] Nov 23, 2023 11:01 AM CARDIOLOGY DIAGNOS TIC STUDY NOTE: LOCAL TITLE: STRESS TEST PROCEDURE STANDARD TITLE: CARDIOLOGY DIAGNOSTIC STUDY NOTE DATE OF NOTE: NOV 23, 2023@11:01 ENTRY DATE: NOV 23, 2023@11:01:31 AUTHOR: DAE GOMEZ EXP COSIGNER: TERESITA RICHARDS URGENCY: STATUS: COMPLETED STRESS TEST PROCEDURE NOTE Vitals Pulse: 70 (11/14/2023 08:10) BP: 119/62 (11/14/2023 08:10) RESP: 18 (11/14/2023 08:10) Height: 73 in [185.4 cm] (05/18/2023 10:28) Weight: 188.4 lb [85.46 kg] (11/13/2023 21:10) Reason for consult: 88 yo male with cad s/p 1 johny with stable angina over last 3-6 months Referring provider: ABDUOL BURGOS His chart is reviewed. History is taken from the patient. 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 Patient is unable to provide details of his chest pain. He states he does not think he has chest pain. He was recently admitted for observation in November 2023 for chest pain and lightheadedness. His troponin was elevated to 0.045. He has left sided knee pain and ambulates with a cane. Today, at rest, he denies chest pain, dyspnea, lightheadedness/dizziness, orthopnea, PND, or lower extremity edema. Cardiac Hx: Yes PAST MEDICAL HISTORY 1) Coronary artery disease (SNOMED CT 38454526) 2) Hyperlipidaemia (SNOMED CT 14394548) 3) Allergic rhinitis * (ICD-9-CM 477.9) 4) Carcinoma, Basal Cell 5) Osteoarthritis of knee (SNOMED CT 866992254) 6) Age related macular degeneration (SNOMED CT 098592345) 7) Colonic Polyps 8) Diabetes Mellitus without mention of Complication, type II or unspecified type, 9) Benign essential hypertension (SNOMED CT 4093866) 10) Pain in joint involving shoulder region [...] 780.79) 19) History/Skin/CA 20) Dermatitis (SNOMED CT 874021135) 21) Dry skin (SNOMED CT 00879633) 22) Chest pain 23) Exudative age-related macular degeneration 24) Hyperlipidemia 25) Diabetes mellitus 26) Insomnia 27) Osteoarthritis of knee CURRENT MEDICATIONS Active Outpatient Medications (including Supplies): Active Outpatient Medications Status 1) CHOLECALCIF 50MCG (D3-2,000UNIT) TAB TAKE ONE TABLET ACTIVE BY MOUTH ONCE A DAY FOR VITAMIN D DEFICIENCY 2) DICLOFENAC NA 1% TOP GEL APPLY 2 GM TO AFFECTED ACTIVE AREA(S) FOUR TIMES A DAY FOR PAIN NOT MORE THAN 16 GRAMS DAILY TO ANY LOWER EXTREMITY JOINT. NOT MORE THAN 8 GRAMS DAILY TO ANY UPPER EXTREMITY JOINT. MAX 32GM/DAY OVER ALL JOINTS. (MEASURE DOSE WITH RULER ATTACHED INSIDE BOX) APPLY PRESCRIBED TO RIGHT SHOULDER 3) MECLIZINE HCL 25MG CHEW TAB CHEW AND SWALLOW ONE-HALF ACTIVE TABLET BY MOUTH THREE TIMES A DAY NEEDED FOR VERTIGO CHEWABLE TABLETS MAY BE CHEWED OR SWALLOWED WHOLE. MAY CAUSE DROWSINESS. 4) ROSUVASTATIN CA 40MG TAB TAKE ONE-HALF TABLET BY ACTIVE (S) MOUTH EVERY EVENING TO LOWER CHOLESTEROL 5) SODIUM CHLORIDE 0.65% SOLN NASAL SPRAY USE 2 SPRAYS ACTIVE INTO NOSTRIL(S) EVERY 4 HOURS NEEDED FOR NASAL CONGESTION Active Non-VA Medications Status 1) Non-VA ASPIRIN 81MG EC TAB 81MG BY MOUTH ONCE A DAY ACTIVE 2) Non-VA MULTIVITAMIN/OPHTH ANTIOX/LUTEIN CAP/TAB 1 ACTIVE CAP/TAB BY MOUTH ONCE A DAY 7 Total Medications All meds were reviewed with patient. Allergy: Patient has answered NKA OTHER HISTORY FAMILY HISTORY: No premature coronary disease or sudden SOCIAL HISTORY: TOBACCO USE - Long time ago, does not remember when quit ALCOHOL USE - No COCAINE - No Other recreation drugs - No REVIEW OF SYSTEMS Review of systems: All 14 systems reviewed are negative except as noted in HPI. OBJECTIVE/DATA PHYSICAL EXAM Vitals as above General: Elderly, no acute distress HEENT: No oral mucosa cyanosis, anicteric, mucous membranes moist Heart: RRR, normal S1 and S2, no m/r/g Lungs: Normal work of breathing, CTAB Pulses: Equal DP and or PT pulses bilat Abdomen: soft, no tender Extremities: Left sided knee pain, ambulating with cane Skin: No rash Neurological/Psychiatric: Normal affect and mood. Grossly moving all 4 extremities. Difficulty with memory. DIAGNOSTIC DATA CBC WBC:12.8 10*3/uL H (11/14/23 06:00) Hgb:HGB 11.9 L g/dL 11/14/2023 06:00 HCT:35.7 % L (11/14/23 06:00) PLT:PLT 407 H 10*3/uL 11/14/2023 06:00 Chem 7 GLUCOSE 83 mg/dL 11/14/2023 06:00 BUN: 12.0 mg/dL (11/14/23 06:00) CREATININE 0.78 mg/dL 11/14/2023 06:00 SODIUM 136 mEq/L 11/14/2023 06:00 POTASSIUM 4.4 mEq/L 11/14/2023 06:00 CHLORIDE 103 mEq/L (11/14/23 06:00) CARBON DIOXIDE 26 mEq/L 11/14/2023 06:00 ASSESSMENT AND PLAN Pt with RF and no current angina equivalent. Will proceed with stress test. CONSENT FOR STRESS TESTING The rationale, expected symptoms of stress test and complications attributable to stress test were elaborated and discussed with the patient. His questions were addressed. He acknowledged understanding of the issues discussed. Informed consent was obtained. EXERCISE: Arm-Crank Rest SAO2: 96% Peak SAO2: 95% RESULTS OF EXERCISE TEST SUMMARY ECG Sinus rhythm with RBBB and LAFB. ST Segment Changes: NO Dysrhythmias: None Complications: None Reason for Stopping: Shoulder pain, fatigue ARM CRANK Peak workload (Recinos): 48 Peak calculated VO2 (mL/kg/min): 9.9 Peak METs: 2.8 Treadmill equivalent values: Peak METs: 4.7 Peak VO2 (mL/kg/min): 16.5 % of age predicted VO2: 103% Peak HR: 100 % of age predicted Peak HR: 75% HR in recovery: 1 Min - 77 2 Min - 64 ----- 1. Exercise capacity: Above average. 3% above age/gender adjusted healthy sedentary population 2. DTS = 3.5 consistent with medium risk of future CV events, 3. BP response: Normal Baseline: 139/66 Peak: 195/74 ----- CONCLUSIONS -Submaximal exercise stress test based upon patient heart rate 75% of age predicted maximum. Exercise limited by fatigue and shoulder pain. -No ischemic ECG changes at achieved workload. -No symptoms of angina or anginal equivalent. -Elevated BP at baseline with normal blood pressure response to exercise. -Above average functional capacity. 3% above age/gender adjusted healthy sedentary population -Normal heart rate deceleration in recovery associated with favorable prognosis -Conversion to pharmacologic testing required due to inadequate HR target achieved. See below for results. -Stress ECG portion results discussed with the patient at the end of the test. --------- Pharmacologic Stress Test PHARMOCALOGIC AGENT: Regadenoson RESULTS OF PHARMACOLOGIC STRESS ECG CHANGES DURING/AFTER PHARMACOLOGIC STRESS TEST: No DYSRHYTHMIAS: None BP RESPONSES Baseline BP: 125/58 BP during infusion: 118/47 SYMPTOMS/COMPLICATIONS: Mild shortness of breath resolved with caffeinated beverage. REASON FOR STOPPING: Protocol Completed Reversal agent given: Y, caffeinated beverage ======= SUMMARY ======= Non-ischemic EKG stress portion. Imaging stress report to follow. The results of the stress test were discussed with the patient. The patient was informed that a NEGATIVE stress test does not exclude presence of atherosclerosis, particularly non-obstructive coronary stenoses (minor coronary blockages). The patient was advised that some of these minor blockages may rupture, occasionally resulting in heart attack. He acknowledged understanding of the issues discussed. The patient left the Stress Test Lab in stable condition with NO symptoms. /manuel/ Dae Gomez MD/PhD Systems Security Analyst Signed: 11/23/2023 16:33 /manuel/ Teresita Richards MD, FACC, FACP STAFF PHYSICIAN - Cardiology Cosigned: 11/23/2023 23:30 DAE GOMEZ [facility]
--- OUTSIDE RECORDS SUMMARY | 2024-05-17 21:50 | XMS_ITS | Encounter Summary ---
Author Name [facility] [place] [facility] [place] [facility] [place] Address [address] [place] [address] Care Team Providers Care Controller Repairer And Tester Name Role Phone MEAGHAN QUINTEROS Primary Care [...] PART A Aug 12, 2001 PART A [id number] JESUS ABRAHAM PATIENT MEDICARE (WNR) MEDICARE (M) PART B Aug 12, 2001 PART B [id number] JESUS ABRAHAM PATIENT Selected Encounter This section includes the information on record at [place] for the Encounter. Date/Time Encounter Type Encounter Description Reason Provider Source Oct 15, 2023 02:00 PM INTRM OPH EXAM EST PATIENT OPHTHALMOLOGY ICD-10-CM H35.321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, right eye, with inact chrdl neovas KILEY TENORIO IHOlesya Encounter Template Text not used by [facility] Assessments - Encounter Diagnoses This section includes the primary and secondary diagnoses documented for the Encounter. Date/Time Primary/Secondary Diagnosis Diagnosis Name Provider Source Feb 18, 2024 07:50 AM PRIMARY Exdtve age-rel mclr degn, right eye, with inact chrdl neoabbie KILEY TENORIO [facility] Feb 18, 2024 07:50 AM SECONDARY Exdtve age-rel mclr degn, left eye, with actv chrdl neoabbie KILEY TENORIO [facility] Plan of Treatment: Future Appointments (+ 6 months) and Future Tests (+/- 45 days) The Plan of Treatment section includes future care activities for the [facility] [place] [facility] This section includes future appointments and future orders which are active, pending or scheduled. Future Appointments This section includes appointments that were scheduled to occur 6 months from the date of the Encounter, up to a maximum of 20 appointments. The data comes from all [facility] facilities. Appointment Date/Time Appointment Type Appointme nt Facility Name Oct 18, 2023 10:20 AM AMBULATORY - MEDICINE [facility] Nov 13, 2023 02:03 PM AMBULATORY - MEDICINE [facility] Nov 23, 2023 09:00 AM AMBULATORY - MEDICINE [facility] Nov 23, 2023 10:00 AM AMBULATORY - MEDICINE [facility] Nov 23, 2023 11:30 AM AMBULATORY - MEDICINE [facility] Dec 24, 2023 02:45 PM AMBULATORY - SURGERY [facility] Jan 01, 2024 02:00 PM AMBULATORY - REHAB MEDICIN E [facility] Feb 29, 2024 01:30 PM AMBULATORY - MEDICINE [facility] Mar 03, 2024 09:15 AM AMBULATORY - MEDICINE [facility] Mar 08, 2024 01:30 PM AMBULATORY - MEDICINE [facility] Mar 10, 2024 12:45 PM AMBULATORY - SURGERY [facility] Active, Pending, and Scheduled Orders This section includes a listing of several types of active, pending, and scheduled orders, including clinic medications orders, diagnostic test orders, procedure orders and consult orders; where the start date of the order is 45 days before the date of the Encounter or 45 days after the date of theEncounter. The data comes from all [place] treatment facilities. Test Date/Time Test Type Test Details Facility Name Nov 13, 2023 09:10 PM Laboratory - Chemi stry Order MRSA SURVL NARES DNA NARES WC [facility] Nov 21, 2023 12:00 AM Laboratory - Chemi stry Order HGA1C BLOOD SP [facility] Nov 21, 2023 12:00 AM Laboratory - Chemi stry Order VITAMIN D, 25-HYDROXY GOLD/RED SST SERUM SP [facility] Lab Results: +/- 30 days of the encounter This section includes the Chemistry and Hematology Lab Results on record with [place] for the patient. Radiology Reports and Pathology Reports are provided separately, in subsequent sections. Lab Results This section contains the Chemistry/Hematology Results that were resulted 30 days before or 30 daysafter the date of the Encounter. Date/Time Source Result Type Result - Unit Interpretation Reference Range Comment Nov 14, 2023 05:33 AM [facility] TSH W/ REFLEX FT4 (STL) Specimen Type: PLASMA No comment entered. Ordering Provider: NAYLA DUNN Report Released Date/Time: Nov 14, 2023 04:23 AM Reporting Lab: [facility] [address] [facility] [address] Performing Lab: [facility] [address] [facility] [address] TSH 3.546 u[IU]/mL 0.47-5 Nov 14, 2023 05:33 AM [facility] PHOSPHOROUS Specimen Type: PLASMA Comment: No hemolysis noted. Ordering Provider: NAYLA DUNN Report Released Date/Time: Nov 14, 2023 04:23 AM Reporting Lab: [facility] [address] [facility] [address] Performing Lab: [facility] [address] [facility] [address] PHOSPHOROUS 2.9 mg/dL 2.3-4.7 Nov 14, 2023 05:33 AM [facility] MAGNESIUM Specimen Type: PLASMA Comment: No hemolysis noted. Ordering Provider: NAYLA DUNN Report Released Date/Time: Nov 14, 2023 04:23 AM Reporting Lab: [facility] [address] [facility] [address] Performing Lab: [facility] [address] [facility] [address] MAGNESIUM 2.1 mg/dL 1.6-2.6 Nov 14, 2023 05:33 AM [facility] CBC Specimen Type: BLOOD Comment: Manual diff performed on 11/13/23 Ordering Provider: NAYLA DUNN Report Released Date/Time: Nov 14, 2023 04:23 AM Reporting Lab: [address] [address] Performing Lab: [address] [address] WBC 12.8 10*3/uL H 3.6-11.2 RBC 3.87 [...] 10*3/uL 0.00-0.20 Nov 14, 2023 05:33 AM [facility] BASIC METABOLIC PANEL Specimen Type: PLASMA Comment: No hemolysis noted. Ordering Provider: NAYLA DUNN Report Released Date/Time: Nov 14, 2023 04:23 AM Reporting Lab: [address] [address] Performing Lab: [address] [address] CREATININE 0.78 mg/dL 0.7-1.3 UREA NITROGEN 12.0 mg/dL 9.0-25.0 GLUCOSE 83 mg/dL 72-99 SODIUM 136 meq/L 136-145 POTASSIUM 4.4 meq/L 3.5-5 CHLORIDE 103 meq/L 98-107 CARBON DIOXIDE 26 meq/L 22-31 CALCIUM 8.8 mg/dL 8.4-10.4 EGFR (CKD-EPI 2020) 86.3 >60 Nov 14, 2023 01:30 AM [facility] TROPONIN I Specimen Type: PLASMA No comment entered. Ordering Provider: NAYLA DUNN Report Released Date/Time: Nov 14, 2023 01:10 AM Reporting Lab: [address] [address] Performing Lab: [address] [address] TROPONIN I 0.044 ng/mL H 0-0.033 Nov 13, 2023 10:00 PM [facility] MRSA SURVL NARES DNA Specimen Type: NARES [...] Nov 13, 2023 09:10 PM Reporting Lab: [address] [address] Performing Lab: [address] [address] MRSA SURVL NARES DNA Negative Negative Nov 13, 2023 07:10 PM [facility] TROPONIN I Specimen Type: PLASMA No comment entered. Ordering Provider: CYRUS EVANS Report Released Date/Time: Nov 13, 2023 06:56 PM Reporting Lab: [address] [address] Performing Lab: [address] [address] TROPONIN I 0.045 ng/mL H 0-0.033 Nov 13, 2023 06:20 PM [facility] BLOOD GAS PANEL ABG ([facility]) Specimen Type: VENOUS BLOOD Comment: Test Performed by: [id number] Meter #: [id number] Ordering Provider: CYRUS EVANS Report Released Date/Time: Nov 13, 2023 06:20 PM Reporting Lab: [address] [address] Performing Lab: [address] [address] GEM PH 7.38 7.31-7.41 GEM PCO2 52 [...] TEMP 37.0 Nov 13, 2023 06:15 PM [facility] COVID-19 DIAGNOSTIC (FLU/RSV)(STL) Specimen Type: NASOPHARYNX Comment: [...] Nov 13, 2023 03:21 PM Reporting Lab: [facility] [address] [place] [address] Performing Lab: [address] [address] INFLUENZA A Negative Negative INFLUENZA B Negative Negative COVID-19 (L-PB) Not Detected Not Detected RSV (Cepheid) NEGATIVE Negative Nov 13, 2023 06:00 PM [facility] PT/INR NEW ([facility]) Specimen Type: PLASMA No comment entered. Ordering Provider: CYRUS EVANS Report Released Date/Time: Nov 13, 2023 03:21 PM Reporting Lab: [address] [address] Performing Lab: [facility] [address] [place] [address] PROTIME 12.7 s H 9.4-12.5 INR VALUE 1.1 {INR} Nov 13, 2023 06:00 PM [facility] APTT Specimen Type: PLASMA No comment entered. Ordering Provider: CYRUS EVANS Report Released Date/Time: Nov 13, 2023 03:21 PM Reporting Lab: [address] [address] Performing Lab: [address] [address] APTT 33.7 s 26.7-39.9 Nov 13, 2023 04:59 PM [facility] URINALYSIS W/ CX REFLEX (L-PB) Specimen Type: URINE No comment entered. Ordering Provider: CYRUS EVANS Report Released Date/Time: Nov 13, 2023 03:12 PM Reporting Lab: [facility] [address] [place] [address] Performing Lab: [facility] [address] [place] [phone] URINE COLOR Yellow Yellow U.BILIRUBIN Negative mg/dL Negative U.PH 6.0 5.0-8.0 URINE WBC/HPF 2 /[HPF] 0-5 URINE RBC/HPF 1 /[HPF] 0-5 APPEARANCE Clear Clear U.NITRITE Negative mg/dL Negative MUCUS RARE /[LPF] Negative -R are HYALINE CASTS 7 /[LPF] 0-5 URN.GLUCOSE Normal mg/dL Negative URN.PROTEIN 30 mg/dL H Negative -2 0 URN.UROBILINOGE N Normal mg/dL Normal URN.BLOOD Negative mg/dL Negat tammy-T race URN.KETONES Trace mg/dL Negati ve-T race URN.LEUK.EST. Negative mg/dL N egative-T race URN.SPECIFIC GRAVITY 1.026 1.005-1.02 9 Nov 13, 2023 02:20 PM [facility] TROPONIN I Specimen Type: PLASMA Comment: No hemolysis noted. Ordering Provider: CYRUS EVANS Report Released Date/Time: Nov 13, 2023 02:14 PM Reporting Lab: [facility] [address] [facility] [address] Performing Lab: [facility] [address] [place] [address] TROPONIN I 0.044 ng/mL H 0-0.033 Nov 13, 2023 02:20 PM [facility] COMPREHENSIVE METABOLIC PANEL Specimen Type: PLASMA Comment: No hemolysis noted. Ordering Provider: CYRUS EVANS Report Released Date/Time: Nov 13, 2023 02:14 PM Reporting Lab: [facility] [address] [facility] [address] Performing Lab: [facility] [address] [place] [phone] CREATININE 1.17 mg/dL 0.7-1.3 UREA NITROGEN 12.7 [...] 60.3 >60 Nov 13, 2023 02:20 PM [facility] CBC Specimen Type: BLOOD No comment entered. Ordering Provider: CYRUS EVANS Report Released Date/Time: Nov 13, 2023 02:14 PM Reporting Lab: [place] [id number] [facility] [address] Performing Lab: [address] [address] WBC 12.5 10*3/uL H 3.6-11.2 RBC 4.21 [...] Date/Time Current Smoking Status Comment Facil ity Aug 04, 2022 11:30 AM VA-TOBACCO NEVER USED [facility] Tobacco Use History This section includes a history of the smoking, or tobacco-related health factors, that were collected on or before the date of the Encounter. The data comes from the [place] facility where the Encounter took place. Date/Time Smoking Status/Tobacco Use Comment F acility Mar 11, 2021 10:30 AM VA-TOBACCO FORMER USER [facility] Mar 11, 2021 10:30 AM VA-TOBACCO QUIT 15 YRS OR MORE [facility] Apr 19, 2018 09:07 AM VA-TOBACCO FORMER USER [facility] Apr 19, 2018 09:07 AM VA-TOBACCO QUIT 15 YRS OR MORE [facility] Jul 24, 2017 08:16 AM QUIT TOBACCO >7 YEARS AGO [facility] Apr 16, 2017 12:43 PM QUIT TOBACCO >7 YEARS AGO [facility] Feb 01, 2017 11:47 AM LIFETIME NON-USER OF TOBACCO [facility] Nov 15, 2016 09:00 AM QUIT TOBACCO >7 YEARS AGO [facility] September 11, 2016 06:27 PM QUIT TOBACCO >7 YEARS AGO [facility] Dec 09, 2015 10:17 AM QUIT TOBACCO >7 YEARS AGO [facility] Jan 05, 2015 08:22 AM CURRENT TOBACCO USER [facility] Jan 05, 2015 08:22 AM TOBACCO MEDS OFFER ED BUT DECLINED [facility] Mar 18, 2014 10:40 AM CURRENT TOBACCO USER [facility] Mar 18, 2014 10:40 AM TOBACCO MEDS OFFER ED BUT DECLINED [facility] Nov 04, 2013 09:40 AM CURRENT TOBACCO USER [facility] Nov 26, 2012 08:10 AM QUIT TOBACCO >7 YEARS AGO [facility] May 03, 2009 08:45 AM QUIT TOBACCO >7 YEARS AGO [facility] Jul 06, 2008 08:46 AM CURRENT TOBACCO USER [facility] Jul 25, 2007 12:30 PM QUIT TOBACCO >12 M O & <7 YRS AGO [facility] Jun 07, 2006 09:21 AM CURRENT TOBACCO USER [facility] Jun 07, 2006 09:21 [facility] Aug 25, 2005 11:01 AM CURRENT TOBACCO USER [facility] Aug 25, 2005 11:01 AM TOBACCO CONTEMPLATION STAGE [facility] Oct 25, 2004 10:18 AM CURRENT NON-TOBACC O USER-HX OF USE [facility] Oct 25, 2004 10:18 AM TOBACCO TERMINATION STAGE [facility] Aug 24, 2003 10:43 AM CURRENT NON-TOBACC O USER-HX OF USE [facility] Aug 24, 2003 10:43 AM TOBACCO TERMINATION STAGE [facility] Aug 05, 2002 09:55 AM CURRENT NON-TOBACC O USER-HX OF USE QUIT [facility] Apr 15, 2001 08:28 AM CURRENT NON-TOBACC O USER-HX OF USE quit in 1979 [facility] Advance Directives: All historical and current Section [...] Oct 19, 2023 ADVANCE DIRECTIVE WANG MURILLO [facility] Dec 12, 2022 RESCINDED ADVANCE DIRECTIVE JITENDRA MEADOWS [facility] September 12, 2016 ADVANCE DIRECTIVE DISCUSSION YVETTE MEADOWS [facility] Radiology Reports: +/- 30 days [...] 2023 04:[address] HEAD W/O CONT: TOBIJESUS SKY Lamont [id number] -[id number] M Exm Date: NOV 13, 2023@16:07 Req Phys: CYRUS EVANS Loc: [facility]-EMERGENCY DEPT 2ND SHIFT (R Img Loc: [facility]-CT IMAGING Service: [address] [address] (Case [id number] COMPLETE) CT HEAD W/O CONT (CT Detailed) CPT:86610 Reason for Study: confusion Clinical History: Responsible Attending: cyrus evans Attending Contact Number: [phone] Resident Contact Number: Allergies listed in CPRS chart: Patient has answered NKA Creatinine: CREATININE 1.17 mg/dL 11/13/2023 14:20 /eGFR: STL EGFR (within one year). CREATININE 1.17 mg/dL (11/13/23 14:20) Wt: 189.3 lb [85.87 kg] (10/18/2023 10:32) History of: Renal failure, chronic or acute renal disease: NO Report Status: Verified Date Reported: NOV 13, 2023 Date Verified: NOV 13, 2023 Scaffolder E-Sig: Report: CT HEAD W/O CONT HISTORY: [...] clinical concern, consider MRI. READING PHYSICIAN: Anjum [id number] 11/13/2023 15:14 PDT [facility] [phone] (For Medical Practitioner Use Only) Attention Patients / Veterans: If you have questions or concerns about these test results, please contact your ordering provider or primary care team. Primary Interpreting Staff: RADIOLOGY,OUTSIDE SERVICE, Staff Physician / RADIOLOGY,OUTSIDE SERVICE [facility] Nov 13, 2023 03:59 PM CHEST X-RAY, 2 VIEWS: JESUS ABRAHAM [id number] -1935 M Ex Date: NOV 13, 2023@15:59 Req Phys: CYRUS EVANS Loc: [facility]-EMERGENCY DEPT 2ND SHIFT (R Img Loc: -MAIN RADIOLOGY SUITE Service: [address] [address] (Case [id number] COMPLETE) CHEST X-RAY, 2 VIEWS (RAD Detailed) CPT:59976 Reason for Study: chest pain Clinical History: Report Status: Verified Date Reported: NOV 13, 2023 Date Verified: NOV 13, 2023 Scaffolder E-Sig:/ES/CATHY LIPSCOMB Report: INDICATION: chest pain COMPARISON: None TECHNIQUE: Chest 2 views Impression: No large pleural effusion or sizable pneumothorax. No new focal consolidation. Unchanged cardiomediastinal silhouette. Primary Interpreting Staff: CATHY LIPSCOMB, RADIOLOGIST (Scaffolder) /CATHY HOOVER. [facility] Pathology Reports: +/- 30 days of [...] the Encounter. The data comes from all [facility] [place] facilities. Date/Time Pathology Report Provider Source Nov 13, 2023 06:10 PM LR MICROBIOLOGY RE PORT: Accession [UID]: [id number] [[id number]] Received: Nov 13, 2023@18:22 Collection sample: B [...] --=--=--=--=--=--=-- Performing Laboratory: Bacteriology Report Performed By: [facility] [address] [facility] CLIA# [id number] [address] [facility] [address] [place] [address] [facility] Nov 13, 2023 06:05 PM LR MICROBIOLOGY RE PORT: Accession [UID]: [id number] [[id number]] Received: Nov 13, 2023@18:23 Collection sample: Ivon Milagro BLD. BOTTLE Collection date: Nov 13, 2023 [...] --=--=--=--=--=--=-- Performing Laboratory: Bacteriology Report Performed By: [facility] [address] [place] [address] CLIA# [id number] 5 [facility] [address] [place] [address] [facility] Encounter Notes: All associated encounter notes This section contains the clinical notes associated to the Encounter. Date/Time Encounter Note(s) Provider Source Oct 15, 2023 02:44 PM OPHTHALMOLOGY CONS ULT: LOCAL TITLE: OPHTHALMOLOGY CONSULT STL STANDARD TITLE: OPHTHALMOLOGY CONSULT DATE OF NOTE: OCT 15, 2023@14:44 ENTRY DATE: OCT 15, 2023@14:44:30 AUTHOR: KILEY TENORIO EXP COSIGNER: URGENCY: STATUS: COMPLETED [facility] CC/HPI: Here for wet AMD f/u. Feels vision is the same. VA OD CF was sc20/200 was 20/200 was sc 20/200-1 (MD fernandez) was 20/200 was 20/80 was 20/80 was 20/200-1 OS phcc20/50 was 20/40-3 was 20/40 was 20/40 was 20/60 was 20/50 was 20/40 was 20/40 was 20/40 was 20/50-1 IOP 24/23 was 19/18 SLEx OD OS L/L wnl wnl C/S w/q w/q K clr clr AC d/q d/q I r/r, no NVI r/r, no NVI L PCIOL PCIOL AV synresis syneresis DFEx (prior) RE D: 0.2, pink, nl, no rim thinning, peripapillary atrophy M: GA, no hemorrhage V: normal caliber, perfused P: flat LE D: pink, nl, no rim thinning, peripapillary atrophy M: nasal JALYN, no heme centrally no heme V: normal caliber, perfused P: flat INTRAVITREAL INJECTION LOG (OD) RIGHT EYE #Wks Date Med. # Response (+/-/=) n/a 02/18/20 TAMMY 1 5 03/22/20 TAMMY [...] EYE #Wks Date Med. # Response (+/-/=) Injections since 201404/18/21 n/a no fluid, no [...] 11 10/15/23 TAMMY stable mild CME IMAGING -------- Fundus photos 04/18/21 OD RPE change vs [...] broad PED, degenerative cysts and mild CME A/P #Wet AMD OU - +AG, +quit [...] on PRN for hemorrhages or large changes ---OS--- - Treatment prior to 2014 - Previously dry up until 28 weeks, but recurred 11/27/18 - Recently with large worsening of fluid at 8 weeks in mid-2019 and late-2019 - Noted on 09/20/20 to have new sub-RPE and sub-retinal hemorrhage, resolved by 02/07/21. - TE 11w ->10w FYI, patient prefers proparacaine soaked qtip rather than subconj lido Do inferotemp so qtip can sit for 5 minutes Procedure: Intravitreal Eylea/aflibercept, LEFT eye (TAMMY OS) - Risks, benefits, and alternatives discussed - Topical proparacaine drops and subconjunctival lidocaine applied - Topical betadine instilled and allowed to dwell for 30 seconds. - Site marked with sterile syringe after which a subsequent drop of betadine placed just before injection - 0.05 mL Eylea injected at pars plana - Additional drop of betadine following injection - Vision at least CF - No complications. 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
--- OUTSIDE RECORDS SUMMARY | 2024-05-17 21:50 | XMS_ITS | Encounter Summary ---
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 Date/Time Encounter Type Encounter Description Reason Pro vider Source Dec 12, 2023 08:33 AM Outpatient Encounter ADMIN PAT ACTIVTIES (MASNONCT) IHE Encounter Template Text not used by [place] Plan of Treatment: Future Appointments (+ 6 [...] 20 appointments. The data comes from all [facility]. Appointment Date/Time Appointment Type Appointme nt Facility Name Dec 24, 2023 02:45 PM AMBULATORY - SURGERY [facility] Jan 01, 2024 02:00 PM AMBULATORY - REHAB MEDICIN E [facility] Feb 29, 2024 01:30 PM AMBULATORY - MEDICINE [facility] Mar 03, 2024 09:15 AM AMBULATORY - MEDICINE [facility] Mar 08, 2024 01:30 PM AMBULATORY - MEDICINE [facility] Mar 10, 2024 12:45 PM AMBULATORY - SURGERY [facility] Apr 16, 2024 11:00 AM AMBULATORY - REHAB MEDICIN E [facility] May 15, 2024 11:00 AM AMBULATORY - SURGERY [facility] May 26, 2024 12:30 PM AMBULATORY - SURGERY [facility] Active, Pending, and Scheduled Orders This section includes a listing of several types of active, pending, and scheduled orders, including clinic medications orders, diagnostic test orders, procedure orders and consult orders; where the start date of the order is 45 days before the date of the Encounter or 45 days after the date of theEncounter. The data comes from all [facility]. Test Date/Time Test Type Test Details Facility Name Nov 13, 2023 09:10 PM Laboratory - Chemi stry Order MRSA SURVL NARES DNA NARES WC [facility] Nov 21, 2023 12:00 AM Laboratory - Chemi stry Order HGA1C BLOOD SP [facility] Nov 21, 2023 12:00 AM Laboratory - Chemi stry Order VITAMIN D, 25-HYDROXY GOLD/RED SST SERUM SP [facility] Lab Results: +/- 30 [...] Range Comment Nov 14, 2023 05:33 AM [facility] TSH W/ REFLEX FT4 (STL) Specimen Type: PLASMA No comment entered. Ordering Provider: NAYLA DUNN Report Released Date/Time: Nov 14, 2023 04:23 AM Reporting Lab: [facility] [address] [facility] [id number] Performing Lab: [facility] [address] [facility] [address] TSH 3.546 u[IU]/mL 0.47-5 Nov 14, 2023 05:33 AM [facility] PHOSPHOROUS Specimen Type: PLASMA Comment: No hemolysis noted. Ordering Provider: NAYLA DUNN Report Released Date/Time: Nov 14, 2023 04:23 AM Reporting Lab: [facility] [address] [facility] [address] Performing Lab: [facility] [address] [facility] [address] PHOSPHOROUS 2.9 mg/dL 2.3-4.7 Nov 14, 2023 05:33 AM [facility] MAGNESIUM Specimen Type: PLASMA Comment: No hemolysis noted. Ordering Provider: NAYLA DUNN Report Released Date/Time: Nov 14, 2023 04:23 AM Reporting Lab: [place] [address] [facility] [address] Performing Lab: [facility] [address] [facility] [address] MAGNESIUM 2.1 mg/dL 1.6-2.6 Nov 14, 2023 05:33 AM [facility] CBC Specimen Type: BLOOD Comment: Manual diff performed on 11/13/23 Ordering Provider: NAYLA DUNN Report Released Date/Time: Nov 14, 2023 04:23 AM Reporting Lab: [facility] [address] [facility] [address] Performing Lab: [facility] [address] [facility] [address] WBC 12.8 10*3/uL H 3.6-11.2 RBC 3.87 [...] 10*3/uL 0.00-0.20 Nov 14, 2023 05:33 AM [facility] BASIC METABOLIC PANEL Specimen Type: PLASMA Comment: No hemolysis noted. Ordering Provider: NAYLA DUNN Report Released Date/Time: Nov 14, 2023 04:23 AM Reporting Lab: [address] [address] Performing Lab: [address] [address] CREATININE 0.78 mg/dL 0.7-1.3 UREA NITROGEN 12.0 mg/dL 9.0-25.0 GLUCOSE 83 mg/dL 72-99 SODIUM 136 meq/L 136-145 POTASSIUM 4.4 meq/L 3.5-5 CHLORIDE 103 meq/L 98-107 CARBON DIOXIDE 26 meq/L 22-31 CALCIUM 8.8 mg/dL 8.4-10.4 EGFR (CKD-EPI 2020) 86.3 >60 Nov 14, 2023 01:30 AM [facility] TROPONIN I Specimen Type: PLASMA No comment entered. Ordering Provider: NAYLA DUNN Report Released Date/Time: Nov 14, 2023 01:10 AM Reporting Lab: [facility] [address] [facility] [address] Performing Lab: [facility] [address] [facility] [address] TROPONIN I 0.044 ng/mL H 0-0.033 Nov 13, 2023 10:00 PM [facility] MRSA SURVL NARES DNA [...] Nov 13, 2023 09:10 PM Reporting Lab: [facility] [address] [place] [phone] Performing Lab: [address] [address] MRSA SURVL NARES DNA Negative Negative Nov 13, 2023 07:10 PM [facility] TROPONIN I Specimen Type: PLASMA No comment entered. Ordering Provider: CYRUS EVANS Report Released Date/Time: Nov 13, 2023 06:56 PM Reporting Lab: [facility] [address] [place] [phone] Performing Lab: [facility] [address] [place] [phone] TROPONIN I 0.045 ng/mL H 0-0.033 Nov 13, 2023 06:20 PM [facility] BLOOD GAS PANEL ABG (STL) Specimen Type: VENOUS BLOOD Comment: Test Performed by: [id number] Meter #: [id number] Ordering Provider: CYRUS EVANS Report Released Date/Time: Nov 13, 2023 06:20 PM Reporting Lab: [facility] [address] [place] [phone] Performing Lab: [facility] [address] [place] [phone] GEM PH 7.38 7.31-7.41 GEM PCO2 52 [...] TEMP 37.0 Nov 13, 2023 06:15 PM [facility] COVID-19 DIAGNOSTIC (FLU/RSV)([facility]) Specimen Type: NASOPHARYNX Comment: Qualitative real-time [...] Nov 13, 2023 03:21 PM Reporting Lab: [facility] [address] [facility] [address] Performing Lab: [address] [address] INFLUENZA A Negative Negative INFLUENZA B Negative Negative COVID-19 (STL-PB) Not Detected Not Detected RSV (Cepheid) NEGATIVE Negative Nov 13, 2023 06:00 PM [facility] APTT Specimen Type: PLASMA No comment entered. Ordering Provider: CYRUS EVANS Report Released Date/Time: Nov 13, 2023 03:21 PM Reporting Lab: [place] [address] [place] [address] Performing Lab: [place] [address] APTT 33.7 s 26.7-39.9 Nov 13, 2023 06:00 PM [facility] PT/INR NEW (L-MA) Specimen Type: PLASMA No comment entered. Ordering Provider: CYRUS EVANS Report Released Date/Time: Nov 13, 2023 03:21 PM Reporting Lab: [place] [phone] Performing Lab: [place] [phone] PROTIME 12.7 s H 9.4-12.5 INR VALUE 1.1 {INR} Nov 13, 2023 04:59 PM [facility] URINALYSIS W/ CX REFLEX ([facility]) Specimen Type: URINE No comment entered. Ordering Provider: CYRUS EVANS Report Released Date/Time: Nov 13, 2023 03:12 PM Reporting Lab: [address] Performing Lab: [address] [address] URINE COLOR Yellow Yellow U.BILIRUBIN Negative mg/dL [...] 1.005-1.02 9 Nov 13, 2023 02:20 PM [facility] TROPONIN I Specimen Type: PLASMA Comment: No hemolysis noted. Ordering Provider: CYRUS EVANS Report Released Date/Time: Nov 13, 2023 02:14 PM Reporting Lab: [address] [address] Performing Lab: [address] [address] TROPONIN I 0.044 ng/mL H 0-0.033 Nov 13, 2023 02:20 PM [facility] COMPREHENSIVE METABOLIC PANEL Specimen Type: PLASMA Comment: No hemolysis noted. Ordering Provider: CYRUS EVANS Report Released Date/Time: Nov 13, 2023 02:14 PM Reporting Lab: [address] [address] Performing Lab: [address] [address] CREATININE 1.17 mg/dL 0.7-1.3 UREA NITROGEN 12.7 [...] 60.3 >60 Nov 13, 2023 02:20 PM [facility] CBC Specimen Type: BLOOD No comment entered. Ordering Provider: CYRUS EVANS Report Released Date/Time: Nov 13, 2023 02:14 PM Reporting Lab: [facility] [address] [facility] [address] Performing Lab: [facility] [address] [facility] [address] WBC 12.5 10*3/uL H 3.6-11.2 RBC 4.21 [...] and tobacco- related health factors from the [place] facility where the Encounter took place. Current Smoking Status This section includes the most current smoking, or tobacco-related health factor, from the [place] facility where the Encounter took place. Date/Time Current Smoking Status Comment Dena sarkar Nov 23, 2023 11:30 AM CO-TOBACCO NEVER USED [facility] Tobacco Use History This section includes a history of the smoking, or tobacco-related health factors, that were collected on or before the date of the Encounter. The data comes from the [place] facility where the Encounter took place. Date/Time Smoking Status/Tobacco Use Comment F acility Nov 23, 2023 11:30 AM VA-TOBACCO NEVER USED [facility] Nov 23, 2023 11:30 AM VA-TOBACCO QUIT 15 YRS OR MORE [facility] Nov 14, 2023 01:18 AM ORYX ADMIT TOBACCO SCREEN NO [facility] Aug 04, 2022 11:30 AM VA-TOBACCO NEVER USED [facility] Mar 11, 2021 10:30 AM VA-TOBACCO FORMER USER [facility] Mar 11, 2021 10:30 AM VA-TOBACCO QUIT 15 YRS OR MORE [facility] Apr 19, 2018 09:07 AM VA-TOBACCO FORMER USER [facility] Apr 19, 2018 09:07 AM VA-TOBACCO QUIT 15 YRS OR MORE [facility] Jul 24, 2017 08:16 AM QUIT TOBACCO >7 YEARS AGO [facility] Apr 16, 2017 12:43 PM QUIT TOBACCO >7 YEARS AGO [facility] Feb 01, 2017 11:47 AM LIFETIME NON-USER OF TOBACCO [facility] Nov 15, 2016 09:00 AM QUIT TOBACCO >7 YEARS AGO [facility] September 11, 2016 06:27 PM QUIT TOBACCO >7 YEARS AGO [facility] Dec 09, 2015 10:17 AM QUIT TOBACCO >7 YEARS AGO [facility] Jan 05, 2015 08:22 AM CURRENT TOBACCO USER [facility] Jan 05, 2015 08:22 AM TOBACCO MEDS OFFER ED BUT DECLINED [facility] Mar 18, 2014 10:40 AM CURRENT TOBACCO USER [facility] Mar 18, 2014 10:40 AM TOBACCO MEDS OFFER ED BUT DECLINED [facility] Nov 04, 2013 09:40 AM CURRENT TOBACCO USER [facility] Nov 26, 2012 08:10 AM QUIT TOBACCO >7 YEARS AGO [facility] May 03, 2009 08:45 AM QUIT TOBACCO >7 YEARS AGO [facility] Jul 06, 2008 08:46 AM CURRENT TOBACCO USER [facility] Jul 25, 2007 12:30 PM QUIT TOBACCO >12 M O & <7 YRS AGO [facility] Jun 07, 2006 09:21 AM CURRENT TOBACCO USER [facility] Jun 07, 2006 09:[address] [facility] SMOKING CLINIC [facility] Aug 25, 2005 11:01 AM CURRENT TOBACCO USER [facility] Aug 25, 2005 11:01 AM TOBACCO CONTEMPLATION STAGE [facility] Oct 25, 2004 10:18 AM CURRENT NON-TOBACC O USER-HX OF USE [facility] Oct 25, 2004 10:18 AM TOBACCO TERMINATION STAGE [facility] Aug 24, 2003 10:43 AM CURRENT NON-TOBACC O USER-HX OF USE [facility] Aug 24, 2003 10:43 AM TOBACCO TERMINATION STAGE [facility] Aug 05, 2002 09:55 AM CURRENT NON-TOBACC O USER-HX OF USE QUIT [facility] Apr 15, 2001 08:28 AM CURRENT NON-TOBACC O USER-HX OF USE quit in 1979 [facility] Advance Directives: All historical and current Section Date Range: From patient's date of to the date document was created. This section includes ALL of a patient's completed or amended [place] Advance and Rescinded Directives. The entries below indicate that a directive exists for the patient, but an actual copy is not included with this document. The data comes from all [place] facilities. Date Advance Directives Provider Source Oct 19, 2023 ADVANCE DIRECTIVE WANG MURILLO [facility] Dec 12, 2022 RESCINDED ADVANCE DIRECTIVE JITENDRA MEADOWS [facility] September 12, 2016 ADVANCE DIRECTIVE DISCUSSION YVETTE MEADOWS [facility] Radiology Reports: +/- 30 [...] the Encounter. The data comes from all [place] treatment facilities. Date/Time Radiology Report Provider Source Nov 23, 2023 09:03 AM NM MYOCARDIAL P SPECT STRESS/REST-P: JESUS ABRAHAM [id number] -[id number] M Exm Date: NOV 23, 2023@09:03 Req Phys: MEAGHAN QUINTEROS Loc: [facility]-PC TM-C SAME DAY CLINIC (Re Img Loc: [facility]-NUCLEAR MEDICINE Service: Unknown [facility] [address] [place] [address] (Case [id number] COMPLETE) NM MYOCARDIAL PERF SPECT STRESS/R(NM Detailed) CPT:06798 Reason for Study: CHEST PAIN, ASSESS SUSPECTED [...] 23, 2023 Date Verified: NOV 23, 2023 Precipitation Equipment Tender E-Sig:/ES/AGUSTO LIPSCOMB Report: PATIENT NAME: JESUS ABRAHAM CASE #: [id number], [id number], [id number], [id number], [id number] EXAMINATION: Rest/Lexiscan Stress Gated SPECT Myocardial Imaging [...] code: 1000. Dictated by Rik Brand MD (Road Roller Operator Hot Mix), Rodney Smith MD (Road Roller Operator Hot Mix) IAgusto, have reviewed the images and report and concur with these findings. Primary Interpreting Staff: AGUSTO LIPSCOMB, RADIOLOGIST (Precipitation Equipment Tender) Primary Interpreting Resident: RIK BRAND MD, BUS AND TROLLEY INSPECTING DISPATCHER /AGUSTO SEN [facility] Nov 13, 2023 04:[address] HEAD W/O CONT: JESUS ABRAHAM [id number] -[id number] M Ex Date: NOV 13, 2023@16:07 Req Phys: CYRUS EVANS Loc: [facility]-EMERGENCY DEPT 2ND SHIFT (R Img Loc: [facility]-CT IMAGING [facility] Service: Unknown [facility] [address] [place] [address] (Case [id number] COMPLETE) CT HEAD W/O CONT (CT Detailed) CPT:59181 Reason for Study: confusion Clinical History: Responsible Attending: cyrus evans Attending Contact Number: [phone] Resident Contact Number: Allergies listed in CPRS chart: Patient has answered NKA Creatinine: CREATININE 1.17 mg/dL 11/13/2023 14:20 /eGFR: STL EGFR (within one year). CREATININE 1.17 mg/dL (11/13/23 14:20) Wt: 189.3 lb [85.87 kg] (10/18/2023 10:32) History of: Renal failure, chronic or acute renal disease: NO Report Status: Verified Date Reported: NOV 13, 2023 Date Verified: NOV 13, 2023 Precipitation Equipment Tender E-Sig: Report: CT HEAD W/O CONT HISTORY: confusion COMPARISON: CT head 06/11/2019 TECHNIQUE: Contiguous axial CT images from the level of the skull base through the skull apex, performed at the local [place] facility. 269 images were received by the [place] National Teleradiology Program (NTP) for interpretation. RADIATION [...] clinical concern, consider MRI. READING PHYSICIAN: Anjum [id number] 11/13/2023 15:14 PDT [facility] National Teleradiology Program [phone] (For Medical Practitioner Use Only) Attention Patients / Veterans: If you have questions or concerns about these test results, please contact your ordering provider or primary care team. Primary Interpreting Staff: RADIOLOGY,OUTSIDE SERVICE, Staff Physician / RADIOLOGY,OUTSIDE SERVICE [facility] Nov 13, 2023 03:59 PM CHEST X-RAY, 2 VIEWS: LEIGHJESUS Miguel [id number] -[id number] M Exm Date: NOV 13, 2023@15:59 Req Phys: CYRUS EVANS Loc: [facility]-EMERGENCY DEPT 2ND SHIFT (R Img Loc: [facility]-MAIN RADIOLOGY SUITE Service: Unknown [facility] [address] [place] [address] (Case [id number] COMPLETE) CHEST X-RAY, 2 VIEWS (RAD Detailed) CPT:09792 Reason for Study: chest pain Clinical History: Report Status: Verified Date Reported: NOV 13, 2023 Date Verified: NOV 13, 2023 Precipitation Equipment Tender E-Sig:/ES/AGUSTO LIPSCOMB Report: INDICATION: chest pain COMPARISON: None TECHNIQUE: Chest 2 views Impression: No large pleural effusion or sizable pneumothorax. No new focal consolidation. Unchanged cardiomediastinal silhouette. Primary Interpreting Staff: AGUSTO LIPSCOMB, RADIOLOGIST (Precipitation Equipment Tender) /AGUSTO [place] [facility] Pathology Reports: +/- 30 days of [...] the Encounter. The data comes from all [place] treatment facilities. Date/Time Pathology Report Provider Source Nov 13, 2023 06:10 PM LR MICROBIOLOGY RE PORT: Accession [UID]: [id number] [[id number]] Received: Nov 13, 2023@18:22 Collection sample: B [...] --=--=--=--=--=--=-- Performing Laboratory: Bacteriology Report Performed By: [facility] [address] [facility] CLIA# [id number] [address] [facility] [address] [place] [phone] [address] [facility] Nov 13, 2023 06:05 PM LR MICROBIOLOGY RE PORT: Accession [UID]: [id number] [[id number]] Received: Nov 13, 2023@18:23 Collection sample: B [...] --=--=--=--=--=--=-- Performing Laboratory: Bacteriology Report Performed By: [facility] [address] [facility] CLIA# [id number] [address] [facility] [address] [place] [address] [facility] Encounter Notes: All associated encounter notes This section contains the clinical notes associated to the Encounter. Date/Time Encounter Note(s) Provider Source Dec 12, 2023 08:33 AM ADMINISTRATIVE NOT E: LOCAL TITLE: CONTACT NOTE STL STANDARD TITLE: ADMINISTRATIVE NOTE DATE OF NOTE: DEC 12, 2023@08:33 ENTRY DATE: DEC 12, 2023@08:33:54 AUTHOR: FELICITAS CHEW EXP COSIGNER: URGENCY: STATUS: COMPLETED CONTACT NOTE STL Has ADDENDA Veterans name and last 4 were used to verify identity Verified Veterans telephone #/Updated telephone number in the system REASON FOR CALL: Speak with a provider: (please add RNCM/Provider as an additional signer to the note) Provider: Americo Question: 's Granddaughter Cassandra had question concerning trimmers that he is having. [place] was just hsd several test done. Call Back number: Her contact # /manuel/ FELICITAS CHEW Lead Medical Support Signed: 12/12/2023 08:39 Receipt Acknowledged By: 12/12/2023 09:21 /manuel/ AGUEDA DAWSON Registered Nurse 12/12/2023 ADDENDUM STATUS: COMPLETED RNCM called patient's granddaughter back, Cassandra stated that patient's just Sunday. Patient has been experiencing slurred speech for a min. or so ,but then goes away. RNCM advised patient to present himself to the ED for evaluation. Cassandra stated that they did go to the ED, and he was cleared. Cassandra also stated that patient refuses to go to the ED, RNCM continue encouraged to present patient to the ED. /manuel/ AGUEDA DAWSON Registered Nurse Signed: 12/12/2023 09:26 FELICITAS CHEW [facility]
--- OUTSIDE RECORDS SUMMARY | 2024-05-17 21:50 | XMS_ITS | Encounter Summary ---
Author Name [facility] [place] [facility] [place] Address [address] [place] [address] Care Team Providers Care Protective Service Specialist Name Role Phone MEAGHAN QUINTEROS Primary Care [...] PART B Aug 12, 2001 PART B [id number] JESUS ABRAHAM PATIENT MEDICARE (WNR) MEDICARE (M) PART A Aug 12, 2001 PART A [id number] [phone] JESUS ABRAHAM PATIENT Selected Encounter This section includes the information on record at [place] for the Encounter. Date/Time Encounter Type Encounter Description Reason Provider Source Dec 24, 2023 02:37 PM CPTR OPHTH DX IMG POST SEGMT OPHTHALMOLOGY ICD-10-CM H35.321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, right eye, with inact chrdl neovas DIANE TANNER IHOlesya Encounter Template Text not used by VA Assessments - Encounter Diagnoses This section includes the primary and secondary diagnoses documented for the Encounter. Date/Time Primary/Secondary Diagnosis Diagnosis Name Provider Source Dec 24, 2023 02:39 PM PRIMARY Exdtve age-rel mclr degn, right eye, with inact chrdl DIANE Hong [facility] Plan of Treatment: Future Appointments (+ 6 months) and Future Tests (+/- 45 days) The Plan of Treatment section includes future care activities for the patient from all [place] [facility] This section includes future appointments and future orders which are active, pending or scheduled. Future Appointments This section includes appointments that were scheduled to occur 6 months from the date of the Encounter, up to a maximum of 20 appointments. The data comes from all [facility]. Appointment Date/Time Appointment Type Appointme nt Facility Name Jan 01, 2024 02:00 PM AMBULATORY - REHAB MEDICIN E [facility] Feb 29, 2024 01:30 PM AMBULATORY - MEDICINE [facility] Mar 03, 2024 09:15 AM AMBULATORY - MEDICINE [facility] Mar 08, 2024 01:30 PM AMBULATORY - MEDICINE [facility] Mar 10, 2024 12:45 PM AMBULATORY - SURGERY [facility] Apr 16, 2024 11:00 AM AMBULATORY - REHAB MEDICIN E [facility] May 15, 2024 11:00 AM AMBULATORY - SURGERY [facility] May 26, 2024 12:30 PM AMBULATORY - SURGERY [facility] Active, Pending, and Scheduled Orders This section includes a listing of several types of active, pending, and scheduled orders, including clinic medications orders, diagnostic test orders, procedure orders and consult orders; where the start date of the order is 45 days before the date of the Encounter or 45 days after the date of theEncounter. The data comes from all [facility]. Test Date/Time Test Type Test Details Facility Name Nov 13, 2023 09:10 PM Laboratory - Chemi stry Order MRSA SURVL NARES DNA NARES WC [facility] Nov 21, 2023 12:00 AM Laboratory - Chemi stry Order HGA1C BLOOD SP [facility] Nov 21, 2023 12:00 AM Laboratory - Chemi stry Order VITAMIN D, 25-HYDROXY GOLD/RED SST SERUM SP [facility] Social History: Smoking Status (Most current) and Tobacco Use (All prior to encounter date) This section includes the most current, and the historical, smoking and tobacco- related health factors from the [place] facility where the Encounter took place. Current Smoking Status This section includes the most current smoking, or tobacco-related health factor, from the [place] facility where the Encounter took place. Date/Time Current Smoking Status Comment Dena ity Nov 23, 2023 11:30 AM VA-TOBACCO NEVER USED [facility] Tobacco Use History This section includes a history of the smoking, or tobacco-related health factors, that were collected on or before the date of the Encounter. The data comes from the [place] facility where the Encounter took place. Date/Time Smoking Status/Tobacco Use Comment F acbailey Nov 23, 2023 11:30 AM VA-TOBACCO NEVER USED [facility] Nov 23, 2023 11:30 AM VA-TOBACCO QUIT 15 YRS OR MORE [facility] Nov 14, 2023 01:18 AM ORYX ADMIT TOBACCO SCREEN NO [facility] Aug 04, 2022 11:30 AM VA-TOBACCO NEVER USED [facility] Mar 11, 2021 10:30 AM VA-TOBACCO FORMER USER [facility] Mar 11, 2021 10:30 AM VA-TOBACCO QUIT 15 YRS OR MORE [facility] Apr 19, 2018 09:07 AM VA-TOBACCO FORMER USER [facility] Apr 19, 2018 09:07 AM VA-TOBACCO QUIT 15 YRS OR MORE [facility] Jul 24, 2017 08:16 AM QUIT TOBACCO >7 YEARS AGO [facility] Apr 16, 2017 12:43 PM QUIT TOBACCO >7 YEARS AGO [facility] Feb 01, 2017 11:47 AM LIFETIME NON-USER OF TOBACCO [facility] Nov 15, 2016 09:00 AM QUIT TOBACCO >7 YEARS AGO [facility] September 11, 2016 06:27 PM QUIT TOBACCO >7 YEARS AGO [facility] Dec 09, 2015 10:17 AM QUIT TOBACCO >7 YEARS AGO [facility] Jan 05, 2015 08:22 AM CURRENT TOBACCO USER [facility] Jan 05, 2015 08:22 AM TOBACCO MEDS OFFER ED BUT DECLINED [facility] Mar 18, 2014 10:40 AM CURRENT TOBACCO USER [facility] Mar 18, 2014 10:40 AM TOBACCO MEDS OFFER ED BUT DECLINED [facility] Nov 04, 2013 09:40 AM CURRENT TOBACCO USER [facility] Nov 26, 2012 08:10 AM QUIT TOBACCO >7 YEARS AGO [facility] May 03, 2009 08:45 AM QUIT TOBACCO >7 YEARS AGO [facility] Jul 06, 2008 08:46 AM CURRENT TOBACCO USER [facility] Jul 25, 2007 12:30 PM QUIT TOBACCO >12 M O & <7 YRS AGO [facility] Jun 07, 2006 09:21 AM CURRENT TOBACCO USER [facility] Jun 07, 2006 09:21 [facility] Aug 25, 2005 11:01 AM CURRENT TOBACCO USER [facility] Aug 25, 2005 11:01 AM TOBACCO CONTEMPLATION STAGE [facility] Oct 25, 2004 10:18 AM CURRENT NON-TOBACC O USER-HX OF USE [facility] Oct 25, 2004 10:18 AM TOBACCO TERMINATION STAGE [facility] Aug 24, 2003 10:43 AM CURRENT NON-TOBACC O USER-HX OF USE [facility] Aug 24, 2003 10:43 AM TOBACCO TERMINATION STAGE [facility] Aug 05, 2002 09:55 AM CURRENT NON-TOBACC O USER-HX OF USE QUIT [facility] Apr 15, 2001 08:28 AM CURRENT NON-TOBACC O USER-HX OF USE quit in 1979 [facility] Advance Directives: All historical and current Section Date Range: From patient's date of to the date document was created. This section includes ALL of a patient's completed or amended VA Advance and Rescinded Directives. The entries below indicate that a directive exists for the patient, but an actual copy is not included with this document. The data comes from all [place] facilities. Date Advance Directives Provider Source Oct 19, 2023 ADVANCE DIRECTIVE WANG MURILLO [facility] Dec 12, 2022 RESCINDED ADVANCE DIRECTIVE JITENDRA MEADOWS [facility] September 12, 2016 ADVANCE DIRECTIVE DISCUSSION YVETTE MEADOWS [facility] Encounter Notes: All associated encounter notes This section contains the clinical notes associated to the Encounter. Date/Time Encounter Note(s) Provider Source Dec 24, 2023 02:37 PM OPHTHALMOLOGY NOTE : LOCAL TITLE: OPHTHALMOLOGY NOTE ST STANDARD TITLE: OPHTHALMOLOGY NOTE DATE OF NOTE: DEC 24, 2023@14:37 ENTRY DATE: DEC 24, 2023@14:37:56 AUTHOR: DIANE TANNER EXP COSIGNER: URGENCY: STATUS: COMPLETED OCT Macula OU Complete. Results in Forum for provider review. Opthalmic Medications Administered OU @ 1442 Ophthetic 0.5% Tropicamide 1% Phenylephrine 2.5% Tonopen: OD = 12 OS = 11 /es/ DIANE TANNER [facility],OPHTHALMOLOGY Signed: 12/24/2023 14:43 DIANE TANNER [facility]
--- OUTSIDE RECORDS SUMMARY | 2024-05-17 21:50 | XMS_ITS | Encounter Summary ---
Author Name [facility] [place] [facility] [place] Address [address] [place] [address] Care Team Providers Care Craft Coordinator Name Role Phone MEAGHAN QUINTEROS Primary Care [...] PART A Aug 12, 2001 PART A [id number] JESUS ABRAHAM PATIENT MEDICARE (WNR) MEDICARE (M) PART B Aug 12, 2001 PART B [id number] [phone] JESUS ABRAHAM PATIENT Selected Encounter This section includes the information on record at [place] for the Encounter. 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 This section includes future appointments and future orders which are active, pending or scheduled. Future Appointments This section includes appointments that were scheduled to occur 6 months from the date of the Encounter, up to a maximum of 20 appointments. The data comes from all [facility]. Appointment Date/Time Appointment Type Appointme nt Facility Name Jan 01, 2024 02:00 [facility] Feb 29, 2024 01:30 PM AMBULATORY - MEDICINE [facility] Mar 03, 2024 09:15 AM AMBULATORY - MEDICINE [facility] Mar 08, 2024 01:30 PM AMBULATORY - MEDICINE [facility] Mar 10, 2024 12:45 PM AMBULATORY - SURGERY [facility] Apr 16, 2024 11:00 AM AMBULATORY - REHAB [facility] May 15, 2024 11:00 AM AMBULATORY - SURGERY [facility] May 26, 2024 12:30 PM AMBULATORY - SURGERY [facility] Active, Pending, and Scheduled Orders This section includes a listing of several types of active, pending, and scheduled orders, including clinic medications orders, diagnostic test orders, procedure orders and consult orders; where the start date of the order is 45 days before the date of the Encounter or 45 days after the date of theEncounter. The data comes from all [facility]. Test Date/Time Test Type Test Details Facility Name Nov 13, 2023 09:10 PM Laboratory - Chemi stry Order MRSA SURVL NARES DNA NARES WC [facility] Nov 21, 2023 12:00 AM Laboratory - Chemi stry Order VITAMIN D, 25-HYDROXY GOLD/RED SST SERUM SP [facility] Nov 21, 2023 12:00 AM Laboratory - Chemi stry Order HGA1C BLOOD SP [facility] Social History: Smoking Status (Most current) and Tobacco Use (All prior to encounter date) This section includes the most current, and the historical, smoking and tobacco- related health factors from the [place] facility where the Encounter took place. Current Smoking Status This section includes the most current smoking, or tobacco-related health factor, from the [place] facility where the Encounter took place. Date/Time Current Smoking Status Comment Facil ity Nov 23, 2023 11:30 AM [place]-TOBACCO NEVER USED [facility] Tobacco Use History This section includes a history of the smoking, or tobacco-related health factors, that were collected on or before the date of the Encounter. The data comes from the [place] facility where the Encounter took place. Date/Time Smoking Status/Tobacco Use Comment F acility Nov 23, 2023 11:30 AM VA-TOBACCO NEVER USED [facility] Nov 23, 2023 11:30 AM VA-TOBACCO QUIT 15 YRS OR MORE [facility] Nov 14, 2023 01:18 AM ORYX ADMIT TOBACCO SCREEN NO [facility] Aug 04, 2022 11:30 AM VA-TOBACCO NEVER USED [facility] Mar 11, 2021 10:30 AM VA-TOBACCO FORMER USER [facility] Mar 11, 2021 10:30 AM VA-TOBACCO QUIT 15 YRS OR MORE [facility] Apr 19, 2018 09:07 AM VA-TOBACCO FORMER USER [facility] Apr 19, 2018 09:07 AM VA-TOBACCO QUIT 15 YRS OR MORE [facility] Jul 24, 2017 08:16 AM QUIT TOBACCO >7 YEARS AGO [facility] Apr 16, 2017 12:43 PM QUIT TOBACCO >7 YEARS AGO [facility] Feb 01, 2017 11:47 AM LIFETIME NON-USER OF TOBACCO [facility] Nov 15, 2016 09:00 AM QUIT TOBACCO >7 YEARS AGO [facility] September 11, 2016 06:27 PM QUIT TOBACCO >7 YEARS AGO [facility] Dec 09, 2015 10:17 AM QUIT TOBACCO >7 YEARS AGO [facility] Jan 05, 2015 08:22 AM CURRENT TOBACCO USER [facility] Jan 05, 2015 08:22 AM TOBACCO MEDS OFFER ED BUT DECLINED [facility] Mar 18, 2014 10:40 AM CURRENT TOBACCO USER [facility] Mar 18, 2014 10:40 AM TOBACCO MEDS OFFER ED BUT DECLINED [facility] Nov 04, 2013 09:40 AM CURRENT TOBACCO USER [facility] Nov 26, 2012 08:10 AM QUIT TOBACCO >7 YEARS AGO [facility] May 03, 2009 08:45 AM QUIT TOBACCO >7 YEARS AGO [facility] Jul 06, 2008 08:46 AM CURRENT TOBACCO USER [facility] Jul 25, 2007 12:30 PM QUIT TOBACCO >12 M O & <7 YRS AGO [facility] Jun 07, 2006 09:21 AM CURRENT TOBACCO USER [facility] Jun 07, 2006 09:21 [facility] Aug 25, 2005 11:01 AM CURRENT TOBACCO USER [facility] Aug 25, 2005 11:01 AM TOBACCO CONTEMPLATION STAGE [facility] Oct 25, 2004 10:18 AM CURRENT NON-TOBACC O USER-HX OF USE [facility] Oct 25, 2004 10:18 AM TOBACCO TERMINATION STAGE [facility] Aug 24, 2003 10:43 AM CURRENT NON-TOBACC O USER-HX OF USE [facility] Aug 24, 2003 10:43 AM TOBACCO TERMINATION STAGE [facility] Aug 05, 2002 09:55 AM CURRENT NON-TOBACC O USER-HX OF USE QUIT [facility] Apr 15, 2001 08:28 AM CURRENT NON-TOBACC O USER-HX OF USE quit in 1979 [facility] Advance Directives: All historical and current Section Date Range: From patient's date of to the date document was created. This section includes ALL of a patient's completed or amended [place] Advance and Rescinded Directives. The entries below indicate that a directive exists for the patient, but an actual copy is not included with this document. The data comes from all [place] facilities. Date Advance Directives Provider Source Oct 19, 2023 ADVANCE DIRECTIVE WANG MURILLO [facility] Dec 12, 2022 RESCINDED ADVANCE DIRECTIVE [facility]DRA [facility] September 12, 2016 ADVANCE DIRECTIVE DISCUSSION YVETTE MEADOWS [facility] Encounter Notes: All associated encounter notes This section contains the clinical notes associated to the Encounter. Date/Time Encounter Note(s) Provider Source Dec 24, 2023 03:25 PM OPHTHALMOLOGY CONS ULT: LOCAL TITLE: OPHTHALMOLOGY CONSULT STL STANDARD TITLE: OPHTHALMOLOGY CONSULT DATE OF NOTE: DEC 24, 2023@15:25 ENTRY DATE: DEC 24, 2023@15:26:01 AUTHOR: GRACE DOMINGO COSIGNER: URGENCY: STATUS: COMPLETED RETINA CLINIC = CC/HPI: Here for wet AMD f/u. Feels vision is the same. [place] OD CF was CF was sc20/200 was 20/200 was sc 20/200-1 (MD fernandez) was 20/200 was 20/80 was 20/80 was 20/200-1 OS ph20/70 was phcc20/50 was 20/40-3 was 20/40 was 20/40 was 20/60 was 20/50 was 20/40 was 20/40 was 20/40 was 20/50-1 IOP 04/23 SLEx OD OS L/L wnl wnl [...] No complications. 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
--- OUTSIDE RECORDS SUMMARY | 2024-05-17 21:51 | XMS_ITS | Encounter Summary ---
Author Name [facility] [place] Organization [facility] [place] Address [address] [place] [address] Care Team Providers Care Didactic Program In Dietetics Director Name Role Phone MEAGHAN QUINTEROS Primary Care [...] PART A Aug 12, 2001 PART A [id number] [place] PATIENT MEDICARE (WNR) MEDICARE (M) PART B Aug 12, 2001 PART B [id number] JESUS ABRAHAM PATIENT Selected Encounter This section includes the information on record at [place] for the Encounter. Date/Time Encounter Type Encounter Description Reason Provider Source Nov 14, 2023 12:09 PM 1ST HOSP IP/OBS MODERATE 55 GENERAL INTERNAL MEDICINE ICD-10-CM R53.82 Chronic fatigue, unspecified ABDOUL BURGOS IHOlesya Encounter Template Text not used by [place] Assessments - Encounter Diagnoses This section includes the primary and secondary diagnoses documented for the Encounter. Date/Time Primary/Secondary Diagnosis Diagnosis Name Provider Source Nov 15, 2023 12:09 PM PRIMARY Chronic fatigue, unspecified ABDOUL BURGOS [facility] Nov 15, 2023 12:09 PM SECONDARY Athscl heart disease of [place] coronary artery w/o ang pctrs ABDOUL BURGOS Ivon [facility] Nov 15, 2023 12:09 PM SECONDARY Essential (primary) hypertension ABDOUL BURGOS Ivon [facility] Nov 15, 2023 12:09 PM SECONDARY Type 2 diabetes mellitus without complications ABDOUL BURGOS [facility] Plan of Treatment: Future Appointments (+ 6 months) and Future Tests (+/- 45 days) The Plan of Treatment section includes future care activities for the patient from all [facility]. This section includes future appointments and future orders which are active, pending or scheduled. Future Appointments This section includes appointments that were scheduled to occur 6 months from the date of the Encounter, up to a maximum of 20 appointments. The data comes from all [facility]. Appointment Date/Time Appointment Type Appointme nt Facility Name Nov 23, 2023 09:00 AM AMBULATORY - MEDICINE [facility] Nov 23, 2023 10:00 AM AMBULATORY - MEDICINE [facility] Nov 23, 2023 11:30 AM AMBULATORY - MEDICINE [facility] Dec 24, 2023 02:45 PM AMBULATORY - SURGERY [facility] Jan 01, 2024 02:00 PM [facility] Feb 29, 2024 01:30 PM AMBULATORY - MEDICINE [facility] Mar 03, 2024 09:15 AM AMBULATORY - MEDICINE [facility] Mar 08, 2024 01:30 PM AMBULATORY - MEDICINE [facility] Mar 10, 2024 12:45 PM AMBULATORY - SURGERY [facility] Apr 16, 2024 11:00 [facility] May 15, 2024 11:00 AM AMBULATORY - SURGERY [facility] Active, Pending, and Scheduled Orders This section includes a listing of several types of active, pending, and scheduled orders, including clinic medications orders, diagnostic test orders, procedure orders and consult orders; where the start date of the order is 45 days before the date of the Encounter or 45 days after the date of theEncounter. The data comes from all [place] treatment facilities. Test Date/Time Test Type Test Details Facility Name Nov 13, 2023 09:10 PM Laboratory - Chemi stry Order MRSA SURVL NARES DNA NARES WC [facility] Nov 21, 2023 12:00 AM Laboratory - Chemi stry Order HGA1C BLOOD SP [facility] Nov 21, 2023 12:00 AM Laboratory - Chemi stry Order VITAMIN D, 25-HYDROXY GOLD/RED SST SERUM SP [facility] Lab Results: +/- 30 days of the encounter This section includes the Chemistry and Hematology Lab Results on record with [place] for the patient. Radiology Reports and Pathology Reports are provided separately, in subsequent sections. Lab Results This section contains the Chemistry/Hematology Results that were resulted 30 days before or 30 daysafter the date of the Encounter. Date/Time Source Result Type Result - Unit Interpretation Reference Range Comment Nov 14, 2023 05:33 AM [facility] TSH W/ REFLEX FT4 (STL) Specimen Type: PLASMA No comment entered. Ordering Provider: NAYLA DUNN Report Released Date/Time: Nov 14, 2023 04:23 AM Reporting Lab: [facility] [address] [facility] [address] Performing Lab: [address] [address] TSH 3.546 u[IU]/mL 0.47-5 Nov 14, 2023 05:33 AM [facility] MAGNESIUM Specimen Type: PLASMA Comment: No hemolysis noted. Ordering Provider: NALYA DUNN Report Released Date/Time: Nov 14, 2023 04:23 AM Reporting Lab: [address] [address] Performing Lab: [address] [address] MAGNESIUM 2.1 mg/dL 1.6-2.6 Nov 14, 2023 05:33 AM [facility] PHOSPHOROUS Specimen Type: PLASMA Comment: No hemolysis noted. Ordering Provider: NAYLA DUNN Report Released Date/Time: Nov 14, 2023 04:23 AM Reporting Lab: [address] [address] Performing Lab: [address] [address] PHOSPHOROUS 2.9 mg/dL 2.3-4.7 Nov 14, 2023 05:33 AM [facility] CBC Specimen Type: BLOOD Comment: Manual diff performed on 11/13/23 Ordering Provider: NAYLA DUNN Report Released Date/Time: Nov 14, 2023 04:23 AM Reporting Lab: [address] [address] Performing Lab: [address] [address] WBC 12.8 10*3/uL H 3.6-11.2 RBC 3.87 [...] 10*3/uL 0.00-0.20 Nov 14, 2023 05:33 AM [facility] BASIC METABOLIC PANEL Specimen Type: PLASMA Comment: No hemolysis noted. Ordering Provider: NAYLA DUNN Report Released Date/Time: Nov 14, 2023 04:23 AM Reporting Lab: [address] [address] Performing Lab: [address] [address] CREATININE 0.78 mg/dL 0.7-1.3 UREA NITROGEN 12.0 mg/dL 9.0-25.0 GLUCOSE 83 mg/dL 72-99 SODIUM 136 meq/L 136-145 POTASSIUM 4.4 meq/L 3.5-5 CHLORIDE 103 meq/L 98-107 CARBON DIOXIDE 26 meq/L 22-31 CALCIUM 8.8 mg/dL 8.4-10.4 EGFR (CKD-EPI 2020) 86.3 >60 Nov 14, 2023 01:30 AM [facility] TROPONIN I Specimen Type: PLASMA No comment entered. Ordering Provider: NAYLA DUNN Report Released Date/Time: Nov 14, 2023 01:10 AM Reporting Lab: [address] [address] Performing Lab: [address] [address] TROPONIN I 0.044 ng/mL H 0-0.033 Nov 13, 2023 10:00 PM [facility] MRSA SURVL NARES DNA Specimen Type: [...] Nov 13, 2023 09:10 PM Reporting Lab: [address] [address] Performing Lab: [address] [address] MRSA SURVL NARES DNA Negative Negative Nov 13, 2023 07:10 PM [facility] TROPONIN I Specimen Type: PLASMA No comment entered. Ordering Provider: CYRUS EVANS Report Released Date/Time: Nov 13, 2023 06:56 PM Reporting Lab: [address] [address] Performing Lab: [address] [address] TROPONIN I 0.045 ng/mL H 0-0.033 Nov 13, 2023 06:20 PM [facility] BLOOD GAS PANEL ABG ([facility]) Specimen Type: VENOUS BLOOD Comment: Test Performed by: [id number] Meter #: [id number] Ordering Provider: CYRUS EVANS Report Released Date/Time: Nov 13, 2023 06:20 PM Reporting Lab: [address] [address] Performing Lab: [address] [address] GEM PH 7.38 7.31-7.41 GEM PCO2 52 [...] TEMP 37.0 Nov 13, 2023 06:15 PM [facility] COVID-19 DIAGNOSTIC (FLU/RSV)(STL) Specimen Type: NASOPHARYNX [...] Nov 13, 2023 03:21 PM Reporting Lab: [facility] [address] [place] [address] Performing Lab: [address] [address] INFLUENZA A Negative Negative INFLUENZA B Negative Negative COVID-19 (L-PB) Not Detected Not Detected RSV (Cepheid) NEGATIVE Negative Nov 13, 2023 06:00 PM [facility] PT/INR NEW ([facility]) Specimen Type: PLASMA No comment entered. Ordering Provider: CYRUS EVANS Report Released Date/Time: Nov 13, 2023 03:21 PM Reporting Lab: [facility] [address] [facility] [facility] [address] Performing Lab: [facility] [address] [place] [address] PROTIME 12.7 s H 9.4-12.5 INR VALUE 1.1 {INR} Nov 13, 2023 06:00 PM [facility] APTT Specimen Type: PLASMA No comment entered. Ordering Provider: CYRUS EVANS Report Released Date/Time: Nov 13, 2023 03:21 PM Reporting Lab: [facility] [address] [facility] [address] Performing Lab: [facility] [address] [place] [address] APTT 33.7 s 26.7-39.9 Nov 13, 2023 04:59 PM [facility] URINALYSIS W/ CX REFLEX (STL-PB) Specimen Type: URINE No comment entered. Ordering Provider: CYRUS EVANS Report Released Date/Time: Nov 13, 2023 03:12 PM Reporting Lab: [facility] [address] [facility] [address] Performing Lab: [facility] [address] [facility] [address] [address] URINE COLOR Yellow Yellow U.BILIRUBIN Negative mg/dL [...] 1.005-1.02 9 Nov 13, 2023 02:20 PM [facility] TROPONIN I Specimen Type: PLASMA Comment: No hemolysis noted. Ordering Provider: CYRUS EVANS Report Released Date/Time: Nov 13, 2023 02:14 PM Reporting Lab: [facility] [address] [facility] [address] Performing Lab: [facility] [address] [facility] [address] TROPONIN I 0.044 ng/mL H 0-0.033 Nov 13, 2023 02:20 PM [facility] COMPREHENSIVE METABOLIC PANEL Specimen Type: PLASMA Comment: No hemolysis noted. Ordering Provider: CYRUS EVANS Report Released Date/Time: Nov 13, 2023 02:14 PM Reporting Lab: [facility] [address] [facility] [facility] [address] Performing Lab: [facility] [address] [facility] [facility] [address] CREATININE 1.17 mg/dL 0.7-1.3 UREA NITROGEN 12.7 [...] 60.3 >60 Nov 13, 2023 02:20 PM [facility] CBC Specimen Type: BLOOD No comment entered. Ordering Provider: CYRUS EVANS Report Released Date/Time: Nov 13, 2023 02:14 PM Reporting Lab: [facility] [address] [facility] [address] Performing Lab: [facility] [address] [facility] [facility] [address] WBC 12.5 10*3/uL H 3.6-11.2 RBC 4.21 [...] Height Weight Body Mass Index Source Nov 14, 2023 09:15 AM 0 [facility] Nov 14, 2023 08:10 AM 98.4 70 119/62 18 95 [facility] Nov 14, 2023 06:10 AM 97 66 121/70 18 96 0 [facility] Nov 14, 2023 12:51 AM 0 [facility] Social History: Smoking Status (Most current) and Tobacco Use (All prior to encounter date) This section includes the most current, and the historical, smoking and tobacco- related health factors from the [place] facility where the Encounter took place. Current Smoking Status This section includes the most current smoking, or tobacco-related health factor, from the [place] facility where the Encounter took place. Date/Time Current Smoking Status Comment Dena sarkar Nov 14, 2023 01:18 AM ORYX ADMIT TOBACCO SCREEN NO [facility] Tobacco Use History This section includes a history of the smoking, or tobacco-related health factors, that were collected on or before the date of the Encounter. The data comes from the [place] facility where the Encounter took place. Date/Time Smoking Status/Tobacco Use Comment F acility Aug 04, 2022 11:30 AM VA-TOBACCO NEVER USED [facility] Mar 11, 2021 10:30 AM VA-TOBACCO FORMER USER [facility] Mar 11, 2021 10:30 AM VA-TOBACCO QUIT 15 YRS OR MORE [facility] Apr 19, 2018 09:07 AM VA-TOBACCO FORMER USER [facility] Apr 19, 2018 09:07 AM VA-TOBACCO QUIT 15 YRS OR MORE [facility] Jul 24, 2017 08:16 AM QUIT TOBACCO >7 YEARS AGO [facility] Apr 16, 2017 12:43 PM QUIT TOBACCO >7 YEARS AGO [facility] Feb 01, 2017 11:47 AM LIFETIME NON-USER OF TOBACCO [facility] Nov 15, 2016 09:00 AM QUIT TOBACCO >7 YEARS AGO [facility] September 11, 2016 06:27 PM QUIT TOBACCO >7 YEARS AGO [facility] Dec 09, 2015 10:17 AM QUIT TOBACCO >7 YEARS AGO [facility] Jan 05, 2015 08:22 AM CURRENT TOBACCO USER [facility] Jan 05, 2015 08:22 AM TOBACCO MEDS OFFER ED BUT DECLINED [facility] Mar 18, 2014 10:40 AM CURRENT TOBACCO USER [facility] Mar 18, 2014 10:40 AM TOBACCO MEDS OFFER ED BUT DECLINED [facility] Nov 04, 2013 09:40 AM CURRENT TOBACCO USER [facility] Nov 26, 2012 08:10 AM QUIT TOBACCO >7 YEARS AGO [facility] May 03, 2009 08:45 AM QUIT TOBACCO >7 YEARS AGO [facility] Jul 06, 2008 08:46 AM CURRENT TOBACCO USER [facility] Jul 25, 2007 12:30 PM QUIT TOBACCO >12 M O & <7 YRS AGO [facility] Jun 07, 2006 09:21 AM CURRENT TOBACCO USER [facility] Jun 07, 2006 09:21 [facility] Aug 25, 2005 11:01 AM CURRENT TOBACCO USER [facility] Aug 25, 2005 11:01 AM TOBACCO CONTEMPLATION STAGE [facility] Oct 25, 2004 10:18 AM CURRENT NON-TOBACC O USER-HX OF USE [facility] Oct 25, 2004 10:18 AM TOBACCO TERMINATION STAGE [facility] Aug 24, 2003 10:43 AM CURRENT NON-TOBACC O USER-HX OF USE [facility] Aug 24, 2003 10:43 AM TOBACCO TERMINATION STAGE [facility] Aug 05, 2002 09:55 AM CURRENT NON-TOBACC O USER-HX OF USE QUIT [facility] Apr 15, 2001 08:28 AM CURRENT NON-TOBACC O USER-HX OF USE quit in 1979 [facility] Advance Directives: All historical and current Section Date Range: From patient's date of to the date document was created. This section includes ALL of a patient's completed or amended [place] Advance and Rescinded Directives. The entries below indicate that a directive exists for the patient, but an actual copy is not included with this document. The data comes from all [place] facilities. Date Advance Directives Provider Source Oct 19, 2023 ADVANCE DIRECTIVE WANG MURILLO [facility] Dec 12, 2022 RESCINDED ADVANCE DIRECTIVE JITENDRA MEADOWS [facility] September 12, 2016 ADVANCE DIRECTIVE DISCUSSION YVETTE MEADOWS [facility] Radiology Reports: +/- 30 days of [...] the Encounter. The data comes from all [place] treatment facilities. Date/Time Radiology Report Provider Source Nov 23, 2023 09:03 AM NM MYOCARDIAL P SPECT STRESS/REST-P: JESUS ABRAHAM [id number] -[id number] M Exm Date: NOV 23, 2023@09:03 Req Phys: MEAGHAN QUINTEROS Loc: [facility]-PC TM-C SAME DAY CLINIC (Re Img Loc: [facility]-NUCLEAR MEDICINE Service: Unknown [facility] [address] [place] [address] (Case [id number] COMPLETE) NM MYOCARDIAL PERF SPECT STRESS/R(NM Detailed) CPT:49302 Reason for Study: CHEST PAIN, ASSESS SUSPECTED [...] 23, 2023 Date Verified: NOV 23, 2023 Agency Operator E-Sig:/ES/AGUSTO LIPSCOMB Report: PATIENT NAME: JESUS ABRAHAM CASE #: [id number], [id number], [id number], [id number] EXAMINATION: Rest/Lexiscan Stress Gated SPECT Myocardial Imaging [...] code: 1000. Dictated by Rik Brand MD (Exit Booth Agent), Rodney Smith MD (Exit Booth Agent) IAgusto, have reviewed the images and report and concur with these findings. Primary Interpreting Staff: AGUSTO LIPSCOMB, RADIOLOGIST (Agency Operator) Primary Interpreting Resident: RIK BRAND MD, VENDOR MANAGEMENT CONSULTANT /AGUSTO SEN [facility] Nov 13, 2023 04:[address] HEAD W/O CONT: JESUS ABRAHAM [id number] -[id number] M Exm Date: NOV 13, 2023@16:07 Req Phys: CYRUS EVANS Loc: [facility]-EMERGENCY DEPT 2ND SHIFT (R Img Loc: [facility]-CT IMAGING [facility] Service: Unknown [facility] [address] [place] [address] (Case [id number] COMPLETE) CT HEAD W/O CONT (CT Detailed) CPT:98948 Reason for Study: confusion Clinical History: Responsible Attending: cyrus evans Attending Contact Number: [phone] Resident Contact Number: Allergies listed in CPRS chart: Patient has answered NKA Creatinine: CREATININE 1.17 mg/dL 11/13/2023 14:20 /eGFR: STL EGFR (within one year). CREATININE 1.17 mg/dL (11/13/23 14:20) Wt: 189.3 lb [85.87 kg] (10/18/2023 10:32) History of: Renal failure, chronic or acute renal disease: NO Report Status: Verified Date Reported: NOV 13, 2023 Date Verified: NOV 13, 2023 Agency Operator E-Sig: Report: CT HEAD W/O CONT HISTORY: confusion COMPARISON: CT head 06/11/2019 TECHNIQUE: Contiguous axial CT images from the level of the skull base through the skull apex, performed at the local [place] facility. 269 images were received by the [place] National Teleradiology Program (NTP) for interpretation. RADIATION [...] clinical concern, consider MRI. READING PHYSICIAN: Anjum [id number] 11/13/2023 15:14 PDT [facility] National Teleradiology Program [phone] (For Medical Practitioner Use Only) Attention Patients / Veterans: If you have questions or concerns about these test results, please contact your ordering provider or primary care team. Primary Interpreting Staff: RADIOLOGY,OUTSIDE SERVICE, Staff Physician / RADIOLOGY,OUTSIDE SERVICE [facility] Nov 13, 2023 03:59 PM CHEST X-RAY, 2 VIEWS: JESUS ABRAHAM [id number] -[id number] Ex Date: NOV 13, 2023@15:59 Req Phys: CYRUS EVANS Loc: -EMERGENCY DEPT 2ND SHIFT (R Img Loc: -MAIN RADIOLOGY SUITE Service: [facility], [facility] [address] [place] [address] (Case [id number] COMPLETE) CHEST X-RAY, 2 VIEWS (RAD Detailed) CPT:36767 Reason for Study: chest pain Clinical History: Report Status: Verified Date Reported: NOV 13, 2023 Date Verified: NOV 13, 2023 Agency Operator E-Sig:/ES/AGUSTO LIPSCOMB Report: INDICATION: chest pain COMPARISON: None TECHNIQUE: Chest 2 views Impression: No large pleural effusion or sizable pneumothorax. No new focal consolidation. Unchanged cardiomediastinal silhouette. Primary Interpreting Staff: AGUSTO LIPSCOMB, RADIOLOGIST (Agency Operator) /AGUSTO [place] [facility] Pathology Reports: +/- 30 days of [...] the Encounter. The data comes from all [place] treatment facilities. Date/Time Pathology Report Provider Source Nov 13, 2023 06:10 PM LR MICROBIOLOGY RE PORT: Accession [UID]: [id number] [[id number]] Received: Nov 13, 2023@18:22 Collection sample: B [...] Performed By: [facility] [address] [place] [address] CLIA# [id number] [address] [place] [id number] [facility] Nov 13, 2023 06:05 PM LR MICROBIOLOGY RE PORT: Accession [UID]: [id number] [[id number]] Received: Nov 13, 2023@18:23 Collection sample: B [...] --=--=--=--=--=--=-- Performing Laboratory: Bacteriology Report Performed By: [place] HANNY LOMBARDO [address] [facility] CLIA# [id number] [address] [facility] [address] [place] [address] [facility]
--- OUTSIDE RECORDS SUMMARY | 2024-05-17 21:51 | XMS_ITS ---
[place] DAILY HOSPITALIZATION DATA [facility] Encounter Summary Created on: May 17, 2024 JESUS ABRAHAM : 1935 Sex: Male Author Name [facility] [place] Organization [facility] [place] Address [address] [place] [address] Care Team Providers Care Jig Hand Name Role Phone MEAGHAN QUINTEROS Primary Care [...] PART A Aug 12, 2001 PART A [id number] JESUS BARAHAM PATIENT MEDICARE (WNR) MEDICARE (M) PART B Aug 12, 2001 PART B [id number] LEIGHJESUS PATIENT Selected Encounter This section includes the information on record at CT for the Encounter. Date/Time Encounter Type Encounter Description Reason Pro vider Source Nov 14, 2023 12:50 AM Inpatient Visit DAILY HOSPITALIZATION DATA HERNANDO CASTRO Encounter Template Text not used by CT [...] 23, 2023 09:00 AM AMBULATORY - MEDICINE [facility] Nov 23, 2023 10:00 AM AMBULATORY - MEDICINE [facility] Nov 23, 2023 11:30 AM AMBULATORY - MEDICINE [facility] Dec 24, 2023 02:45 PM AMBULATORY - SURGERY [facility] Jan 01, 2024 02:00 PM AMBULATORY - REHAB MEDICIN E [facility] Feb 29, 2024 01:30 PM AMBULATORY - MEDICINE [facility] Mar 03, 2024 09:15 AM AMBULATORY - MEDICINE [facility] Mar 08, 2024 01:30 PM AMBULATORY - MEDICINE [facility] Mar 10, 2024 12:45 PM AMBULATORY - SURGERY [facility] Apr 16, 2024 11:00 AM AMBULATORY - REHAB MEDICIN E [facility] May 15, 2024 11:00 AM AMBULATORY - SURGERY [facility] Active, Pending, and Scheduled Orders This [...] Order MRSA SURVL NARES DNA NARES WC [facility] Nov 21, 2023 12:00 AM Laboratory - Chemi stry Order HGA1C BLOOD SP [facility] Nov 21, 2023 12:00 AM Laboratory - Chemi stry Order VITAMIN D, 25-HYDROXY GOLD/RED SST SERUM SP [facility] Lab Results: +/- 30 days [...] Range Comment Nov 14, 2023 05:33 AM [facility] PHOSPHOROUS Specimen Type: PLASMA Comment: No hemolysis noted. Ordering Provider: NAYLA DUNN Report Released Date/Time: Nov 14, 2023 04:23 AM Reporting Lab: [facility] [address] [facility] [address] Performing Lab: [facility] [address] [facility] [address] PHOSPHOROUS 2.9 mg/dL 2.3-4.7 Nov 14, 2023 05:33 AM [facility] MAGNESIUM Specimen Type: PLASMA Comment: No hemolysis noted. Ordering Provider: NAYLA DUNN Report Released Date/Time: Nov 14, 2023 04:23 AM Reporting Lab: [facility] [address] [facility] [address] Performing Lab: [facility] [address] [facility] [address] MAGNESIUM 2.1 mg/dL 1.6-2.6 Nov 14, 2023 05:33 AM [facility] TSH W/ REFLEX FT4 (STL) Specimen Type: PLASMA No comment entered. Ordering Provider: NAYLA DUNN Report Released Date/Time: Nov 14, 2023 04:23 AM Reporting Lab: [facility] [address] [facility] [address] Performing Lab: [facility] [address] [facility] [address] TSH 3.546 u[IU]/mL 0.47-5 Nov 14, 2023 05:33 AM [facility] BASIC METABOLIC PANEL Specimen Type: PLASMA Comment: No hemolysis noted. Ordering Provider: NAYLA DUNN Report Released Date/Time: Nov 14, 2023 04:23 AM Reporting Lab: [facility] [address] Performing Lab: [address] [address] CREATININE 0.78 mg/dL 0.7-1.3 UREA NITROGEN 12.0 mg/dL 9.0-25.0 GLUCOSE 83 mg/dL 72-99 SODIUM 136 meq/L 136-145 POTASSIUM 4.4 meq/L 3.5-5 CHLORIDE 103 meq/L 98-107 CARBON DIOXIDE 26 meq/L 22-31 CALCIUM 8.8 mg/dL 8.4-10.4 EGFR (CKD-EPI 2020) 86.3 >60 Nov 14, 2023 05:33 AM [facility] CBC Specimen Type: BLOOD Comment: Manual diff performed on 11/13/23 Ordering Provider: NAYLA DUNN Report Released Date/Time: Nov 14, 2023 04:23 AM Reporting Lab: [address] [address] Performing Lab: [address] [address] WBC 12.8 10*3/uL H 3.6-11.2 RBC 3.87 [...] 10*3/uL 0.00-0.20 Nov 14, 2023 01:30 AM [facility] TROPONIN I Specimen Type: PLASMA No comment entered. Ordering Provider: NAYLA DUNN Report Released Date/Time: Nov 14, 2023 01:10 AM Reporting Lab: [facility] [address] [facility] [address] Performing Lab: [facility] [address] [place] [address] TROPONIN I 0.044 ng/mL H 0-0.033 Nov 13, 2023 10:00 PM [facility] MRSA SURVL NARES DNA Specimen Type: [...] Nov 13, 2023 09:10 PM Reporting Lab: [facility] [address] [place] [address] Performing Lab: [address] [address] MRSA SURVL NARES DNA Negative Negative Nov 13, 2023 07:10 PM [facility] TROPONIN I Specimen Type: PLASMA No comment entered. Ordering Provider: CYRUS EVANS Report Released Date/Time: Nov 13, 2023 06:56 PM Reporting Lab: [facility] [address] [place] [address] Performing Lab: [address] [address] TROPONIN I 0.045 ng/mL H 0-0.033 Nov 13, 2023 06:20 PM [facility] BLOOD GAS PANEL ABG (STL) Specimen Type: VENOUS BLOOD Comment: Test Performed by: [id number] Meter #: [id number] Ordering Provider: CYRUS EVANS Report Released Date/Time: Nov 13, 2023 06:20 PM Reporting Lab: [facility] [address] [place] [address] Performing Lab: [address] [address] GEM PH 7.38 7.31-7.41 GEM PCO2 52 [...] TEMP 37.0 Nov 13, 2023 06:15 PM [facility] COVID-19 DIAGNOSTIC (FLU/RSV)([facility]) Specimen Type: NASOPHARYNX Comment: Qualitative real-time PCR [...] Nov 13, 2023 03:21 PM Reporting Lab: [address] [address] Performing Lab: [facility] [address] [facility] [address] INFLUENZA A Negative Negative INFLUENZA B Negative Negative COVID-19 (L-PB) Not Detected Not Detected RSV (Cepheid) NEGATIVE Negative Nov 13, 2023 06:00 PM [facility] PT/INR NEW (L-MA) Specimen Type: PLASMA No comment entered. Ordering Provider: CYRUS EVANS Report Released Date/Time: Nov 13, 2023 03:21 PM Reporting Lab: [facility] [address] [facility] [address] Performing Lab: [address] [address] PROTIME 12.7 s H 9.4-12.5 INR VALUE 1.1 {INR} Nov 13, 2023 06:00 PM [facility] APTT Specimen Type: PLASMA No comment entered. Ordering Provider: CYRUS EVANS Report Released Date/Time: Nov 13, 2023 03:21 PM Reporting Lab: [facility] [address] [facility] [address] Performing Lab: [address] [address] APTT 33.7 s 26.7-39.9 Nov 13, 2023 04:59 PM [facility] URINALYSIS W/ CX REFLEX ([facility]) Specimen Type: URINE No comment entered. Ordering Provider: CYRUS EVANS Report Released Date/Time: Nov 13, 2023 03:12 PM Reporting Lab: [facility] [address] [facility] [address] Performing Lab: [address] [address] URINE COLOR Yellow Yellow U.BILIRUBIN Negative mg/dL [...] 1.005-1.02 9 Nov 13, 2023 02:20 PM [facility] TROPONIN I Specimen Type: PLASMA Comment: No hemolysis noted. Ordering Provider: CYRUS EVANS Report Released Date/Time: Nov 13, 2023 02:14 PM Reporting Lab: [place] [address] Performing Lab: [address] [address] TROPONIN I 0.044 ng/mL H 0-0.033 Nov 13, 2023 02:20 PM [facility] CBC Specimen Type: BLOOD No comment entered. Ordering Provider: CYRUS EVANS Report Released Date/Time: Nov 13, 2023 02:14 PM Reporting Lab: [address] [address] Performing Lab: [address] [address] WBC 12.5 10*3/uL H 3.6-11.2 RBC 4.21 [...] H 2.10-8.00 Nov 13, 2023 02:20 PM [facility] COMPREHENSIVE METABOLIC PANEL Specimen Type: PLASMA Comment: No hemolysis noted. Ordering Provider: CYRUS EVANS Report Released Date/Time: Nov 13, 2023 02:14 PM Reporting Lab: [facility] [address] [facility] [address] Performing Lab: [address] [address] CREATININE 1.17 mg/dL 0.7-1.3 UREA NITROGEN 12.7 [...] Source Nov 14, 2023 09:15 AM 0 [facility] Nov 14, 2023 08:10 AM 98.4 70 119/62 18 95 [facility] Nov 14, 2023 06:10 AM 97 66 121/70 18 96 0 [facility] Nov 14, 2023 12:51 AM 0 [facility] Social History: Smoking Status [...] Current Smoking Status Comment Facil ity Nov 14, 2023 01:18 AM ORYX ADMIT TOBACCO SCREEN NO [facility] Tobacco Use History This section includes a history of the smoking, or tobacco-related health factors, that were collected on or before the date of the Encounter. The data comes from the CT facility where the Encounter took place. Date/Time Smoking Status/Tobacco Use Comment F acility Aug 04, 2022 11:30 AM VA-TOBACCO NEVER USED [facility] Mar 11, 2021 10:30 AM VA-TOBACCO FORMER USER [facility] Mar 11, 2021 10:30 AM VA-TOBACCO QUIT 15 YRS OR MORE [facility] Apr 19, 2018 09:07 AM VA-TOBACCO FORMER USER [facility] Apr 19, 2018 09:07 AM VA-TOBACCO QUIT 15 YRS OR MORE [facility] Jul 24, 2017 08:16 AM QUIT TOBACCO >7 YEARS AGO [facility] Apr 16, 2017 12:43 PM QUIT TOBACCO >7 YEARS AGO [facility] Feb 01, 2017 11:47 AM LIFETIME NON-USER OF TOBACCO [facility] Nov 15, 2016 09:00 AM QUIT TOBACCO >7 YEARS AGO [facility] September 11, 2016 06:27 PM QUIT TOBACCO >7 YEARS AGO [facility] Dec 09, 2015 10:17 AM QUIT TOBACCO >7 YEARS AGO [facility] Jan 05, 2015 08:22 AM CURRENT TOBACCO USER [facility] Jan 05, 2015 08:22 AM TOBACCO MEDS OFFER ED BUT DECLINED [facility] Mar 18, 2014 10:40 AM CURRENT TOBACCO USER [facility] Mar 18, 2014 10:40 AM TOBACCO MEDS OFFER ED BUT DECLINED [facility] Nov 04, 2013 09:40 AM CURRENT TOBACCO USER [facility] Nov 26, 2012 08:10 AM QUIT TOBACCO >7 YEARS AGO [facility] May 03, 2009 08:45 AM QUIT TOBACCO >7 YEARS AGO [facility] Jul 06, 2008 08:46 AM CURRENT TOBACCO USER [facility] Jul 25, 2007 12:30 PM QUIT TOBACCO >12 M O & <7 YRS AGO [facility] Jun 07, 2006 09:21 AM CURRENT TOBACCO USER [facility] Jun 07, 2006 09:21 [facility] Aug 25, 2005 11:01 AM CURRENT TOBACCO USER [facility] Aug 25, 2005 11:01 AM TOBACCO CONTEMPLATION STAGE [facility] Oct 25, 2004 10:18 AM CURRENT NON-TOBACC O USER-HX OF USE [facility] Oct 25, 2004 10:18 AM TOBACCO TERMINATION STAGE [facility] Aug 24, 2003 10:43 AM CURRENT NON-TOBACC O USER-HX OF USE [facility] Aug 24, 2003 10:43 AM TOBACCO TERMINATION STAGE [facility] Aug 05, 2002 09:55 AM CURRENT NON-TOBACC O USER-HX OF USE QUIT [facility] Apr 15, 2001 08:28 AM CURRENT NON-TOBACC O USER-HX OF USE quit in 1979 [facility] Advance Directives: All historical and current Section Date Range: From patient's date of to the date document was created. This section includes ALL of a patient's completed or amended CT Advance and Rescinded Directives. The entries below indicate that a directive exists for the patient, but an actual copy is not included with this document. The data comes from all CT facilities. Date Advance Directives Provider Source Oct 19, 2023 ADVANCE DIRECTIVE WANG MURILLO [facility] Dec 12, 2022 RESCINDED ADVANCE DIRECTIVE JITENDRA MEADOWS [facility] September 12, 2016 ADVANCE DIRECTIVE DISCUSSION YVETTE [facility]ADOWS [facility] Radiology Reports: +/- 30 days of [...] NM MYOCARDIAL P SPECT STRESS/REST-P: JESUS ABRAHAM [id number] -1935 M Exm Date: NOV 23, 2023@09:03 Req Phys: MEAGHAN QUINTEROS Loc: -PC TM-C SAME DAY CLINIC (Re Img Loc: -NUCLEAR MEDICINE Service: Unknown [facility] [address] [place] [address] (Case [id number] COMPLETE) NM MYOCARDIAL PERF SPECT STRESS/R(NM Detailed) CPT:04378 Reason for Study: CHEST PAIN, ASSESS SUSPECTED [...] 23, 2023 Date Verified: NOV 23, 2023 Head Of Art E-Sig:/ES/AGUSTO LIPSCOMB Report: PATIENT NAME: JESUS ABRAHAM CASE #: [id number], [id number], [id number], [id number] EXAMINATION: Rest/Lexiscan Stress Gated SPECT Myocardial Imaging [...] code: 1000. Dictated by Rik Dorantes MD (Doughnut Dough Mixer), Rodney Smith MD (Doughnut Dough Mixer) IAgusto, have reviewed the images and report and concur with these findings. Primary Interpreting Staff: AGUSTO LIPSCOMB, RADIOLOGIST (Head Of Art) Primary Interpreting Resident: RIK DORANTES MD, FRANCHISE SPECIALIST /AGUSTO SEN [facility] Nov 13, 2023 04:[address] HEAD W/O CONT: JESUS ABRAHAM [id number] -1935 M Exm Date: NOV 13, 2023@16:07 Req Phys: CYRUS EVANS Loc: [facility]-EMERGENCY DEPT 2ND SHIFT (R Img Loc: [facility]-CT IMAGING [facility] Service: Unknown [facility] [address] [place] [address] (Case [id number] COMPLETE) CT HEAD W/O CONT (CT Detailed) CPT:16352 Reason for Study: confusion Clinical History: Responsible Attending: cyrus evans Attending Contact Number: [phone] Resident Contact Number: Allergies listed in CPRS chart: Patient has answered NKA Creatinine: CREATININE 1.17 mg/dL 11/13/2023 14:20 /eGFR: STL EGFR (within one year). CREATININE 1.17 mg/dL (11/13/23 14:20) Wt: 189.3 lb [85.87 kg] (10/18/2023 10:32) History of: Renal failure, chronic or acute renal disease: NO Report Status: Verified Date Reported: NOV 13, 2023 Date Verified: NOV 13, 2023 Head Of Art E-Sig: Report: CT HEAD W/O CONT HISTORY: confusion COMPARISON: CT head 06/11/2019 TECHNIQUE: Contiguous axial CT images from the level of the skull base through the skull apex, performed at the local CT facility. 269 images were received by the CT National Teleradiology Program (NTP) for interpretation. RADIATION [...] clinical concern, consider MRI. READING PHYSICIAN: Anjum [id number] 11/13/2023 15:14 PDT [facility] National Teleradiology Program [phone] (For Medical Practitioner Use Only) Attention Patients / Veterans: If you have questions or concerns about these test results, please contact your ordering provider or primary care team. Primary Interpreting Staff: RADIOLOGY,OUTSIDE SERVICE, Staff Physician / RADIOLOGY,OUTSIDE SERVICE [facility] Nov 13, 2023 03:59 PM CHEST X-RAY, 2 VIEWS: JESUS ABRAHAM [id number] -1935 M Exm Date: NOV 13, 2023@15:59 Req Phys: CYRUS EVANS Loc: -EMERGENCY DEPT 2ND SHIFT (R Img Loc: -MAIN RADIOLOGY SUITE Service: [facility], [facility] [address] [place] [address] (Case [id number] COMPLETE) CHEST X-RAY, 2 VIEWS (RAD Detailed) CPT:95379 Reason for Study: chest pain Clinical History: Report Status: Verified Date Reported: NOV 13, 2023 Date Verified: NOV 13, 2023 Head Of Art E-Sig:/ES/AGUSTO LIPSCOMB Report: INDICATION: chest pain COMPARISON: None TECHNIQUE: Chest 2 views Impression: No large pleural effusion or sizable pneumothorax. No new focal consolidation. Unchanged cardiomediastinal silhouette. Primary Interpreting Staff: AGUSTO LIPSCOMB, RADIOLOGIST (Head Of Art) /AGUSTO HOOVER [facility] Pathology Reports: +/- 30 days [...] comes from all CT treatment facilities. Date/Time Pathology Report Provider Source Nov 13, 2023 06:10 PM LR MICROBIOLOGY RE PORT: Accession [UID]: [id number] [[id number]] Received: Nov 13, 2023@18:22 Collection sample: B [...] --=--=--=--=--=--=-- Performing Laboratory: Bacteriology Report Performed By: [facility] [address] [place] [address]# [id number] [address] [facility] [address] [place] [address] [facility] Nov 13, 2023 06:05 PM LR MICROBIOLOGY RE PORT: Accession [UID]: [id number] [[id number]] Received: Nov 13, 2023@18:23 Collection sample: B [...] --=--=--=--=--=--=-- Performing Laboratory: Bacteriology Report Performed By: HANNY BAEZ [address] [facility] CLIA# [id number] [address] [facility] [address] [place] [address] [facility]
--- OUTSIDE RECORDS SUMMARY | 2024-05-17 21:51 | XMS_ITS ---
VA HOSPITALIZATION [facility] Encounter Summary Created on: May 17, 2024 JESUS ABRAHAM : 1935 Sex: Male Author Name [facility] [place] [facility] [place] [facility] [place] Address [address] [place] [address] Care Team Providers Care Sports Medicine Masseur Name Role Phone MEAGHAN QUINTEROS Primary Care [...] PART B Aug 12, 2001 PART B [id number] [phone] JESUS ABRAHAM PATIENT MEDICARE (WNR) MEDICARE (M) PART A Aug 12, 2001 PART A [id number] TOBIDANAYJESUS BUTT PATIENT Selected Encounter This section includes the information on record at [place] for the Encounter. Date/Time Encounter Type Encounter Description Reason Pro vider Source Nov 13, 2023 09:08 PM Inpatient Visit HOSPITALIZATION ICD-10-CM R90.82 White matter disease, unspecified TWOA,MED IHE Encounter Template Text not used by [place] Assessments - Encounter Diagnoses This section includes the primary and secondary diagnoses documented for the Encounter. Date/Time Primary/Secondary Diagnosis Diagnosis Name Provider Source Nov 14, 2023 03:30 PM Diagnosis for Length of Stay Orthostatic hypotension [facility] Nov 14, 2023 03:30 PM SECONDARY Ataxia, unspecified [facility] Nov 14, 2023 03:30 PM SECONDARY Athscl heart disease of [place] coronary artery w/o ang pctrs [facility] Nov 14, 2023 03:30 PM SECONDARY Chest pain, unspecified [facility] Nov 14, 2023 03:30 PM SECONDARY Essential (primary) hypertension [facility] Nov 14, 2023 03:30 PM SECONDARY Presence of coronary angioplasty implant and graft [facility] Nov 14, 2023 03:30 PM SECONDARY Repeated falls [facility] Nov 14, 2023 03:30 PM SECONDARY Type 2 diabetes mellitus without complications [facility] Nov 14, 2023 03:30 PM SECONDARY Unilateral primary osteoarthritis, left knee [facility] Nov 14, 2023 03:30 PM SECONDARY Unspecified visual loss [facility] Nov 14, 2023 03:30 PM SECONDARY Vascular dementia, unsp severity, without beh/psych/mood/anx [facility] Nov 14, 2023 03:30 PM SECONDARY White matter disease, unspecified [facility] Plan of Treatment: Future Appointments (+ 6 months) and Future Tests (+/- 45 days) The Plan of Treatment section includes future care activities for the patient from all [facility]. This section includes future appointments and future orders which are active, pending or scheduled. Future Appointments This section includes appointments that were scheduled to occur 6 months from the date of the Encounter, up to a maximum of 20 appointments. The data comes from all [facility]. Appointment Date/Time Appointment Type Appointme nt Facility Name Nov 23, 2023 09:00 AM AMBULATORY - MEDICINE [facility] Nov 23, 2023 10:00 AM AMBULATORY - MEDICINE [facility] Nov 23, 2023 11:30 AM AMBULATORY - MEDICINE [facility] Dec 24, 2023 02:45 PM AMBULATORY - SURGERY [facility] Jan 01, 2024 02:00 PM AMBULATORY - REHAB MEDICIN E [facility] Feb 29, 2024 01:30 PM AMBULATORY - MEDICINE [facility] Mar 03, 2024 09:15 AM AMBULATORY - MEDICINE [facility] Mar 08, 2024 01:30 PM AMBULATORY - MEDICINE [facility] Mar 10, 2024 12:45 PM AMBULATORY - SURGERY [facility] Apr 16, 2024 11:00 AM AMBULATORY - REHAB MEDICIN E [facility] May 15, 2024 11:00 AM AMBULATORY - SURGERY [facility] Active, Pending, and Scheduled Orders This section includes a listing of several types of active, pending, and scheduled orders, including clinic medications orders, diagnostic test orders, procedure orders and consult orders; where the start date of the order is 45 days before the date of the Encounter or 45 days after the date of theEncounter. The data comes from all [place] treatment facilities. Test Date/Time Test Type Test Details Facility Name Nov 13, 2023 09:10 PM Laboratory - Chemi stry Order MRSA SURVL NARES DNA NARES WC [facility] Nov 21, 2023 12:00 AM Laboratory - Chemi stry Order HGA1C BLOOD SP [facility] Nov 21, 2023 12:00 AM Laboratory - Chemi stry Order VITAMIN D, 25-HYDROXY GOLD/RED SST SERUM SP [facility] Lab Results: +/- 30 days [...] Range Comment Nov 14, 2023 05:33 AM [facility] TSH W/ REFLEX FT4 (STL) Specimen Type: PLASMA No comment entered. Ordering Provider: STEVE DUNN Report Released Date/Time: Nov 14, 2023 04:23 AM Reporting Lab: [place] [address] [facility] [place] [address] Performing Lab: [address] [place] [address] TSH 3.546 u[IU]/mL 0.47-5 Nov 14, 2023 05:33 AM [facility] PHOSPHOROUS Specimen Type: PLASMA Comment: No hemolysis noted. Ordering Provider: STEVE DUNN Report Released Date/Time: Nov 14, 2023 04:23 AM Reporting Lab: [address] [address] Performing Lab: [address] [address] PHOSPHOROUS 2.9 mg/dL 2.3-4.7 Nov 14, 2023 05:33 AM [facility] MAGNESIUM Specimen Type: PLASMA Comment: No hemolysis noted. Ordering Provider: STEVE DUNN Report Released Date/Time: Nov 14, 2023 04:23 AM Reporting Lab: [address] [address] Performing Lab: [address] [address] MAGNESIUM 2.1 mg/dL 1.6-2.6 Nov 14, 2023 05:33 AM [facility] BASIC METABOLIC PANEL Specimen Type: PLASMA Comment: No hemolysis noted. Ordering Provider: STEVE DUNN Report Released Date/Time: Nov 14, 2023 04:23 AM Reporting Lab: [address] [address] Performing Lab: [address] [address] CREATININE 0.78 mg/dL 0.7-1.3 UREA NITROGEN 12.0 mg/dL 9.0-25.0 GLUCOSE 83 mg/dL 72-99 SODIUM 136 meq/L 136-145 POTASSIUM 4.4 meq/L 3.5-5 CHLORIDE 103 meq/L 98-107 CARBON DIOXIDE 26 meq/L 22-31 CALCIUM 8.8 mg/dL 8.4-10.4 EGFR (CKD-EPI 2020) 86.3 >60 Nov 14, 2023 05:33 AM [facility] CBC Specimen Type: BLOOD Comment: Manual diff performed on 11/13/23 Ordering Provider: STEVE DUNN Report Released Date/Time: Nov 14, 2023 04:23 AM Reporting Lab: [address] [address] Performing Lab: [address] [address] WBC 12.8 10*3/uL H 3.6-11.2 RBC 3.87 [...] 10*3/uL 0.00-0.20 Nov 14, 2023 01:30 AM [facility] TROPONIN I Specimen Type: PLASMA No comment entered. Ordering Provider: STEVE DUNN Report Released Date/Time: Nov 14, 2023 01:10 AM Reporting Lab: [address] [address] Performing Lab: [address] [address] TROPONIN I 0.044 ng/mL H 0-0.033 Nov 13, 2023 10:00 PM [facility] MRSA SURVL NARES DNA Specimen [...] epidemiological information for final interpretation. Ordering Provider: STEVE DUNN Report Released Date/Time: Nov 13, 2023 09:10 PM Reporting Lab: [address] [address] Performing Lab: [address] [address] MRSA SURVL NARES DNA Negative Negative Nov 13, 2023 07:10 PM [facility] TROPONIN I Specimen Type: PLASMA No comment entered. Ordering Provider: CYRUS EVANS Report Released Date/Time: Nov 13, 2023 06:56 PM Reporting Lab: [address] [address] Performing Lab: [address] [address] TROPONIN I 0.045 ng/mL H 0-0.033 Nov 13, 2023 06:20 PM [facility] BLOOD GAS PANEL ABG ([facility]) Specimen Type: VENOUS BLOOD Comment: Test Performed by: [id number] Meter #: [id number] Ordering Provider: CYRUS EVANS Report Released Date/Time: Nov 13, 2023 06:20 PM Reporting Lab: [address] [address] Performing Lab: [address] [address] GEM PH 7.38 7.31-7.41 GEM PCO2 52 [...] TEMP 37.0 Nov 13, 2023 06:15 PM [facility] COVID-19 DIAGNOSTIC (FLU/RSV)([facility]) Specimen Type: NASOPHARYNX Comment: Qualitative real-time [...] Nov 13, 2023 03:21 PM Reporting Lab: [address] [address] Performing Lab: [address] [address] INFLUENZA A Negative Negative INFLUENZA B Negative Negative COVID-19 ([facility]) Not Detected Not Detected RSV (Cepheid) NEGATIVE Negative Nov 13, 2023 06:00 PM [facility] PT/INR NEW ([facility]) Specimen Type: PLASMA No comment entered. Ordering Provider: CYRUS EVANS Report Released Date/Time: Nov 13, 2023 03:21 PM Reporting Lab: [address] [address] Performing Lab: [place] [address] [address] PROTIME 12.7 s H 9.4-12.5 INR VALUE 1.1 {INR} Nov 13, 2023 06:00 PM [facility] APTT Specimen Type: PLASMA No comment entered. Ordering Provider: CYRUS EVANS Report Released Date/Time: Nov 13, 2023 03:21 PM Reporting Lab: [place] [phone] Performing Lab: [place] [phone] APTT 33.7 s 26.7-39.9 Nov 13, 2023 04:59 PM [facility] URINALYSIS W/ CX REFLEX ([facility]) Specimen Type: URINE No comment entered. Ordering Provider: CYRUS EVANS Report Released Date/Time: Nov 13, 2023 03:12 PM Reporting Lab: [address] [address] Performing Lab: [address] [address] URINE COLOR Yellow Yellow U.BILIRUBIN Negative mg/dL [...] 1.005-1.02 9 Nov 13, 2023 02:20 PM [facility] TROPONIN I Specimen Type: PLASMA Comment: No hemolysis noted. Ordering Provider: CYRUS EVANS Report Released Date/Time: Nov 13, 2023 02:14 PM Reporting Lab: [facility] [address] [facility] [place] [address] Performing Lab: [address] [address] TROPONIN I 0.044 ng/mL H 0-0.033 Nov 13, 2023 02:20 PM [facility] COMPREHENSIVE METABOLIC PANEL Specimen Type: PLASMA Comment: No hemolysis noted. Ordering Provider: CYRUS EVANS Report Released Date/Time: Nov 13, 2023 02:14 PM Reporting Lab: [place] [address] [facility] [place] [address] Performing Lab: [address] [address] CREATININE 1.17 mg/dL 0.7-1.3 UREA NITROGEN 12.7 [...] 60.3 >60 Nov 13, 2023 02:20 PM [facility] CBC Specimen Type: BLOOD No comment entered. Ordering Provider: CYRUS EVANS Report Released Date/Time: Nov 13, 2023 02:14 PM Reporting Lab: [address] [address] Performing Lab: [address] [address] WBC 12.5 10*3/uL H 3.6-11.2 RBC 4.21 [...] Height Weight Body Mass Index Source Nov 13, 2023 11:20 PM 0 [facility] Nov 13, 2023 10:29 PM 3 [facility] Nov 13, 2023 09:10 PM 97 68 172/77 18 97 0 188.4 25 [facility] Nov 13, 2023 08:02 PM 71 164/84 18 [facility] Nov 13, 2023 02:07 PM 98.7 77 122/69 14 97 [facility] Social History: Smoking Status (Most current) and Tobacco Use (All prior to encounter date) This section includes the most current, and the historical, smoking and tobacco- related health factors from the [facility] where the Encounter took place. Current Smoking Status This section includes the most current smoking, or tobacco-related health factor, from the [place] facility where the Encounter took place. Date/Time Current Smoking Status Comment Dena sarkar Aug 04, 2022 11:30 AM VA-TOBACCO NEVER USED [facility] Tobacco Use [...] CENTER Jun 07, 2006 09:21 AM [facility] Aug 25, [...] Oct 19, 2023 ADVANCE DIRECTIVE WANG MURILLO [facility] Dec 12, 2022 RESCINDED ADVANCE DIRECTIVE JITENDRA MEADOWS [facility] September 12, 2016 ADVANCE DIRECTIVE DISCUSSION YVETTE MEADOWS [facility] Radiology Reports: +/- 30 days of [...] NM MYOCARDIAL P SPECT STRESS/REST-P: JESUS ABRAHAM [id number] -1935 M Exm Date: NOV 23, 2023@09:03 Req Phys: ALDAIRMEAGHANLian Agee Loc: [facility]- TM-C SAME DAY CLINIC (Re Img Loc: [facility]-NUCLEAR MEDICINE Service: Unknown [facility] [address] [place] [address] (Case [id number] COMPLETE) NM MYOCARDIAL PERF SPECT STRESS/R(NM Detailed) CPT:85224 Reason for Study: CHEST PAIN, ASSESS SUSPECTED [...] 23, 2023 Date Verified: NOV 23, 2023 Fusion Juncture Grinder E-Sig:/ES/AGUSTO GOVEA Report: PATIENT NAME: JESUS ABRAHAM CASE #: [id number], [id number], [id number] EXAMINATION: Rest/Lexiscan Stress Gated SPECT Myocardial Imaging [...] code: 1000. Dictated by Rik Brand MD (Plate Cleaner), Rodney Smith MD (Plate Cleaner) I, Agusto Govea, have reviewed the images and report and concur with these findings. Primary Interpreting Staff: AGUSTO GOVEA, RADIOLOGIST (Fusion Juncture Grinder) Primary Interpreting Resident: RIK BRAND MD, PROJECT MANAGER/DESIGN MANAGER /AGUSTO SEN [facility] Nov 13, 2023 04:[address] HEAD W/O CONT: JESUS ABRAHAM [id number] -1935 M Ex Date: NOV 13, 2023@16:07 Req Phys: CYRUS EVANS Loc: [facility]-EMERGENCY DEPT 2ND SHIFT (R Img Loc: [facility]-CT IMAGING [facility] Service: Unknown [facility], [facility] [address] [place] [address] (Case [id number] COMPLETE) CT HEAD W/O CONT (CT Detailed) CPT:03095 Reason for Study: confusion Clinical History: Responsible Attending: cyrus evans Attending Contact Number: [phone] Resident Contact Number: Allergies listed in CPRS chart: Patient has answered NKA Creatinine: CREATININE 1.17 mg/dL 11/13/2023 14:20 /eGFR: STL EGFR (within one year). CREATININE 1.17 mg/dL (11/13/23 14:20) Wt: 189.3 lb [85.87 kg] (10/18/2023 10:32) History of: Renal failure, chronic or acute renal disease: NO Report Status: Verified Date Reported: NOV 13, 2023 Date Verified: NOV 13, 2023 Fusion Juncture Grinder E-Sig: Report: CT HEAD W/O CONT HISTORY: [...] clinical concern, consider MRI. READING PHYSICIAN: Anjum [id number] 11/13/2023 15:14 PDT [facility] National Teleradiology Program [phone] (For Medical Practitioner Use Only) Attention Patients / Veterans: If you have questions or concerns about these test results, please contact your ordering provider or primary care team. Primary Interpreting Staff: RADIOLOGY,OUTSIDE SERVICE, Staff Physician / RADIOLOGY,OUTSIDE SERVICE [facility] Nov 13, 2023 03:59 PM CHEST X-RAY, 2 VIEWS: JESUS ABRAHAM [id number] -1935 M Ex Date: NOV 13, 2023@15:59 Req Phys: CYRUS EVANS Loc: [facility]-EMERGENCY DEPT 2ND SHIFT (R Img Loc: [facility]-MAIN RADIOLOGY SUITE Service: Unknown [facility] [address] [place] [address] (Case [id number] COMPLETE) CHEST X-RAY, 2 VIEWS (RAD Detailed) CPT:82111 Reason for Study: chest pain Clinical History: Report Status: Verified Date Reported: NOV 13, 2023 Date Verified: NOV 13, 2023 Fusion Juncture Grinder E-Sig:/ES/AGUSTO GOVEA Report: INDICATION: chest pain COMPARISON: None TECHNIQUE: Chest 2 views Impression: No large pleural effusion or sizable pneumothorax. No new focal consolidation. Unchanged cardiomediastinal silhouette. Primary Interpreting Staff: AGUSTO GOVEA, RADIOLOGIST ([place]) /AGUSTO [place] [facility] Pathology Reports: +/- 30 days of [...] comes from all [place] treatment facilities. Date/Time Pathology Report Provider Source Nov 13, 2023 06:10 PM LR MICROBIOLOGY RE PORT: Accession [UID]: [id number] [[id number]] Received: Nov 13, 2023@18:22 Collection sample: B [...] --=--=--=--=--=--=-- Performing Laboratory: Bacteriology Report Performed By: [facility] CLIA# [id number] [address] [id number] [address] [facility] Nov 13, 2023 06:05 PM LR MICROBIOLOGY RE PORT: Accession [UID]: [id number] [[id number]] Received: Nov 13, 2023@18:23 Collection sample: B [...] --=--=--=--=--=--=-- Performing Laboratory: Bacteriology Report Performed By: [facility] [address] [place] [address] CLIA# [id number] [address] [phone] [address] [facility] Encounter Notes: All associated encounter notes This section contains the clinical notes associated to the Encounter. Date/Time Encounter Note(s) Provider Source Nov 14, 2023 03:30 PM DISCHARGE SUMMARY: LOCAL TITLE: Discharge Summary STANDARD TITLE: DISCHARGE SUMMARY DICT DATE: NOV 14, 2023@16:34 ENTRY DATE: NOV 14, 2023@16:34:31 DICTATED BY: NANCY MALAGON ATTENDING: HUSSEIN HYMAN URGENCY: routine STATUS: COMPLETED DISCHARGE OBSERVATION MEDICINE ST Diagnoses: Other (specify below) Dizziness, chest pain Complications: None Comorbidities: Poor vision, coronary artery disease, type 2 diabetes, hypertension, osteoarthritis Reason for Observation Admission: Evaluation for dizziness with PT/OT, chest pain with TTE Outcome: Troponins initially slightly elevated but patient without chest pain, and EKG reassuring. TTE without acute concerns. PT/OT assessed patient and did not report any need for rehab or home health. CTH showed concern for small vessel disease. Dizziness and cognitive decline thought to be related to vascular dementia, no acute interventions or inpatient diagnostic studies indicated. DISCHARGE MEDICATIONS: TO HELP YOU UNDERSTAND YOUR DRUG LIST ACTIVE means that you are presently taking these meds PENDING means that the medications have just been renewed or just ordered. HOLD means that the medications are on your list but will not be sent to you unless you or your doctor wants them taken off hold. NON-VA means you are getting the medication from somewhere besides the [place]. Active Outpatient Medications (including Supplies): Active Outpatient [...] MOUTH ONCE A DAY 8 Total Medications - Please take only those medications on the above list. - At your next appointment, please remember to bring all of your medication bottles with you. Please include any vitamins, herbal supplements & over the counter medications. - If you have any further questions regarding your medications, please call your primary care clinic or if after hours, please call and ask automatic spooler operator to connect to Nurse Talk. NEW MEDICATIONS (and indications): None The following changes were made to the medications you were taking prior to this hospitalization: None These medications have been stopped during your hospitalization (and reason why): None At your next appointment, please remember to bring all of your medication bottles with you Medication Reconciliation: I have discussed active and pending medications with the patient and/or hourly caregiver. I have made changes as appropriate................. ..YES DISCHARGE DIETARY INSTRUCTIONS: Your current weight is: 188.4 lb [85.46 kg] (11/13/2023 21:10) No Dietary Instructions If you have questions, contact the dietitians at . DISCHARGE PHYSICAL ACTIVITY INSTRUCTIONS: No activity restrictions Tobacco Cessation Education/Counseling: The patient states he/she is not a tobacco user. WORSENING and/or DANGEROUS SYMPTOMS TO REPORT FOR: Acute Myocardial Infarction *Shortness of Breath *Pain in neck, shoulder, jaw *Cold, sweaty skin *Light headed/Dizzy *Nausea, vomiting In older adults the only presenting symtom may be 'shortness of breath'. Chest Pain is serious and potentially life threatening; immediately call 911 or present to the hospital Emergency Department nearest you. Contact your Primary Care Physician Sunday through Sunday 8:00a.m. - 4:00p.m. After normal business hours the [place] Telephone Care Program is available (Sunday through Sunday 4p.m. to 8a.m.; Weekends and Holidays) at [phone] ext. [phone]. DISCHARGE INSTRUCTIONAL MATERIALS Other (Specify below) None FUTURE APPOINTMENT(S): To reschedule [facility] appointments call and use extension below. Date/time Clinic Phone number 11/16/23 10:00 am HAL-PACT PHONE TEAM C6 RN [phone] 11/23/23 9:00 am HAL-NUCLEAR MED CARDIOLOG [phone] 11/23/23 10:00 am HAL-CARDIOLOGY STRESS [phone] 11/23/23 11:30 am HAL-PACT C6 PCP 12/24/23 2:45 pm HAL-OPHTH RETINA MON Follow-up with your Primary Care Physician: MEAGHAN QUINTEROS in 1-2 weeks *This listing may be incomplete. CONDITION OF PATIENT AT DISCHARGE: Fair PLACE OF DISPOSITION: Home OTHER (Include employment status): N/A NOTE: If you are having feelings of Depression or Emotional Distress, or feel you just need to talk with someone, please call 1-6-5 PRESS 1. Discussed with family/spouse PRINCIPAL DIAGNOSIS: Frequent falls SECONDARY DIAGNOSES: postural hypotension Significant Medical Problems PRESENT on Admission: diabetes Significant Medical Problems NOT PRESENT on Admission: None OPERATIVE/INVASIVE PROCEDURES: None ATTENDING PHYSICIAN: Hussein Hyman M.D. BRIEF HISTORY AND ESSENTIAL PHYSICAL FINDINGS: see above HOSPITAL COURSE: see above CONDITION ON DISCHARGE: Stable FOLLOW-UP: With PCP in 1 -2 weeks NON-VA FOLLOW-UP CARE: NA DISCHARGE MEDICATIONS FROM DISCHARGE INSTRUCTIONS: see above ALLERGIES OR DRUG SENSITIVITIES: NKDA DIET: Diabetic prudent ACTIVITY: as tolerated INFORMATION REGARDING CONDITION OR PROPER HOME AND/OR WOUND CARE: N/A RETURN TO WORK: N/A DISPOSITION: [X] Discharge home [ ] Discharge to home hospice [ ] Transfer to prison [ ] Transfer to rehab 1 [ ] Transfer to psychiatry [ ] Transfer to Spinal cord injury unit [ ] Transfer to hospice [ ] Transfer to outside facility: [ ] Transfer to outside facility under hospice: [ ] : autopsy approved by Next of Kin [ ] : autopsy not approved by Next of Kin [ ] : autopsy resulting from custodial engineer's case [ ] Other: COMPETENCY: [X] The patient is competent in the [place] sense of the word. [ ] The patient is not competent in the [place] sense of the word. TOTAL TIME SPENT FOR FINAL HOSPITAL DISCHARGE: 30 minutes. Verified By MRT/ML /manuel/ HUSSEIN HYMAN MD PhD STAFF PHYSICIAN Signed: 11/16/2023 12:51 for FARA MALAGON M.D. RESIDENT PHYSICIAN /manuel/ HUSSEIN HYMAN MD PhD STAFF PHYSICIAN Cosigned: 11/16/2023 12:51 HUSSEIN HYMAN [facility] Nov 14, 2023 03:26 PM NURSING NOTE: LOCAL TITLE: [facility] NSG IV INSERTION AND MAINTENANCE STANDARD TITLE: NURSING NOTE DATE OF NOTE: NOV 14, 2023@15:26 ENTRY DATE: NOV 14, 2023@15:26:37 AUTHOR: SANDY JC EXP COSIGNER: URGENCY: STATUS: COMPLETED Version 2.2 Charting in accordance with [place] APPROVED [place] STANDARD (VTAES) ACUTE INPATIENT/REHABILITATION NURSING ADMISSION SCREENING, ASSESSMENT, AND STANDARDS OF CARE ======== IV Line Insertion and Maintenance ======== ======== Peripheral IV ======== Line #1: Discontinue: Location: Left, Forearm Date/Time: Nov Reason for discontinuation: Therapy complete /es/ JOE BLAKE,RN REGISTERED NURSE Signed: 11/14/2023 15:29 SANDY JC [facility] Nov 14, 2023 03:00 PM NURSING TRANSFER SUMMARIZATION DISCHARGE NOTE: LOCAL TITLE: NIK DISCHARGE/TRANSFER SUMMARY ST STANDARD TITLE: NURSING TRANSFER SUMMARIZATION DISCHARGE NOTE DATE OF NOTE: NOV 14, 2023@15:00 ENTRY DATE: NOV 14, 2023@15:00:33 AUTHOR: SANDY JC EXP COSIGNER: URGENCY: STATUS: COMPLETED DISCHARGE - TRANSFER SUMMARY Action: Discharge Diagnosis: Last Admission: 11/13/23 9:08:29 pm Admit Dx: FAILURE TO THRIVE Age: 88 Allergies: Patient has answered NKA Patient Condition: Stable Vital Signs: Temperature: 98.4 F [36.9 C] (11/14/2023 08:10) Pulse: 70 (11/14/2023 08:10) Respiration: 18 (11/14/2023 08:10) Blood Pressure: 119/62 (11/14/2023 08:10) Pain: 0 (11/14/2023 09:15) Fall Risk Assessment Score: 60 Fall Risk Level: High Risk === SUICIDE SCREEN === Result of C-SSRS screener done was NEGATIVE. C-SSRS Screen is Negative Isolation: No Precautions: Fall Orientation: x3 Hygiene: Self Care Nutrition: Regular diet Special needs: Assistance: Independent Bowel/Bladder: Date of last bowel movement: Nov Defecation: Normal Able to void: YES Continent: YES Catheter: No Wound / Skin Condition: SKIN REINSPECTION/REASSESSMENT SKIN INSPECTION: Skin Color: Usual for ethnicity Skin Temperature: Warm Skin Moisture: Normal Skin Turgor: Elastic (normal/immediate) Kamla Skin Assessment: The patient's Kamla Scale Score is 21. The patient is considered not at risk for development of pressure ulcers/injuries. Sensory perception -- ability to respond meaningfully to pressure-related discomfort No impairment. Moisture -- degree to which skin is exposed to moisture Rarely moist. Activity -- ability to change and control body position Walks frequently. Mobility -- ability to change and control body position No limitation. Nutrition -- usual food intake patterns Adequate. Friction and shear Potential problem. INTERVENTIONS: No change in previous interventions as listed below Pressure Ulcer-Education 11/13/2023 Educate Importance Of Changing Position Pressure Ulcer-Moisture 11/13/2023 Instruct Pt/Family To Request Assistance Maintain Clean Dry Skin Pressure Ulcer-Nutrition 11/13/2023 Monitor Fluid/Food Intake Provide/Encourage Oral Care As Needed Pressure Ulcer-Pressure Reducing 11/13/2023 Frequent Position Changes Pressure Ulcer-Remobilize 11/13/2023 Encourage Activity As Tolerated RISK FACTORS THAT INCREASE RISK FOR DEVELOPING PRESSURE INJURIES: The patient/resident has the following: Age over 75 Known vascular surgery or vascular disease Localized abnormality: Bruising: Location(s): [facility] STANDARD OF CARE / PRACTICE IMPLEMENTED: Indicate status at Discharge/Transfer: Flu Shot Given: No Patient received flu vaccine prior to admission Pneumococcal Shot Given: No Patient received Pneumococcal vaccine prior to admission MRSA Discharge Swab Done: No Reason: done on admission Discharged/Transfered to: Own home without home care services Accompanied by (Name & Relationship): grandson Next of Kin notified: YES Discharge/Transfer Mode: Ambulatory Discharged/Transferred with: Written Discharge Instructions Clothing / Valuables returned: Yes Describe: jeans, socks, shoes, shirt, belt, hat, wallet. $80. glasses Prosthetics with patient: Dentures/Partials with patient: None Glasses with patient: YES Other: NA Printed MD Instruction sheet with medication list reviewed and given to the patient/caregiver. Patient/Caregiver verifies medication list is complete and accurate. Patient/Caregiver appeared ready for instruction (good eye contact, appropriate questions, active participation, etc) Person(s) who received education: Patient Family Member grandson Education Topic/Teaching Needs: Disease/Condition Diet/Nutrition Follow-up Instructions Methods used Included: A copy of the Discharge Instructions Health Summary given to patient/caregiver and signed by patient/guardian. Patient's medications were reviewed and reconciled by discharge team. Teaching outcomes: Good level of understanding /es/ JOE BLAKE,RN REGISTERED NURSE Signed: 11/14/2023 15:25 SANDY JC [facility] Nov 14, 2023 02:40 PM PHYSICIAN EDUCATION DISCHARGE NOTE: LOCAL TITLE: DISCHARGE INSTRUCTIONS [facility] STANDARD TITLE: PHYSICIAN EDUCATION DISCHARGE NOTE DATE OF NOTE: NOV 14, 2023@14:40 ENTRY DATE: NOV 14, 2023@14:40:11 AUTHOR: NANCY MALAGON COSIGNER: HUSSEIN HYMAN URGENCY: STATUS: COMPLETED >>>>>>>>>>>>>>>>>>>>>>>>>>>> >>>>>>>>>>>>>>>>>>>>>>>>>>>> >>>>>>>>>>>>>> <<<<<<<<<<<<<<<<<<<<<<<<<<<< <<<<<<<<<<<<<<<<<<<<<<<<<<<< <<<<<<<<<<<<<< >>>>>>>>>>>>>>>>>>>>>>>>>>>> >>>>>>>>>>>>>>>>>>>>>>>>>>>> >>>>>>>>>>>>>> MEDICATIONS THAT WERE CHANGED: None MEDICATIONS THAT WERE STOPPED (AND REASON FOR STOPPING): None NEW MEDICATIONS WITH INSTRUCTIONS: None DATE OF ADMISSION: Nov 21:08 DATE OF DISCHARGE: Nov REASON(S) FOR BEING IN THE HOSPITAL: You were admitted for dizzines and chest pain. Your heart enzymes were slightly elevated, but an imaging study of your heart (echo) was unremarkable, and your heart rhythm was normal, so there was low concern for a heart problem. For your dizziness, the physical therapists assessed you and felt that there were no changes you need to make in your daily life. YOUR OUTPATIENT CARE TEAM: Team Information Primary Care Team: [facility]-PACT C6 PCP *WH* PC Provider: MEAGHAN QUINTEROS Position: PHYSICIAN FUTURE APPOINTMENTS: 11/23/2023 09:00 [facility]-NUCLEAR MED CARDIOLOGY INPATIENT APPOINTMENT 11/23/2023 10:00 HAL-CARDIOLOGY STRESS INPATIENT APPOINTMENT 11/23/2023 11:30 HAL-PACT C6 PCP INPATIENT APPOINTMENT 12/24/2023 14:45 [facility]-MAREK WORLEY MON 1 INPATIENT APPOINTMENT YOUR KNOWN ALLERGIES: Patient has answered NKA CALL YOUR DOCTOR IF YOU HAVE ANY OF THESE PROBLEMS: Cardiovascular Disease (heart problems): Feeling of pressure or pain to the chest, back, jaw, shoulder, or arm, Chest pain not relieved by using nitroglycerin tablets PHYSICAL ACTIVITY: Activity as tolerated DIET: TOBACCO & ALCOHOL: Patient offered and declined FDA-approved tobacco cessation medication management at this time. Encouraged to contact Primary Care team about nicotine replacement and/or medication should patient decide to seek this treatment in the future. Patient offered and declined FDA-approved medication(s) for alcohol/drug disorder at this time. DISCHARGE INSTRUCTIONAL MATERIALS: CONDITION OF PATIENT AT DISCHARGE: stable DISCHARGE DESTINATION: home NOTE: If you are having feelings of Depression or Emotional Distress, or feel you just need to talk with someone, please call [phone]), [facility] - Press 1. COPY OF DISCHARGE INSTRUCTIONS: The patient/family understands and will be provided a copy of these discharge instructions. DISCHARGE MEDICATION LIST: Active Outpatient Medications (including Supplies): Active Outpatient [...] MOUTH ONCE A DAY 8 Total Medications Active Remote Medications: No Active Remote Medications for this patient /manuel/ FARA MALAGON M.D. RESIDENT PHYSICIAN Signed: 11/14/2023 14:42 /manuel/ HUSSEIN HYMAN MD PhD STAFF PHYSICIAN Cosigned: 11/14/2023 14:57 NANCY MALAGON [facility] Nov 14, 2023 12:23 PM NUTRITION DIETETICS E & M NOTE: LOCAL TITLE: NUTRITION ASSESSMENT ST STANDARD TITLE: NUTRITION DIETETICS E & M NOTE DATE OF NOTE: NOV 14, 2023@12:23 ENTRY DATE: NOV 14, 2023@12:24:03 AUTHOR: CLARE,RAHAT N EXP COSIGNER: URGENCY: STATUS: COMPLETED Nutrition Assessment SGA (detailed) SUBJECTIVE GLOBAL ASSESSMENT: WEIGHT HISTORY: 1 Weight loss/gain however not significant APPETITE INTAKE: 0 Appetite/intake are adequate 0 Nutrition needs are being met by diet alone GASTROINTESTINAL SYMPTOMS: 0 No Chewing Issues 0 No swallowing issues 0 No nausea/vomiting issues 0 No diarrhea issues FUNCTIONAL CAPACITY: 0 Functional capacity does not interfere Nutrition Status Note: Ambulatory (i.e. capable of only activities of daily living) METABOLIC STRESS: 2 Pt with significant metabolic stress -Moderate increase activity i.e., initiation of daily PT therapy, Stage II-III wounds, mild infection, extended surgical procedure, CHF, mild exacerbation of chronic disease -High high-intensity physical activity, major surgery, acute pancreatitis, SIRS, vent dependent stressed, wound Stage IV PHYSICAL NUTRITION ASSESSMENT: 2 Pt with signs of fat and/or muscle loss or abnormal fluid status NUTRITIONAL RISK: Patient's total compiled SGA rating is 1-5 indicating predicted nutrition problem and no further nutrition assessment indicated unless and otherwise indicated based on clinical judgement. NUTRITION ASSESSMENT CLIENT HISTORY: 88 year old MALE admitted for FTT Patient medical health history: CAD, DM, HTN Food and Nutrition related history: Diet Order: REGULAR (11/13/23) Food and Fluid Intake: [place] reports that he lives at an assisted living home with his . [place] was concerned about his during encounter and repeatedly discussed his need to get back home to be with her for an upcoming procedure she has scheduled. Reports that he typically has a good appetite. States that he is not a big eater typically but that he does consume the 3 meals that are provided each day at his assisted living facility. States his appetite has been poor since yesterday, believes it due to not being home with his . Documented intake not yet available for this admission. Medications and Herbal Supplements: Reviewed Anthropometric Measurements: Ht: 73 in [185.4 cm] (05/18/2023 10:28) Wt: 188.4 lb [85.46 kg] (11/13/2023 21:10) BMI: 24.9 Weight History/Significant changes: -6 lbs. (3%) in 6 months, not clinically significant Patient Weight History - Last Four 1. 188.4 lbs. / 85.5 kg. on NOV 13, 2023@21:10 2. 189.3 lbs. / 85.9 kg. on OCT 18, 2023@10:32:02 3. 190.7 lbs. / 86.5 kg. on OCTOBER 12, 2023@10:26:19 4. 194.0 lbs. / 88.0 kg. on MAY 18, 2023@10:28:12 LABS: Reviewed Nutrition Focused Physical Findings: Denies chewing or swallowing issues Denies N/V Low vision Thin male with thin extremities, age related fat store loss and muscle wasting Nutrition Prescription: Estimated energy needs:1988-3296 kcals (25-28kcals/kg ABW) Estimated protein needs: 85g (1g/kg ABW) Estimated fluid needs: 2125-2380ml (ml/kcal) NUTRITION DIAGNOSIS: No nutrition diagnosis at this time NUTRITION INTERVENTIONS: DIET RECOMMENDATIONS General healthful diet: regular Content related nutrition education: Encouraged good intake of meals over course of admission. Vet verbalized understanding. NUTRITION MONITORING AND EVALUATION Total energy estimated intake in 24 hours: to consume >75% of meals over course of admission. Follow up date: Nov /manuel/ RAHAT SPARKS RD Clinical Dietitian Signed: 11/14/2023 13:36 RAHAT SPARKS [facility] Nov 14, 2023 11:43 AM NURSING INPATIENT NOTE: LOCAL TITLE: [facility] NURSING FREQUENT DOCUMENTATION STANDARD TITLE: NURSING INPATIENT NOTE DATE OF NOTE: NOV 14, 2023@11:43 ENTRY DATE: NOV 14, 2023@11:43:54 AUTHOR: DORINA GORDON EXP COSIGNER: URGENCY: STATUS: COMPLETED Version 2.4 Charting in accordance with [place] AP[place] STANDARD (VTAES) ACUTE INPATIENT/REHABILITATION NURSING ADMISSION SCREENING, ASSESSMENT, AND STANDARDS OF CARE ====== ACTIVITIES OF DAILY LIVING ====== Hygiene ADLs: Dressing: Upper Body: Independent Lower Body: Independent Eating: Independent Foot Care: Inspection Hand Hygiene: Performed post toileting Performed pre meals/snacks Oral Care: Non-ventilator patient: Patient teeth brushed: Independently The [place] was educated that poor oral hygiene increases the risk of hospital acquired pneumonia and dental problems like gingivitis and tooth decay. was educated using their preferred method and verbalized understanding. Pericare: Soap and water Independent Personal Care: Independent Toileting: Independent ======= ACTIVITY/MOBILIZATION ======= Mobility Status: Independent: Able to stand and step without staff assistance Steady standing balance Gait: [facility] - Highest Level of Mobility achieved this shift: 4 - Transferred to chair/commode ====== ENVIRONMENTAL SAFETY MANAGEMENT ====== Implemented safety standards of care: -[place] to unit & environment -Adequate room lighting -Bed in low and locked position -Call light within reach -Personal items within reach -Traffic path in room free of clutter -Non-slip footwear -Upper/half length side rails up for bed mobility -Sensory aids within reach -Encourage patient to utilize sensory support ====== GASTROINTESTINAL ====== Elimination: Continent ====== GENITOURINARY ====== Elimination: Continent Color/Characteristic: Yellow ======= ORAL INTAKE (PERCENTAGE OF MEAL EATEN) ======= Breakfast: 76% - 100% Lunch: 51% - 75% /es/ SHARI [employer]RANA [employer] [place] Signed: 11/14/2023 11:45 DORINA GORDON [facility] Nov 14, 2023 10:45 AM NURSING INPATIENT NOTE: LOCAL TITLE: VAAES ACUTE INPATIENT NSG SHIFT ASSESSMENT STANDARD TITLE: NURSING INPATIENT NOTE DATE OF NOTE: NOV 14, 2023@10:45 ENTRY DATE: NOV 14, 2023@13:41 AUTHOR: HOSEA,MIKAELLA EXP COSIGNER: URGENCY: STATUS: COMPLETED Version 2.2 Charting in accordance with [place] STANDARD (VAAES) ACUTE INPATIENT/REHABILITATION NURSING ADMISSION SCREENING, ASSESSMENT, AND STANDARDS OF CARE ====== ASSESSMENT ====== ====== HANDOFF ====== Bedside report and handoff completed Safety check completed ====== PAIN ASSESSMENT ====== Patient's acceptable pain goal: 0 No pain Are you currently experiencing pain? No: Pain Score: 0 ====== MORALES FALL SCALE & TIPS PROGRAM ====== Morales Fall Scale: The Morales Fall scale was performed and score was 60. This is indicative of high risk for falls. History of falling: immediate or within 3 months? Yes Secondary diagnosis: Yes Ambulatory aid: None/bedrest/nurse assist Intravenous therapy/Heparin lock: Yes Gait/Transferring: Normal/bed rest/immobile Mental Status: Oriented to own ability/knows own limitations Fall Tailoring Interventions for Patient Safety (TIPS) Fall TIPS initiated with patient: Yes Interventions: Communicate recent fall or risk of harm Assistance out of bed: Call for assistance before getting out of bed Fall TIPS reviewed with patient: Yes Interventions: Communicate recent fall or risk of harm Assistance out of bed: Call for assistance before getting out of bed Comment: Pt states he can get up on his own and does not want the bed alarm on. ====== ENVIRONMENTAL SAFETY MANAGEMENT ====== Implemented safety standards of care: -[place] to unit & environment -Adequate room lighting -Bed in low and locked position -Call light within reach -Personal items within reach -Traffic path in room free of clutter -Non-slip footwear -Upper/half length side rails up for bed mobility -Sensory aids within reach -Encourage patient to utilize sensory support Additional safety measures: Close to nurses station Increased frequency of rounding ====== NEUROLOGICAL ====== Neurological Orientation: Oriented x4 Level of Consciousness (AVPU): Alert = Appears aware of and responsive to the environment on their own. Follows commands, opens eyes spontaneously, and tracks objects. Affect/behavior: Cooperative Calm Steele Agitation Sedation Scale (RASS): 0 Alert and calm ====== NEUROMUSCULAR/NEUROVASCULAR EXTREMITIES ASSESSMENT ====== Strength: Clammer Bilateral: Strong Upper Extremity Bilateral: Full strength Lower Extremity Bilateral: Full strength Sensation: Upper Extremity Sensation Bilateral: Intact Lower Extremity Sensation Bilateral: Intact Temperature: Upper Extremity Temperature Bilateral: Warm Lower Extremity Temperature Bilateral: Warm ====== CARDIOVASCULAR ====== Heart Sounds: Normal (S1S2) Heart Rate/Rhythm (without labor conciliator): Regular Cardiac Rhythm Analysis: Normal Sinus Rhythm Heart Block: First Degree Telemetry Transmitter Pack #: 56 Capillary Refill: All 4 extremities, less than or equal to 3 seconds. Peripheral Pulses: All 4 extremities, 3+ normal. Edema: None Cardiovascular - Embolism Prevention: Comment: Lovenox - ref ====== RESPIRATORY ====== Respirations: Unlabored Pattern: Regular Breath Sounds Auscultated: Anterior and posterior Left Upper Lobe: Clear Right Upper Lobe: Clear Right Middle Lobe: Clear Left Lower Lobe: Clear Right Lower Lobe: Clear ====== GASTROINTESTINAL ====== Last bowel movement: 11/14/2023 Bowel movement reported by patient-unwitnessed Elimination: Continent Abdominal Description: Rounded Palpation: Soft, Non-tender Bowel Sounds: RUQ: Active LUQ: Active RLQ: Active LLQ: Active ====== GENITOURINARY ====== Elimination: Continent ===== INTEGUMENTARY/SKIN/WOUND - (INCLUDING KAMLA) SEE NOTE: VAAES SKIN INPECTION/ASSESSMENT ===== ====== ACTIVITIES OF DAILY LIVING ====== Hygiene ADLs: Comment: Pt independent w/ ADLs ====== MOBILITY ====== Mobility Status: Independent: Able to stand and step without staff assistance Steady standing balance Gait: Steady ====== IV LINES ====== Peripheral IV: Present on admission: Line #1: Location: Left, Forearm Gauge: 20 ====== PSYCHOSOCIAL ====== Type of Emotional Support Provided: 1:1 discussion, Hospitalization discussion, Treatment discussion, Ventilation of feelings elis /manuel/ JOE BLAKE,RN REGISTERED NURSE Signed: 11/14/2023 13:48 SANDY JC [facility] Nov 14, 2023 09:20 AM NURSING NOTE: LOCAL TITLE: [facility] SKIN INSPECTION/ASSESSMENT STANDARD TITLE: NURSING NOTE DATE OF NOTE: NOV 14, 2023@09:20 ENTRY DATE: NOV 14, 2023@13:48:40 AUTHOR: SANDY JC EXP COSIGNER: URGENCY: STATUS: COMPLETED SKIN REINSPECTION/REASSESSMENT SKIN INSPECTION: Skin Color: Usual for ethnicity Skin Temperature: Warm Skin Moisture: Normal Skin Turgor: Elastic (normal/immediate) Kamla Skin Assessment: The patient's Kamla Scale Score is 21. The patient is considered not at risk for development of pressure ulcers/injuries. Sensory perception -- ability to respond meaningfully to pressure-related discomfort No impairment. Moisture -- degree to which skin is exposed to moisture Rarely moist. Activity -- ability to change and control body position Walks frequently. Mobility -- ability to change and control body position No limitation. Nutrition -- usual food intake patterns Adequate. Friction and shear Potential problem. INTERVENTIONS: No change in previous interventions as listed below Pressure Ulcer-Education 11/13/2023 Educate Importance Of Changing Position Pressure Ulcer-Moisture 11/13/2023 Instruct Pt/Family To Request Assistance Maintain Clean Dry Skin Pressure Ulcer-Nutrition 11/13/2023 Monitor Fluid/Food Intake Provide/Encourage Oral Care As Needed Pressure Ulcer-Pressure Reducing 11/13/2023 Frequent Position Changes Pressure Ulcer-Remobilize 11/13/2023 Encourage Activity As Tolerated RISK FACTORS THAT INCREASE RISK FOR DEVELOPING PRESSURE INJURIES: The patient/resident has the following: Age over 75 Known vascular surgery or vascular disease Device(s): (nasogastric tubes, oxygen tubing, urinary catheters, cell phone etc.) Comment: tele Localized abnormality: Bruising: Location(s): [facility] /manuel/ JOE BLAKE,RN REGISTERED NURSE Signed: 11/14/2023 13:51 SANDY JC [facility] Nov 14, 2023 09:10 AM CARDIOLOGY NOTE: LOCAL TITLE: CARDIOLOGY TELEMETRY STL STANDARD TITLE: CARDIOLOGY NOTE DATE OF NOTE: NOV 14, 2023@09:10 ENTRY DATE: NOV 14, 2023@09:10:30 AUTHOR: MICAH CHRISTY EXP COSIGNER: URGENCY: STATUS: COMPLETED CARDIOLOGY TELEMETRY STL Has ADDENDA Telemetry reviewed: Sinus Rhythm 1??AVB, IVCD, PACs 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 RN was notified. 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 Nov 14, 2023 01:31 AM NURSING INPATIENT NOTE: LOCAL T[facility] NURSING FREQUENT DOCUMENTATION STANDARD TITLE: NURSING INPATIENT NOTE DATE OF NOTE: NOV 14, 2023@01:31 ENTRY DATE: NOV 14, 2023@01:31:14 AUTHOR: HANNAH PHAM COSIGNER: URGENCY: STATUS: COMPLETED Version 2.4 Charting in accordance with [place] STANDARD (VTAES) ACUTE INPATIENT/REHABILITATION NURSING ADMISSION SCREENING, ASSESSMENT, AND STANDARDS OF CARE ====== ACTIVITIES OF DAILY LIVING ====== Hygiene ADLs: Dressing: Upper Body: Independent Lower Body: Independent Eating: Independent Foot Care: Inspection Hand Hygiene: Performed post toileting Performed pre meals/snacks Oral Care: Non-ventilator patient: Patient teeth brushed: Independently The was educated that poor oral hygiene increases the risk of hospital acquired pneumonia and dental problems like gingivitis and tooth decay. was educated using their preferred method and verbalized understanding. Pericare: Soap and water Independent Personal Care: Independent Toileting: Independent ======= ACTIVITY/MOBILIZATION ======= Mobility Status: Independent: Able to stand and step without staff assistance Steady standing balance Gait: Steady [facility] - Highest Level of Mobility achieved this shift: 6 - Walked 10 steps or more (walked to restroom) ====== ENVIRONMENTAL SAFETY MANAGEMENT ====== Implemented safety standards of care: -[place] to unit & environment -Adequate room lighting -Bed in low and locked position -Call light within reach -Personal items within reach -Traffic path in room free of clutter -Non-slip footwear -Upper/half length side rails up for bed mobility -Sensory aids within reach -Encourage patient to utilize sensory support /es/ HANNAH PHAM WAXED BAG MACHINE OPERATOR Signed: 11/14/2023 01:32 HANNAH PHAM [facility] Nov 14, 2023 01:18 AM INTERNAL MEDICINE H & P NOTE: LOCAL TITLE: MEDICINE HISTORY AND PHYSICAL STL STANDARD TITLE: INTERNAL MEDICINE H & P NOTE DATE OF NOTE: NOV 14, 2023@01:18 ENTRY DATE: NOV 14, 2023@01:18:16 AUTHOR: STEVE DUNN COSIGNER: HUSSEIN HYMAN URGENCY: STATUS: COMPLETED MEDICINE HISTORY AND PHYSICAL STL Has ADDENDA NOV 14, 2023 Medicine History and Physical CC: HPI:87 year old MALE with a PMHx of 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 Patient experiencing increased dizziness and occasional chest pain in the last few days. Granddaughter contacted PCP who urged them to be evaluated in the ED. Patient seen in OSH few days ago and caridac workup negative howeever per notes from [facility] requesting echocardiogram be completed. Given consistent symptoms after OSH ED visit, PCP urged rajinderugher to bring patient to [facility] for further evaluation. On exam difficult to obtain history directly from patient. Luis mentions increased dizziness in the last month or so howeever unable to tel me if it associated with a certain time or task. He takes meclizine for it and it does help him. He does mention increased unsteadiness when he gets out of bed in the morning however unable to tell me if this persists throughout the day. Chest pain is also occasional per patient however unable to describe exaclty when it does occur. Denies SOB, N/V, fevers/chill, or abdominal pain. Eating and drinking okay. ED workup significant for mildy elevated WBC to 12.5 on CBC and Hgb to 12.7. PLT elevated to 457. CMP with Co2 at 21. UA WNL. Covid/Flu negative. Trop 0.045-->0.044. CT head showed severe periventricular white matter disease. Admitted to medicine for dizziness and chest pain Outpatient Medications: Active Outpatient Medications (including Supplies): Active Outpatient [...] MOUTH ONCE A DAY 8 Total Medications Allergies/Adverse Drug Reactions: Patient has answered NKA Past Medical/Surgical History: 1) Coronary artery disease (SNOMED CT 13521924) 2) Hyperlipidaemia (SNOMED CT 32581951) 3) Allergic rhinitis * (ICD-9-CM 477.9) 4) Carcinoma, Basal Cell 5) Osteoarthritis of knee (SNOMED CT 910886351) 6) Age related macular degeneration (SNOMED CT 568054878) 7) Colonic Polyps 8) Diabetes Mellitus without mention of Complication, type II or unspecified type, 9) Benign essential hypertension (SNOMED CT 1083552) 10) Pain in joint involving shoulder region [...] 780.79) 19) History/Skin/CA 20) Dermatitis (SNOMED CT 702263378) 21) Dry skin (SNOMED CT 35062218) 22) Chest pain 23) Exudative age-related macular degeneration 24) Hyperlipidemia 25) Diabetes mellitus 26) Insomnia 27) Osteoarthritis of knee Social History: denies smoking, alc use, or drug use Family History: no pertient family hx ROS: General: Denies Unintentional Weight loss, Fever, Chills Eyes: Denies Blurry vision, decreased vision, acute loss of vision ENT: Denies Nasal Congestion, sore throat Heart: Denies Chest pain, JERARDO, LE Edema, Palpitations Lungs: Denies SOB, Wheezing, Cough GI: Denies Nausea, vomiting, abdominal pain, hematochezia, melena Hem/Onc: Denies easy bruising, easy bleeding, lymphadenopathy Neuro: Denies Gee, Dizziness Skin: Denies Rash, itching Psych: Denies anxiety, depression Objective: VS: BP: P: R: WT: T: HT: 24.9 General: Pleasant NAD, AAO x 3 HEENT: AT, NC, PERRL, MMM, no oral pharyngeal erythema or exudate, poor dentition Neck: Supple, No CAD, No JVD Heart: RRR, No mgr Lungs: Clear, no wrr Abdomen: NT/ND, BS normoactive Vascular: 2/4 radial and dorsalis pedis pulses Extremities: No LE Edema, warm hands and feet Neuro: CN 2-12 GI, no focal deficits Skin: No abrasions, ulcers or ecchymosis Notable Laboratory Findings: WBC 12.5 H 10*3/uL 11/13/2023 14:20 RBC 4.21 10*6/uL 11/13/2023 14:20 HGB 12.7 L g/dL 11/13/2023 14:20 HCT 37.7 L % 11/13/2023 14:20 MCV 89.5 fL 11/13/2023 14:20 MCH 30.2 pg 11/13/2023 14:20 MCHC 33.7 g/dL 11/13/2023 14:20 RDW 13.5 % 11/13/2023 14:20 PLT 457 H 10*3/uL 11/13/2023 14:20 MPV 9.0 fL 11/13/2023 14:20 NEUTROPHILS, AUTO % 59 % 03/01/2022 12:23 LYMPHOCYTES, AUTO % 23 % 03/01/2022 12:23 MONOCYTES, AUTO % 17 % 03/01/2022 12:23 EOSINOPHILS, AUTO % 0 % 03/01/2022 12:23 BASOPHILS, AUTO % 0 % 03/01/2022 12:23 NEUTROPHILS, ABSOLUTE 5.58 10*3/uL 03/01/2022 12:23 LYMPHOCYTES, ABSOLUTE 2.21 10*3/uL 03/01/2022 12:23 MONOCYTES, ABSOLUTE 1.65 H 10*3/uL 03/01/2022 12:23 EOSINOPHILS, ABSOLUTE 0.01 10*3/uL 03/01/2022 12:23 BASOPHILS, ABSOLUTE 0.04 10*3/uL 03/01/2022 12:23 NEUTROPHILS 72.2 % 11/13/2023 14:20 LYMPHOCYTES 15.6 % 11/13/2023 14:20 MONOCYTES 8.7 % 11/13/2023 14:20 EOSINOPHILS 2.6 % 11/13/2023 14:20 BASOPHILS 0.9 % 11/13/2023 14:20 ATYPICAL LYMPHOCYTES 3.5 % 05/03/2023 12:55 POIKILOCYTOSIS 1+ 11/13/2023 14:20 Comprehensive Metabolic Panel Results: SODIUM 134 L mEq/L 11/13/2023 14:20 POTASSIUM 4.5 mEq/L 11/13/2023 14:20 CHLORIDE 102 mEq/L 11/13/2023 14:20 UREA NITROGEN 12.7 mg/dL 11/13/2023 14:20 CREATININE 1.17 mg/dL 11/13/2023 14:20 CALCIUM 9.1 mg/dL 11/13/2023 14:20 PROTEIN 7.1 g/dL 11/13/2023 14:20 ALBUMIN 3.7 g/dL 11/13/2023 14:20 ALKALINE PHOSPHATASE 71 U/L 11/13/2023 14:20 ALT/SGPT 34 U/L 11/13/2023 14:20 AST/SGOT 25 U/L 11/13/2023 14:20 TOTAL BILIRUBIN 0.3 mg/dL 11/13/2023 14:20 CARBON DIOXIDE 21 L mEq/L 11/13/2023 14:20 GLUCOSE 132 H mg/dL 11/13/2023 14:20 EGFR (CKD-EPI 2020) 60.3 11/13/2023 14:20 Hepatic Panel: No data available SODIUM 134 L mEq/L 11/13/2023 14:20 POTASSIUM 4.5 mEq/L 11/13/2023 14:20 CHLORIDE 102 mEq/L 11/13/2023 14:20 UREA NITROGEN 12.7 mg/dL 11/13/2023 14:20 CREATININE 1.17 mg/dL 11/13/2023 14:20 CALCIUM 9.1 mg/dL 11/13/2023 14:20 CARBON DIOXIDE 21 L mEq/L 11/13/2023 14:20 GLUCOSE 132 H mg/dL 11/13/2023 14:20 EGFR (CKD-EPI 2020) 60.3 11/13/2023 14:20 ____ PHOSPHOROUS 3.6 mg/dL 05/18/2023 10:09 No GLUCOSE,BLOOD-poct (STL) data found HGA1C 7.3 H % 05/18/2023 10:09 HGA1C 6.6 H % 08/07/2022 14:50 HGA1C 6.5 H % 12/13/2020 16:23 HGA1C 6.4 H % 02/04/2019 11:44 Cardiac Enzymes ____ TROPONIN I 0.045 H ng/mL 11/13/2023 19:10 TSH: TSH 3.996 uIU/mL 05/18/2023 10:09 Ancillary Data: 05/03/2023 16:31 Local Title: EKG CONSULT STL Standard Title: CARDIOLOGY DIAGNOSTIC STUDY CONSULT AUTHOR: CLINICAL,DEVICE PROXY SERVICE DOCUMENT IN [facility] SEE FULL REPORT IN [facility] SIGNATURE NOT REQUIRED SEE SIGNATURE IN [facility] ([place] EKG) AUTO-INSTRUMENT DIAGNOSIS Procedure: 52403 12 Lead ECG Release Status: Released Off-Line Verified Date Verified: May 03, 2023@16:30:59 32800.2 Ventricular Rate: 68 BPM 69182.3 Atrial Rate: 68 BPM 21487.4 P-R Interval: 174 ms 63411.5 QRS Duration: 138 ms 24919.6 Q-T Interval: 440 ms 11652 QTC Calculation(Bazett)467 ms 73586.12 Calculated P Coello: 5 degrees 48892.13 Calculated R Coello: -104 degrees 33677.14 Calculated T Coello: 45 degrees Normal sinus rhythm with sinus arrhythmia Right bundle branch block Abnormal ECG Administrative Closure: 05/03/2023 by: CLINICAL,DEVICE PROXY SERVICE < THE ABOVE NOTE IS UNSIGNED > - DRAFT COPY * DRAFT COPY * DRAFT COPY * DRAFT COPY * DRAFT COPY * DRAFT COPY - Imaging: Date Procedure CPT Status Case # 11/13/2023 CT HEAD W/O CONT [id number] Verified 2285 1. Severe periventricular white matter disease, which limits evaluation for detection of underlying infarct. Within these limitations no acute hemorrhage or large vessel infarction. If there is ongoing clinical concern, consider MRI. READING PHYSICIAN: Anjum [id number] 11/13/2023 15:14 PDT [facility] National Teleradiology Program [phone] (For Medical Practitioner Use Only) Attention Patients / Veterans: If you have questions or concerns about these test results, please contact your ordering provider or primary care team. 11/13/2023 CHEST X-RAY, 2 VIEWS 14691 Verified 2279 No large pleural effusion or sizable pneumothorax. No new focal consolidation. Unchanged cardiomediastinal silhouette. Assessment/Plan: #Dizziness #Ataxia #Chest pain DDx: Intercranial patholgies such as ischemia vs mass vs small vessel disease, cardiac etiolgies such as worsening CHF vs valvular abnormalities vs metabolic derangements vs BPPV CT Head showing severe periventricular white matter disease. No acute hemmorhage or large vessel infarction Plan: -Given about 6 month history of dizziness and now with issues with gait MRI A of brain would be useful to obtain. Based on results can consult neurology -no new echo since 2021. B/l pitting edema on exam. Need to obtian echo to assess for worsening CHF vs possible valvular issues causing dizziness -TSH ordered -Tele ordered for arrythmia -PT/OT consult to assess gait -Continue meclizine as needed for now -trending trops, EKG unremarkbale #T2DM Diet controlled Plan: CTM #Hx of CAD, unknown when stent was placed -Continue daily statin and aspirin CODE STATUS: FEN: Current Diet: REGULAR (11/13/23), Replete Electrolytes PRN Activity: as tolerated Dvt ppx: Lovenox Lines: PIV x 1 Dispo: Medicine Is the patient 65 or older? Yes Is the patient displaying signs of delirium? No Does the patient have a change in their mental status? No Is the patient displaying signs of confusion? Yes Is the patient displaying signs of disorientation? No This patient was screened for delirium. His/Her current risk level for delirium is : moderate TOBACCO CESSATION SCREEN AND COUNSELING Has patient used any form of tobacco during the past 30 days? ORYX tobacco: patient has not used tobacco during past 30 days. SCREEN FOR ALCOHOL (AUDIT-C) AUDIT-C An alcohol screening test (AUDIT-C) was negative (score=0). 1. How often did you have a drink containing alcohol in the past year? Consider a drink to be a 12 ounce can or bottle of regular beer, 8 ounces of malt liquor, a 5 ounce glass of table wine, or a 1.5 ounce shot of liquor (like scotch, gin, or vodka). Never 2. How many drinks containing alcohol did you have on a typical day when you were drinking in the past year? Response not required due to responses to other questions. 3. How often did you have six or more drinks on one occasion in the past year? Response not required due to responses to other questions. /manuel/ Steve Dunn MD Resdient Physician Signed: 11/14/2023 07:12 /manuel/ HUSSEIN HYMAN MD PhD STAFF PHYSICIAN Cosigned: 11/15/2023 12:10 11/15/2023 ADDENDUM STATUS: COMPLETED The was seen, examined, and discussed at length with the resident physician. Relevant labs, imaging studies, and past medical records were reviewed. I agree with the assessment and plan as described in the resident's note. CT head with periventricular white matter disease, otherwise unremarkable. Will obtain a TTE to complete the cardiac workup. Will also ask PT and OT to evaluatet the patient. Very slight troponin elevation of unclear significance. The may benefit from further outpatient PT. At this point, I suspect his congition issues are primarily related to the findings on CT scan. /manuel/ HUSSEIN HYMAN MD PhD STAFF PHYSICIAN Signed: 11/15/2023 12:13 STEVE DUNN [facility] Nov 14, 2023 01:00 AM NURSING ADMISSION EVALUATION NOTE: LOCAL TITLE: [facility] ACUTE INPATIENT NSG ADMISSION SCREEN STANDARD TITLE: NURSING ADMISSION EVALUATION NOTE DATE OF NOTE: NOV 14, 2023@01:00 ENTRY DATE: NOV 14, 2023@01:00:31 AUTHOR: HERNANDO CASTROER: URGENCY: STATUS: COMPLETED ===== ALLERGY/ADVERSE DRUG REACTION (ADR) REVIEW (MRT5) ===== FACILITY ALLERGY/ADR -------- No Remote Allergy/ADR Data available for this patient [facility] No Known Allergies Allergy/Adverse Drug Reaction Review to be conducted by: Nurse: Results of Allergy/ADR Review: Allergy/Adverse Drug Reaction list confirmed. ==== MEDICATION REVIEW (MRR1) ==== Did patient bring medication(s) from home? No Medication Review to be conducted by Provider ==== GENERAL INFORMATION ==== Admission information given by: Patient Is there a legal guardian/conservator? Yes: Consult/notification placed to Social Work Preferred language for discussing healthcare: Guinean Preferred mode of communication: Verbal Written Sensory Deficits & Contributing Information: Visual deficit: Bilateral Rehab Items at Bedside: Visual Aids: Standard Glasses Ability to ambulate prior to admission: Independent Items at Bedside: Visual Aids: Standard Glasses ===== INFECTIOUS DISEASE RISK SCREEN ===== Travel Screen: Have you traveled within the [place] within the last 21 days? No Have you traveled outside the [place] within the last 21 days? No Within the last 14 days, have you had: No known exposure Other Exposure to Infectious Disease: No known exposure Patient reported the following symptoms: No Symptoms Present History of Multiple Drug Resistant Organism (MDRO): No Methicillin-resistant Staphylococcus aureus (MRSA) Swabbing: Informed verbal consent obtained Education provided ===== NUTRITION SCREENING ===== Malnutrition Screening Weight (Previous 6 months): Measurement DT WEIGHT LB(KG)[BMI] 11/13/2023 21:10 188.4(85.46)[25] 10/18/2023 10:32 189.3(85.87)[25] 10/12/2023 10:26 190.7(86.50)[25] 05/18/2023 10:28 194(88.00)[26] Lost weight recently without trying: No (0 points) Have you been eating poorly because of decreased appetite? No (0 points) Total Score: 0 Other Nutrition Screening Questions: The patient does not report any concerns with their teeth that would make it difficult to eat. The patient does not report overeating to the point of feeling sick or making themselves vomit. The patient denies gaining 10 lbs.(4.5 kgs) or more in the past 3 months without trying. The patient denies having any food allergies, intolerance, special dietary needs, or ethnic, cultural or moravian preferences that would affect their dietary needs. Food Insecurity Screening Within the past 12 months, you worried whether your food would run out before you got money to buy more. Never true Within the past 12 months, the food you bought just did not last you and you did not have the money to get more. Never true Food Insecurity Disposition: Patient declined additional assistance/consults ==== RISK SCREENINGS ==== Alcohol Screen: Screen to be completed by: Nurse: SCREEN FOR ALCOHOL (AUDIT-C) An alcohol screening test (AUDIT-C) was negative (score=0). 1. How often did you have a drink containing alcohol in the past year? Consider a drink to be a 12 ounce can or bottle of regular beer, 8 ounces of malt liquor, a 5 ounce glass of table wine, or a 1.5 ounce shot of liquor (like scotch, gin, or vodka). Never 2. How many drinks containing alcohol did you have on a typical day when you were drinking in the past year? Response not required due to responses to other questions. 3. How often did you have six or more drinks on one occasion in the past year? Response not required due to responses to other questions. *Does the patient consume alcohol? No Tobacco Use: Never - tobacco user Do you currently or have you ever used alternative nicotine products? No Substance Use Assessment: *Do you use any recreational drugs or narcotics (prescription or non-prescription)? No ===== RISK OF WANDERING ===== The patient does not have a history of wandering. The patient does not have a history of elopement. The patient is not expressing a desire to leave. === SUICIDE SCREEN === Result of C-SSRS screener done was NEGATIVE. C-SSRS Screen is Negative ==== EXPOSURE TO VIOLENCE AND ABUSE PRE-SCREEN ==== Are you worried for your safety, that you will be hurt or harmed? No Has anyone tried to force you to sign papers or use your money against your will? No ==== POST TRAUMATIC STRESS DISORDER CARE CONSIDERATIONS ==== To minimize a startle response, what is your preference on how best to awaken you? No preference === SPIRITUALITY === Are there moravian practices or spiritual concerns you want the assembler lay ups, your provider, and other health care team members to know? No ==== ANTICIPATED DISCHARGE NEEDS ==== Where do you live? Housing owned/rented by [place]: Method of transportation upon discharge: Private Vehicle: Are there any anticipated barriers to discharge? No === EDUCATIONAL NEEDS/LEARNING STYLE === Barriers to learning: None evident Patient learning style preferences: Caregiver/family present Printed materials Verbal explanation ==== VISITOR INFORMATION ==== Will you have a primary support person while in the hospital? Yes: Relationship to patient: Other: granddaughters Visitor Name: in chart Contact Number: Patient's Visitor Restriction preferences: No Privacy Review: No passcode provided due to opt out ===== ASPIRATION RISK ASSESSMENT AND SWALLOW SCREEN ===== Aspiration Risk(s): Screening complete. No aspiration risk identified. Bedside Swallow Screen not indicated. /manuel/ HERNANDO DIAZ RN REGISTERED NURSE Signed: 11/14/2023 01:06 HERNANDO CASTRO [facility] Nov 14, 2023 12:55 AM NURSING TREATMENT PLAN NOTE: LOCAL TITLE: [facility] PLAN OF CARE STANDARD TITLE: NURSING TREATMENT PLAN NOTE DATE OF NOTE: NOV 14, 2023@00:55 ENTRY DATE: NOV 14, 2023@00:55:07 AUTHOR: HERNANDO CASTROER: URGENCY: STATUS: COMPLETED Plan of Care and Discharge Plan (nurse) TREATMENT PLAN Significant other involved in treatment plan and discharge planning Yes Patient involved in making decisions about their care, treatment and plan for discharge Yes Date: Nov Is the patient an elopement risk: No Does the patient have potential or actual alteration in skin integrity? No. Is patient at risk for aspiration related to signs/symptoms of dysphagia? No. Is the patient a fall risk? Yes. NURSING DIAGNOSIS: Falls Potential/Actual Injury Goals: Prior to discharge, patient will:--Injury due to fall will be minimized during hospital stay, --Verbalize safety measures to lower risk of fall/injury (lock w/c, use hand rails, ask for assistance) Nov, --Identify factor(s) that may increase risk of fall before discharge, --Maintain or preserve physical mobility during hospital stay Interventions: * Score 45 --Encourage pt to ask for assistance (MD CARLINE), --Keep night light and bathroom light on at night, --Check for elimination needs every 2 hours, --[place] to unit and surroundings (bathroom, call light, etc), --Provide non slip footwear when ambulating (NSG), --Place bed in low position or use low bed Care plan status: Continued Progress toward goals documented continuously through progress notes Patient Education(Nursing,SWS,PT/OT, Etiologist,Front End Specialist,&Physicia n) Instruct as to: Does patient have pain and/or chest pain? No. /manule/ HERNANDO MILLSN RN REGISTERED NURSE Signed: 11/14/2023 00:57 HERNANDO CASTRO [facility] Nov 14, 2023 12:50 AM NURSING INPATIENT NOTE: LOCAL TITLE: [facility] ACUTE INPATIENT NSG SHIFT ASSESSMENT STANDARD TITLE: NURSING INPATIENT NOTE DATE OF NOTE: NOV 14, 2023@00:50 ENTRY DATE: NOV 14, 2023@00:50:47 AUTHOR: HERNANDO CASTROER: URGENCY: STATUS: COMPLETED Version 2.2 Charting in accordance with [facility] APPROVED [place] STANDARD (VAAES) ACUTE INPATIENT/REHABILITATION NURSING ADMISSION SCREENING, ASSESSMENT, AND STANDARDS OF CARE ====== ASSESSMENT ====== ====== HANDOFF ====== Safety check completed ====== PAIN ASSESSMENT ====== Patient's acceptable pain goal: 3 Sometimes distracts me Are you currently experiencing pain? No: Pain Score: 0 ====== MORALES FALL SCALE & TIPS PROGRAM ====== Morales Fall Scale: The Morales Fall scale was performed and score was 35. This is indicative of moderate risk for falls. History of falling: immediate or within 3 months? No Secondary diagnosis: Yes Ambulatory aid: None/bedrest/nurse assist Intravenous therapy/Heparin lock: Yes Gait/Transferring: Normal/bed rest/immobile Mental Status: Oriented to own ability/knows own limitations Fall Tailoring Interventions for Patient Safety (TIPS) Fall TIPS initiated with patient: Yes Interventions: Communicate recent fall or risk of harm Fall TIPS reviewed with patient: Yes Interventions: Communicate recent fall or risk of harm ====== ENVIRONMENTAL SAFETY MANAGEMENT ====== Implemented safety standards of care: -[place] to unit & environment -Adequate room lighting -Bed in low and locked position -Call light within reach -Personal items within reach -Traffic path in room free of clutter -Non-slip footwear -Upper/half length side rails up for bed mobility -Sensory aids within reach -Encourage patient to utilize sensory support Additional safety measures: Increased frequency of rounding Patient specific safety measures: Describe: BR light on at night ====== NEUROLOGICAL ====== Neurological Orientation: Oriented x4 Level of Consciousness (AVPU): Alert = Appears aware of and responsive to the environment on their own. Follows commands, opens eyes spontaneously, and tracks objects. Affect/behavior: Cooperative Calm ====== NEUROMUSCULAR/NEUROVASCULAR EXTREMITIES ASSESSMENT ====== Strength: [place] Bilateral: Strong Upper Extremity Bilateral: Full strength Lower Extremity Bilateral: Full strength Sensation: Upper Extremity Sensation Bilateral: Intact Lower Extremity Sensation Bilateral: Intact Temperature: Upper Extremity Temperature Bilateral: Warm Lower Extremity Temperature Bilateral: Warm ====== CARDIOVASCULAR ====== Heart Sounds: Normal (S1S2) Cardiac Rhythm Analysis: Normal Sinus Rhythm Heart Block: First Degree Other: PVCs/PACs Telemetry Transmitter Pack #: 56 Capillary Refill: All 4 extremities, less than or equal to 3 seconds. Peripheral Pulses: All 4 extremities, 3+ normal. Edema: None Cardiovascular - Embolism Prevention: Comment: lovenox ====== RESPIRATORY ====== Respirations: Unlabored Pattern: Regular Breath Sounds Auscultated: Anterior and posterior Left Upper Lobe: Clear Right Upper Lobe: Clear Right Middle Lobe: Clear Left Lower Lobe: Clear Right Lower Lobe: Clear Supplemental Oxygen Therapy: Method: Other: room air ====== GASTROINTESTINAL ====== Last bowel movement: 11/13/2023 Elimination: Continent Abdominal Description: Rounded Palpation: Soft Bowel Sounds: RUQ: Active LUQ: Active RLQ: Active LLQ: Active ====== GENITOURINARY ====== Elimination: Continent ===== INTEGUMENTARY/SKIN/WOUND - (INCLUDING KAMLA) SEE NOTE: VAAES SKIN INPECTION/ASSESSMENT ===== ====== MOBILITY ====== Mobility Status: Independent: Able to stand and step without staff assistance Steady standing balance /manuel/ HERNANDO DIAZ RN REGISTERED NURSE Signed: 11/14/2023 00:55 HERNANDO CASTRO [facility] Nov 14, 2023 12:48 AM NURSING NOTE: LOCAL TITLE: NIK PERSONAL EFFECTS [facility] STANDARD TITLE: NURSING NOTE DATE OF NOTE: NOV 14, 2023@00:48 ENTRY DATE: NOV 14, 2023@00:48:27 AUTHOR: HERNANDO CASTRO COSIGNER: URGENCY: STATUS: COMPLETED PERSONAL EFFECTS Contraband Check: Advised of prohibited contraband, Denies contraband, No contraband observed Medication Check: Denies medication on person Prosthetic Check: Glasses Personal Items: Patient/Family advised that [facility] not responsible for loss of any personal effects or valuables., Patient/Family advised of locker availability., Patient chooses to keep belongings at bedside., Patient present during collection of personal effects. Patient Funds Disposition: $80 hall in wallet, witnessed by JAKE Adan- will keep in pants pocket Patient Valuables Observed: jeans, socks, shoes, shirt, belt, ball cap, wallet with hall and cards, cell no camera engineer, glasses /es/ HERNANDO DIAZ RN REGISTERED NURSE Signed: 11/14/2023 00:50 HERNANDO CASTRO [facility] Nov 14, 2023 12:43 AM NURSING NOTE: LOCAL TITLE: NIK PROGRESS NOTE STL STANDARD TITLE: NURSING NOTE DATE OF NOTE: NOV 14, 2023@00:43 ENTRY DATE: NOV 14, 2023@00:43:37 AUTHOR: HERNANDO CASTROIGNER: URGENCY: STATUS: COMPLETED denies falls at home but states that family has told him that he has fallen recently but he doesn't believe it; refused to call for assistance prior to ambulation and walks with a steady gait; stated, By the time you get here, I will have wet myself. ; declined to have condom catheter placed; bathroom light left on; education given on the importance of finding out the cause of recent vertigo; pt says he's not having vertigo now and agrees to report if any develop; call light in reach; declined snack and drank fresh ice water /es/ HERNANDO CASTRO BSN RN REGISTERED NURSE Signed: 11/14/2023 00:48 HERNANDO CASTRO [facility] Nov 13, 2023 11:42 PM NURSING NOTE: LOCAL TITLE: VAAES SKIN INSPECTION/ASSESSMENT STANDARD TITLE: NURSING NOTE DATE OF NOTE: NOV 13, 2023@23:42 ENTRY DATE: NOV 13, 2023@23:42:18 AUTHOR: HERNANDO CASTROIGNER: URGENCY: STATUS: COMPLETED INITIAL SKIN INSPECTION/ASSESSMENT SKIN INSPECTION: Skin Color: Usual for ethnicity Skin Temperature: Warm Skin Moisture: Normal Skin Turgor: Elastic (normal/immediate) Kamla Skin Assessment: The patient's Kamla Scale Score is 22. The patient is considered not at risk for development of pressure ulcers/injuries. Sensory perception -- ability to respond meaningfully to pressure-related discomfort No impairment. Moisture -- degree to which skin is exposed to moisture Rarely moist. Activity -- ability to change and control body position Walks frequently. Mobility -- ability to change and control body position No limitation. Nutrition -- usual food intake patterns Adequate. Friction and shear No apparent problem. INTERVENTIONS: New or changed pressure ulcer/injury interventions or medical condition. Education: Teach patient/caregiver importance of changing position frequently for pressure ulcer/injury prevention. Pressure-Redistribution measures: Encourage small, frequent position changes Maximize mobilization: Encourage activity as tolerated Manage moisture: Instruct patient/resident/caregiver to request assistance as needed Maintain clean and dry skin Manage nutrition: Monitor fluid/food intake Provide or encourage oral care prn RISK FACTORS THAT INCREASE RISK FOR DEVELOPING PRESSURE INJURIES: The patient/resident has the following: Age over 75 Known vascular surgery or vascular disease Device(s): (nasogastric tubes, oxygen tubing, urinary catheters, cell phone etc.) Comment: telemetry Localized abnormality: Bruising: Location(s): MARY MILLSN RN REGISTERED NURSE Signed: 11/13/2023 23:44 HERNANDO CASTRO [facility] Nov 13, 2023 10:50 PM CARDIOLOGY NOTE: LOCAL TITLE: CARDIOLOGY TELEMETRY STL STANDARD TITLE: CARDIOLOGY NOTE DATE OF NOTE: NOV 13, 2023@22:50 ENTRY DATE: NOV 13, 2023@22:50:13 AUTHOR: BHAVIN DOUGLASSIGNER: URGENCY: STATUS: COMPLETED Telemetry reviewed: Normal Sinus Rhythm 1'avb ivcd rare pvcs and pacs 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 RATE: 68 SHIFT: 3-11 Shift COMMENT: jaya [employer] Signed: 11/13/2023 22:50 BHAVIN DOUGLASS [facility] Nov 13, 2023 09:39 PM NURSING INPATIENT NOTE: LOCAL TITLE: [facility] NURSING FREQUENT DOCUMENTATION STANDARD TITLE: NURSING INPATIENT NOTE DATE OF NOTE: NOV 13, 2023@21:39 ENTRY DATE: NOV 13, 2023@21:39:58 AUTHOR: HERNANDO CASTROIGNER: URGENCY: STATUS: COMPLETED Version 2.4 Charting in accordance with [place] APPROVED [place] STANDARD (VTAES) ACUTE INPATIENT/REHABILITATION NURSING ADMISSION SCREENING, ASSESSMENT, AND STANDARDS OF CARE ====== NATIONAL EARLY WARNING SCORE (NEWS) ====== The following vital measurements were used to complete the NEWS. Measurement DT TEMP PULSE RESP BP POx F(C) (L/MIN)(%) 11/13/2023 21:10 97(36.1) 68 18 172/77 97 The NEWS total is 0. 1. Temperature (C/F): Score = 0 36.1 - 38.0 C (96.9 - 100.4 F) 2. Pulse: Score = 0 51-90 3. Respirations: Score = 0 12-20 4. Blood Pressure (Only Systolic BP, mmHg): Score = 0 111-219 5. Pulse Oximetry: Score = 0 96% or greater 6. Supplemental oxygen in use: Score = 0 No 7. AVPU: Score = 0 Alert /manuel/ HERNANDO CASTRO BSN RN REGISTERED NURSE Signed: 11/13/2023 21:40 HERNANDO CASTRO [facility] Nov 13, 2023 09:14 PM ADMINISTRATIVE NOTE: LOCAL TITLE: ADMINISTRATIVE ST STANDARD TITLE: ADMINISTRATIVE NOTE DATE OF NOTE: NOV 13, 2023@21:14 ENTRY DATE: NOV 13, 2023@21:14:08 AUTHOR: JUSTIN REAVES EXP COSIGNER: URGENCY: STATUS: COMPLETED PER ORDER 11/13/2023. NOTIFIED MED II NIGHT RESIDENT BENJAMIN DUNN OF ADMIT TO 7N. /manuel/ JUSTIN REAVES ADVANCED PRISON KEEPER Signed: 11/13/2023 21:15 Receipt Acknowledged By: * AWAITING SIGNATURE * LEA HYMAN I 11/15/2023 10:58 /manuel/ SUKI BRANCH SUPERVISORY PRISON KEEPER JUSTIN REAVES [facility]
--- OUTSIDE RECORDS SUMMARY | 2024-05-17 21:51 | XMS_ITS | Encounter Summary ---
Author Name [facility] [place] Organization [facility] [place] Address [address] [place] [address] Care Team Providers Care Jig Grinder Name Role Phone MEAGHAN QUINTEROS Primary Care [...] PART B Aug 12, 2001 PART B [id number] JESUS ABRAHAM PATIENT MEDICARE (WNR) MEDICARE (M) PART A Aug 12, 2001 PART A [id number] [phone] JESUS ABRAHAM PATIENT Selected Encounter This section includes the information on record at [place] for the Encounter. Date/Time Encounter Type Encounter Description Reason Pro vider Source Nov 23, 2023 03:14 PM Outpatient Encounter TELEPHONE PRIMARY CARE IHE Encounter Template Text not used by [place] Plan of Treatment: Future Appointments (+ 6 [...] from all [facility]. Appointment Date/Time Appointment Type Appointme nt Facility Name Dec 24, 2023 02:45 PM AMBULATORY - SURGERY [facility] Jan 01, 2024 02:00 PM AMBULATORY - REHAB MEDICIN E [facility] Feb 29, 2024 01:30 PM AMBULATORY - MEDICINE [facility] Mar 03, 2024 09:15 AM AMBULATORY - MEDICINE [facility] Mar 08, 2024 01:30 PM AMBULATORY - MEDICINE [facility] Mar 10, 2024 12:45 PM AMBULATORY - SURGERY [facility] Apr 16, 2024 11:00 AM AMBULATORY - REHAB MEDICIN E [facility] May 15, 2024 11:00 AM AMBULATORY - SURGERY [facility] Active, Pending, and Scheduled Orders This section includes a listing of several types of active, pending, and scheduled orders, including clinic medications orders, diagnostic test orders, procedure orders and consult orders; where the start date of the order is 45 days before the date of the Encounter or 45 days after the date of theEncounter. The data comes from all [facility]. Test Date/Time Test Type Test Details Facility Name Nov 13, 2023 09:10 PM Laboratory - Chemi stry Order MRSA SURVL NARES DNA NARES [facility] Nov 21, 2023 12:00 AM Laboratory - Chemi stry Order HGA1C BLOOD SP [facility] Nov 21, 2023 12:00 AM Laboratory - Chemi stry Order VITAMIN D, 25-HYDROXY GOLD/RED SST SERUM SP [facility] Lab Results: +/- 30 [...] Range Comment Nov 14, 2023 05:33 AM [facility] PHOSPHOROUS Specimen Type: PLASMA Comment: No hemolysis noted. Ordering Provider: NAYLA DUNN Report Released Date/Time: Nov 14, 2023 04:23 AM Reporting Lab: [facility] [address] [place] [phone] Performing Lab: [facility] [address] [place] [phone] PHOSPHOROUS 2.9 mg/dL 2.3-4.7 Nov 14, 2023 05:33 AM [facility] TSH W/ REFLEX FT4 (STL) Specimen Type: PLASMA No comment entered. Ordering Provider: NAYLA DUNN Report Released Date/Time: Nov 14, 2023 04:23 AM Reporting Lab: [place] [address] Performing Lab: [place] [phone] TSH 3.546 u[IU]/mL 0.47-5 Nov 14, 2023 05:33 AM [facility] MAGNESIUM Specimen Type: PLASMA Comment: No hemolysis noted. Ordering Provider: NAYLA DUNN Report Released Date/Time: Nov 14, 2023 04:23 AM Reporting Lab: [facility] [address] [facility] [address] Performing Lab: [address] [address] MAGNESIUM 2.1 mg/dL 1.6-2.6 Nov 14, 2023 05:33 AM [facility] BASIC METABOLIC PANEL Specimen Type: PLASMA Comment: No hemolysis noted. Ordering Provider: NAYLA DUNN Report Released Date/Time: Nov 14, 2023 04:23 AM Reporting Lab: [address] [address] Performing Lab: [address] [address] CREATININE 0.78 mg/dL 0.7-1.3 UREA NITROGEN 12.0 mg/dL 9.0-25.0 GLUCOSE 83 mg/dL 72-99 SODIUM 136 meq/L 136-145 POTASSIUM 4.4 meq/L 3.5-5 CHLORIDE 103 meq/L 98-107 CARBON DIOXIDE 26 meq/L 22-31 CALCIUM 8.8 mg/dL 8.4-10.4 EGFR (CKD-EPI 2020) 86.3 >60 Nov 14, 2023 05:33 AM [facility] CBC Specimen Type: BLOOD Comment: Manual diff performed on 11/13/23 Ordering Provider: NAYLA DUNN Report Released Date/Time: Nov 14, 2023 04:23 AM Reporting Lab: [address] [address] Performing Lab: [address] [address] WBC 12.8 10*3/uL H 3.6-11.2 RBC 3.87 [...] 10*3/uL 0.00-0.20 Nov 14, 2023 01:30 AM [facility] TROPONIN I Specimen Type: PLASMA No comment entered. Ordering Provider: NAYLA DUNN Report Released Date/Time: Nov 14, 2023 01:10 AM Reporting Lab: [place] [address] [address] Performing Lab: [address] [address] TROPONIN I 0.044 ng/mL H 0-0.033 Nov 13, 2023 10:00 PM [facility] MRSA SURVL NARES DNA [...] Nov 13, 2023 09:10 PM Reporting Lab: [address] [address] Performing Lab: [address] [address] MRSA SURVL NARES DNA Negative Negative Nov 13, 2023 07:10 PM [facility] TROPONIN I Specimen Type: PLASMA No comment entered. Ordering Provider: CYRUS EVANS Report Released Date/Time: Nov 13, 2023 06:56 PM Reporting Lab: [address] [address] Performing Lab: [address] [address] TROPONIN I 0.045 ng/mL H 0-0.033 Nov 13, 2023 06:20 PM [facility] BLOOD GAS PANEL ABG ([facility]) Specimen Type: VENOUS BLOOD Comment: Test Performed by: [id number] Meter #: [id number] Ordering Provider: CYRUS EVANS Report Released Date/Time: Nov 13, 2023 06:20 PM Reporting Lab: [address] [address] Performing Lab: [facility] [address] [place] [phone] GEM PH 7.38 7.31-7.41 GEM PCO2 52 [...] TEMP 37.0 Nov 13, 2023 06:15 PM [facility] COVID-19 DIAGNOSTIC (FLU/RSV)(STL) Specimen [...] Nov 13, 2023 03:21 PM Reporting Lab: [address] [address] Performing Lab: [place] [phone] INFLUENZA A Negative Negative INFLUENZA B Negative Negative COVID-19 (STL-PB) Not Detected Not Detected RSV (Cepheid) NEGATIVE Negative Nov 13, 2023 06:00 PM [facility] APTT Specimen Type: PLASMA No comment entered. Ordering Provider: CYRUS EVANS Report Released Date/Time: Nov 13, 2023 03:21 PM Reporting Lab: [address] [address] Performing Lab: [address] [address] APTT 33.7 s 26.7-39.9 Nov 13, 2023 06:00 PM [facility] PT/INR NEW (L-MA) Specimen Type: PLASMA No comment entered. Ordering Provider: CYRUS EVANS Report Released Date/Time: Nov 13, 2023 03:21 PM Reporting Lab: [address] [address] Performing Lab: [address] [address] PROTIME 12.7 s H 9.4-12.5 INR VALUE 1.1 {INR} Nov 13, 2023 04:59 PM [facility] URINALYSIS W/ CX REFLEX (L-PB) Specimen Type: URINE No comment entered. Ordering Provider: CYRUS EVANS Report Released Date/Time: Nov 13, 2023 03:12 PM Reporting Lab: [address] [address] Performing Lab: [address] [address] URINE COLOR Yellow Yellow U.BILIRUBIN Negative mg/dL [...] 1.005-1.02 9 Nov 13, 2023 02:20 PM [facility] TROPONIN I Specimen Type: PLASMA Comment: No hemolysis noted. Ordering Provider: CYRUS EVANS Report Released Date/Time: Nov 13, 2023 02:14 PM Reporting Lab: [address] [address] Performing Lab: [address] [address] TROPONIN I 0.044 ng/mL H 0-0.033 Nov 13, 2023 02:20 PM [facility] COMPREHENSIVE METABOLIC PANEL Specimen Type: PLASMA Comment: No hemolysis noted. Ordering Provider: CYRUS EVANS Report Released Date/Time: Nov 13, 2023 02:14 PM Reporting Lab: [address] [address] Performing Lab: [address] [address] CREATININE 1.17 mg/dL 0.7-1.3 UREA NITROGEN 12.7 [...] 60.3 >60 Nov 13, 2023 02:20 PM [facility] CBC Specimen Type: BLOOD No comment entered. Ordering Provider: CYRUS EVANS Report Released Date/Time: Nov 13, 2023 02:14 PM Reporting Lab: [facility] [address] [facility] [address] Performing Lab: [facility] [address] [facility] [address] WBC 12.5 10*3/uL H 3.6-11.2 RBC 4.21 [...] 66 122/60 16 97 0 187 25 [facility] Social History: Smoking Status (Most current) and Tobacco Use (All prior to encounter date) This section includes the most current, and the historical, smoking and tobacco- related health factors from the [place] facility where the Encounter took place. Current Smoking Status This section includes the most current smoking, or tobacco-related health factor, from the [place] facility where the Encounter took place. Date/Time Current Smoking Status Comment Dena pelletiery Nov 23, 2023 11:30 AM [place]-TOBACCO NEVER USED [facility] Tobacco Use History This section includes a history of the smoking, or tobacco-related health factors, that were collected on or before the date of the Encounter. The data comes from the [place] facility where the Encounter took place. Date/Time Smoking Status/Tobacco Use Comment F acility Nov 23, 2023 11:30 AM VA-TOBACCO NEVER USED [facility] Nov 23, 2023 11:30 AM VA-TOBACCO QUIT 15 YRS OR MORE [facility] Nov 14, 2023 01:18 AM ORYX ADMIT TOBACCO SCREEN NO [facility] Aug 04, 2022 11:30 AM VA-TOBACCO NEVER USED [facility] Mar 11, 2021 10:30 AM VA-TOBACCO FORMER USER [facility] Mar 11, 2021 10:30 AM VA-TOBACCO QUIT 15 YRS OR MORE [facility] Apr 19, 2018 09:07 AM VA-TOBACCO FORMER USER [facility] Apr 19, 2018 09:07 AM VA-TOBACCO QUIT 15 YRS OR MORE [facility] Jul 24, 2017 08:16 AM QUIT TOBACCO >7 YEARS AGO [facility] Apr 16, 2017 12:43 PM QUIT TOBACCO >7 YEARS AGO [facility] Feb 01, 2017 11:47 AM LIFETIME NON-USER OF TOBACCO [facility] Nov 15, 2016 09:00 AM QUIT TOBACCO >7 YEARS AGO [facility] September 11, 2016 06:27 PM QUIT TOBACCO >7 YEARS AGO [facility] Dec 09, 2015 10:17 AM QUIT TOBACCO >7 YEARS AGO [facility] Jan 05, 2015 08:22 AM CURRENT TOBACCO USER [facility] Jan 05, 2015 08:22 AM TOBACCO MEDS OFFER ED BUT DECLINED [facility] Mar 18, 2014 10:40 AM CURRENT TOBACCO USER [facility] Mar 18, 2014 10:40 AM TOBACCO MEDS OFFER ED BUT DECLINED [facility] Nov 04, 2013 09:40 AM CURRENT TOBACCO USER [facility] Nov 26, 2012 08:10 AM QUIT TOBACCO >7 YEARS AGO [facility] May 03, 2009 08:45 AM QUIT TOBACCO >7 YEARS AGO [facility] Jul 06, 2008 08:46 AM CURRENT TOBACCO USER [facility] Jul 25, 2007 12:30 PM QUIT TOBACCO >12 M O & <7 YRS AGO [facility] Jun 07, 2006 09:21 AM CURRENT TOBACCO USER [facility] Jun 07, 2006 09:21 AM TOBACCO [facility] SMO[facility]IN[facility] Aug 25, 2005 11:01 AM CURRENT TOBACCO USER [facility] Aug 25, 2005 11:01 AM TOBACCO CONTEMPLATION STAGE [facility] Oct 25, 2004 10:18 AM CURRENT NON-TOBACC O USER-HX OF USE [facility] Oct 25, 2004 10:18 AM TOBACCO TERMINATION STAGE [facility] Aug 24, 2003 10:43 AM CURRENT NON-TOBACC O USER-HX OF USE [facility] Aug 24, 2003 10:43 AM TOBACCO TERMINATION STAGE [facility] Aug 05, 2002 09:55 AM CURRENT NON-TOBACC O USER-HX OF USE QUIT [facility] Apr 15, 2001 08:28 AM CURRENT NON-TOBACC O USER-HX OF USE quit in 1979 [facility] Advance Directives: All historical and current Section Date Range: From patient's date of to the date document was created. This section includes ALL of a patient's completed or amended [place] Advance and Rescinded Directives. The entries below indicate that a directive exists for the patient, but an actual copy is not included with this document. The data comes from all [place] facilities. Date Advance Directives Provider Source Oct 19, 2023 ADVANCE DIRECTIVE WANG MURILLO [facility] Dec 12, 2022 RESCINDED ADVANCE DIRECTIVE JITENDRA MEADOWS [facility] September 12, 2016 ADVANCE DIRECTIVE DISCUSSION YVETTE MEADOWS [facility] Radiology Reports: +/- 30 [...] the Encounter. The data comes from all [place] treatment facilities. Date/Time Radiology Report Provider Source Nov 23, 2023 09:03 AM NM MYOCARDIAL P SPECT STRESS/REST-P: JESUS ABRAHAM [id number] -[id number] M Exm Date: NOV 23, 2023@09:03 Req Phys: MEAGHAN QUINTEROS Loc: [facility]-PC TM-C SAME DAY CLINIC (Re Img Loc: [facility]-NUCLEAR MEDICINE Service: Unknown [address] [address] (Case [id number] COMPLETE) NM MYOCARDIAL PERF SPECT STRESS/R(NM Detailed) CPT:21269 Reason for Study: CHEST PAIN, ASSESS SUSPECTED [...] 23, 2023 Date Verified: NOV 23, 2023 Account Executive E-Sig:/ES/AGUSTO LIPSCOMB Report: PATIENT NAME: JESUS ABRAHAM CASE #: [id number], [id number], [id number], [id number], [id number] EXAMINATION: Rest/Lexiscan Stress Gated SPECT Myocardial Imaging [...] code: 1000. Dictated by Rik Brand MD (Paradi Tender), Rodney Smith MD (Paradi Tender) IAgusto, have reviewed the images and report and concur with these findings. Primary Interpreting Staff: AGUSTO LIPSCOMB, RADIOLOGIST (Account Executive) Primary Interpreting Resident: IRK BRAND MD, VICE PRESIDENT SALES /AGUSTO MAST [facility] Nov 13, 2023 04:[address] HEAD W/O CONT: JESUS ABRAHAM [id number] -[id number] M Ex Date: NOV 13, 2023@16:07 Req Phys: CYRUS EVANS Loc: [facility]-EMERGENCY DEPT 2ND SHIFT (R Img Loc: [facility]-CT IMAGING [facility] Service: Unknown [facility] [address] [place] [address] (Case [id number] COMPLETE) CT HEAD W/O CONT (CT Detailed) CPT:60796 Reason for Study: confusion Clinical History: Responsible Attending: cyrus evans Attending Contact Number: [phone] Resident Contact Number: Allergies listed in CPRS chart: Patient has answered NKA Creatinine: CREATININE 1.17 mg/dL 11/13/2023 14:20 /eGFR: STL EGFR (within one year). CREATININE 1.17 mg/dL (11/13/23 14:20) Wt: 189.3 lb [85.87 kg] (10/18/2023 10:32) History of: Renal failure, chronic or acute renal disease: NO Report Status: Verified Date Reported: NOV 13, 2023 Date Verified: NOV 13, 2023 Account Executive E-Sig: Report: CT HEAD W/O CONT HISTORY: confusion COMPARISON: CT head 06/11/2019 TECHNIQUE: Contiguous axial CT images from the level of the skull base through the skull apex, performed at the local [place] facility. 269 images were received by the [place] National Teleradiology Program (NTP) for interpretation. RADIATION [...] clinical concern, consider MRI. READING PHYSICIAN: Anjum [id number] 11/13/2023 15:14 PDT [facility] National Teleradiology Program [phone] (For Medical Practitioner Use Only) Attention Patients / Veterans: If you have questions or concerns about these test results, please contact your ordering provider or primary care team. Primary Interpreting Staff: RADIOLOGY,OUTSIDE SERVICE, Staff Physician / RADIOLOGY,OUTSIDE SERVICE [facility] Nov 13, 2023 03:59 PM CHEST X-RAY, 2 VIEWS: JESUS ABRAHAM [id number] -[id number] M Exm Date: NOV 13, 2023@15:59 Req Phys: CYRUS EVANS Pat Loc: -EMERGENCY DEPT 2ND SHIFT (R Img Loc: -MAIN RADIOLOGY SUITE Service: Unknown [facility], [facility] [address] [place] [address] (Case [id number] COMPLETE) CHEST X-RAY, 2 VIEWS (RAD Detailed) CPT:50064 Reason for Study: chest pain Clinical History: Report Status: Verified Date Reported: NOV 13, 2023 Date Verified: NOV 13, 2023 Account Executive E-Sig:/ES/AGUSTO LIPSCOMB Report: INDICATION: chest pain COMPARISON: None TECHNIQUE: Chest 2 views Impression: No large pleural effusion or sizable pneumothorax. No new focal consolidation. Unchanged cardiomediastinal silhouette. Primary Interpreting Staff: AGUSTO LIPSCOMB, RADIOLOGIST (Account Executive) /AGUSTO [place]OVER [facility] Pathology Reports: +/- 30 days [...] the Encounter. The data comes from all [place] treatment facilities. Date/Time Pathology Report Provider Source Nov 13, 2023 06:10 PM LR MICROBIOLOGY RE PORT: Accession [UID]: [facility] [id number] [[id number]] Received: Nov 13, 2023@18:22 Collection sample: B [...] --=--=--=--=--=--=-- Performing Laboratory: Bacteriology Report Performed By: [facility] [id number] [address] [facility] [address] [place] [address] [facility] Nov 13, 2023 06:05 PM LR MICROBIOLOGY RE PORT: Accession [UID]: [id number] [[id number]] Received: Nov 13, 2023@18:23 Collection sample: Ivon [...] --=--=--=--=--=--=-- Performing Laboratory: Bacteriology Report Performed By: [facility] [address] [facility] CLIA# [id number] [address] [facility] [address] [place] [address] [facility] Encounter Notes: All associated encounter notes This section contains the clinical notes associated to the Encounter. Date/Time Encounter Note(s) Provider Source Nov 23, 2023 03:14 PM SOCIAL WORK TELEPH ONE ENCOUNTER NOTE: LOCAL TITLE: SW TELEPHONE CONTACT ST STANDARD TITLE: SOCIAL WORK TELEPHONE ENCOUNTER NOTE DATE OF NOTE: NOV 23, 2023@15:14 ENTRY DATE: NOV 23, 2023@15:14:46 AUTHOR: JOVITA PARKER EXP COSIGNER: URGENCY: STATUS: COMPLETED PCP referred Vet's granddaughter/DPOA/CG Cassandra Burns to PACT SALON CUSTOMER EXPERIENCE SPECIALIST to assess any care needs/discuss resources available for with vascular dementia. Spoke with Mrs. Burns, agreeable for phone appointment 11/28/23 @ 9:00 am. /manuel/ JOVITA PARKER CONTINUOUS PROCESS MACHINE OPERATOR, SALON CUSTOMER EXPERIENCE SPECIALIST, Primary Care Signed: 11/23/2023 15:16 JOVITA PARKER [facility]
--- OUTSIDE RECORDS SUMMARY | 2024-05-17 21:51 | XMS_ITS ---
Author Name [facility] [facility] [facility] [place] Address [address] [place] [address] Care Team Providers Care Mirror Framer Name Role Phone MEAGHAN QUINTEROS Primary Care [...] PART A Aug 12, 2001 PART A [id number] [phone] [place] PATIENT MEDICARE (WNR) MEDICARE (M) PART B Aug 12, 2001 PART B [id number] JESUS CASTILLO PATIENT Selected Encounter This section includes the information on record at [place] for the Encounter. Date/Time Encounter Type Encounter Description Reason Provider Source Nov 19, 2023 08:03 AM Outpatient Encounter ADMIN PAT ACTIVAICHA (MASNONCT) MEAGHAN QUINTEROS IHOlesya Encounter Template Text not used by [place] Plan of Treatment: Future Appointments (+ 6 [...] 20 appointments. The data comes from all [facility]. Appointment Date/Time Appointment Type Appointme nt Facility Name Nov 23, 2023 09:00 AM AMBULATORY - MEDICINE [facility] Nov 23, 2023 10:00 AM AMBULATORY - MEDICINE [facility] Nov 23, 2023 11:30 AM AMBULATORY - MEDICINE [facility] Dec 24, 2023 02:45 PM AMBULATORY - SURGERY [facility] Jan 01, 2024 02:00 PM AMBULATORY - REHAB MEDICIN E [facility] Feb 29, 2024 01:30 PM AMBULATORY - MEDICINE [facility] Mar 03, 2024 09:15 AM AMBULATORY - MEDICINE [facility] Mar 08, 2024 01:30 PM AMBULATORY - MEDICINE [facility] Mar 10, 2024 12:45 PM AMBULATORY - SURGERY [facility] Apr 16, 2024 11:00 AM AMBULATORY - REHAB MEDICIN E [facility] May 15, 2024 11:00 AM AMBULATORY - SURGERY [facility] Active, Pending, and Scheduled Orders This section includes a listing of several types of active, pending, and scheduled orders, including clinic medications orders, diagnostic test orders, procedure orders and consult orders; where the start date of the order is 45 days before the date of the Encounter or 45 days after the date of theEncounter. The data comes from all [facility]. Test Date/Time Test Type Test Details Facility Name Nov 13, 2023 09:10 PM Laboratory - Chemi stry Order MRSA SURVL NARES DNA NARES WC [facility] Nov 21, 2023 12:00 AM Laboratory - Chemi stry Order HGA1C BLOOD SP [facility] Nov 21, 2023 12:00 AM Laboratory - Chemi stry Order VITAMIN D, 25-HYDROXY GOLD/RED SST SERUM SP [facility] Lab Results: +/- 30 days of the [...] Range Comment Nov 14, 2023 05:33 AM [facility] TSH W/ REFLEX FT4 (STL) Specimen Type: PLASMA No comment entered. Ordering Provider: NAYLA DUNN Report Released Date/Time: Nov 14, 2023 04:23 AM Reporting Lab: [facility] [address] [address] Performing Lab: [facility] [address] [place] [phone] TSH 3.546 u[IU]/mL 0.47-5 Nov 14, 2023 05:33 AM [facility] PHOSPHOROUS Specimen Type: PLASMA Comment: No hemolysis noted. Ordering Provider: NAYLA DUNN Report Released Date/Time: Nov 14, 2023 04:23 AM Reporting Lab: [facility] [address] [facility] [address] Performing Lab: [facility] [address] [facility] [address] PHOSPHOROUS 2.9 mg/dL 2.3-4.7 Nov 14, 2023 05:33 AM [facility] MAGNESIUM Specimen Type: PLASMA Comment: No hemolysis noted. Ordering Provider: NAYLA DUNN Report Released Date/Time: Nov 14, 2023 04:23 AM Reporting Lab: [facility] [address] [facility] [phone] Performing Lab: [facility] [address] [facility] [address] MAGNESIUM 2.1 mg/dL 1.6-2.6 Nov 14, 2023 05:33 AM [facility] CBC Specimen Type: BLOOD Comment: Manual diff performed on 11/13/23 Ordering Provider: NAYLA DUNN Report Released Date/Time: Nov 14, 2023 04:23 AM Reporting Lab: [facility] [address] [facility] [address] Performing Lab: [facility] [address] [place] [phone] WBC 12.8 10*3/uL H 3.6-11.2 RBC 3.87 [...] 10*3/uL 0.00-0.20 Nov 14, 2023 05:33 AM [facility] BASIC METABOLIC PANEL Specimen Type: PLASMA Comment: No hemolysis noted. Ordering Provider: NAYLA DUNN Report Released Date/Time: Nov 14, 2023 04:23 AM Reporting Lab: [facility] [address] [facility] [address] Performing Lab: [address] [address] CREATININE 0.78 mg/dL 0.7-1.3 UREA NITROGEN 12.0 mg/dL 9.0-25.0 GLUCOSE 83 mg/dL 72-99 SODIUM 136 meq/L 136-145 POTASSIUM 4.4 meq/L 3.5-5 CHLORIDE 103 meq/L 98-107 CARBON DIOXIDE 26 meq/L 22-31 CALCIUM 8.8 mg/dL 8.4-10.4 EGFR (CKD-EPI 2020) 86.3 >60 Nov 14, 2023 01:30 AM [facility] TROPONIN I Specimen Type: PLASMA No comment entered. Ordering Provider: NAYLA DUNN Report Released Date/Time: Nov 14, 2023 01:10 AM Reporting Lab: [facility] [address] [place] [phone] Performing Lab: [facility] [address] [place] [address] TROPONIN I 0.044 ng/mL H 0-0.033 Nov 13, 2023 10:00 PM [facility] MRSA SURVL NARES DNA Specimen Type: NARES [...] Nov 13, 2023 09:10 PM Reporting Lab: [address] [address] Performing Lab: [address] [address] MRSA SURVL NARES DNA Negative Negative Nov 13, 2023 07:10 PM [facility] TROPONIN I Specimen Type: PLASMA No comment entered. Ordering Provider: CYRUS EVANS Report Released Date/Time: Nov 13, 2023 06:56 PM Reporting Lab: [facility] [address] [place] [phone] Performing Lab: [address] [address] TROPONIN I 0.045 ng/mL H 0-0.033 Nov 13, 2023 06:20 PM [facility] BLOOD GAS PANEL ABG ([facility]) Specimen Type: VENOUS BLOOD Comment: Test Performed by: [id number] Meter #: [id number] Ordering Provider: CYRUS EVANS Report Released Date/Time: Nov 13, 2023 06:20 PM Reporting Lab: [facility] [address] [place] [phone] Performing Lab: [address] [address] GEM PH 7.38 7.31-7.41 GEM PCO2 52 [...] TEMP 37.0 Nov 13, 2023 06:15 PM [facility] COVID-19 DIAGNOSTIC (FLU/RSV)([facility]) Specimen Type: NASOPHARYNX Comment: [...] Nov 13, 2023 03:21 PM Reporting Lab: [address] [address] Performing Lab: [facility] [address] [facility] [address] INFLUENZA A Negative Negative INFLUENZA B Negative Negative COVID-19 ([facility]-PB) Not Detected Not Detected RSV (Cepheid) NEGATIVE Negative Nov 13, 2023 06:00 PM [facility] APTT Specimen Type: PLASMA No comment entered. Ordering Provider: CYRUS EVANS Report Released Date/Time: Nov 13, 2023 03:21 PM Reporting Lab: [facility] [address] [facility] [address] Performing Lab: [facility] [address] [place] [phone] APTT 33.7 s 26.7-39.9 Nov 13, 2023 06:00 PM [facility] PT/INR NEW ([facility]) Specimen Type: PLASMA No comment entered. Ordering Provider: CYRUS EVANS Report Released Date/Time: Nov 13, 2023 03:21 PM Reporting Lab: [facility] [address] [facility] [address] Performing Lab: [facility] [address] [place] [phone] PROTIME 12.7 s H 9.4-12.5 INR VALUE 1.1 {INR} Nov 13, 2023 04:59 PM [facility] URINALYSIS W/ CX REFLEX ([facility]) Specimen Type: URINE No comment entered. Ordering Provider: CYRUS EVANS Report Released Date/Time: Nov 13, 2023 03:12 PM Reporting Lab: [facility] [address] [facility] [address] Performing Lab: [facility] [address] [place] [phone] URINE COLOR Yellow Yellow U.BILIRUBIN Negative mg/dL [...] 1.005-1.02 9 Nov 13, 2023 02:20 PM [facility] TROPONIN I Specimen Type: PLASMA Comment: No hemolysis noted. Ordering Provider: CYRUS EVANS Report Released Date/Time: Nov 13, 2023 02:14 PM Reporting Lab: [address] [address] Performing Lab: [address] [address] TROPONIN I 0.044 ng/mL H 0-0.033 Nov 13, 2023 02:20 PM [facility] COMPREHENSIVE METABOLIC PANEL Specimen Type: PLASMA Comment: No hemolysis noted. Ordering Provider: CYRUS EVANS Report Released Date/Time: Nov 13, 2023 02:14 PM Reporting Lab: [address] [address] Performing Lab: [address] [address] CREATININE 1.17 mg/dL 0.7-1.3 UREA NITROGEN 12.7 [...] 60.3 >60 Nov 13, 2023 02:20 PM [facility] CBC Specimen Type: BLOOD No comment entered. Ordering Provider: CYRUS EVANS Report Released Date/Time: Nov 13, 2023 02:14 PM Reporting Lab: [facility] [address] [facility] [address] Performing Lab: [facility] [address] [facility] [address] WBC 12.5 10*3/uL H 3.6-11.2 RBC 4.21 [...] and tobacco- related health factors from the [place] facility where the Encounter took place. Current Smoking Status This section includes the most current smoking, or tobacco-related health factor, from the [place] facility where the Encounter took place. Date/Time Current Smoking Status Comment Dena sarkar Nov 14, 2023 01:18 AM ORYX ADMIT TOBACCO SCREEN NO [facility] Tobacco Use History This section includes a history of the smoking, or tobacco-related health factors, that were collected on or before the date of the Encounter. The data comes from the [place] facility where the Encounter took place. Date/Time Smoking Status/Tobacco Use Comment F acility Aug 04, 2022 11:30 AM VA-TOBACCO NEVER USED [facility] Mar 11, 2021 10:30 AM VA-TOBACCO FORMER USER [facility] Mar 11, 2021 10:30 AM VA-TOBACCO QUIT 15 YRS OR MORE [facility] Apr 19, 2018 09:07 AM VA-TOBACCO FORMER USER [facility] Apr 19, 2018 09:07 AM VA-TOBACCO QUIT 15 YRS OR MORE [facility] Jul 24, 2017 08:16 AM QUIT TOBACCO >7 YEARS AGO [facility] Apr 16, 2017 12:43 PM QUIT TOBACCO >7 YEARS AGO [facility] Feb 01, 2017 11:47 AM LIFETIME NON-USER OF TOBACCO [facility] Nov 15, 2016 09:00 AM QUIT TOBACCO >7 YEARS AGO [facility] September 11, 2016 06:27 PM QUIT TOBACCO >7 YEARS AGO [facility] Dec 09, 2015 10:17 AM QUIT TOBACCO >7 YEARS AGO [facility] Jan 05, 2015 08:22 AM CURRENT TOBACCO USER [facility] Jan 05, 2015 08:22 AM TOBACCO MEDS OFFER ED BUT DECLINED [facility] Mar 18, 2014 10:40 AM CURRENT TOBACCO USER [facility] Mar 18, 2014 10:40 AM TOBACCO MEDS OFFER ED BUT DECLINED [facility] Nov 04, 2013 09:40 AM CURRENT TOBACCO USER [facility] Nov 26, 2012 08:10 AM QUIT TOBACCO >7 YEARS AGO [facility] May 03, 2009 08:45 AM QUIT TOBACCO >7 YEARS AGO [facility] Jul 06, 2008 08:46 AM CURRENT TOBACCO USER [facility] Jul 25, 2007 12:30 PM QUIT TOBACCO >12 M O & <7 YRS AGO [facility] Jun 07, 2006 09:21 AM CURRENT TOBACCO USER [facility] Jun 07, 2006 09:21 AM TOBACCO [facility] Aug 25, 2005 11:01 AM CURRENT TOBACCO USER [facility] Aug 25, 2005 11:01 AM TOBACCO CONTEMPLATION STAGE [facility] Oct 25, 2004 10:18 AM CURRENT NON-TOBACC O USER-HX OF USE [facility] Oct 25, 2004 10:18 AM TOBACCO TERMINATION STAGE [facility] Aug 24, 2003 10:43 AM CURRENT NON-TOBACC O USER-HX OF USE [facility] Aug 24, 2003 10:43 AM TOBACCO TERMINATION STAGE [facility] Aug 05, 2002 09:55 AM CURRENT NON-TOBACC O USER-HX OF USE QUIT [facility] Apr 15, 2001 08:28 AM CURRENT NON-TOBACC O USER-HX OF USE quit in 1979 [facility] Advance Directives: All historical and current Section Date Range: From patient's date of to the date document was created. This section includes ALL of a patient's completed or amended [place] Advance and Rescinded Directives. The entries below indicate that a directive exists for the patient, but an actual copy is not included with this document. The data comes from all [place] facilities. Date Advance Directives Provider Source Oct 19, 2023 ADVANCE DIRECTIVE WANG MURILLO [facility] Dec 12, 2022 RESCINDED ADVANCE DIRECTIVE JITENDRA MEADOWS [facility] September 12, 2016 ADVANCE DIRECTIVE DISCUSSION YVETTE MEADOWS [facility] Radiology Reports: +/- 30 days of the [...] the Encounter. The data comes from all [place] treatment facilities. Date/Time Radiology Report Provider Source Nov 23, 2023 09:03 AM NM MYOCARDIAL P SPECT STRESS/REST-P: JESUS CASTILLO [id number] -[id number] M Exm Date: NOV 23, 2023@09:03 Req Phys: MEAGHAN QUINTEROS Loc: [facility]-PC TM-C SAME DAY CLINIC (Re Img Loc: [facility]-NUCLEAR MEDICINE Service: Unknown [facility] [address] [place] [address] (Case [id number] COMPLETE) NM MYOCARDIAL PERF SPECT STRESS/R(NM Detailed) CPT:33449 Reason for Study: CHEST PAIN, ASSESS SUSPECTED [...] 23, 2023 Date Verified: NOV 23, 2023 Cigarette Machine Operator E-Sig:/ES/AGUSTO LIPSCOMB Report: PATIENT NAME: JESUS CASTILLO CASE #: [id number], [id number], [id number], [id number], [id number] EXAMINATION: Rest/Lexiscan Stress Gated SPECT Myocardial Imaging [...] code: 1000. Dictated by Rik Brand MD (Cloth Examiner Machine), Rodney Smith MD (Cloth Examiner Machine) IAgusto, have reviewed the images and report and concur with these findings. Primary Interpreting Staff: AGUSTO LIPSCOMB, RADIOLOGIST (Cigarette Machine Operator) Primary Interpreting Resident: RIK BRAND MD, BOUFFANT CURTAIN MACHINE TENDER /[facility] AGUSTO LIPSCOMB [facility] Nov 13, 2023 04:[address] HEAD W/O CONT: JESUS CASTILLO [id number] -[id number] M Ex Date: NOV 13, 2023@16:07 Req Phys: CYRUS EVANS Loc: [facility]-EMERGENCY DEPT 2ND SHIFT (R Img Loc: [facility]-CT IMAGING [facility] Service: Unknown [facility] [address] [place] [address] (Case [id number] COMPLETE) CT HEAD W/O CONT (CT Detailed) CPT:19183 Reason for Study: confusion Clinical History: Responsible Attending: cyrus evans Attending Contact Number: [phone] Resident Contact Number: Allergies listed in CPRS chart: Patient has answered NKA Creatinine: CREATININE 1.17 mg/dL 11/13/2023 14:20 /eGFR: STL EGFR (within one year). CREATININE 1.17 mg/dL (11/13/23 14:20) Wt: 189.3 lb [85.87 kg] (10/18/2023 10:32) History of: Renal failure, chronic or acute renal disease: NO Report Status: Verified Date Reported: NOV 13, 2023 Date Verified: NOV 13, 2023 Cigarette Machine Operator E-Sig: Report: CT HEAD W/O CONT HISTORY: confusion COMPARISON: CT head 06/11/2019 TECHNIQUE: Contiguous axial CT images from the level of the skull base through the skull apex, performed at the local [place] facility. 269 images were received by the [place] National Teleradiology Program (NTP) for interpretation. RADIATION [...] clinical concern, consider MRI. READING PHYSICIAN: Anjum [id number] 11/13/2023 15:14 PDT [facility] National Teleradiology Program [phone] (For Medical Practitioner Use Only) Attention Patients / Veterans: If you have questions or concerns about these test results, please contact your ordering provider or primary care team. Primary Interpreting Staff: RADIOLOGY,OUTSIDE SERVICE, Staff Physician / RADIOLOGY,OUTSIDE SERVICE [facility] Nov 13, 2023 03:59 PM CHEST X-RAY, 2 VIEWS: JESUS CASTILLO [id number] -[id number] M Exm Date: NOV 13, 2023@15:59 Req Phys: CYRUS EVANS Loc: [facility]-EMERGENCY DEPT 2ND SHIFT (R Img Loc: [facility]-MAIN RADIOLOGY SUITE Service: [facility] [address] [place] [address] (Case [id number] COMPLETE) CHEST X-RAY, 2 VIEWS (RAD Detailed) CPT:89540 Reason for Study: chest pain Clinical History: Report Status: Verified Date Reported: NOV 13, 2023 Date Verified: NOV 13, 2023 Cigarette Machine Operator E-Sig:/ES/AGUSTO LIPSCOMB Report: INDICATION: chest pain COMPARISON: None TECHNIQUE: Chest 2 views Impression: No large pleural effusion or sizable pneumothorax. No new focal consolidation. Unchanged cardiomediastinal silhouette. Primary Interpreting Staff: AUGSTO LIPSCOMB, RADIOLOGIST (Cigarette Machine Operator) /AGUSTO [place] [facility] Pathology Reports: +/- 30 days of [...] the Encounter. The data comes from all [place] treatment facilities. Date/Time Pathology Report Provider Source Nov 13, 2023 06:10 PM LR MICROBIOLOGY RE PORT: Accession [UID]: [id number] [[id number]] Received: Nov 13, 2023@18:22 Collection sample: B [...] --=--=--=--=--=--=-- Performing Laboratory: Bacteriology Report Performed By: [facility] [address] CLIA# [id number] [address] DIVISION Nov 13, 2023 06:05 PM LR MICROBIOLOGY RE PORT: Accession [UID]: [id number] [[id number]] Received: Nov 13, 2023@18:23 Collection sample: B [...] --=--=--=--=--=--=-- Performing Laboratory: Bacteriology Report Performed By: [facility] [address] [place] [address] CLIA# [id number] [address] DIVISION Encounter Notes: All associated encounter notes This section contains the clinical notes associated to the Encounter. Date/Time Encounter Note(s) Provider Source Nov 19, 2023 08:03 AM PHYSICIAN LETTERS: LOCAL TITLE: NO SHOW LETTER STL STANDARD TITLE: PHYSICIAN LETTERS DATE OF NOTE: NOV 19, 2023@08:03 ENTRY DATE: NOV 19, 2023@08:03:19 AUTHOR: CHARLIE ROOT COSIGNER: URGENCY: STATUS: COMPLETED [facility] [address] [place] [address] NOV 19, 2023 JESUS CASTILLO [address] [place] [id number] Dear Jesus Castillo, Thank you for choosing the [facility] as your primary choice for health care. As a partner in your health care, we are attempting to contact you because our records indicate that you did not make it to your scheduled appointment, and we would like to re-schedule. Please call us at [phone], extension [phone] to speak to us regarding making an appointment in the [facility]-PACT PHONE TEAM C6 RN clinic. Your good health is important to us. Please contact us as soon as possible to reschedule your appointment so we can keep your current referral, or to let us know the appointment is no longer needed. If we do not hear back from you within two weeks, we will assume the appointment is not needed at this time. IMPORTANT: Due to COVID-19 we have greatly expanded our telehealth options, please contact the clinic to inquire about scheduling. Sincerely, CHARLIE ROOT ADVANCED PRODUCT DEVELOPMENT ENGINEER JESUS CASTILLO [facility]
--- OUTSIDE RECORDS SUMMARY | 2024-05-17 21:51 | XMS_ITS ---
Author Name [facility] [place] [facility] [place] [facility] [place] [facility] [place] Address [address] [place] [address] Care Team Providers Care Maintenance Repairer Name Role Phone MEAGHAN QUINTEROS Primary Care [...] PART B Aug 12, 2001 PART B [id number] [phone] JESUS ABRAHAM PATIENT MEDICARE (WNR) MEDICARE (M) PART A Aug 12, 2001 PART A [id number] TOBIDANAYJESUS BUTT PATIENT Selected Encounter This section includes the information on record at [place] for the Encounter. 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 Date/Time Primary/Secondary Diagnosis Diagnosis Name Provider Source Nov 16, 2023 08:00 AM PRIMARY Spiritual or quaker counseling MACARIO MADSEN [facility] Plan of Treatment: Future Appointments (+ 6 months) and Future Tests (+/- 45 days) The Plan of Treatment section includes future care activities for the patient from all [facility]. This section includes future appointments and future orders which are active, pending or scheduled. Future Appointments This section includes appointments that were scheduled to occur 6 months from the date of the Encounter, up to a maximum of 20 appointments. The data comes from all [facility]. Appointment Date/Time Appointment Type Appointme nt Facility Name Nov 23, 2023 09:00 AM AMBULATORY - MEDICINE [facility] Nov 23, 2023 10:00 AM AMBULATORY - MEDICINE [facility] Nov 23, 2023 11:30 AM AMBULATORY MEDICINE [facility] Dec 24, 2023 02:45 PM AMBULATORY - SURGERY [facility] Jan 01, 2024 02:00 PM AMBULATORY - REHAB MEDICIN E [facility] Feb 29, 2024 01:30 PM AMBULATORY - MEDICINE [facility] Mar 03, 2024 09:15 AM AMBULATORY - MEDICINE [facility] Mar 08, 2024 01:30 PM AMBULATORY - MEDICINE [facility] Mar 10, 2024 12:45 PM AMBULATORY - SURGERY [facility] Apr 16, 2024 11:00 AM AMBULATORY - REHAB [facility] May 15, 2024 11:00 AM AMBULATORY - SURGERY [facility] Active, Pending, and Scheduled Orders This section includes a listing of several types of active, pending, and scheduled orders, including clinic medications orders, diagnostic test orders, procedure orders and consult orders; where the start date of the order is 45 days before the date of the Encounter or 45 days after the date of theEncounter. The data comes from all [facility]. Test Date/Time Test Type Test Details Facility Name Nov 13, 2023 09:10 PM Laboratory - Chemi stry Order MRSA SURVL NARES DNA NARES WC [facility] Nov 21, 2023 12:00 AM Laboratory - Chemi stry Order HGA1C BLOOD SP [facility] Nov 21, 2023 12:00 AM Laboratory - Chemi stry Order VITAMIN D, 25-HYDROXY GOLD/RED SST SERUM SP [facility] Lab Results: +/- 30 days [...] Range Comment Nov 14, 2023 05:33 AM [facility] TSH W/ REFLEX FT4 (STL) Specimen Type: PLASMA No comment entered. Ordering Provider: NAYLA DUNN Report Released Date/Time: Nov 14, 2023 04:23 AM Reporting Lab: [facility] [address] [place] [phone] Performing Lab: [facility] [address] [place] [phone] TSH 3.546 u[IU]/mL 0.47-5 Nov 14, 2023 05:33 AM [facility] PHOSPHOROUS Specimen Type: PLASMA Comment: No hemolysis noted. Ordering Provider: NAYLA DUNN Report Released Date/Time: Nov 14, 2023 04:23 AM Reporting Lab: [facility] [address] [facility] [address] Performing Lab: [facility] [address] [facility] [address] PHOSPHOROUS 2.9 mg/dL 2.3-4.7 Nov 14, 2023 05:33 AM [facility] MAGNESIUM Specimen Type: PLASMA Comment: No hemolysis noted. Ordering Provider: NAYLA DUNN Report Released Date/Time: Nov 14, 2023 04:23 AM Reporting Lab: [facility] [address] [facility] [address] Performing Lab: [facility] [address] [place] [phone] MAGNESIUM 2.1 mg/dL 1.6-2.6 Nov 14, 2023 05:33 AM [facility] BASIC METABOLIC PANEL Specimen Type: PLASMA Comment: No hemolysis noted. Ordering Provider: NAYLA DUNN Report Released Date/Time: Nov 14, 2023 04:23 AM Reporting Lab: [address] [address] Performing Lab: [address] [address] CREATININE 0.78 mg/dL 0.7-1.3 UREA NITROGEN 12.0 mg/dL 9.0-25.0 GLUCOSE 83 mg/dL 72-99 SODIUM 136 meq/L 136-145 POTASSIUM 4.4 meq/L 3.5-5 CHLORIDE 103 meq/L 98-107 CARBON DIOXIDE 26 meq/L 22-31 CALCIUM 8.8 mg/dL 8.4-10.4 EGFR (CKD-EPI 2020) 86.3 >60 Nov 14, 2023 05:33 AM [facility] CBC Specimen Type: BLOOD Comment: Manual diff performed on 11/13/23 Ordering Provider: NAYLA DUNN Report Released Date/Time: Nov 14, 2023 04:23 AM Reporting Lab: [address] [address] Performing Lab: [address] [address] WBC 12.8 10*3/uL H 3.6-11.2 RBC 3.87 [...] 10*3/uL 0.00-0.20 Nov 14, 2023 01:30 AM [facility] TROPONIN I Specimen Type: PLASMA No comment entered. Ordering Provider: NAYLA DUNN Report Released Date/Time: Nov 14, 2023 01:10 AM Reporting Lab: [address] [address] Performing Lab: [address] [address] TROPONIN I 0.044 ng/mL H 0-0.033 Nov 13, 2023 10:00 PM [facility] MRSA SURVL NARES DNA Specimen [...] Nov 13, 2023 09:10 PM Reporting Lab: [address] [address] Performing Lab: [address] [address] MRSA SURVL NARES DNA Negative Negative Nov 13, 2023 07:10 PM [facility] TROPONIN I Specimen Type: PLASMA No comment entered. Ordering Provider: CYRUS EVANS Report Released Date/Time: Nov 13, 2023 06:56 PM Reporting Lab: [address] [address] Performing Lab: [facility] [address] [facility] [address] TROPONIN I 0.045 ng/mL H 0-0.033 Nov 13, 2023 06:20 PM [facility] BLOOD GAS PANEL ABG ([facility]) Specimen Type: VENOUS BLOOD Comment: Test Performed by: [id number] Meter #: [id number] Ordering Provider: CYRUS EVANS Report Released Date/Time: Nov 13, 2023 06:20 PM Reporting Lab: [facility] [address] [facility] [address] Performing Lab: [address] [address] GEM PH 7.38 7.31-7.41 GEM PCO2 52 [...] TEMP 37.0 Nov 13, 2023 06:15 PM [facility] COVID-19 DIAGNOSTIC (FLU/RSV)([facility]) Specimen Type: NASOPHARYNX Comment: Qualitative real-time [...] Nov 13, 2023 03:21 PM Reporting Lab: [facility] [address] [place] [phone] Performing Lab: [facility] [address] [place] [phone] INFLUENZA A Negative Negative INFLUENZA B Negative Negative COVID-19 (STL-PB) Not Detected Not Detected RSV (Cepheid) NEGATIVE Negative Nov 13, 2023 06:00 PM [facility] APTT Specimen Type: PLASMA No comment entered. Ordering Provider: CYRUS EVANS Report Released Date/Time: Nov 13, 2023 03:21 PM Reporting Lab: [address] [address] Performing Lab: [address] [address] APTT 33.7 s 26.7-39.9 Nov 13, 2023 06:00 PM [facility] PT/INR NEW (L-TX) Specimen Type: PLASMA No comment entered. Ordering Provider: CYRUS EVANS Report Released Date/Time: Nov 13, 2023 03:21 PM Reporting Lab: [address] [address] Performing Lab: [address] [address] PROTIME 12.7 s H 9.4-12.5 INR VALUE 1.1 {INR} Nov 13, 2023 04:59 PM [facility] URINALYSIS W/ CX REFLEX (L-PB) Specimen Type: URINE No comment entered. Ordering Provider: CYRUS EVANS Report Released Date/Time: Nov 13, 2023 03:12 PM Reporting Lab: [address] [address] Performing Lab: [address] [address] URINE COLOR Yellow Yellow U.BILIRUBIN Negative mg/dL [...] 1.005-1.02 9 Nov 13, 2023 02:20 PM [facility] TROPONIN I Specimen Type: PLASMA Comment: No hemolysis noted. Ordering Provider: CYRUS EVANS Report Released Date/Time: Nov 13, 2023 02:14 PM Reporting Lab: [facility] [address] [facility] [address] Performing Lab: [address] [address] TROPONIN I 0.044 ng/mL H 0-0.033 Nov 13, 2023 02:20 PM [facility] COMPREHENSIVE METABOLIC PANEL Specimen Type: PLASMA Comment: No hemolysis noted. Ordering Provider: CYRUS EVANS Report Released Date/Time: Nov 13, 2023 02:14 PM Reporting Lab: [facility] [address] [facility] [address] Performing Lab: [place] [id number] [facility] [address] CREATININE 1.17 mg/dL 0.7-1.3 UREA NITROGEN 12.7 [...] 60.3 >60 Nov 13, 2023 02:20 PM [facility] CBC Specimen Type: BLOOD No comment entered. Ordering Provider: CYRUS EVANS Report Released Date/Time: Nov 13, 2023 02:14 PM Reporting Lab: [facility] [address] [facility] [address] Performing Lab: [facility] [address] [facility] [address] WBC 12.5 10*3/uL H 3.6-11.2 RBC 4.21 [...] Source Nov 14, 2023 09:15 AM 0 [facility] Nov 14, 2023 08:10 AM 98.4 70 119/62 18 95 [facility] Nov 14, 2023 06:10 AM 97 66 121/70 18 96 0 [facility] Nov 14, 2023 12:51 AM 0 [facility] Social History: Smoking Status [...] Current Smoking Status Comment Dena ity Nov 14, 2023 01:18 AM ORYX ADMIT TOBACCO SCREEN NO [facility] Tobacco Use History This section includes a history of the smoking, or tobacco-related health factors, that were collected on or before the date of the Encounter. The data comes from the [place] facility where the Encounter took place. Date/Time Smoking Status/Tobacco Use Comment F acility Aug 04, 2022 11:30 AM VA-TOBACCO NEVER USED [facility] Mar 11, 2021 10:30 AM VA-TOBACCO FORMER USER [facility] Mar 11, 2021 10:30 AM VA-TOBACCO QUIT 15 YRS OR MORE [facility] Apr 19, 2018 09:07 AM VA-TOBACCO FORMER USER [facility] Apr 19, 2018 09:07 AM VA-TOBACCO QUIT 15 YRS OR MORE [facility] Jul 24, 2017 08:16 AM QUIT TOBACCO >7 YEARS AGO [facility] Apr 16, 2017 12:43 PM QUIT TOBACCO >7 YEARS AGO [facility] Feb 01, 2017 11:47 AM LIFETIME NON-USER OF TOBACCO [facility] Nov 15, 2016 09:00 AM QUIT TOBACCO >7 YEARS AGO [facility] September 11, 2016 06:27 PM QUIT TOBACCO >7 YEARS AGO [facility] Dec 09, 2015 10:17 AM QUIT TOBACCO >7 YEARS AGO [facility] Jan 05, 2015 08:22 AM CURRENT TOBACCO USER [facility] Jan 05, 2015 08:22 AM TOBACCO MEDS OFFER ED BUT DECLINED [facility] Mar 18, 2014 10:40 AM CURRENT TOBACCO USER [facility] Mar 18, 2014 10:40 AM TOBACCO MEDS OFFER ED BUT DECLINED [facility] Nov 04, 2013 09:40 AM CURRENT TOBACCO USER [facility] Nov 26, 2012 08:10 AM QUIT TOBACCO >7 YEARS AGO [facility] May 03, 2009 08:45 AM QUIT TOBACCO >7 YEARS AGO [facility] Jul 06, 2008 08:46 AM CURRENT TOBACCO USER [facility] Jul 25, 2007 12:30 PM QUIT TOBACCO >12 M O & <7 YRS AGO [facility] Jun 07, 2006 09:21 AM CURRENT TOBACCO USER [facility] Jun 07, 2006 09:21 [facility] Aug 25, 2005 11:01 AM CURRENT TOBACCO USER [facility] Aug 25, 2005 11:01 AM TOBACCO CONTEMPLATION STAGE [facility] Oct 25, 2004 10:18 AM CURRENT NON-TOBACC O USER-HX OF USE [facility] Oct 25, 2004 10:18 AM TOBACCO TERMINATION STAGE [facility] Aug 24, 2003 10:43 AM CURRENT NON-TOBACC O USER-HX OF USE [facility] Aug 24, 2003 10:43 AM TOBACCO TERMINATION STAGE [facility] Aug 05, 2002 09:55 AM CURRENT NON-TOBACC O USER-HX OF USE QUIT [facility] Apr 15, 2001 08:28 AM CURRENT NON-TOBACC O USER-HX OF USE quit in 1979 [facility] Advance Directives: All historical and current Section Date Range: From patient's date of to the date document was created. This section includes ALL of a patient's completed or amended [place] Advance and Rescinded Directives. The entries below indicate that a directive exists for the patient, but an actual copy is not included with this document. The data comes from all [place] facilities. Date Advance Directives Provider Source Oct 19, 2023 ADVANCE DIRECTIVE WANG MURILLO [facility] Dec 12, 2022 RESCINDED ADVANCE DIRECTIVE JITENDRA MEADOWS [facility] September 12, 2016 ADVANCE DIRECTIVE DISCUSSION YVETTE MEADOWS [facility] Radiology Reports: +/- 30 days [...] the Encounter. The data comes from all [place] treatment facilities. Date/Time Radiology Report Provider Source Nov 23, 2023 09:03 AM NM MYOCARDIAL P SPECT STRESS/REST-P: LEIGHJESUS Lamont [id number] -1935 M Ex Date: NOV 23, 2023@09:03 Req Phys: MEAGHAN QUINTEROS Loc: [facility]-PC TM-C [facility] CLIN[facility] (Re Img Loc: [facility]-NUCLEAR MEDICINE Service: Unknown [address] [address] (Case [id number] COMPLETE) NM MYOCARDIAL PERF SPECT STRESS/R(NM Detailed) CPT:10229 Reason for Study: CHEST PAIN, ASSESS SUSPECTED [...] 23, 2023 Date Verified: NOV 23, 2023 Produce Department Supervisor E-Sig:/ES/AGUSTO LIPSCOMB Report: PATIENT NAME: JESUS ABRAHAM CASE #: [id number], [id number], [id number], [id number], [id number] EXAMINATION: Rest/Lexiscan Stress Gated SPECT Myocardial Imaging [...] code: 1000. Dictated by Rik Brand MD (Regulatory Analyst), Rodney Smith MD (Regulatory Analyst) Agusto Elam, have reviewed the images and report and concur with these findings. Primary Interpreting Staff: AGUSTO LIPSCOMB, RADIOLOGIST (Produce Department Supervisor) Primary Interpreting Resident: RIK BRAND MD, MANAGER UTILIZATION REVIEW /AGUSTO SEN [facility] Nov 13, 2023 04:[address] HEAD W/O CONT: JESUS ABRAHAM [id number] -[id number] M Exm Date: NOV 13, 2023@16:07 Req Phys: CYRUS EVANS Loc: [facility]-EMERGENCY DEPT 2ND SHIFT (R Img Loc: [facility]-CT IMAGING [facility] Service: Unknown [facility], [facility] [address] [place] [address] (Case [id number] COMPLETE) CT HEAD W/O CONT (CT Detailed) CPT:10858 Reason for Study: confusion Clinical History: Responsible Attending: cyrus evans Attending Contact Number: [phone] Resident Contact Number: Allergies listed in CPRS chart: Patient has answered NKA Creatinine: CREATININE 1.17 mg/dL 11/13/2023 14:20 /eGFR: STL EGFR (within one year). CREATININE 1.17 mg/dL (11/13/23 14:20) Wt: 189.3 lb [85.87 kg] (10/18/2023 10:32) History of: Renal failure, chronic or acute renal disease: NO Report Status: Verified Date Reported: NOV 13, 2023 Date Verified: NOV 13, 2023 Produce Department Supervisor E-Sig: Report: CT HEAD W/O CONT HISTORY: confusion COMPARISON: CT head 06/11/2019 TECHNIQUE: Contiguous axial CT images from the level of the skull base through the skull apex, performed at the local [place] facility. 269 images were received by the [place] National Teleradiology Program (NTP) for interpretation. RADIATION [...] clinical concern, consider MRI. READING PHYSICIAN: Anjum Guevara -[phone] 11/13/2023 15:14 PDT [facility] National Teleradiology Program [phone] (For Medical Practitioner Use Only) Attention Patients / Veterans: If you have questions or concerns about these test results, please contact your ordering provider or primary care team. Primary Interpreting Staff: RADIOLOGY,OUTSIDE SERVICE, Staff Physician / RADIOLOGY,OUTSIDE SERVICE [facility] Nov 13, 2023 03:59 PM CHEST X-RAY, 2 VIEWS: JESUS ABRAHAM [id number] -1935 M Exm Date: NOV 13, 2023@15:59 Req Phys: CYRUS EVANS Loc: -EMERGENCY DEPT 2ND SHIFT (R Img Loc: -MAIN RADIOLOGY SUITE Service: [facility], [facility] [address] [place] [address] (Case [id number] COMPLETE) CHEST X-RAY, 2 VIEWS (RAD Detailed) CPT:70446 Reason for Study: chest pain Clinical History: Report Status: Verified Date Reported: NOV 13, 2023 Date Verified: NOV 13, 2023 Produce Department Supervisor E-Sig:/ES/AGUSTO LIPSCOMB Report: INDICATION: chest pain COMPARISON: None TECHNIQUE: Chest 2 views Impression: No large pleural effusion or sizable pneumothorax. No new focal consolidation. Unchanged cardiomediastinal silhouette. Primary Interpreting Staff: AGUSTO LIPSCOMB, RADIOLOGIST (Produce Department Supervisor) /AGUSTO HOOVER [facility] Pathology Reports: +/- 30 days [...] the Encounter. The data comes from all [place] treatment facilities. Date/Time Pathology Report Provider Source Nov 13, 2023 06:10 PM LR MICROBIOLOGY RE PORT: Accession [UID]: [id number] [[id number]] Received: Nov 13, 2023@18:22 Collection sample: B [...] --=--=--=--=--=--=-- Performing Laboratory: Bacteriology Report Performed By: [facility] [address] [place], [place] [address]IA# [id number] 5 [facility] [address] [place] [id number] [place] [address] Nov 13, 2023 06:05 PM LR MICROBIOLOGY RE PORT: Accession [UID]: [facility] [id number] [[id number]] Received: Nov 13, 2023@18:23 Collection sample: B [...] Bacteriology Report Performed By: [facility]# [id number] 915 [facility] [address] [place] [address] [facility] Encounter Notes: All associated encounter notes This section contains the clinical notes associated to the Encounter. Date/Time Encounter Note(s) Provider Source Nov 14, 2023 02:30 PM PASTORAL CARE NOTE : LOCAL TITLE: PASTORAL CARE NOTE STANDARD TITLE: PASTORAL CARE NOTE DATE OF NOTE: NOV 14, 2023@14:30 ENTRY DATE: NOV 16, 2023@07:53:19 AUTHOR: MACARIO MADSEN COSIGNER: URGENCY: STATUS: COMPLETED Pastoral Visit: Initial Care Analyst met with: Eupora, Other: Grandson Location: Patient Room Temple Preference: Hoahaoism Initial Interaction: Introduced self, Informed of outside property agent's availability to discuss condition and concerns, Eupora provided personal history Eupora talked at some length about his service in the [employer] and how much he enjoyed it. Spiritual resources appear: adequate endorsed having a supportive family. Eupora's grandson was present. appeared in good spirits and denied need of any additional spiritual resources. Discussed 's relationship with: family Eupora talked about his kids and grandkids and how they have fared in life. Eupora also mentions some great grandkids. Eupora also said that his of 64 years has health concerns of her own. Discussed 's concerns regarding: medical issues Eupora said he was admitted because of vertigo. Eupora said he has dealt with it before, and his doctors were surprised that it came back. He said he was doing much better and was being discharged. INTERVENTION Offered / accepted: blessing, pastoral support, ministry of presence, spiritual counseling, supportive listening OUTCOMES Eupora's Response: expressed appreciation for the visit Observations: experienced support FOLLOW-UP Eupora discharging. /manuel/ CAROL SALVADORLAIN Signed: 11/16/2023 08:00 MACARIO MADSEN [facility]
--- OUTSIDE RECORDS SUMMARY | 2024-05-17 21:51 | XMS_ITS | Encounter Summary ---
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 Date/Time Encounter Type Encounter Description Reason Provider Source Nov 21, 2023 09:19 AM CASE MANAGEMENT PRIMARY CARE/MEDICINE ICD-10-CM R07.9 Chest pain, unspecified AGUEDA DAWSON Encounter Template Text not used by [place] Assessments - Encounter Diagnoses This section includes the primary and secondary diagnoses documented for the Encounter. Date/Time Primary/Secondary Diagnosis Diagnosis Name Provider Source Nov 21, 2023 09:30 AM PRIMARY Chest pain, unspecified AGUEDA DAWSON [facility] Plan of Treatment: Future Appointments (+ 6 months) and Future Tests (+/- 45 days) The Plan of Treatment section includes future care activities for the patient from all [facility]. This section includes future appointments and future orders which are active, pending or scheduled. Future Appointments This section includes appointments that were scheduled to occur 6 months from the date of the Encounter, up to a maximum of 20 appointments. The data comes from all [facility]. Appointment Date/Time Appointment Type Appointme nt Facility Name Nov 23, 2023 09:00 AM AMBULATORY - MEDICINE [facility] Nov 23, 2023 10:00 AM AMBULATORY - MEDICINE [facility] Nov 23, 2023 11:30 AM AMBULATORY MEDICINE [facility] Dec 24, 2023 02:45 PM AMBULATORY - SURGERY [facility] Jan 01, 2024 02:00 PM AMBULATORY - REHAB MEDICIN E [facility] Feb 29, 2024 01:30 PM AMBULATORY - MEDICINE [facility] Mar 03, 2024 09:15 AM AMBULATORY - MEDICINE [facility] Mar 08, 2024 01:30 PM AMBULATORY - MEDICINE [facility] Mar 10, 2024 12:45 PM AMBULATORY - SURGERY [facility] Apr 16, 2024 11:00 AM AMBULATORY - REHAB [facility] May 15, 2024 11:00 AM AMBULATORY - SURGERY [facility] Active, Pending, and Scheduled Orders This section includes a listing of several types of active, pending, and scheduled orders, including clinic medications orders, diagnostic test orders, procedure orders and consult orders; where the start date of the order is 45 days before the date of the Encounter or 45 days after the date of theEncounter. The data comes from all [facility]. Test Date/Time Test Type Test Details Facility Name Nov 13, 2023 09:10 PM Laboratory - Chemi stry Order MRSA SURVL NARES DNA NARES WC [facility] Nov 21, 2023 12:00 AM Laboratory - Chemi stry Order HGA1C BLOOD SP [facility] Nov 21, 2023 12:00 AM Laboratory - Chemi stry Order VITAMIN D, 25-HYDROXY GOLD/RED SST SERUM SP [facility] Lab Results: +/- 30 days of the encounter This section includes the Chemistry and Hematology Lab Results on record with [place] for the patient. Radiology Reports and Pathology [...] Nov 14, 2023 04:23 AM Reporting Lab: [facility] [address] [facility] [address] Performing Lab: [address] [address] TSH 3.546 u[IU]/mL 0.47-5 Nov 14, 2023 05:33 AM [facility] PHOSPHOROUS Specimen Type: PLASMA Comment: No hemolysis noted. Ordering Provider: NAYLA DUNN Report Released Date/Time: Nov 14, 2023 04:23 AM Reporting Lab: [facility] [address] [facility] [address] Performing Lab: [facility] [address] [place] [phone] PHOSPHOROUS 2.9 mg/dL 2.3-4.7 Nov 14, 2023 05:33 AM [facility] MAGNESIUM Specimen Type: PLASMA Comment: No hemolysis noted. Ordering Provider: NAYLA DUNN Report Released Date/Time: Nov 14, 2023 04:23 AM Reporting Lab: [facility] [address] [place] [phone] Performing Lab: [facility] [address] [place] [phone] MAGNESIUM 2.1 mg/dL 1.6-2.6 Nov 14, 2023 05:33 AM [facility] CBC Specimen Type: BLOOD Comment: Manual diff performed on 11/13/23 Ordering Provider: NAYLA DUNN Report Released Date/Time: Nov 14, 2023 04:23 AM Reporting Lab: [address] [address] Performing Lab: [address] [address] WBC 12.8 10*3/uL H 3.6-11.2 RBC 3.87 [...] Nov 14, 2023 04:23 AM Reporting Lab: [place] [id number] [facility] [address] Performing Lab: [address] [address] CREATININE 0.78 mg/dL 0.7-1.3 UREA NITROGEN 12.0 [...] Nov 14, 2023 01:10 AM Reporting Lab: [facility] [address] [facility] [address] Performing Lab: [address] [address] TROPONIN I 0.044 ng/mL H 0-0.033 Nov [...] Nov 13, 2023 09:10 PM Reporting Lab: [facility] [address] [facility] [address] Performing Lab: [address] [address] MRSA SURVL NARES DNA Negative Negative Nov 13, 2023 07:10 PM [facility] TROPONIN I Specimen Type: PLASMA No comment entered. Ordering Provider: CYRUS EVANS Report Released Date/Time: Nov 13, 2023 06:56 PM Reporting Lab: [facility] [address] [place] [phone] Performing Lab: [facility] [address] [facility] [address] TROPONIN I 0.045 ng/mL H 0-0.033 Nov 13, 2023 06:20 PM [facility] BLOOD GAS PANEL ABG ([facility]) Specimen Type: VENOUS BLOOD Comment: Test Performed by: [id number] Meter #: [id number] Ordering Provider: CYRUS EVANS Report Released Date/Time: Nov 13, 2023 06:20 PM Reporting Lab: [facility] [address] [facility] [address] Performing Lab: [place] [address] [facility] [address] GEM PH 7.38 7.31-7.41 GEM PCO2 52 [...] PM [facility] COVID-19 DIAGNOSTIC (FLU/RSV)([facility]) Specimen Type: NASOPHARYNX Comment: Qualitative real-time PCR [...] Reporting Lab: [facility] [address] [facility] [address] Performing Lab: [facility] [address] [place] [phone] INFLUENZA A Negative Negative INFLUENZA B Negative Negative COVID-19 (STL-PB) Not Detected Not Detected RSV (Cepheid) NEGATIVE Negative Nov 13, 2023 06:00 PM [facility] APTT Specimen Type: PLASMA No comment entered. Ordering Provider: CYRUS EVANS Report Released Date/Time: Nov 13, 2023 03:21 PM Reporting Lab: [facility] [address] [place] [phone] Performing Lab: [address] [address] APTT 33.7 s 26.7-39.9 Nov 13, 2023 06:00 PM [facility] PT/INR NEW (L-MA) Specimen Type: PLASMA No comment entered. Ordering Provider: CYRUS EVANS Report Released Date/Time: Nov 13, 2023 03:21 PM Reporting Lab: [facility] [address] [place] [phone] Performing Lab: [facility] [address] [place] [phone] PROTIME 12.7 s H 9.4-12.5 INR VALUE 1.1 {INR} Nov 13, 2023 04:59 PM [facility] URINALYSIS W/ CX REFLEX (L-PB) Specimen Type: URINE No comment entered. Ordering Provider: CYRUS EVANS Report Released Date/Time: Nov 13, 2023 03:12 PM Reporting Lab: [facility] [address] [place] [phone] Performing Lab: [facility] [address] [place] [phone] URINE COLOR Yellow Yellow U.BILIRUBIN Negative mg/dL [...] Reporting Lab: [facility] [address] [facility] [address] Performing Lab: [address] [address] TROPONIN I 0.044 ng/mL H 0-0.033 Nov 13, 2023 02:20 PM [facility] COMPREHENSIVE METABOLIC PANEL Specimen Type: PLASMA Comment: No hemolysis noted. Ordering Provider: CYRUS EVANS Report Released Date/Time: Nov 13, 2023 02:14 PM Reporting Lab: [place] [address] [facility] [address] Performing Lab: [address] [address] CREATININE 1.17 mg/dL 0.7-1.3 UREA NITROGEN 12.7 [...] >60 Nov 13, 2023 02:20 PM [facility] CBC Specimen Type: BLOOD No comment entered. Ordering Provider: CYRUS EVANS Report Released Date/Time: Nov 13, 2023 02:14 PM Reporting Lab: [facility] [address] [facility] [address] Performing Lab: [facility] [address] [facility] [address] WBC 12.5 10*3/uL H 3.6-11.2 RBC 4.21 [...] and tobacco- related health factors from the [place] facility where the Encounter took place. Current Smoking Status This section includes the most current smoking, or tobacco-related health factor, from the [place] facility where the Encounter took place. Date/Time Current Smoking Status Comment Dena ity Nov 14, 2023 01:18 AM ORYX ADMIT TOBACCO SCREEN NO [facility] Tobacco Use History This section includes a history of the smoking, or tobacco-related health factors, that were collected on or before the date of the Encounter. The data comes from the [place] facility where the Encounter took place. Date/Time Smoking Status/Tobacco Use Comment Lynnette acility Aug 04, 2022 11:30 AM VA-TOBACCO [...] TOBACCO [facility]MO[facility] Aug [...] ALL of a patient's completed or amended [place] Advance and Rescinded Directives. The entries below indicate that a directive exists for the patient, but an actual copy is not included with this document. The data comes from all [place] facilities. Date Advance Directives Provider Source Oct [...] the Encounter. The data comes from all [place] treatment facilities. Date/Time Radiology Report Provider Source Nov 23, 2023 09:03 AM NM MYOCARDIAL P SPECT STRESS/REST-P: JESUS ABRAHAM [id number] -[id number] M Exm Date: NOV 23, 2023@09:03 Req Phys: MEAGHAN QUINTEROS Loc: [facility]-PC TM-C SAME DAY CLINIC (Re Img Loc: [facility]-NUCLEAR MEDICINE Service: Unknown [facility] [address] [place] [address] (Case [id number] COMPLETE) NM MYOCARDIAL PERF SPECT STRESS/R(NM Detailed) CPT:61244 Reason for Study: CHEST PAIN, ASSESS SUSPECTED [...] 23, 2023 Date Verified: NOV 23, 2023 Global Program Director E-Sig:/ES/AGUSTO LIPSCOMB Report: PATIENT NAME: JESUS ABRAHAM CASE #: [id number], [id number], [id number], [id number], [id number] EXAMINATION: Rest/Lexiscan Stress Gated SPECT Myocardial Imaging [...] code: 1000. Dictated by Rik Brand MD (Etcher Enameling), Rodney Smith MD (Etcher Enameling) IAgusto, have reviewed the images and report and concur with these findings. Primary Interpreting Staff: AGUSTO LIPSCOMB, RADIOLOGIST (Global Program Director) Primary Interpreting Resident: RIK BRAND MD, CLERICAL ADMINISTRATOR /AGUSTO SEN [facility] Nov 13, 2023 04:[address] HEAD W/O CONT: LEIHGJESUS Lamont [id number] -[address] [facility] Date: NOV 13, 2023@16:07 Req Phys: CYRUS EVANS Loc: [facility]-EMERGENCY DEPT 2ND SHIFT (R Img Loc: [facility]-CT IMAGING [facility] Service: Unknown [facility] [address] [place] [address] (Case [id number] COMPLETE) CT HEAD W/O CONT (CT Detailed) CPT:69425 Reason for Study: confusion Clinical History: Responsible Attending: cyrus evans Attending Contact Number: [phone] Resident Contact Number: Allergies listed in CPRS chart: Patient has answered NKA Creatinine: CREATININE 1.17 mg/dL 11/13/2023 14:20 /eGFR: STL EGFR (within one year). CREATININE 1.17 mg/dL (11/13/23 14:20) Wt: 189.3 lb [85.87 kg] (10/18/2023 10:32) History of: Renal failure, chronic or acute renal disease: NO Report Status: Verified Date Reported: NOV 13, 2023 Date Verified: NOV 13, 2023 Global Program Director E-Sig: Report: CT HEAD W/O CONT HISTORY: confusion COMPARISON: CT head 06/11/2019 TECHNIQUE: Contiguous axial CT images from the level of the skull base through the skull apex, performed at the local [place] facility. 269 images were received by the [place] National Teleradiology Program (NTP) for interpretation. RADIATION [...] clinical concern, consider MRI. READING PHYSICIAN: Anjum [phone] 11/13/2023 15:14 PDT [facility] National Teleradiology Program [phone] (For Medical Practitioner Use Only) Attention Patients / Veterans: If you have questions or concerns about these test results, please contact your ordering provider or primary care team. Primary Interpreting Staff: RADIOLOGY,OUTSIDE SERVICE, Staff Physician / RADIOLOGY,OUTSIDE SERVICE [facility] Nov 13, 2023 03:59 PM CHEST X-RAY, 2 VIEWS: JESUS ABRAHAM [id number] -1935 M Exm Date: NOV 13, 2023@15:59 Req Phys: CYRUS EVANS Pat Loc: -EMERGENCY DEPT 2ND SHIFT (R Img Loc: -MAIN RADIOLOGY SUITE Service: Unknown [facility] [address] [place] [address] (Case [id number] COMPLETE) CHEST X-RAY, 2 VIEWS (RAD Detailed) CPT:54599 Reason for Study: chest pain Clinical History: Report Status: Verified Date Reported: NOV 13, 2023 Date Verified: NOV 13, 2023 Global Program Director E-Sig:/ES/AGUSTO LIPSCOMB Report: INDICATION: chest pain COMPARISON: None TECHNIQUE: Chest 2 views Impression: No large pleural effusion or sizable pneumothorax. No new focal consolidation. Unchanged cardiomediastinal silhouette. Primary Interpreting Staff: AGUSTO LIPSCOMB, RADIOLOGIST (Global Program Director) /AGUSTO [place] [facility] Pathology Reports: +/- 30 days [...] the Encounter. The data comes from all [place] treatment facilities. Date/Time Pathology Report Provider Source Nov 13, 2023 06:10 PM LR MICROBIOLOGY RE PORT: Accession [UID]: [id number] [[id number]] Received: Nov 13, 2023@18:22 Collection sample: B [...] Bacteriology Report [facility]formed By[facility] [address] [place] [address] CLIA# [id number] [address] [facility] [address] [place] [address] [facility] Nov 13, 2023 06:05 PM LR MICROBIOLOGY RE PORT: Accession [UID]: [id number] [[id number]] Received: Nov 13, 2023@18:23 Collection sample: B [...] Bacteriology Report Performed By: [facility] [address] [facility] CLIA# [id number] [address] [place] [address] [facility] Encounter Notes: All associated encounter notes This section contains the clinical notes associated to the Encounter. Date/Time Encounter Note(s) Provider Source Nov 21, 2023 01:43 PM ADDENDUM: LOCAL TITLE: Addendum STANDARD TITLE: ADDENDUM DATE OF NOTE: NOV 21, 2023@13:43:44 ENTRY DATE: NOV 21, 2023@13:43:45 AUTHOR: MEAGHAN QUINTEROS EXP COSIGNER: URGENCY: STATUS: COMPLETED Reached out to RN FIELD CASE MANAGER Jeannie Parker to assist in providing social support to patient and caregiver/granddaughter after recent hospitalization with negative medical workup and suspected progression of his vascular dementia. /manuel/ MEAGHAN QUINTEROS MD STAFF PHYSICIAN Signed: 11/21/2023 13:44 Receipt Acknowledged By: 11/23/2023 15:05 /manuel/ JOVITA PARKER [facility], [facility], Primary Care --- Original Document --- 11/21/23 POST DISCHARGE CONTACT: Location of Discharge: Hospital Contact attempt: 2nd [place] identified by the following: Full Name Full Social Security Number (SSN) Contact made through telephone call Spoke with someone other than the [place]: Spoke to: Cassandra alston Reason for hospitalization/Emergency Department/Urgent Care visit: Per granddaughter he was dizzy [place]/Caregiver states condition has improved. Symptoms to monitor for health maintenance: CALL YOUR DOCTOR IF YOU HAVE ANY OF THESE PROBLEMS: Cardiovascular Disease (heart problems): Feeling of pressure or pain to the chest, back, jaw, shoulder, or arm, Chest pain not relieved by using nitroglycerin tablets Confirmed no changes made to medications, equipment or supplies. Primary Diagnosis at Discharge: Other Diagnosis: Dizziness, chest pain Follow up Service Referrals: No follow up service needs identified at this time Future Appointments: Informed, discussed and confirmed next scheduled appointments Education Provided: Topic 1: First step in caring for a patient with Chest pain Specific Content: Loosen any tight clothing. Ask if the person takes any chest pain medicine, such as nitroglycerin for a known heart condition, and help them take it. If the pain does not go away promptly with rest or within 3 minutes of taking nitroglycerin, call for emergency medical help. Method: Verbal Provided to: Family/Significant Other Patient understanding of education content: Verbalized understanding Length of time spent: 10 minutes Kevin verbalized understanding of all instructions given during this call. /manuel/ AGUEDA DAWSON Registered Nurse Signed: 11/21/2023 09:30 MEAGHAN QUINTEROS [facility] Nov 21, 2023 09:19 AM PRIMARY CARE NOTE: LOCAL TITLE: POST DISCHARGE CONTACT STANDARD TITLE: PRIMARY CARE NOTE DATE OF NOTE: NOV 21, 2023@09:19 ENTRY DATE: NOV 21, 2023@09:19:59 AUTHOR: AGUEDA DAWSON EXP COSIGNER: URGENCY: STATUS: COMPLETED POST DISCHARGE CONTACT Has ADDENDA Location of Discharge: Hospital Contact attempt: 2nd [place] identified by the following: Full Name Full Social Security Number (SSN) Contact made through telephone call Spoke with someone other than the : Spoke to: Cassandra alston Reason for hospitalization/Emergency Department/Urgent Care visit: Per granddaughter he was dizzy [place]/Caregiver states condition has improved. Symptoms to monitor for health maintenance: CALL YOUR DOCTOR IF YOU HAVE ANY OF THESE PROBLEMS: Cardiovascular Disease (heart problems): Feeling of pressure or pain to the chest, back, jaw, shoulder, or arm, Chest pain not relieved by using nitroglycerin tablets Confirmed no changes made to medications, equipment or supplies. Primary Diagnosis at Discharge: Other Diagnosis: Dizziness, chest pain Follow up Service Referrals: No follow up service needs identified at this time Future Appointments: Informed, discussed and confirmed next scheduled appointments Education Provided: Topic 1: First step in caring for a patient with Chest pain Specific Content: Loosen any tight clothing. Ask if the person takes any chest pain medicine, such as nitroglycerin for a known heart condition, and help them take it. If the pain does not go away promptly with rest or within 3 minutes of taking nitroglycerin, call for emergency medical help. Method: Verbal Provided to: Family/Significant Other Patient understanding of education content: Verbalized understanding Length of time spent: 10 minutes Granddaughter verbalized understanding of all instructions given during this call. /manuel/ AGUEDA DAWSON Registered Nurse Signed: 11/21/2023 09:30 11/21/2023 ADDENDUM STATUS: COMPLETED Reached out to RN FIELD CASE MANAGERRamirez Parker to assist in providing social support to patient and caregiver/granddaughter after recent hospitalization with negative medical workup and suspected progression of his vascular dementia. /manuel/ MEAGHAN QUINTEROS MD STAFF PHYSICIAN Signed: 11/21/2023 13:44 Receipt Acknowledged By: * AWAITING SIGNATURE * JOVITA PARKER TAMMY E [facility]
--- OUTSIDE RECORDS SUMMARY | 2024-05-17 21:51 | XMS_ITS | Encounter Summary ---
Author Name [facility] [place] Organization [facility] [place] Address [address] [place] [address] Care Team Providers Care Mammography Tech Name Role Phone MEAGHAN QUINTEROS Primary Care [...] PART B Aug 12, 2001 PART B [id number] JESUS ABRAHAM PATIENT MEDICARE (WNR) MEDICARE (M) PART A Aug 12, 2001 PART A [id number] [phone] JESUS ABRAHAM PATIENT Selected Encounter This section includes the information on record at [place] for the Encounter. Date/Time Encounter Type Encounter Description Reason Pro vider Source Nov 16, 2023 12:58 PM Outpatient Encounter GENERAL INTERNAL MEDICINE IHE Encounter Template Text not used by [place] Plan of Treatment: Future Appointments (+ 6 [...] 20 appointments. The data comes from all [facility]. Appointment Date/Time Appointment Type Appointme nt Facility Name Nov 23, 2023 09:00 AM AMBULATORY - MEDICINE [facility] Nov 23, 2023 10:00 AM AMBULATORY MEDICINE [facility] Nov 23, 2023 11:30 AM AMBULATORY - MEDICINE [facility] Dec 24, 2023 02:45 PM AMBULATORY - SURGERY [facility] Jan 01, 2024 02:00 PM AMBULATORY - REHAB MEDICIN E [facility] Feb 29, 2024 01:30 PM AMBULATORY - MEDICINE [facility] Mar 03, 2024 09:15 AM AMBULATORY - MEDICINE [facility] Mar 08, 2024 01:30 PM AMBULATORY - MEDICINE [facility] Mar 10, 2024 12:45 PM AMBULATORY - SURGERY [facility] Apr 16, 2024 11:00 AM AMBULATORY - REHAB MEDICIN E [facility] May 15, 2024 11:00 [...] of theEncounter. The data comes from all [facility]. Test Date/Time Test Type Test Details Facility Name Nov 13, 2023 09:10 PM Laboratory - Chemi stry Order MRSA SURVL NARES DNA NARES WC [facility] Nov 21, 2023 12:00 AM Laboratory - Chemi stry Order HGA1C BLOOD SP [facility] Nov 21, 2023 12:00 AM Laboratory - Chemi stry Order VITAMIN D, 25-HYDROXY GOLD/RED SST SERUM SP [facility] Lab Results: +/- 30 [...] Range Comment Nov 14, 2023 05:33 AM [facility] PHOSPHOROUS Specimen Type: PLASMA Comment: No hemolysis noted. Ordering Provider: NAYLA DUNN Report Released Date/Time: Nov 14, 2023 04:23 AM Reporting Lab: [facility] [address] [facility] [address] Performing Lab: [facility] [address] [facility] [address] PHOSPHOROUS 2.9 mg/dL 2.3-4.7 Nov 14, 2023 05:33 AM [facility] TSH W/ REFLEX FT4 (STL) Specimen Type: PLASMA No comment entered. Ordering Provider: NAYLA DUNN Report Released Date/Time: Nov 14, 2023 04:23 AM Reporting Lab: [facility] [address] [facility] [address] Performing Lab: [facility] [address] [facility] [address] TSH 3.546 u[IU]/mL 0.47-5 Nov 14, 2023 05:33 AM [facility] MAGNESIUM Specimen Type: PLASMA Comment: No hemolysis noted. Ordering Provider: NAYLA DUNN Report Released Date/Time: Nov 14, 2023 04:23 AM Reporting Lab: [facility] [address] [facility] [address] Performing Lab: [facility] [address] [facility] [address] MAGNESIUM 2.1 mg/dL 1.6-2.6 Nov 14, 2023 05:33 AM [facility] BASIC METABOLIC PANEL Specimen Type: PLASMA Comment: No hemolysis noted. Ordering Provider: NAYLA DUNN Report Released Date/Time: Nov 14, 2023 04:23 AM Reporting Lab: [facility] [address] [facility] [address] Performing Lab: [address] [address] CREATININE 0.78 mg/dL 0.7-1.3 UREA NITROGEN 12.0 mg/dL 9.0-25.0 GLUCOSE 83 mg/dL 72-99 SODIUM 136 meq/L 136-145 POTASSIUM 4.4 meq/L 3.5-5 CHLORIDE 103 meq/L 98-107 CARBON DIOXIDE 26 meq/L 22-31 CALCIUM 8.8 mg/dL 8.4-10.4 EGFR (CKD-EPI 2020) 86.3 >60 Nov 14, 2023 05:33 AM [facility] CBC Specimen Type: BLOOD Comment: Manual diff performed on 11/13/23 Ordering Provider: NAYLA DUNN Report Released Date/Time: Nov 14, 2023 04:23 AM Reporting Lab: [address] [address] Performing Lab: [address] [address] WBC 12.8 10*3/uL H 3.6-11.2 RBC 3.87 [...] 10*3/uL 0.00-0.20 Nov 14, 2023 01:30 AM [facility] TROPONIN I Specimen Type: PLASMA No comment entered. Ordering Provider: NAYLA DUNN Report Released Date/Time: Nov 14, 2023 01:10 AM Reporting Lab: [facility] [address] [facility] [address] Performing Lab: [facility] [address] [place] [address] TROPONIN I 0.044 ng/mL H 0-0.033 Nov 13, 2023 10:00 PM [facility] MRSA SURVL NARES DNA [...] Nov 13, 2023 09:10 PM Reporting Lab: [facility] [address] [place] [address] Performing Lab: [address] [address] MRSA SURVL NARES DNA Negative Negative Nov 13, 2023 07:10 PM [facility] TROPONIN I Specimen Type: PLASMA No comment entered. Ordering Provider: CYRUS EVANS Report Released Date/Time: Nov 13, 2023 06:56 PM Reporting Lab: [address] [address] Performing Lab: [address] [address] TROPONIN I 0.045 ng/mL H 0-0.033 Nov 13, 2023 06:20 PM [facility] BLOOD GAS PANEL ABG (STL) Specimen Type: VENOUS BLOOD Comment: Test Performed by: [id number] Meter #: [id number] Ordering Provider: CYRUS EVANS Report Released Date/Time: Nov 13, 2023 06:20 PM Reporting Lab: [address] [address] Performing Lab: [address] [address] GEM PH 7.38 7.31-7.41 GEM PCO2 52 [...] TEMP 37.0 Nov 13, 2023 06:15 PM [facility] COVID-19 DIAGNOSTIC (FLU/RSV)(STL) Specimen [...] Nov 13, 2023 03:21 PM Reporting Lab: [address] [address] Performing Lab: [place] [id number] [facility] [address] INFLUENZA A Negative Negative INFLUENZA B Negative Negative COVID-19 ([facility]) Not Detected Not Detected RSV (Cepheid) NEGATIVE Negative Nov 13, 2023 06:00 PM [facility] APTT Specimen Type: PLASMA No comment entered. Ordering Provider: CYRUS EVANS Report Released Date/Time: Nov 13, 2023 03:21 PM Reporting Lab: [address] [address] Performing Lab: [address] [address] APTT 33.7 s 26.7-39.9 Nov 13, 2023 06:00 PM [facility] PT/INR NEW ([facility]) Specimen Type: PLASMA No comment entered. Ordering Provider: CYRUS EVANS Report Released Date/Time: Nov 13, 2023 03:21 PM Reporting Lab: [place] [address] [facility] [address] Performing Lab: [address] [address] PROTIME 12.7 s H 9.4-12.5 INR VALUE 1.1 {INR} Nov 13, 2023 04:59 PM [facility] URINALYSIS W/ CX REFLEX ([facility]) Specimen Type: URINE No comment entered. Ordering Provider: CYRUS EVANS Report Released Date/Time: Nov 13, 2023 03:12 PM Reporting Lab: [address] [address] Performing Lab: [address] [address] URINE COLOR Yellow Yellow U.BILIRUBIN Negative mg/dL [...] 1.005-1.02 9 Nov 13, 2023 02:20 PM [facility] TROPONIN I Specimen Type: PLASMA Comment: No hemolysis noted. Ordering Provider: CYRUS EVANS Report Released Date/Time: Nov 13, 2023 02:14 PM Reporting Lab: [address] [address] Performing Lab: [address] [address] TROPONIN I 0.044 ng/mL H 0-0.033 Nov 13, 2023 02:20 PM [facility] COMPREHENSIVE METABOLIC PANEL Specimen Type: PLASMA Comment: No hemolysis noted. Ordering Provider: CYRUS EVANS Report Released Date/Time: Nov 13, 2023 02:14 PM Reporting Lab: [address] [address] Performing Lab: [address] [address] CREATININE 1.17 mg/dL 0.7-1.3 UREA NITROGEN 12.7 [...] 5-34 ALT/SGPT 34 U/L 8-40 EGFR (CKD-EPI 2021) 60.3 >60 Nov 13, 2023 02:20 PM [facility] CBC Specimen Type: BLOOD No comment entered. Ordering Provider: CYRUS EVANS Report Released Date/Time: Nov 13, 2023 02:14 PM Reporting Lab: [facility] [address] [address] Performing Lab: [facility] [address] [address] WBC 12.5 10*3/uL H 3.6-11.2 RBC 4.21 [...] 01:18 AM ORYX ADMIT TOBACCO SCREEN NO [facility] Tobacco Use History This section includes a history of the smoking, or tobacco-related health factors, that were collected on or before the date of the Encounter. The data comes from the [place] facility where the Encounter took place. Date/Time Smoking Status/Tobacco Use Comment F acility Aug 04, 2022 11:30 AM VA-TOBACCO NEVER USED [facility] Mar 11, 2021 10:30 AM VA-TOBACCO FORMER USER [facility] Mar 11, 2021 10:30 AM VA-TOBACCO QUIT 15 YRS OR MORE [facility] Apr 19, 2018 09:07 AM VA-TOBACCO FORMER USER [facility] Apr 19, 2018 09:07 AM VA-TOBACCO QUIT 15 YRS OR MORE [facility] Jul 24, 2017 08:16 AM QUIT TOBACCO >7 YEARS AGO [facility] Apr 16, 2017 12:43 PM QUIT TOBACCO >7 YEARS AGO [facility] Feb 01, 2017 11:47 AM LIFETIME NON-USER OF TOBACCO [facility] Nov 15, 2016 09:00 AM QUIT TOBACCO >7 YEARS AGO [facility] September 11, 2016 06:27 PM QUIT TOBACCO >7 YEARS AGO [facility] Dec 09, 2015 10:17 AM QUIT TOBACCO >7 YEARS AGO [facility] Jan 05, 2015 08:22 AM CURRENT TOBACCO USER [facility] Jan 05, 2015 08:22 AM TOBACCO MEDS OFFER ED BUT DECLINED [facility] Mar 18, 2014 10:40 AM CURRENT TOBACCO USER [facility] Mar 18, 2014 10:40 AM TOBACCO MEDS OFFER ED BUT DECLINED [facility] Nov 04, 2013 09:40 AM CURRENT TOBACCO USER [facility] Nov 26, 2012 08:10 AM QUIT TOBACCO >7 YEARS AGO [facility] May 03, 2009 08:45 AM QUIT TOBACCO >7 YEARS AGO [facility] Jul 06, 2008 08:46 AM CURRENT TOBACCO USER [facility] Jul 25, 2007 12:30 PM QUIT TOBACCO >12 M O & <7 YRS AGO [facility] Jun 07, 2006 09:21 AM CURRENT TOBACCO USER [facility] Jun 07, 2006 09:21 AM [facility] Aug 25, 2005 11:01 AM CURRENT TOBACCO USER [facility] Aug 25, 2005 11:01 AM TOBACCO CONTEMPLATION STAGE [facility] Oct 25, 2004 10:18 AM CURRENT NON-TOBACC O USER-HX OF USE [facility] Oct 25, 2004 10:18 AM TOBACCO TERMINATION STAGE [facility] Aug 24, 2003 10:43 AM CURRENT NON-TOBACC O USER-HX OF USE [facility] Aug 24, 2003 10:43 AM TOBACCO TERMINATION STAGE [facility] Aug 05, 2002 09:55 AM CURRENT NON-TOBACC O USER-HX OF USE QUIT [facility] Apr 15, 2001 08:28 AM CURRENT NON-TOBACC O USER-HX OF USE quit in 1979 [facility] Advance Directives: All historical and current Section Date Range: From patient's date of to the date document was created. This section includes ALL of a patient's completed or amended [place] Advance and Rescinded Directives. The entries below indicate that a directive exists for the patient, but an actual copy is not included with this document. The data comes from all [facility]. Date Advance Directives Provider Source Oct 19, 2023 ADVANCE DIRECTIVE WANG MURILLO [facility] Dec 12, 2022 RESCINDED ADVANCE DIRECTIVE JITENDRA MEADOWS [facility] September 12, 2016 ADVANCE DIRECTIVE DISCUSSION YVETTE MEADOWS [facility] Radiology Reports: +/- 30 [...] NM MYOCARDIAL P SPECT STRESS/REST-P: JESUS ABRAHAM [id number] -[id number] M Exm Date: NOV 23, 2023@09:03 Req Phys: MEAGHAN QUINTEROS Loc: [facility]-PC TM-C SAME DAY CLINIC (Re Img Loc: [facility]-NUCLEAR MEDICINE Service: [facility] [address] [place] [address] (Case [id number] COMPLETE) NM MYOCARDIAL PERF SPECT STRESS/R(NM Detailed) CPT:97656 Reason for Study: CHEST PAIN, ASSESS SUSPECTED [...] 23, 2023 Date Verified: NOV 23, 2023 Rag Washer E-Sig:/ES/AGUSTO LIPSCOMB Report: PATIENT NAME: JESUS ABRAHAM CASE #: [id number], [id number], [id number], [id number] EXAMINATION: Rest/Lexiscan Stress Gated SPECT Myocardial Imaging [...] code: 1000. Dictated by Rik Brand MD (Personal Development Coach), Rodney Smith MD (Personal Development Coach) IAgusto, have reviewed the images and report and concur with these findings. Primary Interpreting Staff: AGUSTO LIPSCOMB, RADIOLOGIST (Rag Washer) Primary Interpreting Resident: RIK BRAND MD, PHARMACY TECHNICIAN INSTRUCTOR /AGUSTO MAST [facility] Nov 13, 2023 04:[address] HEAD W/O CONT: JESUS ABRAHAM [id number] -[id number] M [facility] Date: NOV 13, 2023@16:07 Req Phys: CYRUS EVANS Loc: [facility]-EMERGENCY DEPT 2ND SHIFT (R Img Loc: [facility]-CT IMAGING [facility] Service: Unknown [facility], [facility] [address] [place] [address] (Case [id number] COMPLETE) CT HEAD W/O CONT (CT Detailed) CPT:84260 Reason for Study: confusion Clinical History: Responsible Attending: cyrus evans Attending Contact Number: [phone] Resident Contact Number: Allergies listed in CPRS chart: Patient has answered NKA Creatinine: CREATININE 1.17 mg/dL 11/13/2023 14:20 /eGFR: STL EGFR (within one year). CREATININE 1.17 mg/dL (11/13/23 14:20) Wt: 189.3 lb [85.87 kg] (10/18/2023 10:32) History of: Renal failure, chronic or acute renal disease: NO Report Status: Verified Date Reported: NOV 13, 2023 Date Verified: NOV 13, 2023 Rag Washer E-Sig: Report: CT HEAD W/O CONT HISTORY: [...] clinical concern, consider MRI. READING PHYSICIAN: Anjum [id number] 11/13/2023 15:14 PDT [facility] National Teleradiology Program [phone] (For Medical Practitioner Use Only) Attention Patients / Veterans: If you have questions or concerns about these test results, please contact your ordering provider or primary care team. Primary Interpreting Staff: RADIOLOGY,OUTSIDE SERVICE, Staff Physician / RADIOLOGY,OUTSIDE SERVICE [facility] Nov 13, 2023 03:59 PM CHEST X-RAY, 2 VIEWS: JESUS ABRAHAM [id number] -[id number] M Ex Date: NOV 13, 2023@15:59 Req Phys: CYRUS EVANS Loc: [facility]-EMERGENCY DEPT 2ND SHIFT (R Img Loc: [facility]-MAIN RADIOLOGY SUITE Service: Unknown [facility], [facility] [address] [place] [address] (Case [id number] COMPLETE) CHEST X-RAY, 2 VIEWS (RAD Detailed) CPT:59794 Reason for Study: chest pain Clinical History: Report Status: Verified Date Reported: NOV 13, 2023 Date Verified: NOV 13, 2023 Rag Washer E-Sig:/ES/AGUSTO LIPSCOMB Report: INDICATION: chest pain COMPARISON: None TECHNIQUE: Chest 2 views Impression: No large pleural effusion or sizable pneumothorax. No new focal consolidation. Unchanged cardiomediastinal silhouette. Primary Interpreting Staff: AGUSTO LIPSCOMB, RADIOLOGIST ([place]) /AGUSTO [place] [facility] Pathology Reports: +/- 30 days of [...] RE PORT: Accession [UID]: [id number] [[id number]] Received: Nov 13, 2023@18:22 Collection sample: B [...] Performing Laboratory: Bacteriology Report [facility] CLIA# [id number] [address] [phone] [address] [facility] Nov 13, 2023 06:05 PM LR MICROBIOLOGY RE PORT: Accession [UID]: [id number] [[id number]] Received: Nov 13, 2023@18:23 Collection sample: B [...] --=--=--=--=--=--=-- Performing Laboratory: Bacteriology Report [facility]formed By: [facility] CLIA# [id number] [address] [id number] [address] [facility] Encounter Notes: All associated encounter notes This section contains the clinical notes associated to the Encounter. Date/Time Encounter Note(s) Provider Source Nov 12, 2023 12:58 PM NONVA NOTE: LOCAL TITLE: COMMUNITY CARE-ARNOLDO SELF PRESENTING CARE COORD PLAN STANDARD TITLE: NONVA NOTE DATE OF NOTE: NOV 12, 2023@12:58 ENTRY DATE: NOV 16, 2023@12:59:03 AUTHOR: JUJU LORENZO EXP COSIGNER: URGENCY: STATUS: COMPLETED COMMUNITY CARE-ARNOLDO SELF PRESENTING CARE COORD PLAN 657 STL Has ADDENDA Emergency Notification Intake Date Presenting to the Facility: Nov Method of Contact: Notified from [facility] worklist Notification ID: [id number] [facility] Referral #: [id number] Clinical Review [facility] Name: Hospital: [facility] Address: [address] City: [place] State: [place] Zip Code: [address] Community Facility Point of Contact: Name: LORRAINE TEAGUE Chief complaint: fluid on lungs Primary Diagnosis: Disposition Discharged Date of discharge: Nov Discharge to home Records req'd by fax. 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 /manuel/ JUJU LORENZO ADVANCED TOPPER PRESS OPERATOR Signed: 11/21/2023 12:50 11/22/2023 ADDENDUM STATUS: COMPLETED Records r/t this episode of care sent to [facility] for scanning. /manuel/ BHAVIN ESCOBAR [facility] SOLE POLISHER Signed: 11/22/2023 18:10 JUJU LORENZO [facility]
--- OUTSIDE RECORDS SUMMARY | 2024-05-17 21:52 | XMS_ITS ---
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 Date/Time Encounter Type Encounter Description Reason Pro vider Source Nov 14, 2023 01:48 PM Inpatient Visit DAILY HOSPITALIZATION DATA [facility] J[facility] Encounter Template Text not used by [place] [...] 20 appointments. The data comes from all [facility]. Appointment Date/Time Appointment Type Appointme nt Facility Name Nov 23, 2023 09:00 AM AMBULATORY - MEDICINE [facility] Nov 23, 2023 10:00 AM AMBULATORY - MEDICINE [facility] Nov 23, 2023 11:30 AM AMBULATORY - MEDICINE [facility] Dec 24, 2023 02:45 PM AMBULATORY - SURGERY [facility] Jan 01, 2024 02:00 PM AMBULATORY - REHAB MEDICIN E [facility] Feb 29, 2024 01:30 PM AMBULATORY - MEDICINE [facility] Mar 03, 2024 09:15 AM AMBULATORY - MEDICINE [facility] Mar 08, 2024 01:30 PM AMBULATORY - MEDICINE [facility] Mar 10, 2024 12:45 PM AMBULATORY - SURGERY [facility] Apr 16, 2024 11:00 AM AMBULATORY - REHAB MEDICIN E [facility] May 15, 2024 11:00 AM AMBULATORY - SURGERY [facility] Active, Pending, and Scheduled Orders This section includes a listing of several types of active, pending, and scheduled orders, including clinic medications orders, diagnostic test orders, procedure orders and consult orders; where the start date of the order is 45 days before the date of the Encounter or 45 days after the date of theEncounter. The data comes from all [facility]. Test Date/Time Test Type Test Details Facility Name Nov 13, 2023 09:10 PM Laboratory - Chemi stry Order MRSA SURVL NARES DNA NARES WC [facility] Nov 21, 2023 12:00 AM Laboratory - Chemi stry Order HGA1C BLOOD SP [facility] Nov 21, 2023 12:00 AM Laboratory - Chemi stry Order VITAMIN D, 25-HYDROXY GOLD/RED SST SERUM SP [facility] Lab Results: +/- 30 days of [...] Range Comment Nov 14, 2023 05:33 AM [facility] TSH W/ REFLEX FT4 (STL) Specimen Type: PLASMA No comment entered. Ordering Provider: NAYLA DUNN Report Released Date/Time: Nov 14, 2023 04:23 AM Reporting Lab: [facility] [address] [facility] [address] Performing Lab: [facility] [address] [facility] [address] TSH 3.546 u[IU]/mL 0.47-5 Nov 14, 2023 05:33 AM [facility] PHOSPHOROUS Specimen Type: PLASMA Comment: No hemolysis noted. Ordering Provider: NAYLA DUNN Report Released Date/Time: Nov 14, 2023 04:23 AM Reporting Lab: [facility] [address] [facility] [address] Performing Lab: [facility] [address] [facility] [address] PHOSPHOROUS 2.9 mg/dL 2.3-4.7 Nov 14, 2023 05:33 AM [facility] MAGNESIUM Specimen Type: PLASMA Comment: No hemolysis noted. Ordering Provider: NAYLA DUNN Report Released Date/Time: Nov 14, 2023 04:23 AM Reporting Lab: [facility] [address] [facility] [address] Performing Lab: [facility] [address] [facility] [address] MAGNESIUM 2.1 mg/dL 1.6-2.6 Nov 14, 2023 05:33 AM [facility] BASIC METABOLIC PANEL Specimen Type: PLASMA Comment: No hemolysis noted. Ordering Provider: NAYLA DUNN Report Released Date/Time: Nov 14, 2023 04:23 AM Reporting Lab: [place] [address] [address] Performing Lab: [address] [address] CREATININE 0.78 mg/dL 0.7-1.3 UREA NITROGEN 12.0 mg/dL 9.0-25.0 GLUCOSE 83 mg/dL 72-99 SODIUM 136 meq/L 136-145 POTASSIUM 4.4 meq/L 3.5-5 CHLORIDE 103 meq/L 98-107 CARBON DIOXIDE 26 meq/L 22-31 CALCIUM 8.8 mg/dL 8.4-10.4 EGFR (CKD-EPI 2020) 86.3 >60 Nov 14, 2023 05:33 AM [facility] CBC Specimen Type: BLOOD Comment: Manual diff performed on 11/13/23 Ordering Provider: NAYLA DUNN Report Released Date/Time: Nov 14, 2023 04:23 AM Reporting Lab: [address] [address] Performing Lab: [address] [address] WBC 12.8 10*3/uL H 3.6-11.2 RBC 3.87 [...] 10*3/uL 0.00-0.20 Nov 14, 2023 01:30 AM [facility] TROPONIN I Specimen Type: PLASMA No comment entered. Ordering Provider: NAYLA DUNN Report Released Date/Time: Nov 14, 2023 01:10 AM Reporting Lab: [facility] [address] [facility] [address] Performing Lab: [facility] [address] [place] [address] TROPONIN I 0.044 ng/mL H 0-0.033 Nov 13, 2023 10:00 PM [facility] MRSA SURVL NARES DNA Specimen Type: [...] Nov 13, 2023 09:10 PM Reporting Lab: [facility] [address] [place] [address] Performing Lab: [address] [address] MRSA SURVL NARES DNA Negative Negative Nov 13, 2023 07:10 PM [facility] TROPONIN I Specimen Type: PLASMA No comment entered. Ordering Provider: CYRUS EVANS Report Released Date/Time: Nov 13, 2023 06:56 PM Reporting Lab: [facility] [address] [place] [address] Performing Lab: [address] [address] TROPONIN I 0.045 ng/mL H 0-0.033 Nov 13, 2023 06:20 PM [facility] BLOOD GAS PANEL ABG (STL) Specimen Type: VENOUS BLOOD Comment: Test Performed by: [id number] Meter #: [id number] Ordering Provider: CYRUS EVANS Report Released Date/Time: Nov 13, 2023 06:20 PM Reporting Lab: [facility] [address] [place] [address] Performing Lab: [address] [address] GEM PH 7.38 7.31-7.41 GEM PCO2 52 [...] TEMP 37.0 Nov 13, 2023 06:15 PM [facility] COVID-19 DIAGNOSTIC (FLU/RSV)([facility]) Specimen Type: NASOPHARYNX Comment: Qualitative real-time [...] Nov 13, 2023 03:21 PM Reporting Lab: [address] [address] Performing Lab: [facility] [address] [facility] [address] INFLUENZA A Negative Negative INFLUENZA B Negative Negative COVID-19 (L-PB) Not Detected Not Detected RSV (Cepheid) NEGATIVE Negative Nov 13, 2023 06:00 PM [facility] APTT Specimen Type: PLASMA No comment entered. Ordering Provider: CYRUS EVANS Report Released Date/Time: Nov 13, 2023 03:21 PM Reporting Lab: [place] [address] [facility] [address] [address] Performing Lab: [address] [address] APTT 33.7 s 26.7-39.9 Nov 13, 2023 06:00 PM [facility] PT/INR NEW ([facility]) Specimen Type: PLASMA No comment entered. Ordering Provider: CYRUS EVANS Report Released Date/Time: Nov 13, 2023 03:21 PM Reporting Lab: [facility] [address] [facility] [address] Performing Lab: [address] [address] PROTIME 12.7 s H 9.4-12.5 INR VALUE 1.1 {INR} Nov 13, 2023 04:59 PM [facility] URINALYSIS W/ CX REFLEX ([facility]) Specimen Type: URINE No comment entered. Ordering Provider: CYRUS EVANS Report Released Date/Time: Nov 13, 2023 03:12 PM Reporting Lab: [place] [address] [facility] [address] Performing Lab: [address] [address] URINE COLOR Yellow Yellow U.BILIRUBIN Negative mg/dL [...] 1.005-1.02 9 Nov 13, 2023 02:20 PM [facility] TROPONIN I Specimen Type: PLASMA Comment: No hemolysis noted. Ordering Provider: CYRUS EVANS Report Released Date/Time: Nov 13, 2023 02:14 PM Reporting Lab: [address] [address] Performing Lab: [address] [address] TROPONIN I 0.044 ng/mL H 0-0.033 Nov 13, 2023 02:20 PM [facility] COMPREHENSIVE METABOLIC PANEL Specimen Type: PLASMA Comment: No hemolysis noted. Ordering Provider: CYRUS EVANS Report Released Date/Time: Nov 13, 2023 02:14 PM Reporting Lab: [address] [address] Performing Lab: [address] [address] CREATININE 1.17 mg/dL 0.7-1.3 UREA NITROGEN 12.7 [...] >60 Nov 13, 2023 02:20 PM [facility] CBC Specimen Type: BLOOD No comment entered. Ordering Provider: CYRUS EVANS Report Released Date/Time: Nov 13, 2023 02:14 PM Reporting Lab: [facility] [address] [facility] [address] Performing Lab: [facility] [address] [facility] [address] WBC 12.5 10*3/uL H 3.6-11.2 RBC 4.21 [...] Source Nov 14, 2023 09:15 AM 0 [facility] Nov 14, 2023 08:10 AM 98.4 70 119/62 18 95 [facility] Nov 14, 2023 06:10 AM 97 66 121/70 18 96 0 [facility] Nov 14, 2023 12:51 AM 0 [facility] Social History: Smoking Status (Most [...] 01:18 AM ORYX ADMIT TOBACCO SCREEN NO [facility] Tobacco Use History This section includes a history of the smoking, or tobacco-related health factors, that were collected on or before the date of the Encounter. The data comes from the [place] facility where the Encounter took place. Date/Time Smoking Status/Tobacco Use Comment F acility Aug 04, 2022 11:30 AM VA-TOBACCO NEVER USED [facility] Mar 11, 2021 10:30 AM VA-TOBACCO FORMER USER [facility] Mar 11, 2021 10:30 AM VA-TOBACCO QUIT 15 YRS OR MORE [facility] Apr 19, 2018 09:07 AM VA-TOBACCO FORMER USER [facility] Apr 19, 2018 09:07 AM VA-TOBACCO QUIT 15 YRS OR MORE [facility] Jul 24, 2017 08:16 AM QUIT TOBACCO >7 YEARS AGO [facility] Apr 16, 2017 12:43 PM QUIT TOBACCO >7 YEARS AGO [facility] Feb 01, 2017 11:47 AM LIFETIME NON-USER OF TOBACCO [facility] Nov 15, 2016 09:00 AM QUIT TOBACCO >7 YEARS AGO [facility] September 11, 2016 06:27 PM QUIT TOBACCO >7 YEARS AGO [facility] Dec 09, 2015 10:17 AM QUIT TOBACCO >7 YEARS AGO [facility] Jan 05, 2015 08:22 AM CURRENT TOBACCO USER [facility] Jan 05, 2015 08:22 AM TOBACCO MEDS OFFER ED BUT DECLINED [facility] Mar 18, 2014 10:40 AM CURRENT TOBACCO USER [facility] Mar 18, 2014 10:40 AM TOBACCO MEDS OFFER ED BUT DECLINED [facility] Nov 04, 2013 09:40 AM CURRENT TOBACCO USER [facility] Nov 26, 2012 08:10 AM QUIT TOBACCO >7 YEARS AGO [facility] May 03, 2009 08:45 AM QUIT TOBACCO >7 YEARS AGO [facility] Jul 06, 2008 08:46 AM CURRENT TOBACCO USER [facility] Jul 25, 2007 12:30 PM QUIT TOBACCO >12 M O & <7 YRS AGO [facility] Jun 07, 2006 09:21 AM CURRENT TOBACCO USER [facility] Jun 07, 2006 09:21 [facility] Aug 25, 2005 11:01 AM CURRENT TOBACCO USER [facility] Aug 25, 2005 11:01 AM TOBACCO CONTEMPLATION STAGE [facility] Oct 25, 2004 10:18 AM CURRENT NON-TOBACC O USER-HX OF USE [facility] Oct 25, 2004 10:18 AM TOBACCO TERMINATION STAGE [facility] Aug 24, 2003 10:43 AM CURRENT NON-TOBACC O USER-HX OF USE [facility] Aug 24, 2003 10:43 AM TOBACCO TERMINATION STAGE [facility] Aug 05, 2002 09:55 AM CURRENT NON-TOBACC O USER-HX OF USE QUIT [facility] Apr 15, 2001 08:28 AM CURRENT NON-TOBACC O USER-HX OF USE quit in 1979 [facility] Advance Directives: All historical and current [...] 2023 ADVANCE DIRECTIVE WANG MURILLO [facility] Dec 12, 2022 RESCINDED ADVANCE DIRECTIVE JITENDRA MEADOWS [facility] September 12, 2016 ADVANCE DIRECTIVE DISCUSSION YVETTE MEADOWS [facility] Radiology Reports: +/- 30 days of [...] NM MYOCARDIAL P SPECT STRESS/REST-P: JESUS ABRAHAM [id number] -1935 M Exm Date: NOV 23, 2023@09:03 Req Phys: MEAGHAN QUINTEROS Loc: -PC TM-C SAME DAY CLINIC (Re Img Loc: -NUCLEAR MEDICINE Service: Unknown [facility] [address] [place] [address] (Case [id number] COMPLETE) NM MYOCARDIAL PERF SPECT STRESS/R(NM Detailed) CPT:05868 Reason for Study: CHEST PAIN, ASSESS SUSPECTED [...] 23, 2023 Date Verified: NOV 23, 2023 Tin Dipper E-Sig:/ES/AGUSTO LIPSCOMB Report: PATIENT NAME: JESUS ABRAHAM CASE #: [id number], [id number], [id number], [id number], [id number] EXAMINATION: Rest/Lexiscan Stress Gated SPECT Myocardial Imaging [...] code: 1000. Dictated by Rik Dorantes MD (Concrete Products Machine Operator), Rodney Smith MD (Concrete Products Machine Operator) IAgusto, have reviewed the images and report and concur with these findings. Primary Interpreting Staff: AGUSTO LPISCOMB, RADIOLOGIST (Tin Dipper) Primary Interpreting Resident: RIK DORANTES MD, CONSULTING PSYCHIATRIST /AGUSTO SEN [facility] Nov 13, 2023 04:[address] HEAD W/O CONT: JESUS ABRAHAM [id number] -1935 M Exm Date: NOV 13, 2023@16:07 Req Phys: CYRUS EVANS Loc: [facility]-EMERGENCY DEPT 2ND SHIFT (R Img Loc: [facility]-CT IMAGING [facility] Service: Unknown [facility] [address] [place] [address] (Case [id number] COMPLETE) CT HEAD W/O CONT (CT Detailed) CPT:15896 Reason for Study: confusion Clinical History: Responsible Attending: cyrus evans Attending Contact Number: [phone] Resident Contact Number: Allergies listed in CPRS chart: Patient has answered NKA Creatinine: CREATININE 1.17 mg/dL 11/13/2023 14:20 /eGFR: STL EGFR (within one year). CREATININE 1.17 mg/dL (11/13/23 14:20) Wt: 189.3 lb [85.87 kg] (10/18/2023 10:32) History of: Renal failure, chronic or acute renal disease: NO Report Status: Verified Date Reported: NOV 13, 2023 Date Verified: NOV 13, 2023 Tin Dipper E-Sig: Report: CT HEAD W/O CONT HISTORY: confusion COMPARISON: CT head 06/11/2019 TECHNIQUE: Contiguous axial CT images from the level of the skull base through the skull apex, performed at the local [place] facility. 269 images were received by the [place] National Teleradiology Program (NTP) for interpretation. RADIATION [...] clinical concern, consider MRI. READING PHYSICIAN: Anjum [id number] 11/13/2023 15:14 PDT [facility] National Teleradiology Program [phone] (For Medical Practitioner Use Only) Attention Patients / Veterans: If you have questions or concerns about these test results, please contact your ordering provider or primary care team. Primary Interpreting Staff: RADIOLOGY,OUTSIDE SERVICE, Staff Physician / RADIOLOGY,OUTSIDE SERVICE [facility] Nov 13, 2023 03:59 PM CHEST X-RAY, 2 VIEWS: JESUS ABRAHAM [id number] -1935 M Exm Date: NOV 13, 2023@15:59 Req Phys: CYRUS EVANS Pat Loc: -EMERGENCY DEPT 2ND SHIFT (R Img Loc: -MAIN RADIOLOGY SUITE Service: [facility], [facility] [address] [place] [address] (Case [id number] COMPLETE) CHEST X-RAY, 2 VIEWS (RAD Detailed) CPT:55925 Reason for Study: chest pain Clinical History: Report Status: Verified Date Reported: NOV 13, 2023 Date Verified: NOV 13, 2023 Tin Dipper E-Sig:/ES/AGUSTO LIPSCOMB Report: INDICATION: chest pain COMPARISON: None TECHNIQUE: Chest 2 views Impression: No large pleural effusion or sizable pneumothorax. No new focal consolidation. Unchanged cardiomediastinal silhouette. Primary Interpreting Staff: AGUSTO LIPSCOMB, RADIOLOGIST (Tin Dipper) /AGUSTO [place] [facility] Pathology Reports: +/- 30 days of [...] comes from all [place] treatment facilities. Date/Time Pathology Report Provider Source Nov 13, 2023 06:10 PM LR MICROBIOLOGY RE PORT: Accession [UID]: [id number] [[id number]] Received: Nov 13, 2023@18:22 Collection sample: B [...] --=--=--=--=--=--=-- Performing Laboratory: Bacteriology Report Performed By: [facility] [address] [place] [address]# [id number] [address] [facility] [address] [place] [address] [facility] Nov 13, 2023 06:05 PM LR MICROBIOLOGY RE PORT: Accession [UID]: [id number] [[id number]] Received: Nov 13, 2023@18:23 Collection sample: B [...] Bacteriology Report Performed By: HANNY BAEZ [address] [facility] CLIA# [id number] [address] [facility] [address] [place] [address] [facility]
--- OUTSIDE RECORDS SUMMARY | 2024-05-17 21:52 | XMS_ITS | Encounter Summary ---
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 Date/Time Encounter Type Encounter Description Reason Provider Source Nov 14, 2023 08:40 AM SELF CARE MNGMENT TRAINING PHYSICAL THERAPY ICD-10-CM M62.81 Muscle weakness (generalized) DAYANA TOVAR Encounter Template Text not used by [place] Assessments - Encounter Diagnoses This section includes the primary and secondary diagnoses documented for the Encounter. Date/Time Primary/Secondary Diagnosis Diagnosis Name Provider Source Nov 14, 2023 09:52 AM PRIMARY Muscle weakness (generalized) STEVEN TOVAR [facility] Plan of Treatment: Future Appointments (+ 6 months) and Future Tests (+/- 45 days) The Plan of Treatment section includes future care activities for the patient [facility] [place] [facility] This section includes future appointments [...] 2023 09:00 AM AMBULATORY - MEDICINE [facility] Nov 23, 2023 10:00 AM AMBULATORY [facility] Nov 23, 2023 11:30 AM AMBULATORY [facility] Dec 24, 2023 02:45 PM AMBULATORY - SURGERY [facility] Jan 01, 2024 02:00 PM AMBULATORY - REHAB MEDICIN [facility] Feb 29, 2024 01:30 PM AMBULATORY MEDICINE [facility] Mar 03, 2024 09:15 AM AMBULATORY - MEDICINE [facility] Mar 08, 2024 01:30 PM AMBULATORY [facility] Mar 10, 2024 12:45 PM AMBULATORY - SURGERY [facility] Apr 16, 2024 11:00 AM [facility] May 15, 2024 11:00 AM AMBULATORY SURGERY [facility] Active, Pending, and Scheduled [...] Order MRSA SURVL NARES DNA NARES WC [facility] Nov 21, 2023 12:00 AM Laboratory - Chemi stry Order HGA1C BLOOD SP [facility] Nov 21, 2023 12:00 AM Laboratory - Chemi stry Order VITAMIN D, 25-HYDROXY GOLD/RED SST SERUM SP [facility] Lab Results: +/- 30 days of the [...] Comment Nov 14, 2023 05:33 AM [facility] PHOSPHOROUS Specimen Type: PLASMA Comment: No hemolysis noted. Ordering Provider: NAYLA DUNN Report Released Date/Time: Nov 14, 2023 04:23 AM Reporting Lab: [facility] [address] [facility] [address] Performing Lab: [facility] [address] [place] [address] PHOSPHOROUS 2.9 mg/dL 2.3-4.7 Nov 14, 2023 05:33 AM [facility] MAGNESIUM Specimen Type: PLASMA Comment: No hemolysis noted. Ordering Provider: NAYLA DUNN Report Released Date/Time: Nov 14, 2023 04:23 AM Reporting Lab: [facility] [address] [facility] [address] Performing Lab: [facility] [address] [place] [phone] MAGNESIUM 2.1 mg/dL 1.6-2.6 Nov 14, 2023 05:33 AM [facility] TSH W/ REFLEX FT4 (STL) Specimen Type: PLASMA No comment entered. Ordering Provider: NAYLA DUNN Report Released Date/Time: Nov 14, 2023 04:23 AM Reporting Lab: [facility] [address] [facility] [address] Performing Lab: [facility] [address] [facility] [address] TSH 3.546 u[IU]/mL 0.47-5 Nov 14, 2023 05:33 AM [facility] BASIC METABOLIC PANEL Specimen Type: PLASMA Comment: No hemolysis noted. Ordering Provider: NAYLA DUNN Report Released Date/Time: Nov 14, 2023 04:23 AM Reporting Lab: [address] [address] Performing Lab: [address] [address] CREATININE 0.78 mg/dL 0.7-1.3 UREA NITROGEN 12.0 mg/dL 9.0-25.0 GLUCOSE 83 mg/dL 72-99 SODIUM 136 meq/L 136-145 POTASSIUM 4.4 meq/L 3.5-5 CHLORIDE 103 meq/L 98-107 CARBON DIOXIDE 26 meq/L 22-31 CALCIUM 8.8 mg/dL 8.4-10.4 EGFR (CKD-EPI 2020) 86.3 >60 Nov 14, 2023 05:33 AM [facility] CBC Specimen Type: BLOOD Comment: Manual diff performed on 11/13/23 Ordering Provider: NAYLA DUNN Report Released Date/Time: Nov 14, 2023 04:23 AM Reporting Lab: [address] [address] Performing Lab: [address] [address] WBC 12.8 10*3/uL H 3.6-11.2 RBC 3.87 [...] 0.00-0.20 Nov 14, 2023 01:30 AM [facility] TROPONIN I Specimen Type: PLASMA No comment entered. Ordering Provider: NAYLA DUNN Report Released Date/Time: Nov 14, 2023 01:10 AM Reporting Lab: [address] [address] Performing Lab: [address] [address] TROPONIN I 0.044 ng/mL H 0-0.033 Nov 13, 2023 10:00 PM [facility] MRSA SURVL NARES DNA Specimen Type: NARES [...] Nov 13, 2023 09:10 PM Reporting Lab: [address] [address] Performing Lab: [address] [address] MRSA SURVL NARES DNA Negative Negative Nov 13, 2023 07:10 PM [facility] TROPONIN I Specimen Type: PLASMA No comment entered. Ordering Provider: CYRUS EVANS Report Released Date/Time: Nov 13, 2023 06:56 PM Reporting Lab: [address] [place] [address] Performing Lab: [place] [address] [facility] [address] TROPONIN I 0.045 ng/mL H 0-0.033 Nov 13, 2023 06:20 PM [facility] BLOOD GAS PANEL ABG (L) Specimen Type: VENOUS BLOOD Comment: Test Performed by: [id number] Meter #: [id number] Ordering Provider: CYRUS EVANS Report Released Date/Time: Nov 13, 2023 06:20 PM Reporting Lab: [place] [address] [facility] [address] Performing Lab: [address] [address] GEM PH 7.38 7.31-7.41 GEM PCO2 52 [...] 37.0 Nov 13, 2023 06:15 PM [facility] COVID-19 DIAGNOSTIC (FLU/RSV)(L) Specimen Type: NASOPHARYNX Comment: Qualitative real-time PCR [...] 13, 2023 03:21 PM Reporting Lab: [facility] [address] [facility] [address] Performing Lab: [facility] [address] [place] [phone] INFLUENZA A Negative Negative INFLUENZA B Negative Negative COVID-19 (STL-PB) Not Detected Not Detected RSV (Cepheid) NEGATIVE Negative Nov 13, 2023 06:00 PM [facility] PT/INR NEW (L-MA) Specimen Type: PLASMA No comment entered. Ordering Provider: CYRUS EVANS Report Released Date/Time: Nov 13, 2023 03:21 PM Reporting Lab: [address] [address] Performing Lab: [facility] [address] [facility] [address] PROTIME 12.7 s H 9.4-12.5 INR VALUE 1.1 {INR} Nov 13, 2023 06:00 PM [facility] APTT Specimen Type: PLASMA No comment entered. Ordering Provider: CYRUS EVANS Report Released Date/Time: Nov 13, 2023 03:21 PM Reporting Lab: [place] [address] [facility] [address] Performing Lab: [facility] [address] [facility] [address] APTT 33.7 s 26.7-39.9 Nov 13, 2023 04:59 PM [facility] URINALYSIS W/ CX REFLEX (L-PB) Specimen Type: URINE No comment entered. Ordering Provider: CYRUS EVANS Report Released Date/Time: Nov 13, 2023 03:12 PM Reporting Lab: [place] [address] [facility] [address] Performing Lab: [address] [address] URINE COLOR Yellow Yellow U.BILIRUBIN Negative mg/dL [...] 1.005-1.02 9 Nov 13, 2023 02:20 PM [facility] TROPONIN I Specimen Type: PLASMA Comment: No hemolysis noted. Ordering Provider: CYRUS EVANS Report Released Date/Time: Nov 13, 2023 02:14 PM Reporting Lab: [facility] [address] [facility] [address] Performing Lab: [facility] [address] [facility] [address] TROPONIN I 0.044 ng/mL H 0-0.033 Nov 13, 2023 02:20 PM [facility] CBC Specimen Type: BLOOD No comment entered. Ordering Provider: CYRUS EVANS Report Released Date/Time: Nov 13, 2023 02:14 PM Reporting Lab: [facility] [address] [facility] [address] Performing Lab: [facility] [address] [facility] [address] WBC 12.5 10*3/uL H 3.6-11.2 RBC 4.21 [...] H 2.10-8.00 Nov 13, 2023 02:20 PM [facility] COMPREHENSIVE METABOLIC PANEL Specimen Type: PLASMA Comment: No hemolysis noted. Ordering Provider: CYRUS EVANS Report Released Date/Time: Nov 13, 2023 02:14 PM Reporting Lab: [facility] [address] [facility] [address] Performing Lab: [address] [address] CREATININE 1.17 mg/dL 0.7-1.3 UREA NITROGEN 12.7 [...] Source Nov 14, 2023 09:15 AM 0 [facility] Nov 14, 2023 08:10 AM 98.4 70 119/62 18 95 [facility] Nov 14, 2023 06:10 AM 97 66 121/70 18 96 0 [facility] Nov 14, 2023 12:51 AM 0 [facility] Social History: Smoking Status (Most current) and Tobacco Use (All prior to encounter date) This section includes the most current, and the historical, smoking and tobacco- related health factors from the [place] facility where the Encounter took place. Current Smoking Status This section includes the most current smoking, or tobacco-related health factor, from the [place] facility where the Encounter took place. Date/Time Current Smoking Status Comment Dena sarkar Nov 14, 2023 01:18 AM ORYX ADMIT TOBACCO SCREEN NO [facility] Tobacco Use History This section includes a history of the smoking, or tobacco-related health factors, that were collected on or before the date of the Encounter. The data comes from the [place] facility where the Encounter took place. Date/Time Smoking Status/Tobacco Use Comment F acility Aug 04, 2022 11:30 AM VA-TOBACCO NEVER USED [facility] Mar 11, 2021 10:30 AM VA-TOBACCO FORMER USER [facility] Mar 11, 2021 10:30 AM VA-TOBACCO QUIT 15 YRS OR MORE [facility] Apr 19, 2018 09:07 AM VA-TOBACCO FORMER USER [facility] Apr 19, 2018 09:07 AM VA-TOBACCO QUIT 15 YRS OR MORE [facility] Jul 24, 2017 08:16 AM QUIT TOBACCO >7 YEARS AGO [facility] Apr 16, 2017 12:43 PM QUIT TOBACCO >7 YEARS AGO [facility] Feb 01, 2017 11:47 AM LIFETIME NON-USER OF TOBACCO [facility] Nov 15, 2016 09:00 AM QUIT TOBACCO >7 YEARS AGO [facility] September 11, 2016 06:27 PM QUIT TOBACCO >7 YEARS AGO [facility] Dec 09, 2015 10:17 AM QUIT TOBACCO >7 YEARS AGO [facility] Jan 05, 2015 08:22 AM CURRENT TOBACCO USER [facility] Jan 05, 2015 08:22 AM TOBACCO MEDS OFFER ED BUT DECLINED [facility] Mar 18, 2014 10:40 AM CURRENT TOBACCO USER [facility] Mar 18, 2014 10:40 AM TOBACCO MEDS OFFER ED BUT DECLINED [facility] Nov 04, 2013 09:40 AM CURRENT TOBACCO USER [facility] Nov 26, 2012 08:10 AM QUIT TOBACCO >7 YEARS AGO [facility] May 03, 2009 08:45 AM QUIT TOBACCO >7 YEARS AGO [facility] Jul 06, 2008 08:46 AM CURRENT TOBACCO USER [facility] Jul 25, 2007 12:30 PM QUIT TOBACCO >12 M O & <7 YRS AGO [facility] Jun 07, 2006 09:21 AM CURRENT TOBACCO USER [facility] Jun 07, 2006 09:21 [facility] Aug 25, 2005 11:01 AM CURRENT TOBACCO USER [facility] Aug 25, 2005 11:01 AM TOBACCO CONTEMPLATION STAGE [facility] Oct 25, 2004 10:18 AM CURRENT NON-TOBACC O USER-HX OF USE [facility] Oct 25, 2004 10:18 AM TOBACCO TERMINATION STAGE [facility] Aug 24, 2003 10:43 AM CURRENT NON-TOBACC O USER-HX OF USE [facility] Aug 24, 2003 10:43 AM TOBACCO TERMINATION STAGE [facility] Aug 05, 2002 09:55 AM CURRENT NON-TOBACC O USER-HX OF USE QUIT [facility] Apr 15, 2001 08:28 AM CURRENT NON-TOBACC O USER-HX OF USE quit in 1979 [facility] Advance Directives: All historical and [...] 19, 20[address] AD[address]ANCE [address] WANG M[address]O [facility] Dec 12, 2022 RESCINDED ADVANCE DIRECTIVE JITENDRA MEADOWS [facility] September 12, 2016 ADVANCE DIRECTIVE DISCUSSION YVETTE MEADOWS [facility] Radiology Reports: +/- 30 days [...] NM MYOCARDIAL P SPECT STRESS/REST-P: JESUS ABRAHAM [id number] -[id number] M Ex Date: NOV 23, 2023@09:03 Req Phys: MEAGHAN QUINTEROS Loc: [facility]-PC TM-C [facility] DAY CLINIC (Re Img Loc: [facility]-NUCLEAR MEDICINE Service: Unknown [address] [address] (Case [id number] COMPLETE) NM MYOCARDIAL PERF SPECT STRESS/R(NM Detailed) CPT:31644 Reason for Study: CHEST PAIN, ASSESS SUSPECTED [...] 23, 2023 Date Verified: NOV 23, 2023 Retreader E-Sig:/ES/AGUSTO LIPSCOMB Report: PATIENT NAME: JESUS ABRAHAM CASE #: [id number], [id number], [id number] EXAMINATION: Rest/Lexiscan Stress Gated SPECT Myocardial Imaging [...] code: 1000. Dictated by Rik Dorantes MD (Churn Tender), Rodney Smith MD (Churn Tender) IAgusto, have reviewed the images and report and concur with these findings. Primary Interpreting Staff: AGUSTO LIPSCOMB, RADIOLOGIST (Retreader) Primary Interpreting Resident: RIK DORANTES MD, FINGER BUFF SEWER /AGUSTO SEN [facility] Nov 13, 2023 04:[address] HEAD W/O CONT: JESUS ABRAHAM [id number] -[id number] M Exm Date: NOV 13, 2023@16:07 Req Phys: CYRUS EVANS Loc: [facility]-EMERGENCY DEPT 2ND SHIFT (R Img Loc: [facility]-CT IMAGING [facility] Service: Unknown [facility] [address] [place] [address] (Case [id number] COMPLETE) CT HEAD W/O CONT (CT Detailed) CPT:28351 Reason for Study: confusion Clinical History: Responsible Attending: cyrus evans Attending Contact Number: [phone] Resident Contact Number: Allergies listed in CPRS chart: Patient has answered NKA Creatinine: CREATININE 1.17 mg/dL 11/13/2023 14:20 /eGFR: STL EGFR (within one year). CREATININE 1.17 mg/dL (11/13/23 14:20) Wt: 189.3 lb [85.87 kg] (10/18/2023 10:32) History of: Renal failure, chronic or acute renal disease: NO Report Status: Verified Date Reported: NOV 13, 2023 Date Verified: NOV 13, 2023 Retreader E-Sig: Report: CT HEAD W/O CONT HISTORY: confusion COMPARISON: CT head 06/11/2019 TECHNIQUE: Contiguous axial CT images from the level of the skull base through the skull apex, performed at the local [place] facility. 269 images were received by the [place] National Teleradiology Program (NTP) for interpretation. RADIATION [...] concern, consider MRI. READING PHYSICIAN: Anjum Guevara -[id number] 11/13/2023 15:14 PDT [facility] National Teleradiology Program [phone] (For Medical Practitioner Use Only) Attention Patients / Veterans: If you have questions or concerns about these test results, please contact your ordering provider or primary care team. Primary Interpreting Staff: RADIOLOGY,OUTSIDE SERVICE, Staff Physician / RADIOLOGY,OUTSIDE SERVICE [facility] Nov 13, 2023 03:59 PM CHEST X-RAY, 2 VIEWS: JESUS ABRAHAM [id number] -[id number] M Exm Date: NOV 13, 2023@15:59 Req Phys: CYRUS EVANS Loc: -EMERGENCY DEPT 2ND SHIFT (R Img Loc: -MAIN RADIOLOGY SUITE Service: [address] [address] (Case [id number] COMPLETE) CHEST X-RAY, 2 VIEWS (RAD Detailed) CPT:12094 Reason for Study: chest pain Clinical History: Report Status: Verified Date Reported: NOV 13, 2023 Date Verified: NOV 13, 2023 Retreader E-Sig:/ES/AGUSTO LIPSCOMB Report: INDICATION: chest pain COMPARISON: None TECHNIQUE: Chest 2 views Impression: No large pleural effusion or sizable pneumothorax. No new focal consolidation. Unchanged cardiomediastinal silhouette. Primary Interpreting Staff: AGUSTO LIPSCOMB, RADIOLOGIST (Retreader) /AGUSTO HOOVER [facility] Pathology Reports: +/- 30 days [...] comes from all [place] treatment facilities. Date/Time Pathology Report Provider Source Nov 13, 2023 06:10 PM LR MICROBIOLOGY RE PORT: Accession [UID]: [id number] [[id number]] Received: Nov 13, 2023@18:22 Collection sample: B [...] --=--=--=--=--=--=-- Performing Laboratory: Bacteriology Report Performed By: [facility] [address] [place] [address] CLIA# [id number] [facility] [address] [place] [address] [place] [address] Nov 13, 2023 06:05 PM LR MICROBIOLOGY RE PORT: Accession [UID]: [id number] [[id number]] Received: Nov 13, 2023@18:23 Collection sample: B [...] --=--=--=--=--=--=-- Performing Laboratory: Bacteriology Report Performed By: [facility], HANNY [address] [facility]# [id number] [facility] [facility] [address] [place] [address] [facility] Encounter Notes: All associated encounter notes This section contains the clinical notes associated to the Encounter. Date/Time Encounter Note(s) Provider Source Nov 14, 2023 09:29 AM PHYSICAL THERAPY C ONSULT: LOCAL TITLE: PT CONSULT ST STANDARD TITLE: PHYSICAL THERAPY CONSULT DATE OF NOTE: NOV 14, 2023@09:29 ENTRY DATE: NOV 14, 2023@09:29:33 AUTHOR: ALEIDA TOVAR COSIGNER: URGENCY: STATUS: COMPLETED PHYSICAL THERAPY INITIAL EVALUATION Requesting Provider: NAYLA DUNN Clinically Ind. Date: Nov 14, 2023 Provisional Diagnosis: Dizziness and Giddiness(ICD-10-CM R42.) Reason for referral to Physical Therapy: New functional deficit not expected to spontaneously resolve ENTER ANY PRECAUTIONS: dizziness Length of Visit: 3433-8655; 35 minutes Evaluation: __x_Low ___Mod ___ High Treatment: [x]self-care 10 minutes Evaluation Date: 11/14/23 Visits: 1 HISTORY OF PRESENT ILLNESS: admit from ED with complaints of dizziness and chest pain. Chart review reveals chronic nature to complaints of dizziness, dating back to September 2022. Chest pain also appears chronic and work-up has been unremarkable thus far. Pt is supposed to have a stress test 11/22--results should be valuable to rule in cardiogenic nature to CP complaints. 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 degeneration (SNOMED CT 978912109) 7) Colonic Polyps 8) Diabetes Mellitus without mention of Complication, type II or unspecified type, 9) Benign essential hypertension (SNOMED CT 9418945) 10) Pain in joint involving shoulder region [...] 780.79) 19) History/Skin/CA 20) Dermatitis (SNOMED CT 544618082) 21) Dry skin (SNOMED CT 47228596) 22) Chest pain 23) Exudative age-related macular degeneration 24) Hyperlipidemia 25) Diabetes mellitus 26) Insomnia 27) Osteoarthritis of knee SOCIAL HISTORY/PRIOR LEVEL OF FUNCTION *Information provided by: Pt Home environment: lives in a prison apartment with , ground level with no ARLENE Assistance at home: none Home equipment: SPC ADLs/IADLs: independent, takes care of History of falls: none in recent 3 months SUBJECTIVE: hoping to d/c today Pt verbally agreeable to PT evaluation. Pt goals: return home COGNITION/COMMUNICATION: alert and oriented in all spheres PAIN: 0/10 Abbreviations: WFL=Within Functional Limits; (I)=Independent; A=Assist; A/PROM=Act.Rom/Passive ROM; STR=Strength; SUP=Supervision; NT=Not Tested; VC=Verbal Cues; SMOKING PIPE LINER=Prior To Admission; [facility]; CGA=Contact Guard Assist OBJECTIVE: SBAR c/RN prior to evaluation. Observation: -Arrival: Pt received semi-gutierrez in bed, in NAD -End of session: Pt left SEOB Lines/braces/dressings: telemetry VITALS: Position; BP; HR; SpO2 Orthostatic: Sittin/67, 67, 96% Standin/67, 70, 95% Re-take following standing exercise: 115/66, 72, 95% Post-Activity: sitting; 154/82, 69, 96% -Description: [x] on room air; [] supplemental O2 via _ on _ L during activity ROM: grossly WFL in all extremities STRENGTH: grossly 4/5 in bilateral UE and LE Edema: 1+ pitting LLE NEURO: Sensation: light touch intact in all 4 extremities Tone/Motor Control: grossly WFL throughout Proprioception: WFL Coordination: WFL Special Tests: none FUNCTIONAL MOBILITY: Rolling: independent Supine <-> sit: independent Sit <-> stand: independent Gait: independently walked 1220 feet, independent -gait pattern/deviations: couple moments of tripping over foot, but able to sustain balance ENDURANCE: 6 minute walk test: walked 960 feet -on 110 feet path, no AD, no rest break Dyspnea Scale: not apparent [] +1 mild, noticeable to patient but not observer [] +2 mild, some difficulty, noticeable to observer [] +3 moderate difficulty, but can continue [] +4 severe difficulty, cannot continue OUTCOME MEASURE TINETTI PERFORMANCE BASED ASSESSMENT: BALANCE TEST Initial instructions: Subject is seated in hard, armless chair. 1. Sitting balance: -Leans or slides in chair...................... .=0 [] -Steady, safe....................... ............=1 [x] 2. Arises: -Unable without help....................... .....=0 [] -Able, uses arms to help....................... .=1 [] -Able without using arms....................... .=2 [x] 3. -Attempts to Arise: -Unable without help....................... .....=0 [] -Able, but requires more than 1 attempt.........=1 [] -Able to rise, 1 attempt.................... ....=2 [x] 4. Immediate Standing Balance (first 5 seconds): -Unsteady (swaggers, moves feet, trunk sway)....=0 [] -Steady but uses walker or other support........=1 [] -Steady without walker or other support.........=2 [x] 5. Standing Balance: -Unsteady.................. .....................=0 [] -Steady but wide stance (medial heals wider than 4 inches apart)and uses cane or other support..=1 [] -Narrow stance without support..................=2 [x] 6. Nudged (subject at maximum position with feet as close as possible, examiner pushes lightly on subject's sternum with palm of hand 3 times): -Begins to fall....................... ..........=0 [] -Staggers, grabs, catches self..................=1 [] -Steady.................... .....................=2 [x] 7. Eyes Closed (at maximum position of item 6): -Unsteady.................. .....................=0 [] -Steady.................... .....................=1 [x] 8. Turning 360 Degrees : -Discontinuous steps...................... ......=0 [] -Continuous steps...................... .........=1 [x] -Unsteady (grabs, staggers).................. ...=0 [] -Steady.................... .....................=1 [x] 9. Sitting Down -Unsafe (misjudged distance, falls into chair)..=0 [] -Uses arms or not a smooth motion...............=1 [] -Safe, smooth motion..................... .......=2 [x] BALANCE SCORE = 16/16. - TINETTI PERFROMANCE BASSED ASSESSMENT - GAIT TEST: Initial Instructions: Subject stands with examiner, walks down hallway or across room, first at usual pace, then back at rapid, but safe pace (using usual walking aids) 10. Initiation of Gait (immediately after told to go -Any hesitancy or multiple attempts to start...=0 [] -No hesitancy.................. ................=1 [x] 11. Step Length and Height: -Right swing foot: --Fails to pass left stance foot with step....=0 [] --Passes left stance foot.....................=1 [x] --Fails to completely clear floor with step...=0 [] --Completely clears floor.....................= 1 [x] -Left swing foot: --Fails to pass right stance foot with step...=0 [] --Passes right stance foot....................=1 [x] --Fails to completely clear floor with step...=0 [] --Completely clears floor.....................= 1 [x] 12. Step Symmetry: -Right and left step length not equal..........=0 [] -Right and left step length equal..............=1 [x] 13. Step Continuity: -Stopping or discontinuity between steps.......=0 [] -Steps appear continuous................. ......=1 [x] 14. Path (Observe excursion to right or left over 10 feet): -Marked deviation.................. ............=0 [] -Mild/moderate deviation or uses walking aid...=1 [] -Straight without walking aid..................=2 [x] 15. Trunk: -Marked sway or uses walking aid...............=0 [] -No sway but flexion of knees or back or spreads arms out while walking................=1 [] -No sway, no flexion, no use of arms, and no use of walking aid........................ ....=2 [x] 16. Walking Stance: -Heels apart...................... .............=0 [x] -Heels almost touching while walking...........=1 [] GAIT SCORE = 11/12. TOTAL SCORE (Balance+Gait) = 27/28. INTERPRETATION OF TINETTI ASSESSMENT: Less than 19 = high fall risk. 19-24 = medium fall risk. --> 25-28 = low fall risk. Interventions: [x]EDUCATION: Pt demonstrated understanding of education/instructions. Pt given 1:1 instruction on: _X__Purpose of PT _X__Findings of evaluation, POC, goals, DC plan per assessment ___ Disease process: _x__ Self-care and safety: (pre-tensing exercises to improve orthostatic response, continued walking during hospitalization to maintain strength) ___ Equipment use: (w/c safety of importance of locking brakes before transfers and asking for assistance with transfers) Response to interventions: []Good response [x]No adverse subjective or objective response noted []abnormal response: Assessment: JESUS ABRAHAM is a 88 year-old male admitted to [facility] on Nov. Admit Dx: FAILURE TO THRIVE Prior to admission, pt was independent with mobility tasks. On examination, pt demonstrates baseline level of function. He is able to walk community distance without an assistive device on examination. Low risk for falls based on Tinetti. No symptoms present with sustained low intensity physical activity. BP drop (24 mm Hg) transitioning from sitting to standing but pt reports no symptoms and was stable on observation. No acute PT needs indicated at this time. May consider LE compression garment, if no contraindications present, to support BP with positional changes if concerns of dizziness persist. Pt is released for routine mobilization with nursing staff while admitted. DISCHARGE RECOMMENDATION: []Low Intensity Inpatient Rehabilitation []Comprehensive Inpatient Rehabilitation []04/12 Care []04/12 Supervision [x]Home with [x]No further needs []Consult to Outpt [facility] PT for a virtual group home Visit []consult to Occupational Therapy [place] Video Connect Home Safety Eval []Home Health PT- Community Care- [facility] [place] Skilled Home Care [facility] []Prior Level of Assist []Outpatient PT []Assist for IADLs []Physiatry Consult to Outpatient PMR Service - indicated for post-ICU stay, post Stroke, post amputation and other medical diagnosis requiring 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 Prognosis: __POOR- Limited potential for improvement.* __GUARDED- There exists a question of the potential for improvement secondary to any of the above questions.* __FAIR- Presents with the potential to improve in some areas while other deficits may remain unchanged.* _x_GOOD- Presents with the potential to improve to a level of functional independence, though may continue to demonstrate certain minimal limitations. __EXCELLENT- Presents with the potential to fully recover with no residual deficits. PLAN: [x] Discharge acute care PT services []Pt will be seen 3-5x per week during acute hospitalization for the following activities: [x]Gait training with/without device [x]Balance activities [x]Endurance activities []Wheelchair mobility training [x]LE strengthening [x]Transfer training [x]Stair training [x]Pt/family education Pt presented with the following number of personal factors/co-morbidities influencing the PT plan of care: -> Age, home environment, dizziness Total number of elements examined: -> Strength, Balance, Functional Mobility, edema, Vital Signs Pts CLINICAL PRESENTATION was: [x] Stable and/or Uncomplicated: [] Evolving Clinical Presentation with Changing Clinical Characteristics: [] Unstable and Unpredictable Characteristics: Therefore the level of complexity for this patient was: [x] Low, [] Moderate, [] High If this is the last PT intervention then this documentation serves at the discharge Note as well. * /manuel/ ALEIDA TOVAR Physical Therapist Signed: 11/14/2023 09:[address] [facility]
--- OUTSIDE RECORDS SUMMARY | 2024-05-17 21:52 | XMS_ITS ---
[place] DAILY HOSPITALIZATION DATA [facility] Encounter Summary Created on: May 17, 2024 JESUS ABRAHAM : 1935 Sex: Male Author Name [facility] [place] Organization [facility] Address [address] [place] [address] Care Team Providers Care Newspaper Library Manager Name Role Phone MEAGHAN QUINTEROS Primary [...] PART B Aug 12, 2001 PART B [id number] JESUS ABRAHAM PATIENT MEDICARE (WNR) MEDICARE (M) PART A Aug 12, 2001 PART A [id number] [phone] JESUS ABRAHAM PATIENT Selected Encounter This section includes the information on record at [place] for the Encounter. Date/Time Encounter Type Encounter Description Reason Pro vider Source Nov 14, 2023 11:43 AM Inpatient Visit DAILY HOSPITALIZATION DATA [facility]ORDON Encounter Template Text not used by [place] Plan of Treatment: Future Appointments (+ 6 [...] 20 appointments. The data comes from all [facility]. Appointment Date/Time Appointment Type Appointme nt Facility Name Nov 23, 2023 09:00 AM AMBULATORY - MEDICINE [facility] Nov 23, 2023 10:00 AM AMBULATORY - MEDICINE [facility] Nov 23, 2023 11:30 AM AMBULATORY - MEDICINE [facility] Dec 24, 2023 02:45 PM AMBULATORY - SURGERY [facility] Jan 01, 2024 02:00 PM AMBULATORY - REHAB MEDICIN E [facility] Feb 29, 2024 01:30 PM AMBULATORY - MEDICINE [facility] Mar 03, 2024 09:15 AM AMBULATORY - MEDICINE [facility] Mar 08, 2024 01:30 PM AMBULATORY - MEDICINE [facility] Mar 10, 2024 12:45 PM AMBULATORY - SURGERY [facility] Apr 16, 2024 11:00 AM AMBULATORY - REHAB MEDICIN E [facility] May 15, 2024 11:00 AM AMBULATORY - SURGERY [facility] Active, Pending, [...] of theEncounter. The data comes from all [facility]. Test Date/Time Test Type Test Details Facility Name Nov 13, 2023 09:10 PM Laboratory - Chemi stry Order MRSA SURVL NARES DNA NARES WC [facility] Nov 21, 2023 12:00 AM Laboratory - Chemi stry Order HGA1C BLOOD SP [facility] Nov 21, 2023 12:00 AM Laboratory - Chemi stry Order VITAMIN D, 25-HYDROXY GOLD/RED SST SERUM SP [facility] Lab Results: +/- 30 days [...] Range Comment Nov 14, 2023 05:33 AM [facility] TSH W/ REFLEX FT4 ([facility]) Specimen Type: PLASMA No comment entered. Ordering Provider: NAYLA DUNN Report Released Date/Time: Nov 14, 2023 04:23 AM Reporting Lab: [facility] [address] [facility] [facility] [address] Performing Lab: [facility] [address] [address] TSH 3.546 u[IU]/mL 0.47-5 Nov 14, 2023 05:33 AM [facility] PHOSPHOROUS Specimen Type: PLASMA Comment: No hemolysis noted. Ordering Provider: NAYLA DUNN Report Released Date/Time: Nov 14, 2023 04:23 AM Reporting Lab: [facility] [address] [facility] [address] Performing Lab: [facility] [address] [address] PHOSPHOROUS 2.9 mg/dL 2.3-4.7 Nov 14, 2023 05:33 AM [facility] MAGNESIUM Specimen Type: PLASMA Comment: No hemolysis noted. Ordering Provider: NAYLA DUNN Report Released Date/Time: Nov 14, 2023 04:23 AM Reporting Lab: [facility] [address] [address] Performing Lab: [facility] [address] [facility] [facility] [address] MAGNESIUM 2.1 mg/dL 1.6-2.6 Nov 14, 2023 05:33 AM [facility] BASIC METABOLIC PANEL Specimen Type: PLASMA Comment: No hemolysis noted. Ordering Provider: NAYLA DUNN Report Released Date/Time: Nov 14, 2023 04:23 AM Reporting Lab: [place] [address] [address] Performing Lab: [address] [address] CREATININE 0.78 mg/dL 0.7-1.3 UREA NITROGEN 12.0 mg/dL 9.0-25.0 GLUCOSE 83 mg/dL 72-99 SODIUM 136 meq/L 136-145 POTASSIUM 4.4 meq/L 3.5-5 CHLORIDE 103 meq/L 98-107 CARBON DIOXIDE 26 meq/L 22-31 CALCIUM 8.8 mg/dL 8.4-10.4 EGFR (CKD-EPI 2020) 86.3 >60 Nov 14, 2023 05:33 AM [facility] CBC Specimen Type: BLOOD Comment: Manual diff performed on 11/13/23 Ordering Provider: NAYLA DUNN Report Released Date/Time: Nov 14, 2023 04:23 AM Reporting Lab: [address] [address] Performing Lab: [address] [address] WBC 12.8 10*3/uL H 3.6-11.2 RBC 3.87 [...] 10*3/uL 0.00-0.20 Nov 14, 2023 01:30 AM [facility] TROPONIN I Specimen Type: PLASMA No comment entered. Ordering Provider: NAYLA DUNN Report Released Date/Time: Nov 14, 2023 01:10 AM Reporting Lab: [facility] [address] [facility] [address] Performing Lab: [facility] [address] [place] [phone] TROPONIN I 0.044 ng/mL H 0-0.033 Nov 13, 2023 10:00 PM [facility] MRSA SURVL NARES DNA Specimen [...] Nov 13, 2023 09:10 PM Reporting Lab: [facility] [address] [place] [phone] Performing Lab: [address] [address] MRSA SURVL NARES DNA Negative Negative Nov 13, 2023 07:10 PM [facility] TROPONIN I Specimen Type: PLASMA No comment entered. Ordering Provider: CYRUS EVANS Report Released Date/Time: Nov 13, 2023 06:56 PM Reporting Lab: [facility] [address] [place] [address] Performing Lab: [address] [address] TROPONIN I 0.045 ng/mL H 0-0.033 Nov 13, 2023 06:20 PM [facility] BLOOD GAS PANEL ABG ([facility]) Specimen Type: VENOUS BLOOD Comment: Test Performed by: [id number] Meter #: [id number] Ordering Provider: CYRUS EVANS Report Released Date/Time: Nov 13, 2023 06:20 PM Reporting Lab: [facility] [address] [place] [address] Performing Lab: [address] [address] GEM PH 7.38 7.31-7.41 GEM PCO2 52 [...] TEMP 37.0 Nov 13, 2023 06:15 PM [facility] COVID-19 DIAGNOSTIC (FLU/RSV)([facility]) [...] Nov 13, 2023 03:21 PM Reporting Lab: [address] [address] Performing Lab: [facility] [address] [facility] [facility] [address] INFLUENZA A Negative Negative INFLUENZA B Negative Negative COVID-19 (L-PB) Not Detected Not Detected RSV (Cepheid) NEGATIVE Negative Nov 13, 2023 06:00 PM [facility] APTT Specimen Type: PLASMA No comment entered. Ordering Provider: CYRUS EVANS Report Released Date/Time: Nov 13, 2023 03:21 PM Reporting Lab: [place] [address] [facility] [facility] [address] Performing Lab: [address] [address] APTT 33.7 s 26.7-39.9 Nov 13, 2023 06:00 PM [facility] PT/INR NEW ([facility]) Specimen Type: PLASMA No comment entered. Ordering Provider: CYRUS EVANS Report Released Date/Time: Nov 13, 2023 03:21 PM Reporting Lab: [facility] [address] [facility] [address] Performing Lab: [address] [address] PROTIME 12.7 s H 9.4-12.5 INR VALUE 1.1 {INR} Nov 13, 2023 04:59 PM [facility] URINALYSIS W/ CX REFLEX ([facility]) Specimen Type: URINE No comment entered. Ordering Provider: CYRUS EVANS Report Released Date/Time: Nov 13, 2023 03:12 PM Reporting Lab: [place] [address] [facility] [facility] [address] Performing Lab: [address] [address] URINE COLOR Yellow Yellow U.BILIRUBIN Negative mg/dL [...] 1.005-1.02 9 Nov 13, 2023 02:20 PM [facility] TROPONIN I Specimen Type: PLASMA Comment: No hemolysis noted. Ordering Provider: CYRUS EVANS Report Released Date/Time: Nov 13, 2023 02:14 PM Reporting Lab: [address] [address] Performing Lab: [address] [address] TROPONIN I 0.044 ng/mL H 0-0.033 Nov 13, 2023 02:20 PM [facility] COMPREHENSIVE METABOLIC PANEL Specimen Type: PLASMA Comment: No hemolysis noted. Ordering Provider: CYRUS EVANS Report Released Date/Time: Nov 13, 2023 02:14 PM Reporting Lab: [address] [address] Performing Lab: [address] [address] CREATININE 1.17 mg/dL 0.7-1.3 UREA NITROGEN 12.7 [...] Nov 13, 2023 02:20 PM [facility] CBC Specimen Type: BLOOD No comment entered. Ordering Provider: CYRUS EVANS Report Released Date/Time: Nov 13, 2023 02:14 PM Reporting Lab: [facility] [address] [facility] [address] Performing Lab: [facility] [address] [facility] [address] WBC 12.5 10*3/uL H 3.6-11.2 RBC 4.21 [...] Nov 14, 2023 09:15 AM 0 [facility] Nov 14, 2023 08:10 AM 98.4 70 119/62 18 95 [facility] Nov 14, 2023 06:10 AM 97 66 121/70 18 96 0 [facility] Nov 14, 2023 12:51 AM 0 [facility] Social History: Smoking Status (Most current) and Tobacco Use (All prior to encounter date) This section includes the most current, and the historical, smoking and tobacco- related health factors from the [place] facility where the Encounter took place. Current Smoking Status This section includes the most current smoking, or tobacco-related health factor, from the [place] facility where the Encounter took place. Date/Time Current Smoking Status Comment Dena ity Nov 14, 2023 01:18 AM ORYX ADMIT TOBACCO SCREEN NO [facility] Tobacco Use History This section includes a history of the smoking, or tobacco-related health factors, that were collected on or before the date of the Encounter. The data comes from the [place] facility where the Encounter took place. Date/Time Smoking Status/Tobacco Use Comment F acility Aug 04, 2022 11:30 AM VA-TOBACCO NEVER USED [facility] Mar 11, 2021 10:30 AM VA-TOBACCO FORMER USER [facility] Mar 11, 2021 10:30 AM VA-TOBACCO QUIT 15 YRS OR MORE [facility] Apr 19, 2018 09:07 AM VA-TOBACCO FORMER USER [facility] Apr 19, 2018 09:07 AM VA-TOBACCO QUIT 15 YRS OR MORE [facility] Jul 24, 2017 08:16 AM QUIT TOBACCO >7 YEARS AGO [facility] Apr 16, 2017 12:43 PM QUIT TOBACCO >7 YEARS AGO [facility] Feb 01, 2017 11:47 AM LIFETIME NON-USER OF TOBACCO [facility] Nov 15, 2016 09:00 AM QUIT TOBACCO >7 YEARS AGO [facility] September 11, 2016 06:27 PM QUIT TOBACCO >7 YEARS AGO [facility] Dec 09, 2015 10:17 AM QUIT TOBACCO >7 YEARS AGO [facility] Jan 05, 2015 08:22 AM CURRENT TOBACCO USER [facility] Jan 05, 2015 08:22 AM TOBACCO MEDS OFFER ED BUT DECLINED [facility] Mar 18, 2014 10:40 AM CURRENT TOBACCO USER [facility] Mar 18, 2014 10:40 AM TOBACCO MEDS OFFER ED BUT DECLINED [facility] Nov 04, 2013 09:40 AM CURRENT TOBACCO USER [facility] Nov 26, 2012 08:10 AM QUIT TOBACCO >7 YEARS AGO [facility] May 03, 2009 08:45 AM QUIT TOBACCO >7 YEARS AGO [facility] Jul 06, 2008 08:46 AM CURRENT TOBACCO USER [facility] Jul 25, 2007 12:30 PM QUIT TOBACCO >12 M O & <7 YRS AGO [facility] Jun 07, 2006 09:21 AM CURRENT TOBACCO USER [facility] Jun 07, 2006 09:21 [facility] Aug 25, 2005 11:01 AM CURRENT TOBACCO USER [facility] Aug 25, 2005 11:01 AM TOBACCO CONTEMPLATION STAGE [facility] Oct 25, 2004 10:18 AM CURRENT NON-TOBACC O USER-HX OF USE [facility] Oct 25, 2004 10:18 AM TOBACCO TERMINATION STAGE [facility] Aug 24, 2003 10:43 AM CURRENT NON-TOBACC O USER-HX OF USE [facility] Aug 24, 2003 10:43 AM TOBACCO TERMINATION STAGE [facility] Aug 05, 2002 09:55 AM CURRENT NON-TOBACC O USER-HX OF USE QUIT [facility] Apr 15, 2001 08:28 AM CURRENT NON-TOBACC O USER-HX OF USE quit in 1979 [facility] Advance Directives: All historical and current Section Date Range: From patient's date of to the date document was created. This section includes ALL of a patient's completed or amended [place] Advance and Rescinded Directives. The entries below indicate that a directive exists for the patient, but an actual copy is not included with this document. The data comes from all [place] facilities. Date Advance Directives Provider Source Oct 19, 2023 ADVANCE DIRECTIVE WANG MURILLO [facility] Dec 12, 2022 RESCINDED ADVANCE DIRECTIVE JITENDRA MEADOWS [facility] September 12, 2016 ADVANCE DIRECTIVE DISCUSSION YVETTE MEADOWS [facility] Radiology Reports: +/- 30 days of [...] the Encounter. The data comes from all [place] treatment facilities. Date/Time Radiology Report Provider Source Nov 23, 2023 09:03 AM NM MYOCARDIAL P SPECT STRESS/REST-P: JESUS ABRAHAM [id number] -1935 M Exm Date: NOV 23, 2023@09:03 Req Phys: MEAGHAN QUINTEROS Loc: -PC TM-C SAME DAY CLINIC (Re Img Loc: -NUCLEAR MEDICINE Service: Unknown [facility] [address] [place] [address] (Case [id number] COMPLETE) NM MYOCARDIAL PERF SPECT STRESS/R(NM Detailed) CPT:71465 Reason for Study: CHEST PAIN, ASSESS SUSPECTED [...] 23, 2023 Date Verified: NOV 23, 2023 Front Line Leader E-Sig:/ES/AGUSTO LIPSCOMB Report: PATIENT NAME: JESUS ABRAHAM CASE #: [id number], [id number], [id number], [id number], [id number] EXAMINATION: Rest/Lexiscan Stress Gated SPECT Myocardial Imaging [...] code: 1000. Dictated by Rik Dorantes MD (Science Liaison), Rodney Smith MD (Science Liaison) IAgusto, have reviewed the images and report and concur with these findings. Primary Interpreting Staff: AGUSTO LIPSCOMB, RADIOLOGIST (Front Line Leader) Primary Interpreting Resident: RIK DORANTES MD, TRACK LAMINATING MACHINE TENDER /AGUSTO SEN [facility] Nov 13, 2023 04:[address] HEAD W/O CONT: JESUS ABRAHAM [id number] -1935 M Exm Date: NOV 13, 2023@16:07 Req Phys: CYRUS EVANS Loc: [facility]-EMERGENCY DEPT 2ND SHIFT (R Img Loc: [facility]-CT IMAGING [facility] Service: Unknown [facility], [facility] [address] [place] [address] (Case [id number] COMPLETE) CT HEAD W/O CONT (CT Detailed) CPT:93927 Reason for Study: confusion Clinical History: Responsible Attending: cyrus evans Attending Contact Number: [phone] Resident Contact Number: Allergies listed in CPRS chart: Patient has answered NKA Creatinine: CREATININE 1.17 mg/dL 11/13/2023 14:20 /eGFR: STL EGFR (within one year). CREATININE 1.17 mg/dL (11/13/23 14:20) Wt: 189.3 lb [85.87 kg] (10/18/2023 10:32) History of: Renal failure, chronic or acute renal disease: NO Report Status: Verified Date Reported: NOV 13, 2023 Date Verified: NOV 13, 2023 Front Line Leader E-Sig: Report: CT HEAD W/O CONT HISTORY: confusion COMPARISON: CT head 06/11/2019 TECHNIQUE: Contiguous axial CT images from the level of the skull base through the skull apex, performed at the local [place] facility. 269 images were received by the [place] National Teleradiology Program (NTP) for interpretation. RADIATION [...] clinical concern, consider MRI. READING PHYSICIAN: Anjum [id number] 11/13/2023 15:14 PDT [facility] National Teleradiology Program [phone] (For Medical Practitioner Use Only) Attention Patients / Veterans: If you have questions or concerns about these test results, please contact your ordering provider or primary care team. Primary Interpreting Staff: RADIOLOGY,OUTSIDE SERVICE, Staff Physician / RADIOLOGY,OUTSIDE SERVICE [facility] Nov 13, 2023 03:59 PM CHEST X-RAY, 2 VIEWS: JESUS ABRAHAM [id number] -1935 M Exm Date: NOV 13, 2023@15:59 Req Phys: CYRUS EVANS Pat Loc: -EMERGENCY DEPT 2ND SHIFT (R Img Loc: -MAIN RADIOLOGY SUITE Service: [facility], [facility] [address] [place] [address] (Case [id number] COMPLETE) CHEST X-RAY, 2 VIEWS (RAD Detailed) CPT:71044 Reason for Study: chest pain Clinical History: Report Status: Verified Date Reported: NOV 13, 2023 Date Verified: NOV 13, 2023 Front Line Leader E-Sig:/ES/AGUSTO LIPSCOMB Report: INDICATION: chest pain COMPARISON: None TECHNIQUE: Chest 2 views Impression: No large pleural effusion or sizable pneumothorax. No new focal consolidation. Unchanged cardiomediastinal silhouette. Primary Interpreting Staff: AGUSTO LIPSCOMB, RADIOLOGIST (Front Line Leader) /AGUSTO HOOVER [facility] Pathology Reports: +/- 30 days of [...] the Encounter. The data comes from all [place] treatment facilities. Date/Time Pathology Report Provider Source Nov 13, 2023 06:10 PM LR MICROBIOLOGY RE PORT: Accession [UID]: [id number] [[id number]] Received: Nov 13, 2023@18:22 Collection sample: B [...] --=--=--=--=--=--=-- Performing Laboratory: Bacteriology Report [facility] By: [facility] [address] [place] [address]# [id number] [facility] [address] [place] [address] [facility] Nov 13, 2023 06:05 PM LR MICROBIOLOGY RE PORT: Accession [UID]: [id number] [[id number]] Received: Nov 13, 2023@18:23 Collection sample: B [...] Bacteriology Report Performed By: HANNY BAEZ [address] [facility] CLIA# [id number] [address] [facility] [address] [place] [address] [facility]
--- OUTSIDE RECORDS SUMMARY | 2024-05-17 21:52 | XMS_ITS ---
[place] DAILY HOSPITALIZATION DATA [facility] Encounter Summary Created on: May 17, 2024 JESUS ABRAHAM : 1935 Sex: Male Author Name [facility] ([place] Organization [facility] Address [address] [place] [address] Care Team Providers Care Global Sales Executive Name Role Phone MEAGHAN QUINTEROS Primary Care [...] PART B Aug 12, 2001 PART B [id number] [phone] JESUS ABRAHAM PATIENT MEDICARE (WNR) MEDICARE (M) PART A Aug 12, 2001 PART A [id number] JESUS ABRAHAM PATIENT Selected Encounter This section includes the information on record at [place] for the Encounter. Date/Time Encounter Type Encounter Description Reason Pro vider Source Nov 14, 2023 01:41 PM Inpatient Visit DAILY HOSPITALIZATION DATA SANDY [...] 20 appointments. The data comes from all [facility]. Appointment Date/Time Appointment Type Appointme nt Facility Name Nov 23, 2023 09:00 AM AMBULATORY - MEDICINE [facility] Nov 23, 2023 10:00 AM AMBULATORY - MEDICINE [facility] Nov 23, 2023 11:30 AM AMBULATORY - MEDICINE [facility] Dec 24, 2023 02:45 PM AMBULATORY - SURGERY [facility] Jan 01, 2024 02:00 PM AMBULATORY - REHAB MEDICIN E [facility] Feb 29, 2024 01:30 PM AMBULATORY - MEDICINE [facility] Mar 03, 2024 09:15 AM AMBULATORY - MEDICINE [facility] Mar 08, 2024 01:30 PM AMBULATORY - MEDICINE [facility] Mar 10, 2024 12:45 PM AMBULATORY - SURGERY [facility] Apr 16, 2024 11:00 AM AMBULATORY - REHAB MEDICIN E [facility] May 15, 2024 11:00 AM AMBULATORY [...] of theEncounter. The data comes from all [facility]. Test Date/Time Test Type Test Details Facility Name Nov 13, 2023 09:10 PM Laboratory - Chemi stry Order MRSA SURVL NARES DNA NARES WC [facility] Nov 21, 2023 12:00 AM Laboratory - Chemi stry Order HGA1C BLOOD SP [facility] Nov 21, 2023 12:00 AM Laboratory - Chemi stry Order VITAMIN D, 25-HYDROXY GOLD/RED SST SERUM SP [facility] Lab Results: +/- 30 days of [...] Comment Nov 14, 2023 05:33 AM [facility] TSH W/ REFLEX FT4 (STL) Specimen Type: PLASMA No comment entered. Ordering Provider: NAYLA DUNN Report Released Date/Time: Nov 14, 2023 04:23 AM Reporting Lab: [facility] [address] [facility] [address] Performing Lab: [facility] [address] [facility] [address] TSH 3.546 u[IU]/mL 0.47-5 Nov 14, 2023 05:33 AM [facility] PHOSPHOROUS Specimen Type: PLASMA Comment: No hemolysis noted. Ordering Provider: NAYLA DUNN Report Released Date/Time: Nov 14, 2023 04:23 AM Reporting Lab: [facility] [address] [facility] [address] Performing Lab: [facility] [address] [facility] [address] PHOSPHOROUS 2.9 mg/dL 2.3-4.7 Nov 14, 2023 05:33 AM [facility] MAGNESIUM Specimen Type: PLASMA Comment: No hemolysis noted. Ordering Provider: NAYLA DUNN Report Released Date/Time: Nov 14, 2023 04:23 AM Reporting Lab: [facility] [address] [facility] [address] Performing Lab: [facility] [address] [facility] [address] MAGNESIUM 2.1 mg/dL 1.6-2.6 Nov 14, 2023 05:33 AM [facility] BASIC METABOLIC PANEL Specimen Type: PLASMA Comment: No hemolysis noted. Ordering Provider: NAYLA DUNN Report Released Date/Time: Nov 14, 2023 04:23 AM Reporting Lab: [place] [address] [address] Performing Lab: [address] [address] CREATININE 0.78 mg/dL 0.7-1.3 UREA NITROGEN 12.0 mg/dL 9.0-25.0 GLUCOSE 83 mg/dL 72-99 SODIUM 136 meq/L 136-145 POTASSIUM 4.4 meq/L 3.5-5 CHLORIDE 103 meq/L 98-107 CARBON DIOXIDE 26 meq/L 22-31 CALCIUM 8.8 mg/dL 8.4-10.4 EGFR (CKD-EPI 2020) 86.3 >60 Nov 14, 2023 05:33 AM [facility] CBC Specimen Type: BLOOD Comment: Manual diff performed on 11/13/23 Ordering Provider: NAYLA DUNN Report Released Date/Time: Nov 14, 2023 04:23 AM Reporting Lab: [address] [address] Performing Lab: [address] [address] WBC 12.8 10*3/uL H 3.6-11.2 RBC 3.87 [...] 0.00-0.20 Nov 14, 2023 01:30 AM [facility] TROPONIN I Specimen Type: PLASMA No comment entered. Ordering Provider: NAYLA DUNN Report Released Date/Time: Nov 14, 2023 01:10 AM Reporting Lab: [facility] [address] [facility] [address] Performing Lab: [facility] [address] [place] [address] TROPONIN I 0.044 ng/mL H 0-0.033 Nov 13, 2023 10:00 PM [facility] MRSA SURVL NARES DNA Specimen Type: [...] 13, 2023 09:10 PM Reporting Lab: [facility] [address] [place] [address] Performing Lab: [address] [address] MRSA SURVL NARES DNA Negative Negative Nov 13, 2023 07:10 PM [facility] TROPONIN I Specimen Type: PLASMA No comment entered. Ordering Provider: CYRUS EVANS Report Released Date/Time: Nov 13, 2023 06:56 PM Reporting Lab: [facility] [address] [place] [address] Performing Lab: [address] [address] TROPONIN I 0.045 ng/mL H 0-0.033 Nov 13, 2023 06:20 PM [facility] BLOOD GAS PANEL ABG (STL) Specimen Type: VENOUS BLOOD Comment: Test Performed by: [id number] Meter #: [id number] Ordering Provider: CYRUS EVANS Report Released Date/Time: Nov 13, 2023 06:20 PM Reporting Lab: [facility] [address] [place] [address] Performing Lab: [address] [address] GEM PH 7.38 7.31-7.41 GEM PCO2 52 [...] 37.0 Nov 13, 2023 06:15 PM [facility] COVID-19 DIAGNOSTIC (FLU/RSV)([facility]) Specimen Type: NASOPHARYNX Comment: Qualitative [...] Nov 13, 2023 03:21 PM Reporting Lab: [address] [address] Performing Lab: [facility] [address] [facility] [address] INFLUENZA A Negative Negative INFLUENZA B Negative Negative COVID-19 (L-PB) Not Detected Not Detected RSV (Cepheid) NEGATIVE Negative Nov 13, 2023 06:00 PM [facility] APTT Specimen Type: PLASMA No comment entered. Ordering Provider: CYRUS EVANS Report Released Date/Time: Nov 13, 2023 03:21 PM Reporting Lab: [place] [address] [facility] [address] Performing Lab: [address] [address] APTT 33.7 s 26.7-39.9 Nov 13, 2023 06:00 PM [facility] PT/INR NEW ([facility]) Specimen Type: PLASMA No comment entered. Ordering Provider: CYRUS EVANS Report Released Date/Time: Nov 13, 2023 03:21 PM Reporting Lab: [facility] [address] [facility] [address] Performing Lab: [address] [address] PROTIME 12.7 s H 9.4-12.5 INR VALUE 1.1 {INR} Nov 13, 2023 04:59 PM [facility] URINALYSIS W/ CX REFLEX ([facility]) Specimen Type: URINE No comment entered. Ordering Provider: CYRUS EVANS Report Released Date/Time: Nov 13, 2023 03:12 PM Reporting Lab: [place] [address] [facility] [address] Performing Lab: [address] [address] URINE COLOR Yellow Yellow U.BILIRUBIN Negative mg/dL [...] 9 Nov 13, 2023 02:20 PM [facility] TROPONIN I Specimen Type: PLASMA Comment: No hemolysis noted. Ordering Provider: CYRUS EVANS Report Released Date/Time: Nov 13, 2023 02:14 PM Reporting Lab: [address] [address] Performing Lab: [address] [address] TROPONIN I 0.044 ng/mL H 0-0.033 Nov 13, 2023 02:20 PM [facility] COMPREHENSIVE METABOLIC PANEL Specimen Type: PLASMA Comment: No hemolysis noted. Ordering Provider: CYRUS EVANS Report Released Date/Time: Nov 13, 2023 02:14 PM Reporting Lab: [address] [address] Performing Lab: [address] [address] CREATININE 1.17 mg/dL 0.7-1.3 UREA NITROGEN 12.7 [...] 60.3 >60 Nov 13, 2023 02:20 PM [facility] CBC Specimen Type: BLOOD No comment entered. Ordering Provider: CYRUS EVANS Report Released Date/Time: Nov 13, 2023 02:14 PM Reporting Lab: [facility] [address] [facility] [address] Performing Lab: [facility] [address] [facility] [address] WBC 12.5 10*3/uL H 3.6-11.2 RBC 4.21 [...] Source Nov 14, 2023 09:15 AM 0 [facility] Nov 14, 2023 08:10 AM 98.4 70 119/62 18 95 [facility] Nov 14, 2023 06:10 AM 97 66 121/70 18 96 0 [facility] Nov 14, 2023 12:51 AM 0 [facility] Social History: Smoking Status [...] AM ORYX ADMIT TOBACCO SCREEN NO [facility] Tobacco Use History This section includes a history of the smoking, or tobacco-related health factors, that were collected on or before the date of the Encounter. The data comes from the [place] facility where the Encounter took place. Date/Time Smoking Status/Tobacco Use Comment F acility Aug 04, 2022 11:30 AM VA-TOBACCO NEVER USED [facility] Mar 11, 2021 10:30 AM VA-TOBACCO FORMER USER [facility] Mar 11, 2021 10:30 AM VA-TOBACCO QUIT 15 YRS OR MORE [facility] Apr 19, 2018 09:07 AM VA-TOBACCO FORMER USER [facility] Apr 19, 2018 09:07 AM VA-TOBACCO QUIT 15 YRS OR MORE [facility] Jul 24, 2017 08:16 AM QUIT TOBACCO >7 YEARS AGO [facility] Apr 16, 2017 12:43 PM QUIT TOBACCO >7 YEARS AGO [facility] Feb 01, 2017 11:47 AM LIFETIME NON-USER OF TOBACCO [facility] Nov 15, 2016 09:00 AM QUIT TOBACCO >7 YEARS AGO [facility] September 11, 2016 06:27 PM QUIT TOBACCO >7 YEARS AGO [facility] Dec 09, 2015 10:17 AM QUIT TOBACCO >7 YEARS AGO [facility] Jan 05, 2015 08:22 AM CURRENT TOBACCO USER [facility] Jan 05, 2015 08:22 AM TOBACCO MEDS OFFER ED BUT DECLINED [facility] Mar 18, 2014 10:40 AM CURRENT TOBACCO USER [facility] Mar 18, 2014 10:40 AM TOBACCO MEDS OFFER ED BUT DECLINED [facility] Nov 04, 2013 09:40 AM CURRENT TOBACCO USER [facility] Nov 26, 2012 08:10 AM QUIT TOBACCO >7 YEARS AGO [facility] May 03, 2009 08:45 AM QUIT TOBACCO >7 YEARS AGO [facility] Jul 06, 2008 08:46 AM CURRENT TOBACCO USER [facility] Jul 25, 2007 12:30 PM QUIT TOBACCO >12 M O & <7 YRS AGO [facility] Jun 07, 2006 09:21 AM CURRENT TOBACCO USER [facility] Jun 07, 2006 09:21 [facility] Aug 25, 2005 11:01 AM CURRENT TOBACCO USER [facility] Aug 25, 2005 11:01 AM TOBACCO CONTEMPLATION STAGE [facility] Oct 25, 2004 10:18 AM CURRENT NON-TOBACC O USER-HX OF USE [facility] Oct 25, 2004 10:18 AM TOBACCO TERMINATION STAGE [facility] Aug 24, 2003 10:43 AM CURRENT NON-TOBACC O USER-HX OF USE [facility] Aug 24, 2003 10:43 AM TOBACCO TERMINATION STAGE [facility] Aug 05, 2002 09:55 AM CURRENT NON-TOBACC O USER-HX OF USE QUIT [facility] Apr 15, 2001 08:28 AM CURRENT NON-TOBACC O USER-HX OF USE quit in 1979 [facility] Advance Directives: All historical and [...] 19, 2023 ADVANCE DIRECTIVE WANG MURILLO [facility] Dec 12, 2022 RESCINDED ADVANCE DIRECTIVE JITENDRA MEADOWS [facility] September 12, 2016 ADVANCE DIRECTIVE DISCUSSION YVETTE MEADOWS [facility] Radiology Reports: +/- 30 days of [...] NM MYOCARDIAL P SPECT STRESS/REST-P: JESUS ABRAHAM [id number] -1935 M Exm Date: NOV 23, 2023@09:03 Req Phys: MEAGHAN QUINTEROS Loc: -PC TM-C SAME DAY CLINIC (Re Img Loc: -NUCLEAR MEDICINE Service: Unknown [facility] [address] [place] [address] (Case [id number] COMPLETE) NM MYOCARDIAL PERF SPECT STRESS/R(NM Detailed) CPT:97605 Reason for Study: CHEST PAIN, ASSESS SUSPECTED [...] 23, 2023 Date Verified: NOV 23, 2023 Rose Grader E-Sig:/ES/AGUSTO LIPSCOMB Report: PATIENT NAME: JESUS ABRAHAM CASE #: [id number], [id number], [id number], [id number], [id number] EXAMINATION: Rest/Lexiscan Stress Gated SPECT Myocardial Imaging [...] code: 1000. Dictated by Rik Dorantes MD (Composition Molder), Rodney Smith MD (Composition Molder) IAgusto, have reviewed the images and report and concur with these findings. Primary Interpreting Staff: AGUSTO LIPSCOMB, RADIOLOGIST (Rose Grader) Primary Interpreting Resident: RIK DORANTES MD, PROTECTION OFFICER /AGUSTO SEN [facility] Nov 13, 2023 04:[address] HEAD W/O CONT: JESUS ABRAHAM [id number] -1935 M Exm Date: NOV 13, 2023@16:07 Req Phys: CYRUS EVANS Loc: [facility]-EMERGENCY DEPT 2ND SHIFT (R Img Loc: [facility]-CT IMAGING [facility] Service: Unknown [facility], [facility] [address] [place] [address] (Case [id number] COMPLETE) CT HEAD W/O CONT (CT Detailed) CPT:26395 Reason for Study: confusion Clinical History: Responsible Attending: cyrus evans Attending Contact Number: [phone] Resident Contact Number: Allergies listed in CPRS chart: Patient has answered NKA Creatinine: CREATININE 1.17 mg/dL 11/13/2023 14:20 /eGFR: STL EGFR (within one year). CREATININE 1.17 mg/dL (11/13/23 14:20) Wt: 189.3 lb [85.87 kg] (10/18/2023 10:32) History of: Renal failure, chronic or acute renal disease: NO Report Status: Verified Date Reported: NOV 13, 2023 Date Verified: NOV 13, 2023 Rose Grader E-Sig: Report: CT HEAD W/O CONT HISTORY: [...] clinical concern, consider MRI. READING PHYSICIAN: Anjum [id number] 11/13/2023 15:14 PDT [facility] National Teleradiology Program [phone] (For Medical Practitioner Use Only) Attention Patients / Veterans: If you have questions or concerns about these test results, please contact your ordering provider or primary care team. Primary Interpreting Staff: RADIOLOGY,OUTSIDE SERVICE, Staff Physician / RADIOLOGY,OUTSIDE SERVICE [facility] Nov 13, 2023 03:59 PM CHEST X-RAY, 2 VIEWS: JESUS ABRAHAM [id number] -1935 M Exm Date: NOV 13, 2023@15:59 Req Phys: CYRUS EVANS Pat Loc: -EMERGENCY DEPT 2ND SHIFT (R Img Loc: -MAIN RADIOLOGY SUITE Service: [facility], [facility] [address] [place] [address] (Case [id number] COMPLETE) CHEST X-RAY, 2 VIEWS (RAD Detailed) CPT:61050 Reason for Study: chest pain Clinical History: Report Status: Verified Date Reported: NOV 13, 2023 Date Verified: NOV 13, 2023 Rose Grader E-Sig:/ES/AGUSTO LIPSCOMB Report: INDICATION: chest pain COMPARISON: None TECHNIQUE: Chest 2 views Impression: No large pleural effusion or sizable pneumothorax. No new focal consolidation. Unchanged cardiomediastinal silhouette. Primary Interpreting Staff: AGUSTO LIPSCOMB, RADIOLOGIST (Rose Grader) /AGUSTO HOOVER [facility] Pathology Reports: +/- 30 days [...] RE PORT: Accession [UID]: [id number] [[id number]] Received: Nov 13, 2023@18:22 Collection sample: B [...] --=--=--=--=--=--=-- Performing Laboratory: Bacteriology Report Per[facility] By: [facility] [address] [place] [address]# [id number] [address] [facility] [address] [place] [address] [facility] Nov 13, 2023 06:05 PM LR MICROBIOLOGY RE PORT: Accession [UID]: [id number] [[id number]] Received: Nov 13, 2023@18:23 Collection sample: B [...] Bacteriology Report Performed By: HANNY BAEZ [address] [facility] CLIA# [id number] [address] [facility] [address] [place] [address] [facility]
--- OUTSIDE RECORDS SUMMARY | 2024-05-17 21:52 | XMS_ITS ---
Author Name [facility] ([place]) Organization [facility] Address [address] [place] [address] Care Team Providers Care Party Chief Name Role Phone MEAGHAN QUINTEROS Primary Care [...] PART A Aug 12, 2001 PART A [id number] [phone] JESUS ABRAHAM PATIENT MEDICARE (WNR) MEDICARE (M) PART B Aug 12, 2001 PART B [id number] [phone] JESUS ABRAHAM PATIENT Selected Encounter This section includes the information on record at OR for the Encounter. Date/Time Encounter Type Encounter Description Reason Provider Source Nov 14, 2023 09:23 AM OT EVAL LOW COMPLEX 30 MIN OCCUPATIONAL THERAPY ICD-10-CM R27.0 Ataxia, unspecified NHI SAUCEDO [place] Encounter Template Text not used by OR Assessments - Encounter Diagnoses This section includes the primary and secondary diagnoses documented for the Encounter. Date/Time Primary/Secondary Diagnosis Diagnosis Name Provider Source Nov 14, 2023 11:40 AM PRIMARY Ataxia, unspecified NHI SAUCEDO [facility] Plan of Treatment: Future Appointments (+ 6 months) and Future Tests (+/- 45 days) The Plan of Treatment section includes future care activities for the patient from all [facility]. This section includes future appointments and future orders which are active, pending or scheduled. Future Appointments This section includes appointments that were scheduled to occur 6 months from the date of the Encounter, up to a maximum of 20 appointments. The data comes from all [facility]. Appointment Date/Time Appointment Type Appointme nt Facility Name Nov 23, 2023 09:00 AM AMBULATORY - MEDICINE [facility] Nov 23, 2023 10:00 AM AMBULATORY MEDICINE [facility] Nov 23, 2023 11:30 AM AMBULATORY MEDICINE [facility] Dec 24, 2023 02:45 PM AMBULATORY - SURGERY [facility] Jan 01, 2024 02:00 PM AMBULATORY - REHAB MEDICIN E [facility] Feb 29, 2024 01:30 PM AMBULATORY - MEDICINE [facility] Mar 03, 2024 09:15 AM AMBULATORY - MEDICINE [facility] Mar 08, 2024 01:30 PM AMBULATORY - MEDICINE [facility] Mar 10, 2024 12:45 PM AMBULATORY - SURGERY [facility] Apr 16, 2024 11:00 AM AMBULATORY - REHAB [facility] May 15, 2024 11:00 AM AMBULATORY - SURGERY [facility] Active, Pending, and Scheduled Orders This section includes a listing of several types of active, pending, and scheduled orders, including clinic medications orders, diagnostic test orders, procedure orders and consult orders; where the start date of the order is 45 days before the date of the Encounter or 45 days after the date of theEncounter. The data comes from all [facility]. Test Date/Time Test Type Test Details Facility Name Nov 13, 2023 09:10 PM Laboratory - Chemi stry Order MRSA SURVL NARES DNA NARES WC [facility] Nov 21, 2023 12:00 AM Laboratory - Chemi stry Order HGA1C BLOOD SP [facility] Nov 21, 2023 12:00 AM Laboratory - Chemi stry Order VITAMIN D, 25-HYDROXY GOLD/RED SST SERUM SP [facility] Lab Results: +/- 30 days [...] Range Comment Nov 14, 2023 05:33 AM [facility] PHOSPHOROUS Specimen Type: PLASMA Comment: No hemolysis noted. Ordering Provider: NAYLA DUNN Report Released Date/Time: Nov 14, 2023 04:23 AM Reporting Lab: [facility] [address] [facility] [address] Performing Lab: [address] [address] PHOSPHOROUS 2.9 mg/dL 2.3-4.7 Nov 14, 2023 05:33 AM [facility] TSH W/ REFLEX FT4 (STL) Specimen Type: PLASMA No comment entered. Ordering Provider: NAYLA DUNN Report Released Date/Time: Nov 14, 2023 04:23 AM Reporting Lab: [facility] [address] [facility] [address] Performing Lab: [facility] [address] [facility] [address] TSH 3.546 u[IU]/mL 0.47-5 Nov 14, 2023 05:33 AM [facility] MAGNESIUM Specimen Type: PLASMA Comment: No hemolysis noted. Ordering Provider: NAYLA DUNN Report Released Date/Time: Nov 14, 2023 04:23 AM Reporting Lab: [facility] [address] [facility] [address] Performing Lab: [facility] [address] [facility] [address] MAGNESIUM 2.1 mg/dL 1.6-2.6 Nov 14, 2023 05:33 AM [facility] BASIC METABOLIC PANEL Specimen Type: PLASMA Comment: No hemolysis noted. Ordering Provider: NAYLA DUNN Report Released Date/Time: Nov 14, 2023 04:23 AM Reporting Lab: [address] [address] Performing Lab: [address] [address] CREATININE 0.78 mg/dL 0.7-1.3 UREA NITROGEN 12.0 mg/dL 9.0-25.0 GLUCOSE 83 mg/dL 72-99 SODIUM 136 meq/L 136-145 POTASSIUM 4.4 meq/L 3.5-5 CHLORIDE 103 meq/L 98-107 CARBON DIOXIDE 26 meq/L 22-31 CALCIUM 8.8 mg/dL 8.4-10.4 EGFR (CKD-EPI 2020) 86.3 >60 Nov 14, 2023 05:33 AM [facility] CBC Specimen Type: BLOOD Comment: Manual diff performed on 11/13/23 Ordering Provider: NAYLA DUNN Report Released Date/Time: Nov 14, 2023 04:23 AM Reporting Lab: [address] [address] Performing Lab: [address] [address] WBC 12.8 10*3/uL H 3.6-11.2 RBC 3.87 [...] 10*3/uL 0.00-0.20 Nov 14, 2023 01:30 AM [facility] TROPONIN I Specimen Type: PLASMA No comment entered. Ordering Provider: NAYLA DUNN Report Released Date/Time: Nov 14, 2023 01:10 AM Reporting Lab: [address] [address] Performing Lab: [address] [address] TROPONIN I 0.044 ng/mL H 0-0.033 Nov 13, 2023 10:00 PM [facility] MRSA SURVL NARES DNA Specimen [...] Nov 13, 2023 09:10 PM Reporting Lab: [address] [address] Performing Lab: [address] [address] MRSA SURVL NARES DNA Negative Negative Nov 13, 2023 07:10 PM [facility] TROPONIN I Specimen Type: PLASMA No comment entered. Ordering Provider: CYRUS EVANS Report Released Date/Time: Nov 13, 2023 06:56 PM Reporting Lab: [address] [address] Performing Lab: [facility] [address] [facility] [address] TROPONIN I 0.045 ng/mL H 0-0.033 Nov 13, 2023 06:20 PM [facility] BLOOD GAS PANEL ABG ([facility]) Specimen Type: VENOUS BLOOD Comment: Test Performed by: [id number] Meter #: [id number] Ordering Provider: CYRUS EVANS Report Released Date/Time: Nov 13, 2023 06:20 PM Reporting Lab: [facility] [address] [facility] [address] Performing Lab: [facility] [address] [place] [phone] GEM PH 7.38 7.31-7.41 GEM PCO2 52 [...] TEMP 37.0 Nov 13, 2023 06:15 PM [facility] COVID-19 DIAGNOSTIC (FLU/RSV)([facility]) Specimen Type: NASOPHARYNX Comment: Qualitative real-time PCR [...] Nov 13, 2023 03:21 PM Reporting Lab: [facility] [address] [place] [phone] Performing Lab: [facility] [address] [place] [address] INFLUENZA A Negative Negative INFLUENZA B Negative Negative COVID-19 (STL-PB) Not Detected Not Detected RSV (Cepheid) NEGATIVE Negative Nov 13, 2023 06:00 PM [facility] APTT Specimen Type: PLASMA No comment entered. Ordering Provider: CYRUS EVANS Report Released Date/Time: Nov 13, 2023 03:21 PM Reporting Lab: [address] [address] Performing Lab: [address] [address] APTT 33.7 s 26.7-39.9 Nov 13, 2023 06:00 PM [facility] PT/INR NEW (L-DE) Specimen Type: PLASMA No comment entered. Ordering Provider: CYRUS EVANS Report Released Date/Time: Nov 13, 2023 03:21 PM Reporting Lab: [address] [address] Performing Lab: [address] [address] PROTIME 12.7 s H 9.4-12.5 INR VALUE 1.1 {INR} Nov 13, 2023 04:59 PM [facility] URINALYSIS W/ CX REFLEX (L-PB) Specimen Type: URINE No comment entered. Ordering Provider: CYRUS EVANS Report Released Date/Time: Nov 13, 2023 03:12 PM Reporting Lab: [facility] [address] [place] [address] Performing Lab: [address] [address] URINE COLOR Yellow Yellow U.BILIRUBIN Negative mg/dL [...] 1.005-1.02 9 Nov 13, 2023 02:20 PM [facility] TROPONIN I Specimen Type: PLASMA Comment: No hemolysis noted. Ordering Provider: CYRUS EVANS Report Released Date/Time: Nov 13, 2023 02:14 PM Reporting Lab: [facility] [address] [facility] [address] Performing Lab: [address] [address] TROPONIN I 0.044 ng/mL H 0-0.033 Nov 13, 2023 02:20 PM [facility] COMPREHENSIVE METABOLIC PANEL Specimen Type: PLASMA Comment: No hemolysis noted. Ordering Provider: CYRUS EVANS Report Released Date/Time: Nov 13, 2023 02:14 PM Reporting Lab: [place] [id number] [facility] [address] Performing Lab: [address] [address] CREATININE 1.17 mg/dL 0.7-1.3 UREA NITROGEN 12.7 [...] 60.3 >60 Nov 13, 2023 02:20 PM [facility] CBC Specimen Type: BLOOD No comment entered. Ordering Provider: CYRUS EVANS Report Released Date/Time: Nov 13, 2023 02:14 PM Reporting Lab: [facility] [address] [facility] [address] Performing Lab: [facility] [address] [facility] [address] WBC 12.5 10*3/uL H 3.6-11.2 RBC 4.21 [...] Source Nov 14, 2023 09:15 AM 0 [facility] Nov 14, 2023 08:10 AM 98.4 70 119/62 18 95 [facility] Nov 14, 2023 06:10 AM 97 66 121/70 18 96 0 [facility] Nov 14, 2023 12:51 AM 0 [facility] Social History: Smoking Status (Most current) and Tobacco Use (All prior to encounter date) This section includes the most current, and the historical, smoking and tobacco- related health factors from the OR facility where the Encounter took place. Current Smoking Status This section includes the most current smoking, or tobacco-related health factor, from the OR facility where the Encounter took place. Date/Time Current Smoking Status Comment Dena sarkar Nov 14, 2023 01:18 AM ORYX ADMIT TOBACCO SCREEN NO [facility] Tobacco Use History This section includes a history of the smoking, or tobacco-related health factors, that were collected on or before the date of the Encounter. The data comes from the OR facility where the Encounter took place. Date/Time Smoking Status/Tobacco Use Comment F acility Aug 04, 2022 11:30 AM VA-TOBACCO NEVER USED [facility] Mar 11, 2021 10:30 AM VA-TOBACCO FORMER USER [facility] Mar 11, 2021 10:30 AM VA-TOBACCO QUIT 15 YRS OR MORE [facility] Apr 19, 2018 09:07 AM VA-TOBACCO FORMER USER [facility] Apr 19, 2018 09:07 AM VA-TOBACCO QUIT 15 YRS OR MORE [facility] Jul 24, 2017 08:16 AM QUIT TOBACCO >7 YEARS AGO [facility] Apr 16, 2017 12:43 PM QUIT TOBACCO >7 YEARS AGO [facility] Feb 01, 2017 11:47 AM LIFETIME NON-USER OF TOBACCO [facility] Nov 15, 2016 09:00 AM QUIT TOBACCO >7 YEARS AGO [facility] September 11, 2016 06:27 PM QUIT TOBACCO >7 YEARS AGO [facility] Dec 09, 2015 10:17 AM QUIT TOBACCO >7 YEARS AGO [facility] Jan 05, 2015 08:22 AM CURRENT TOBACCO USER [facility] Jan 05, 2015 08:22 AM TOBACCO MEDS OFFER ED BUT DECLINED [facility] Mar 18, 2014 10:40 AM CURRENT TOBACCO USER [facility] Mar 18, 2014 10:40 AM TOBACCO MEDS OFFER ED BUT DECLINED [facility] Nov 04, 2013 09:40 AM CURRENT TOBACCO USER [facility] Nov 26, 2012 08:10 AM QUIT TOBACCO >7 YEARS AGO [facility] May 03, 2009 08:45 AM QUIT TOBACCO >7 YEARS AGO [facility] Jul 06, 2008 08:46 AM CURRENT TOBACCO USER [facility] Jul 25, 2007 12:30 PM QUIT TOBACCO >12 M O & <7 YRS AGO [facility] Jun 07, 2006 09:21 AM CURRENT TOBACCO USER [facility] Jun 07, 2006 09:21 [facility] Aug 25, 2005 11:01 AM CURRENT TOBACCO USER [facility] Aug 25, 2005 11:01 AM TOBACCO CONTEMPLATION STAGE [facility] Oct 25, 2004 10:18 AM CURRENT NON-TOBACC O USER-HX OF USE [facility] Oct 25, 2004 10:18 AM TOBACCO TERMINATION STAGE [facility] Aug 24, 2003 10:43 AM CURRENT NON-TOBACC O USER-HX OF USE [facility] Aug 24, 2003 10:43 AM TOBACCO TERMINATION STAGE [facility] Aug 05, 2002 09:55 AM CURRENT NON-TOBACC O USER-HX OF USE QUIT [facility] Apr 15, 2001 08:28 AM CURRENT NON-TOBACC O USER-HX OF USE quit in 1979 [facility] Advance Directives: All historical and current Section Date Range: From patient's date of to the date document was created. This section includes ALL of a patient's completed or amended OR Advance and Rescinded Directives. The entries below indicate that a directive exists for the patient, but an actual copy is not included with this document. The data comes from all OR facilities. Date Advance Directives Provider Source Oct 19, 2023 ADVANCE DIRECTIVE WANG MURILLO [facility] Dec 12, 2022 RESCINDED ADVANCE DIRECTIVE JITENDRA MEADOWS [facility] September 12, 2016 ADVANCE DIRECTIVE DISCUSSION YVETTE MEADOWS [facility] Radiology Reports: +/- 30 days [...] the Encounter. The data comes from all OR treatment facilities. Date/Time Radiology Report Provider Source Nov 23, 2023 09:03 AM NM MYOCARDIAL P SPECT STRESS/REST-P: BARRINGTONFILOMENAJESUS [id number] -[id number] M Exm Date: NOV 23, 2023@09:03 Req Phys: MEAGHAN QUINTEROS Loc: [facility]-PC TM-C SAME DAY CLINIC (Re Img Loc: [facility]-NUCLEAR MEDICINE Service: Unknown [address] [address] (Case [id number] COMPLETE) NM MYOCARDIAL PERF SPECT STRESS/R(NM Detailed) CPT:61284 Reason for Study: CHEST PAIN, ASSESS SUSPECTED [...] 23, 2023 Date Verified: NOV 23, 2023 Actuary E-Sig:/ES/AGUSTO LIPSCOMB Report: PATIENT NAME: JESUS ABRAHAM CASE #: [id number], [id number] EXAMINATION: Rest/Lexiscan Stress Gated SPECT Myocardial Imaging [...] code: 1000. Dictated by Rik Brand MD (Complaint Manager), Rodney Smith MD (Complaint Manager) Agusto Elam, have reviewed the images and report and concur with these findings. Primary Interpreting Staff: AGUSTO LIPSCOMB, RADIOLOGIST (Actuary) Primary Interpreting Resident: RIK BRAND MD, DITCH DIGGER /AGUSTO SEN [facility] Nov 13, 2023 04:[address] HEAD W/O CONT: JESUS ABRAHAM [id number] -[id number] M Exm Date: NOV 13, 2023@16:07 Req Phys: CYRUS EVANS Loc: [facility]-EMERGENCY DEPT 2ND SHIFT (R Img Loc: [facility]-CT IMAGING [facility] Service: Unknown [facility], [address] [place] [address] (Case [id number] COMPLETE) CT HEAD W/O CONT (CT Detailed) CPT:34925 Reason for Study: confusion Clinical History: Responsible Attending: cyrus evans Attending Contact Number: [phone] Resident Contact Number: Allergies listed in CPRS chart: Patient has answered NKA Creatinine: CREATININE 1.17 mg/dL 11/13/2023 14:20 /eGFR: STL EGFR (within one year). CREATININE 1.17 mg/dL (11/13/23 14:20) Wt: 189.3 lb [85.87 kg] (10/18/2023 10:32) History of: Renal failure, chronic or acute renal disease: NO Report Status: Verified Date Reported: NOV 13, 2023 Date Verified: NOV 13, 2023 Actuary E-Sig: Report: CT HEAD W/O CONT HISTORY: confusion COMPARISON: CT head 06/11/2019 TECHNIQUE: Contiguous axial CT images from the level of the skull base through the skull apex, performed at the local OR facility. 269 images were received by the OR National Teleradiology Program (NTP) for interpretation. RADIATION [...] concern, consider MRI. READING PHYSICIAN: Anjum Guevara -[phone] 11/13/2023 15:14 PDT [facility] National Teleradiology Program [phone] (For Medical Practitioner Use Only) Attention Patients / Veterans: If you have questions or concerns about these test results, please contact your ordering provider or primary care team. Primary Interpreting Staff: RADIOLOGY,OUTSIDE SERVICE, Staff Physician / RADIOLOGY,OUTSIDE SERVICE [facility] Nov 13, 2023 03:59 PM CHEST X-RAY, 2 VIEWS: JESUS ABRAHAM [id number] -[id number] M Exm Date: NOV 13, 2023@15:59 Req Phys: CYRUS EVANS Loc: -EMERGENCY DEPT 2ND SHIFT (R Img Loc: -MAIN RADIOLOGY SUITE Service: [facility], [facility] [address] [place] [address] (Case [id number] COMPLETE) CHEST X-RAY, 2 VIEWS (RAD Detailed) CPT:46041 Reason for Study: chest pain Clinical History: Report Status: Verified Date Reported: NOV 13, 2023 Date Verified: NOV 13, 2023 Actuary E-Sig:/ES/AGUSTO LIPSCOMB Report: INDICATION: chest pain COMPARISON: None TECHNIQUE: Chest 2 views Impression: No large pleural effusion or sizable pneumothorax. No new focal consolidation. Unchanged cardiomediastinal silhouette. Primary Interpreting Staff: AGUSTO LIPSCOMB, RADIOLOGIST (Actuary) /AGUSTO HOOVER [facility] Pathology Reports: +/- 30 [...] the Encounter. The data comes from all OR treatment facilities. Date/Time Pathology Report Provider Source Nov 13, 2023 06:10 PM LR MICROBIOLOGY RE PORT: Accession [UID]: [id number] [[id number]] Received: Nov 13, 2023@18:22 Collection sample: Ivon Humphrey BLD. BOTTLE (SET 2)Collection date: Nov 13, [...] Performed By: [facility] [address] [place] [address] CLIA# [id number] [address] [place] [id number] [facility] Nov 13, 2023 06:05 PM LR MICROBIOLOGY RE PORT: Accession [UID]: [id number] [[id number]] Received: Nov 13, 2023@18:23 Collection sample: Ivon D BLD. BOTTLE Collection date: Nov 13, [...] --=--=--=--=--=--=-- Performing Laboratory: Bacteriology Report Performed By: [facility] CLIA# [id number] [address] [facility] [address] [place] [address] [facility] Encounter Notes: All associated encounter notes This section contains the clinical notes associated to the Encounter. Date/Time Encounter Note(s) Provider Source Nov 14, 2023 09:35 AM OCCUPATIONAL MEDIC INE CONSULT: [facility] TITLE: OT CONSULT [facility] STANDARD TITLE: OCCUPATIONAL MEDICINE CONSULT DATE OF NOTE: NOV 14, 2023@09:35 ENTRY DATE: NOV 14, 2023@11:29:08 AUTHOR: NHI SAUCEDO EXP COSIGNER: URGENCY: STATUS: COMPLETED Initial Occupational Therapy Note Date of initiation of treatment: NOV 14, 2023 Treatment visit #: 1 Diagnosis: Ataxia, unspecified(ICD-10-CM R27.0) Referring Physician: NAYLA DUNN Order/Reason for consult: New ataxia and dizziness. Unclear if patient is safe at home due to gait Precautions: WBAT=Weight Bearing as Tolerated Total Treatment Time: [phone] (OT eval 8 minutes) -Other people involved in treatment [x]None []Included: Reason for Admission: dizziness, chest pain Past medical history: 1) Coronary artery disease (SNOMED CT 73945995) 2) Hyperlipidaemia (SNOMED CT 51331722) 3) Allergic rhinitis * (ICD-9-CM 477.9) 4) Carcinoma, Basal Cell 5) Osteoarthritis of knee (SNOMED CT 101881115) 6) Age related macular degeneration (SNOMED CT 910435176) 7) Colonic Polyps 8) Diabetes Mellitus without mention of Complication, type II or unspecified type, 9) Benign essential hypertension (SNOMED CT 8385196) 10) Pain in joint involving shoulder region [...] 780.79) 19) History/Skin/CA 20) Dermatitis (SNOMED CT 083740893) 21) Dry skin (SNOMED CT 87486770) 22) Chest pain 23) Exudative age-related macular degeneration 24) Hyperlipidemia 25) Diabetes mellitus 26) Insomnia 27) Osteoarthritis of knee Living Situations/Previous ADL Level: Lives with: ( has an CASHIER ASSOCIATE that helps with her ADLs) House Type: senior citizen apartment Stairs: none Toilet: standard with RTS; takes DME off prior to use as DMEs are for his Shower: walk-in shower with seat, grab bars and HHSH Self-Care: independent Ambulation device: none IADLs: independent Driving: yes but considering stopping Medication management: independent Abbreviations: WFL=Within Functional Limits; (I)=Independent; A=Assist; A/PROM=Act.Rom/Passive ROM; STR=Strength; SBA=Stand by Assist; NT=Not Tested; VC=Verbal Cues; FIELD MARKETING REPRESENTATIVE=Prior To Admission; CNH=Community Fci; CGA=Contact Guard Assist Resident's personal goals are: go home SUBJECTIVE: I've been ready to go home before I even got here. Pain: none reported Falls: probably over the years, reports he just gets back up independently OBJECTIVE: ambulating in room at OT entry UE AROM: WFL UE STRENGTH: WFL for ADLs Hand A/PROM/Coordination/Merchandise Flow Manager: WFL for ADLs Tone/Edema/other: none noted in BUE Endurance: fair Mental Status: - Oriented x 4 - Short Blessed Test: Not completed due to time constraint as being taken off the floor for testing. IRF-RYAN Section GG Self-Care and Mobility: MORRIS: 6: Independent, 5: Setup or Cleanup Assistance. 4: Supervision or Touching Assistance. 3: Partial/Moderate Assistance. 2: Substantial/Maximal Assistance. 1: Dependent. 07: Refused. 09: Not Applicable-Did not perform this activity prior. 10: Not Attempted-Due to environmental limitations. 88: Not Attempted-Due to medical condition/safety concerns. SELF-CARE Initial Eatin Oral Hygiene: 10 Toilet Hygiene: 10 Wash Upper Body: 10 Shower/Bathe Self: 10 UB Dressin LB Dressin Andrea/Doff Footwear: 6 Comments: independent with self care tasks MOBILITY Roll L+R: 6 Sit to Lyin Lying to Sitting EOB: 6 Sit to Stand: 6 Chair/Bed to Chair Tx: 6 Toilet Transfer: 6 Comments: independent with mobility Equipment: none issued this date. Education Patient was informed of the purpose and benefit of OT. Patient educated on activity recommendations while in hospital. ASSESSMENT: [place] is 88 y/o male admitted for dizziness and chest pain. At baseline reports independence with ADLs, IADLs and functional mobility. Currently appears to be functioning near/at baseline, independently completing self care tasks and functional transfers in room. No further DME needs. [place] demonstrates ability to discharge home at prior level when medically stable. No further acute OT needs indicated at this time. DISCHARGE RECOMMENDATION: []Further Inpatient Rehabilitation []04/12 Care []04/12 Supervision [x]Home with []No further needs []Home Health OT [x]Prior Level of Assist []Outpatient OT []Assist for IADLs []Other: Barriers to achieving goals: - PLAN: Discharge [facility] OT. If this is the last OT session prior to discharge, this documentation also serves as discharge summary. Occupational Profile and History [x] Brief (low) [] Expanded (moderate) [] Extensive (high) Performance deficits identified: [] ADLs [] IADLs [] Functional mobility [] Range of motion [] Muscle Strength [] Functional Endurance [] Functional Balance [] Fine motor coordination [] Adaptive equipment needs [] Cognition [] Other (please specify: ___) Morris: 1-3 performance deficits = Low complexity 3-5 performance deficits = moderate complexity 5 or more performance deficits = high complexity Level of Clinical Decision Making [x] problem-focused assessment [] detailed assessment [] comprehensive assessment --Therefore the level of complexity of this patient was: [x] Low [] Moderate [] High PATIENT EDUCATION Patient/Caregiver appeared ready for instruction (good eye contact, appropriate questions, active participation, etc.) Person(s) who received education: Patient Education Topic/Teaching Needs: Rehabilitation and Habilitation Benefit and purpose of OT Methods used included: Oral: Verbal Teaching outcomes: Good level of understanding /es/ NHI SAUCEDO Occupational Therapist Signed: 11/14/2023 11:40 NHI SAUCEDO [facility]
--- OUTSIDE RECORDS SUMMARY | 2024-05-17 21:52 | XMS_ITS | Encounter Summary ---
Author Name [facility] [place] [facility] [place] Address [address] [place] [address] Care Team Providers Care Saturation Diver Name Role Phone MEAGHAN QUINTEROS Primary Care [...] PART B Aug 12, 2001 PART B [id number] [phone] JESUS ABRAHAM PATIENT MEDICARE (WNR) MEDICARE (M) PART A Aug 12, 2001 PART A [id number] [phone] JESUS ABRAHAM PATIENT Selected Encounter This section includes the information on record at [place] for the Encounter. 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 This section includes future appointments and future orders which are active, pending or scheduled. Future Appointments This section includes appointments that were scheduled to occur 6 months from the date of the Encounter, up to a maximum of 20 appointments. The data comes from all [facility]. Appointment Date/Time Appointment Type Appointme nt Facility Name Nov 23, 2023 09:00 AM AMBULATORY - MEDICINE [facility] Nov 23, 2023 10:00 AM AMBULATORY - MEDICINE [facility] Nov 23, 2023 11:30 AM AMBULATORY - MEDICINE [facility] Dec 24, 2023 02:45 PM AMBULATORY - SURGERY [facility] Jan 01, 2024 02:00 PM AMBULATORY - REHAB MEDICIN E [facility] Feb 29, 2024 01:30 PM AMBULATORY - MEDICINE [facility] Mar 03, 2024 09:15 AM AMBULATORY - MEDICINE [facility] Mar 08, 2024 01:30 PM AMBULATORY - MEDICINE [facility] Mar 10, 2024 12:45 PM AMBULATORY - SURGERY [facility] Apr 16, 2024 11:00 AM AMBULATORY - REHAB [facility] May 15, 2024 11:00 AM AMBULATORY - SURGERY [facility] Active, Pending, and Scheduled Orders This section includes a listing of several types of active, pending, and scheduled orders, including clinic medications orders, diagnostic test orders, procedure orders and consult orders; where the start date of the order is 45 days before the date of the Encounter or 45 days after the date of theEncounter. The data comes from all [facility]. Test Date/Time Test Type Test Details Facility Name Nov 13, 2023 09:10 PM Laboratory - Chemi stry Order MRSA SURVL NARES DNA NARES WC [facility] Nov 21, 2023 12:00 AM Laboratory - Chemi stry Order HGA1C BLOOD SP [facility] Nov 21, 2023 12:00 AM Laboratory - Chemi stry Order VITAMIN D, 25-HYDROXY GOLD/RED SST SERUM SP [facility] Lab Results: +/- 30 [...] Range Comment Nov 14, 2023 05:33 AM [facility] TSH W/ REFLEX FT4 (STL) Specimen Type: PLASMA No comment entered. Ordering Provider: NAYLA DUNN Report Released Date/Time: Nov 14, 2023 04:23 AM Reporting Lab: [facility] [address] [facility] [address] Performing Lab: [facility] [address] [facility] [address] TSH 3.546 u[IU]/mL 0.47-5 Nov 14, 2023 05:33 AM [facility] PHOSPHOROUS Specimen Type: PLASMA Comment: No hemolysis noted. Ordering Provider: NAYLA DUNN Report Released Date/Time: Nov 14, 2023 04:23 AM Reporting Lab: [facility] [address] [facility] [address] Performing Lab: [facility] [address] [facility] [address] PHOSPHOROUS 2.9 mg/dL 2.3-4.7 Nov 14, 2023 05:33 AM [facility] MAGNESIUM Specimen Type: PLASMA Comment: No hemolysis noted. Ordering Provider: NAYLA DUNN Report Released Date/Time: Nov 14, 2023 04:23 AM Reporting Lab: [facility] [address] [facility] [address] Performing Lab: [facility] [address] [facility] [address] MAGNESIUM 2.1 mg/dL 1.6-2.6 Nov 14, 2023 05:33 AM [facility] BASIC METABOLIC PANEL Specimen Type: PLASMA Comment: No hemolysis noted. Ordering Provider: NAYLA DUNN Report Released Date/Time: Nov 14, 2023 04:23 AM Reporting Lab: [address] [address] Performing Lab: [address] [address] CREATININE 0.78 mg/dL 0.7-1.3 UREA NITROGEN 12.0 mg/dL 9.0-25.0 GLUCOSE 83 mg/dL 72-99 SODIUM 136 meq/L 136-145 POTASSIUM 4.4 meq/L 3.5-5 CHLORIDE 103 meq/L 98-107 CARBON DIOXIDE 26 meq/L 22-31 CALCIUM 8.8 mg/dL 8.4-10.4 EGFR (CKD-EPI 2020) 86.3 >60 Nov 14, 2023 05:33 AM [facility] CBC Specimen Type: BLOOD Comment: Manual diff performed on 11/13/23 Ordering Provider: NAYLA DUNN Report Released Date/Time: Nov 14, 2023 04:23 AM Reporting Lab: [address] [address] Performing Lab: [address] [address] WBC 12.8 10*3/uL H 3.6-11.2 RBC 3.87 [...] 10*3/uL 0.00-0.20 Nov 14, 2023 01:30 AM [facility] TROPONIN I Specimen Type: PLASMA No comment entered. Ordering Provider: NAYLA DUNN Report Released Date/Time: Nov 14, 2023 01:10 AM Reporting Lab: [address] [address] Performing Lab: [address] [address] TROPONIN I 0.044 ng/mL H 0-0.033 Nov 13, 2023 10:00 PM [facility] MRSA SURVL NARES DNA [...] for final interpretation. Ordering Provider: NAYLA DUNN S Report Released Date/Time: Nov 13, 2023 09:10 PM Reporting Lab: [address] [address] Performing Lab: [address] [address] MRSA SURVL NARES DNA Negative Negative Nov 13, 2023 07:10 PM [facility] TROPONIN I Specimen Type: PLASMA No comment entered. Ordering Provider: CYRUS EVANS Report Released Date/Time: Nov 13, 2023 06:56 PM Reporting Lab: [facility] [address] [facility] [address] Performing Lab: [facility] [address] [facility] [address] TROPONIN I 0.045 ng/mL H 0-0.033 Nov 13, 2023 06:20 PM [facility] BLOOD GAS PANEL ABG ([facility]) Specimen Type: VENOUS BLOOD Comment: Test Performed by: [id number] Meter #: [id number] Ordering Provider: CYRUS EVANS Report Released Date/Time: Nov 13, 2023 06:20 PM Reporting Lab: [place] [address] [facility] [address] Performing Lab: [place] [address] [facility] [address] GEM PH 7.38 7.31-7.41 GEM PCO2 52 [...] TEMP 37.0 Nov 13, 2023 06:15 PM [facility] COVID-19 DIAGNOSTIC (FLU/RSV)([facility] [...] Nov 13, 2023 03:21 PM Reporting Lab: [place] [address] [facility] [address] Performing Lab: [address] [address] INFLUENZA A Negative Negative INFLUENZA B Negative Negative COVID-19 (STL-PB) Not Detected Not Detected RSV (Cepheid) NEGATIVE Negative Nov 13, 2023 06:00 PM [facility] APTT Specimen Type: PLASMA No comment entered. Ordering Provider: CYRUS EVANS Report Released Date/Time: Nov 13, 2023 03:21 PM Reporting Lab: [address] [address] Performing Lab: [address] [address] APTT 33.7 s 26.7-39.9 Nov 13, 2023 06:00 PM [facility] PT/INR NEW ([facility]) Specimen Type: PLASMA No comment entered. Ordering Provider: CYRUS EVANS Report Released Date/Time: Nov 13, 2023 03:21 PM Reporting Lab: [address] [address] Performing Lab: [address] [address] PROTIME 12.7 s H 9.4-12.5 INR VALUE 1.1 {INR} Nov 13, 2023 04:59 PM [facility] URINALYSIS W/ CX REFLEX (L-PB) Specimen Type: URINE No comment entered. Ordering Provider: CYRUS EVANS Report Released Date/Time: Nov 13, 2023 03:12 PM Reporting Lab: [address] [address] Performing Lab: [place] [address] [facility] [address] URINE COLOR Yellow Yellow U.BILIRUBIN Negative mg/dL [...] 1.005-1.02 9 Nov 13, 2023 02:20 PM [facility] TROPONIN I Specimen Type: PLASMA Comment: No hemolysis noted. Ordering Provider: CYRUS EVANS Report Released Date/Time: Nov 13, 2023 02:14 PM Reporting Lab: [address] [address] Performing Lab: [address] [address] TROPONIN I 0.044 ng/mL H 0-0.033 Nov 13, 2023 02:20 PM [facility] COMPREHENSIVE METABOLIC PANEL Specimen Type: PLASMA Comment: No hemolysis noted. Ordering Provider: CYRUS EVANS Report Released Date/Time: Nov 13, 2023 02:14 PM Reporting Lab: [address] [address] Performing Lab: [address] [address] CREATININE 1.17 mg/dL 0.7-1.3 UREA NITROGEN 12.7 [...] 60.3 >60 Nov 13, 2023 02:[address] [facility] CBC Specimen Type: BLOOD No comment entered. Ordering Provider: CYRUS EVANS Report Released Date/Time: Nov 13, 2023 02:14 PM Reporting Lab: [facility] [address] [facility] [address] Performing Lab: [facility] [address] [facility] [address] WBC 12.5 10*3/uL H 3.6-11.2 RBC 4.21 [...] Source Nov 14, 2023 09:[address] [facility] Nov 14, 2023 08:10 AM 98.4 70 119/[address] [facility] Nov 14, 2023 06:10 AM 97 66 121/[address] [facility] Nov 14, 2023 12:[address] [facility] Social History: Smoking Status (Most current) and Tobacco Use (All prior to encounter date) This section includes the most current, and the historical, smoking and tobacco- related health factors from the [place] facility where the Encounter took place. Current Smoking Status This section includes the most current smoking, or tobacco-related health factor, from the [place] facility where the Encounter took place. Date/Time Current Smoking Status Comment Dena sarkar Nov 14, 2023 01:18 AM ORYX ADMIT TOBACCO SCREEN NO [facility] Tobacco Use History This section includes a history of the smoking, or tobacco-related health factors, that were collected on or before the date of the Encounter. The data comes from the [place] facility where the Encounter took place. Date/Time Smoking Status/Tobacco Use Comment F acility Aug 04, 2022 11:30 AM VA-TOBACCO NEVER USED [facility] Mar 11, 2021 10:30 AM VA-TOBACCO FORMER USER [facility] Mar 11, 2021 10:30 AM VA-TOBACCO QUIT 15 YRS OR MORE [facility] Apr 19, 2018 09:07 AM VA-TOBACCO FORMER USER [facility] Apr 19, 2018 09:07 AM VA-TOBACCO QUIT 15 YRS OR MORE [facility] Jul 24, 2017 08:16 AM QUIT TOBACCO >7 YEARS AGO [facility] Apr 16, 2017 12:43 PM QUIT TOBACCO >7 YEARS AGO [facility] Feb 01, 2017 11:47 AM LIFETIME NON-USER OF TOBACCO [facility] Nov 15, 2016 09:00 AM QUIT TOBACCO >7 YEARS AGO [facility] September 11, 2016 06:27 PM QUIT TOBACCO >7 YEARS AGO [facility] Dec 09, 2015 10:17 AM QUIT TOBACCO >7 YEARS AGO [facility] Jan 05, 2015 08:22 AM CURRENT TOBACCO USER [facility] Jan 05, 2015 08:22 AM TOBACCO MEDS OFFER ED BUT DECLINED [facility] Mar 18, 2014 10:40 AM CURRENT TOBACCO USER [facility] Mar 18, 2014 10:40 AM TOBACCO MEDS OFFER ED BUT DECLINED [facility] Nov 04, 2013 09:40 AM CURRENT TOBACCO USER [facility] Nov 26, 2012 08:10 AM QUIT TOBACCO >7 YEARS AGO [facility] May 03, 2009 08:45 AM QUIT TOBACCO >7 YEARS AGO [facility] Jul 06, 2008 08:46 AM CURRENT TOBACCO USER [facility] Jul 25, 2007 12:30 PM QUIT TOBACCO >12 M O & <7 YRS AGO [facility] Jun 07, 2006 09:21 AM CURRENT TOBACCO USER [facility] Jun 07, 2006 09:21 [facility] Aug 25, 2005 11:01 AM CURRENT TOBACCO USER [facility] Aug 25, 2005 11:01 AM TOBACCO CONTEMPLATION STAGE [facility] Oct 25, 2004 10:18 AM CURRENT NON-TOBACC O USER-HX OF USE [facility] Oct 25, 2004 10:18 AM TOBACCO TERMINATION STAGE [facility] Aug 24, 2003 10:43 AM CURRENT NON-TOBACC O USER-HX OF USE [facility] Aug 24, 2003 10:43 AM TOBACCO TERMINATION STAGE [facility] Aug 05, 2002 09:55 AM CURRENT NON-TOBACC O USER-HX OF USE QUIT [facility] Apr 15, 2001 08:28 AM CURRENT NON-TOBACC O USER-HX OF USE quit [place] [address] [facility] Advance Directives: All historical and current Section Date Range: From patient's date of to the date document was created. This section includes ALL of a patient's completed or amended [place] Advance and Rescinded Directives. The entries below indicate that a directive exists for the patient, but an actual copy is not included with this document. The data comes from all [place] facilities. Date Advance Directives Provider Source Oct 19, 2023 ADVANCE DIRECTIVE LIDIAWANG FRANNIE [facility] Dec 12, 2022 RESCINDED ADVANCE DIRECTIVE JITENDRA MEADOWS [facility] September 12, 2016 ADVANCE DIRECTIVE DISCUSSION YVETTE MEADOWS [facility] Radiology Reports: +/- 30 [...] the Encounter. The data comes from all [place] treatment facilities. Date/Time Radiology Report Provider Source Nov 23, 2023 09:03 AM NM MYOCARDIAL P SPECT STRESS/REST-P: JESUS ABRAHAM [id number] -[id number] M Ex Date: NOV 23, 2023@09:03 Req Phys: MEAGHAN QUINTEROS Loc: -PC TM-C SAME DAY CLINIC (Re Img Loc: -NUCLEAR MEDICINE Service: Unknown [address] [address] (Case [id number] COMPLETE) NM MYOCARDIAL PERF SPECT STRESS/R(NM Detailed) CPT:97520 Reason for Study: CHEST PAIN, ASSESS SUSPECTED [...] 23, 2023 Date Verified: NOV 23, 2023 Locomotive Repairer Diesel E-Sig:/ES/AGUSTO LIPSCOMB Report: PATIENT NAME: JESUS ABARHAM CASE #: [id number], [id number] EXAMINATION: Rest/Lexiscan Stress Gated SPECT Myocardial Imaging [...] code: 1000. Dictated by Rik Brand MD (Wire Stripper), Rodney Smith MD (Wire Stripper) Agusto Elam, have reviewed the images and report and concur with these findings. Primary Interpreting Staff: AGUSTO LIPSCOMB, RADIOLOGIST (Locomotive Repairer Diesel) Primary Interpreting Resident: RIK BRAND MD, FOOT ORTHOPEDIST /AGUSTO [facility] Nov 13, 2023 04:[address] HEAD W/O CONT: JESUS ABRAHAM [id number] -[id number] M Exm Date: NOV 13, 2023@16:07 Req Phys: CYRUS EVANS Loc: [facility]-EMERGENCY DEPT 2ND SHIFT (R Img Loc: [facility]-CT IMAGING [facility] Service: Unknown [facility], [address] [place] [address] (Case [id number] COMPLETE) CT HEAD W/O CONT (CT Detailed) CPT:13822 Reason for Study: confusion Clinical History: Responsible Attending: cyrus evans Attending Contact Number: [phone] Resident Contact Number: Allergies listed in CPRS chart: Patient has answered NKA Creatinine: CREATININE 1.17 mg/dL 11/13/2023 14:20 /eGFR: STL EGFR (within one year). CREATININE 1.17 mg/dL (11/13/23 14:20) Wt: 189.3 lb [85.87 kg] (10/18/2023 10:32) History of: Renal failure, chronic or acute renal disease: NO Report Status: Verified Date Reported: NOV 13, 2023 Date Verified: NOV 13, 2023 Locomotive Repairer Diesel E-Sig: Report: CT HEAD W/O CONT HISTORY: confusion COMPARISON: CT head 06/11/2019 TECHNIQUE: Contiguous axial CT images from the level of the skull base through the skull apex, performed at the local [place] facility. 269 images were received by the [place] National Teleradiology Program (NTP) for interpretation. RADIATION [...] concern, consider MRI. READING PHYSICIAN: Anjum Guevara -[phone] 11/13/2023 15:14 PDT [facility] National Teleradiology Program [phone] (For Medical Practitioner Use Only) Attention Patients / Veterans: If you have questions or concerns about these test results, please contact your ordering provider or primary care team. Primary Interpreting Staff: RADIOLOGY,OUTSIDE SERVICE, Staff Physician / RADIOLOGY,OUTSIDE SERVICE [facility] Nov 13, 2023 03:59 PM CHEST X-RAY, 2 VIEWS: TOBIJESUS SKY [id number] -[id number] M Exm Date: NOV 13, 2023@15:59 Req Phys: CYRUS EVANS Loc: -EMERGENCY DEPT 2ND SHIFT (R Img Loc: -MAIN RADIOLOGY SUITE Service: [address] [address] (Case [id number] COMPLETE) CHEST X-RAY, 2 VIEWS (RAD Detailed) CPT:68154 Reason for Study: chest pain Clinical History: Report Status: Verified Date Reported: NOV 13, 2023 Date Verified: NOV 13, 2023 Locomotive Repairer Diesel E-Sig:/ES/AGUSTO LIPSCOMB Report: INDICATION: chest pain COMPARISON: None TECHNIQUE: Chest 2 views Impression: No large pleural effusion or sizable pneumothorax. No new focal consolidation. Unchanged cardiomediastinal silhouette. Primary Interpreting Staff: AGUSTO LIPSCOMB RADIOLOGIST (Locomotive Repairer Diesel) /AGUSTO [place] [facility] Pathology Reports: +/- 30 days [...] the Encounter. The data comes from all [place] treatment facilities. Date/Time Pathology Report Provider Source Nov 13, 2023 06:10 PM LR MICROBIOLOGY RE PORT: Accession [UID]: [id number] [[id number]] Received: Nov 13, 2023@18:22 Collection sample: Ivon [...] --=--=--=--=--=--=-- Performing Laboratory: Bacteriology Report Performed By: [facility] [address] [facility] CLIA# [id number] [address] [facility] [address] [place] [id number] [place] [address] Nov 13, 2023 06:05 PM LR MICROBIOLOGY RE PORT: Accession [UID]: [id number] [[id number]] Received: Nov 13, 2023@18:23 Collection sample: Ivon [...] --=--=--=--=--=--=-- Performing Laboratory: Bacteriology Report Performed By: [facility] [address] [facility] CLIA# [id number] [address] [facility] [address] [place] [address] [facility] Encounter Notes: All associated encounter notes This section contains the clinical notes associated to the Encounter. Date/Time Encounter Note(s) Provider Source Nov 14, 2023 10:44 AM CARDIOLOGY DIAGNOS TIC STUDY NOTE: LOCAL TITLE: CP ECHO TTE STL STANDARD TITLE: CARDIOLOGY DIAGNOSTIC STUDY NOTE DATE OF NOTE: NOV 14, 2023@10:44:53 ENTRY DATE: NOV 14, 2023@10:44:53 AUTHOR: CLINICAL,DEVICE PRO EXP COSIGNER: URGENCY: STATUS: COMPLETED CP ECHO TTE STL Has ADDENDA DOCUMENT IN [facility] SEE FULL REPORT IN [facility] SIGNATURE NOT REQUIRED SEE SIGNATURE IN [facility] (IMAGEVAULT TTE (P)) AUTO-INSTRUMENT DIAGNOSIS Procedure: TTE CP TTE ECHOCARDIOGRAM [facility] Release Status: Released Off-Line Verified Date Verified: Nov 14, 2023@10:43:05 Administrative Closure: 11/14/2023 by: CLINICAL,DEVICE PROXY SERVICE 11/23/2023 ADDENDUM STATUS: COMPLETED 1. Global systolic function: Overall left ventricular [...] 03/17/2022, there has been no significant change. /manuel/ MEAGHAN QUINTEROS MD STAFF PHYSICIAN Signed: 11/23/2023 11:27 CLINICAL,DEVICE PROXY SERVICE [facility]
--- OUTSIDE RECORDS SUMMARY | 2024-05-17 21:52 | XMS_ITS ---
[place] DAILY HOSPITALIZATION DATA [facility] Encounter Summary Created on: May 17, 2024 JESUS ABRAHAM : 1935 Sex: Male Author Name [facility] [place] [facility] [place] [facility] [place] Address [address] [place] [address] Care Team Providers Care Fur Coat Sewer Name Role Phone MEAGHAN QUINTEROS Primary Care [...] PART A Aug 12, 2001 PART A [id number] [phone] JESUS ABRAHAM PATIENT MEDICARE (WNR) MEDICARE (M) PART B Aug 12, 2001 PART B [id number] TOBIDANAYJESUS BUTT PATIENT Selected Encounter This section includes the information on record at [place] for the Encounter. Date/Time Encounter Type Encounter Description Reason Pro vider Source Nov 14, 2023 01:31 AM Inpatient Visit DAILY HOSPITALIZATION DATA MARTHA PHAM [facility] Encounter Template Text not used by [place] [...] 20 appointments. The data comes from all [facility]. Appointment Date/Time Appointment Type Appointme nt Facility Name Nov 23, 2023 09:00 AM AMBULATORY - MEDICINE [facility] Nov 23, 2023 10:00 AM AMBULATORY - MEDICINE [facility] Nov 23, 2023 11:30 AM AMBULATORY - MEDICINE [facility] Dec 24, 2023 02:45 PM AMBULATORY - SURGERY [facility] Jan 01, 2024 02:00 PM AMBULATORY - REHAB MEDICIN E [facility] Feb 29, 2024 01:30 PM AMBULATORY - MEDICINE [facility] Mar 03, 2024 09:15 AM AMBULATORY - MEDICINE [facility] Mar 08, 2024 01:30 PM AMBULATORY - MEDICINE [facility] Mar 10, 2024 12:45 PM AMBULATORY - SURGERY [facility] Apr 16, 2024 11:00 AM AMBULATORY - REHAB MEDICIN E [facility] May 15, 2024 11:00 AM AMBULATORY - SURGERY [facility] Active, Pending, and Scheduled Orders This section includes a listing of several types of active, pending, and scheduled orders, including clinic medications orders, diagnostic test orders, procedure orders and consult orders; where the start date of the order is 45 days before the date of the Encounter or 45 days after the date of theEncounter. The data comes from all [facility]. Test Date/Time Test Type Test Details Facility Name Nov 13, 2023 09:10 PM Laboratory - Chemi stry Order MRSA SURVL NARES DNA NARES WC [facility] Nov 21, 2023 12:00 AM Laboratory - Chemi stry Order VITAMIN D, 25-HYDROXY GOLD/RED SST SERUM SP [facility] Nov 21, 2023 12:00 AM Laboratory - Chemi stry Order HGA1C BLOOD [facility] Lab Results: +/- 30 days [...] Range Comment Nov 14, 2023 05:33 AM [facility] TSH W/ REFLEX FT4 (STL) Specimen Type: PLASMA No comment entered. Ordering Provider: NAYLA DUNN Report Released Date/Time: Nov 14, 2023 04:23 AM Reporting Lab: [facility] [address] [address] Performing Lab: [facility] [address] [facility] [address] TSH 3.546 u[IU]/mL 0.47-5 Nov 14, 2023 05:33 AM [facility] PHOSPHOROUS Specimen Type: PLASMA Comment: No hemolysis noted. Ordering Provider: NAYLA DUNN Report Released Date/Time: Nov 14, 2023 04:23 AM Reporting Lab: [facility] [address] [address] Performing Lab: [facility] [address] [address] PHOSPHOROUS 2.9 mg/dL 2.3-4.7 Nov 14, 2023 05:33 AM [facility] MAGNESIUM Specimen Type: PLASMA Comment: No hemolysis noted. Ordering Provider: NAYLA DUNN Report Released Date/Time: Nov 14, 2023 04:23 AM Reporting Lab: [facility] [address] [address] Performing Lab: [facility] [address] [facility] [address] MAGNESIUM 2.1 mg/dL 1.6-2.6 Nov 14, 2023 05:33 AM [facility] BASIC METABOLIC PANEL Specimen Type: PLASMA Comment: No hemolysis noted. Ordering Provider: NAYLA DUNN Report Released Date/Time: Nov 14, 2023 04:23 AM Reporting Lab: [facility] [place] [address] [address] Performing Lab: [address] [address] CREATININE 0.78 mg/dL 0.7-1.3 UREA NITROGEN 12.0 mg/dL 9.0-25.0 GLUCOSE 83 mg/dL 72-99 SODIUM 136 meq/L 136-145 POTASSIUM 4.4 meq/L 3.5-5 CHLORIDE 103 meq/L 98-107 CARBON DIOXIDE 26 meq/L 22-31 CALCIUM 8.8 mg/dL 8.4-10.4 EGFR (CKD-EPI 2020) 86.3 >60 Nov 14, 2023 05:33 AM [facility] CBC Specimen Type: BLOOD Comment: Manual diff performed on 11/13/23 Ordering Provider: NAYLA DUNN Report Released Date/Time: Nov 14, 2023 04:23 AM Reporting Lab: [address] [address] Performing Lab: [address] [address] WBC 12.8 10*3/uL H 3.6-11.2 RBC 3.87 [...] 10*3/uL 0.00-0.20 Nov 14, 2023 01:30 AM [facility] TROPONIN I Specimen Type: PLASMA No comment entered. Ordering Provider: NAYLA UDNN Report Released Date/Time: Nov 14, 2023 01:10 AM Reporting Lab: [facility] [address] [facility] [address] Performing Lab: [facility] [address] [place] [address] TROPONIN I 0.044 ng/mL H 0-0.033 Nov 13, 2023 10:00 PM [facility] MRSA SURVL NARES DNA Specimen Type: [...] Nov 13, 2023 09:10 PM Reporting Lab: [facility] [address] [place] [phone] Performing Lab: [address] [address] MRSA SURVL NARES DNA Negative Negative Nov 13, 2023 07:10 PM [facility] TROPONIN I Specimen Type: PLASMA No comment entered. Ordering Provider: CYRUS EVANS Report Released Date/Time: Nov 13, 2023 06:56 PM Reporting Lab: [facility] [address] [place] [address] Performing Lab: [address] [address] TROPONIN I 0.045 ng/mL H 0-0.033 Nov 13, 2023 06:20 PM [facility] BLOOD GAS PANEL ABG (STL) Specimen Type: VENOUS BLOOD Comment: Test Performed by: [id number] Meter #: [id number] Ordering Provider: CYRUS EVANS Report Released Date/Time: Nov 13, 2023 06:20 PM Reporting Lab: [facility] [address] [place] [address] Performing Lab: [address] [address] GEM PH 7.38 7.31-7.41 GEM PCO2 52 [...] TEMP 37.0 Nov 13, 2023 06:15 PM [facility] COVID-19 DIAGNOSTIC (FLU/RSV)([facility] [...] Nov 13, 2023 03:21 PM Reporting Lab: [address] [address] Performing Lab: [facility] [address] [address] INFLUENZA A Negative Negative INFLUENZA B Negative Negative COVID-19 (L-PB) Not Detected Not Detected RSV (Cepheid) NEGATIVE Negative Nov 13, 2023 06:00 PM [facility] PT/INR NEW (L-MA) Specimen Type: PLASMA No comment entered. Ordering Provider: CYRUS EVANS Report Released Date/Time: Nov 13, 2023 03:21 PM Reporting Lab: [facility] [address] [address] Performing Lab: [facility] [address] [place] [phone] PROTIME 12.7 s H 9.4-12.5 INR VALUE 1.1 {INR} Nov 13, 2023 06:00 PM [facility] APTT Specimen Type: PLASMA No comment entered. Ordering Provider: CYRUS EVANS Report Released Date/Time: Nov 13, 2023 03:21 PM Reporting Lab: [facility] [address] [address] Performing Lab: [facility] [address] [place] [address] APTT 33.7 s 26.7-39.9 Nov 13, 2023 04:59 PM [facility] URINALYSIS W/ CX REFLEX (L-PB) Specimen Type: URINE No comment entered. Ordering Provider: CYRUS EVANS Report Released Date/Time: Nov 13, 2023 03:12 PM Reporting Lab: [facility] [address] [facility] [address] Performing Lab: [facility] [address] [place] [phone] URINE COLOR Yellow Yellow U.BILIRUBIN Negative mg/dL [...] 1.005-1.02 9 Nov 13, 2023 02:20 PM [facility] TROPONIN I Specimen Type: PLASMA Comment: No hemolysis noted. Ordering Provider: CYRUS EVANS Report Released Date/Time: Nov 13, 2023 02:14 PM Reporting Lab: [address] [address] Performing Lab: [address] [address] TROPONIN I 0.044 ng/mL H 0-0.033 Nov 13, 2023 02:20 PM [facility] COMPREHENSIVE METABOLIC PANEL Specimen Type: PLASMA Comment: No hemolysis noted. Ordering Provider: CYRUS EVANS Report Released Date/Time: Nov 13, 2023 02:14 PM Reporting Lab: [address] [address] Performing Lab: [address] [address] CREATININE 1.17 mg/dL 0.7-1.3 UREA NITROGEN 12.7 [...] 60.3 >60 Nov 13, 2023 02:20 PM [facility] CBC Specimen Type: BLOOD No comment entered. Ordering Provider: CYRUS EVANS Report Released Date/Time: Nov 13, 2023 02:14 PM Reporting Lab: [facility] [address] [address] Performing Lab: [facility] [address] [facility] [address] WBC 12.5 10*3/uL H 3.6-11.2 RBC 4.21 [...] Source Nov 14, 2023 09:15 AM 0 [facility] Nov 14, 2023 08:10 AM 98.4 70 119/62 18 95 [facility] Nov 14, 2023 06:10 AM 97 66 121/70 18 96 0 [facility] Nov 14, 2023 12:51 AM 0 [facility] Social History: Smoking [...] 01:18 AM ORYX ADMIT TOBACCO SCREEN NO [facility] Tobacco Use History This section includes a history of the smoking, or tobacco-related health factors, that were collected on or before the date of the Encounter. The data comes from the [place] facility where the Encounter took place. Date/Time Smoking Status/Tobacco Use Comment F acility Aug 04, 2022 11:30 AM VA-TOBACCO NEVER USED [facility] Mar 11, 2021 10:30 AM VA-TOBACCO FORMER USER [facility] Mar 11, 2021 10:30 AM VA-TOBACCO QUIT 15 YRS OR MORE [facility] Apr 19, 2018 09:07 AM VA-TOBACCO FORMER USER [facility] Apr 19, 2018 09:07 AM VA-TOBACCO QUIT 15 YRS OR MORE [facility] Jul 24, 2017 08:16 AM QUIT TOBACCO >7 YEARS AGO [facility] Apr 16, 2017 12:43 PM QUIT TOBACCO >7 YEARS AGO [facility] Feb 01, 2017 11:47 AM LIFETIME NON-USER OF TOBACCO [facility] Nov 15, 2016 09:00 AM QUIT TOBACCO >7 YEARS AGO [facility] September 11, 2016 06:27 PM QUIT TOBACCO >7 YEARS AGO [facility] Dec 09, 2015 10:17 AM QUIT TOBACCO >7 YEARS AGO [facility] Jan 05, 2015 08:22 AM CURRENT TOBACCO USER [facility] Jan 05, 2015 08:22 AM TOBACCO MEDS OFFER ED BUT DECLINED [facility] Mar 18, 2014 10:40 AM CURRENT TOBACCO USER [facility] Mar 18, 2014 10:40 AM TOBACCO MEDS OFFER ED BUT DECLINED [facility] Nov 04, 2013 09:40 AM CURRENT TOBACCO USER [facility] Nov 26, 2012 08:10 AM QUIT TOBACCO >7 YEARS AGO [facility] May 03, 2009 08:45 AM QUIT TOBACCO >7 YEARS AGO [facility] Jul 06, 2008 08:46 AM CURRENT TOBACCO USER [facility] Jul 25, 2007 12:30 PM QUIT TOBACCO >12 M O & <7 YRS AGO [facility] Jun 07, 2006 09:21 AM CURRENT TOBACCO USER [facility] Jun 07, 2006 09:21 [facility] Aug 25, 2005 11:01 AM CURRENT TOBACCO USER [facility] Aug 25, 2005 11:01 AM TOBACCO CONTEMPLATION STAGE [facility] Oct 25, 2004 10:18 AM CURRENT NON-TOBACC O USER-HX OF USE [facility] Oct 25, 2004 10:18 AM TOBACCO TERMINATION STAGE [facility] Aug 24, 2003 10:43 AM CURRENT NON-TOBACC O USER-HX OF USE [facility] Aug 24, 2003 10:43 AM TOBACCO TERMINATION STAGE [facility] Aug 05, 2002 09:55 AM CURRENT NON-TOBACC O USER-HX OF USE QUIT [facility] Apr 15, 2001 08:28 AM CURRENT NON-TOBACC O USER-HX OF USE quit in 1979 [facility] Advance Directives: All historical and current [...] 19, 2023 ADVANCE DIRECTIVE WANG MURILLO [facility] Dec 12, 2022 RESCINDED ADVANCE DIRECTIVE JITENDRA MEADOWS [facility] September 12, 2016 ADVANCE DIRECTIVE DISCUSSION YVETTE MEADOWS [facility] Radiology Reports: +/- 30 days of [...] NM MYOCARDIAL P SPECT STRESS/REST-P: JESUS ABRAHAM [id number] -1935 M Exm Date: NOV 23, 2023@09:03 Req Phys: MEAGHAN QUINTEROS Loc: -PC TM-C SAME DAY CLINIC (Re Img Loc: -NUCLEAR MEDICINE Service: [facility], [place], operated [facility] [address] [place] [address] (Case [id number] COMPLETE) NM MYOCARDIAL PERF SPECT STRESS/R(NM Detailed) CPT:91732 Reason for Study: CHEST PAIN, ASSESS SUSPECTED [...] 23, 2023 Date Verified: NOV 23, 2023 Pipe Layer Helper E-Sig:/ES/AGUSTO LIPSCOMB Report: PATIENT NAME: JESUS ABRAHAM CASE #: [id number], [id number], [id number], [id number], [id number] EXAMINATION: Rest/Lexiscan Stress Gated SPECT Myocardial Imaging [...] code: 1000. Dictated by Rik Dorantes MD (Aviation Safety Technician), Rodney Smith MD (Aviation Safety Technician) IAgusto, have reviewed the images and report and concur with these findings. Primary Interpreting Staff: AGUSTO LIPSCOMB, RADIOLOGIST (Pipe Layer Helper) Primary Interpreting Resident: RIK DORANTES MD, FELT FINISHING SUPERVISOR /AGUSTO SEN [facility] Nov 13, 2023 04:[address] HEAD W/O CONT: JESUS ABRAHAM [id number] -1935 M Exm Date: NOV 13, 2023@16:07 Req Phys: CYRUS EVANS Loc: [facility]-EMERGENCY DEPT 2ND SHIFT (R Img Loc: [facility]-CT IMAGING [facility] Service: Unknown [facility], [facility] [address] [place] [address] (Case [id number] COMPLETE) CT HEAD W/O CONT (CT Detailed) CPT:35926 Reason for Study: confusion Clinical History: Responsible Attending: cyrus evans Attending Contact Number: [phone] Resident Contact Number: Allergies listed in CPRS chart: Patient has answered NKA Creatinine: CREATININE 1.17 mg/dL 11/13/2023 14:20 /eGFR: STL EGFR (within one year). CREATININE 1.17 mg/dL (11/13/23 14:20) Wt: 189.3 lb [85.87 kg] (10/18/2023 10:32) History of: Renal failure, chronic or acute renal disease: NO Report Status: Verified Date Reported: NOV 13, 2023 Date Verified: NOV 13, 2023 Pipe Layer Helper E-Sig: Report: CT HEAD W/O CONT HISTORY: [...] clinical concern, consider MRI. READING PHYSICIAN: Anjum [id number] 11/13/2023 15:14 PDT [facility] [phone] (For Medical Practitioner Use Only) Attention Patients / Veterans: If you have questions or concerns about these test results, please contact your ordering provider or primary care team. Primary Interpreting Staff: RADIOLOGY,OUTSIDE SERVICE, Staff Physician / RADIOLOGY,OUTSIDE SERVICE [facility] Nov 13, 2023 03:59 PM CHEST X-RAY, 2 VIEWS: JESUS ABRAHAM [id number] -1935 M Exm Date: NOV 13, 2023@15:59 Req Phys: CYRUS EVANS Pat Loc: -EMERGENCY DEPT 2ND SHIFT (R Img Loc: -MAIN RADIOLOGY SUITE Service: [facility], [facility] [address] [place] [address] (Case [id number] COMPLETE) CHEST X-RAY, 2 VIEWS (RAD Detailed) CPT:48029 Reason for Study: chest pain Clinical History: Report Status: Verified Date Reported: NOV 13, 2023 Date Verified: NOV 13, 2023 Pipe Layer Helper E-Sig:/ES/AGUSTO LIPSCOMB Report: INDICATION: chest pain COMPARISON: None TECHNIQUE: Chest 2 views Impression: No large pleural effusion or sizable pneumothorax. No new focal consolidation. Unchanged cardiomediastinal silhouette. Primary Interpreting Staff: AGUSTO LIPSCOMB, RADIOLOGIST (Pipe Layer Helper) /AGUSTO [place] [facility] Pathology Reports: +/- 30 [...] RE PORT: Accession [UID]: [id number] [[id number]] Received: Nov 13, 2023@18:22 Collection sample: B [...] --=--=--=--=--=--=-- Performing Laboratory: Bacteriology Report [facility] By: [facility] [address] [place] [address]# [id number] [address] [facility] [address] [place] [address] [facility] Nov 13, 2023 06:05 PM LR MICROBIOLOGY RE PORT: Accession [UID]: [id number] [[id number]] Received: Nov 13, 2023@18:23 Collection sample: B [...] Bacteriology Report Performed By: HANNY BAEZ [address] [facility] CLIA# [id number] [address] [facility] [address] [place] [address] [facility]
--- OUTSIDE RECORDS SUMMARY | 2024-05-17 21:52 | XMS_ITS ---
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 Date/Time Encounter Type Encounter Description Reason Pro vider Source Nov 14, 2023 01:18 AM Inpatient Visit DAILY HOSPITALIZATION DATA ABDOUL BURGOS Encounter Template Text not used by [place] Plan of Treatment: Future Appointments (+ 6 [...] 20 appointments. The data comes from all [facility]. Appointment Date/Time Appointment Type Appointme nt Facility Name Nov 23, 2023 09:00 AM AMBULATORY - MEDICINE [facility] Nov 23, 2023 10:00 AM AMBULATORY - MEDICINE [facility] Nov 23, 2023 11:30 AM AMBULATORY - MEDICINE [facility] Dec 24, 2023 02:45 PM AMBULATORY - SURGERY [facility] Jan 01, 2024 02:00 PM AMBULATORY - REHAB MEDICIN E [facility] Feb 29, 2024 01:30 PM AMBULATORY - MEDICINE [facility] Mar 03, 2024 09:15 AM AMBULATORY - MEDICINE [facility] Mar 08, 2024 01:30 PM AMBULATORY - MEDICINE [facility] Mar 10, 2024 12:45 PM AMBULATORY - SURGERY [facility] Apr 16, 2024 11:00 AM AMBULATORY - REHAB MEDICIN E [facility] May 15, 2024 11:00 AM AMBULATORY - SURGERY [facility] Active, Pending, and Scheduled Orders This section includes a listing of several types of active, pending, and scheduled orders, including clinic medications orders, diagnostic test orders, procedure orders and consult orders; where the start date of the order is 45 days before the date of the Encounter or 45 days after the date of theEncounter. The data comes from all [facility]. Test Date/Time Test Type Test Details Facility Name Nov 13, 2023 09:10 PM Laboratory - Chemi stry Order MRSA SURVL NARES DNA NARES WC [facility] Nov 21, 2023 12:00 AM Laboratory - Chemi stry Order HGA1C BLOOD SP [facility] Nov 21, 2023 12:00 AM Laboratory - Chemi stry Order VITAMIN D, 25-HYDROXY GOLD/RED SST SERUM SP [facility] Lab Results: +/- 30 days of [...] Range Comment Nov 14, 2023 05:33 AM [facility] TSH W/ REFLEX FT4 (STL) Specimen Type: PLASMA No comment entered. Ordering Provider: NAYLA DUNN Report Released Date/Time: Nov 14, 2023 04:23 AM Reporting Lab: [facility] [address] [facility] [address] Performing Lab: [facility] [address] [facility] [address] TSH 3.546 u[IU]/mL 0.47-5 Nov 14, 2023 05:33 AM [facility] MAGNESIUM Specimen Type: PLASMA Comment: No hemolysis noted. Ordering Provider: NAYLA DUNN Report Released Date/Time: Nov 14, 2023 04:23 AM Reporting Lab: [facility] [address] [facility] [address] Performing Lab: [facility] [address] [facility] [address] MAGNESIUM 2.1 mg/dL 1.6-2.6 Nov 14, 2023 05:33 AM [facility] PHOSPHOROUS Specimen Type: PLASMA Comment: No hemolysis noted. Ordering Provider: NAYLA DUNN Report Released Date/Time: Nov 14, 2023 04:23 AM Reporting Lab: [facility] [address] [facility] [address] Performing Lab: [facility] [address] [facility] [address] PHOSPHOROUS 2.9 mg/dL 2.3-4.7 Nov 14, 2023 05:33 AM [facility] BASIC METABOLIC PANEL Specimen Type: PLASMA Comment: No hemolysis noted. Ordering Provider: NAYLA DUNN Report Released Date/Time: Nov 14, 2023 04:23 AM Reporting Lab: [facility] [address] Performing Lab: [address] [address] CREATININE 0.78 mg/dL 0.7-1.3 UREA NITROGEN 12.0 mg/dL 9.0-25.0 GLUCOSE 83 mg/dL 72-99 SODIUM 136 meq/L 136-145 POTASSIUM 4.4 meq/L 3.5-5 CHLORIDE 103 meq/L 98-107 CARBON DIOXIDE 26 meq/L 22-31 CALCIUM 8.8 mg/dL 8.4-10.4 EGFR (CKD-EPI 2020) 86.3 >60 Nov 14, 2023 05:33 AM [facility] CBC Specimen Type: BLOOD Comment: Manual diff performed on 11/13/23 Ordering Provider: NAYAL DUNN Report Released Date/Time: Nov 14, 2023 04:23 AM Reporting Lab: [address] [address] Performing Lab: [address] [address] WBC 12.8 10*3/uL H 3.6-11.2 RBC 3.87 [...] 10*3/uL 0.00-0.20 Nov 14, 2023 01:30 AM [facility] TROPONIN I Specimen Type: PLASMA No comment entered. Ordering Provider: NAYLA DUNN Report Released Date/Time: Nov 14, 2023 01:10 AM Reporting Lab: [facility] [address] [facility] [address] Performing Lab: [facility] [address] [place] [address] TROPONIN I 0.044 ng/mL H 0-0.033 Nov 13, 2023 10:00 PM [facility] MRSA SURVL NARES DNA Specimen Type: [...] Nov 13, 2023 09:10 PM Reporting Lab: [facility] [address] [facility] [address] Performing Lab: [address] [address] MRSA SURVL NARES DNA Negative Negative Nov 13, 2023 07:10 PM [facility] TROPONIN I Specimen Type: PLASMA No comment entered. Ordering Provider: CYRUS EVANS Report Released Date/Time: Nov 13, 2023 06:56 PM Reporting Lab: [facility] [address] [place] [address] Performing Lab: [address] [address] TROPONIN I 0.045 ng/mL H 0-0.033 Nov 13, 2023 06:20 PM [facility] BLOOD GAS PANEL ABG (STL) Specimen Type: VENOUS BLOOD Comment: Test Performed by: [id number] Meter #: [id number] Ordering Provider: CYRUS EVANS Report Released Date/Time: Nov 13, 2023 06:20 PM Reporting Lab: [facility] [address] [place] [address] Performing Lab: [address] [address] GEM PH 7.38 7.31-7.41 GEM PCO2 52 [...] TEMP 37.0 Nov 13, 2023 06:15 PM [facility] COVID-19 DIAGNOSTIC (FLU/RSV)([facility]) Specimen Type: NASOPHARYNX Comment: Qualitative real-time [...] Nov 13, 2023 03:21 PM Reporting Lab: [address] [address] Performing Lab: [facility] [address] [facility] [address] INFLUENZA A Negative Negative INFLUENZA B Negative Negative COVID-19 (L-PB) Not Detected Not Detected RSV (Cepheid) NEGATIVE Negative Nov 13, 2023 06:00 PM [facility] PT/INR NEW (L-MA) Specimen Type: PLASMA No comment entered. Ordering Provider: CYRUS EVANS Report Released Date/Time: Nov 13, 2023 03:21 PM Reporting Lab: [facility] [address] [facility] [address] Performing Lab: [facility] [address] [place] [phone] PROTIME 12.7 s H 9.4-12.5 INR VALUE 1.1 {INR} Nov 13, 2023 06:00 PM [facility] APTT Specimen Type: PLASMA No comment entered. Ordering Provider: CYRUS EVANS Report Released Date/Time: Nov 13, 2023 03:21 PM Reporting Lab: [facility] [address] [facility] [address] Performing Lab: [facility] [address] [place] [address] APTT 33.7 s 26.7-39.9 Nov 13, 2023 04:59 PM [facility] URINALYSIS W/ CX REFLEX (L-PB) Specimen Type: URINE No comment entered. Ordering Provider: CYRUS EVANS Report Released Date/Time: Nov 13, 2023 03:12 PM Reporting Lab: [facility] [address] [facility] [address] Performing Lab: [facility] [address] [place] [phone] URINE COLOR Yellow Yellow U.BILIRUBIN Negative mg/dL [...] 1.005-1.02 9 Nov 13, 2023 02:20 PM [facility] TROPONIN I Specimen Type: PLASMA Comment: No hemolysis noted. Ordering Provider: CYRUS EVANS Report Released Date/Time: Nov 13, 2023 02:14 PM Reporting Lab: [address] [address] Performing Lab: [address] [address] TROPONIN I 0.044 ng/mL H 0-0.033 Nov 13, 2023 02:20 PM [facility] COMPREHENSIVE METABOLIC PANEL Specimen Type: PLASMA Comment: No hemolysis noted. Ordering Provider: CYRUS EVANS Report Released Date/Time: Nov 13, 2023 02:14 PM Reporting Lab: [address] [address] Performing Lab: [address] [address] CREATININE 1.17 mg/dL 0.7-1.3 UREA NITROGEN 12.7 [...] 60.3 >60 Nov 13, 2023 02:20 PM [facility] CBC Specimen Type: BLOOD No comment entered. Ordering Provider: CYRUS EVANS Report Released Date/Time: Nov 13, 2023 02:14 PM Reporting Lab: [facility] [address] [facility] [address] Performing Lab: [facility] [address] [facility] [address] WBC 12.5 10*3/uL H 3.6-11.2 RBC 4.21 [...] Source Nov 14, 2023 09:15 AM 0 [facility] Nov 14, 2023 08:10 AM 98.4 70 119/62 18 95 [facility] Nov 14, 2023 06:10 AM 97 66 121/70 18 96 0 [facility] Nov 14, 2023 12:51 AM 0 [facility] Social History: Smoking Status (Most current) and Tobacco Use (All prior to encounter date) This section includes the most current, and the historical, smoking and tobacco- related health factors from the [place] facility where the Encounter took place. Current Smoking Status This section includes the most current smoking, or tobacco-related health factor, from the [place] facility where the Encounter took place. Date/Time Current Smoking Status Comment Dena ity Nov 14, 2023 01:18 AM ORYX ADMIT TOBACCO SCREEN NO [facility] Tobacco Use History This section includes a history of the smoking, or tobacco-related health factors, that were collected on or before the date of the Encounter. The data comes from the [place] facility where the Encounter took place. Date/Time Smoking Status/Tobacco Use Comment F acility Aug 04, 2022 11:30 AM VA-TOBACCO NEVER USED [facility] Mar 11, 2021 10:30 AM VA-TOBACCO FORMER USER [facility] Mar 11, 2021 10:30 AM VA-TOBACCO QUIT 15 YRS OR MORE [facility] Apr 19, 2018 09:07 AM VA-TOBACCO FORMER USER [facility] Apr 19, 2018 09:07 AM VA-TOBACCO QUIT 15 YRS OR MORE [facility] Jul 24, 2017 08:16 AM QUIT TOBACCO >7 YEARS AGO [facility] Apr 16, 2017 12:43 PM QUIT TOBACCO >7 YEARS AGO [facility] Feb 01, 2017 11:47 AM LIFETIME NON-USER OF TOBACCO [facility] Nov 15, 2016 09:00 AM QUIT TOBACCO >7 YEARS AGO [facility] September 11, 2016 06:27 PM QUIT TOBACCO >7 YEARS AGO [facility] Dec 09, 2015 10:17 AM QUIT TOBACCO >7 YEARS AGO [facility] Jan 05, 2015 08:22 AM CURRENT TOBACCO USER [facility] Jan 05, 2015 08:22 AM TOBACCO MEDS OFFER ED BUT DECLINED [facility] Mar 18, 2014 10:40 AM CURRENT TOBACCO USER [facility] Mar 18, 2014 10:40 AM TOBACCO MEDS OFFER ED BUT DECLINED [facility] Nov 04, 2013 09:40 AM CURRENT TOBACCO USER [facility] Nov 26, 2012 08:10 AM QUIT TOBACCO >7 YEARS AGO [facility] May 03, 2009 08:45 AM QUIT TOBACCO >7 YEARS AGO [facility] Jul 06, 2008 08:46 AM CURRENT TOBACCO USER [facility] Jul 25, 2007 12:30 PM QUIT TOBACCO >12 M O & <7 YRS AGO [facility] Jun 07, 2006 09:21 AM CURRENT TOBACCO USER [facility] Jun 07, 2006 09:21 [facility] Aug 25, 2005 11:01 AM CURRENT TOBACCO USER [facility] Aug 25, 2005 11:01 AM TOBACCO CONTEMPLATION STAGE [facility] Oct 25, 2004 10:18 AM CURRENT NON-TOBACC O USER-HX OF USE [facility] Oct 25, 2004 10:18 AM TOBACCO TERMINATION STAGE [facility] Aug 24, 2003 10:43 AM CURRENT NON-TOBACC O USER-HX OF USE [facility] Aug 24, 2003 10:43 AM TOBACCO TERMINATION STAGE [facility] Aug 05, 2002 09:55 AM CURRENT NON-TOBACC O USER-HX OF USE QUIT [facility] Apr 15, 2001 08:28 AM CURRENT NON-TOBACC O USER-HX OF USE quit in 1979 [facility] Advance Directives: All historical and current Section Date Range: From patient's date of to the date document was created. This section includes ALL of a patient's completed or amended [place] Advance and Rescinded Directives. The entries below indicate that a directive exists for the patient, but an actual copy is not included with this document. The data comes from all [place] facilities. Date Advance Directives Provider Source Oct 19, 2023 ADVANCE DIRECTIVE WANG MURILLO [facility] Dec 12, 2022 RESCINDED ADVANCE DIRECTIVE JITENDRA MEADOWS [facility] September 12, 2016 ADVANCE DIRECTIVE DISCUSSION YVETTE [facility]OWS [facility] Radiology Reports: +/- 30 days of [...] the Encounter. The data comes from all [place] treatment facilities. Date/Time Radiology Report Provider Source Nov 23, 2023 09:03 AM NM MYOCARDIAL P SPECT STRESS/REST-P: JESUS ABRAHAM [id number] -1935 M Exm Date: NOV 23, 2023@09:03 Req Phys: MEAGHAN QUINTEROS Loc: -PC TM-C SAME DAY CLINIC (Re Img Loc: -NUCLEAR MEDICINE Service: Unknown [facility] [address] [place] [address] (Case [id number] COMPLETE) NM MYOCARDIAL PERF SPECT STRESS/R(NM Detailed) CPT:63539 Reason for Study: CHEST PAIN, ASSESS SUSPECTED [...] 23, 2023 Date Verified: NOV 23, 2023 Production Sanitizer E-Sig:/ES/AGUSTO LIPSCOMB Report: PATIENT NAME: JESUS ABRAHAM CASE #: [id number], [id number], [id number], [id number], [id number] EXAMINATION: Rest/Lexiscan Stress Gated SPECT Myocardial Imaging [...] code: 1000. Dictated by Rik Brand MD (Manufacturing Support Engineer), Rodney Smith MD (Manufacturing Support Engineer) IAgusto, have reviewed the images and report and concur with these findings. Primary Interpreting Staff: AGUSTO LIPSCOMB, RADIOLOGIST (Production Sanitizer) Primary Interpreting Resident: RIK BRAND MD, BOOSTER PUMP OPERATOR /AGUSTO SEN [facility] Nov 13, 2023 04:[address] HEAD W/O CONT: JESUS ABRAHAM [id number] -1935 M Exm Date: NOV 13, 2023@16:07 Req Phys: CYRUS EVANS Loc: [facility]-EMERGENCY DEPT 2ND SHIFT (R Img Loc: [facility]-CT IMAGING [facility] Service: Unknown [facility] [address] [place] [address] (Case [id number] COMPLETE) CT HEAD W/O CONT (CT Detailed) CPT:65544 Reason for Study: confusion Clinical History: Responsible Attending: cyrus evans Attending Contact Number: [phone] Resident Contact Number: Allergies listed in CPRS chart: Patient has answered NKA Creatinine: CREATININE 1.17 mg/dL 11/13/2023 14:20 /eGFR: STL EGFR (within one year). CREATININE 1.17 mg/dL (11/13/23 14:20) Wt: 189.3 lb [85.87 kg] (10/18/2023 10:32) History of: Renal failure, chronic or acute renal disease: NO Report Status: Verified Date Reported: NOV 13, 2023 Date Verified: NOV 13, 2023 Production Sanitizer E-Sig: Report: CT HEAD W/O CONT HISTORY: confusion COMPARISON: CT head 06/11/2019 TECHNIQUE: Contiguous axial CT images from the level of the skull base through the skull apex, performed at the local [place] facility. 269 images were received by the [place] National Teleradiology Program (NTP) for interpretation. RADIATION [...] clinical concern, consider MRI. READING PHYSICIAN: Anjum [id number] 11/13/2023 15:14 PDT [facility] National Teleradiology Program [phone] (For Medical Practitioner Use Only) Attention Patients / Veterans: If you have questions or concerns about these test results, please contact your ordering provider or primary care team. Primary Interpreting Staff: RADIOLOGY,OUTSIDE SERVICE, Staff Physician / RADIOLOGY,OUTSIDE SERVICE [facility] Nov 13, 2023 03:59 PM CHEST X-RAY, 2 VIEWS: JESUS ABRAHAM [id number] -1935 M Exm Date: NOV 13, 2023@15:59 Req Phys: CYRUS EVANS Pat Loc: -EMERGENCY DEPT 2ND SHIFT (R Img Loc: -MAIN RADIOLOGY SUITE Service: [facility], [facility] [address] [place] [address] (Case [id number] COMPLETE) CHEST X-RAY, 2 VIEWS (RAD Detailed) CPT:66574 Reason for Study: chest pain Clinical History: Report Status: Verified Date Reported: NOV 13, 2023 Date Verified: NOV 13, 2023 Production Sanitizer E-Sig:/ES/AGUSTO LIPSCOMB Report: INDICATION: chest pain COMPARISON: None TECHNIQUE: Chest 2 views Impression: No large pleural effusion or sizable pneumothorax. No new focal consolidation. Unchanged cardiomediastinal silhouette. Primary Interpreting Staff: AGUSTO LIPSCOMB, RADIOLOGIST (Production Sanitizer) /AGUSTO [place] [facility] Pathology Reports: +/- 30 days of [...] the Encounter. The data comes from all [place] treatment facilities. Date/Time Pathology Report Provider Source Nov 13, 2023 06:10 PM LR MICROBIOLOGY RE PORT: Accession [UID]: [id number] [[id number]] Received: Nov 13, 2023@18:22 Collection sample: B [...] By: [facility] [address] [place] [address]# [id number] [address] [facility] [address] [place] [address] [facility] Nov 13, 2023 06:05 PM LR MICROBIOLOGY RE PORT: Accession [UID]: [id number] [[id number]] Received: Nov 13, 2023@18:23 Collection sample: B [...] Bacteriology Report Performed By: HANNY BAEZ [address] [facility] CLIA# [id number] [address] [facility] [address] [place] [address] [facility]
--- OUTSIDE RECORDS SUMMARY | 2024-05-17 21:52 | XMS_ITS ---
ID DAILY HOSPITALIZATION DATA [facility] Encounter Summary Created on: May 17, 2024 JESUS ABRAHAM : 1935 Sex: Male Author Name [facility] Organization [facility] Address [address] [place] [address] Care Team Providers Care Cone Treater Name Role Phone MEAGHAN QUINTEROS Primary Care [...] PART B Aug 12, 2001 PART B [id number] JESUS ABRAHAM PATIENT MEDICARE (WNR) MEDICARE (M) PART A Aug 12, 2001 PART A [id number] [phone] [place] PATIENT Selected Encounter This section includes the information on record at ID for the Encounter. Date/Time Encounter Type Encounter Description Reason Pro vider Source Nov 14, 2023 01:00 AM Inpatient Visit DAILY HOSPITALIZATION DATA HERNANDO CASTRO Encounter Template Text not used by ID Plan of Treatment: Future Appointments (+ 6 [...] appointments. The data comes from all [facility]. Appointment Date/Time Appointment Type Appointme nt Facility Name Nov 23, 2023 09:00 AM AMBULATORY - MEDICINE [facility] Nov 23, 2023 10:00 AM AMBULATORY - MEDICINE [facility] Nov 23, 2023 11:30 AM AMBULATORY - MEDICINE [facility] Dec 24, 2023 02:45 PM AMBULATORY - SURGERY [facility] Jan 01, 2024 02:00 PM AMBULATORY - REHAB MEDICIN E [facility] Feb 29, 2024 01:30 PM AMBULATORY - MEDICINE [facility] Mar 03, 2024 09:15 AM AMBULATORY - MEDICINE [facility] Mar 08, 2024 01:30 PM AMBULATORY - MEDICINE [facility] Mar 10, 2024 12:45 PM AMBULATORY - SURGERY [facility] Apr 16, 2024 11:00 AM AMBULATORY - REHAB MEDICIN E [facility] May 15, 2024 11:00 AM AMBULATORY - SURGERY [facility] Active, Pending, and Scheduled Orders This section includes a listing of several types of active, pending, and scheduled orders, including clinic medications orders, diagnostic test orders, procedure orders and consult orders; where the start date of the order is 45 days before the date of the Encounter or 45 days after the date of theEncounter. The data comes from all [facility]. Test Date/Time Test Type Test Details Facility Name Nov 13, 2023 09:10 PM Laboratory - Chemi stry Order MRSA SURVL NARES DNA NARES WC [facility] Nov 21, 2023 12:00 AM Laboratory - Chemi stry Order HGA1C BLOOD SP [facility] Nov 21, 2023 12:00 AM Laboratory - Chemi stry Order VITAMIN D, 25-HYDROXY GOLD/RED SST SERUM SP [facility] Lab Results: +/- 30 days [...] Nov 14, 2023 05:33 AM [facility] TSH W/ REFLEX FT4 (STL) Specimen Type: PLASMA No comment entered. Ordering Provider: NAYLA DUNN Report Released Date/Time: Nov 14, 2023 04:23 AM Reporting Lab: [facility] [address] [facility] [address] Performing Lab: [facility] [address] [facility] [address] TSH 3.546 u[IU]/mL 0.47-5 Nov 14, 2023 05:33 AM [facility] PHOSPHOROUS Specimen Type: PLASMA Comment: No hemolysis noted. Ordering Provider: NAYLA DUNN Report Released Date/Time: Nov 14, 2023 04:23 AM Reporting Lab: [facility] [address] [facility] [address] Performing Lab: [facility] [address] [facility] [address] PHOSPHOROUS 2.9 mg/dL 2.3-4.7 Nov 14, 2023 05:33 AM [facility] MAGNESIUM Specimen Type: PLASMA Comment: No hemolysis noted. Ordering Provider: NAYLA DUNN Report Released Date/Time: Nov 14, 2023 04:23 AM Reporting Lab: [facility] [address] [facility] [address] Performing Lab: [facility] [address] [facility] [address] MAGNESIUM 2.1 mg/dL 1.6-2.6 Nov 14, 2023 05:33 AM [facility] BASIC METABOLIC PANEL Specimen Type: PLASMA Comment: No hemolysis noted. Ordering Provider: NAYLA DUNN Report Released Date/Time: Nov 14, 2023 04:23 AM Reporting Lab: [facility] [place] [facility] [address] Performing Lab: [address] [address] CREATININE 0.78 mg/dL 0.7-1.3 UREA NITROGEN 12.0 mg/dL 9.0-25.0 GLUCOSE 83 mg/dL 72-99 SODIUM 136 meq/L 136-145 POTASSIUM 4.4 meq/L 3.5-5 CHLORIDE 103 meq/L 98-107 CARBON DIOXIDE 26 meq/L 22-31 CALCIUM 8.8 mg/dL 8.4-10.4 EGFR (CKD-EPI 2020) 86.3 >60 Nov 14, 2023 05:33 AM [facility] CBC Specimen Type: BLOOD Comment: Manual diff performed on 11/13/23 Ordering Provider: NAYLA DUNN Report Released Date/Time: Nov 14, 2023 04:23 AM Reporting Lab: [address] [address] Performing Lab: [address] [address] WBC 12.8 10*3/uL H 3.6-11.2 RBC 3.87 [...] 10*3/uL 0.00-0.20 Nov 14, 2023 01:30 AM [facility] TROPONIN I Specimen Type: PLASMA No comment entered. Ordering Provider: NAYLA DUNN Report Released Date/Time: Nov 14, 2023 01:10 AM Reporting Lab: [facility] [address] [facility] [address] Performing Lab: [facility] [address] [place] [address] TROPONIN I 0.044 ng/mL H 0-0.033 Nov 13, 2023 10:00 PM [facility] MRSA SURVL NARES DNA Specimen [...] Nov 13, 2023 09:10 PM Reporting Lab: [facility] [address] [place] [address] Performing Lab: [address] [address] MRSA SURVL NARES DNA Negative Negative Nov 13, 2023 07:10 PM [facility] TROPONIN I Specimen Type: PLASMA No comment entered. Ordering Provider: CYRUS EVANS Report Released Date/Time: Nov 13, 2023 06:56 PM Reporting Lab: [facility] [address] [place] [address] Performing Lab: [address] [address] TROPONIN I 0.045 ng/mL H 0-0.033 Nov 13, 2023 06:20 PM [facility] BLOOD GAS PANEL ABG (STL) Specimen Type: VENOUS BLOOD Comment: Test Performed by: [id number] Meter #: [id number] Ordering Provider: CYRUS EVANS Report Released Date/Time: Nov 13, 2023 06:20 PM Reporting Lab: [facility] [address] [place] [address] Performing Lab: [address] [address] GEM PH 7.38 7.31-7.41 GEM PCO2 52 [...] Nov 13, 2023 06:15 PM [facility] COVID-19 DIAGNOSTIC (FLU/RSV)([facility]) Specimen Type: NASOPHARYNX Comment: Qualitative [...] Nov 13, 2023 03:21 PM Reporting Lab: [address] [address] Performing Lab: [facility] [address] [facility] [address] INFLUENZA A Negative Negative INFLUENZA B Negative Negative COVID-19 (L-PB) Not Detected Not Detected RSV (Cepheid) NEGATIVE Negative Nov 13, 2023 06:00 PM [facility] APTT Specimen Type: PLASMA No comment entered. Ordering Provider: CYRUS EVANS Report Released Date/Time: Nov 13, 2023 03:21 PM Reporting Lab: [place] [address] [facility] [address] Performing Lab: [place] [address] [facility] [address] APTT 33.7 s 26.7-39.9 Nov 13, 2023 06:00 PM [facility] PT/INR NEW ([facility]) Specimen Type: PLASMA No comment entered. Ordering Provider: CYRUS EVANS Report Released Date/Time: Nov 13, 2023 03:21 PM Reporting Lab: [place] [address] [facility] [address] Performing Lab: [place] [address] [facility] [address] PROTIME 12.7 s H 9.4-12.5 INR VALUE 1.1 {INR} Nov 13, 2023 04:59 PM [facility] URINALYSIS W/ CX REFLEX ([facility]) Specimen Type: URINE No comment entered. Ordering Provider: CYRUS EVANS Report Released Date/Time: Nov 13, 2023 03:12 PM Reporting Lab: [place] [address] [facility] [address] Performing Lab: [address] [address] URINE COLOR Yellow Yellow U.BILIRUBIN Negative mg/dL [...] Nov 13, 2023 02:20 PM [facility] TROPONIN I Specimen Type: PLASMA Comment: No hemolysis noted. Ordering Provider: CYRUS EVANS Report Released Date/Time: Nov 13, 2023 02:14 PM Reporting Lab: [address] [address] Performing Lab: [address] [address] TROPONIN I 0.044 ng/mL H 0-0.033 Nov 13, 2023 02:20 PM [facility] COMPREHENSIVE METABOLIC PANEL Specimen Type: PLASMA Comment: No hemolysis noted. Ordering Provider: CYRUS EVANS Report Released Date/Time: Nov 13, 2023 02:14 PM Reporting Lab: [address] [address] Performing Lab: [address] [address] CREATININE 1.17 mg/dL 0.7-1.3 UREA NITROGEN 12.7 [...] >60 Nov 13, 2023 02:20 PM [facility] CBC Specimen Type: BLOOD No comment entered. Ordering Provider: CYRUS EVANS Report Released Date/Time: Nov 13, 2023 02:14 PM Reporting Lab: [facility] [address] [facility] [address] Performing Lab: [facility] [address] [facility] [address] WBC 12.5 10*3/uL H 3.6-11.2 RBC 4.21 [...] Source Nov 14, 2023 09:15 AM 0 [facility] Nov 14, 2023 08:10 AM 98.4 70 119/62 18 95 [facility] Nov 14, 2023 06:10 AM 97 66 121/70 18 96 0 [facility] Nov 14, 2023 12:51 AM 0 [facility] Social History: Smoking Status (Most current) and Tobacco Use (All prior to encounter date) This section includes the most current, and the historical, smoking and tobacco- related health factors from the ID facility where the Encounter took place. Current Smoking Status This section includes the most current smoking, or tobacco-related health factor, from the ID facility where the Encounter took place. Date/Time Current Smoking Status Comment Facil ity Nov 14, 2023 01:18 AM ORYX ADMIT TOBACCO SCREEN NO [facility] Tobacco Use History This section includes a history of the smoking, or tobacco-related health factors, that were collected on or before the date of the Encounter. The data comes from the ID facility where the Encounter took place. Date/Time Smoking Status/Tobacco Use Comment F acility Aug 04, 2022 11:30 AM VA-TOBACCO NEVER USED [facility] Mar 11, 2021 10:30 AM VA-TOBACCO FORMER USER [facility] Mar 11, 2021 10:30 AM VA-TOBACCO QUIT 15 YRS OR MORE [facility] Apr 19, 2018 09:07 AM VA-TOBACCO FORMER USER [facility] Apr 19, 2018 09:07 AM VA-TOBACCO QUIT 15 YRS OR MORE [facility] Jul 24, 2017 08:16 AM QUIT TOBACCO >7 YEARS AGO [facility] Apr 16, 2017 12:43 PM QUIT TOBACCO >7 YEARS AGO [facility] Feb 01, 2017 11:47 AM LIFETIME NON-USER OF TOBACCO [facility] Nov 15, 2016 09:00 AM QUIT TOBACCO >7 YEARS AGO [facility] September 11, 2016 06:27 PM QUIT TOBACCO >7 YEARS AGO [facility] Dec 09, 2015 10:17 AM QUIT TOBACCO >7 YEARS AGO [facility] Jan 05, 2015 08:22 AM CURRENT TOBACCO USER [facility] Jan 05, 2015 08:22 AM TOBACCO MEDS OFFER ED BUT DECLINED [facility] Mar 18, 2014 10:40 AM CURRENT TOBACCO USER [facility] Mar 18, 2014 10:40 AM TOBACCO MEDS OFFER ED BUT DECLINED [facility] Nov 04, 2013 09:40 AM CURRENT TOBACCO USER [facility] Nov 26, 2012 08:10 AM QUIT TOBACCO >7 YEARS AGO [facility] May 03, 2009 08:45 AM QUIT TOBACCO >7 YEARS AGO [facility] Jul 06, 2008 08:46 AM CURRENT TOBACCO USER [facility] Jul 25, 2007 12:30 PM QUIT TOBACCO >12 M O & <7 YRS AGO [facility] Jun 07, 2006 09:21 AM CURRENT TOBACCO USER [facility] Jun 07, 2006 09:21 [facility] Aug 25, 2005 11:01 AM CURRENT TOBACCO USER [facility] Aug 25, 2005 11:01 AM TOBACCO CONTEMPLATION STAGE [facility] Oct 25, 2004 10:18 AM CURRENT NON-TOBACC O USER-HX OF USE [facility] Oct 25, 2004 10:18 AM TOBACCO TERMINATION STAGE [facility] Aug 24, 2003 10:43 AM CURRENT NON-TOBACC O USER-HX OF USE [facility] Aug 24, 2003 10:43 AM TOBACCO TERMINATION STAGE [facility] Aug 05, 2002 09:55 AM CURRENT NON-TOBACC O USER-HX OF USE QUIT [facility] Apr 15, 2001 08:28 AM CURRENT NON-TOBACC O USER-HX OF USE quit in 1979 [facility] Advance Directives: All historical and current Section Date Range: From patient's date of to the date document was created. This section includes ALL of a patient's completed or amended ID Advance and Rescinded Directives. The entries below indicate that a directive exists for the patient, but an actual copy is not included with this document. The data comes from all ID facilities. Date Advance Directives Provider Source Oct 19, 2023 ADVANCE DIRECTIVE WANG MURILLO [facility] Dec 12, 2022 RESCINDED ADVANCE DIRECTIVE JITENDRA MEADOWS [facility] September 12, 2016 ADVANCE DIRECTIVE DISCUSSION YVETTE [facility]OWS [facility] Radiology Reports: +/- 30 days [...] the Encounter. The data comes from all ID treatment facilities. Date/Time Radiology Report Provider Source Nov 23, 2023 09:03 AM NM MYOCARDIAL P SPECT STRESS/REST-P: JESUS ABRAHAM [id number] -1935 M Exm Date: NOV 23, 2023@09:03 Req Phys: MEAGHAN QUINTEROS Loc: -PC TM-C SAME DAY CLINIC (Re Img Loc: -NUCLEAR MEDICINE Service: Unknown [facility] [address] [place] [address] (Case [id number] COMPLETE) NM MYOCARDIAL PERF SPECT STRESS/R(NM Detailed) CPT:67860 Reason for Study: CHEST PAIN, ASSESS SUSPECTED [...] 23, 2023 Date Verified: NOV 23, 2023 Fluorescent Lighting Model Maker E-Sig:/ES/AGUSTO LIPSCOMB Report: PATIENT NAME: JESUS ABRAHAM CASE #: [id number], [id number], [id number], [id number], [id number] EXAMINATION: Rest/Lexiscan Stress Gated SPECT Myocardial Imaging [...] code: 1000. Dictated by Rik Dorantes MD (Blind Hanger), Rodney Smith MD (Blind Hanger) IAgusto, have reviewed the images and report and concur with these findings. Primary Interpreting Staff: AGUSTO LIPSCOMB, RADIOLOGIST (Fluorescent Lighting Model Maker) Primary Interpreting Resident: RIK DORANTES MD, PERSONAL LINES SALES REP /AGUSTO SEN [facility] Nov 13, 2023 04:[address] HEAD W/O CONT: JESUS ABRAHAM [id number] -1935 M Exm Date: NOV 13, 2023@16:07 Req Phys: CYRUS EVANS Loc: [facility]-EMERGENCY DEPT 2ND SHIFT (R Img Loc: [facility]-CT IMAGING [facility] Service: Unknown [facility] [address] [place] [address] (Case [id number] COMPLETE) CT HEAD W/O CONT (CT Detailed) CPT:76822 Reason for Study: confusion Clinical History: Responsible Attending: cyrus evans Attending Contact Number: [phone] Resident Contact Number: Allergies listed in CPRS chart: Patient has answered NKA Creatinine: CREATININE 1.17 mg/dL 11/13/2023 14:20 /eGFR: STL EGFR (within one year). CREATININE 1.17 mg/dL (11/13/23 14:20) Wt: 189.3 lb [85.87 kg] (10/18/2023 10:32) History of: Renal failure, chronic or acute renal disease: NO Report Status: Verified Date Reported: NOV 13, 2023 Date Verified: NOV 13, 2023 Fluorescent Lighting Model Maker E-Sig: Report: CT HEAD W/O CONT HISTORY: confusion COMPARISON: CT head 06/11/2019 TECHNIQUE: Contiguous axial CT images from the level of the skull base through the skull apex, performed at the local ID facility. 269 images were received by the ID National Teleradiology Program (NTP) for interpretation. RADIATION [...] clinical concern, consider MRI. READING PHYSICIAN: Anjum [id number] 11/13/2023 15:14 PDT [facility] National Teleradiology Program [phone] (For Medical Practitioner Use Only) Attention Patients / Veterans: If you have questions or concerns about these test results, please contact your ordering provider or primary care team. Primary Interpreting Staff: RADIOLOGY,OUTSIDE SERVICE, Staff Physician / RADIOLOGY,OUTSIDE SERVICE [facility] Nov 13, 2023 03:59 PM CHEST X-RAY, 2 VIEWS: JESUS ABRAHAM [id number] -1935 M Exm Date: NOV 13, 2023@15:59 Req Phys: CYRUS EVANS Loc: -EMERGENCY DEPT 2ND SHIFT (R Img Loc: -MAIN RADIOLOGY SUITE Service: [facility], [facility] [address] [place] [address] (Case [id number] COMPLETE) CHEST X-RAY, 2 VIEWS (RAD Detailed) CPT:95690 Reason for Study: chest pain Clinical History: Report Status: Verified Date Reported: NOV 13, 2023 Date Verified: NOV 13, 2023 Fluorescent Lighting Model Maker E-Sig:/ES/AGUSTO LIPSCOMB Report: INDICATION: chest pain COMPARISON: None TECHNIQUE: Chest 2 views Impression: No large pleural effusion or sizable pneumothorax. No new focal consolidation. Unchanged cardiomediastinal silhouette. Primary Interpreting Staff: AGUSTO LIPSCOMB, RADIOLOGIST (Fluorescent Lighting Model Maker) /AGUSTO HOOVER [facility] Pathology Reports: +/- 30 days of [...] the Encounter. The data comes from all ID treatment facilities. Date/Time Pathology Report Provider Source Nov 13, 2023 06:10 PM LR MICROBIOLOGY RE PORT: Accession [UID]: [id number] [[id number]] Received: Nov 13, 2023@18:22 Collection sample: B [...] By: [facility] [address] [place] [address]# [id number] [address] [facility] [address] [place] [address] [facility] Nov 13, 2023 06:05 PM LR MICROBIOLOGY RE PORT: Accession [UID]: [id number] [[id number]] Received: Nov 13, 2023@18:23 Collection sample: B [...] Bacteriology Report Performed By: HANNY BAEZ [address] [facility] CLIA# [id number] [facility] [facility] [address] [place] [address] [facility]
--- OUTSIDE RECORDS SUMMARY | 2024-05-17 21:53 | XMS_ITS ---
Author Name [facility] [place] [facility] [facility] [place] Address [address] [place] [address] Care Team Providers Care [facility] Worker Name Role Phone MEAGHAN QUINTEROS Primary Care [...] PART A Aug 12, 2001 PART A [id number] JESUS ABRAHAM PATIENT MEDICARE (WNR) MEDICARE ([place]) PART B Aug 12, 2001 PART B [id number] [phone] LEIGHJESUS PATIENT Selected Encounter This section includes the information on record at [place] for the Encounter. Date/Time Encounter Type Encounter Description Reason Provider Source Nov 14, 2023 03:26 PM Outpatient Encounter ANCILLARY PACKAGE DAILY DATA SANDY JC Encounter Template Text not used by [place] Plan of Treatment: Future Appointments (+ 6 [...] 20 appointments. The data comes from all [facility]. Appointment Date/Time Appointment Type Appointme nt Facility Name Nov 23, 2023 09:00 AM AMBULATORY - MEDICINE [facility] Nov 23, 2023 10:00 AM AMBULATORY - MEDICINE [facility] Nov 23, 2023 11:30 AM AMBULATORY - MEDICINE [facility] Dec 24, 2023 02:45 PM AMBULATORY - SURGERY [facility] Jan 01, 2024 02:00 PM AMBULATORY - REHAB MEDICIN E [facility] Feb 29, 2024 01:30 PM AMBULATORY - MEDICINE [facility] Mar 03, 2024 09:15 AM AMBULATORY - MEDICINE [facility] Mar 08, 2024 01:30 PM AMBULATORY - MEDICINE [facility] Mar 10, 2024 12:45 PM AMBULATORY - SURGERY [facility] Apr 16, 2024 11:00 AM AMBULATORY - REHAB MEDICIN E [facility] May 15, 2024 11:00 AM AMBULATORY - SURGERY [facility] Active, Pending, and Scheduled Orders This section includes a listing of several types of active, pending, and scheduled orders, including clinic medications orders, diagnostic test orders, procedure orders and consult orders; where the start date of the order is 45 days before the date of the Encounter or 45 days after the date of theEncounter. The data comes from all [facility]. Test Date/Time Test Type Test Details Facility Name Nov 13, 2023 09:10 PM Laboratory - Chemi stry Order MRSA SURVL NARES DNA NARES WC [facility] Nov 21, 2023 12:00 AM Laboratory - Chemi stry Order VITAMIN D, 25-HYDROXY GOLD/RED SST SERUM SP [facility] Nov 21, 2023 12:00 AM Laboratory - Chemi stry Order HGA1C BLOOD [facility] Lab Results: +/- 30 days of the [...] Nov 14, 2023 04:23 AM Reporting Lab: [facility] [address] [facility] [address] Performing Lab: [facility] [address] [facility] [address] TSH 3.546 u[IU]/mL 0.47-5 Nov 14, 2023 05:33 AM [facility] PHOSPHOROUS Specimen Type: PLASMA Comment: No hemolysis noted. Ordering Provider: NAYLA DUNN Report Released Date/Time: Nov 14, 2023 04:23 AM Reporting Lab: [facility] [address] [facility] [address] Performing Lab: [facility] [address] [facility] [address] PHOSPHOROUS 2.9 mg/dL 2.3-4.7 Nov 14, 2023 05:33 AM [facility] MAGNESIUM Specimen Type: PLASMA Comment: No hemolysis noted. Ordering Provider: NAYLA DUNN Report Released Date/Time: Nov 14, 2023 04:23 AM Reporting Lab: [facility] [address] [facility] [address] Performing Lab: [facility] [address] [facility] [address] MAGNESIUM 2.1 mg/dL 1.6-2.6 Nov 14, 2023 05:33 AM [facility] BASIC METABOLIC PANEL Specimen Type: PLASMA Comment: No hemolysis noted. Ordering Provider: NAYLA DUNN Report Released Date/Time: Nov 14, 2023 04:23 AM Reporting Lab: [facility] [place] [address] [address] Performing Lab: [address] [address] CREATININE 0.78 mg/dL 0.7-1.3 UREA NITROGEN 12.0 [...] 14, 2023 04:23 AM Reporting Lab: [address] [address] Performing Lab: [address] [address] WBC 12.8 10*3/uL H 3.6-11.2 RBC 3.87 [...] Nov 14, 2023 01:10 AM Reporting Lab: [facility] [address] [facility] [address] Performing Lab: [facility] [address] [place] [phone] TROPONIN I 0.044 ng/mL H 0-0.033 Nov [...] Nov 13, 2023 09:10 PM Reporting Lab: [facility] [address] [place] [address] Performing Lab: [address] [address] MRSA SURVL NARES DNA Negative Negative Nov 13, 2023 07:10 PM [facility] TROPONIN I Specimen Type: PLASMA No comment entered. Ordering Provider: CYRUS EVANS Report Released Date/Time: Nov 13, 2023 06:56 PM Reporting Lab: [facility] [address] [place] [address] Performing Lab: [address] [address] TROPONIN I 0.045 ng/mL H 0-0.033 Nov 13, 2023 06:20 PM [facility] BLOOD GAS PANEL ABG (STL) Specimen Type: VENOUS BLOOD Comment: Test Performed by: [id number] Meter #: [id number] Ordering Provider: CYRUS EVANS Report Released Date/Time: Nov 13, 2023 06:20 PM Reporting Lab: [facility] [address] [place] [phone] Performing Lab: [address] [address] GEM PH 7.38 7.31-7.41 GEM PCO2 52 [...] PM [facility] COVID-19 DIAGNOSTIC (FLU/RSV)([facility]) Specimen Type: NASOPHARYNX Comment: Qualitative [...] 13, 2023 03:21 PM Reporting Lab: [address] [address] Performing Lab: [facility] [address] [facility] [address] INFLUENZA A Negative Negative INFLUENZA B Negative Negative COVID-19 (L-PB) Not Detected Not Detected RSV (Cepheid) NEGATIVE Negative Nov 13, 2023 06:00 PM [facility] PT/INR NEW (L-MA) Specimen Type: PLASMA No comment entered. Ordering Provider: CYRUS EVANS Report Released Date/Time: Nov 13, 2023 03:21 PM Reporting Lab: [facility] [address] [facility] [address] Performing Lab: [facility] [address] [place] [phone] PROTIME 12.7 s H 9.4-12.5 INR VALUE 1.1 {INR} Nov 13, 2023 06:00 PM [facility] APTT Specimen Type: PLASMA No comment entered. Ordering Provider: CYRUS EVANS Report Released Date/Time: Nov 13, 2023 03:21 PM Reporting Lab: [facility] [address] [facility] [address] Performing Lab: [facility] [address] [place] [phone] APTT 33.7 s 26.7-39.9 Nov 13, 2023 04:59 PM [facility] URINALYSIS W/ CX REFLEX (L-PB) Specimen Type: URINE No comment entered. Ordering Provider: CYRUS EVANS Report Released Date/Time: Nov 13, 2023 03:12 PM Reporting Lab: [facility] [address] [facility] [address] Performing Lab: [facility] [address] [place] [phone] URINE COLOR Yellow Yellow U.BILIRUBIN Negative mg/dL [...] 13, 2023 02:14 PM Reporting Lab: [address] [address] Performing Lab: [address] [address] TROPONIN I 0.044 ng/mL H 0-0.033 Nov 13, 2023 02:20 PM [facility] COMPREHENSIVE METABOLIC PANEL Specimen Type: PLASMA Comment: No hemolysis noted. Ordering Provider: CYRUS EVANS Report Released Date/Time: Nov 13, 2023 02:14 PM Reporting Lab: [address] [address] Performing Lab: [address] [address] CREATININE 1.17 mg/dL 0.7-1.3 UREA NITROGEN 12.7 [...] 60.3 >60 Nov 13, 2023 02:20 PM [facility] CBC Specimen Type: BLOOD No comment entered. Ordering Provider: CYRUS EVANS Report Released Date/Time: Nov 13, 2023 02:14 PM Reporting Lab: [facility] [address] [facility] [address] Performing Lab: [facility] [address] [facility] [address] WBC 12.5 10*3/uL H 3.6-11.2 RBC 4.21 [...] Source Nov 14, 2023 09:15 AM 0 [facility] Nov 14, 2023 08:10 AM 98.4 70 119/62 18 95 [facility] Nov 14, 2023 06:10 AM 97 66 121/70 18 96 0 [facility] Nov 14, 2023 12:51 AM 0 [facility] Social History: Smoking Status (Most current) and Tobacco Use (All prior to encounter date) This section includes the most current, and the historical, smoking and tobacco- related health factors from the [place] facility where the Encounter took place. Current Smoking Status This section includes the most current smoking, or tobacco-related health factor, from the [place] facility where the Encounter took place. Date/Time Current Smoking Status Comment Dena ity Nov 14, 2023 01:18 AM ORYX ADMIT TOBACCO SCREEN NO [facility] Tobacco Use History This section includes a history of the smoking, or tobacco-related health factors, that were collected on or before the date of the Encounter. The data comes from the [place] facility where the Encounter took place. Date/Time [...] HOSPITAL Jun 07, 2006 09:21 [facility] Aug [...] O USER-HX OF USE quit in 1979 [facility] Advance Directives: All historical and current Section Date Range: From patient's date of to the date document was created. This section includes ALL of a patient's completed or amended [place] Advance and Rescinded Directives. The entries below indicate that a directive exists for the patient, but an actual copy is not included with this document. The data comes from all [place] facilities. Date Advance Directives Provider Source Oct 19, 2023 ADVANCE DIRECTIVE WANG MURILLO [facility] Dec 12, 2022 RESCINDED ADVANCE DIRECTIVE JITENDRA MEADOWS [facility] September 12, 2016 ADVANCE DIRECTIVE DISCUSSION YVETTE MEADOWS [facility] Radiology Reports: +/- 30 days [...] the Encounter. The data comes from all [place] treatment facilities. Date/Time Radiology Report Provider Source Nov 23, 2023 09:03 AM [place] MYOCARDIAL P SPECT STRESS/REST-P: JESUS ABRAHAM [id number] -1935 M Exm Date: NOV 23, 2023@09:03 Req Phys: MEAGHAN QUINTEROS Loc: -PC TM-C SAME DAY CLINIC (Re Img Loc: -NUCLEAR MEDICINE Service: Unknown [facility] [address] [place] [address] (Case [id number] COMPLETE) NM MYOCARDIAL PERF SPECT STRESS/R(NM Detailed) CPT:54540 Reason for Study: CHEST PAIN, ASSESS SUSPECTED [...] 23, 2023 Date Verified: NOV 23, 2023 Radiology Scheduler E-Sig:/ES/AGUSTO LIPSCOMB Report: PATIENT NAME: JESUS ABRAHAM CASE #: [id number], [id number], [id number], [id number], [id number] EXAMINATION: Rest/Lexiscan Stress Gated SPECT Myocardial Imaging [...] code: 1000. Dictated by Rik Dorantes MD (Nursing Program Coordinator), Rodney Smith MD (Nursing Program Coordinator) IAgusto, have reviewed the images and report and concur with these findings. Primary Interpreting Staff: AGUSTO LIPSCOMB, RADIOLOGIST (Radiology Scheduler) Primary Interpreting Resident: RIK DORANTES MD, RN PERIOPERATIVE /AGUSTO SEN [facility] Nov 13, 2023 04:[address] HEAD W/O CONT: JESUS ABRAHAM [id number] -[id number] M Exm Date: NOV 13, 2023@16:07 Req Phys: CYRUS EVANS Loc: [facility]-EMERGENCY DEPT 2ND SHIFT (R Img Loc: [facility]-CT IMAGING [facility] Service: Unknown [facility] [address] [place] [address] (Case [id number] COMPLETE) CT HEAD W/O CONT (CT Detailed) CPT:13333 Reason for Study: confusion Clinical History: Responsible Attending: cyrus evans Attending Contact Number: [phone] Resident Contact Number: Allergies listed in CPRS chart: Patient has answered NKA Creatinine: CREATININE 1.17 mg/dL 11/13/2023 14:20 /eGFR: STL EGFR (within one year). CREATININE 1.17 mg/dL (11/13/23 14:20) Wt: 189.3 lb [85.87 kg] (10/18/2023 10:32) History of: Renal failure, chronic or acute renal disease: NO Report Status: Verified Date Reported: NOV 13, 2023 Date Verified: NOV 13, 2023 Radiology Scheduler E-Sig: Report: CT HEAD W/O CONT HISTORY: confusion COMPARISON: CT head 06/11/2019 TECHNIQUE: Contiguous axial CT images from the level of the skull base through the skull apex, performed at the local [place] facility. 269 images were received by the [place] National Teleradiology Program (NTP) for interpretation. RADIATION [...] ongoing clinical concern, consider MRI. READING PHYSICIAN: Ajnum [id number] 11/13/2023 15:14 PDT [facility] National Teleradiology Program [phone] (For Medical Practitioner Use Only) Attention Patients / Veterans: If you have questions or concerns about these test results, please contact your ordering provider or primary care team. Primary Interpreting Staff: RADIOLOGY,OUTSIDE SERVICE, Staff Physician / RADIOLOGY,OUTSIDE SERVICE [facility] Nov 13, 2023 03:59 PM CHEST X-RAY, 2 VIEWS: JESUS ABRAHAM [id number] -[id number] M Exm Date: NOV 13, 2023@15:59 Req Phys: CYRUS EVANS Pat Loc: -EMERGENCY DEPT 2ND SHIFT (R Img Loc: -MAIN RADIOLOGY SUITE Service: [facility], [facility] [address] [place] [address] (Case [id number] COMPLETE) CHEST X-RAY, 2 VIEWS (RAD Detailed) CPT:34198 Reason for Study: chest pain Clinical History: Report Status: Verified Date Reported: NOV 13, 2023 Date Verified: NOV 13, 2023 Radiology Scheduler E-Sig:/ES/AGUSTO LIPSCOMB Report: INDICATION: chest pain COMPARISON: None TECHNIQUE: Chest 2 views Impression: No large pleural effusion or sizable pneumothorax. No new focal consolidation. Unchanged cardiomediastinal silhouette. Primary Interpreting Staff: AGUSTO LIPSCOMB, RADIOLOGIST (Radiology Scheduler) /AGUSTO [place] [facility] Pathology Reports: +/- 30 days [...] the Encounter. The data comes from all [place] treatment facilities. Date/Time Pathology Report Provider Source Nov 13, 2023 06:10 PM LR MICROBIOLOGY RE PORT: Accession [UID]: [id number] [[id number]] Received: Nov 13, 2023@18:22 Collection sample: B [...] By: [facility] [address] [place] [address]# [id number] [address] [facility] [address] [place] [address] [facility] Nov 13, 2023 06:05 PM LR MICROBIOLOGY RE PORT: Accession [UID]: [id number] [[id number]] Received: Nov 13, 2023@18:23 Collection sample: B [...] Performing Laboratory: Bacteriology Report Performed By: HANNY BEAZ [address] [facility] CLIA# [id number] [address] [facility] [address] [place] [address] [facility]
--- OUTSIDE RECORDS SUMMARY | 2024-05-17 21:53 | XMS_ITS | Encounter Summary ---
Author Name [facility] [place] [facility] [place] Address [address] [place] [address] Care Team Providers Care Manager Reading Name Role Phone MEAGHAN QUINTEROS Primary Care [...] PART B Aug 12, 2001 PART B [id number] [phone] [place]US BUTT PATIENT MEDICARE (WNR) MEDICARE (M) PART A Aug 12, 2001 PART A [id number] [phone] JESUS ABRAHAM PATIENT Selected Encounter This section includes the information on record at [place] for the Encounter. Date/Time Encounter Type Encounter Description Reason Pro vider Source Nov 07, 2023 02:26 PM Outpatient Encounter ADMIN PAT ACTIVTIES (MASNONCT) IHE Encounter Template Text not used by [place] Plan of Treatment: Future Appointments (+ 6 [...] data comes from all [facility]. Appointment Date/Time Appointment Type Appointme nt Facility Name Nov 13, 2023 02:03 PM AMBULATORY - MEDICINE [facility] Nov 23, 2023 09:00 AM AMBULATORY - MEDICINE [facility] Nov 23, 2023 10:00 AM AMBULATORY - MEDICINE [facility] Nov 23, 2023 11:30 AM AMBULATORY - MEDICINE [facility] Dec 24, 2023 02:45 PM AMBULATORY - SURGERY [facility] Jan 01, 2024 02:00 PM AMBULATORY - REHAB MEDICIN E [facility] Feb 29, 2024 01:30 PM AMBULATORY - MEDICINE [facility] Mar 03, 2024 09:15 AM AMBULATORY - MEDICINE [facility] Mar 08, 2024 01:30 PM AMBULATORY - MEDICINE [facility] Mar 10, 2024 12:45 PM AMBULATORY - SURGERY [facility] Apr 16, 2024 11:00 AM AMBULATORY - REHAB MEDICIN [facility] Active, Pending, and Scheduled Orders This section includes a listing of several types of active, pending, and scheduled orders, including clinic medications orders, diagnostic test orders, procedure orders and consult orders; where the start date of the order is 45 days before the date of the Encounter or 45 days after the date of theEncounter. The data comes from all [facility]. Test Date/Time Test Type Test Details Facility Name Nov 13, 2023 09:10 PM Laboratory - Chemi stry Order MRSA SURVL NARES DNA NARES WC [facility] Nov 21, 2023 12:00 AM Laboratory - Chemi stry Order HGA1C BLOOD SP [facility] Nov 21, 2023 12:00 AM Laboratory - Chemi stry Order VITAMIN D, 25-HYDROXY GOLD/RED SST SERUM SP [facility] Lab Results: [...] Nov 14, 2023 05:33 AM [facility] TSH W/ REFLEX FT4 (STL) Specimen Type: PLASMA No comment entered. Ordering Provider: NAYLA DUNN Report Released Date/Time: Nov 14, 2023 04:23 AM Reporting Lab: [facility] [address] [facility] [address] Performing Lab: [facility] [address] [facility] [address] TSH 3.546 u[IU]/mL 0.47-5 Nov 14, 2023 05:33 AM [facility] PHOSPHOROUS Specimen Type: PLASMA Comment: No hemolysis noted. Ordering Provider: NAYLA DUNN Report Released Date/Time: Nov 14, 2023 04:23 AM Reporting Lab: [facility] [address] [facility] [address] Performing Lab: [facility] [address] [facility] [address] PHOSPHOROUS 2.9 mg/dL 2.3-4.7 Nov 14, 2023 05:33 AM [facility] MAGNESIUM Specimen Type: PLASMA Comment: No hemolysis noted. Ordering Provider: NAYLA DUNN Report Released Date/Time: Nov 14, 2023 04:23 AM Reporting Lab: [facility] [address] [facility] [address] Performing Lab: [facility] [address] [facility] [address] MAGNESIUM 2.1 mg/dL 1.6-2.6 Nov 14, 2023 05:33 AM [facility] BASIC METABOLIC PANEL Specimen Type: PLASMA Comment: No hemolysis noted. Ordering Provider: NAYLA DUNN Report Released Date/Time: Nov 14, 2023 04:23 AM Reporting Lab: [address] [address] Performing Lab: [address] [address] CREATININE 0.78 mg/dL 0.7-1.3 UREA NITROGEN 12.0 mg/dL 9.0-25.0 GLUCOSE 83 mg/dL 72-99 SODIUM 136 meq/L 136-145 POTASSIUM 4.4 meq/L 3.5-5 CHLORIDE 103 meq/L 98-107 CARBON DIOXIDE 26 meq/L 22-31 CALCIUM 8.8 mg/dL 8.4-10.4 EGFR (CKD-EPI 2020) 86.3 >60 Nov 14, 2023 05:33 AM [facility] CBC Specimen Type: BLOOD Comment: Manual diff performed on 11/13/23 Ordering Provider: NAYLA DUNN Report Released Date/Time: Nov 14, 2023 04:23 AM Reporting Lab: [address] [address] Performing Lab: [address] [address] WBC 12.8 10*3/uL H 3.6-11.2 RBC 3.87 [...] Nov 14, 2023 01:30 AM [facility] TROPONIN I Specimen Type: PLASMA No comment entered. Ordering Provider: NAYLA DUNN Report Released Date/Time: Nov 14, 2023 01:10 AM Reporting Lab: [facility] [address] [place] [address] Performing Lab: [facility] [address] [place] [address] TROPONIN I 0.044 ng/mL H 0-0.033 Nov 13, 2023 10:00 PM [facility] MRSA SURVL NARES DNA Specimen [...] Nov 13, 2023 09:10 PM Reporting Lab: [address] [address] Performing Lab: [address] [address] MRSA SURVL NARES DNA Negative Negative Nov 13, 2023 07:10 PM [facility] TROPONIN I Specimen Type: PLASMA No comment entered. Ordering Provider: CYRUS EVANS Report Released Date/Time: Nov 13, 2023 06:56 PM Reporting Lab: [facility] [address] [place] [address] Performing Lab: [address] [address] TROPONIN I 0.045 ng/mL H 0-0.033 Nov 13, 2023 06:20 PM [facility] BLOOD GAS PANEL ABG (STL) Specimen Type: VENOUS BLOOD Comment: Test Performed by: [id number] Meter #: [id number] Ordering Provider: CYRUS EVANS Report Released Date/Time: Nov 13, 2023 06:20 PM Reporting Lab: [facility] [address] [facility] [address] Performing Lab: [address] [address] GEM PH 7.38 7.31-7.41 GEM PCO2 52 [...] Nov 13, 2023 06:15 PM [facility] COVID-19 DIAGNOSTIC (FLU/RSV)([facility]) [...] 2023 03:21 PM Reporting Lab: [facility] [address] [place] [address] Performing Lab: [facility] [address] [facility] [address] INFLUENZA A Negative Negative INFLUENZA B Negative Negative COVID-19 (STL-PB) Not Detected Not Detected RSV (Cepheid) NEGATIVE Negative Nov 13, 2023 06:00 PM [facility] PT/INR NEW (STL-MA) Specimen Type: PLASMA No comment entered. Ordering Provider: CYRUS EVANS Report Released Date/Time: Nov 13, 2023 03:21 PM Reporting Lab: [facility] [address] [facility] [address] Performing Lab: [facility] [address] [place] [address] PROTIME 12.7 s H 9.4-12.5 INR VALUE 1.1 {INR} Nov 13, 2023 06:00 PM [facility] APTT Specimen Type: PLASMA No comment entered. Ordering Provider: CYRUS EVANS Report Released Date/Time: Nov 13, 2023 03:21 PM Reporting Lab: [facility] [address] [facility] [address] Performing Lab: [facility] [address] [place] [address] APTT 33.7 s 26.7-39.9 Nov 13, 2023 04:59 PM [facility] URINALYSIS W/ CX REFLEX (L-PB) Specimen Type: URINE No comment entered. Ordering Provider: CYRUS EVANS Report Released Date/Time: Nov 13, 2023 03:12 PM Reporting Lab: [facility] [address] [facility] [address] Performing Lab: [facility] [address] [facility] [address] URINE COLOR Yellow Yellow U.BILIRUBIN Negative mg/dL [...] Nov 13, 2023 02:20 PM [facility] TROPONIN I Specimen Type: PLASMA Comment: No hemolysis noted. Ordering Provider: CYRUS EVANS Report Released Date/Time: Nov 13, 2023 02:14 PM Reporting Lab: [address] [address] Performing Lab: [address] [address] TROPONIN I 0.044 ng/mL H 0-0.033 Nov 13, 2023 02:20 PM [facility] COMPREHENSIVE METABOLIC PANEL Specimen Type: PLASMA Comment: No hemolysis noted. Ordering Provider: CYRUS EVANS Report Released Date/Time: Nov 13, 2023 02:14 PM Reporting Lab: [address] [address] Performing Lab: [address] [address] CREATININE 1.17 mg/dL 0.7-1.3 UREA NITROGEN 12.7 [...] 60.3 >60 Nov 13, 2023 02:20 PM [facility] CBC Specimen Type: BLOOD No comment entered. Ordering Provider: CYRUS EVANS Report Released Date/Time: Nov 13, 2023 02:14 PM Reporting Lab: [facility] [address] [facility] [address] Performing Lab: [facility] [address] [facility] [address] WBC 12.5 10*3/uL H 3.6-11.2 RBC 4.21 [...] and tobacco- related health factors from the [place] facility where the Encounter took place. Current Smoking Status This section includes the most current smoking, or tobacco-related health factor, from the [place] facility where the Encounter took place. Date/Time Current Smoking Status Comment Dena sarkar Aug 04, 2022 11:30 AM VA-TOBACCO NEVER USED [facility] Tobacco Use History This section includes a history of the smoking, or tobacco-related health factors, that were collected on or before the date of the Encounter. The data comes from the [place] facility where the Encounter took place. Date/Time [...] CENTER Jun 07, 2006 09:21 AM TOBACCO [facility] [...] ALL of a patient's completed or amended [place] Advance and Rescinded Directives. The entries below indicate that a directive exists for the patient, but an actual copy is not included with this document. The data comes from all [facility]. Date Advance Directives Provider Source Oct 19, 2023 ADVANCE DIRECTIVE WANG MURILLO [facility] Dec 12, 2022 RESCINDED ADVANCE DIRECTIVE JITENDRA MEADOWS [facility] September 12, 2016 ADVANCE DIRECTIVE DISCUSSION YVETTE MEADOWS [facility] Radiology Reports: +/- 30 days [...] the Encounter. The data comes from all [place] treatment facilities. Date/Time Radiology Report Provider Source Nov 23, 2023 09:03 AM NM MYOCARDIAL P SPECT STRESS/REST-P: JESUS ABRAHAM [id number] -[id number] M Exm Date: NOV 23, 2023@09:03 Req Phys: MEAGHAN QUINTEROS Loc: [facility]-PC TM-C SAME DAY CLINIC (Re Img Loc: [facility]-NUCLEAR MEDICINE Service: Unknown [facility] [address] [place] [address] (Case [id number] COMPLETE) NM MYOCARDIAL PERF SPECT STRESS/R(NM Detailed) CPT:70684 Reason for Study: CHEST PAIN, ASSESS SUSPECTED [...] 23, 2023 Date Verified: NOV 23, 2023 Belt Operator E-Sig:/ES/AGUSTO GOVEA Report: PATIENT NAME: JESUS ABRAHAM CASE #: [id number], [id number] EXAMINATION: Rest/Lexiscan Stress Gated SPECT Myocardial Imaging [...] code: 1000. Dictated by Rik Brand MD (Latex Foam Worker), Rodney Smith MD (Latex Foam Worker) I, Agusto Govea, have reviewed the images and report and concur with these findings. Primary Interpreting Staff: AGUSTO GOVEA, RADIOLOGIST (Belt Operator) Primary Interpreting Resident: RIK BRAND MD, HEEL CURVER /AGUSTO MATS [facility] Nov 13, 2023 04:[address] HEAD W/O CONT: JESUS ABRAHAM [id number] -[id number] M Ex Date: NOV 13, 2023@16:07 Req Phys: CYRUS EVANS Loc: [facility]-EMERGENCY DEPT 2ND SHIFT (R Img Loc: [facility]-CT IMAGING [facility] Service: [address] [address] (Case [id number] COMPLETE) CT HEAD W/O CONT (CT Detailed) CPT:40488 Reason for Study: confusion Clinical History: Responsible Attending: cyrus evans Attending Contact Number: [phone] Resident Contact Number: Allergies listed in CPRS chart: Patient has answered NKA Creatinine: CREATININE 1.17 mg/dL 11/13/2023 14:20 /eGFR: STL EGFR (within one year). CREATININE 1.17 mg/dL (11/13/23 14:20) Wt: 189.3 lb [85.87 kg] (10/18/2023 10:32) History of: Renal failure, chronic or acute renal disease: NO Report Status: Verified Date Reported: NOV 13, 2023 Date Verified: NOV 13, 2023 Belt Operator E-Sig: Report: CT HEAD W/O CONT HISTORY: confusion COMPARISON: CT head 06/11/2019 TECHNIQUE: Contiguous axial CT images from the level of the skull base through the skull apex, performed at the local [place] facility. 269 images were received by the [place] National Teleradiology Program (NTP) for interpretation. RADIATION [...] clinical concern, consider MRI. READING PHYSICIAN: Anjum [id number] 11/13/2023 15:14 PDT [facility] National Teleradiology Program [phone] (For Medical Practitioner Use Only) Attention Patients / Veterans: If you have questions or concerns about these test results, please contact your ordering provider or primary care team. Primary Interpreting Staff: RADIOLOGY,OUTSIDE SERVICE, Staff Physician / RADIOLOGY,OUTSIDE SERVICE [facility] Nov 13, 2023 03:59 PM CHEST X-RAY, 2 VIEWS: JESUS ABRAHAM [id number] -[id number] M Exm Date: NOV 13, 2023@15:59 Req Phys: CYRUS EVANS Loc: [facility]-EMERGENCY DEPT 2ND SHIFT (R Img Loc: [facility]-MAIN RADIOLOGY SUITE Service: Unknown [facility] [address] [place] [address] (Case [id number] COMPLETE) CHEST X-RAY, 2 VIEWS (RAD Detailed) CPT:70238 Reason for Study: chest pain Clinical History: Report Status: Verified Date Reported: NOV 13, 2023 Date Verified: NOV 13, 2023 Belt Operator E-Sig:/ES/AGUSTO GOVEA Report: INDICATION: chest pain COMPARISON: None TECHNIQUE: Chest 2 views Impression: No large pleural effusion or sizable pneumothorax. No new focal consolidation. Unchanged cardiomediastinal silhouette. Primary Interpreting Staff: AGUSTO GOVEA, RADIOLOGIST ([place]idy) /AGUSTO [facility] Pathology Reports: +/- 30 days [...] the Encounter. The data comes from all [place] treatment facilities. Date/Time Pathology Report Provider Source Nov 13, 2023 06:10 PM LR MICROBIOLOGY RE PORT: Accession [UID]: [id number] [[id number]] Received: Nov 13, 2023@18:22 Collection sample: B [...] --=--=--=--=--=--=-- Performing Laboratory: Bacteriology Report Performed By: [facility] CLIA# [id number] [address] [facility] [address] [place] [address] [facility] Nov 13, 2023 06:05 PM LR MICROBIOLOGY RE PORT: Accession [UID]: [id number] [[id number]] Received: Nov 13, 2023@18:23 Collection sample: B [...] --=--=--=--=--=--=-- Performing Laboratory: Bacteriology Report Performed By: [facility] CLIA# [id number] [address] [facility] [address] [place] [address] [facility] Encounter Notes: All associated encounter notes This section contains the clinical notes associated to the Encounter. Date/Time Encounter Note(s) Provider Source Nov 13, 2023 08:39 AM ADDENDUM: LOCAL TITLE: Addendum STANDARD TITLE: ADDENDUM DATE OF NOTE: NOV 13, 2023@08:39:43 ENTRY DATE: NOV 13, 2023@08:39:43 AUTHOR: AGUEDA DAWSON COSIGNER: URGENCY: STATUS: COMPLETED RNCM spoke with patient's granddaughter this morning reporting that the pt. did go to the ED yesterday. [facility] where they did evaluate him and found no findings. They did EKG and lab work, WBC elevated 11, but will fax records from [facility] to [facility]. Patient is doing fine at this time, RNCM will update PCP.Patient has PCP appt. 11/22. /manuel/ AGUEDA DAWSON Registered Nurse Signed: 11/13/2023 08:45 Receipt Acknowledged By: 11/13/2023 11:19 /manuel/ MEAGHAN QUINTEROS MD STAFF PHYSICIAN --- Original Document --- 11/07/23 CONTACT NOTE STL: Veterans name and last 4 were used to verify identity Verified Veterans telephone #/Updated telephone number in the system REASON FOR CALL: Other: Reason for call: Patient's grandaughter, Cassandra, mentioned him needing an Echo, and had some concerns about his last same day visit [phone] /manuel/ JON GOLDEN Signed: 11/07/2023 14:29 Receipt Acknowledged By: 11/12/2023 15:14 /pennie DAWSON Registered Nurse 11/12/2023 20:58 /manuel/ MEAGHAN QUINTEROS MD STAFF PHYSICIAN 11/12/2023 ADDENDUM STATUS: COMPLETED RNCM called patient's granddaughter back, stating that the patient went to the urgent care 11/03 at [facility]. And they heard fluid sounds around his heart and they recommend that the patient has an Echogram. She also stated they recommend patient going to the ED, but wants to hear it from his PCP, RNCM will alert PCP. /pennie DAWSON Registered Nurse Signed: 11/12/2023 15:22 Receipt Acknowledged By: 11/12/2023 20:58 /pennie QUINTEROS MD STAFF PHYSICIAN 11/12/2023 ADDENDUM STATUS: COMPLETED RNCM called patient's granddaughter back an advised to present patient to the ED for evaluation, granddaughter verbalized understanding. /pennie DAWSON Registered Nurse Signed: 11/12/2023 15:26 11/12/2023 ADDENDUM STATUS: COMPLETED RNCM also [facility] documents from [facility] fax to [phone]. /pennie DAWSON Registered Nurse Signed: 11/12/2023 15:32 11/12/2023 ADDENDUM STATUS: UNSIGNED You may not VIEW this UNSIGNED Addendum. AGUEDA DAWSON [facility] Nov 12, 2023 03:18 PM ADDENDUM: LOCAL TITLE: Addendum STANDARD TITLE: ADDENDUM DATE OF NOTE: NOV 12, 2023@15:18:15 ENTRY DATE: NOV 12, 2023@15:18:16 AUTHOR: AGUEDA DAWSON COSIGNER: URGENCY: STATUS: COMPLETED RNCM called patient's granddaughter back, stating that the patient went to the urgent care 11/03 at [facility]. And they heard fluid sounds around his heart and they recommend that the patient has an Echogram. She also stated they recommend patient going to the ED, but wants to hear it from his PCP, RNCM will alert PCP. /pennie DAWSON Registered Nurse Signed: 11/12/2023 15:22 Receipt Acknowledged By: 11/12/2023 20:58 /pennie QUINTEROS MD STAFF PHYSICIAN --- Original Document --- 11/07/23 CONTACT NOTE STL: Veterans name and last 4 were used to verify identity Verified Veterans telephone #/Updated telephone number in the system REASON FOR CALL: Other: Reason for call: Patient's Cassandra holloway, mentioned him needing an Echo, and had some concerns about his last same day visit [phone] /manuel/ JON GOLDEN Signed: 11/07/2023 14:29 Receipt Acknowledged By: 11/12/2023 15:14 /manuel/ AGUEDA DAWSON Registered Nurse 11/12/2023 20:58 /manuel/ MEAGHAN QUINTEROS MD STAFF PHYSICIAN 11/12/2023 ADDENDUM STATUS: COMPLETED RNCM called patient's granddaughter back an advised to present patient to the ED for evaluation, granddaughter verbalized understanding. /pnenie DAWSON Registered Nurse Signed: 11/12/2023 15:26 11/12/2023 ADDENDUM STATUS: COMPLETED RNCM also request amie to have medical documents from [employer] fax to [phone]. /pennie DAWSON Registered Nurse Signed: 11/12/2023 15:32 11/12/2023 ADDENDUM STATUS: UNSIGNED You may not VIEW this UNSIGNED Addendum. AGUEDA DAWSON [facility] Nov 07, 2023 02:26 PM ADMINISTRATIVE NOT E: LOCAL TITLE: CONTACT NOTE STL STANDARD TITLE: ADMINISTRATIVE NOTE DATE OF NOTE: NOV 07, 2023@14:26 ENTRY DATE: NOV 07, 2023@14:26:53 AUTHOR: JON VALVERDE EXP COSIGNER: URGENCY: STATUS: COMPLETED CONTACT NOTE STL Has ADDENDA Veterans name and last 4 were used to verify identity Verified Veterans telephone #/Updated telephone number in the system REASON FOR CALL: Other: Reason for call: Patient's Cassandra holloway, mentioned him needing an Echo, and had some concerns about his last same day visit [phone] /manuel/ JON GOLDEN Signed: 11/07/2023 14:29 Receipt Acknowledged By: 11/12/2023 15:14 /pennie DAWSON Registered Nurse 11/12/2023 20:58 /manuel/ MEAGHAN QUINTEROS MD STAFF PHYSICIAN 11/12/2023 ADDENDUM STATUS: COMPLETED RNCM called patient's granddaughter back, stating that the patient went to the urgent care 11/03 at [facility]. And they heard fluid sounds around his heart and they recommend that the patient has an Echogram. She also stated they recommend patient going to the ED, but wants to hear it from his PCP, RNCM will alert PCP. /pennie DAWSON Registered Nurse Signed: 11/12/2023 15:22 Receipt Acknowledged By: 11/12/2023 20:58 /manuel/ MEAGHAN QUINTEROS MD STAFF PHYSICIAN 11/12/2023 ADDENDUM STATUS: COMPLETED RNCM called patient's granddaughter back an advised to present patient to the ED for evaluation, granddaughter verbalized understanding. /pennie DAWSON Registered Nurse Signed: 11/12/2023 15:26 11/12/2023 ADDENDUM STATUS: COMPLETED RNCM also request amie to have medical documents from [facility] fax to [phone]. /pennie DAWSON Registered Nurse Signed: 11/12/2023 15:32 11/12/2023 ADDENDUM STATUS: COMPLETED Spoke to Cassadnra who has concerns about patient developing new vertigo over the last 2 days with difficulty ambulating. He denies lightheadedness but has a strong room spinning sensation. We discussed that this could be many etiologies including an acute ischemic stroke, meniere's flare, or BPPV. She asked about vestibular therapy but this would not be indicated without a known etiology. Given his rapid decline and advanced age, I recommend they convince him to come to the ER for a full workup including an MRI of his brain, Physical therapy assessment, possible neurology consult, and he can also have a TTE and stress test done during admission. She will keep me updated on the plan. For now I have: -change stress test request from treadmill to lexiscan d/t ambulation difficulties -order TTE outpatient /es/ MEAGHAN QUINTEROS MD STAFF PHYSICIAN Signed: 11/13/2023 11:40 11/13/2023 ADDENDUM STATUS: COMPLETED RNCM spoke with patient's granddaughter this morning reporting that the pt. did go to the ED yesterday. [facility] where they did evaluate him and found no findings. They did EKG and lab work, WBC elevated 11, but will fax records from [facility] to [facility]. Patient is doing fine at this time, RNCM will update PCP.Patient has PCP appt. 11/22. /es/ AGUEDA DAWSON Registered Nurse Signed: 11/13/2023 08:45 Receipt Acknowledged By: 11/13/2023 11:19 /manuel/ MEAGHAN QUINTEROS MD STAFF PHYSICIAN JON VALVERDE [facility]
--- OUTSIDE RECORDS SUMMARY | 2024-05-17 21:53 | XMS_ITS ---
[place] DAILY HOSPITALIZATION DATA [facility] Encounter Summary Created on: May 17, 2024 JESUS ABRAHAM : 1935 Sex: Male Author Name [facility] ([place] Organization [facility] [place] Address [address] [place] [address] Care Team Providers Care Supervisor Nut Processing Name Role Phone MEAGHAN QUINTEROS Primary Care [...] PART A Aug 12, 2001 PART A [id number] JESUS ABRAHAM PATIENT MEDICARE (WNR) MEDICARE (M) PART B Aug 12, 2001 PART B [id number] TOBIDANAYJESUS BUTT PATIENT Selected Encounter This section includes the information on record at [place] for the Encounter. Date/Time Encounter Type Encounter Description Reason Pro vider Source Nov 14, 2023 03:00 PM Inpatient Visit DAILY HOSPITALIZATION DATA SANDY JC Encounter Template Text not used by [place] Plan of Treatment: Future Appointments (+ 6 [...] 20 appointments. The data comes from all [facility]. Appointment Date/Time Appointment Type Appointme nt Facility Name Nov 23, 2023 09:00 AM AMBULATORY - MEDICINE [facility] Nov 23, 2023 10:00 AM AMBULATORY - MEDICINE [facility] Nov 23, 2023 11:30 AM AMBULATORY - MEDICINE [facility] Dec 24, 2023 02:45 PM AMBULATORY - SURGERY [facility] Jan 01, 2024 02:00 PM AMBULATORY - REHAB MEDICIN E [facility] Feb 29, 2024 01:30 PM AMBULATORY - MEDICINE [facility] Mar 03, 2024 09:15 AM AMBULATORY - MEDICINE [facility] Mar 08, 2024 01:30 PM AMBULATORY - MEDICINE [facility] Mar 10, 2024 12:45 PM AMBULATORY - SURGERY [facility] Apr 16, 2024 11:00 AM AMBULATORY - REHAB MEDICIN E [facility] May 15, 2024 11:00 AM AMBULATORY - SURGERY [facility] Active, [...] of theEncounter. The data comes from all [facility]. Test Date/Time Test Type Test Details Facility Name Nov 13, 2023 09:10 PM Laboratory - Chemi stry Order MRSA SURVL NARES DNA NARES WC [facility] Nov 21, 2023 12:00 AM Laboratory - Chemi stry Order HGA1C BLOOD SP [facility] Nov 21, 2023 12:00 AM Laboratory - Chemi stry Order VITAMIN D, 25-HYDROXY GOLD/RED SST SERUM SP [facility] Lab Results: +/- 30 days of the [...] Nov 14, 2023 05:33 AM [facility] PHOSPHOROUS Specimen Type: PLASMA Comment: No hemolysis noted. Ordering Provider: NAYLA DUNN Report Released Date/Time: Nov 14, 2023 04:23 AM Reporting Lab: [facility] [address] [facility] [address] Performing Lab: [facility] [address] [facility] [address] PHOSPHOROUS 2.9 mg/dL 2.3-4.7 Nov 14, 2023 05:33 AM [facility] MAGNESIUM Specimen Type: PLASMA Comment: No hemolysis noted. Ordering Provider: NAYLA DUNN Report Released Date/Time: Nov 14, 2023 04:23 AM Reporting Lab: [facility] [address] [facility] [address] Performing Lab: [facility] [address] [facility] [address] MAGNESIUM 2.1 mg/dL 1.6-2.6 Nov 14, 2023 05:33 AM [facility] TSH W/ REFLEX FT4 (STL) Specimen Type: PLASMA No comment entered. Ordering Provider: NAYLA DUNN Report Released Date/Time: Nov 14, 2023 04:23 AM Reporting Lab: [facility] [address] [facility] [address] Performing Lab: [facility] [address] [facility] [address] TSH 3.546 u[IU]/mL 0.47-5 Nov 14, 2023 05:33 AM [facility] BASIC METABOLIC PANEL Specimen Type: PLASMA Comment: No hemolysis noted. Ordering Provider: NAYLA DUNN Report Released Date/Time: Nov 14, 2023 04:23 AM Reporting Lab: [place] [place] [address] [address] Performing Lab: [address] [address] CREATININE 0.78 mg/dL 0.7-1.3 UREA NITROGEN 12.0 mg/dL 9.0-25.0 GLUCOSE 83 mg/dL 72-99 SODIUM 136 meq/L 136-145 POTASSIUM 4.4 meq/L 3.5-5 CHLORIDE 103 meq/L 98-107 CARBON DIOXIDE 26 meq/L 22-31 CALCIUM 8.8 mg/dL 8.4-10.4 EGFR (CKD-EPI 2020) 86.3 >60 Nov 14, 2023 05:33 AM [facility] CBC Specimen Type: BLOOD Comment: Manual diff performed on 11/13/23 Ordering Provider: NAYLA DUNN Report Released Date/Time: Nov 14, 2023 04:23 AM Reporting Lab: [address] [address] Performing Lab: [address] [address] WBC 12.8 10*3/uL H 3.6-11.2 RBC 3.87 [...] Nov 14, 2023 01:30 AM [facility] TROPONIN I Specimen Type: PLASMA No comment entered. Ordering Provider: NAYLA DUNN Report Released Date/Time: Nov 14, 2023 01:10 AM Reporting Lab: [facility] [address] [facility] [address] Performing Lab: [facility] [address] [place] [phone] TROPONIN I 0.044 ng/mL H 0-0.033 Nov 13, 2023 10:00 PM [facility] MRSA SURVL NARES DNA Specimen Type: NARES [...] 2023 09:10 PM Reporting Lab: [facility] [address] [place] [address] Performing Lab: [address] [address] MRSA SURVL NARES DNA Negative Negative Nov 13, 2023 07:10 PM [facility] TROPONIN I Specimen Type: PLASMA No comment entered. Ordering Provider: CYRUS EVANS Report Released Date/Time: Nov 13, 2023 06:56 PM Reporting Lab: [facility] [address] [place] [address] Performing Lab: [address] [address] TROPONIN I 0.045 ng/mL H 0-0.033 Nov 13, 2023 06:20 PM [facility] BLOOD GAS PANEL ABG (STL) Specimen Type: VENOUS BLOOD Comment: Test Performed by: [id number] Meter #: [id number] Ordering Provider: CYRUS EVANS Report Released Date/Time: Nov 13, 2023 06:20 PM Reporting Lab: [facility] [address] [place] [phone] Performing Lab: [address] [address] GEM PH 7.38 7.31-7.41 GEM PCO2 52 [...] Nov 13, 2023 06:15 PM [facility] COVID-19 DIAGNOSTIC (FLU/RSV)([facility]) Specimen [...] Nov 13, 2023 03:21 PM Reporting Lab: [address] [address] Performing Lab: [facility] [address] [facility] [address] INFLUENZA A Negative Negative INFLUENZA B Negative Negative COVID-19 (L-PB) Not Detected Not Detected RSV (Cepheid) NEGATIVE Negative Nov 13, 2023 06:00 PM [facility] PT/INR NEW (L-MA) Specimen Type: PLASMA No comment entered. Ordering Provider: CYRUS EVANS Report Released Date/Time: Nov 13, 2023 03:21 PM Reporting Lab: [facility] [address] [facility] [address] Performing Lab: [facility] [address] [place] [phone] PROTIME 12.7 s H 9.4-12.5 INR VALUE 1.1 {INR} Nov 13, 2023 06:00 PM [facility] APTT Specimen Type: PLASMA No comment entered. Ordering Provider: CYRUS EVANS Report Released Date/Time: Nov 13, 2023 03:21 PM Reporting Lab: [facility] [address] [facility] [address] Performing Lab: [facility] [address] [place] [phone] APTT 33.7 s 26.7-39.9 Nov 13, 2023 04:59 PM [facility] URINALYSIS W/ CX REFLEX (L-PB) Specimen Type: URINE No comment entered. Ordering Provider: CYRUS EVANS Report Released Date/Time: Nov 13, 2023 03:12 PM Reporting Lab: [facility] [address] [facility] [address] Performing Lab: [facility] [address] [place] [phone] URINE COLOR Yellow Yellow U.BILIRUBIN Negative mg/dL [...] 02:20 PM [facility] TROPONIN I Specimen Type: PLASMA Comment: No hemolysis noted. Ordering Provider: CYRUS EVANS Report Released Date/Time: Nov 13, 2023 02:14 PM Reporting Lab: [address] Performing Lab: [address] [address] TROPONIN I 0.044 ng/mL H 0-0.033 Nov 13, 2023 02:20 PM [facility] CBC Specimen Type: BLOOD No comment entered. Ordering Provider: CYRUS EVANS Report Released Date/Time: Nov 13, 2023 02:14 PM Reporting Lab: [address] [address] Performing Lab: [address] [address] WBC 12.5 10*3/uL H 3.6-11.2 RBC 4.21 [...] 02:20 PM [facility] COMPREHENSIVE METABOLIC PANEL Specimen Type: PLASMA Comment: No hemolysis noted. Ordering Provider: CYRUS EVANS Report Released Date/Time: Nov 13, 2023 02:14 PM Reporting Lab: [facility] [address] [facility] [address] Performing Lab: [place] [id number] [facility] [address] CREATININE 1.17 mg/dL 0.7-1.3 UREA NITROGEN 12.7 [...] Source Nov 14, 2023 09:15 AM 0 [facility] Nov 14, 2023 08:10 AM 98.4 70 119/62 18 95 [facility] Nov 14, 2023 06:10 AM 97 66 121/70 18 96 0 [facility] Nov 14, 2023 12:51 AM 0 [facility] Social History: Smoking Status (Most current) and Tobacco Use (All prior to encounter date) This section includes the most current, and the historical, smoking and tobacco- related health factors from the [place] facility where the Encounter took place. Current Smoking Status This section includes the most current smoking, or tobacco-related health factor, from the [place] facility where the Encounter took place. Date/Time Current Smoking Status Comment Dena ity Nov 14, 2023 01:18 AM ORYX ADMIT TOBACCO SCREEN NO [facility] Tobacco Use History This section includes a history of the smoking, or tobacco-related health factors, that were collected on or before the date of the Encounter. The data comes from the [place] facility where the Encounter took place. Date/Time Smoking Status/Tobacco Use Comment F acility Aug 04, 2022 11:30 AM VA-TOBACCO NEVER USED [facility] Mar 11, 2021 10:30 AM VA-TOBACCO FORMER USER [facility] Mar 11, 2021 10:30 AM VA-TOBACCO QUIT 15 YRS OR MORE [facility] Apr 19, 2018 09:07 AM VA-TOBACCO FORMER USER [facility] Apr 19, 2018 09:07 AM VA-TOBACCO QUIT 15 YRS OR MORE [facility] Jul 24, 2017 08:16 AM QUIT TOBACCO >7 YEARS AGO [facility] Apr 16, 2017 12:43 PM QUIT TOBACCO >7 YEARS AGO [facility] Feb 01, 2017 11:47 AM LIFETIME NON-USER OF TOBACCO [facility] Nov 15, 2016 09:00 AM QUIT TOBACCO >7 YEARS AGO [facility] September 11, 2016 06:27 PM QUIT TOBACCO >7 YEARS AGO [facility] Dec 09, 2015 10:17 AM QUIT TOBACCO >7 YEARS AGO [facility] Jan 05, 2015 08:22 AM CURRENT TOBACCO USER [facility] Jan 05, 2015 08:22 AM TOBACCO MEDS OFFER ED BUT DECLINED [facility] Mar 18, 2014 10:40 AM CURRENT TOBACCO USER [facility] Mar 18, 2014 10:40 AM TOBACCO MEDS OFFER ED BUT DECLINED [facility] Nov 04, 2013 09:40 AM CURRENT TOBACCO USER [facility] Nov 26, 2012 08:10 AM QUIT TOBACCO >7 YEARS AGO [facility] May 03, 2009 08:45 AM QUIT TOBACCO >7 YEARS AGO [facility] Jul 06, 2008 08:46 AM CURRENT TOBACCO USER [facility] Jul 25, 2007 12:30 PM QUIT TOBACCO >12 M O & <7 YRS AGO [facility] Jun 07, 2006 09:21 AM CURRENT TOBACCO USER [facility] Jun 07, 2006 09:21 AM [facility] Aug 25, 2005 11:01 AM CURRENT TOBACCO USER [facility] Aug 25, 2005 11:01 AM TOBACCO CONTEMPLATION STAGE [facility] Oct 25, 2004 10:18 AM CURRENT NON-TOBACC O USER-HX OF USE [facility] Oct 25, 2004 10:18 AM TOBACCO TERMINATION STAGE [facility] Aug 24, 2003 10:43 AM CURRENT NON-TOBACC O USER-HX OF USE [facility] Aug 24, 2003 10:43 AM TOBACCO TERMINATION STAGE [facility] Aug 05, 2002 09:55 AM CURRENT NON-TOBACC O USER-HX OF USE QUIT [facility] Apr 15, 2001 08:28 AM CURRENT NON-TOBACC O USER-HX OF USE quit in 1979 [facility] Advance Directives: All historical and current Section Date Range: From patient's date of to the date document was created. This section includes ALL of a patient's completed or amended [place] Advance and Rescinded Directives. The entries below indicate that a directive exists for the patient, but an actual copy is not included with this document. The data comes from all [place] facilities. Date Advance Directives Provider Source Oct 19, 2023 ADVANCE DIRECTIVE WANG MURILLO [facility] Dec 12, 2022 RESCINDED ADVANCE DIRECTIVE JITENDRA MEADOWS [facility] September 12, 2016 ADVANCE DIRECTIVE DISCUSSION YVETTE MEADOWS [facility] Radiology Reports: +/- 30 days [...] the Encounter. The data comes from all [place] treatment facilities. Date/Time Radiology Report Provider Source Nov 23, 2023 09:03 AM NM MYOCARDIAL P SPECT STRESS/REST-P: JESUS ABRAHAM [id number] -1935 M Exm Date: NOV 23, 2023@09:03 Req Phys: MEAGHAN QUINTEROS Loc: -PC TM-C SAME DAY CLINIC (Re Img Loc: -NUCLEAR MEDICINE Service: Unknown [facility] [address] [place] [address] (Case [id number] COMPLETE) NM MYOCARDIAL PERF SPECT STRESS/R(NM Detailed) CPT:06973 Reason for Study: CHEST PAIN, ASSESS SUSPECTED [...] 23, 2023 Date Verified: NOV 23, 2023 Cut Roll Machine Offbearer E-Sig:/ES/AGUSTO LIPSCOMB Report: PATIENT NAME: JESUS ABRAHAM CASE #: [id number], [id number], [id number], [id number] EXAMINATION: Rest/Lexiscan Stress Gated SPECT Myocardial Imaging [...] code: 1000. Dictated by Rik Dorantes MD (Horticultural Nursery Assistant), Rodney Smith MD (Horticultural Nursery Assistant) IAgusto, have reviewed the images and report and concur with these findings. Primary Interpreting Staff: AGUSTO LIPSCOMB, RADIOLOGIST (Cut Roll Machine Offbearer) Primary Interpreting Resident: RIK DORANTES MD, RABBLER /AGUSTO SEN [facility] Nov 13, 2023 04:[address] HEAD W/O CONT: JESUS ABRAHAM [id number] -1935 M Exm Date: NOV 13, 2023@16:07 Req Phys: CYRUS EVANS Loc: HAL-EMERGENCY DEPT 2ND SHIFT (R Img Loc: HAL-CT IMAGING [facility] Service: Unknown [facility], [facility] [address] [place] [address] (Case [id number] COMPLETE) CT HEAD W/O CONT (CT Detailed) CPT:12541 Reason for Study: confusion Clinical History: Responsible Attending: cyrus evans Attending Contact Number: [phone] Resident Contact Number: Allergies listed in CPRS chart: Patient has answered NKA Creatinine: CREATININE 1.17 mg/dL 11/13/2023 14:20 /eGFR: STL EGFR (within one year). CREATININE 1.17 mg/dL (11/13/23 14:20) Wt: 189.3 lb [85.87 kg] (10/18/2023 10:32) History of: Renal failure, chronic or acute renal disease: NO Report Status: Verified Date Reported: NOV 13, 2023 Date Verified: NOV 13, 2023 Cut Roll Machine Offbearer E-Sig: Report: CT HEAD W/O CONT HISTORY: confusion COMPARISON: CT head 06/11/2019 TECHNIQUE: Contiguous axial CT images from the level of the skull base through the skull apex, performed at the local [place] facility. 269 images were received by the [place] National Teleradiology Program (NTP) for interpretation. RADIATION [...] clinical concern, consider MRI. READING PHYSICIAN: Anjum [id number] 11/13/2023 15:14 PDT [facility] National Teleradiology Program [phone] (For Medical Practitioner Use Only) Attention Patients / Veterans: If you have questions or concerns about these test results, please contact your ordering provider or primary care team. Primary Interpreting Staff: RADIOLOGY,OUTSIDE SERVICE, Staff Physician / RADIOLOGY,OUTSIDE SERVICE [facility] Nov 13, 2023 03:59 PM CHEST X-RAY, 2 VIEWS: JESUS ABRAHAM [id number] -1935 M Exm Date: NOV 13, 2023@15:59 Req Phys: CYRUS EVANS Pat Loc: -EMERGENCY DEPT 2ND SHIFT (R Img Loc: -MAIN RADIOLOGY SUITE Service: [facility], [facility] [address] [place] [address] (Case [id number] COMPLETE) CHEST X-RAY, 2 VIEWS (RAD Detailed) CPT:46265 Reason for Study: chest pain Clinical History: Report Status: Verified Date Reported: NOV 13, 2023 Date Verified: NOV 13, 2023 Cut Roll Machine Offbearer E-Sig:/ES/AGUSTO LIPSCOMB Report: INDICATION: chest pain COMPARISON: None TECHNIQUE: Chest 2 views Impression: No large pleural effusion or sizable pneumothorax. No new focal consolidation. Unchanged cardiomediastinal silhouette. Primary Interpreting Staff: AGUSTO LIPSCOMB, RADIOLOGIST (Cut Roll Machine Offbearer) /AGUSTO [place] [facility] Pathology Reports: +/- 30 days of [...] the Encounter. The data comes from all [place] treatment facilities. Date/Time Pathology Report Provider Source Nov 13, 2023 06:10 PM LR MICROBIOLOGY RE PORT: Accession [UID]: [id number] [[id number]] Received: Nov 13, 2023@18:22 Collection sample: B [...] --=--=--=--=--=--=-- Performing Laboratory: Bacteriology Report Performed By: [facility] [address] [place] [address]# [id number] [address] [facility] [address] [place] [address] [facility] Nov 13, 2023 06:05 PM LR MICROBIOLOGY RE PORT: Accession [UID]: [id number] [[id number]] Received: Nov 13, 2023@18:23 Collection sample: B [...] Bacteriology Report Performed By: HANNY BAEZ [address] [facility] CLIA# [id number] [address] [facility] [address] [place] [address] [facility]
--- OUTSIDE RECORDS SUMMARY | 2024-05-17 21:53 | XMS_ITS ---
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 Date/Time Encounter Type Encounter Description Reason Pro vider Source Nov 13, 2023 11:42 PM Inpatient Visit DAILY HOSPITALIZATION DATA HERNANDO CASTRO Encounter Template Text not used by [place] Plan of Treatment: Future Appointments (+ 6 [...] appointments. The data comes from all [facility]. Appointment Date/Time Appointment Type Appointme nt Facility Name Nov 23, 2023 09:00 AM AMBULATORY - MEDICINE [facility] Nov 23, 2023 10:00 AM AMBULATORY - MEDICINE [facility] Nov 23, 2023 11:30 AM AMBULATORY - MEDICINE [facility] Dec 24, 2023 02:45 PM AMBULATORY - SURGERY [facility] Jan 01, 2024 02:00 PM AMBULATORY - REHAB MEDICIN E [facility] Feb 29, 2024 01:30 PM AMBULATORY - MEDICINE [facility] Mar 03, 2024 09:15 AM AMBULATORY - MEDICINE [facility] Mar 08, 2024 01:30 PM AMBULATORY - MEDICINE [facility] Mar 10, 2024 12:45 PM AMBULATORY - SURGERY [facility] Apr 16, 2024 11:00 AM AMBULATORY - REHAB MEDICIN E [facility] May 15, 2024 11:00 AM AMBULATORY - SURGERY [facility] Active, Pending, and Scheduled Orders This section includes a listing of several types of active, pending, and scheduled orders, including clinic medications orders, diagnostic test orders, procedure orders and consult orders; where the start date of the order is 45 days before the date of the Encounter or 45 days after the date of theEncounter. The data comes from all [facility]. Test Date/Time Test Type Test Details Facility Name Nov 13, 2023 09:10 PM Laboratory - Chemi stry Order MRSA SURVL NARES DNA NARES WC [facility] Nov 21, 2023 12:00 AM Laboratory - Chemi stry Order HGA1C BLOOD SP [facility] Nov 21, 2023 12:00 AM Laboratory - Chemi stry Order VITAMIN D, 25-HYDROXY GOLD/RED SST SERUM SP [facility] Lab Results: +/- 30 days [...] Range Comment Nov 14, 2023 05:33 AM [facility] PHOSPHOROUS Specimen Type: PLASMA Comment: No hemolysis noted. Ordering Provider: NAYLA DUNN Report Released Date/Time: Nov 14, 2023 04:23 AM Reporting Lab: [facility] [address] [facility] [address] Performing Lab: [facility] [address] [facility] [address] PHOSPHOROUS 2.9 mg/dL 2.3-4.7 Nov 14, 2023 05:33 AM [facility] TSH W/ REFLEX FT4 (STL) Specimen Type: PLASMA No comment entered. Ordering Provider: NAYLA DUNN Report Released Date/Time: Nov 14, 2023 04:23 AM Reporting Lab: [facility] [address] [facility] [address] Performing Lab: [facility] [address] [facility] [address] TSH 3.546 u[IU]/mL 0.47-5 Nov 14, 2023 05:33 AM [facility] MAGNESIUM Specimen Type: PLASMA Comment: No hemolysis noted. Ordering Provider: NAYLA DUNN Report Released Date/Time: Nov 14, 2023 04:23 AM Reporting Lab: [facility] [address] [facility] [address] Performing Lab: [facility] [address] [facility] [address] MAGNESIUM 2.1 mg/dL 1.6-2.6 Nov 14, 2023 05:33 AM [facility] BASIC METABOLIC PANEL Specimen Type: PLASMA Comment: No hemolysis noted. Ordering Provider: NAYLA DUNN Report Released Date/Time: Nov 14, 2023 04:23 AM Reporting Lab: [facility] [address] Performing Lab: [address] [address] CREATININE 0.78 mg/dL 0.7-1.3 UREA NITROGEN 12.0 mg/dL 9.0-25.0 GLUCOSE 83 mg/dL 72-99 SODIUM 136 meq/L 136-145 POTASSIUM 4.4 meq/L 3.5-5 CHLORIDE 103 meq/L 98-107 CARBON DIOXIDE 26 meq/L 22-31 CALCIUM 8.8 mg/dL 8.4-10.4 EGFR (CKD-EPI 2020) 86.3 >60 Nov 14, 2023 05:33 AM [facility] CBC Specimen Type: BLOOD Comment: Manual diff performed on 11/13/23 Ordering Provider: NAYLA DUNN Report Released Date/Time: Nov 14, 2023 04:23 AM Reporting Lab: [address] [address] Performing Lab: [address] [address] WBC 12.8 10*3/uL H 3.6-11.2 RBC 3.87 [...] 10*3/uL 0.00-0.20 Nov 14, 2023 01:30 AM [facility] TROPONIN I Specimen Type: PLASMA No comment entered. Ordering Provider: NAYLA DUNN Report Released Date/Time: Nov 14, 2023 01:10 AM Reporting Lab: [facility] [address] [facility] [address] Performing Lab: [facility] [address] [place] [address] TROPONIN I 0.044 ng/mL H 0-0.033 Nov 13, 2023 10:00 PM [facility] MRSA SURVL NARES DNA Specimen [...] Nov 13, 2023 09:10 PM Reporting Lab: [facility] [address] [place] [phone] Performing Lab: [address] [address] MRSA SURVL NARES DNA Negative Negative Nov 13, 2023 07:10 PM [facility] TROPONIN I Specimen Type: PLASMA No comment entered. Ordering Provider: CYRUS EVANS Report Released Date/Time: Nov 13, 2023 06:56 PM Reporting Lab: [facility] [address] [place] [address] Performing Lab: [address] [address] TROPONIN I 0.045 ng/mL H 0-0.033 Nov 13, 2023 06:20 PM [facility] BLOOD GAS PANEL ABG (STL) Specimen Type: VENOUS BLOOD Comment: Test Performed by: [id number] Meter #: [id number] Ordering Provider: CYRUS EVANS Report Released Date/Time: Nov 13, 2023 06:20 PM Reporting Lab: [facility] [address] [place] [address] Performing Lab: [address] [address] GEM PH 7.38 7.31-7.41 GEM PCO2 52 [...] TEMP 37.0 Nov 13, 2023 06:15 PM [facility] COVID-19 DIAGNOSTIC (FLU/RSV)([facility]) Specimen Type: NASOPHARYNX Comment: Qualitative real-time [...] Nov 13, 2023 03:21 PM Reporting Lab: [address] [address] Performing Lab: [facility] [address] [facility] [address] INFLUENZA A Negative Negative INFLUENZA B Negative Negative COVID-19 (L-PB) Not Detected Not Detected RSV (Cepheid) NEGATIVE Negative Nov 13, 2023 06:00 PM [facility] APTT Specimen Type: PLASMA No comment entered. Ordering Provider: CYRUS EVANS Report Released Date/Time: Nov 13, 2023 03:21 PM Reporting Lab: [place] [address] [facility] [address] Performing Lab: [place] [address] [facility] [address] APTT 33.7 s 26.7-39.9 Nov 13, 2023 06:00 PM [facility] PT/INR NEW ([facility]) Specimen Type: PLASMA No comment entered. Ordering Provider: CYRUS EVANS Report Released Date/Time: Nov 13, 2023 03:21 PM Reporting Lab: [place] [address] [facility] [address] Performing Lab: [place] [address] [facility] [address] PROTIME 12.7 s H 9.4-12.5 INR VALUE 1.1 {INR} Nov 13, 2023 04:59 PM [facility] URINALYSIS W/ CX REFLEX ([facility]) Specimen Type: URINE No comment entered. Ordering Provider: CYRUS EVANS Report Released Date/Time: Nov 13, 2023 03:12 PM Reporting Lab: [place] [address] [facility] [address] Performing Lab: [address] [address] URINE COLOR Yellow Yellow U.BILIRUBIN Negative mg/dL [...] 1.005-1.02 9 Nov 13, 2023 02:20 PM [facility] TROPONIN I Specimen Type: PLASMA Comment: No hemolysis noted. Ordering Provider: CYRUS EVANS Report Released Date/Time: Nov 13, 2023 02:14 PM Reporting Lab: [address] [address] Performing Lab: [address] [address] TROPONIN I 0.044 ng/mL H 0-0.033 Nov 13, 2023 02:20 PM [facility] COMPREHENSIVE METABOLIC PANEL Specimen Type: PLASMA Comment: No hemolysis noted. Ordering Provider: CYRUS EVANS Report Released Date/Time: Nov 13, 2023 02:14 PM Reporting Lab: [address] [address] Performing Lab: [address] [address] CREATININE 1.17 mg/dL 0.7-1.3 UREA NITROGEN 12.7 [...] Reporting Lab: [facility] [address] [address] Performing Lab: [facility] [address] [facility] [address] WBC 12.5 10*3/uL H 3.6-11.2 RBC 4.21 [...] Source Nov 13, 2023 11:20 PM 0 [facility] Nov 13, 2023 10:29 PM 3 [facility] Nov 13, 2023 09:10 PM 97 68 172/77 18 97 0 188.4 25 [facility] Nov 13, 2023 08:02 PM 71 164/84 18 [facility] Nov 13, 2023 02:07 PM 98.7 77 122/69 14 97 [facility] Social History: Smoking Status (Most current) and Tobacco Use (All prior to encounter date) This section includes the most current, and the historical, smoking and tobacco- related health factors from the [place] facility where the Encounter took place. Current Smoking Status This section includes the most current smoking, or tobacco-related health factor, from the [place] facility where the Encounter took place. Date/Time Current Smoking Status Comment Dena ity Aug 04, 2022 11:30 AM VA-TOBACCO NEVER USED [facility] Tobacco Use History This section includes a history of the smoking, or tobacco-related health factors, that were collected on or before the date of the Encounter. The data comes from the [place] facility where the Encounter took place. Date/Time Smoking Status/Tobacco Use Comment F acility Mar 11, 2021 10:30 AM VA-TOBACCO FORMER USER [facility] Mar 11, 2021 10:30 AM VA-TOBACCO QUIT 15 YRS OR MORE [facility] Apr 19, 2018 09:07 AM VA-TOBACCO FORMER USER [facility] Apr 19, 2018 09:07 AM VA-TOBACCO QUIT 15 YRS OR MORE [facility] Jul 24, 2017 08:16 AM QUIT TOBACCO >7 YEARS AGO [facility] Apr 16, 2017 12:43 PM QUIT TOBACCO >7 YEARS AGO [facility] Feb 01, 2017 11:47 AM LIFETIME NON-USER OF TOBACCO [facility] Nov 15, 2016 09:00 AM QUIT TOBACCO >7 YEARS AGO [facility] September 11, 2016 06:27 PM QUIT TOBACCO >7 YEARS AGO [facility] Dec 09, 2015 10:17 AM QUIT TOBACCO >7 YEARS AGO [facility] Jan 05, 2015 08:22 AM CURRENT TOBACCO USER [facility] Jan 05, 2015 08:22 AM TOBACCO MEDS OFFER ED BUT DECLINED [facility] Mar 18, 2014 10:40 AM CURRENT TOBACCO USER [facility] Mar 18, 2014 10:40 AM TOBACCO MEDS OFFER ED BUT DECLINED [facility] Nov 04, 2013 09:40 AM CURRENT TOBACCO USER [facility] Nov 26, 2012 08:10 AM QUIT TOBACCO >7 YEARS AGO [facility] May 03, 2009 08:45 AM QUIT TOBACCO >7 YEARS AGO [facility] Jul 06, 2008 08:46 AM CURRENT TOBACCO USER [facility] Jul 25, 2007 12:30 PM QUIT TOBACCO >12 M O & <7 YRS AGO [facility] Jun 07, 2006 09:21 AM CURRENT TOBACCO USER [facility] Jun 07, 2006 09:21 [facility] Aug 25, 2005 11:01 AM CURRENT TOBACCO USER [facility] Aug 25, 2005 11:01 AM TOBACCO CONTEMPLATION STAGE [facility] Oct 25, 2004 10:18 AM CURRENT NON-TOBACC O USER-HX OF USE [facility] Oct 25, 2004 10:18 AM TOBACCO TERMINATION STAGE [facility] Aug 24, 2003 10:43 AM CURRENT NON-TOBACC O USER-HX OF USE [facility] Aug 24, 2003 10:43 AM TOBACCO TERMINATION STAGE [facility] Aug 05, 2002 09:55 AM CURRENT NON-TOBACC O USER-HX OF USE QUIT [facility] Apr 15, 2001 08:28 AM CURRENT NON-TOBACC O USER-HX OF USE quit in 1979 [facility] Advance Directives: All historical and current Section Date Range: From patient's date of to the date document was created. This section includes ALL of a patient's completed or amended [place] Advance and Rescinded Directives. The entries below indicate that a directive exists for the patient, but an actual copy is not included with this document. The data comes from all [place] facilities. Date Advance Directives Provider Source Oct 19, 2023 ADVANCE DIRECTIVE WANG MURILLOE [facility] Dec 12, 2022 RESCINDED ADVANCE DIRECTIVE JITENDRA MEADOWS [facility] September 12, 2016 ADVANCE DIRECTIVE DISCUSSION YVETTE MEADOWS [facility] Radiology Reports: +/- 30 days of [...] the Encounter. The data comes from all [place] treatment facilities. Date/Time Radiology Report Provider Source Nov 23, 2023 09:03 AM NM MYOCARDIAL P SPECT STRESS/REST-P: JESUS ABRAHAM [id number] -1935 M Exm Date: NOV 23, 2023@09:03 Req Phys: MEAGHAN QUINTEROS Loc: -PC TM-C [facility] (Re Img Loc: -NUCLEAR MEDICINE Service: [address] [address] (Case [id number] COMPLETE) NM MYOCARDIAL PERF SPECT STRESS/R(NM Detailed) CPT:14746 Reason for Study: CHEST PAIN, ASSESS SUSPECTED [...] 23, 2023 Date Verified: NOV 23, 2023 Victim Advocate E-Sig:/ES/AGUSTO LIPSCOMB Report: PATIENT NAME: JESUS ABRAHAM CASE #: [id number], [id number], [id number], [id number], [id number] EXAMINATION: Rest/Lexiscan Stress Gated SPECT Myocardial Imaging [...] code: 1000. Dictated by Rik Dorantes MD (Supervisor [employer]), Rodney Smith MD (Supervisor [employer]) IAgusto, have reviewed the images and report and concur with these findings. Primary Interpreting Staff: AGUSTO LIPSCOMB, RADIOLOGIST (Victim Advocate) Primary Interpreting Resident: RIK DORANTES MD, SUPERVISOR METAL [employer]RICATING /AGUSTO SEN [facility] Nov 13, 2023 04:[address] HEAD W/O CONT: JESUS ABRAHAM [id number] -1935 M Exm Date: NOV 13, 2023@16:07 Req Phys: CYRUS EVANS Pat Loc: [facility]-EMERGENCY DEPT 2ND SHIFT (R Img Loc: [facility]-CT IMAGING [facility] Service: Unknown [facility], [facility] [address] [place] [address] (Case [id number] COMPLETE) CT HEAD W/O CONT (CT Detailed) CPT:24684 Reason for Study: confusion Clinical History: Responsible Attending: cyrus evans Attending Contact Number: [phone] Resident Contact Number: Allergies listed in CPRS chart: Patient has answered NKA Creatinine: CREATININE 1.17 mg/dL 11/13/2023 14:20 /eGFR: STL EGFR (within one year). CREATININE 1.17 mg/dL (11/13/23 14:20) Wt: 189.3 lb [85.87 kg] (10/18/2023 10:32) History of: Renal failure, chronic or acute renal disease: NO Report Status: Verified Date Reported: NOV 13, 2023 Date Verified: NOV 13, 2023 Victim Advocate E-Sig: Report: CT HEAD W/O CONT HISTORY: confusion COMPARISON: CT head 06/11/2019 TECHNIQUE: Contiguous axial CT images from the level of the skull base through the skull apex, performed at the local [place] facility. 269 images were received by the [place] National Teleradiology Program (NTP) for interpretation. RADIATION [...] clinical concern, consider MRI. READING PHYSICIAN: Anjum [id number] 11/13/2023 15:14 PDT [facility] National Teleradiology Program [phone] (For Medical Practitioner Use Only) Attention Patients / Veterans: If you have questions or concerns about these test results, please contact your ordering provider or primary care team. Primary Interpreting Staff: RADIOLOGY,OUTSIDE SERVICE, Staff Physician / RADIOLOGY,OUTSIDE SERVICE [facility] Nov 13, 2023 03:59 PM CHEST X-RAY, 2 VIEWS: JESUS ABRAHAM [id number] -1935 M Exm Date: NOV 13, 2023@15:59 Req Phys: CYRUS EVANS Pat Loc: -EMERGENCY DEPT 2ND SHIFT (R Img Loc: -MAIN RADIOLOGY SUITE Service: [facility], [facility] [address] [place] [address] (Case [id number] COMPLETE) CHEST X-RAY, 2 VIEWS (RAD Detailed) CPT:78090 Reason for Study: chest pain Clinical History: Report Status: Verified Date Reported: NOV 13, 2023 Date Verified: NOV 13, 2023 Victim Advocate E-Sig:/ES/AGUSTO LIPSCOMB Report: INDICATION: chest pain COMPARISON: None TECHNIQUE: Chest 2 views Impression: No large pleural effusion or sizable pneumothorax. No new focal consolidation. Unchanged cardiomediastinal silhouette. Primary Interpreting Staff: AGUSTO LIPSCOMB, RADIOLOGIST (Victim Advocate) /AGUSTO [place] [facility] Pathology Reports: [...] the Encounter. The data comes from all [place] treatment facilities. Date/Time Pathology Report Provider Source Nov 13, 2023 06:10 PM LR MICROBIOLOGY RE PORT: Accession [UID]: [id number] [[id number]] Received: Nov 13, 2023@18:22 Collection sample: B [...] --=--=--=--=--=--=-- Performing Laboratory: Bacteriology Report [facility] By: [facility] [address] [place] [address]# [id number] 5 [facility] [address] [place] [address] [facility] Nov 13, 2023 06:05 PM LR MICROBIOLOGY RE PORT: Accession [UID]: [id number] [[id number]] Received: Nov 13, 2023@18:23 Collection sample: B D BLD. BOTTLE Collection date: Nov 13, 2023 18:05 Site/Specimen: BLOOD Provider: CYRUS EVANS Test(s) ordered: BLOOD CULT (SET 1)............ completed: Nov 20, 2023 16:20 * BACTERIOLOGY FINAL REPORT => Nov 20, 2023 16:24 TECH CODE: [id number] Bacteriology Remark(s): CULTURE IS NEGATIVE TO DATE, ALL POSITIVES ARE ROUTINELY CALLED. [facility] PW 11/20/23 CULTURE SHOWS NO GROWTH IN 6 DAYS. =--=--=--=--=--=--=--=--=--=- -=--=--=--=--=--=--=--=--=--= --=--=--=--=--=--=-- Performing Laboratory: Bacteriology Report Performed By: [place] HANNY LOMBARDO [address] [facility]# [id number] [address] [facility] [address] [place] [address] [facility]
--- OUTSIDE RECORDS SUMMARY | 2024-05-17 21:53 | XMS_ITS | Encounter Summary ---
Author Name [facility] [place] Organization [facility] [place] Address [address] [place] [address] Care Team Providers Care Linter Tender Name Role Phone MEAGHAN QUINTEROS Primary Care [...] Policy Rooney's Name Patient's Relationship to Policy Rooeny MEDICARE (WNR) MEDICARE (M) PART B Aug 12, 2001 PART B [id number] JESUS ABRAHAM PATIENT MEDICARE (WNR) MEDICARE (M) PART A Aug 12, 2001 PART A [id number] BARRINGTONJESUS BUTT PATIENT Selected Encounter This section includes the information on record at [place] for the Encounter. Date/Time Encounter Type Encounter Description Reason Pro vider Source Oct 19, 2023 09:19 AM Outpatient Encounter PRIMARY CARE/MEDICINE IHE Encounter Template Text not used by [...] 20 appointments. The data comes from all [facility]. Appointment Date/Time Appointment Type Appointme nt Facility Name Nov 13, 2023 02:03 PM AMBULATORY - MEDICINE [facility] Nov 23, 2023 09:00 AM AMBULATORY - MEDICINE [facility] Nov 23, 2023 10:00 AM AMBULATORY - MEDICINE [facility] Nov 23, 2023 11:30 AM AMBULATORY - MEDICINE [facility] Dec 24, 2023 02:45 PM AMBULATORY - SURGERY [facility] Jan 01, 2024 02:00 PM AMBULATORY - REHAB MEDICIN E [facility] Feb 29, 2024 01:30 PM AMBULATORY - MEDICINE [facility] Mar 03, 2024 09:15 AM AMBULATORY - MEDICINE [facility] Mar 08, 2024 01:30 PM AMBULATORY - MEDICINE [facility] Mar 10, 2024 12:45 PM AMBULATORY - SURGERY [facility] Apr 16, 2024 11:00 [facility] Active, Pending, and [...] of theEncounter. The data comes from all [facility]. Test Date/Time Test Type Test Details Facility Name Nov 13, 2023 09:10 PM Laboratory - Chemi stry Order MRSA SURVL NARES DNA NARES WC [facility] Nov 21, 2023 12:00 AM Laboratory - Chemi stry Order HGA1C BLOOD SP [facility] Nov 21, 2023 12:00 AM Laboratory - Chemi stry Order VITAMIN D, 25-HYDROXY GOLD/RED SST SERUM SP [facility] Lab Results: +/- 30 days of the [...] Range Comment Nov 14, 2023 05:33 AM [facility] TSH W/ REFLEX FT4 (STL) Specimen Type: PLASMA No comment entered. Ordering Provider: NAYLA DUNN Report Released Date/Time: Nov 14, 2023 04:23 AM Reporting Lab: [facility] [address] [address] Performing Lab: [facility] [address] [address] TSH 3.546 u[IU]/mL 0.47-5 Nov 14, 2023 05:33 AM [facility] PHOSPHOROUS Specimen Type: PLASMA Comment: No hemolysis noted. Ordering Provider: NAYLA DUNN Report Released Date/Time: Nov 14, 2023 04:23 AM Reporting Lab: [facility] [address] [address] Performing Lab: [facility] [address] [address] PHOSPHOROUS 2.9 mg/dL 2.3-4.7 Nov 14, 2023 05:33 AM [facility] MAGNESIUM Specimen Type: PLASMA Comment: No hemolysis noted. Ordering Provider: NAYLA DUNN Report Released Date/Time: Nov 14, 2023 04:23 AM Reporting Lab: [facility] [address] [address] Performing Lab: [facility] [address] [address] MAGNESIUM 2.1 mg/dL 1.6-2.6 Nov 14, 2023 05:33 AM [facility] BASIC METABOLIC PANEL Specimen Type: PLASMA Comment: No hemolysis noted. Ordering Provider: NAYLA DUNN Report Released Date/Time: Nov 14, 2023 04:23 AM Reporting Lab: [facility] [address] [facility] [address] Performing Lab: [address] [address] CREATININE 0.78 mg/dL 0.7-1.3 UREA NITROGEN 12.0 mg/dL 9.0-25.0 GLUCOSE 83 mg/dL 72-99 SODIUM 136 meq/L 136-145 POTASSIUM 4.4 meq/L 3.5-5 CHLORIDE 103 meq/L 98-107 CARBON DIOXIDE 26 meq/L 22-31 CALCIUM 8.8 mg/dL 8.4-10.4 EGFR (CKD-EPI 2020) 86.3 >60 Nov 14, 2023 05:33 AM [facility] CBC Specimen Type: BLOOD Comment: Manual diff performed on 11/13/23 Ordering Provider: NAYLA DUNN Report Released Date/Time: Nov 14, 2023 04:23 AM Reporting Lab: [address] [address] Performing Lab: [address] [address] WBC 12.8 10*3/uL H 3.6-11.2 RBC 3.87 [...] 10*3/uL 0.00-0.20 Nov 14, 2023 01:30 AM [facility] TROPONIN I Specimen Type: PLASMA No comment entered. Ordering Provider: NAYLA DUNN Report Released Date/Time: Nov 14, 2023 01:10 AM Reporting Lab: [facility] [address] [address] Performing Lab: [facility] [address] [place] [address] TROPONIN I 0.044 ng/mL H 0-0.033 Nov 13, 2023 10:00 PM [facility] MRSA SURVL NARES DNA Specimen Type: NARES [...] Nov 13, 2023 09:10 PM Reporting Lab: [facility] [address] [place] [address] Performing Lab: [address] [address] MRSA SURVL NARES DNA Negative Negative Nov 13, 2023 07:10 PM [facility] TROPONIN I Specimen Type: PLASMA No comment entered. Ordering Provider: CYRUS EVANS Report Released Date/Time: Nov 13, 2023 06:56 PM Reporting Lab: [address] [address] Performing Lab: [address] [address] TROPONIN I 0.045 ng/mL H 0-0.033 Nov 13, 2023 06:20 PM [facility] BLOOD GAS PANEL ABG (STL) Specimen Type: VENOUS BLOOD Comment: Test Performed by: [id number] Meter #: [id number] Ordering Provider: CYRUS EVANS Report Released Date/Time: Nov 13, 2023 06:20 PM Reporting Lab: [address] [address] Performing Lab: [address] [address] GEM PH 7.38 7.31-7.41 GEM PCO2 52 [...] TEMP 37.0 Nov 13, 2023 06:15 PM [facility] COVID-19 DIAGNOSTIC (FLU/RSV)(STL) Specimen Type: NASOPHARYNX Comment: [...] Nov 13, 2023 03:21 PM Reporting Lab: [address] [address] Performing Lab: [place] [id number] [address] INFLUENZA A Negative Negative INFLUENZA B Negative Negative COVID-19 (L-PB) Not Detected Not Detected RSV (Cepheid) NEGATIVE Negative Nov 13, 2023 06:00 PM [facility] PT/INR NEW ([facility]) Specimen Type: PLASMA No comment entered. Ordering Provider: CYRUS EVANS Report Released Date/Time: Nov 13, 2023 03:21 PM Reporting Lab: [address] [address] Performing Lab: [address] [address] PROTIME 12.7 s H 9.4-12.5 INR VALUE 1.1 {INR} Nov 13, 2023 06:00 PM [facility] APTT Specimen Type: PLASMA No comment entered. Ordering Provider: CYRUS EVANS Report Released Date/Time: Nov 13, 2023 03:21 PM Reporting Lab: [place] [address] [address] Performing Lab: [address] [address] APTT 33.7 s 26.7-39.9 Nov 13, 2023 04:59 PM [facility] URINALYSIS W/ CX REFLEX ([facility]) Specimen Type: URINE No comment entered. Ordering Provider: CYRUS EVANS Report Released Date/Time: Nov 13, 2023 03:12 PM Reporting Lab: [address] [address] Performing Lab: [address] [address] URINE COLOR Yellow Yellow U.BILIRUBIN Negative mg/dL [...] 1.005-1.02 9 Nov 13, 2023 02:20 PM [facility] TROPONIN I Specimen Type: PLASMA Comment: No hemolysis noted. Ordering Provider: CYRUS EVANS Report Released Date/Time: Nov 13, 2023 02:14 PM Reporting Lab: [address] [address] Performing Lab: [address] [address] TROPONIN I 0.044 ng/mL H 0-0.033 Nov 13, 2023 02:20 PM [facility] COMPREHENSIVE METABOLIC PANEL Specimen Type: PLASMA Comment: No hemolysis noted. Ordering Provider: CYRUS EVANS Report Released Date/Time: Nov 13, 2023 02:14 PM Reporting Lab: [address] [address] Performing Lab: [address] [address] CREATININE 1.17 mg/dL 0.7-1.3 UREA NITROGEN 12.7 [...] >60 Nov 13, 2023 02:20 PM [facility] CBC Specimen Type: BLOOD No comment entered. Ordering Provider: CYRUS EVANS Report Released Date/Time: Nov 13, 2023 02:14 PM Reporting Lab: [facility] [address] [address] Performing Lab: [facility] [address] [address] WBC 12.5 10*3/uL H 3.6-11.2 RBC 4.21 [...] 2022 11:30 AM VA-TOBACCO NEVER USED [facility] Tobacco Use History This section includes a history of the smoking, or tobacco-related health factors, that were collected on or before the date of the Encounter. The data comes from the [place] facility where the Encounter took place. Date/Time Smoking Status/Tobacco Use Comment F acility Mar 11, 2021 10:30 AM VA-TOBACCO FORMER USER [facility] Mar 11, 2021 10:30 AM VA-TOBACCO QUIT 15 YRS OR MORE [facility] Apr 19, 2018 09:07 AM VA-TOBACCO FORMER USER [facility] Apr 19, 2018 09:07 AM VA-TOBACCO QUIT 15 YRS OR MORE [facility] Jul 24, 2017 08:16 AM QUIT TOBACCO >7 YEARS AGO [facility] Apr 16, 2017 12:43 PM QUIT TOBACCO >7 YEARS AGO [facility] Feb 01, 2017 11:47 AM LIFETIME NON-USER OF TOBACCO [facility] Nov 15, 2016 09:00 AM QUIT TOBACCO >7 YEARS AGO [facility] September 11, 2016 06:27 PM QUIT TOBACCO >7 YEARS AGO [facility] Dec 09, 2015 10:17 AM QUIT TOBACCO >7 YEARS AGO [facility] Jan 05, 2015 08:22 AM CURRENT TOBACCO USER [facility] Jan 05, 2015 08:22 AM TOBACCO MEDS OFFER ED BUT DECLINED [facility] Mar 18, 2014 10:40 AM CURRENT TOBACCO USER [facility] Mar 18, 2014 10:40 AM TOBACCO MEDS OFFER ED BUT DECLINED [facility] Nov 04, 2013 09:40 AM CURRENT TOBACCO USER [facility] Nov 26, 2012 08:10 AM QUIT TOBACCO >7 YEARS AGO [facility] May 03, 2009 08:45 AM QUIT TOBACCO >7 YEARS AGO [facility] Jul 06, 2008 08:46 AM CURRENT TOBACCO USER [facility] Jul 25, 2007 12:30 PM QUIT TOBACCO >12 M O & <7 YRS AGO [facility] Jun 07, 2006 09:21 AM CURRENT TOBACCO USER [facility] Jun 07, 2006 09:21 AM [facility] Aug 25, 2005 11:01 AM CURRENT TOBACCO USER [facility] Aug 25, 2005 11:01 AM TOBACCO CONTEMPLATION STAGE [facility] Oct 25, 2004 10:18 AM CURRENT NON-TOBACC O USER-HX OF USE [facility] Oct 25, 2004 10:18 AM TOBACCO TERMINATION STAGE [facility] Aug 24, 2003 10:43 AM CURRENT NON-TOBACC O USER-HX OF USE [facility] Aug 24, 2003 10:43 AM TOBACCO TERMINATION STAGE [facility] Aug 05, 2002 09:55 AM CURRENT NON-TOBACC O USER-HX OF USE QUIT [facility] Apr 15, 2001 08:28 AM CURRENT NON-TOBACC O USER-HX OF USE quit in 1979 [facility] Advance Directives: All historical and current Section Date Range: From patient's date of to the date document was created. This section includes ALL of a patient's completed or amended [place] Advance and Rescinded Directives. The entries below indicate that a directive exists for the patient, but an actual copy is not included with this document. The data comes from all [facility]. Date Advance Directives Provider Source Oct 19, 2023 ADVANCE DIRECTIVE WANG MURILLO [facility] Dec 12, 2022 RESCINDED ADVANCE DIRECTIVE JITENDRA MEADOWS [facility] September 12, 2016 ADVANCE DIRECTIVE DISCUSSION NIXON MEADOWS [facility] Radiology Reports: +/- 30 days of the [...] 2023 04:[address] HEAD W/O CONT: LECLAIRE,JESUS H [id number] -[id number] M Exm Date: NOV 13, 2023@16:07 Req Phys: CYRUS EVANS Loc: [facility]-EMERGENCY DEPT 2ND SHIFT (R Img Loc: [facility]-CT IMAGING [facility] Service: Unknown [facility], [address] [place] [address] (Case [id number] COMPLETE) CT HEAD W/O CONT (CT Detailed) CPT:33412 Reason for Study: confusion Clinical History: Responsible Attending: cyrus evans Attending Contact Number: [phone] Resident Contact Number: Allergies listed in CPRS chart: Patient has answered NKA Creatinine: CREATININE 1.17 mg/dL 11/13/2023 14:20 /eGFR: STL EGFR (within one year). CREATININE 1.17 mg/dL (11/13/23 14:20) Wt: 189.3 lb [85.87 kg] (10/18/2023 10:32) History of: Renal failure, chronic or acute renal disease: NO Report Status: Verified Date Reported: NOV 13, 2023 Date Verified: NOV 13, 2023 Oracle Programmer Analyst E-Sig: Report: CT HEAD W/O CONT HISTORY: [...] concern, consider MRI. READING PHYSICIAN: Anjum Guevara -[phone] 11/13/2023 15:14 PDT [facility] National Teleradiology Program [phone] (For Medical Practitioner Use Only) Attention Patients / Veterans: If you have questions or concerns about these test results, please contact your ordering provider or primary care team. Primary Interpreting Staff: RADIOLOGY,OUTSIDE SERVICE, Staff Physician / RADIOLOGY,OUTSIDE SERVICE [facility] Nov 13, 2023 03:59 PM CHEST X-RAY, 2 VIEWS: JESUS ABRAHAM [id number] -1935 M Exm Date: NOV 13, 2023@15:59 Req Phys: CYRUS EVANS Loc: -EMERGENCY DEPT 2ND SHIFT (R Img Loc: -MAIN RADIOLOGY SUITE Service: [facility], [facility] [address] [place] [address] (Case [id number] COMPLETE) CHEST X-RAY, 2 VIEWS (RAD Detailed) CPT:57827 Reason for Study: chest pain Clinical History: Report Status: Verified Date Reported: NOV 13, 2023 Date Verified: NOV 13, 2023 Oracle Programmer Analyst E-Sig:/ES/CATHY LIPSCOMB Report: INDICATION: chest pain COMPARISON: None TECHNIQUE: Chest 2 views Impression: No large pleural effusion or sizable pneumothorax. No new focal consolidation. Unchanged cardiomediastinal silhouette. Primary Interpreting Staff: CATHY LIPSCOMB, RADIOLOGIST (Oracle Programmer Analyst) /CATHY [facility] [facility] Pathology Reports: +/- 30 [...] PORT: Accession [UID]: [facility] [id number] [[id number]] Received: Nov 13, 2023@18:22 Collection sample: Ivon [...] --=--=--=--=--=--=-- Performing Laboratory: Bacteriology Report Performed By: [facility] [address] [place], [place] [address]IA# [id number] [address] [place] [phone] [facility] Nov 13, 2023 06:05 PM LR MICROBIOLOGY RE PORT: Accession [UID]: [id number] [[id number]] Received: Nov 13, 2023@18:23 Collection sample: Ivon [...] Report Performed By: [facility] [address] [facility]# [id number] [address] [facility] [address] [place] [address] [facility] Encounter Notes: All associated encounter notes This section contains the clinical notes associated to the Encounter. Date/Time Encounter Note(s) Provider Source Oct 19, 2023 09:19 AM ADVANCE DIRECTIVE: LOCAL TITLE: ADVANCE DIRECTIVE STANDARD TITLE: ADVANCE DIRECTIVE DATE OF NOTE: OCT 19, 2023@09:19 ENTRY DATE: OCT 19, 2023@09:20:04 AUTHOR: WANG MURILLO EXP COSIGNER: URGENCY: STATUS: COMPLETED SW received completed Advance Directive from on 10/19/2023 and has sent document to medical records for scanning into [employer]'s chart. and witnesses signed and dated Advance Directive on 10/11/2023. The designated as his/her Health Care Agent: Cassandra Burns (granddaughter) [address] [place] [id number] The designated as his/her Alternate Health Care Agent: Nixon Oden (Grandson) [address] [address] Please refer to document (sent for scanning into 's electronic medical record); document should be viewable in the near future via [employer] Display. To view the scanned document: 1) You must be logged into [facility] 2) Click on Toolbar 3) Sign on to [employer] /manuel/ Wang Murillo LCSW LCSW WEB CONTENT COORDINATOR Electrical Timing Device Calibrator Signed: 10/19/2023 09:25 WANG MURILLO [facility]
--- OUTSIDE RECORDS SUMMARY | 2024-05-17 21:53 | XMS_ITS | Encounter Summary ---
Author Name [facility] [place] Organization [facility] [place] Address [address] [place] [address] Care Team Providers Care Welder Gun Name Role Phone MEAGHAN QUINTEROS Primary Care [...] PART A Aug 12, 2001 PART A [id number] TOBIDANAYJESUS BUTT PATIENT MEDICARE (WNR) MEDICARE (M) PART B Aug 12, 2001 PART B [id number] [phone] JESUS CASTILLO PATIENT Selected Encounter This section includes the information on record at [place] for the Encounter. Date/Time Encounter Type Encounter Description Reason Provider Source Oct 18, 2023 10:20 AM OFFICE O/P EST LOW 20 MIN PRIMARY CARE/MEDICINE ICD-10-CM L60.2 Onychogryphosis AMBER [facility] Encounter Template Text not used by [place] Assessments - Encounter Diagnoses This section includes the primary and secondary diagnoses documented for the Encounter. Date/Time Primary/Secondary Diagnosis Diagnosis Name Provider Source Nov 07, 2023 11:41 AM PRIMARY Onychogryphosis AMBER [facility] Nov 07, 2023 11:41 AM SECONDARY Essential (primary) hypertension AMBER K[facility] Nov 07, 2023 11:41 AM SECONDARY Type 2 diabetes mellitus without complications AMBER KAIS[facility] Nov 07, 2023 11:41 AM SECONDARY Unspecified macular degeneration AMBER KAIS[facility] Plan of Treatment: Future Appointments (+ 6 months) and Future Tests (+/- 45 days) The Plan of Treatment section includes future care activities for the patient from [facility] This section includes future appointments and future orders which are active, pending or scheduled. Future Appointments This section includes appointments that were scheduled to occur 6 months from the date of the Encounter, up to a maximum of 20 appointments. The data comes from all [facility]. Appointment Date/Time Appointment Type Appointme nt Facility Name Nov 13, 2023 02:03 PM AMBULATORY - MEDICINE [facility] Nov 23, 2023 09:00 AM AMBULATORY - MEDICINE [facility] Nov 23, 2023 10:00 AM AMBULATORY - MEDICINE [facility] Nov 23, 2023 11:30 AM AMBULATORY - MEDICINE [facility] Dec 24, 2023 02:45 PM AMBULATORY - SURGERY [facility] Jan 01, 2024 02:00 PM AMBULATORY - REHAB [facility] Feb 29, 2024 01:30 PM AMBULATORY - MEDICINE [facility] Mar 03, 2024 09:15 AM AMBULATORY - MEDICINE [facility] Mar 08, 2024 01:30 PM AMBULATORY - MEDICINE [facility] Mar 10, 2024 12:45 PM AMBULATORY - SURGERY [facility] Apr 16, 2024 11:00 AM AMBULATORY - REHAB [facility] Active, Pending, and Scheduled Orders This section includes a listing of several types of active, pending, and scheduled orders, including clinic medications orders, diagnostic test orders, procedure orders and consult orders; where the start date of the order is 45 days before the date of the Encounter or 45 days after the date of theEncounter. The data comes from all [place] treatment facilities. Test Date/Time Test Type Test Details Facility Name Nov 13, 2023 09:10 PM Laboratory - Chemi stry Order MRSA SURVL NARES DNA NARES WC [facility] Nov 21, 2023 12:00 AM Laboratory - Chemi stry Order VITAMIN D, 25-HYDROXY GOLD/RED SST SERUM SP [facility] Nov 21, 2023 12:00 AM Laboratory - Chemi stry Order HGA1C BLOOD SP [facility] Lab Results: +/- 30 days of the encounter This section includes the Chemistry and Hematology Lab Results on record with [place] for the patient. Radiology Reports and Pathology [...] 14, 2023 04:23 AM Reporting Lab: [facility] [address] [facility] [address] Performing Lab: [address] [address] TSH 3.546 u[IU]/mL 0.47-5 Nov 14, 2023 05:33 AM [facility] PHOSPHOROUS Specimen Type: PLASMA Comment: No hemolysis noted. Ordering Provider: NAYLA DUNN Report Released Date/Time: Nov 14, 2023 04:23 AM Reporting Lab: [address] [address] Performing Lab: [address] [address] PHOSPHOROUS 2.9 mg/dL 2.3-4.7 Nov 14, 2023 05:33 AM [facility] MAGNESIUM Specimen Type: PLASMA Comment: No hemolysis noted. Ordering Provider: NAYLA DUNN Report Released Date/Time: Nov 14, 2023 04:23 AM Reporting Lab: [facility] [address] [place] [address] Performing Lab: [address] [address] MAGNESIUM 2.1 mg/dL 1.6-2.6 Nov 14, 2023 05:33 AM [facility] BASIC METABOLIC PANEL Specimen Type: PLASMA Comment: No hemolysis noted. Ordering Provider: NAYLA DUNN Report Released Date/Time: Nov 14, 2023 04:23 AM Reporting Lab: [address] [address] Performing Lab: [address] [address] CREATININE 0.78 mg/dL 0.7-1.3 UREA NITROGEN 12.0 [...] Nov 14, 2023 04:23 AM Reporting Lab: [address] [address] Performing Lab: [address] [address] WBC 12.8 10*3/uL H 3.6-11.2 RBC 3.87 [...] Nov 14, 2023 01:10 AM Reporting Lab: [place] [id number] [facility] [address] Performing Lab: [address] [address] TROPONIN I 0.044 ng/mL H 0-0.033 Nov [...] Nov 13, 2023 09:10 PM Reporting Lab: [address] [address] Performing Lab: [address] [address] MRSA SURVL NARES DNA Negative Negative Nov 13, 2023 07:10 PM [facility] TROPONIN I Specimen Type: PLASMA No comment entered. Ordering Provider: CYRUS EVANS Report Released Date/Time: Nov 13, 2023 06:56 PM Reporting Lab: [address] [address] Performing Lab: [address] [address] TROPONIN I 0.045 ng/mL H 0-0.033 Nov 13, 2023 06:20 PM [facility] BLOOD GAS PANEL ABG ([facility]) Specimen Type: VENOUS BLOOD Comment: Test Performed by: [id number] Meter #: [id number] Ordering Provider: CYRUS EVANS Report Released Date/Time: Nov 13, 2023 06:20 PM Reporting Lab: [address] [address] Performing Lab: [address] [address] GEM PH 7.38 7.31-7.41 GEM PCO2 52 [...] PM [facility] COVID-19 DIAGNOSTIC (FLU/RSV)([facility] [...] Nov 13, 2023 03:21 PM Reporting Lab: [address] [address] Performing Lab: [address] [address] INFLUENZA A Negative Negative INFLUENZA B Negative Negative COVID-19 ([facility]) Not Detected Not Detected RSV (Cepheid) NEGATIVE Negative Nov 13, 2023 06:00 PM [facility] PT/INR NEW ([facility]) Specimen Type: PLASMA No comment entered. Ordering Provider: CYRUS EVANS Report Released Date/Time: Nov 13, 2023 03:21 PM Reporting Lab: [facility] [address] [place] [address] Performing Lab: [address] [address] PROTIME 12.7 s H 9.4-12.5 INR VALUE 1.1 {INR} Nov 13, 2023 06:00 PM [facility] APTT Specimen Type: PLASMA No comment entered. Ordering Provider: CYRUS EVANS Report Released Date/Time: Nov 13, 2023 03:21 PM Reporting Lab: [address] [address] Performing Lab: [address] [address] APTT 33.7 s 26.7-39.9 Nov 13, 2023 04:[address] [facility] URINALYSIS W/ CX REFLEX ([facility]) Specimen Type: URINE No comment entered. Ordering Provider: CYRUS EVANS Report Released Date/Time: Nov 13, 2023 03:12 PM Reporting Lab: [facility] [address] [address] Performing Lab: [facility] [address] [address] URINE COLOR Yellow Yellow U.BILIRUBIN Negative mg/dL [...] 13, 2023 02:14 PM Reporting Lab: [facility] [address] [facility] [address] Performing Lab: [facility] [address] [facility] [address] TROPONIN I 0.044 ng/mL H 0-0.033 Nov 13, 2023 02:20 PM [facility] COMPREHENSIVE METABOLIC PANEL Specimen Type: PLASMA Comment: No hemolysis noted. Ordering Provider: CYRUS EVANS Report Released Date/Time: Nov 13, 2023 02:14 PM Reporting Lab: [facility] [address] [address] Performing Lab: [facility] [address] [address] CREATININE 1.17 mg/dL 0.7-1.3 UREA NITROGEN 12.7 [...] 13, 2023 02:14 PM Reporting Lab: [facility] [address] [facility] [address] Performing Lab: [address] [address] WBC 12.5 10*3/uL H 3.6-11.2 RBC 4.21 [...] Pain Height Weight Body Mass Index Source Oct 18, 2023 10:32 AM 98 73 147/77 18 96 3 189.3 25 [facility] Social History: Smoking Status (Most current) and Tobacco Use (All prior to encounter date) This section includes the most current, and the historical, smoking and tobacco- related health factors from the [place] facility where the Encounter took place. Current Smoking Status This section includes the most current smoking, or tobacco-related health factor, from the [place] facility where the Encounter took place. Date/Time Current Smoking Status Comment Dena ity Aug 04, 2022 11:30 AM VA-TOBACCO NEVER USED [facility] Tobacco Use History This section includes a history of the smoking, or tobacco-related health factors, that were collected on or before the date of the Encounter. The data comes from the [place] facility where the Encounter took place. Date/Time [...] HOSPITAL Jun 07, 2006 09:21 [facility] Aug [...] ALL of a patient's completed or amended [place] Advance and Rescinded Directives. The entries below indicate that a directive exists for the patient, but an actual copy is not included with this document. The data comes from all [place] facilities. Date Advance Directives Provider Source Oct 19, 2023 ADVANCE DIRECTIVE WANG MURILLO [facility] Dec 12, 2022 RESCINDED ADVANCE DIRECTIVE JITENDRA MEADOWS [facility] September 12, 2016 ADVANCE DIRECTIVE DISCUSSION YVETTE MEADOWS [facility] Radiology Reports: +/- 30 days [...] the Encounter. The data comes from all [place] treatment facilities. Date/Time Radiology Report Provider Source Nov 13, 2023 04:[address] HEAD W/O CONT: JESUS CASTILLO [id number] -[id number] M Exm Date: NOV 13, 2023@16:07 Req Phys: CYRUS EVANS Loc: [facility]-EMERGENCY DEPT 2ND SHIFT (R Img Loc: [facility]-CT IMAGING Service: [facility], [facility] [address] [place] [address] (Case [id number] COMPLETE) CT HEAD W/O CONT (CT Detailed) CPT:28921 Reason for Study: confusion Clinical History: Responsible Attending: cyrus evans Attending Contact Number: [phone] Resident Contact Number: Allergies listed in CPRS chart: Patient has answered NKA Creatinine: CREATININE 1.17 mg/dL 11/13/2023 14:20 /eGFR: STL EGFR (within one year). CREATININE 1.17 mg/dL (11/13/23 14:20) Wt: 189.3 lb [85.87 kg] (10/18/2023 10:32) History of: Renal failure, chronic or acute renal disease: NO Report Status: Verified Date Reported: NOV 13, 2023 Date Verified: NOV 13, 2023 Seasonal Driver E-Sig: Report: CT HEAD W/O CONT HISTORY: confusion COMPARISON: CT head 06/11/2019 TECHNIQUE: Contiguous axial CT images from the level of the skull base through the skull apex, performed at the local [place] facility. 269 images were received by the [place] National Teleradiology Program (NTP) for interpretation. RADIATION [...] clinical concern, consider MRI. READING PHYSICIAN: Anjum [id number] 11/13/2023 15:14 PDT [facility] National Teleradiology Program [phone] (For Medical Practitioner Use Only) Attention Patients / Veterans: If you have questions or concerns about these test results, please contact your ordering provider or primary care team. Primary Interpreting Staff: RADIOLOGY,OUTSIDE SERVICE, Staff Physician / RADIOLOGY,OUTSIDE SERVICE [facility] Nov 13, 2023 03:59 PM CHEST X-RAY, 2 VIEWS: JESUS CASTILLO [id number] -[id number] M Exm Date: NOV 13, 2023@15:59 Req Phys: CYRUS EVANS Loc: [facility]GENCY DEPT 2ND SHIFT (R Img Loc: [facility]-MAIN RADIOLOGY SUITE Service: [facility], [facility] [address] [place] [address] (Case [id number] COMPLETE) CHEST X-RAY, 2 VIEWS (RAD Detailed) CPT:25809 Reason for Study: chest pain Clinical History: Report Status: Verified Date Reported: NOV 13, 2023 Date Verified: NOV 13, 2023 Seasonal Driver E-Sig:/ES/CATHY LIPSCOMB Report: INDICATION: chest pain COMPARISON: None TECHNIQUE: Chest 2 views Impression: No large pleural effusion or sizable pneumothorax. No new focal consolidation. Unchanged cardiomediastinal silhouette. Primary Interpreting Staff: CATHY LIPSCOMB, RADIOLOGIST ([place]) /CATHY HOOVER [facility] Pathology Reports: +/- 30 [...] the Encounter. The data comes from all [place] treatment facilities. Date/Time Pathology Report Provider Source Nov 13, 2023 06:10 PM LR MICROBIOLOGY RE PORT: Accession [UID]: [id number] [[id number]] Received: Nov 13, 2023@18:22 Collection sample: B [...] --=--=--=--=--=--=-- Performing Laboratory: Bacteriology Report Performed By: [address] CLIA# [id number] [address] [facility] [address] [place] [address] [facility] Nov 13, 2023 06:05 PM LR MICROBIOLOGY RE PORT: Accession [UID]: [id number] [[id number]] Received: Nov 13, 2023@18:23 Collection sample: B [...] --=--=--=--=--=--=-- Performing Laboratory: Bacteriology Report Performed By: [facility] [address] CLIA# [id number] [address] [facility] [address] [place] [address] [facility] Encounter Notes: All associated encounter notes This section contains the clinical notes associated to the Encounter. Date/Time Encounter Note(s) Provider Source Oct 18, 2023 11:42 AM PRIMARY CARE NOTE: LOCAL TITLE: PRIMARY CARE PROVIDER ESTABLISHED VISIT [facility] STANDARD TITLE: PRIMARY CARE NOTE DATE OF NOTE: OCT 18, 2023@11:42 ENTRY DATE: OCT 18, 2023@11:43:04 AUTHOR: KERMIT MCLAUGHLIN COSIGNER: AMBER [facility] URGENCY: STATUS: COMPLETED PRIMARY CARE PROVIDER ESTABLISHED VISIT [facility] Has [facility] W[facility]-IN CLINIC NOTE Pt is a 88 year old MALE with a PMHx of DM, HLD, HTN, CAD, left knee replacement and macular degeneration who presents to walk-in clinic for letter for medical clearance to recieve nail trimming on his feet. On evaluation today, david has good vascular flow and pulses in your feet and lower extremities. He had intact sensation in his feet as well. Patient is medically cleared for nail trimming. MEDICAL HISTORY: 1) Coronary artery disease (SNOMED CT 81897692) 2) Hyperlipidaemia (SNOMED CT 00349554) 3) Allergic rhinitis * (ICD-9-CM 477.9) 4) Carcinoma, Basal Cell 5) Osteoarthritis of knee (SNOMED CT 873483491) 6) Age related macular degeneration (SNOMED CT 304521186) 7) Colonic Polyps 8) Diabetes Mellitus without mention of Complication, type II or unspecified type, 9) Benign essential hypertension (SNOMED CT 8119585) 10) Pain in joint involving shoulder region [...] 780.79) 19) History/Skin/CA 20) Dermatitis (SNOMED CT 242083232) 21) Dry skin (SNOMED CT 05952418) 22) Chest pain 23) Exudative age-related macular degeneration 24) Hyperlipidemia 25) Diabetes mellitus 26) Insomnia 27) Osteoarthritis of knee ACTIVE OUTPATIENT MEDS: Active Outpatient Medications (including Supplies): Active Outpatient [...] CHEW TAB CHEW AND SWALLOW ONE-HALF ACTIVE (S) TABLET BY MOUTH THREE TIMES A DAY [...] MOUTH ONCE A DAY 8 Total Medications REVIEW OF SYSTEMS: Negative except where noted above. Vital Signs: Pulse: 73 (10/18/2023 10:32) BP: 147/77 (10/18/2023 10:32) RESP: 18 (10/18/2023 10:32) Pain: 3 (10/18/2023 10:32) Weight: 189.3 lb [85.87 kg] (10/18/2023 10:32) PHYSICAL EXAM: General: cooperative, well appearing, no acute distress HEENT: atraumatic, symmetric, sclera anicteric, no pharyngeal erythema/exudate Neck: No JVD, no LAD CV: RRR, normal S1/S2, no murmurs Lungs: CTAB, no rales Abd: nontender, nondistended, nml bowel sounds Skin: no rashes or lesions, warm, dry Neuro: A&O x3, follows commands, no focal deficits, CN II-XII grossly in tact Ext: 5/5 strength in all extremities, 2+ pulses, good sensation throughout - toe nailes overgrown and curling - no evedence of ulcers or lesions LAB DATA: SODIUM 135 L mEq/L 05/18/2023 10:09 POTASSIUM 4.1 mEq/L 05/18/2023 10:09 CHLORIDE 101 mEq/L 05/18/2023 10:09 UREA NITROGEN 8.8 L mg/dL 05/18/2023 10:09 CREATININE 0.82 mg/dL 05/18/2023 10:09 CALCIUM 9.4 mg/dL 05/18/2023 10:09 PROTEIN 7.3 g/dL 05/03/2023 12:55 ALBUMIN 4.3 g/dL 05/18/2023 10:09 ALKALINE PHOSPHATASE 69 U/L 05/03/2023 12:55 ALT/SGPT 22 U/L 05/03/2023 12:55 AST/SGOT 22 U/L 05/03/2023 12:55 TOTAL BILIRUBIN 0.5 mg/dL 05/03/2023 12:55 CARBON DIOXIDE 24 mEq/L 05/18/2023 10:09 GLUCOSE 125 H mg/dL 05/18/2023 10:09 EGFR (CKD-EPI 2020) 85.6 05/18/2023 10:09 WBC 9.4 10*3/uL 05/03/2023 12:55 RBC 4.28 10*6/uL 05/03/2023 12:55 HGB 13.0 L g/dL 05/03/2023 12:55 HCT 39.2 % 05/03/2023 12:55 MCV 91.6 fL 05/03/2023 12:55 MCH 30.4 pg 05/03/2023 12:55 MCHC 33.2 g/dL 05/03/2023 12:55 RDW 13.5 % 05/03/2023 12:55 PLT 315 10*3/uL 05/03/2023 12:55 MPV 9.9 fL 05/03/2023 12:55 NEUTROPHILS, AUTO % 59 % 03/01/2022 12:23 [...] BASOPHILS, ABSOLUTE 0.04 10*3/uL 03/01/2022 12:23 NEUTROPHILS 65.2 % 05/03/2023 12:55 LYMPHOCYTES 13.9 % 05/03/2023 12:55 MONOCYTES 12.2 % 05/03/2023 12:55 EOSINOPHILS 4.3 % 05/03/2023 12:55 BASOPHILS 0.9 % 05/03/2023 12:55 ATYPICAL LYMPHOCYTES 3.5 % 05/03/2023 12:55 POIKILOCYTOSIS 1+ 05/03/2023 12:55 IMPRESSION/PLAN: Toe nail trimming - patient provided a letter for medical clearance Patient seen and discussed with Dr. Kaiser. /manuel/ Kermit Mclaughlin M.D. Resident Physician LINDA Signed: 10/18/2023 11:47 /es/ AMBER [facility]ISER MD Cosigned: 11/07/2023 11:41 11/07/2023 ADDENDUM STATUS: RADHA Castillo is a 88 yo presenting with complaint of needing clearance for toenail trimming in his facility which he cannot perform himslef due to vision, arthritis, and flexibility. Patient seen and evaluated along with Dr. Brian Sanchez. See his note for the interval history, which is confirmed with the patient. Medications, and how the patient is taking them are reviewed. Recent diagnostics as well as past medical and procedural histories are reviewed with Dr Sanchez, and with the patient as per the presenting complaint. On my exam, the vital signs are normal. there are no sores or infections of the feet or toes. sensation is slightly diminished bilaterally. peripheral pulses are present bilaterally. capillary refill is good. The patient does not have signs or symptoms of poor glycemic contral. The balance of the exam is per Dr. Sanchez. Agree with the working diagnoses of Onychogryphosis and overgrown toenails with personal inability to trim these himself. He is able to access this foot care in his facility. He is medically cleared for this care. See Dr Gonzales plan for diagnosis and treatment. We spent 20 minutes in the evaluation, diagnosis, and treatment planning for this patient. Follow up with Primary Care Team as scheduled and Same Day Clinic as indicated. Amber Kaiser M.D. /manuel/ AMBER KAISER MD Signed: 11/07/2023 11:47 KERMIT MCLAUGHLIN [facility] Oct 18, 2023 11:21 AM PHYSICIAN LETTERS: LOCAL TITLE: TEST RESULT GENERAL LETTER [facility] STANDARD TITLE: PHYSICIAN LETTERS DATE OF NOTE: OCT 18, 2023@11:21 ENTRY DATE: OCT 18, 2023@11:22:02 AUTHOR: AMBER KAISER EXP COSIGNER: URGENCY: STATUS: COMPLETED [facility] [address] [place] [address] OCT 18, 2023 [address]ESUS CA[address]ILLO [address] [place] [id number] Dear Jesus Castillo, I would like to update you on your recent test results. GLUCOSE - Your blood sugar or glucose level result GLUCOSE GLUCOSE 125 H mg/dL 05/18/2023 10:09 The results are similar to previous values and not a clinical concern. HEMOGLOBIN A1C - Gives us information about your diabetes (sugar or glucose) control over the past 3 months. Your target is to keep your A1C below 6.5%. HGA1C 7.3 H % 05/18/2023 10:09 The results are similar to previous values and not a clinical concern. You do need continued monitoring and possible modification of diet and medication for Diabetes Mellitus in the future. PLAN Please continue your treatment as we discussed during your visit. If you have any questions please call your shoe parts caser. I look forward to seeing you at your next clinic appointment. Thank you for choosing the [facility] for your healthcare. On your evaluation today, you have normal Vital Signs, good vascular flow and pulses in your feet and lower extremities. And you had intact sensation in your feet as an indication of your neural sensation. It is our medical opinion that you are stable and safe for foot care and nail trimming with the Podiatry and Foot Care personnel at your Facility. FUTURE APPOINTMENTS: 11/23/2023 09:00 [facility]-NUCLEAR MED CARDIOLOGY 11/23/2023 10:00 [facility]-CARDIOLOGY STRESS 11/23/2023 11:30 [facility]-PACT C6 PCP 12/24/2023 14:45 [facility]-OPHTH RETINA MON 1 Sincerely yours, Kermit Mclaughlin MD Resident Physician PGY1 [employer] Amber Kaiser MD, Staff Physician Primary Care Service [facility] Sincerely, JESUS ESTRELLA MD, ROBERT M [facility] Oct 18, 2023 10:32 AM NURSING NOTE: LOCAL TITLE: V15 PACT FACE TO FACE NOTE STL STANDARD TITLE: NURSING NOTE DATE OF NOTE: OCT 18, 2023@10:32 ENTRY DATE: OCT 18, 2023@10:33:03 AUTHOR: ERIBERTO BROWN EXP COSIGNER: URGENCY: STATUS: COMPLETED Provider Visit: Patient Identifiers : Full Name Date of Reason for visit: Other: Will like a podiatry consult for community care. He will like to see the dry room operator that come to his facility. The is also having left knee pain Mode of Arrival: Ambulatory Allergy Review: Patient has answered NKA Allergy list reviewed and remains current. Recent Vital Signs: Temperature: 98 F [36.7 C] (10/18/2023 10:32) Pulse: 73 (10/18/2023 10:32) Respiration: 18 (10/18/2023 10:32) B/P: 147/77 (10/18/2023 10:32) Pain: 3 (10/18/2023 10:32) Wt: 189.3 lb [85.87 kg] (10/18/2023 10:32) Ht: 73 in [185.4 cm] (05/18/2023 10:28) BMI: 25.0 POX: 96% (10/18/2023 10:32) Would you like to discuss any personal problem, family problem, alcohol use, drug use, or a mental or emotional illness? No My [facility] ([facility]), please select appointment type: Face to face: No- Are you interested in getting this done? No Contact provided Primary Care phone number and encouraged to call if any questions or concerns. Review that after hours nurse line [phone] and emergency room are available 04/12 for patient use. Contact verbalized good understanding. /manuel/ ERIBERTO BROWN LPN LICENSED PRACTICAL NURSE Signed: 10/18/2023 10:39 ERIBERTO BROWN [facility]
--- OUTSIDE RECORDS SUMMARY | 2024-05-17 21:53 | XMS_ITS ---
Author Name [facility] [facility] [place] Address [address] [place] [address] Care Team Providers Care Toolroom Helper Name Role Phone MEAGHAN QUINTEROS Primary Care [...] PART A Aug 12, 2001 PART A [id number] [phone] [place] PATIENT MEDICARE (WNR) MEDICARE (M) PART B Aug 12, 2001 PART B [id number] [phone] JESUS ABRAHAM PATIENT Selected Encounter This section includes the information on record at [place] for the Encounter. Date/Time Encounter Type Encounter Description Reason Pro vider Source Nov 13, 2023 08:20 AM Outpatient Encounter ADMIN PAT ACTIVTIES (MASNONCT) IHE Encounter Template Text not used by [place] Plan of Treatment: Future Appointments (+ 6 [...] The data comes from all [facility]. Appointment Date/Time Appointment Type Appointme nt Facility Name Nov 23, 2023 09:00 AM AMBULATORY - MEDICINE [facility] Nov 23, 2023 10:00 AM AMBULATORY - MEDICINE [facility] Nov 23, 2023 11:30 AM AMBULATORY - MEDICINE [facility] Dec 24, 2023 02:45 PM AMBULATORY - SURGERY [facility] Jan 01, 2024 02:00 PM AMBULATORY - REHAB MEDICIN E [facility] Feb 29, 2024 01:30 PM AMBULATORY - MEDICINE [facility] Mar 03, 2024 09:15 AM AMBULATORY - MEDICINE [facility] Mar 08, 2024 01:30 PM AMBULATORY - MEDICINE [facility] Mar 10, 2024 12:45 PM AMBULATORY - SURGERY [facility] Apr 16, 2024 11:00 AM AMBULATORY - REHAB MEDICIN E [facility] May 15, 2024 11:00 AM AMBULATORY - SURGERY [facility] Active, Pending, and Scheduled Orders [...] The data comes from all [facility]. Test Date/Time Test Type [...] 14, 2023 04:23 AM Reporting Lab: [facility] [address] [facility] [address] Performing Lab: [facility] [address] [facility] [address] TSH 3.546 u[IU]/mL 0.47-5 Nov 14, 2023 05:33 AM [facility] MAGNESIUM Specimen Type: PLASMA Comment: No hemolysis noted. Ordering Provider: NAYLA DUNN Report Released Date/Time: Nov 14, 2023 04:23 AM Reporting Lab: [facility] [address] [facility] [address] Performing Lab: [facility] [address] [facility] [address] MAGNESIUM 2.1 mg/dL 1.6-2.6 Nov 14, 2023 05:33 AM [facility] PHOSPHOROUS Specimen Type: PLASMA Comment: No hemolysis noted. Ordering Provider: NAYLA DUNN Report Released Date/Time: Nov 14, 2023 04:23 AM Reporting Lab: [facility] [address] [facility] [address] Performing Lab: [facility] [address] [facility] [address] PHOSPHOROUS 2.9 mg/dL 2.3-4.7 Nov 14, 2023 05:33 AM [facility] BASIC METABOLIC PANEL Specimen Type: PLASMA Comment: No hemolysis noted. Ordering Provider: NAYLA DUNN Report Released Date/Time: Nov 14, 2023 04:23 AM Reporting Lab: [address] [address] Performing Lab: [address] [address] CREATININE 0.78 mg/dL 0.7-1.3 UREA NITROGEN 12.0 [...] 14, 2023 04:23 AM Reporting Lab: [address] [address] Performing Lab: [address] [address] WBC 12.8 10*3/uL H 3.6-11.2 RBC 3.87 [...] Nov 14, 2023 01:10 AM Reporting Lab: [facility] [address] [place] [address] Performing Lab: [facility] [address] [place] [address] TROPONIN I 0.044 ng/mL H 0-0.033 Nov [...] Nov 13, 2023 09:10 PM Reporting Lab: [address] [address] Performing Lab: [address] [address] MRSA SURVL NARES DNA Negative Negative Nov 13, 2023 07:10 PM [facility] TROPONIN I Specimen Type: PLASMA No comment entered. Ordering Provider: CYRUS EVANS Report Released Date/Time: Nov 13, 2023 06:56 PM Reporting Lab: [facility] [address] [place] [phone] Performing Lab: [address] [address] TROPONIN I 0.045 ng/mL H 0-0.033 Nov 13, 2023 06:20 PM [facility] BLOOD GAS PANEL ABG ([facility]) Specimen Type: VENOUS BLOOD Comment: Test Performed by: [id number] Meter #: [id number] Ordering Provider: CYRUS EVANS Report Released Date/Time: Nov 13, 2023 06:20 PM Reporting Lab: [facility] [address] [place] [phone] Performing Lab: [address] [address] GEM PH 7.38 7.31-7.41 GEM PCO2 52 [...] 06:15 PM [facility] COVID-19 DIAGNOSTIC (FLU/RSV)([facility]) Specimen Type: NASOPHARYNX Comment: Qualitative real-time [...] 13, 2023 03:21 PM Reporting Lab: [address] [address] Performing Lab: [facility] [address] [facility] [address] INFLUENZA A Negative Negative INFLUENZA B Negative Negative COVID-19 ([facility]-PB) Not Detected Not Detected RSV (Cepheid) NEGATIVE Negative Nov 13, 2023 06:00 PM [facility] PT/INR NEW ([facility]-MA) Specimen Type: PLASMA No comment entered. Ordering Provider: CYRUS EVANS Report Released Date/Time: Nov 13, 2023 03:21 PM Reporting Lab: [facility] [address] [facility] [address] Performing Lab: [facility] [address] [facility] [address] PROTIME 12.7 s H 9.4-12.5 INR VALUE 1.1 {INR} Nov 13, 2023 06:00 PM [facility] APTT Specimen Type: PLASMA No comment entered. Ordering Provider: CYRUS EVANS Report Released Date/Time: Nov 13, 2023 03:21 PM Reporting Lab: [facility] [address] [facility] [address] Performing Lab: [facility] [address] [facility] [address] APTT 33.7 s 26.7-39.9 Nov 13, 2023 04:59 PM [facility] URINALYSIS W/ CX REFLEX (L-PB) Specimen Type: URINE No comment entered. Ordering Provider: CYRUS EVANS Report Released Date/Time: Nov 13, 2023 03:12 PM Reporting Lab: [facility] [address] [facility] [address] Performing Lab: [facility] [address] [facility] [address] URINE COLOR Yellow Yellow U.BILIRUBIN Negative mg/dL [...] 13, 2023 02:14 PM Reporting Lab: [address] [address] Performing Lab: [address] [address] TROPONIN I 0.044 ng/mL H 0-0.033 Nov 13, 2023 02:20 PM [facility] COMPREHENSIVE METABOLIC PANEL Specimen Type: PLASMA Comment: No hemolysis noted. Ordering Provider: CYRUS EVANS Report Released Date/Time: Nov 13, 2023 02:14 PM Reporting Lab: [address] [address] Performing Lab: [address] [address] CREATININE 1.17 mg/dL 0.7-1.3 UREA NITROGEN 12.7 [...] >60 Nov 13, 2023 02:20 PM [facility] CBC Specimen Type: BLOOD No comment entered. Ordering Provider: CYRUS EVANS Report Released Date/Time: Nov 13, 2023 02:14 PM Reporting Lab: [facility] [address] [facility] [address] Performing Lab: [facility] [address] [facility] [address] WBC 12.5 10*3/uL H 3.6-11.2 RBC 4.21 [...] Source Nov 13, 2023 11:20 PM 0 [facility] Nov 13, 2023 10:29 PM 3 [facility] Nov 13, 2023 09:10 PM 97 68 172/77 18 97 0 188.4 25 [facility] Nov 13, 2023 08:02 PM 71 164/84 18 [facility] Nov 13, 2023 02:07 PM 98.7 77 122/69 14 97 [facility] Social History: Smoking Status (Most current) and Tobacco Use (All prior to encounter date) This section includes the most current, and the historical, smoking and tobacco- related health factors from the [place] facility where the Encounter took place. Current Smoking Status This section includes the most current smoking, or tobacco-related health factor, from the [place] facility where the Encounter took place. Date/Time Current Smoking Status Comment Facil ity Aug 04, 2022 11:30 AM VA-TOBACCO NEVER USED [facility] Tobacco Use History This section includes a history of the smoking, or tobacco-related health factors, that were collected on or before the date of the Encounter. The data comes from the [place] facility where the Encounter took place. Date/Time [...] CENTER Jun 07, 2006 09:21 [facility] [...] ALL of a patient's completed or amended [place] Advance and Rescinded Directives. The entries below indicate that a directive exists for the patient, but an actual copy is not included with this document. The data comes from all [place] facilities. Date Advance Directives Provider Source Oct 19, 2023 ADVANCE DIRECTIVE WANG MURILLO [facility] Dec 12, 2022 RESCINDED ADVANCE DIRECTIVE JITENDRA MEADOWS [facility] September 12, 2016 ADVANCE DIRECTIVE DISCUSSION YVETTE MEADOWS [facility] Radiology Reports: +/- 30 days [...] the Encounter. The data comes from all [place] treatment facilities. Date/Time Radiology Report Provider Source Nov 23, 2023 09:03 AM NM MYOCARDIAL P SPECT STRESS/REST-P: JESUS ABRAHAM [id number] -1935 M Exm Date: NOV 23, 2023@09:03 Req Phys: MEAGHAN QUINTEROS Loc: [facility]-PC TM-C SAME DAY CLINIC (Re Img Loc: [facility]-NUCLEAR MEDICINE Service: Unknown [address] [address] (Case [id number] COMPLETE) NM MYOCARDIAL PERF SPECT STRESS/R(NM Detailed) CPT:30415 Reason for Study: CHEST PAIN, ASSESS SUSPECTED [...] 23, 2023 Date Verified: NOV 23, 2023 Brim Stretcher E-Sig:/ES/AGUSTO LIPSCOMB Report: PATIENT NAME: JESUS ABRAHAM CASE #: [id number], [id number], [id number], [id number] EXAMINATION: Rest/Lexiscan Stress Gated SPECT Myocardial Imaging [...] code: 1000. Dictated by Rik Brand MD (Lens Block Gauger), Rodney Smith MD (Lens Block Gauger) IAgusto, have reviewed the images and report and concur with these findings. Primary Interpreting Staff: AGUSTO LIPSCOMB, RADIOLOGIST (Brim Stretcher) Primary Interpreting Resident: RIK BRAND MD, MOTOR POOL CLERK /AGUSTO SEN [facility] Nov 13, 2023 04:[address] HEAD W/O CONT: JESUS ABRAHAM [id number] -[id number] M Exm Date: NOV 13, 2023@16:07 Req Phys: CYRUS EVANS Pat Loc: [facility]-EMERGENCY DEPT 2ND SHIFT (R Img Loc: [facility]-CT IMAGING [facility] Service: Unknown [facility] [place] [address] (Case [id number] COMPLETE) CT HEAD W/O CONT (CT Detailed) CPT:16911 Reason for Study: confusion Clinical History: Responsible Attending: cyrus evans Attending Contact Number: [phone] Resident Contact Number: Allergies listed in CPRS chart: Patient has answered NKA Creatinine: CREATININE 1.17 mg/dL 11/13/2023 14:20 /eGFR: STL EGFR (within one year). CREATININE 1.17 mg/dL (11/13/23 14:20) Wt: 189.3 lb [85.87 kg] (10/18/2023 10:32) History of: Renal failure, chronic or acute renal disease: NO Report Status: Verified Date Reported: NOV 13, 2023 Date Verified: NOV 13, 2023 Brim Stretcher E-Sig: Report: CT HEAD W/O CONT HISTORY: confusion COMPARISON: CT head 06/11/2019 TECHNIQUE: Contiguous axial CT images from the level of the skull base through the skull apex, [facility] the local [facility]. 269 images were received by the [place] National Teleradiology Program (NTP) for interpretation. RADIATION [...] clinical concern, consider MRI. READING PHYSICIAN: Anjum [id number] 11/13/2023 15:14 PDT [facility] National Teleradiology Program [phone] (For Medical Practitioner Use Only) Attention Patients / Veterans: If you have questions or concerns about these test results, please contact your ordering provider or primary care team. Primary Interpreting Staff: RADIOLOGY,OUTSIDE SERVICE, Staff Physician / RADIOLOGY,OUTSIDE SERVICE [facility] Nov 13, 2023 03:59 PM CHEST X-RAY, 2 VIEWS: JESUS ABRAHAM [id number] -[id number] M Exm Date: NOV 13, 2023@15:59 Req Phys: CYRUS EVANS Loc: -EMERGENCY DEPT 2ND SHIFT (R Img Loc: -MAIN RADIOLOGY SUITE Service: [facility], [address] [place] [address] (Case [id number] COMPLETE) CHEST X-RAY, 2 VIEWS (RAD Detailed) CPT:34489 Reason for Study: chest pain Clinical History: Report Status: Verified Date Reported: NOV 13, 2023 Date Verified: NOV 13, 2023 Brim Stretcher E-Sig:/ES/AGUSTO LIPSCOMB Report: INDICATION: chest pain COMPARISON: None TECHNIQUE: Chest 2 views Impression: No large pleural effusion or sizable pneumothorax. No new focal consolidation. Unchanged cardiomediastinal silhouette. Primary Interpreting Staff: AGUSTO LIPSCOMB, RADIOLOGIST (Brim Stretcher) /AGUSTO [place] [facility] Pathology Reports: +/- 30 [...] the Encounter. The data comes from all [place] treatment facilities. Date/Time Pathology Report Provider Source Nov 13, 2023 06:10 PM LR MICROBIOLOGY RE PORT: Accession [UID]: [id number] [[id number]] Received: Nov 13, 2023@18:22 Collection sample: B [...] Bacteriology Report [facility]formed By: [facility] [address] [place], [place] [address]IA# [id number] [address] [place] [address] [facility] Nov 13, 2023 06:05 PM LR MICROBIOLOGY RE PORT: Accession [UID]: [id number] [[id number]] Received: Nov 13, 2023@18:23 Collection sample: B D BLD. BOTTLE Collection date: Nov 13, 2023 18:05 Site/Specimen: BLOOD Provider: CYRUS EVANS Test(s) ordered: BLOOD CULT (SET 1)............ completed: Nov 20, 2023 16:20 * BACTERIOLOGY FINAL REPORT => Nov 20, 2023 16:24 TECH CODE: [id number] Bacteriology Remark(s): CULTURE IS NEGATIVE TO DATE, ALL POSITIVES ARE ROUTINELY CALLED. [facility] 11/20/23 CULTURE SHOWS NO GROWTH IN 6 DAYS. =--=--=--=--=--=--=--=--=--=- -=--=--=--=--=--=--=--=--=--= --=--=--=--=--=--=-- Performing Laboratory: Bacteriology Report Performed By: [facility], [address] [facility] CLIA# [id number] [address] [facility] [address] [place] [address] [facility] Encounter Notes: All associated encounter notes This section contains the clinical notes associated to the Encounter. Date/Time Encounter Note(s) Provider Source Nov 13, 2023 08:21 AM ADMINISTRATIVE NOT E: LOCAL TITLE: CONTACT NOTE STL STANDARD TITLE: ADMINISTRATIVE NOTE DATE OF NOTE: NOV 13, 2023@08:21 ENTRY DATE: NOV 13, 2023@08:21:06 AUTHOR: CHARLIE ROOT EXP COSIGNER: URGENCY: STATUS: COMPLETED CONTACT NOTE STL Has ADDENDA Veterans name and last 4 were used to verify identity Verified Veterans telephone #/Updated telephone number in the system REASON FOR CALL: Other: Reason for call: FLACO RECEIVED A CALL FROM THE GRAND DAUGHTER CASSANDRA CALLING TO GIVE AN UPDATE TO THE RNCM. SHE CAN BE REACHED AT [phone] /manuel/ CHARLIE ROOT ADVANCED FOOD SCIENCE TECHNICIAN Signed: 11/13/2023 08:23 Receipt Acknowledged By: 11/13/2023 08:39 /es/ AGUEDA DAWSON Registered Nurse 11/13/2023 ADDENDUM STATUS: COMPLETED Spoke to Cassandra who has concerns about patient developing new [...] QUINTEROS MD STAFF PHYSICIAN Signed: 11/13/2023 11:40 CHARLIE ROOT [facility]
--- OUTSIDE RECORDS SUMMARY | 2024-05-17 21:53 | XMS_ITS | Encounter Summary ---
Author Name [facility] [place] Organization [facility] [place] Address [address] [place] [address] Care Team Providers Care Sound Assistant Name Role Phone MEAGHAN QUINTEROS Primary Care [...] PART A Aug 12, 2001 PART A [id number] [phone] [place] PATIENT MEDICARE (WNR) MEDICARE (M) PART B Aug 12, 2001 PART B [id number] JESUS ABRAHAM PATIENT Selected Encounter This section includes the information on record at [place] for the Encounter. Date/Time Encounter Type Encounter Description Reason Pro vider Source Oct 16, 2023 03:47 PM Outpatient Encounter ADMIN PAT ACTIVTIES (MASNONCT) IHE Encounter Template Text not used by [place] Plan of Treatment: Future Appointments (+ 6 [...] 20 appointments. The data comes from all [facility]. Appointment Date/Time Appointment Type Appointme nt Facility Name Oct 18, 2023 10:20 AM AMBULATORY - MEDICINE [facility] Nov 13, 2023 02:03 PM AMBULATORY - MEDICINE [facility] Nov 23, 2023 09:00 AM AMBULATORY - MEDICINE [facility] Nov 23, 2023 10:00 AM AMBULATORY - MEDICINE [facility] Nov 23, 2023 11:30 AM AMBULATORY - MEDICINE [facility] Dec 24, 2023 02:45 PM AMBULATORY - SURGERY [facility] Jan 01, 2024 02:00 PM AMBULATORY - REHAB [facility] Feb 29, 2024 01:30 PM AMBULATORY - MEDICINE [facility] Mar 03, 2024 09:15 AM AMBULATORY - MEDICINE [facility] Mar 08, 2024 01:30 PM AMBULATORY - MEDICINE [facility] Mar 10, 2024 12:45 PM AMBULATORY - SURGERY [facility] Apr 16, 2024 11:00 AM AMBULATORY - REHAB [facility] Active, Pending, and Scheduled Orders This section includes a listing of several types of active, pending, and scheduled orders, including clinic medications orders, diagnostic test orders, procedure orders and consult orders; where the start date of the order is 45 days before the date of the Encounter or 45 days after the date of theEncounter. The data comes from all [facility]. Test Date/Time Test Type Test Details Facility Name Nov 13, 2023 09:10 PM Laboratory - Chemi stry Order MRSA SURVL NARES DNA NARES WC [facility] Nov 21, 2023 12:00 AM Laboratory - Chemi stry Order HGA1C BLOOD SP [facility] Nov 21, 2023 12:00 AM Laboratory - Chemi stry Order VITAMIN D, 25-HYDROXY GOLD/RED SST SERUM SP [facility] Lab Results: +/- 30 days [...] Range Comment Nov 14, 2023 05:33 AM [facility] PHOSPHOROUS Specimen Type: PLASMA Comment: No hemolysis noted. Ordering Provider: NAYLA DUNN Report Released Date/Time: Nov 14, 2023 04:23 AM Reporting Lab: [facility] [address] [facility] [address] Performing Lab: [facility] [address] [place] [phone] PHOSPHOROUS 2.9 mg/dL 2.3-4.7 Nov 14, 2023 05:33 AM [facility] TSH W/ REFLEX FT4 (STL) Specimen Type: PLASMA No comment entered. Ordering Provider: NAYLA DUNN Report Released Date/Time: Nov 14, 2023 04:23 AM Reporting Lab: [facility] [address] [facility] [address] Performing Lab: [facility] [address] [facility] [address] TSH 3.546 u[IU]/mL 0.47-5 Nov 14, 2023 05:33 AM [facility] MAGNESIUM Specimen Type: PLASMA Comment: No hemolysis noted. Ordering Provider: NAYLA DUNN Report Released Date/Time: Nov 14, 2023 04:23 AM Reporting Lab: [facility] [address] [facility] [address] Performing Lab: [facility] [address] [place] [phone] MAGNESIUM 2.1 mg/dL 1.6-2.6 Nov 14, 2023 05:33 AM [facility] BASIC METABOLIC PANEL Specimen Type: PLASMA Comment: No hemolysis noted. Ordering Provider: NAYLA DUNN Report Released Date/Time: Nov 14, 2023 04:23 AM Reporting Lab: [address] [address] Performing Lab: [address] [address] CREATININE 0.78 mg/dL 0.7-1.3 UREA NITROGEN 12.0 mg/dL 9.0-25.0 GLUCOSE 83 mg/dL 72-99 SODIUM 136 meq/L 136-145 POTASSIUM 4.4 meq/L 3.5-5 CHLORIDE 103 meq/L 98-107 CARBON DIOXIDE 26 meq/L 22-31 CALCIUM 8.8 mg/dL 8.4-10.4 EGFR (CKD-EPI 2020) 86.3 >60 Nov 14, 2023 05:33 AM [facility] CBC Specimen Type: BLOOD Comment: Manual diff performed on 11/13/23 Ordering Provider: NAYLA DUNN Report Released Date/Time: Nov 14, 2023 04:23 AM Reporting Lab: [address] [address] Performing Lab: [address] [address] WBC 12.8 10*3/uL H 3.6-11.2 RBC 3.87 [...] 10*3/uL 0.00-0.20 Nov 14, 2023 01:30 AM [facility] TROPONIN I Specimen Type: PLASMA No comment entered. Ordering Provider: NAYLA DUNN Report Released Date/Time: Nov 14, 2023 01:10 AM Reporting Lab: [facility] [address] [place] [address] Performing Lab: [address] [address] TROPONIN I 0.044 ng/mL H 0-0.033 Nov 13, 2023 10:00 PM [facility] MRSA SURVL NARES DNA Specimen [...] Nov 13, 2023 09:10 PM Reporting Lab: [address] [address] Performing Lab: [address] [address] MRSA SURVL NARES DNA Negative Negative Nov 13, 2023 07:10 PM [facility] TROPONIN I Specimen Type: PLASMA No comment entered. Ordering Provider: CYRUS EVANS Report Released Date/Time: Nov 13, 2023 06:56 PM Reporting Lab: [address] [address] Performing Lab: [address] [address] TROPONIN I 0.045 ng/mL H 0-0.033 Nov 13, 2023 06:20 PM [facility] BLOOD GAS PANEL ABG ([facility]) Specimen Type: VENOUS BLOOD Comment: Test Performed by: [id number] Meter #: [id number] Ordering Provider: CYRUS EVANS Report Released Date/Time: Nov 13, 2023 06:20 PM Reporting Lab: [address] [address] Performing Lab: [address] [address] GEM PH 7.38 7.31-7.41 GEM PCO2 52 [...] TEMP 37.0 Nov 13, 2023 06:15 PM [facility] COVID-19 DIAGNOSTIC (FLU/RSV)([facility]) Specimen Type: NASOPHARYNX Comment: Qualitative [...] Nov 13, 2023 03:21 PM Reporting Lab: [facility] [address] [place] [phone] Performing Lab: [address] [address] INFLUENZA A Negative Negative INFLUENZA B Negative Negative COVID-19 (STL-PB) Not Detected Not Detected RSV (Cepheid) NEGATIVE Negative Nov 13, 2023 06:00 PM [facility] APTT Specimen Type: PLASMA No comment entered. Ordering Provider: CYRUS EVANS Report Released Date/Time: Nov 13, 2023 03:21 PM Reporting Lab: [address] [address] Performing Lab: [address] [address] APTT 33.7 s 26.7-39.9 Nov 13, 2023 06:00 PM [facility] PT/INR NEW ([facility]) Specimen Type: PLASMA No comment entered. Ordering Provider: CYRUS EVANS Report Released Date/Time: Nov 13, 2023 03:21 PM Reporting Lab: [address] [address] Performing Lab: [address] [address] PROTIME 12.7 s H 9.4-12.5 INR VALUE 1.1 {INR} Nov 13, 2023 04:59 PM [facility] URINALYSIS W/ CX REFLEX (L-PB) Specimen Type: URINE No comment entered. Ordering Provider: CYRUS EVANS Report Released Date/Time: Nov 13, 2023 03:12 PM Reporting Lab: [address] [address] Performing Lab: [address] [address] URINE COLOR Yellow Yellow U.BILIRUBIN Negative mg/dL [...] 1.005-1.02 9 Nov 13, 2023 02:20 PM [facility] TROPONIN I Specimen Type: PLASMA Comment: No hemolysis noted. Ordering Provider: CYRUS EVANS Report Released Date/Time: Nov 13, 2023 02:14 PM Reporting Lab: [address] [address] Performing Lab: [address] [address] TROPONIN I 0.044 ng/mL H 0-0.033 Nov 13, 2023 02:20 PM [facility] COMPREHENSIVE METABOLIC PANEL Specimen Type: PLASMA Comment: No hemolysis noted. Ordering Provider: CYRUS EVANS Report Released Date/Time: Nov 13, 2023 02:14 PM Reporting Lab: [address] [address] Performing Lab: [address] [address] CREATININE 1.17 mg/dL 0.7-1.3 UREA NITROGEN 12.7 [...] 60.3 >60 Nov 13, 2023 02:20 PM [facility] CBC Specimen Type: BLOOD No comment entered. Ordering Provider: CYRUS EVANS Report Released Date/Time: Nov 13, 2023 02:14 PM Reporting Lab: [facility] [address] [facility] [address] Performing Lab: [facility] [address] [facility] [address] WBC 12.5 10*3/uL H 3.6-11.2 RBC 4.21 [...] 04, 2022 11:30 AM VA-TOBACCO NEVER USED [facility] Tobacco Use History This section includes a history of the smoking, or tobacco-related health factors, that were collected on or before the date of the Encounter. The data comes from the [place] facility where the Encounter took place. Date/Time Smoking Status/Tobacco Use Comment Lynnette acbailey Mar 11, 2021 10:30 AM VA-TOBACCO FORMER USER [facility] Mar 11, 2021 10:30 AM VA-TOBACCO QUIT 15 YRS OR MORE [facility] Apr 19, 2018 09:07 AM VA-TOBACCO FORMER USER [facility] Apr 19, 2018 09:07 AM VA-TOBACCO QUIT 15 YRS OR MORE [facility] Jul 24, 2017 08:16 AM QUIT TOBACCO >7 YEARS AGO [facility] Apr 16, 2017 12:43 PM QUIT TOBACCO >7 YEARS AGO [facility] Feb 01, 2017 11:47 AM LIFETIME NON-USER OF TOBACCO [facility] Nov 15, 2016 09:00 AM QUIT TOBACCO >7 YEARS AGO [facility] September 11, 2016 06:27 PM QUIT TOBACCO >7 YEARS AGO [facility] Dec 09, 2015 10:17 AM QUIT TOBACCO >7 YEARS AGO [facility] Jan 05, 2015 08:22 AM CURRENT TOBACCO USER [facility] Jan 05, 2015 08:22 AM TOBACCO MEDS OFFER ED BUT DECLINED [facility] Mar 18, 2014 10:40 AM CURRENT TOBACCO USER [facility] Mar 18, 2014 10:40 AM TOBACCO MEDS OFFER ED BUT DECLINED [facility] Nov 04, 2013 09:40 AM CURRENT TOBACCO USER [facility] Nov 26, 2012 08:10 AM QUIT TOBACCO >7 YEARS AGO [facility] May 03, 2009 08:45 AM QUIT TOBACCO >7 YEARS AGO [facility] Jul 06, 2008 08:46 AM CURRENT TOBACCO USER [facility] Jul 25, 2007 12:30 PM QUIT TOBACCO >12 M O & <7 YRS AGO [facility] Jun 07, 2006 09:21 AM CURRENT TOBACCO USER [facility] Jun 07, 2006 09:[address] [facility] S[facility] Aug 25, 2005 11:01 AM CURRENT TOBACCO USER [facility] Aug 25, 2005 11:01 AM TOBACCO CONTEMPLATION STAGE [facility] Oct 25, 2004 10:18 AM CURRENT NON-TOBACC O USER-HX OF USE [facility] Oct 25, 2004 10:18 AM TOBACCO TERMINATION STAGE [facility] Aug 24, 2003 10:43 AM CURRENT NON-TOBACC O USER-HX OF USE [facility] Aug 24, 2003 10:43 AM TOBACCO TERMINATION STAGE [facility] Aug 05, 2002 09:55 AM CURRENT NON-TOBACC O USER-HX OF USE QUIT [facility] Apr 15, 2001 08:28 AM CURRENT NON-TOBACC O USER-HX OF USE quit in 1979 [facility] Advance Directives: All historical and [...] ADVANCE DIRECTIVE WANG MURILLO [facility] Dec 12, 2022 RESCINDED ADVANCE DIRECTIVE JITENDRA MEADOWS [facility] September 12, 2016 ADVANCE DIRECTIVE DISCUSSION YVETTE MEADOWS [facility] Radiology Reports: +/- 30 days [...] PM CT HEAD W/O CONT: JESUS ABRAHAM [id number] -[id number] M Exm Date: NOV 13, 2023@16:07 Req Phys: CYRUS EVANS Loc: [facility]-EMERGENCY DEPT 2ND SHIFT (R Img Loc: [facility]-CT IMAGING [facility] Service: Unknown [facility], [address] [place] [address] (Case [id number] COMPLETE) CT HEAD W/O CONT (CT Detailed) CPT:03747 Reason for Study: confusion Clinical History: Responsible Attending: cyrus evans Attending Contact Number: [phone] Resident Contact Number: Allergies listed in CPRS chart: Patient has answered NKA Creatinine: CREATININE 1.17 mg/dL 11/13/2023 14:20 /eGFR: STL EGFR (within one year). CREATININE 1.17 mg/dL (11/13/23 14:20) Wt: 189.3 lb [85.87 kg] (10/18/2023 10:32) History of: Renal failure, chronic or acute renal disease: NO Report Status: Verified Date Reported: NOV 13, 2023 Date Verified: NOV 13, 2023 High Heel Builder E-Sig: Report: CT HEAD W/O CONT [...] concern, consider MRI. READING PHYSICIAN: Anjum Guevara -[id number] 11/13/2023 15:14 PDT [facility] National Teleradiology Program [phone] (For Medical Practitioner Use Only) Attention Patients / Veterans: If you have questions or concerns about these test results, please contact your ordering provider or primary care team. Primary Interpreting Staff: RADIOLOGY,OUTSIDE SERVICE, Staff Physician / RADIOLOGY,OUTSIDE SERVICE [facility] Nov 13, 2023 03:59 PM CHEST X-RAY, 2 VIEWS: JESUS ABRAHAM [id number] -[id number] M Ex Date: NOV 13, 2023@15:59 Req Phys: CYRUS EVANS Loc: -EMERGENCY DEPT 2ND SHIFT (R Img Loc: -MAIN RADIOLOGY SUITE Service: [address] [address] (Case [id number] COMPLETE) CHEST X-RAY, 2 VIEWS (RAD Detailed) CPT:66304 Reason for Study: chest pain Clinical History: Report Status: Verified Date Reported: NOV 13, 2023 Date Verified: NOV 13, 2023 High Heel Builder E-Sig:/ES/CATHY LIPSCOMB Report: INDICATION: chest pain COMPARISON: None TECHNIQUE: Chest 2 views Impression: No large pleural effusion or sizable pneumothorax. No new focal consolidation. Unchanged cardiomediastinal silhouette. Primary Interpreting Staff: CATHY LIPSCOMB, RADIOLOGIST (High Heel Builder) /CATHY HOOVER [facility] Pathology Reports: +/- 30 days [...] RE PORT: Accession [UID]: [id number] [[id number]] Received: Nov 13, 2023@18:22 Collection sample: Ivon GAONAD. BOTTLE (SET 2)Collection date: Nov 13, 2023 [...] [facility] [address] [facility] CLIA# [id number] [address] [facility] [address] [place] [phone] [place] [address] Nov 13, 2023 06:05 PM LR MICROBIOLOGY RE PORT: Accession [UID]: [id number] [[id number]] Received: Nov 13, 2023@18:23 Collection sample: Ivon [...] --=--=--=--=--=--=-- Performing Laboratory: Bacteriology Report [facility] CLIA# [id number] [address] [facility] [address] [place] [address] [facility] Encounter Notes: All associated encounter notes This section contains the clinical notes associated to the Encounter. Date/Time Encounter Note(s) Provider Source Oct 16, 2023 03:47 PM ADMINISTRATIVE NOT E: LOCAL TITLE: CONTACT NOTE STL STANDARD TITLE: ADMINISTRATIVE NOTE DATE OF NOTE: OCT 16, 2023@15:47 ENTRY DATE: OCT 16, 2023@15:47:53 AUTHOR: JON VALVERDE COSIGNER: URGENCY: STATUS: COMPLETED CONTACT NOTE STL Has ADDENDA Veterans name and last 4 were used to verify identity Verified Veterans telephone #/Updated telephone number in the system REASON FOR CALL: Other: Reason for call: patient needs a press tender smoke signal consult for the facility he stays at /manuel/ JON GOLDEN Signed: 10/16/2023 15:49 Receipt Acknowledged By: 10/17/2023 12:34 /manuel/ MEAGHAN QUINTEROS MD STAFF PHYSICIAN 10/17/2023 ADDENDUM STATUS: COMPLETED Patient requesting community care for physical therapy (unclear diagnosis?) and press tender smoke signal (no foot exam on file here). Will need to make same day appt. I will ask [facility] to assist in scheduling. /manuel/ MEAGHAN QUINTEROS MD STAFF PHYSICIAN Signed: 10/17/2023 12:35 JON VALVERDE [facility]
--- OUTSIDE RECORDS SUMMARY | 2024-05-17 21:53 | XMS_ITS | Encounter Summary ---
Author Name [facility] [place] [facility] [place] [facility] [place] [facility] [place] Address [address] [place] [address] Care Team Providers Care Conversion Man Name Role Phone MEAGHAN QUINTEROS Primary Care [...] PART A Aug 12, 2001 PART A [id number] [place] BUTT PATIENT MEDICARE (WNR) MEDICARE (M) PART B Aug 12, 2001 PART B [id number] [phone] JESUS ABRAHAM PATIENT Selected Encounter This section includes the information on record at [place] for the Encounter. Date/Time Encounter Type Encounter Description Reason Pro vider Source Nov 06, 2023 10:28 AM Outpatient Encounter ADMIN PAT ACTIVTIES (MASNONCT) IHE Encounter Template Text not used by [place] Plan of Treatment: Future Appointments (+ 6 [...] 20 appointments. The data comes from all [facility]. Appointment Date/Time Appointment Type Appointme nt Facility Name Nov 13, 2023 02:03 PM AMBULATORY - MEDICINE [facility] Nov 23, 2023 09:00 AM AMBULATORY - MEDICINE [facility] Nov 23, 2023 10:00 AM AMBULATORY - MEDICINE [facility] Nov 23, 2023 11:30 AM AMBULATORY - MEDICINE [facility] Dec 24, 2023 02:45 PM AMBULATORY - SURGERY [facility] Jan 01, 2024 02:00 PM AMBULATORY - REHAB MEDICIN E [facility] Feb 29, 2024 01:30 PM AMBULATORY - MEDICINE [facility] Mar 03, 2024 09:15 AM AMBULATORY - MEDICINE [facility] Mar 08, 2024 01:30 PM AMBULATORY - MEDICINE [facility] Mar 10, 2024 12:45 PM AMBULATORY - SURGERY [facility] Apr 16, 2024 11:00 AM AMBULATORY - REHAB MEDICIN [facility] Active, Pending, and Scheduled Orders This section includes a listing of several types of active, pending, and scheduled orders, including clinic medications orders, diagnostic test orders, procedure orders and consult orders; where the start date of the order is 45 days before the date of the Encounter or 45 days after the date of theEncounter. The data comes from all [facility]. Test Date/Time Test Type Test Details Facility Name Nov 13, 2023 09:10 PM Laboratory - Chemi stry Order MRSA SURVL NARES DNA NARES WC [facility] Nov 21, 2023 12:00 AM Laboratory - Chemi stry Order HGA1C BLOOD SP [facility] Nov 21, 2023 12:00 AM Laboratory - Chemi stry Order VITAMIN D, 25-HYDROXY GOLD/RED SST SERUM SP [facility] Lab Results: +/- 30 days of the [...] Range Comment Nov 14, 2023 05:33 AM [facility] PHOSPHOROUS Specimen Type: PLASMA Comment: No hemolysis noted. Ordering Provider: NAYLA DNUN Report Released Date/Time: Nov 14, 2023 04:23 AM Reporting Lab: [facility] [address] [facility] [address] Performing Lab: [facility] [address] [facility] [address] PHOSPHOROUS 2.9 mg/dL 2.3-4.7 Nov 14, 2023 05:33 AM [facility] MAGNESIUM Specimen Type: PLASMA Comment: No hemolysis noted. Ordering Provider: NAYLA DUNN Report Released Date/Time: Nov 14, 2023 04:23 AM Reporting Lab: [facility] [address] [facility] [address] Performing Lab: [facility] [address] [facility] [address] MAGNESIUM 2.1 mg/dL 1.6-2.6 Nov 14, 2023 05:33 AM [facility] TSH W/ REFLEX FT4 (STL) Specimen Type: PLASMA No comment entered. Ordering Provider: NAYLA DUNN Report Released Date/Time: Nov 14, 2023 04:23 AM Reporting Lab: [facility] [address] [facility] [address] Performing Lab: [facility] [address] [facility] [address] TSH 3.546 u[IU]/mL 0.47-5 Nov 14, 2023 05:33 AM [facility] BASIC METABOLIC PANEL Specimen Type: PLASMA Comment: No hemolysis noted. Ordering Provider: NAYLA DUNN Report Released Date/Time: Nov 14, 2023 04:23 AM Reporting Lab: [address] [address] Performing Lab: [address] [address] CREATININE 0.78 mg/dL 0.7-1.3 UREA NITROGEN 12.0 mg/dL 9.0-25.0 GLUCOSE 83 mg/dL 72-99 SODIUM 136 meq/L 136-145 POTASSIUM 4.4 meq/L 3.5-5 CHLORIDE 103 meq/L 98-107 CARBON DIOXIDE 26 meq/L 22-31 CALCIUM 8.8 mg/dL 8.4-10.4 EGFR (CKD-EPI 2020) 86.3 >60 Nov 14, 2023 05:33 AM [facility] CBC Specimen Type: BLOOD Comment: Manual diff performed on 11/13/23 Ordering Provider: NAYLA DUNN Report Released Date/Time: Nov 14, 2023 04:23 AM Reporting Lab: [address] [address] Performing Lab: [address] [address] WBC 12.8 10*3/uL H 3.6-11.2 RBC 3.87 [...] 10*3/uL 0.00-0.20 Nov 14, 2023 01:30 AM [facility] TROPONIN I Specimen Type: PLASMA No comment entered. Ordering Provider: NAYLA DUNN Report Released Date/Time: Nov 14, 2023 01:10 AM Reporting Lab: [facility] [address] [place] [address] Performing Lab: [facility] [address] [place] [phone] TROPONIN I 0.044 ng/mL H 0-0.033 Nov 13, 2023 10:00 PM [facility] MRSA SURVL NARES DNA Specimen Type: NARES [...] 13, 2023 09:10 PM Reporting Lab: [address] [address] Performing Lab: [address] [address] MRSA SURVL NARES DNA Negative Negative Nov 13, 2023 07:10 PM [facility] TROPONIN I Specimen Type: PLASMA No comment entered. Ordering Provider: CYRUS EVANS Report Released Date/Time: Nov 13, 2023 06:56 PM Reporting Lab: [facility] [address] [place] [address] Performing Lab: [address] [address] TROPONIN I 0.045 ng/mL H 0-0.033 Nov 13, 2023 06:20 PM [facility] BLOOD GAS PANEL ABG (STL) Specimen Type: VENOUS BLOOD Comment: Test Performed by: [id number] Meter #: [id number] Ordering Provider: CYRUS EVANS Report Released Date/Time: Nov 13, 2023 06:20 PM Reporting Lab: [facility] [address] [facility] [address] Performing Lab: [address] [address] GEM PH 7.38 7.31-7.41 GEM PCO2 52 [...] TEMP 37.0 Nov 13, 2023 06:15 PM [facility] COVID-19 DIAGNOSTIC (FLU/RSV)([facility] [...] Nov 13, 2023 03:21 PM Reporting Lab: [facility] [address] [place] [phone] Performing Lab: [facility] [address] [facility] [address] INFLUENZA A Negative Negative INFLUENZA B Negative Negative COVID-19 (STL-PB) Not Detected Not Detected RSV (Cepheid) NEGATIVE Negative Nov 13, 2023 06:00 PM [facility] PT/INR NEW (STL-MA) Specimen Type: PLASMA No comment entered. Ordering Provider: CYRUS EVANS Report Released Date/Time: Nov 13, 2023 03:21 PM Reporting Lab: [facility] [address] [facility] [address] Performing Lab: [facility] [address] [place] [phone] PROTIME 12.7 s H 9.4-12.5 INR VALUE 1.1 {INR} Nov 13, 2023 06:00 PM [facility] APTT Specimen Type: PLASMA No comment entered. Ordering Provider: CYRUS EVANS Report Released Date/Time: Nov 13, 2023 03:21 PM Reporting Lab: [facility] [address] [facility] [address] Performing Lab: [facility] [address] [place] [phone] APTT 33.7 s 26.7-39.9 Nov 13, 2023 04:59 PM [facility] URINALYSIS W/ CX REFLEX (L-PB) Specimen Type: URINE No comment entered. Ordering Provider: CYRUS EVANS Report Released Date/Time: Nov 13, 2023 03:12 PM Reporting Lab: [facility] [address] [facility] [address] Performing Lab: [facility] [address] [facility] [address] URINE COLOR Yellow Yellow U.BILIRUBIN Negative mg/dL [...] 1.005-1.02 9 Nov 13, 2023 02:20 PM [facility] TROPONIN I Specimen Type: PLASMA Comment: No hemolysis noted. Ordering Provider: CYRUS EVANS Report Released Date/Time: Nov 13, 2023 02:14 PM Reporting Lab: [address] [address] Performing Lab: [address] [address] TROPONIN I 0.044 ng/mL H 0-0.033 Nov 13, 2023 02:20 PM [facility] CBC Specimen Type: BLOOD No comment entered. Ordering Provider: CYRUS EVANS Report Released Date/Time: Nov 13, 2023 02:14 PM Reporting Lab: [address] [address] Performing Lab: [address] [address] WBC 12.5 10*3/uL H 3.6-11.2 RBC 4.21 [...] H 2.10-8.00 Nov 13, 2023 02:20 PM [facility] COMPREHENSIVE METABOLIC PANEL Specimen Type: PLASMA Comment: No hemolysis noted. Ordering Provider: CYRUS EVANS Report Released Date/Time: Nov 13, 2023 02:14 PM Reporting Lab: [facility] [address] [facility] [address] Performing Lab: [facility] [address] [facility] [address] CREATININE 1.17 mg/dL 0.7-1.3 UREA NITROGEN 12.7 [...] and tobacco- related health factors from the [place] facility where the Encounter took place. Current Smoking Status This section includes the most current smoking, or tobacco-related health factor, from the [place] facility where the Encounter took place. Date/Time Current Smoking Status Comment Facil [facility] Aug 04, 2022 11:30 AM VA-TOBACCO NEVER USED [facility] Tobacco Use History This section includes a history of the smoking, or tobacco-related health factors, that were collected on or before the date of the Encounter. The data comes from the [place] facility where the Encounter took place. Date/Time Smoking Status/Tobacco Use Comment F acility Mar 11, 2021 10:30 AM VA-TOBACCO FORMER USER [facility] Mar 11, 2021 10:30 AM VA-TOBACCO QUIT 15 YRS OR MORE [facility] Apr 19, 2018 09:07 AM VA-TOBACCO FORMER USER [facility] Apr 19, 2018 09:07 AM VA-TOBACCO QUIT 15 YRS OR MORE [facility] Jul 24, 2017 08:16 AM QUIT TOBACCO >7 YEARS AGO [facility] Apr 16, 2017 12:43 PM QUIT TOBACCO >7 YEARS AGO [facility] Feb 01, 2017 11:47 AM LIFETIME NON-USER OF TOBACCO [facility] Nov 15, 2016 09:00 AM QUIT TOBACCO >7 YEARS AGO [facility] September 11, 2016 06:27 PM QUIT TOBACCO >7 YEARS AGO [facility] Dec 09, 2015 10:17 AM QUIT TOBACCO >7 YEARS AGO [facility] Jan 05, 2015 08:22 AM CURRENT TOBACCO USER [facility] Jan 05, 2015 08:22 AM TOBACCO MEDS OFFER ED BUT DECLINED [facility] Mar 18, 2014 10:40 AM CURRENT TOBACCO USER [facility] Mar 18, 2014 10:40 AM TOBACCO MEDS OFFER ED BUT DECLINED [facility] Nov 04, 2013 09:40 AM CURRENT TOBACCO USER [facility] Nov 26, 2012 08:10 AM QUIT TOBACCO >7 YEARS AGO [facility] May 03, 2009 08:45 AM QUIT TOBACCO >7 YEARS AGO [facility] Jul 06, 2008 08:46 AM CURRENT TOBACCO USER [facility] Jul 25, 2007 12:30 PM QUIT TOBACCO >12 M O & <7 YRS AGO [facility] Jun 07, 2006 09:21 AM CURRENT TOBACCO USER [facility] Jun 07, 2006 09:21 AM TOBACCO [facility] Aug 25, 2005 11:01 AM CURRENT TOBACCO USER [facility] Aug 25, 2005 11:01 AM TOBACCO CONTEMPLATION STAGE [facility] Oct 25, 2004 10:18 AM CURRENT NON-TOBACC O USER-HX OF USE [facility] Oct 25, 2004 10:18 AM TOBACCO TERMINATION STAGE [facility] Aug 24, 2003 10:43 AM CURRENT NON-TOBACC O USER-HX OF USE [facility] Aug 24, 2003 10:43 AM TOBACCO TERMINATION STAGE [facility] Aug 05, 2002 09:55 AM CURRENT NON-TOBACC O USER-HX OF USE QUIT [facility] Apr 15, 2001 08:28 AM CURRENT NON-TOBACC O USER-HX OF USE quit in 1979 [facility] Advance Directives: All historical and current Section Date Range: From patient's date of to the date document was created. This section includes ALL of a patient's completed or amended [place] Advance and Rescinded Directives. The entries below indicate that a directive exists for the patient, but an actual copy is not included with this document. The data comes from all [facility]. Date Advance Directives Provider Source Oct 19, 2023 ADVANCE DIRECTIVE WANG MURILLO [facility] Dec 12, 2022 RESCINDED ADVANCE DIRECTIVE JITENDRA MEADOWS [facility] September 12, 2016 ADVANCE DIRECTIVE DISCUSSION YVETTE MEADOWS [facility] Radiology Reports: +/- 30 days of the [...] the Encounter. The data comes from all [place] treatment facilities. Date/Time Radiology Report Provider Source Nov 23, 2023 09:03 AM NM MYOCARDIAL P SPECT STRESS/REST-P: JESUS ABRAHAM [id number] -[id number] M Exm Date: NOV 23, 2023@09:03 Req Phys: MEAGHAN QUINTEROS Loc: [facility]-PC TM-C SAME DAY CLINIC (Re Img Loc: [facility]-NUCLEAR MEDICINE Service: Unknown [facility] [address] [place] [address] (Case [id number] COMPLETE) NM MYOCARDIAL PERF SPECT STRESS/R(NM Detailed) CPT:46188 Reason for Study: CHEST PAIN, ASSESS SUSPECTED [...] 23, 2023 Date Verified: NOV 23, 2023 Electrical Design Technician E-Sig:/ES/AGUSTO GOVEA Report: PATIENT NAME: JESUS ABRAHAM CASE #: [id number], [id number], [id number], [id number] EXAMINATION: Rest/Lexiscan Stress Gated SPECT Myocardial Imaging [...] code: 1000. Dictated by Rik Brand MD (Editor Publications), Rodney Smith MD (Editor Publications) I, Agusto Govea, have reviewed the images and report and concur with these findings. Primary Interpreting Staff: AGUSTO GOVEA, RADIOLOGIST (Electrical Design Technician) Primary Interpreting Resident: RIK BRAND MD, CIVIL CAD DESIGNER /AGUSTO MAST [facility] Nov 13, 2023 04:[address] HEAD W/O CONT: JESUS ABRAHAM [id number] -[id number] M Ex Date: NOV 13, 2023@16:07 Req Phys: CYRUS VEANS Loc: [facility]-EMERGENCY DEPT 2ND SHIFT (R Img Loc: [facility]-CT IMAGING [facility] Service: [address] [address] (Case [id number] COMPLETE) CT HEAD W/O CONT (CT Detailed) CPT:22047 Reason for Study: confusion Clinical History: Responsible Attending: cyrus evans Attending Contact Number: [phone] Resident Contact Number: Allergies listed in CPRS chart: Patient has answered NKA Creatinine: CREATININE 1.17 mg/dL 11/13/2023 14:20 /eGFR: STL EGFR (within one year). CREATININE 1.17 mg/dL (11/13/23 14:20) Wt: 189.3 lb [85.87 kg] (10/18/2023 10:32) History of: Renal failure, chronic or acute renal disease: NO Report Status: Verified Date Reported: NOV 13, 2023 Date Verified: NOV 13, 2023 Electrical Design Technician E-Sig: Report: CT HEAD W/O CONT HISTORY: confusion COMPARISON: CT head 06/11/2019 TECHNIQUE: Contiguous axial CT images from the level of the skull base through the skull apex, performed at the local [place] facility. 269 images were received by the [place] National Teleradiology Program (NTP) for interpretation. RADIATION [...] clinical concern, consider MRI. READING PHYSICIAN: Anjum [id number] 11/13/2023 15:14 PDT [facility] National Teleradiology Program [phone] (For Medical Practitioner Use Only) Attention Patients / Veterans: If you have questions or concerns about these test results, please contact your ordering provider or primary care team. Primary Interpreting Staff: RADIOLOGY,OUTSIDE SERVICE, Staff Physician / RADIOLOGY,OUTSIDE SERVICE [facility] Nov 13, 2023 03:59 PM CHEST X-RAY, 2 VIEWS: JESUS ABRAHAM [id number] -[id number] M Exm Date: NOV 13, 2023@15:59 Req Phys: CYRUS EVANS Loc: [facility]-EMERGENCY DEPT 2ND SHIFT (R Img Loc: [facility]-MAIN RADIOLOGY SUITE Service: Unknown [facility] [address] [place] [address] (Case [id number] COMPLETE) CHEST X-RAY, 2 VIEWS (RAD Detailed) CPT:65439 Reason for Study: chest pain Clinical History: Report Status: Verified Date Reported: NOV 13, 2023 Date Verified: NOV 13, 2023 Electrical Design Technician E-Sig:/ES/AGUSTO GOVEA Report: INDICATION: chest pain COMPARISON: None TECHNIQUE: Chest 2 views Impression: No large pleural effusion or sizable pneumothorax. No new focal consolidation. Unchanged cardiomediastinal silhouette. Primary Interpreting Staff: AGUSTO GOVEA, RADIOLOGIST ([place]) /AGUSTO [place] [facility] Pathology Reports: +/- 30 [...] the Encounter. The data comes from all [place] treatment facilities. Date/Time Pathology Report Provider Source Nov 13, 2023 06:10 PM LR MICROBIOLOGY RE PORT: Accession [UID]: [id number] [[id number]] Received: Nov 13, 2023@18:22 Collection sample: B [...] Bacteriology Report Performed By: [facility] CLIA# [id number] [address] [facility] [address] [place] [address] [facility] Nov 13, 2023 06:05 PM LR MICROBIOLOGY RE PORT: Accession [UID]: [id number] [[id number]] Received: Nov 13, 2023@18:23 Collection sample: B [...] Bacteriology Report Performed By: [facility] CLIA# [id number] [address] [facility] [address] [place] [address] [facility] Encounter Notes: All associated encounter notes This section contains the clinical notes associated to the Encounter. Date/Time Encounter Note(s) Provider Source Nov 06, 2023 09:28 AM ADMINISTRATIVE NOT E: LOCAL TITLE: CCC: SCHEDULING ADMINISTRATION STANDARD TITLE: ADMINISTRATIVE NOTE DATE OF NOTE: NOV 06, 2023@09:28:43 ENTRY DATE: NOV 06, 2023@09:28:44 AUTHOR: HARMONY ROTHMAN COSIGNER: URGENCY: STATUS: COMPLETED Patient Demographics Patient Name: JESUS ABRAHAM Patient Primary Phone: [phone] Patient Primary [address] [address] [place] [id number] Patient : 1935 Patient Age: 88 Call Back Number: [phone] Caller/Recipient Relation to Patient: Other If Other Describe Relation to Patient: GRANDCHILD Caller Name: NHAN Scheduling Cannot Complete Scheduling Action Reason: Restricted / Unavailable Clinic Requested Service(s): Specialty Care Specialty / Community Care Requested: [facility]-CARDIOLOGY STRESS Patient Expects Callback: Yes Scheduling Note Reason: Cannot Complete Appointment Request Scheduling Note Comments: Daughter of called in and would like a return call to r/s [facility]-CARDIOLOGY STRESS appt from Nov 23, 2023@10:00 [facility], to a sooner date if possible. Open Request: RTC (Return to Clinic Order) /manuel/ LARISA GOLDEN Signed: 11/06/2023 09:28 Receipt Acknowledged By: 11/07/2023 10:16 /manuel/ SHONA LAIRD ADVANCED HARMONY LAL [facility]
--- OUTSIDE RECORDS SUMMARY | 2024-05-17 21:53 | XMS_ITS | Encounter Summary ---
Author Name [facility] [place] Organization [facility] [place] [place] Address [address] [place] [address] Care Team Providers Care Clinical Trials Manager Name Role Phone MEAGHAN QUINTEROS Primary [...] PART B Aug 12, 2001 PART B [id number] JESUS PEDERSEN PATIENT MEDICARE (WNR) MEDICARE (M) PART A Aug 12, 2001 PART A [id number] JESUS PEEDRSEN PATIENT Selected Encounter This section includes the information on record at [place] for the Encounter. Date/Time Encounter Type Encounter Description Reason Provider Source Nov 13, 2023 02:03 PM EMERGENCY DEPT VISIT MOD [facility] EMERGENCY DEPT ICD-10-CM R53.1 CYRUS Espinoza Encounter Template Text not used by [place] Assessments - Encounter Diagnoses This section includes the primary and secondary diagnoses documented for the Encounter. Date/Time Primary/Secondary Diagnosis Diagnosis Name Provider Source Nov 13, 2023 09:16 PM PRIMARY Weakness CYRUS MCLEAN [facility] Nov 13, 2023 09:16 PM SECONDARY Abnormal levels of other serum enzymes CYRUS MCLEAN [facility] Nov 13, 2023 09:16 PM SECONDARY Chest pain, unspecified CYRUS MCLEAN [facility] Nov 13, 2023 09:16 PM SECONDARY Elevated white blood cell count, unspecified CYRUS MCLEAN [facility] Plan of Treatment: Future Appointments (+ 6 months) and Future Tests (+/- 45 days) The Plan of Treatment section includes future care activities for the patient from all [facility]. This section includes future appointments and future orders which are active, pending or scheduled. Future Appointments This section includes appointments that were scheduled to occur 6 months from the date of the Encounter, up to a maximum of 20 appointments. The data comes from all [facility]. Appointment Date/Time Appointment Type Appointme nt Facility Name Nov 23, 2023 09:00 AM AMBULATORY - MEDICINE [facility] Nov 23, 2023 10:00 AM AMBULATORY - MEDICINE [facility] Nov 23, 2023 11:30 AM AMBULATORY - MEDICINE [facility] Dec 24, 2023 02:45 PM AMBULATORY - SURGERY [facility] Jan 01, 2024 02:00 PM AMBULATORY - REHAB MEDICIN [facility] Feb 29, 2024 01:30 PM AMBULATORY - MEDICINE [facility] Mar 03, 2024 09:15 AM AMBULATORY - MEDICINE [facility] Mar 08, 2024 01:30 PM AMBULATORY - MEDICINE [facility] Mar 10, 2024 12:45 PM AMBULATORY - SURGERY [facility] Apr 16, 2024 11:00 AM AMBULATORY - REHAB MEDICIN E [facility] May 15, 2024 11:00 AM AMBULATORY - SURGERY [facility] Active, Pending, and Scheduled Orders This section [...] Order MRSA SURVL NARES DNA NARES WC [facility] Nov 21, 2023 12:00 AM Laboratory - Chemi stry Order HGA1C BLOOD SP [facility] Nov 21, 2023 12:00 AM Laboratory - Chemi stry Order VITAMIN D, 25-HYDROXY GOLD/RED SST SERUM SP [facility] Lab Results: +/- 30 days [...] Range Comment Nov 14, 2023 05:33 AM [facility] TSH W/ REFLEX FT4 (STL) Specimen Type: PLASMA No comment entered. Ordering Provider: NAYLA DUNN Report Released Date/Time: Nov 14, 2023 04:23 AM Reporting Lab: [facility] [address] [facility] [address] Performing Lab: [address] [address] TSH 3.546 u[IU]/mL 0.47-5 Nov 14, 2023 05:33 AM [facility] PHOSPHOROUS Specimen Type: PLASMA Comment: No hemolysis noted. Ordering Provider: NAYLA DUNN Report Released Date/Time: Nov 14, 2023 04:23 AM Reporting Lab: [address] [address] Performing Lab: [address] [address] PHOSPHOROUS 2.9 mg/dL 2.3-4.7 Nov 14, 2023 05:33 AM [facility] MAGNESIUM Specimen Type: PLASMA Comment: No hemolysis noted. Ordering Provider: SHAUN,SHIVANG S Report Released Date/Time: Nov 14, 2023 04:23 AM Reporting Lab: [address] [address] Performing Lab: [address] [address] MAGNESIUM 2.1 mg/dL 1.6-2.6 Nov 14, 2023 05:33 AM [facility] BASIC METABOLIC PANEL Specimen Type: PLASMA Comment: No hemolysis noted. Ordering Provider: NAYLA DUNN Report Released Date/Time: Nov 14, 2023 04:23 AM Reporting Lab: [address] [address] Performing Lab: [address] [address] CREATININE 0.78 mg/dL 0.7-1.3 UREA NITROGEN 12.0 mg/dL 9.0-25.0 GLUCOSE 83 mg/dL 72-99 SODIUM 136 meq/L 136-145 POTASSIUM 4.4 meq/L 3.5-5 CHLORIDE 103 meq/L 98-107 CARBON DIOXIDE 26 meq/L 22-31 CALCIUM 8.8 mg/dL 8.4-10.4 EGFR (CKD-EPI 2020) 86.3 >60 Nov 14, 2023 05:33 AM [facility] CBC Specimen Type: BLOOD Comment: Manual diff performed on 11/13/23 Ordering Provider: NAYLA DUNN Report Released Date/Time: Nov 14, 2023 04:23 AM Reporting Lab: [address] [address] Performing Lab: [address] [address] WBC 12.8 10*3/uL H 3.6-11.2 RBC 3.87 [...] 10*3/uL 0.00-0.20 Nov 14, 2023 01:30 AM [facility] TROPONIN I Specimen Type: PLASMA No comment entered. Ordering Provider: NAYLA DUNN Report Released Date/Time: Nov 14, 2023 01:10 AM Reporting Lab: [address] [address] Performing Lab: [address] [address] TROPONIN I 0.044 ng/mL H 0-0.033 Nov 13, 2023 10:00 PM [facility] MRSA SURVL NARES DNA Specimen [...] 13, 2023 09:10 PM Reporting Lab: [address] [address] Performing Lab: [address] [address] MRSA SURVL NARES DNA Negative Negative Nov 13, 2023 07:10 PM [facility] TROPONIN I Specimen Type: PLASMA No comment entered. Ordering Provider: CYRUS MCLEAN Report Released Date/Time: Nov 13, 2023 06:56 PM Reporting Lab: [place] [address] [facility] [address] Performing Lab: [address] [address] TROPONIN I 0.045 ng/mL H 0-0.033 Nov 13, 2023 06:20 PM [facility] BLOOD GAS PANEL ABG ([facility]) Specimen Type: VENOUS BLOOD Comment: Test Performed by: [id number] Meter #: [id number] Ordering Provider: CYRUS MCLEAN Report Released Date/Time: Nov 13, 2023 06:20 PM Reporting Lab: [place] [address] [facility] [address] Performing Lab: [place] [address] [facility] [address] GEM PH 7.38 7.31-7.41 GEM PCO2 52 [...] TEMP 37.0 Nov 13, 2023 06:15 PM [facility] COVID-19 DIAGNOSTIC (FLU/RSV)(STL) Specimen Type: [...] information for final interpretation. Ordering Provider: CYRUS MCLEAN Report Released Date/Time: Nov 13, 2023 03:21 PM Reporting Lab: [facility] [address] [place] [address] Performing Lab: [address] [address] INFLUENZA A Negative Negative INFLUENZA B Negative Negative COVID-19 (L-PB) Not Detected Not Detected RSV (Cepheid) NEGATIVE Negative Nov 13, 2023 06:00 PM [facility] PT/INR NEW ([facility] Specimen Type: PLASMA No comment entered. Ordering Provider: CYRUS MCLEAN Report Released Date/Time: Nov 13, 2023 03:21 PM Reporting Lab: [address] [address] Performing Lab: [facility] [address] [place] [address] PROTIME 12.7 s H 9.4-12.5 INR VALUE 1.1 {INR} Nov 13, 2023 06:00 PM [facility] APTT Specimen Type: PLASMA No comment entered. Ordering Provider: CYRUS MCLEAN Report Released Date/Time: Nov 13, 2023 03:21 PM Reporting Lab: [address] [address] Performing Lab: [address] [address] APTT 33.7 s 26.7-39.9 Nov 13, 2023 04:59 PM [facility] URINALYSIS W/ CX REFLEX (L-PB) Specimen Type: URINE No comment entered. Ordering Provider: CYRUS MCLEAN Report Released Date/Time: Nov 13, 2023 03:12 PM Reporting Lab: [facility] [address] [place] [address] Performing Lab: [facility] [address] [place] [address] URINE COLOR Yellow Yellow U.BILIRUBIN Negative mg/dL [...] 1.005-1.02 9 Nov 13, 2023 02:20 PM [facility] TROPONIN I Specimen Type: PLASMA Comment: No hemolysis noted. Ordering Provider: CYRUS MCLEAN Report Released Date/Time: Nov 13, 2023 02:14 PM Reporting Lab: [facility] [address] [place] [address] Performing Lab: [facility] [address] [place] [address] TROPONIN I 0.044 ng/mL H 0-0.033 Nov 13, 2023 02:20 PM [facility] COMPREHENSIVE METABOLIC PANEL Specimen Type: PLASMA Comment: No hemolysis noted. Ordering Provider: CYRUS MCLEAN Report Released Date/Time: Nov 13, 2023 02:14 PM Reporting Lab: [facility] [address] [facility] [address] Performing Lab: [facility] [address] [place] [address] CREATININE 1.17 mg/dL 0.7-1.3 UREA NITROGEN 12.7 [...] 60.3 >60 Nov 13, 2023 02:20 PM [facility] CBC Specimen Type: BLOOD No comment entered. Ordering Provider: CYRUS MCLEAN Report Released Date/Time: Nov 13, 2023 02:14 PM Reporting Lab: [facility] [address] [facility] [address] Performing Lab: [facility] [address] [facility] [address] WBC 12.5 10*3/uL H 3.6-11.2 RBC 4.21 [...] Source Nov 13, 2023 11:[address] [facility] Nov 13, 2023 10:[address] [facility] Nov 13, 2023 09:10 PM 97 68 172/77 18 [address] [facility] Nov 13, 2023 08:02 PM 71 164/[address] [facility] Nov 13, 2023 02:07 PM 98.7 77 122/[address] [facility] N Social History: Smoking Status (Most current) [...] 04, 2022 11:30 AM VA-TOBACCO NEVER USED [facility] Tobacco Use History This section includes a history of the smoking, or tobacco-related health factors, that were collected on or before the date of the Encounter. The data comes from the [place] facility where the Encounter took place. Date/Time Smoking Status/Tobacco Use Comment F acility Mar 11, 2021 10:30 AM VA-TOBACCO FORMER USER [facility] Mar 11, 2021 10:30 AM VA-TOBACCO QUIT 15 YRS OR MORE [facility] Apr 19, 2018 09:07 AM VA-TOBACCO FORMER USER [facility] Apr 19, 2018 09:07 AM VA-TOBACCO QUIT 15 YRS OR MORE [facility] Jul 24, 2017 08:16 AM QUIT TOBACCO >7 YEARS AGO [facility] Apr 16, 2017 12:43 PM QUIT TOBACCO >7 YEARS AGO [facility] Feb 01, 2017 11:47 AM LIFETIME NON-USER OF TOBACCO [facility] Nov 15, 2016 09:00 AM QUIT TOBACCO >7 YEARS AGO [facility] September 11, 2016 06:27 PM QUIT TOBACCO >7 YEARS AGO [facility] Dec 09, 2015 10:17 AM QUIT TOBACCO >7 YEARS AGO [facility] Jan 05, 2015 08:22 AM CURRENT TOBACCO USER [facility] Jan 05, 2015 08:22 AM TOBACCO MEDS OFFER ED BUT DECLINED [facility] Mar 18, 2014 10:40 AM CURRENT TOBACCO USER [facility] Mar 18, 2014 10:40 AM TOBACCO MEDS OFFER ED BUT DECLINED [facility] Nov 04, 2013 09:40 AM CURRENT TOBACCO USER [facility] Nov 26, 2012 08:10 AM QUIT TOBACCO >7 YEARS AGO [facility] May 03, 2009 08:45 AM QUIT TOBACCO >7 YEARS AGO [facility] Jul 06, 2008 08:46 AM CURRENT TOBACCO USER [facility] Jul 25, 2007 12:30 PM QUIT TOBACCO >12 M O & <7 YRS AGO [facility] Jun 07, 2006 09:21 AM CURRENT TOBACCO USER [facility] Jun 07, 2006 09:21 [facility] Aug 25, 2005 11:01 AM CURRENT TOBACCO USER [facility] Aug 25, 2005 11:01 AM TOBACCO CONTEMPLATION STAGE [facility] Oct 25, 2004 10:18 AM CURRENT NON-TOBACC O USER-HX OF USE [facility] Oct 25, 2004 10:18 AM TOBACCO TERMINATION STAGE [facility] Aug 24, 2003 10:43 AM CURRENT NON-TOBACC O USER-HX OF USE [facility] Aug 24, 2003 10:43 AM TOBACCO TERMINATION STAGE [facility] Aug 05, 2002 09:55 AM CURRENT NON-TOBACC O USER-HX OF USE QUIT [facility] Apr 15, 2001 08:28 AM CURRENT NON-TOBACC O USER-HX OF USE quit in 1979 [facility] Advance Directives: All historical and [...] Oct 19, 2023 ADVANCE DIRECTIVE WANG MURILLO [facility] Dec 12, 2022 RESCINDED ADVANCE DIRECTIVE JITENDRA MEADOWS [facility] September 12, 2016 ADVANCE DIRECTIVE DISCUSSION YVETTE MEADOWS [facility] Radiology Reports: +/- 30 days [...] AM NM MYOCARDIAL P SPECT STRESS/REST-P: JESUS PEDERSEN [id number] -[id number] M Ex Date: NOV 23, 2023@09:03 Req Phys: MEAGHAN QUINTEROS Loc: [facility]-PC TM-C SAME DAY CLINIC (Re Img Loc: [facility]-NUCLEAR MEDICINE Service: Unknown [facility], [facility] [address] [place] [address] (Case [id number] COMPLETE) NM MYOCARDIAL PERF SPECT STRESS/R(NM Detailed) CPT:13476 Reason for Study: CHEST PAIN, ASSESS SUSPECTED [...] 23, 2023 Date Verified: NOV 23, 2023 Gis Instructor E-Sig:/ES/AGUSTO LIPSCOMB Report: PATIENT NAME: JESUS PEDERSEN CASE #: [id number], [id number], [id number], [id number] EXAMINATION: Rest/Lexiscan Stress Gated SPECT Myocardial Imaging [...] code: 1000. Dictated by Rik Brand MD (Corporate Driver), Rodney Smith MD (Corporate Driver) IAgusto, have reviewed the images and report and concur with these findings. Primary Interpreting Staff: AGUSTO LIPSCOMB, RADIOLOGIST (Gis Instructor) Primary Interpreting Resident: RIK BRAND MD, CONTAINER FILLER /AGUSTO SEN [facility] Nov 13, 2023 04:[address] HEAD W/O CONT: JESUS PEDERSEN [id number] -[id number] M Exm Date: NOV 13, 2023@16:07 Req Phys: CYRUS MCLEAN Loc: [facility]-EMERGENCY DEPT 2ND SHIFT (R Img Loc: HAL-CT IMAGING HAL Service: Unknown [facility], [facility] [address] [place] [address] (Case [id number] COMPLETE) CT HEAD W/O CONT (CT Detailed) CPT:16985 Reason for Study: confusion Clinical History: Responsible Attending: cyrsu mclean Attending Contact Number: [phone] Resident Contact Number: Allergies listed in CPRS chart: Patient has answered NKA Creatinine: CREATININE 1.17 mg/dL 11/13/2023 14:20 /eGFR: STL EGFR (within one year). CREATININE 1.17 mg/dL (11/13/23 14:20) Wt: 189.3 lb [85.87 kg] (10/18/2023 10:32) History of: Renal failure, chronic or acute renal disease: NO Report Status: Verified Date Reported: NOV 13, 2023 Date Verified: NOV 13, 2023 Gis Instructor E-Sig: Report: CT HEAD W/O CONT HISTORY: [...] concern, consider MRI. READING PHYSICIAN: Anjum Guevara -[phone] 11/13/2023 15:14 PDT [facility] [phone] (For Medical Practitioner Use Only) Attention Patients / Veterans: If you have questions or concerns about these test results, please contact your ordering provider or primary care team. Primary Interpreting Staff: RADIOLOGY,OUTSIDE SERVICE, Staff Physician / RADIOLOGY,OUTSIDE SERVICE [facility] Nov 13, 2023 03:59 PM CHEST X-RAY, 2 VIEWS: JESUS PEDERSEN [id number] -1935 M Ex Date: NOV 13, 2023@15:59 Req Phys: CYRUS MCLEAN Loc: -EMERGENCY DEPT 2ND SHIFT (R Img Loc: -MAIN RADIOLOGY SUITE Service: [address] [address] (Case [id number] COMPLETE) CHEST X-RAY, 2 VIEWS (RAD Detailed) CPT:93133 Reason for Study: chest pain Clinical History: Report Status: Verified Date Reported: NOV 13, 2023 Date Verified: NOV 13, 2023 Gis Instructor E-Sig:/ES/AGUSTO LIPSCOMB Report: INDICATION: chest pain COMPARISON: None TECHNIQUE: Chest 2 views Impression: No large pleural effusion or sizable pneumothorax. No new focal consolidation. Unchanged cardiomediastinal silhouette. Primary Interpreting Staff: AGUSTO LIPSCOMB, RADIOLOGIST (Gis Instructor) /AGUSTO HOOVER [facility] Pathology Reports: +/- 30 [...] RE PORT: Accession [UID]: [id number] [[id number]] Received: Nov 13, 2023@18:22 Collection sample: B D BLD. BOTTLE (SET 2)Collection date: Nov 13, 2023 18:10 Site/Specimen: BLOOD Provider: CYRUS MCLEAN Test(s) ordered: BLOOD CULT (SET 2)............ completed: Nov 20, 2023 16:22 * BACTERIOLOGY FINAL REPORT => Nov 20, 2023 16:24 TECH CODE: 864 Bacteriology Remark(s): CULTURE IS NEGATIVE TO DATE, ALL POSITIVES ARE ROUTINELY CALLED. KASEY 11/20/23 CULTURE SHOWS NO GROWTH IN 6 DAYS. =--=--=--=--=--=--=--=--=--=- -=--=--=--=--=--=--=--=--=--= --=--=--=--=--=--=-- Performing Laboratory: Bacteriology Report [facility] By: [facility] [address] [place] [address] CLIA# [id number] 5 [facility] [address] [place] [phone] [facility] Nov 13, 2023 06:05 PM LR MICROBIOLOGY RE PORT: Accession [UID]: [id number] [[id number]] Received: Nov 13, 2023@18:23 Collection sample: B D BLD. BOTTLE Collection date: Nov 13, 2023 18:05 Site/Specimen: BLOOD Provider: CYRUS MCLEAN Test(s) ordered: BLOOD CULT (SET 1)............ completed: Nov 20, 2023 16:20 * BACTERIOLOGY FINAL REPORT => Nov 20, 2023 16:24 TECH CODE: 864 Bacteriology Remark(s): CULTURE IS NEGATIVE TO DATE, ALL POSITIVES ARE ROUTINELY CALLED. KASEY PW 11/20/23 CULTURE SHOWS NO GROWTH IN 6 DAYS. =--=--=--=--=--=--=--=--=--=- -=--=--=--=--=--=--=--=--=--= --=--=--=--=--=--=-- Performing Laboratory: Bacteriology Report Performed By: [facility] [address] [place] [address]# [id number] [address] [place] [address] [phone] [facility] Encounter Notes: All associated encounter notes This section contains the clinical notes associated to the Encounter. Date/Time Encounter Note(s) Provider Source Nov 13, 2023 09:08 PM RESPIRATORY THERAPY NOTE: LOCAL TITLE: [facility] RESPIRATORY THERAPY NOTE STL STANDARD TITLE: RESPIRATORY THERAPY NOTE DATE OF NOTE: NOV 13, 2023@21:08 ENTRY DATE: NOV 13, 2023@21:08:49 AUTHOR: RILEY QUINTANILLA EXP COSIGNER: URGENCY: STATUS: COMPLETED Time of test performance: Nov@18:00 Sample collected by: Provider/Nurse: Sample type: Venous Specimen delivered to RT by: RT PICK-UP /es/ RILEY QUINTANILLA REGISTERED RESPIRATORY THERAPIST Signed: 11/13/2023 21:[address] [facility] Nov 13, 2023 02:54 PM ADDENDUM: LOCAL TITLE: Addendum STANDARD TITLE: ADDENDUM DATE OF NOTE: NOV 13, 2023@14:54:10 ENTRY DATE: NOV 13, 2023@14:54:11 AUTHOR: MEAGHAN QUINTEROS EXP COSIGNER: URGENCY: STATUS: COMPLETED Spoke to Dr. Mclean about Mr. Pedersen. 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 He also complains of frequent chest pain and has been to outside ER x 2 in the past month with negative cardiac workup. /es/ MEAGHAN QUINTEROS MD STAFF PHYSICIAN Signed: 11/13/2023 14:56 Receipt Acknowledged By: 11/13/2023 23:54 /es/ CYRUS MCLEAN STAFF PHYSICIAN --- Original Document --- 11/13/23 EMERGENCY DEPARTMENT TRIAGE NOTE: Emergency Department/Urgent Care Center Triage Patient age:88 Sex: MALE On arrival patient was: AMBULATORY Patient phone number: Allergies: Patient has answered NKA Subjective/Chief Complaint: fatigue and dizziness pt ambulatory to ER traige room with steady gait in no observable distress respirations even and unlabroed, awake and alert. pt related was told to present to ER by PCP after being seen in OSH ER and discharged last night. pt related dizziness and fatigue. pt related chronic dizziness, feels it is worse recently. per pt family, PCP requesting MRI, echo, and neurology The patient is not a fall risk. BP: 122/69 P: 77 R: 14 WT: T: 98.7 HT: Sepsis Screening Evaluation Emergency Severity Index (BONILLA) level Level 3 Current Medications: Active Outpatient Medications (including Supplies): Active [...] MOUTH ONCE A DAY 8 Total Medications Current Problems: 1) Coronary artery disease (SNOMED CT 81540966) 2) Hyperlipidaemia (SNOMED CT 24335274) 3) Allergic rhinitis * (ICD-9-CM 477.9) 4) Carcinoma, Basal Cell 5) Osteoarthritis of knee (SNOMED CT 335945288) 6) Age related macular degeneration (SNOMED CT 646973000) 7) Colonic Polyps 8) Diabetes Mellitus without mention of Complication, type II or unspecified type, 9) Benign essential hypertension (SNOMED CT 1916718) 10) Pain in joint involving shoulder region [...] 780.79) 19) History/Skin/CA 20) Dermatitis (SNOMED CT 973038763) 21) Dry skin (SNOMED CT 43768395) 22) Chest pain 23) Exudative age-related macular degeneration 24) Hyperlipidemia 25) Diabetes mellitus 26) Insomnia 27) Osteoarthritis of knee Suicide Screen: Parker Suicide Severity Rating Scale (C-SSRS) screener 1. Over the past month, have you wished you were or wished you could go to sleep and not wake up? No 2. Over the past month, have you had any actual thoughts of killing yourself? No 3. Over the past month, have you been thinking about how you might do this? Response not required due to responses to other questions. 4. Over the past month, have you had these thoughts and had some intention of acting on them? Response not required due to responses to other questions. 5. Over the past month, have you started to work out or worked out the details of how to kill yourself? Response not required due to responses to other questions. 6. If yes, at any time in the past month did you intend to carry out this plan? Response not required due to responses to other questions. 7. In your lifetime, have you ever done anything, started to do anything, or prepared to do anything to end your life (for example, collected pills, obtained a gun, gave away valuables, went to the roof but didn't jump)? No 8. If YES, was this within the past 3 months? Response not required due to responses to other questions. /manuel/ JOE CARREON, RN REGISTERED NURSE Signed: 11/13/2023 14:13 11/13/2023 ADDENDUM STATUS: COMPLETED 1800: Pt to ED Room 104-2. 1810: Additional labs drawn and sent, to include blood cx from 2 sites. 1820: COVID obtained and sent. Pt placed on 0.9NS bolus per MD orders. /manuel/ MACARIO HODGES RN, BSN REGISTERED NURSE Signed: 11/13/2023 18:20 11/13/2023 ADDENDUM STATUS: COMPLETED 1905: Repeat Troponin drawn and sent. /manuel/ MACARIO HODGES RN, BSN REGISTERED NURSE Signed: 11/13/2023 19:08 11/13/2023 ADDENDUM STATUS: COMPLETED 0-- Assumed care of pt in Ed room 104-1. Report received from Godwin Tran Pt waiting for admission at this time. 1942-- ERP at bedside 1999-- Pt resting on stretcher. VS taken Blood Pressure: 164/84 Pulse: 71 Respiratory Rate: 18 Pulse Oximetry: 97% 2034-- report given to Dennys Tran on 7N Inpatient MD at bedside. 2049-- Pt out of Ed via wheelchair to 7N /manuel/ SIMA DIAZ RN REGISTERED NURSE Signed: 11/13/2023 21:09 MEAGHAN QUINTEROS [facility] Nov 13, 2023 02:18 PM PHYSICIAN EMERGENCY DEPT NOTE: LOCAL TITLE: EMERGENCY DEPARTMENT STL STANDARD TITLE: PHYSICIAN EMERGENCY DEPT NOTE DATE OF NOTE: NOV 13, 2023@14:18 ENTRY DATE: NOV 13, 2023@14:18:43 AUTHOR: CYRUS MCLEAN EXP COSIGNER: URGENCY: STATUS: COMPLETED TRIAGE CHIEF COMPLAINT: Chest pain, weakness HPI: Patient is an 88-year-old male with a PMH of CAD, HTN, type 2 diabetes who presents to ED with family with concerns for chest pain and weakness. Patient not entirely forthcoming, has had intermittent chest pain over his right chest, but not for a couple of days. Gets lightheaded when he rises from a seated position, but this improves if he waits momentarily before ambulating. Has stumbled a few times, but no falls and has not hit his head per patient and son. Seen at outside ED yesterday and discharged home, family upset urine was not collected and they are wanting him admitted. Patient does not want to be in the hospital, but is willing to stay if he has to. On ROS patient denies fevers, headache, current lighteadedness, vertigo, syncope, vision changes, current chest pain, shortness of breath, hemoptysis, lower extremity edema, abdominal pain, nausea and vomiting, diarrhea, bloody stools, flank pain, hematuria, dysuria, focal weakness, numbness and tingling, speech change, facial droop, REVIEW OF SYSTEMS: See HPI for further details. All 10 systems reviewed and otherwise negative unless otherwise detailed herein. PAST MEDICAL HISTORY: 1) Coronary artery disease (SNOMED CT 61015119) 2) Hyperlipidaemia (SNOMED CT 09607992) 3) Allergic rhinitis * (ICD-9-CM 477.9) 4) Carcinoma, Basal Cell 5) Osteoarthritis of knee (SNOMED CT 439201276) 6) Age related macular degeneration (SNOMED CT 272290489) 7) Colonic Polyps 8) Diabetes Mellitus without mention of Complication, type II or unspecified type, 9) Benign essential hypertension (SNOMED CT 9485329) 10) Pain in joint involving shoulder region [...] 780.79) 19) History/Skin/CA 20) Dermatitis (SNOMED CT 276247398) 21) Dry skin (SNOMED CT 47015069) 22) Chest pain 23) Exudative age-related macular degeneration 24) Hyperlipidemia 25) Diabetes mellitus 26) Insomnia 27) Osteoarthritis of knee CURRENT MEDICATIONS: Active Outpatient Medications (including Supplies): Active Outpatient [...] MOUTH ONCE A DAY 8 Total Medications No medications found.. I have reviewed the patient's medication list with the patient and/or his/her care-travel nurse. Any medication discrepancies have been resolved. Patient will be provided with an updated list of his/her medication(s). SURGICAL HISTORY: not pertinent FAMILY HISTORY: not pertinent SOCIAL HISTORY: Social History Main Topics: Smoking status: 01/05/2015 Current Tobacco User Alcohol Use: not indorsed ____ Illicit Drug Use: not indorsed Sexual Activity: Other Topics of Concern: ALLERGIES: Review of patient's allergies indicates: Patient has answered NKA PHYSICAL EXAM: VITAL SIGNS: 122/69 (11/13/2023 14:07)77 (11/13/2023 14:07)97% (11/13/2023 14:07)98.7 F [37.1 C] (11/13/2023 14:07)14 (11/13/2023 14:07)The OBJECT WEIGHT LAST 3 was NOT found...Contact IRM. MAThe OBJECT was NOT found...Contact IRM.PAIN ASSESSMENTThe OBJECT was NOT found...Contact IRM. No data available for: PAIN CONSTITUTIONAL: No acute distress, Non-toxic appearance, no diaphoresis HENT: airway patent, oropharynx clear EYES: PERRL, EOMI, no nystagmus, Conj pink, sclera clear NECK: Normal range of motion without pain, nontender, supple CARDIOVASCULAR: Normal heart rate, Normal rhythm PULMONARY/CHEST: CTA bilaterally, chest wall nontender without visual or palpable abnormalities ABDOMEN: Soft, flat, No tenderness BACK: Normal ROM, No tenderness EXTREMITIES: Normal range of motion NEUROLOGIC: Alert & oriented x 3, Normal motor function, normal sensory function, no ataxia, Normal speech, No focal deficits appreciated SKIN: No rash to face, head or neck. Skin otherwise warm, Dry, No erythema, No rash LABS: ----- Collection time: Nov 13, 2023@18:20 Test Name Result Units Range --------- ------ ----- ----- GEM PH 7.38 UNITS 7.31 - 7.41 GEM PCO2 52 mmHg 41 - 51 GEM PO2 30 mmHg 25 - 48 GEM SODIUM 131 mmol/L 136 - 145 GEM POTASSIUM 4.7 mmol/L 3.5 - 5.0 GEM CHLORIDE 99 mmol/L 98 - 107 GEM IONIZED CA 1.21 mmol/L 1.09 - 1.30 GEM HCT 45 % 38 - 48 GEM THB 13.7 g/dL 13.1 - 16.8 GEM 02HB 37.9 % 60.0 - 85.0 GEM COHB 0.4 % Ref: See Interp GEM METHB 0.8 % Ref: <=1.9 GEM GLUCOSE 116 mg/dL 72 - 99 GEM LACTATE 1.4 mmol/L 0.9 - 2.0 GEM SO2 38.3 % 68.0 - 77.0 GEM CHCO3 30.8 mmol/L 20.0 - 26.0 GEM BASE EXCESS 4.4 mmol/L -2.5 - 2.5 GEM FIO2 21.0 % GEM PT. TEMP 37.0 ??C Test Name Result Units Range --------- ------ ----- ----- WBC 12.5 H 10*3/uL 3.6 - 11.2 RBC 4.21 10*6/uL 4.10 - 5.70 HGB 12.7 L g/dL 13.1 - 16.8 HCT 37.7 L % 38.2 - 48.4 MCV 89.5 fL 80.0 - 100.0 MCH 30.2 pg 27.0 - 34.0 MCHC 33.7 g/dL 33.0 - 36.0 RDW 13.5 % 11.8 - 15.1 PLT 457 H 10*3/uL 150 - 400 MPV 9.0 fL 7.5 - 11.2 NEUTROPHILS 72.2 % LYMPHOCYTES 15.6 % MONOCYTES 8.7 % EOSINOPHILS 2.6 % BASOPHILS 0.9 % NEUT#-MDIFF 9.03 H K/cmm 2.10 - 8.00 LYMPH#-MDIFF 1.95 K/cmm 0.77 - 4.50 MONO#-MDIFF 1.09 H K/cmm 0.19 - 0.80 EO#-MDIFF 0.33 K/cmm 0.00 - 0.60 BASO#-MDIFF 0.11 K/cmm 0.01 - 0.20 POIKILOCYTOSIS 1+ PAPPENHEIMER BODIES 0 PLT EST-CV INCREASED Ref: ADEQUATE Test Name Result Units Range --------- ------ ----- ----- SODIUM 134 L mEq/L 136 - 145 POTASSIUM 4.5 mEq/L 3.5 - 5 CHLORIDE 102 mEq/L 98 - 107 UREA NITROGEN 12.7 mg/dL 9.0 - 25.0 CREATININE 1.17 mg/dL 0.7 - 1.3 CALCIUM 9.1 mg/dL 8.4 - 10.4 PROTEIN 7.1 g/dL 6 - 8.6 ALBUMIN 3.7 g/dL 3.4 - 5 ALKALINE PHOSPHATASE 71 U/L 40 - 150 ALT/SGPT 34 U/L 8 - 40 AST/SGOT 25 U/L 5 - 34 TOTAL BILIRUBIN 0.3 mg/dL 0.2 - 1.2 CARBON DIOXIDE 21 L mEq/L 22 - 31 GLUCOSE 132 H mg/dL 72 - 99 TROPONIN I 0.044 H ng/mL 0 - 0.033 EGFR (CKD-EPI 2020) 60.3 Ref: >=60 Test Name Result Units Range --------- ------ ----- ----- INFLUENZA A Negative Ref: Negative INFLUENZA B Negative Ref: Negative COVID-19 (STL-PB) Not Detected Ref: Not Detected RSV (Cepheid) NEGATIVE Ref: Negative Test Name Result Units Range --------- ------ ----- ----- URINE COLOR Yellow Ref: Yellow APPEARANCE Clear Ref: Clear U.PH 6.0 5.0 - 8.0 U.BILIRUBIN Negative mg/dL Ref: Negative U.NITRITE Negative mg/dL Ref: Negative URINE RBC/HPF 1 /HPF 0 - 5 URINE WBC/HPF 2 /HPF 0 - 5 MUCUS RARE /LPF Ref: Negative-Rare HYALINE CASTS 7 /LPF 0 - 5 URN.GLUCOSE Normal mg/dL Ref: Negative URN.PROTEIN 30 H mg/dL Negative - 20 URN.UROBILINOGEN Normal mg/dL Ref: Normal URN.BLOOD Negative mg/dL Ref: Negative-Trace URN.KETONES Trace mg/dL Ref: Negative-Trace URN.LEUK.EST. Negative mg/dL Ref: Negative-Trace URN.SPECIFIC GRAVITY 1.026 1.005 - 1.029 Collection time: Nov 13, 2023@19:10 Test Name Result Units Range --------- ------ ----- ----- TROPONIN I 0.045 H ng/mL 0 - 0.033 IMAGING: -------- CT HEAD W/O CONT Exm Date: NOV 13, 2023@16:07 Req Phys: CYRUS MCLEAN Loc: 7-N MED-HAL/11-13-2023@23:15 Img Loc: HAL-CT IMAGING HAL Service: Unknown [facility], [facility] [address] [place] [address] (Case [id number] COMPLETE) CT HEAD W/O CONT (CT Detailed) CPT:39497 Reason for Study: confusion Clinical History: Responsible Attending: cyrus mclean Attending Contact Number: [phone] Resident Contact Number: Allergies listed in CPRS chart: Patient has answered NKA Creatinine: CREATININE 1.17 mg/dL 11/13/2023 14:20 /eGFR: STL EGFR (within one year). CREATININE 1.17 mg/dL (11/13/23 14:20) Wt: 189.3 lb [85.87 kg] (10/18/2023 10:32) History of: Renal failure, chronic or acute renal disease: NO Report Status: Verified Date Reported: NOV 13, 2023 Date Verified: NOV 13, 2023 Gis Instructor E-Sig: Report: CT HEAD W/O CONT HISTORY: [...] clinical concern, consider MRI. READING PHYSICIAN: Anjum [id number] 11/13/2023 15:14 PDT [facility] National Teleradiology Program [phone] (For Medical Practitioner Use Only) CHEST X-RAY, 2 VIEWS Exm Date: NOV 13, 2023@15:59 Req Phys: CYRUS MCLEAN [facility] Loc: 7-N MED-/11-13-2023@23:15 [facility] Loc: -MAIN RADIOLOGY SUITE Service: Unknown [facility], [facility] [address] [place] [address] (Case [id number] COMPLETE) CHEST X-RAY, 2 VIEWS (RAD Detailed) CPT:21236 Reason for Study: chest pain Clinical History: Report Status: Verified Date Reported: NOV 13, 2023 Date Verified: NOV 13, 2023 Gis Instructor E-Sig:/ES/AGUSTO LIPSCOMB Report: INDICATION: chest pain COMPARISON: None TECHNIQUE: Chest 2 views Impression: No large pleural effusion or sizable pneumothorax. No new focal consolidation. Unchanged cardiomediastinal silhouette. Primary Interpreting Staff: AGUSTO LIPSCOMB, RADIOLOGIST (Gis Instructor) /NJ EKG: ---- NSR with HR 65, RBBB, no acute ST/T changes ED COURSE & MEDICAL DECISION MAKING: Nursing notes, medications, vital signs, allergies and pertinent labs & imaging studies reviewed and independently interpreted by myself (see chart for details) with results reviewed with patient and family. Stable, alert, nontoxic, nonfocal. Work-up with small leukocytosis 12.5 and mild troponin elevation. No chest pain for couple of days, EKG nonischemic. Repeat troponin overall unchanged. Holding on heparin. Also holding on antibiotics given no obvious source, blood cultures obtained. Admitting to medicine. CASE MANAGEMENT SPECIALIST SERVICE/TIME: 19:12 -called medicine team, who will admit MEDICATIONS GIVEN IN ED: [X] YES [ ] NO 1 L NS bolus Clinical information obtained from an independent historian. History obtained from or confirmed by: ___spouse ___parent ___guardian _x__family ___friend ___EMS ___other: Discussed with radiology regarding test interpretation: I performed an independent interpretation of: _x__EKG _x__plain x-ray _x__labs _x__CT scan ___ultrasound ___MRI ___rhythm strip ___other Patient's care impacted by: _x__Diabetes _x__Hypertension ___Cancer ___other: Patient's care is significantly limited by social determinants of health including, but not limited to: ___inadequate housing ___low income ___alcoholism and drug addiction in family ___problems related to primary support group ___unemployment ___problems with employment ___language barrier ___lack of transportation ___psychiatric disease ___other social determinants of health: External records reviewed: _x__Inpatient records _x__outpatient records _x__prior outpatient labs _x__prior outpatient radiology ___primary care record ___outside ED record ___PMD referral ___outside ER ___urgent care referral ___other: Management of the patient was discussed with: ___Hospitalist ___consultant ___behavioral health provider ___primary care provider ___other: The following testing was considered but ultimately was not performed after discussion with the patient/family: I considered prescription management with the following but ultimately did not prescribe: ___pain medication ___antiviral ___antibiotic ___other: I considered admission/ observation but decided upon discharge due to: DIFFERENTIAL DIAGNOSES CONSIDERED: Differential diagnosis includes, but is not limited to ACS, CHF, COPD, PE, myocarditis/pericarditis, pneumothorax, pleurisy, dissection, GERD, pre-syncope or syncope, orthostatic hypotension, other DECISION to ADMIT / DISCHARGE TIME: 15:15 ABNORMAL BLOOD PRESSURE: The patient was advised vis-a-vis observation of abnormal blood pressure, risk and complications of same, need for possible treatment or enhanced treatment and advised to follow-up with their PCP for a 5-day blood pressure screen and determination of a diagnosis and possible need for treatment or enhanced treatment of previously established hypertension. DISPOSITION CONDITION:[X] Improved [ ] Unchanged [ ] Deteriorated CLINICAL IMPRESSION: 1 -chest pain 2 -lightheadedness 3 -elevated troponin 4 -leukocytosis ADDITIONAL SIGNATURE PCP: [X] YES [ ] NO [ ] not listed Active Outpatient Medications (including Supplies): Active Outpatient [...] MOUTH ONCE A DAY 8 Total Medications /es/ CYRUS MCLEAN STAFF PHYSICIAN Signed: 11/13/2023 23:21 Receipt Acknowledged By: 11/14/2023 10:24 /es/ AGUEDA DAWSON Registered Nurse 11/14/2023 08:21 /es/ MEAGHAN QUINTEROS MD STAFF PHYSICIAN CYRUS MCLEAN [facility] Nov 13, 2023 02:10 PM EMERGENCY DEPT TRIAGE NOTE: LOCAL TITLE: EMERGENCY DEPARTMENT TRIAGE NOTE STANDARD TITLE: EMERGENCY DEPT TRIAGE NOTE DATE OF NOTE: NOV 13, 2023@14:10 ENTRY DATE: NOV 13, 2023@14:10:11 AUTHOR: STEVENSON ABBOTT EXP COSIGNER: URGENCY: STATUS: COMPLETED EMERGENCY DEPARTMENT TRIAGE NOTE Has ADDENDA Emergency Department/Urgent Care Center Triage Patient age:88 Sex: MALE On arrival patient was: AMBULATORY Patient phone number: Allergies: Patient has answered NKA Subjective/Chief Complaint: fatigue and dizziness pt ambulatory to ER traige room with steady gait in no observable distress respirations even and unlabroed, awake and alert. pt related was told to present to ER by PCP after being seen in OSH ER and discharged last night. pt related dizziness and fatigue. pt related chronic dizziness, feels it is worse recently. per pt family, PCP requesting MRI, echo, and neurology The patient is not a fall risk. BP: 122/69 P: 77 R: 14 WT: T: 98.7 HT: Sepsis Screening Evaluation Emergency Severity Index (BONILLA) level Level 3 Current Medications: Active Outpatient Medications (including Supplies): Active [...] MOUTH ONCE A DAY 8 Total Medications Current Problems: 1) Coronary artery disease (SNOMED CT 62116163) 2) Hyperlipidaemia (SNOMED CT 90998340) 3) Allergic rhinitis * (ICD-9-CM 477.9) 4) Carcinoma, Basal Cell 5) Osteoarthritis of knee (SNOMED CT 107362408) 6) Age related macular degeneration (SNOMED CT 971877279) 7) Colonic Polyps 8) Diabetes Mellitus without mention of Complication, type II or unspecified type, 9) Benign essential hypertension (SNOMED CT 3138816) 10) Pain in joint involving shoulder region [...] 780.79) 19) History/Skin/CA 20) Dermatitis (SNOMED CT 063950101) 21) Dry skin (SNOMED CT 48742983) 22) Chest pain 23) Exudative age-related macular degeneration 24) Hyperlipidemia 25) Diabetes mellitus 26) Insomnia 27) Osteoarthritis of knee Suicide Screen: Parker Suicide Severity Rating Scale (C-SSRS) screener 1. Over the past month, have you wished you were or wished you could go to sleep and not wake up? No 2. Over the past month, have you had any actual thoughts of killing yourself? No 3. Over the past month, have you been thinking about how you might do this? Response not required due to responses to other questions. 4. Over the past month, have you had these thoughts and had some intention of acting on them? Response not required due to responses to other questions. 5. Over the past month, have you started to work out or worked out the details of how to kill yourself? Response not required due to responses to other questions. 6. If yes, at any time in the past month did you intend to carry out this plan? Response not required due to responses to other questions. 7. In your lifetime, have you ever done anything, started to do anything, or prepared to do anything to end your life (for example, collected pills, obtained a gun, gave away valuables, went to the roof but didn't jump)? No 8. If YES, was this within the past 3 months? Response not required due to responses to other questions. /manuel/ JOE CARREON, RN REGISTERED NURSE Signed: 11/13/2023 14:13 11/13/2023 ADDENDUM STATUS: COMPLETED Spoke to Dr. Mclean about Mr. Pedersen. 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 He also complains of frequent chest pain and has been to outside ER x 2 in the past month with negative cardiac workup. /manuel/ MEAGHAN QUINTEROS MD STAFF PHYSICIAN Signed: 11/13/2023 14:56 Receipt Acknowledged By: * AWAITING SIGNATURE * CYRUS MCLEAN 11/13/2023 ADDENDUM STATUS: COMPLETED 1800: Pt to ED Room 104-2. 1810: Additional labs drawn and sent, to include blood cx from 2 sites. 1820: COVID obtained and sent. Pt placed on 0.9NS bolus per MD orders. /manuel/ MACARIO HODGES RN, BSN REGISTERED NURSE Signed: 11/13/2023 18:20 11/13/2023 ADDENDUM STATUS: COMPLETED 1905: Repeat Troponin drawn and sent. /manuel/ MACARIO HODGES RN, BSN REGISTERED NURSE Signed: 11/13/2023 19:08 11/13/2023 ADDENDUM STATUS: COMPLETED 1930-- Assumed care of pt in Ed room 104-1. Report received from Godwin Tran Pt waiting for admission at this time. 1942-- ERP at bedside 1999-- Pt resting on stretcher. VS taken Blood Pressure: 164/84 Pulse: 71 Respiratory Rate: 18 Pulse Oximetry: 97% 2034-- report given to Dennys Tran on 7N Inpatient MD at bedside. 2049-- Pt out of Ed via wheelchair to 7N /es/ SIMA DIAZ RN REGISTERED NURSE Signed: 11/13/2023 21:09 STEVENSON ABBOTT [facility]
--- OUTSIDE RECORDS SUMMARY | 2024-05-17 21:53 | XMS_ITS | Encounter Summary ---
Author Name [facility] [place] [facility] [place] Address [address] [place] [address] Care Team Providers Care Foster Care Therapist Name Role Phone MEAGHAN QUINTEROS Primary Care [...] PART A Aug 12, 2001 PART A [id number] JESUS ABRAHAM PATIENT MEDICARE (WNR) MEDICARE (M) PART B Aug 12, 2001 PART B [id number] [phone] JESUS ABRAHAM PATIENT Selected Encounter This section includes the information on record at [place] for the Encounter. Date/Time Encounter Type Encounter Description Reason Provider Source Nov 13, 2023 12:12 PM Outpatient Encounter CARDIOLOGY ICD-10-CM R07.89 Other chest pain OU,JIAFU IHE Encounter Template Text not used by [place] Assessments - Encounter Diagnoses This section includes the primary and secondary diagnoses documented for the Encounter. Date/Time Primary/Secondary Diagnosis Diagnosis Name Provider Source Nov 13, 2023 12:16 PM PRIMARY Other chest pain OU,JIAFU [facility] Plan of Treatment: Future Appointments (+ 6 months) and Future Tests (+/- 45 days) The Plan of Treatment section includes future care activities for the patient from [facility] [place] [facility] This section includes future appointments and future orders which are active, pending or scheduled. Future Appointments This section includes appointments that were scheduled to occur 6 months from the date of the Encounter, up to a maximum of 20 appointments. The data comes from all [facility]. Appointment Date/Time Appointment Type Appointme nt Facility Name Nov 23, 2023 09:00 AM AMBULATORY - MEDICINE [facility] Nov 23, 2023 10:00 AM AMBULATORY - MEDICINE [facility] Nov 23, 2023 11:30 AM AMBULATORY - MEDICINE [facility] Dec 24, 2023 02:45 PM AMBULATORY - SURGERY [facility] Jan 01, 2024 02:00 PM AMBULATORY - REHAB MEDICIN E [facility] Feb 29, 2024 01:30 PM AMBULATORY - MEDICINE [facility] Mar 03, 2024 09:15 AM AMBULATORY - MEDICINE [facility] Mar 08, 2024 01:30 PM AMBULATORY - MEDICINE [facility] Mar 10, 2024 12:45 PM AMBULATORY - SURGERY [facility] Apr 16, 2024 11:00 AM AMBULATORY - RE[facility]AB [facility] May 15, 2024 11:00 AM AMBULATORY - SURGERY [facility] Active, Pending, and Scheduled Orders This [...] NARES DNA NARES WC [facility] Nov 21, 2023 12:00 AM Laboratory - Chemi stry Order HGA1C BLOOD SP [facility] Nov 21, 2023 12:00 AM Laboratory - Chemi stry Order VITAMIN D, 25-HYDROXY GOLD/RED SST SERUM SP [facility] Lab Results: +/- 30 days of [...] Comment Nov 14, 2023 05:33 AM [facility] PHOSPHOROUS Specimen Type: PLASMA Comment: No hemolysis noted. Ordering Provider: NAYLA DUNN Report Released Date/Time: Nov 14, 2023 04:23 AM Reporting Lab: [address] [address] Performing Lab: [address] [address] PHOSPHOROUS 2.9 mg/dL 2.3-4.7 Nov 14, 2023 05:33 AM [facility] MAGNESIUM Specimen Type: PLASMA Comment: No hemolysis noted. Ordering Provider: NAYLA DUNN Report Released Date/Time: Nov 14, 2023 04:23 AM Reporting Lab: [address] [address] Performing Lab: [address] [address] MAGNESIUM 2.1 mg/dL 1.6-2.6 Nov 14, 2023 05:33 AM [facility] TSH W/ REFLEX FT4 (STL) Specimen Type: PLASMA No comment entered. Ordering Provider: NAYLA DUNN Report Released Date/Time: Nov 14, 2023 04:23 AM Reporting Lab: [address] [address] Performing Lab: [address] [address] TSH 3.546 u[IU]/mL 0.47-5 Nov 14, 2023 05:33 AM [facility] BASIC METABOLIC PANEL Specimen Type: PLASMA Comment: No hemolysis noted. Ordering Provider: NAYLA DUNN Report Released Date/Time: Nov 14, 2023 04:23 AM Reporting Lab: [facility] [address] [facility] [address] Performing Lab: [address] [address] CREATININE 0.78 mg/dL 0.7-1.3 UREA NITROGEN 12.0 mg/dL 9.0-25.0 GLUCOSE 83 mg/dL 72-99 SODIUM 136 meq/L 136-145 POTASSIUM 4.4 meq/L 3.5-5 CHLORIDE 103 meq/L 98-107 CARBON DIOXIDE 26 meq/L 22-31 CALCIUM 8.8 mg/dL 8.4-10.4 EGFR (CKD-EPI 2020) 86.3 >60 Nov 14, 2023 05:33 AM [facility] CBC Specimen Type: BLOOD Comment: Manual diff performed on 11/13/23 Ordering Provider: NAYLA DUNN Report Released Date/Time: Nov 14, 2023 04:23 AM Reporting Lab: [address] [address] Performing Lab: [address] [address] WBC 12.8 10*3/uL H 3.6-11.2 RBC 3.87 [...] 0.00-0.20 Nov 14, 2023 01:30 AM [facility] TROPONIN I Specimen Type: PLASMA No comment entered. Ordering Provider: NAYLA DUNN Report Released Date/Time: Nov 14, 2023 01:10 AM Reporting Lab: [facility] [address] [facility] [address] Performing Lab: [address] [address] TROPONIN I 0.044 ng/mL H 0-0.033 Nov 13, 2023 10:00 PM [facility] MRSA SURVL NARES DNA Specimen Type: NARES [...] 13, 2023 09:10 PM Reporting Lab: [facility] [address] [place] [phone] Performing Lab: [place] [address] [facility] [address] MRSA SURVL NARES DNA Negative Negative Nov 13, 2023 07:10 PM [facility] TROPONIN I Specimen Type: PLASMA No comment entered. Ordering Provider: CYRUS EVANS Report Released Date/Time: Nov 13, 2023 06:56 PM Reporting Lab: [address] [address] Performing Lab: [place] [id number] [facility] [address] TROPONIN I 0.045 ng/mL H 0-0.033 Nov 13, 2023 06:20 PM [facility] BLOOD GAS PANEL ABG (L) Specimen Type: VENOUS BLOOD Comment: Test Performed by: [id number] Meter #: [id number] Ordering Provider: CYRUS EVANS Report Released Date/Time: Nov 13, 2023 06:20 PM Reporting Lab: [place] [address] [facility] [address] Performing Lab: [place] [address] [facility] [address] GEM PH 7.38 7.31-7.41 GEM PCO2 52 [...] 37.0 Nov 13, 2023 06:15 PM [facility] COVID-19 DIAGNOSTIC (FLU/RSV)([facility]) Specimen Type: NASOPHARYNX Comment: Qualitative real-time PCR [...] Nov 13, 2023 03:21 PM Reporting Lab: [facility] [address] [place] [phone] Performing Lab: [facility] [address] [place] [phone] INFLUENZA A Negative Negative INFLUENZA B Negative Negative COVID-19 (L-PB) Not Detected Not Detected RSV (Cepheid) NEGATIVE Negative Nov 13, 2023 06:00 PM [facility] PT/INR NEW (L-MA) Specimen Type: PLASMA No comment entered. Ordering Provider: CYRUS EVANS Report Released Date/Time: Nov 13, 2023 03:21 PM Reporting Lab: [facility] [address] [place] [phone] Performing Lab: [address] [address] PROTIME 12.7 s H 9.4-12.5 INR VALUE 1.1 {INR} Nov 13, 2023 06:00 PM [facility] APTT Specimen Type: PLASMA No comment entered. Ordering Provider: CYRUS EVANS Report Released Date/Time: Nov 13, 2023 03:21 PM Reporting Lab: [facility] [address] [place] [address] Performing Lab: [facility] [address] [place] [phone] APTT 33.7 s 26.7-39.9 Nov 13, 2023 04:59 PM [facility] URINALYSIS W/ CX REFLEX (L-PB) Specimen Type: URINE No comment entered. Ordering Provider: CYRUS EVANS Report Released Date/Time: Nov 13, 2023 03:12 PM Reporting Lab: [facility] [address] [facility] [place] [address] Performing Lab: [facility] [address] [place] [phone] URINE COLOR Yellow Yellow U.BILIRUBIN Negative mg/dL [...] 9 Nov 13, 2023 02:20 PM [facility] TROPONIN I Specimen Type: PLASMA Comment: No hemolysis noted. Ordering Provider: CYRUS EVANS Report Released Date/Time: Nov 13, 2023 02:14 PM Reporting Lab: [address] [address] Performing Lab: [address] [address] TROPONIN I 0.044 ng/mL H 0-0.033 Nov 13, 2023 02:20 PM [facility] CBC Specimen Type: BLOOD No comment entered. Ordering Provider: CYRUS EVANS Report Released Date/Time: Nov 13, 2023 02:14 PM Reporting Lab: [address] [address] Performing Lab: [address] [address] WBC 12.5 10*3/uL H 3.6-11.2 RBC 4.21 [...] H 2.10-8.00 Nov 13, 2023 02:20 PM [facility] COMPREHENSIVE METABOLIC PANEL Specimen Type: PLASMA Comment: No hemolysis noted. Ordering Provider: CYRUS EVANS Report Released Date/Time: Nov 13, 2023 02:14 PM Reporting Lab: [facility] [address] [facility] [address] Performing Lab: [facility] [address] [facility] [address] CREATININE 1.17 mg/dL 0.7-1.3 UREA NITROGEN 12.7 [...] Source Nov 13, 2023 11:20 PM [address] [facility] Nov 13, 2023 10:29 PM [address] [facility] Nov 13, 2023 09:10 PM 97 68 172/77 18 97 0 188.4 [address] [facility] Nov 13, 2023 08:02 PM 71 164/84 [address] [facility] Nov 13, 2023 02:07 PM 98.7 77 122/69 14 [address] [facility] Social History: Smoking Status (Most current) [...] 2022 11:30 AM VA-TOBACCO NEVER USED [facility] Tobacco Use History This section includes a history of the smoking, or tobacco-related health factors, that were collected on or before the date of the Encounter. The data comes from the [place] facility where the Encounter took place. Date/Time Smoking Status/Tobacco Use Comment F acility Mar 11, 2021 10:30 AM VA-TOBACCO FORMER USER [facility] Mar 11, 2021 10:30 AM VA-TOBACCO QUIT 15 YRS OR MORE [facility] Apr 19, 2018 09:07 AM VA-TOBACCO FORMER USER [facility] Apr 19, 2018 09:07 AM VA-TOBACCO QUIT 15 YRS OR MORE [facility] Jul 24, 2017 08:16 AM QUIT TOBACCO >7 YEARS AGO [facility] Apr 16, 2017 12:43 PM QUIT TOBACCO >7 YEARS AGO [facility] Feb 01, 2017 11:47 AM LIFETIME NON-USER OF TOBACCO [facility] Nov 15, 2016 09:00 AM QUIT TOBACCO >7 YEARS AGO [facility] September 11, 2016 06:27 PM QUIT TOBACCO >7 YEARS AGO [facility] Dec 09, 2015 10:17 AM QUIT TOBACCO >7 YEARS AGO [facility] Jan 05, 2015 08:22 AM CURRENT TOBACCO USER [facility] Jan 05, 2015 08:22 AM TOBACCO MEDS OFFER ED BUT DECLINED [facility] Mar 18, 2014 10:40 AM CURRENT TOBACCO USER [facility] Mar 18, 2014 10:40 AM TOBACCO MEDS OFFER ED BUT DECLINED [facility] Nov 04, 2013 09:40 AM CURRENT TOBACCO USER [facility] Nov 26, 2012 08:10 AM QUIT TOBACCO >7 YEARS AGO [facility] May 03, 2009 08:45 AM QUIT TOBACCO >7 YEARS AGO [facility] Jul 06, 2008 08:46 AM CURRENT TOBACCO USER [facility] Jul 25, 2007 12:30 PM QUIT TOBACCO >12 M O & <7 YRS AGO [facility] Jun 07, 2006 09:21 AM CURRENT TOBACCO USER [facility] Jun 07, 2006 09:21 [facility] Aug 25, 2005 11:01 AM CURRENT TOBACCO USER [facility] Aug 25, 2005 11:01 AM TOBACCO CONTEMPLATION STAGE [facility] Oct 25, 2004 10:18 AM CURRENT NON-TOBACC O USER-HX OF USE [facility] Oct 25, 2004 10:18 AM TOBACCO TERMINATION STAGE [facility] Aug 24, 2003 10:43 AM CURRENT NON-TOBACC O USER-HX OF USE [facility] Aug 24, 2003 10:43 AM TOBACCO TERMINATION STAGE [facility] Aug 05, 2002 09:55 AM CURRENT NON-TOBACC O USER-HX OF USE QUIT [facility] Apr 15, 2001 08:28 AM CURRENT NON-TOBACC O USER-HX OF USE quit in 1979 [facility] Advance Directives: All historical and current Section [...] Oct 19, 2023 ADVANCE DIRECTIVE WANG MURILLO [facility] Dec 12, 2022 RESCINDED ADVANCE DIRECTIVE JITENDRA MEADOWS [facility] September 12, 2016 ADVANCE DIRECTIVE DISCUSSION YVETTE MEADOWS [facility] Radiology Reports: +/- 30 days of [...] NM MYOCARDIAL P SPECT STRESS/REST-P: JESUS ABRAHAM [id number] -[id number] M Exm Date: NOV 23, 2023@09:03 Req Phys: MEAGHAN QUINTEROS Loc: [facility]-PC TM-C SAME DAY CLINIC (Re Img Loc: [facility]-NUCLEAR MEDICINE Service: Unknown [address] [address] (Case [id number] COMPLETE) NM MYOCARDIAL PERF SPECT STRESS/R(NM Detailed) CPT:85740 Reason for Study: CHEST PAIN, ASSESS SUSPECTED [...] 23, 2023 Date Verified: NOV 23, 2023 Second Language Tutor E-Sig:/ES/AGUSTO LIPSCOMB Report: PATIENT NAME: JESUS ABRAHAM CASE #: [id number], [id number], [id number], [id number], [id number] EXAMINATION: Rest/Lexiscan Stress Gated SPECT Myocardial Imaging [...] code: 1000. Dictated by Rik Dorantes MD (Matcher Operator), Rodney Smith MD (Matcher Operator) IAgusto, have reviewed the images and report and concur with these findings. Primary Interpreting Staff: AGUSTO LIPSCOMB, RADIOLOGIST (Second Language Tutor) Primary Interpreting Resident: RIK DORANTES MD, CONSULTING BUSINESS DEVELOPER /AGUSTO SEN [facility] Nov 13, 2023 04:[address] HEAD W/O CONT: JESUS ABRAHAM [id number] -[id number] M Exm Date: NOV 13, 2023@16:07 Req Phys: CYRUS EVANS Loc: [facility]-EMERGENCY DEPT 2ND SHIFT (R Img Loc: [facility]-CT IMAGING [facility] Service: Unknown [facility] [address] [address] [place] [address] (Case [id number] COMPLETE) CT HEAD W/O CONT (CT Detailed) CPT:84120 Reason for Study: confusion Clinical History: Responsible Attending: cyrus evans Attending Contact Number: [phone] Resident Contact Number: Allergies listed in CPRS chart: Patient has answered NKA Creatinine: CREATININE 1.17 mg/dL 11/13/2023 14:20 /eGFR: STL EGFR (within one year). CREATININE 1.17 mg/dL (11/13/23 14:20) Wt: 189.3 lb [85.87 kg] (10/18/2023 10:32) History of: Renal failure, chronic or acute renal disease: NO Report Status: Verified Date Reported: NOV 13, 2023 Date Verified: NOV 13, 2023 Second Language Tutor E-Sig: Report: CT HEAD W/O CONT HISTORY: [...] clinical concern, consider MRI. READING PHYSICIAN: Anjum Paola -[id number] 11/13/2023 15:14 PDT [facility] National Teleradiology Program [phone] (For Medical Practitioner Use Only) Attention Patients / Veterans: If you have questions or concerns about these test results, please contact your ordering provider or primary care team. Primary Interpreting Staff: RADIOLOGY,OUTSIDE SERVICE, Staff Physician / RADIOLOGY,OUTSIDE SERVICE [facility] Nov 13, 2023 03:59 PM CHEST X-RAY, 2 VIEWS: JESUS ABRAHAM [id number] -[id number] M Exm Date: NOV 13, 2023@15:59 Req Phys: CYRUS EVANS Loc: -EMERGENCY DEPT 2ND SHIFT (R Img Loc: -MAIN RADIOLOGY SUITE Service: [facility], [facility] [address] [place] [address] (Case [id number] COMPLETE) CHEST X-RAY, 2 VIEWS (RAD Detailed) CPT:93420 Reason for Study: chest pain Clinical History: Report Status: Verified Date Reported: NOV 13, 2023 Date Verified: NOV 13, 2023 Second Language Tutor E-Sig:/ES/AGUSTO LIPSCOMB Report: INDICATION: chest pain COMPARISON: None TECHNIQUE: Chest 2 views Impression: No large pleural effusion or sizable pneumothorax. No new focal consolidation. Unchanged cardiomediastinal silhouette. Primary Interpreting Staff: AGUSTO LIPSCOMB, RADIOLOGIST (Second Language Tutor) /AGUSTO [place] [facility] Pathology Reports: +/- 30 days of [...] PM LR MICROBIOLOGY RE PORT: Accession [UID]: [facility] [id number] [[id number]] Received: Nov 13, 2023@18:22 Collection sample: Ivon [...] --=--=--=--=--=--=-- Performing Laboratory: Bacteriology Report Performed By: [facility] HANNY [address] [place] [address]# [id number] [address] [place] [phone] [facility] Nov 13, 2023 06:05 PM LR MICROBIOLOGY RE PORT: Accession [UID]: [id number] [[id number]] Received: Nov 13, 2023@18:23 Collection sample: Ivon [...] --=--=--=--=--=--=-- Performing Laboratory: Bacteriology Report Performed By: [facility]# [id number] [address] [facility] [address] [place] [address] [facility] Encounter Notes: All associated encounter notes This section contains the clinical notes associated to the Encounter. Date/Time Encounter Note(s) Provider Source Nov 13, 2023 12:12 PM CARDIOLOGY NOTE: LOCAL TITLE: CARDIOLOGY CHART REVIEW [facility] STANDARD TITLE: CARDIOLOGY NOTE DATE OF NOTE: NOV 13, 2023@12:12 ENTRY DATE: NOV 13, 2023@12:13:03 AUTHOR: GLORIA WERNER EXP COSIGNER: URGENCY: STATUS: COMPLETED Cardiology E-consult Chart is reviewed. Received request for Echo for 88 yo Male with hx CAD with stable? angina symptoms and negative cardiac workup in ER. Evaluate for any new RWMA or change in EF Of note, patient is already scheduled for MPI stress test with comment OK to switch to lexiscan nuclear if patient unable to exercise . New stress consult is NOT required. Additional Echo is usually not required to assess any new RWMA or change in EF in additional to MPI stress. Will cancel it for now. Thank you for the opportunity to participate in his care. Please let me know if you have further questions. 8 minutes spent reviewing patient's medical records /manuel/ GLORIA WERNER MD,[facility] STAFF CLINICAL TRAINER Signed: 11/13/2023 12:16 Receipt Acknowledged By: 11/13/2023 14:49 /manuel/ MEAGHAN QUINTEROS MD STAFF PHYSICIAN GLORIA WERNER [facility]
--- OUTSIDE RECORDS SUMMARY | 2024-05-17 21:53 | XMS_ITS ---
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 Date/Time Encounter Type Encounter Description Reason Pro vider Source Nov 13, 2023 09:39 PM Inpatient Visit DAILY HOSPITALIZATION DATA HERNANDO CASTRO Encounter Template Text not used by [place] Plan of Treatment: Future Appointments (+ 6 [...] 20 appointments. The data comes from all [facility]. Appointment Date/Time Appointment Type Appointme nt [...] 11:00 AM AMBULATORY - REHAB MEDICIN E [facility] May 15, 2024 11:00 AM [...] of theEncounter. The data comes from all [facility]. Test Date/Time Test Type Test Details Facility Name Nov 13, 2023 09:10 PM Laboratory - Chemi stry Order MRSA SURVL NARES DNA NARES WC [facility] Nov 21, 2023 12:00 AM Laboratory - Chemi stry Order VITAMIN D, 25-HYDROXY GOLD/RED SST SERUM SP [facility] Nov 21, 2023 12:00 AM Laboratory - Chemi stry Order HGA1C BLOOD [facility] Lab Results: +/- 30 days [...] 14, 2023 04:23 AM Reporting Lab: [facility] [address] [facility] [address] Performing Lab: [facility] [address] [facility] [address] TSH 3.546 u[IU]/mL 0.47-5 Nov 14, 2023 05:33 AM [facility] PHOSPHOROUS Specimen Type: PLASMA Comment: No hemolysis noted. Ordering Provider: NAYLA DUNN Report Released Date/Time: Nov 14, 2023 04:23 AM Reporting Lab: [facility] [address] [facility] [address] Performing Lab: [facility] [address] [facility] [address] PHOSPHOROUS 2.9 mg/dL 2.3-4.7 Nov 14, 2023 05:33 AM [facility] MAGNESIUM Specimen Type: PLASMA Comment: No hemolysis noted. Ordering Provider: NAYLA DUNN Report Released Date/Time: Nov 14, 2023 04:23 AM Reporting Lab: [facility] [address] [facility] [address] Performing Lab: [facility] [address] [facility] [address] MAGNESIUM 2.1 mg/dL 1.6-2.6 Nov 14, 2023 05:33 AM [facility] BASIC METABOLIC PANEL Specimen Type: PLASMA Comment: No hemolysis noted. Ordering Provider: NAYLA DUNN Report Released Date/Time: Nov 14, 2023 04:23 AM Reporting Lab: [facility] [address] Performing Lab: [address] [address] CREATININE 0.78 mg/dL 0.7-1.3 UREA NITROGEN 12.0 mg/dL 9.0-25.0 GLUCOSE 83 mg/dL 72-99 SODIUM 136 meq/L 136-145 POTASSIUM 4.4 meq/L 3.5-5 CHLORIDE 103 meq/L 98-107 CARBON DIOXIDE 26 meq/L 22-31 CALCIUM 8.8 mg/dL 8.4-10.4 EGFR (CKD-EPI 2020) 86.3 >60 Nov 14, 2023 05:33 AM [facility] CBC Specimen Type: BLOOD Comment: Manual diff performed on 11/13/23 Ordering Provider: NAYLA DUNN Report Released Date/Time: Nov 14, 2023 04:23 AM Reporting Lab: [address] [address] Performing Lab: [address] [address] WBC 12.8 10*3/uL H 3.6-11.2 RBC 3.87 [...] 10*3/uL 0.00-0.20 Nov 14, 2023 01:30 AM [facility] TROPONIN I Specimen Type: PLASMA No comment entered. Ordering Provider: NAYLA UDNN Report Released Date/Time: Nov 14, 2023 01:10 AM Reporting Lab: [facility] [address] [facility] [address] Performing Lab: [facility] [address] [place] [address] TROPONIN I 0.044 ng/mL H 0-0.033 Nov [...] Nov 13, 2023 09:10 PM Reporting Lab: [facility] [address] [place] [address] Performing Lab: [address] [address] MRSA SURVL NARES DNA Negative Negative Nov 13, 2023 07:10 PM [facility] TROPONIN I Specimen Type: PLASMA No comment entered. Ordering Provider: CYRUS EVANS Report Released Date/Time: Nov 13, 2023 06:56 PM Reporting Lab: [facility] [address] [place] [address] Performing Lab: [address] [address] TROPONIN I 0.045 ng/mL H 0-0.033 Nov 13, 2023 06:20 PM [facility] BLOOD GAS PANEL ABG (STL) Specimen Type: VENOUS BLOOD Comment: Test Performed by: [id number] Meter #: [id number] Ordering Provider: CYRUS EVANS Report Released Date/Time: Nov 13, 2023 06:20 PM Reporting Lab: [facility] [address] [place] [address] Performing Lab: [address] [address] GEM PH 7.38 7.31-7.41 GEM PCO2 52 [...] 06:15 PM [facility] COVID-19 DIAGNOSTIC (FLU/RSV)([facility]) Specimen Type: NASOPHARYNX Comment: Qualitative real-time PCR [...] Nov 13, 2023 03:21 PM Reporting Lab: [address] [address] Performing Lab: [facility] [address] [facility] [address] INFLUENZA A Negative Negative INFLUENZA B Negative Negative COVID-19 (L-PB) Not Detected Not Detected RSV (Cepheid) NEGATIVE Negative Nov 13, 2023 06:00 PM [facility] PT/INR NEW (L-MA) Specimen Type: PLASMA No comment entered. Ordering Provider: CYRUS EVANS Report Released Date/Time: Nov 13, 2023 03:21 PM Reporting Lab: [facility] [address] [facility] [address] Performing Lab: [address] [address] PROTIME 12.7 s H 9.4-12.5 INR VALUE 1.1 {INR} Nov 13, 2023 06:00 PM [facility] APTT Specimen Type: PLASMA No comment entered. Ordering Provider: CYRUS EVANS Report Released Date/Time: Nov 13, 2023 03:21 PM Reporting Lab: [facility] [address] [facility] [address] Performing Lab: [address] [address] APTT 33.7 s 26.7-39.9 Nov 13, 2023 04:59 PM [facility] URINALYSIS W/ CX REFLEX ([facility]-PB) Specimen Type: URINE No comment entered. Ordering Provider: CYRUS EVANS Report Released Date/Time: Nov 13, 2023 03:12 PM Reporting Lab: [facility] [address] [facility] [address] Performing Lab: [address] [address] URINE COLOR Yellow Yellow U.BILIRUBIN Negative mg/dL [...] Nov 13, 2023 02:14 PM Reporting Lab: [address] [address] Performing Lab: [address] [address] TROPONIN I 0.044 ng/mL H 0-0.033 Nov 13, 2023 02:20 PM [facility] COMPREHENSIVE METABOLIC PANEL Specimen Type: PLASMA Comment: No hemolysis noted. Ordering Provider: CYRUS EVANS Report Released Date/Time: Nov 13, 2023 02:14 PM Reporting Lab: [address] [address] Performing Lab: [address] [address] CREATININE 1.17 mg/dL 0.7-1.3 UREA NITROGEN 12.7 [...] >60 Nov 13, 2023 02:20 PM [facility] CBC Specimen Type: BLOOD No comment entered. Ordering Provider: CYRUS EVANS Report Released Date/Time: Nov 13, 2023 02:14 PM Reporting Lab: [facility] [address] [facility] [address] Performing Lab: [facility] [address] [facility] [address] WBC 12.5 10*3/uL H 3.6-11.2 RBC 4.21 [...] Nov 13, 2023 11:20 PM 0 [facility] Nov 13, 2023 10:29 PM 3 [facility] Nov 13, 2023 09:10 PM 97 68 172/77 18 97 0 188.4 25 [facility] Nov 13, 2023 08:02 PM 71 164/84 18 [facility] Nov 13, 2023 02:07 PM 98.7 77 122/69 14 97 [facility] Social History: Smoking Status [...] [facility] Aug 25, [...] Oct 19, 2023 ADVANCE DIRECTIVE WANG MURILLOE [facility] Dec 12, 2022 RESCINDED ADVANCE DIRECTIVE JITENDRA MEADOWS [facility] September 12, 2016 ADVANCE DIRECTIVE DISCUSSION YVETTE MEADOWS [facility] Radiology Reports: +/- 30 [...] NM MYOCARDIAL P SPECT STRESS/REST-P: JESUS ABRAHAM [id number] -1935 M Exm Date: NOV 23, 2023@09:03 Req Phys: MEAGHAN QUINTEROS Loc: -PC TM-C SAME DAY CLINIC (Re Img Loc: -NUCLEAR MEDICINE Service: [address] [address] (Case [id number] COMPLETE) NM MYOCARDIAL PERF SPECT STRESS/R(NM Detailed) CPT:54785 Reason for Study: CHEST PAIN, ASSESS SUSPECTED [...] 23, 2023 Date Verified: NOV 23, 2023 Public Relations Writer E-Sig:/ES/AGUSTO LIPSCOMB Report: PATIENT NAME: JESUS ABRAHAM CASE #: [id number], [id number], [id number], [id number], [id number] EXAMINATION: Rest/Lexiscan Stress Gated SPECT Myocardial Imaging [...] code: 1000. Dictated by Rik Dorantes MD (Line Department Supervisor), Rodney Smith MD (Line Department Supervisor) IAgusto, have reviewed the images and report and concur with these findings. Primary Interpreting Staff: AGUSTO LIPSCOMB, RADIOLOGIST (Public Relations Writer) Primary Interpreting Resident: RIK DORANTES MD, [facility] STEWARD /AGUSTO SEN [facility] Nov 13, 2023 04:[address] HEAD W/O CONT: JESUS ABRAHAM [id number] -1935 M Exm Date: NOV 13, 2023@16:07 Req Phys: CYRUS EVANS Pat Loc: [facility]-EMERGENCY DEPT 2ND SHIFT (R Img Loc: [facility]-CT IMAGING [facility] Service: Unknown [facility], [facility] [address] [place] [address] (Case [id number] COMPLETE) CT HEAD W/O CONT (CT Detailed) CPT:46845 Reason for Study: confusion Clinical History: Responsible Attending: cyrus evans Attending Contact Number: [phone] Resident Contact Number: Allergies listed in CPRS chart: Patient has answered NKA Creatinine: CREATININE 1.17 mg/dL 11/13/2023 14:20 /eGFR: STL EGFR (within one year). CREATININE 1.17 mg/dL (11/13/23 14:20) Wt: 189.3 lb [85.87 kg] (10/18/2023 10:32) History of: Renal failure, chronic or acute renal disease: NO Report Status: Verified Date Reported: NOV 13, 2023 Date Verified: NOV 13, 2023 Public Relations Writer E-Sig: Report: CT HEAD W/O CONT HISTORY: [...] clinical concern, consider MRI. READING PHYSICIAN: Anjum [id number] 11/13/2023 15:14 PDT [facility] National Teleradiology Program [phone] (For Medical Practitioner Use Only) Attention Patients / Veterans: If you have questions or concerns about these test results, please contact your ordering provider or primary care team. Primary Interpreting Staff: RADIOLOGY,OUTSIDE SERVICE, Staff Physician / RADIOLOGY,OUTSIDE SERVICE [facility] Nov 13, 2023 03:59 PM CHEST X-RAY, 2 VIEWS: JESUS ABRAHAM [id number] -1935 M Exm Date: NOV 13, 2023@15:59 Req Phys: CYRUS EVANS Pat Loc: -EMERGENCY DEPT 2ND SHIFT (R Img Loc: -MAIN RADIOLOGY SUITE Service: [facility], [facility] [address] [place] [address] (Case [id number] COMPLETE) CHEST X-RAY, 2 VIEWS (RAD Detailed) CPT:48319 Reason for Study: chest pain Clinical History: Report Status: Verified Date Reported: NOV 13, 2023 Date Verified: NOV 13, 2023 Public Relations Writer E-Sig:/ES/AGUSTO LIPSCOMB Report: INDICATION: chest pain COMPARISON: None TECHNIQUE: Chest 2 views Impression: No large pleural effusion or sizable pneumothorax. No new focal consolidation. Unchanged cardiomediastinal silhouette. Primary Interpreting Staff: AGUSTO LIPSCOMB, RADIOLOGIST (Public Relations Writer) /AGUSTO [place]OVER [facility] Pathology Reports: +/- 30 days [...] RE PORT: Accession [UID]: [id number] [[id number]] Received: Nov 13, 2023@18:22 Collection sample: B [...] --=--=--=--=--=--=-- Performing Laboratory: Bacteriology Report [facility] By: [facility] [address] [place] [address]# [id number] 5 [facility] [address] [place] [address] [facility] Nov 13, 2023 06:05 PM LR MICROBIOLOGY RE PORT: Accession [UID]: [id number] [[id number]] Received: Nov 13, 2023@18:23 Collection sample: B D BLD. BOTTLE Collection date: Nov 13, 2023 18:05 Site/Specimen: BLOOD Provider: CYRUS EVANS Test(s) ordered: BLOOD CULT (SET 1)............ completed: Nov 20, 2023 16:20 * BACTERIOLOGY FINAL REPORT => Nov 20, 2023 16:24 TECH CODE: [id number] Bacteriology Remark(s): CULTURE IS NEGATIVE TO DATE, ALL POSITIVES ARE ROUTINELY CALLED. [facility] PW 11/20/23 CULTURE SHOWS NO GROWTH IN 6 DAYS. =--=--=--=--=--=--=--=--=--=- -=--=--=--=--=--=--=--=--=--= --=--=--=--=--=--=-- Performing Laboratory: Bacteriology Report Performed By: DE HANNY LOMBARDO [address] [facility]# [id number] [address] [facility] [address] [place] [address] [facility]
--- OUTSIDE RECORDS SUMMARY | 2024-05-17 21:53 | XMS_ITS ---
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 Date/Time Encounter Type Encounter Description Reason Provider Source October 12, 2023 10:20 AM OFFICE O/P EST MOD 30 MIN PRIMARY CARE/MEDICINE ICD-10-CM H81.399 Other peripheral vertigo, unspecified ear ABDOUL BURGOS IHO[facility] Encounter Template Text not used by [place] Assessments - Encounter Diagnoses This section includes the primary and secondary diagnoses documented for the Encounter. Date/Time Primary/Secondary Diagnosis Diagnosis Name Provider Source Oct 15, 2023 08:24 AM PRIMARY Other peripheral vertigo, unspecified ear ABDOUL BURGOS [facility] Oct 15, 2023 08:24 AM SECONDARY Chest pain, unspecified ABDOUL BURGOS [facility] Plan of Treatment: Future Appointments (+ 6 months) and Future Tests (+/- 45 days) The Plan of Treatment section includes future care activities for the patient from [facility] [place] [facility] This section includes future appointments and future orders which are active, pending or scheduled. Future Appointments This section includes appointments that were scheduled to occur 6 months from the date of the Encounter, up to a maximum of 20 appointments. The data comes from all [facility]. Appointment Date/Time Appointment Type Appointme nt Facility Name Oct 15, 2023 02:00 PM AMBULATORY - SURGERY [facility] Oct 18, 2023 10:20 AM AMBULATORY - MEDICINE [facility] Nov 13, 2023 02:03 PM AMBULATORY - MEDICINE [facility] Nov 23, 2023 09:00 AM AMBULATORY - MEDICINE [facility] Nov 23, 2023 10:00 AM AMBULATORY - MEDICINE [facility] Nov 23, 2023 11:30 AM AMBULATORY - MEDICINE [facility] Dec 24, 2023 02:45 PM AMBULATORY - SURGERY [facility] Jan 01, 2024 02:00 PM AMBULATORY - REHAB MEDICIN E [facility] Feb 29, 2024 01:30 PM AMBULATORY - MEDICINE [facility] Mar 03, 2024 09:15 AM AMBULATORY - MEDICINE [facility] Mar 08, 2024 01:30 PM AMBULATORY - MEDICINE [facility] Mar 10, 2024 12:45 PM AMBULATORY - SURGERY [facility] Active, Pending, and Scheduled Orders This section includes a listing of several types of active, pending, and scheduled orders, including clinic medications orders, diagnostic test orders, procedure orders and consult orders; where the start date of the order is 45 days before the date of the Encounter or 45 days after the date of theEncounter. The data comes from all [facility]. Test Date/Time Test Type Test Details Facility Name Nov 13, 2023 09:10 PM Laboratory - Chemi stry Order MRSA SURVL NARES DNA NARES WC [facility] Nov 21, 2023 12:00 AM Laboratory - Chemi stry Order HGA1C BLOOD SP [facility] Nov 21, 2023 12:00 AM Laboratory - Chemi stry Order VITAMIN D, 25-HYDROXY GOLD/RED SST SERUM SP [facility] Vital Signs: All taken on the encounter date This section contains inpatient and outpatient Vital Signs collected on the date of the Encounter. Date/Time Temperature Pulse Blood Pressure Respiratory Rate SP02 Pain Height Weight Body Mass Index Source October 12, 2023 10:26 AM 98.2 98 143/71 18 98 0 190.7 25 [facility] Social History: Smoking Status [...] Facil ity Aug 04, 2022 11:30 AM [place]-TOBACCO NEVER USED [facility] Tobacco Use History This section includes a history of the smoking, or tobacco-related health factors, that were collected on or before the date of the Encounter. The data comes from the [place] facility where the Encounter took place. Date/Time Smoking Status/Tobacco Use Comment F acility Mar 11, 2021 10:30 AM [place]-TOBACCO FORMER USER [facility] Mar 11, 2021 10:30 AM [place]-TOBACCO QUIT 15 YRS OR MORE [facility] Apr 19, 2018 09:07 AM [place]-TOBACCO FORMER USER [facility] Apr 19, 2018 09:07 AM [place]-TOBACCO QUIT 15 YRS OR MORE [facility] Jul 24, 2017 08:16 AM QUIT TOBACCO >7 YEARS AGO [facility] Apr 16, 2017 12:43 PM QUIT TOBACCO >7 YEARS AGO [facility] Feb 01, 2017 11:47 AM LIFETIME NON-USER OF TOBACCO [facility] Nov 15, 2016 09:00 AM QUIT TOBACCO >7 YEARS AGO [facility] September 11, 2016 06:27 PM QUIT TOBACCO >7 YEARS AGO [facility] Dec 09, 2015 10:17 AM QUIT TOBACCO >7 YEARS AGO [facility] Jan 05, 2015 08:22 AM CURRENT TOBACCO USER [facility] Jan 05, 2015 08:22 AM TOBACCO MEDS OFFER ED BUT DECLINED [facility] Mar 18, 2014 10:40 AM CURRENT TOBACCO USER [facility] Mar 18, 2014 10:40 AM TOBACCO MEDS OFFER ED BUT DECLINED [facility] Nov 04, 2013 09:40 AM CURRENT TOBACCO USER [facility] Nov 26, 2012 08:10 AM QUIT TOBACCO >7 YEARS AGO [facility] May 03, 2009 08:45 AM QUIT TOBACCO >7 YEARS AGO [facility] Jul 06, 2008 08:46 AM CURRENT TOBACCO USER [facility] Jul 25, 2007 12:30 PM QUIT TOBACCO >12 M O & <7 YRS AGO [facility] Jun 07, 2006 09:21 AM CURRENT TOBACCO USER [facility] Jun 07, 2006 09:21 [facility] Aug 25, 2005 11:01 AM CURRENT TOBACCO USER [facility] Aug 25, 2005 11:01 AM TOBACCO CONTEMPLATION STAGE [facility] Oct 25, 2004 10:18 AM CURRENT NON-TOBACC O USER-HX OF USE [facility] Oct 25, 2004 10:18 AM TOBACCO TERMINATION STAGE [facility] Aug 24, 2003 10:43 AM CURRENT NON-TOBACC O USER-HX OF USE [facility] Aug 24, 2003 10:43 AM TOBACCO TERMINATION STAGE [facility] Aug 05, 2002 09:55 AM CURRENT NON-TOBACC O USER-HX OF USE QUIT [id number] [facility] Apr 15, 2001 08:28 AM CURRENT NON-TOBACC O USER-HX OF USE quit in 1979 [facility] Advance Directives: All historical and current [...] Oct 19, 2023 ADVANCE DIRECTIVE LIDIAWANGBRIDGER [facility] Dec 12, 2022 RESCINDED ADVANCE DIRECTIVE JITENDRA MEADOWS [facility] September 12, 2016 ADVANCE DIRECTIVE DISCUSSION YVETTE MEADOWS [facility] Encounter Notes: All associated encounter notes This section contains the clinical notes associated to the Encounter. Date/Time Encounter Note(s) Provider Source October 12, 2023 12:12 PM PRIMARY CARE NOTE: LOCAL TITLE: PRIMARY CARE PROVIDER ESTABLISHED VISIT [facility] STANDARD TITLE: PRIMARY CARE NOTE DATE OF NOTE: OCTOBER 12, 2023@12:12 ENTRY DATE: OCTOBER 12, 2023@12:12:15 AUTHOR: CHESTER MOSER EXP COSIGNER: ABDOUL BURGOS URGENCY: STATUS: COMPLETED PRIMARY CARE PROVIDER ESTABLISHED VISIT [facility] Has ADDENDA ESTABLISHED PATIENT [id number]: REASON FOR VISIT/CHIEF COMPLAINT: Lightheadedness and chest pain HPI: Patient is a 88 y/o M with a PMH of DM, HLD, HTN, CAD, and macular degeneration who presents with lightheadedness and chest pain. Patient reports a history of vertigo for which he takes meclizine but has not been able to take the medication for about a month now due to not having a refill. The lightheadedness occurs when getting up from sitting and is described as feeling liek his head is spinning. He has a headache that has been occuring for the past few weeks as well that occurs two to three times a week. The chest pain has been occuring for a couple months and is on the right side of his chest. The pain does not radiate and is characterized as a dull ache that occurs during exertion. Tylenol helps alleviate the pain. PAST MEDICAL HISTORY: 1) Coronary artery disease (SNOMED CT 73914774) 2) Hyperlipidaemia (SNOMED CT 85287281) 3) Allergic rhinitis * (ICD-9-CM 477.9) 4) Carcinoma, Basal Cell 5) Osteoarthritis of knee (SNOMED CT 447369640) 6) Age related macular degeneration (SNOMED CT 208798281) 7) Colonic Polyps 8) Diabetes Mellitus without mention of Complication, type II or unspecified type, 9) Benign essential hypertension (SNOMED CT 0403602) 10) Pain in joint involving shoulder region [...] 780.79) 19) History/Skin/CA 20) Dermatitis (SNOMED CT 771901802) 21) Dry skin (SNOMED CT 86243931) 22) Chest pain 23) Exudative age-related macular degeneration 24) Hyperlipidemia 25) Diabetes mellitus 26) Insomnia 27) Osteoarthritis of knee ALLERGIES: Patient has answered NKA ALLERGY REVIEW: Allergy list reviewed and remains current. 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 Handwritten corrections, additions and/or deletions were made to the list. Corrected Outpatient Medication List was provided to the patient/caregiver. Active Outpatient Medications (including Supplies): Active Outpatient [...] ACTIVE MOUTH EVERY EVENING TO LOWER CHOLESTEROL 6) SODIUM CHLORIDE 0.65% SOLN NASAL SPRAY USE 2 SPRAYS ACTIVE INTO NOSTRIL(S) EVERY 4 HOURS NEEDED FOR NASAL CONGESTION Active Non-VA Medications Status 1) Non-VA ASPIRIN 81MG EC TAB 81MG BY MOUTH ONCE A DAY ACTIVE 2) Non-VA MULTIVITAMIN/OPHTH ANTIOX/LUTEIN CAP/TAB 1 ACTIVE CAP/TAB BY MOUTH ONCE A DAY 8 Total Medications REVIEW OF SYSTEMS: General: Normal Ears, Nose, Mouth, Throat: Comment: lightheadedness that has been occuring for the past two to three weeks. Cardiovascular: Chest pain Respiratory: Cough ABD/GI: Normal Musculoskeletal/Extremities : Comment: chronic knee pain PHYSICAL EXAMINATION: Male General appearance: VITALS (most recent, as listed in the electronic record): B/P: 143/71 (10/12/2023 10:26) Pulse: 98 (10/12/2023 10:26) Temperature: 98.2 F [36.8 C] (10/12/2023 10:26) Weight: 190.7 lb [86.50 kg] (10/12/2023 10:26) Height: 73 in [185.4 cm] (05/18/2023 10:28) BMI: 25.2 Pain: 0 (10/12/2023 10:26) (0-10 scale) Cardiovascular: RRR, no m/r/g Respiratory: Crackles noted on lower lung morales. ABD/GI: NT/ND, normoactive bowel sounds ASSESSMENT/PLAN: #Lightheadedness Patient has a history of vertigo for whihc he takes meclizine. The lightheadedness has been getting worse over the past few weeks but is alleviated by meclizine. PLAN: - Refill meclizine prescription. [facility] and return to clinic if symptoms worsen. #Chest Pain Patient reports chest pain on the right side that has been occuring for a few months during exertion. Previous history of CAD and normal echo in 2021. PLAN: - Schedule stress test THE SUPERVISING PHYSICIAN FOR THIS PATIENT ENCOUNTER IS DR. Abdoul Burgos /manuel/ CHESTER MOSER Medical Student Signed: 10/12/2023 12:21 /manuel/ ABDOUL BURGOS MD PhD STAFF PHYSICIAN Cosigned: 10/15/2023 08:24 10/15/2023 ADDENDUM STATUS: COMPLETED The was seen, examined, and discussed at length with the medical student. Relevant labs, imaging studies, and past medical records were reviewed. With regards to the lightheadedness, it's unclear from the patient's history whether this represents vertigo. Family reports a description that is more consitent with vertigo, and the states that this has been helped in the past with meclizine. We discussed the risks of meclizine at length, and ultimately opted for a trial of the medication before proceeding further with diagnostic testing. The reports some vague symptoms of chest pain and he has difficulty providing specifics. The pain seems to be related to exertion. As a result, will obtain a stress test. No active chest pain at this time. /manuel/ ABDOUL BURGOS MD PhD STAFF PHYSICIAN Signed: 10/15/2023 08:26 CHESTER MOSER [facility] October 12, 2023 10:28 AM NURSING NOTE: LOCAL TITLE: V15 PACT FACE TO FACE NOTE ST[facility] STANDARD TITLE: NURSING NOTE DATE OF NOTE: OCTOBER 12, 2023@10:28 ENTRY DATE: OCTOBER 12, 2023@10:28:37 AUTHOR: ERIBERTO BROWN EXP COSIGNER: URGENCY: STATUS: COMPLETED Provider Visit: Patient Identifiers : Full Name Date of Reason for visit: Other: family feel like has an increase confusion, disoriented at times vision off and dizzy spells at times Mode of Arrival: Ambulatory Allergy Review: Patient has answered NKA Allergy list reviewed and remains current. Recent Vital Signs: Temperature: 98.2 F [36.8 C] (10/12/2023 10:26) Pulse: 98 (10/12/2023 10:26) Respiration: 18 (10/12/2023 10:) B/P: 143/71 (10/12/2023 10:) Pain: 0 (10/12/2023 10:) Wt: 190.7 lb [86.50 kg] (10/12/2023 10:) Ht: 73 in [185.4 cm] (05/18/2023 10:28) BMI: 25.2 POX: 98% (10/12/2023 10:) Would you like to discuss any personal problem, family problem, alcohol use, drug use, or a mental or emotional illness? No [facility]), please select appointment type: Face to face: No- Are you interested in getting this done? No Contact provided Primary Care phone number and encouraged to call if any questions or concerns. Review that after hours nurse line [phone] and emergency room are available 04/12 for patient use. Contact verbalized good understanding. /manuel/ ERIBERTO BROWN LPN LICENSED PRACTICAL NURSE Signed: 10/12/2023 10:34 ERIBERTO BROWN [facility]
--- OUTSIDE RECORDS SUMMARY | 2024-05-17 21:53 | XMS_ITS | Encounter Summary ---
Author Name [facility] [place] Organization [facility] [place] Address [address] [place] [address] Care Team Providers Care Central Office Mechanic Name Role Phone MEAGHAN QUINTEROS Primary [...] PART B Aug 12, 2001 PART B [id number] [phone] JESUS ABRAHAM PATIENT MEDICARE (WNR) MEDICARE (M) PART A Aug 12, 2001 PART A [id number] [phone] JESUS ABRAHAM PATIENT Selected Encounter This section includes the information on record at [place] for the Encounter. Date/Time Encounter Type Encounter Description Reason Pro vider Source Nov 13, 2023 02:14 PM Outpatient Encounter EMERGENCY DEPT IHE Encounter Template Text not used by [place] [...] 20 appointments. The data comes from all [facility]. Appointment Date/Time Appointment Type Appointme nt Facility Name Nov 23, 2023 09:00 AM AMBULATORY - MEDICINE [facility] Nov 23, 2023 10:00 AM AMBULATORY MEDICINE [facility] Nov 23, 2023 11:30 AM AMBULATORY - MEDICINE [facility] Dec 24, 2023 02:45 PM AMBULATORY - SURGERY [facility] Jan 01, 2024 02:00 PM AMBULATORY - REHAB MEDICIN E [facility] Feb 29, 2024 01:30 PM AMBULATORY - MEDICINE [facility] Mar 03, 2024 09:15 AM AMBULATORY - MEDICINE [facility] Mar 08, 2024 01:30 PM AMBULATORY - MEDICINE [facility] Mar 10, 2024 12:45 PM AMBULATORY - SURGERY [facility] Apr 16, 2024 11:00 AM AMBULATORY - REHAB MEDICIN E [facility] May 15, 2024 11:00 AM AMBULATORY - SURGERY [facility] Active, Pending, and Scheduled Orders This section includes a listing of several types of active, pending, and scheduled orders, including clinic medications orders, diagnostic test orders, procedure orders and consult orders; where the start date of the order is 45 days before the date of the Encounter or 45 days after the date of theEncounter. The data comes from all [facility]. Test Date/Time Test Type Test Details Facility Name Nov 13, 2023 09:10 PM Laboratory - Chemi stry Order MRSA SURVL NARES DNA NARES WC [facility] Nov 21, 2023 12:00 AM Laboratory - Chemi stry Order HGA1C BLOOD SP [facility] Nov 21, 2023 12:00 AM Laboratory - Chemi stry Order VITAMIN D, 25-HYDROXY GOLD/RED SST SERUM SP [facility] Lab Results: +/- 30 days of the [...] Range Comment Nov 14, 2023 05:33 AM [facility] TSH W/ REFLEX FT4 (STL) Specimen Type: PLASMA No comment entered. Ordering Provider: NAYLA DUNN Report Released Date/Time: Nov 14, 2023 04:23 AM Reporting Lab: [facility] [address] [facility] [address] Performing Lab: [facility] [address] [address] TSH 3.546 u[IU]/mL 0.47-5 Nov 14, 2023 05:33 AM [facility] PHOSPHOROUS Specimen Type: PLASMA Comment: No hemolysis noted. Ordering Provider: NAYLA DUNN Report Released Date/Time: Nov 14, 2023 04:23 AM Reporting Lab: [facility] [address] [facility] [address] Performing Lab: [facility] [address] [facility] [address] PHOSPHOROUS 2.9 mg/dL 2.3-4.7 Nov 14, 2023 05:33 AM [facility] MAGNESIUM Specimen Type: PLASMA Comment: No hemolysis noted. Ordering Provider: NAYLA DUNN Report Released Date/Time: Nov 14, 2023 04:23 AM Reporting Lab: [facility] [address] [facility] [address] Performing Lab: [facility] [address] [facility] [address] MAGNESIUM 2.1 mg/dL 1.6-2.6 Nov 14, 2023 05:33 AM [facility] BASIC METABOLIC PANEL Specimen Type: PLASMA Comment: No hemolysis noted. Ordering Provider: NAYLA DUNN Report Released Date/Time: Nov 14, 2023 04:23 AM Reporting Lab: [facility] [address] [facility] [address] Performing Lab: [address] [address] CREATININE 0.78 mg/dL 0.7-1.3 UREA NITROGEN 12.0 mg/dL 9.0-25.0 GLUCOSE 83 mg/dL 72-99 SODIUM 136 meq/L 136-145 POTASSIUM 4.4 meq/L 3.5-5 CHLORIDE 103 meq/L 98-107 CARBON DIOXIDE 26 meq/L 22-31 CALCIUM 8.8 mg/dL 8.4-10.4 EGFR (CKD-EPI 2020) 86.3 >60 Nov 14, 2023 05:33 AM [facility] CBC Specimen Type: BLOOD Comment: Manual diff performed on 11/13/23 Ordering Provider: NAYLA DUNN Report Released Date/Time: Nov 14, 2023 04:23 AM Reporting Lab: [address] [address] Performing Lab: [address] [address] WBC 12.8 10*3/uL H 3.6-11.2 RBC 3.87 [...] 10*3/uL 0.00-0.20 Nov 14, 2023 01:30 AM [facility] TROPONIN I Specimen Type: PLASMA No comment entered. Ordering Provider: NAYLA DUNN Report Released Date/Time: Nov 14, 2023 01:10 AM Reporting Lab: [facility] [address] [facility] [address] Performing Lab: [facility] [address] [place] [address] TROPONIN I 0.044 ng/mL H 0-0.033 Nov 13, 2023 10:00 PM [facility] MRSA SURVL NARES DNA Specimen Type: NARES [...] epidemiological information for final interpretation. Ordering Provider: NALYA DUNN Report Released Date/Time: Nov 13, 2023 09:10 PM Reporting Lab: [facility] [address] [place] [address] Performing Lab: [address] [address] MRSA SURVL NARES DNA Negative Negative Nov 13, 2023 07:10 PM [facility] TROPONIN I Specimen Type: PLASMA No comment entered. Ordering Provider: CYRUS EVANS Report Released Date/Time: Nov 13, 2023 06:56 PM Reporting Lab: [address] [address] Performing Lab: [address] [address] TROPONIN I 0.045 ng/mL H 0-0.033 Nov 13, 2023 06:20 PM [facility] BLOOD GAS PANEL ABG (STL) Specimen Type: VENOUS BLOOD Comment: Test Performed by: [id number] Meter #: [id number] Ordering Provider: CYRUS EVANS Report Released Date/Time: Nov 13, 2023 06:20 PM Reporting Lab: [address] [address] Performing Lab: [address] [address] GEM PH 7.38 7.31-7.41 GEM PCO2 52 [...] TEMP 37.0 Nov 13, 2023 06:15 PM [facility] COVID-19 DIAGNOSTIC (FLU/RSV)(STL) Specimen Type: NASOPHARYNX Comment: [...] 13, 2023 03:21 PM Reporting Lab: [address] [address] Performing Lab: [place] [id number] [facility] [address] INFLUENZA A Negative Negative INFLUENZA B Negative Negative COVID-19 ([facility]) Not Detected Not Detected RSV (Cepheid) NEGATIVE Negative Nov 13, 2023 06:00 PM [facility] APTT Specimen Type: PLASMA No comment entered. Ordering Provider: CYRUS EVANS Report Released Date/Time: Nov 13, 2023 03:21 PM Reporting Lab: [address] [address] Performing Lab: [address] [address] APTT 33.7 s 26.7-39.9 Nov 13, 2023 06:00 PM [facility] PT/INR NEW ([facility]) Specimen Type: PLASMA No comment entered. Ordering Provider: CYRUS EVANS Report Released Date/Time: Nov 13, 2023 03:21 PM Reporting Lab: [place] [address] [facility] [address] Performing Lab: [address] [address] PROTIME 12.7 s H 9.4-12.5 INR VALUE 1.1 {INR} Nov 13, 2023 04:59 PM [facility] URINALYSIS W/ CX REFLEX ([facility]) Specimen Type: URINE No comment entered. Ordering Provider: CYRUS EVANS Report Released Date/Time: Nov 13, 2023 03:12 PM Reporting Lab: [address] [address] Performing Lab: [address] [address] URINE COLOR Yellow Yellow U.BILIRUBIN Negative mg/dL [...] 1.005-1.02 9 Nov 13, 2023 02:20 PM [facility] TROPONIN I Specimen Type: PLASMA Comment: No hemolysis noted. Ordering Provider: CYRUS EVANS Report Released Date/Time: Nov 13, 2023 02:14 PM Reporting Lab: [address] [address] Performing Lab: [address] [address] TROPONIN I 0.044 ng/mL H 0-0.033 Nov 13, 2023 02:20 PM [facility] COMPREHENSIVE METABOLIC PANEL Specimen Type: PLASMA Comment: No hemolysis noted. Ordering Provider: CYRUS EVANS Report Released Date/Time: Nov 13, 2023 02:14 PM Reporting Lab: [address] [address] Performing Lab: [address] [address] CREATININE 1.17 mg/dL 0.7-1.3 UREA NITROGEN 12.7 [...] 60.3 >60 Nov 13, 2023 02:20 PM [facility] CBC Specimen Type: BLOOD No comment entered. Ordering Provider: CYRUS EVANS Report Released Date/Time: Nov 13, 2023 02:14 PM Reporting Lab: [facility] [address] [facility] [address] Performing Lab: [facility] [address] [facility] [address] WBC 12.5 10*3/uL H 3.6-11.2 RBC 4.21 [...] Nov 13, 2023 11:20 PM 0 [facility] Nov 13, 2023 10:29 PM 3 [facility] Nov 13, 2023 09:10 PM 97 68 172/77 18 97 0 188.4 25 [facility] Nov 13, 2023 08:02 PM 71 164/84 18 [facility] Nov 13, 2023 02:07 PM 98.7 77 122/69 14 97 [facility] Social History: Smoking Status [...] 2022 11:30 AM VA-TOBACCO NEVER USED [facility] Tobacco Use History This section includes a history of the smoking, or tobacco-related health factors, that were collected on or before the date of the Encounter. The data comes from the [place] facility where the Encounter took place. Date/Time Smoking Status/Tobacco Use Comment F acility Mar 11, 2021 10:30 AM VA-TOBACCO FORMER USER [facility] Mar 11, 2021 10:30 AM VA-TOBACCO QUIT 15 YRS OR MORE [facility] Apr 19, 2018 09:07 AM VA-TOBACCO FORMER USER [facility] Apr 19, 2018 09:07 AM VA-TOBACCO QUIT 15 YRS OR MORE [facility] Jul 24, 2017 08:16 AM QUIT TOBACCO >7 YEARS AGO [facility] Apr 16, 2017 12:43 PM QUIT TOBACCO >7 YEARS AGO [facility] Feb 01, 2017 11:47 AM LIFETIME NON-USER OF TOBACCO [facility] Nov 15, 2016 09:00 AM QUIT TOBACCO >7 YEARS AGO [facility] September 11, 2016 06:27 PM QUIT TOBACCO >7 YEARS AGO [facility] Dec 09, 2015 10:17 AM QUIT TOBACCO >7 YEARS AGO [facility] Jan 05, 2015 08:22 AM CURRENT TOBACCO USER [facility] Jan 05, 2015 08:22 AM TOBACCO MEDS OFFER ED BUT DECLINED [facility] Mar 18, 2014 10:40 AM CURRENT TOBACCO USER [facility] Mar 18, 2014 10:40 AM TOBACCO MEDS OFFER ED BUT DECLINED [facility] Nov 04, 2013 09:40 AM CURRENT TOBACCO USER [facility] Nov 26, 2012 08:10 AM QUIT TOBACCO >7 YEARS AGO [facility] May 03, 2009 08:45 AM QUIT TOBACCO >7 YEARS AGO [facility] Jul 06, 2008 08:46 AM CURRENT TOBACCO USER [facility] Jul 25, 2007 12:30 PM QUIT TOBACCO >12 M O & <7 YRS AGO [facility] Jun 07, 2006 09:21 AM CURRENT TOBACCO USER [facility] Jun 07, 2006 09:21 [facility] Aug 25, 2005 11:01 AM CURRENT TOBACCO USER [facility] Aug 25, 2005 11:01 AM TOBACCO CONTEMPLATION STAGE [facility] Oct 25, 2004 10:18 AM CURRENT NON-TOBACC O USER-HX OF USE [facility] Oct 25, 2004 10:18 AM TOBACCO TERMINATION STAGE [facility] Aug 24, 2003 10:43 AM CURRENT NON-TOBACC O USER-HX OF USE [facility] Aug 24, 2003 10:43 AM TOBACCO TERMINATION STAGE [facility] Aug 05, 2002 09:55 AM CURRENT NON-TOBACC O USER-HX OF USE QUIT [facility] Apr 15, 2001 08:28 AM CURRENT NON-TOBACC O USER-HX OF USE quit in 1979 [facility] Advance Directives: All historical and current Section [...] Oct 19, 2023 ADVANCE DIRECTIVE WANG MURILLO [facility] Dec 12, 2022 RESCINDED ADVANCE DIRECTIVE JITENDRA MEADOWS [facility] September 12, 2016 ADVANCE DIRECTIVE DISCUSSION YVETTE MEADOWS [facility] Radiology Reports: +/- 30 days of [...] NM MYOCARDIAL P SPECT STRESS/REST-P: JESUS ABRAHAM [id number] -1935 M Exm Date: NOV 23, 2023@09:03 Req Phys: MEAGHAN QUINTEROS Loc: -PC TM-C SAME DAY CLINIC (Re Img Loc: -NUCLEAR MEDICINE Service: Unknown [facility] [address] [place] [address] (Case [id number] COMPLETE) NM MYOCARDIAL PERF SPECT STRESS/R(NM Detailed) CPT:66346 Reason for Study: CHEST PAIN, ASSESS SUSPECTED [...] 23, 2023 Date Verified: NOV 23, 2023 Boarding Machine Operator E-Sig:/ES/AGUSTO LIPSCOMB Report: PATIENT NAME: JESUS ABRAHAM CASE #: [id number], [id number], [id number], [id number], [id number] EXAMINATION: Rest/Lexiscan Stress Gated SPECT Myocardial Imaging [...] code: 1000. Dictated by Rik Dorantes MD (Mechanical Ordnance Assembler), Rodney Smith MD (Mechanical Ordnance Assembler) IAgusto, have reviewed the images and report and concur with these findings. Primary Interpreting Staff: AGUSTO LIPSCOMB, RADIOLOGIST (Boarding Machine Operator) Primary Interpreting Resident: RIK DORNATES MD, RAILROADER /AGUSTO SEN [facility] Nov 13, 2023 04:[address] HEAD W/O CONT: JESUS ABRAHAM [id number] -[id number] M Exm Date: NOV 13, 2023@16:07 Req Phys: CYRUS EVANS Loc: HAL-EMERGENCY DEPT 2ND SHIFT (R Img Loc: HAL-CT IMAGING [facility] Service: Unknown [facility], [facility] [address] [place] [address] (Case [id number] COMPLETE) CT HEAD W/O CONT (CT Detailed) CPT:76266 Reason for Study: confusion Clinical History: Responsible Attending: cyrus evans Attending Contact Number: [phone] Resident Contact Number: Allergies listed in CPRS chart: Patient has answered NKA Creatinine: CREATININE 1.17 mg/dL 11/13/2023 14:20 /eGFR: STL EGFR (within one year). CREATININE 1.17 mg/dL (11/13/23 14:20) Wt: 189.3 lb [85.87 kg] (10/18/2023 10:32) History of: Renal failure, chronic or acute renal disease: NO Report Status: Verified Date Reported: NOV 13, 2023 Date Verified: NOV 13, 2023 Boarding Machine Operator E-Sig: Report: CT HEAD W/O [...] clinical concern, consider MRI. READING PHYSICIAN: Anjum [id number] 11/13/2023 15:14 PDT [facility] National Teleradiology Program [phone] (For Medical Practitioner Use Only) Attention Patients / Veterans: If you have questions or concerns about these test results, please contact your ordering provider or primary care team. Primary Interpreting Staff: RADIOLOGY,OUTSIDE SERVICE, Staff Physician / RADIOLOGY,OUTSIDE SERVICE [facility] Nov 13, 2023 03:59 PM CHEST X-RAY, 2 VIEWS: JESUS ABRAHAM [id number] -1935 M Exm Date: NOV 13, 2023@15:59 Req Phys: CYRUS EVANS Pat Loc: -EMERGENCY DEPT 2ND SHIFT (R Img Loc: -MAIN RADIOLOGY SUITE Service: [facility], [facility] [address] [place] [address] (Case [id number] COMPLETE) CHEST X-RAY, 2 VIEWS (RAD Detailed) CPT:16830 Reason for Study: chest pain Clinical History: Report Status: Verified Date Reported: NOV 13, 2023 Date Verified: NOV 13, 2023 Boarding Machine Operator E-Sig:/ES/AGUSTO LIPSCOMB Report: INDICATION: chest pain COMPARISON: None TECHNIQUE: Chest 2 views Impression: No large pleural effusion or sizable pneumothorax. No new focal consolidation. Unchanged cardiomediastinal silhouette. Primary Interpreting Staff: AGUSTO LIPSCOMB, RADIOLOGIST (Boarding Machine Operator) /AGUSTO [place] [facility] Pathology Reports: +/- 30 days [...] RE PORT: Accession [UID]: [id number] [[id number]] Received: Nov 13, 2023@18:22 Collection sample: B [...] Bacteriology Report Performed By: [facility] [address] [place] [address]# [id number] [facility] [address] [place] [address] [facility] Nov 13, 2023 06:05 PM LR MICROBIOLOGY RE PORT: Accession [UID]: [id number] [[id number]] Received: Nov 13, 2023@18:23 Collection sample: B [...] --=--=--=--=--=--=-- Performing Laboratory: Bacteriology Report Performed By: [place] HANNY LOMBARDO [address] [facility] CLIA# [id number] [address] [facility] [address] [place] [address] [facility] Encounter Notes: All associated encounter notes This section contains the clinical notes associated to the Encounter. Date/Time Encounter Note(s) Provider Source Nov 14, 2023 10:16 AM CARDIOLOGY DIAGNOS TIC STUDY CONSULT: LOCAL TITLE: EKG CONSULT STL STANDARD TITLE: CARDIOLOGY DIAGNOSTIC STUDY CONSULT DATE OF NOTE: NOV 14, 2023@10:16:06 ENTRY DATE: NOV 14, 2023@10:16:06 AUTHOR: CLINICAL,DEVICE PRO EXP COSIGNER: URGENCY: STATUS: COMPLETED DOCUMENT IN [facility] SEE FULL REPORT IN [facility] SIGNATURE NOT REQUIRED SEE SIGNATURE IN [facility] ([place] EKG) AUTO-INSTRUMENT DIAGNOSIS Procedure: 26079 12 Lead ECG Release Status: Released Off-Line Verified Date Verified: Nov 14, 2023@10:15:58 82087.2 Ventricular Rate: 65 BPM 69874.3 Atrial Rate: 65 BPM 57720.4 P-R Interval: 202 ms 13970.5 QRS Duration: 138 ms 56070.6 Q-T Interval: 484 ms 37856 QTC Calculation(Bazett)503 ms 05090.12 Calculated P [place]: 74 degrees 51938.13 Calculated R [place]: 249 degrees 97397.14 Calculated T [place]: 39 degrees Normal sinus rhythm Right bundle branch block Abnormal ECG When compared with ECG of 03-MAY-2023 13:13, No significant change was found Administrative Closure: 11/14/2023 by: CLINICAL,DEVICE PROXY SERVICE CLINICAL,DEVICE PROXY SERVICE [facility]
--- OUTSIDE RECORDS SUMMARY | 2024-05-17 21:54 | XMS_ITS | Encounter Summary ---
Author Name [facility] [place] [facility] [place] Address [address] [place] [address] Care Team Providers Care Loftsman/Woman Name Role Phone MEAGHAN QUINTEROS Primary Care [...] PART A Aug 12, 2001 PART A [id number] [phone] BARRINGTONJESUS BUTT PATIENT MEDICARE (WNR) MEDICARE (M) PART B Aug 12, 2001 PART B [id number] [phone] JESUS PEDERSEN PATIENT Selected Encounter This section includes the information on record at [place] for the Encounter. Date/Time Encounter Type Encounter Description Reason Pro vider Source October 12, 2023 02:49 PM Outpatient Encounter ADMIN PAT ACTIVTIES (MASNONCT) IHE Encounter Template Text not used by [place] Plan of Treatment: Future Appointments (+ 6 [...] 20 appointments. The data comes from all [facility]. Appointment Date/Time Appointment Type Appointme nt Facility Name Oct 15, 2023 02:00 PM AMBULATORY - SURGERY [facility] Oct 18, 2023 10:20 AM AMBULATORY - MEDICINE [facility] Nov 13, 2023 02:03 PM AMBULATORY - MEDICINE [facility] Nov 23, 2023 09:00 AM AMBULATORY - MEDICINE [facility] Nov 23, 2023 10:00 AM AMBULATORY - MEDICINE [facility] Nov 23, 2023 11:30 AM AMBULATORY - MEDICINE [facility] Dec 24, 2023 02:45 PM AMBULATORY - SURGERY [facility] Jan 01, 2024 02:00 PM AMBULATORY - REHAB MEDICIN E [facility] Feb 29, 2024 01:30 PM AMBULATORY - MEDICINE [facility] Mar 03, 2024 09:15 AM AMBULATORY - MEDICINE [facility] Mar 08, 2024 01:30 PM AMBULATORY - MEDICINE [facility] Mar 10, 2024 12:45 PM AMBULATORY - SURGERY [facility] Active, Pending, and Scheduled Orders This section includes a listing of several types of active, pending, and scheduled orders, including clinic medications orders, diagnostic test orders, procedure orders and consult orders; where the start date of the order is 45 days before the date of the Encounter or 45 days after the date of theEncounter. The data comes from all [facility]. Test Date/Time Test Type Test Details Facility Name Nov 13, 2023 09:10 PM Laboratory - Chemi stry Order MRSA SURVL NARES DNA NARES WC [facility] Nov 21, 2023 12:00 AM Laboratory - Chemi stry Order HGA1C BLOOD SP [facility] Nov 21, 2023 12:00 AM Laboratory - Chemi stry Order VITAMIN D, 25-HYDROXY GOLD/RED SST SERUM SP [facility] Vital Signs: All taken on the encounter date This section contains inpatient and outpatient Vital Signs collected on the date of the Encounter. Date/Time Temperature Pulse Blood Pressure Respiratory Rate SP02 Pain Height Weight Body Mass Index Source October 12, 2023 10:26 AM 98.2 98 143/71 18 98 0 190.7 25 [facility] Social History: Smoking Status (Most current) and Tobacco Use (All prior to encounter date) This section includes the most current, and the historical, smoking and tobacco- related health factors from the [place] facility where the Encounter took place. Current Smoking Status This section includes the most current smoking, or tobacco-related health factor, from the [place] facility where the Encounter took place. Date/Time Current Smoking Status Comment Facil ity Aug 04, 2022 11:30 AM VA-TOBACCO NEVER USED [facility] Tobacco Use History This section includes a history of the smoking, or tobacco-related health factors, that were collected on or before the date of the Encounter. The data comes from the [place] facility where the Encounter took place. Date/Time Smoking Status/Tobacco Use Comment F acility Mar 11, 2021 10:30 AM VA-TOBACCO FORMER USER [facility] Mar 11, 2021 10:30 AM VA-TOBACCO QUIT 15 YRS OR MORE [facility] Apr 19, 2018 09:07 AM VA-TOBACCO FORMER USER [facility] Apr 19, 2018 09:07 AM VA-TOBACCO QUIT 15 YRS OR MORE [facility] Jul 24, 2017 08:16 AM QUIT TOBACCO >7 YEARS AGO [facility] Apr 16, 2017 12:43 PM QUIT TOBACCO >7 YEARS AGO [facility] Feb 01, 2017 11:47 AM LIFETIME NON-USER OF TOBACCO [facility] Nov 15, 2016 09:00 AM QUIT TOBACCO >7 YEARS AGO [facility] September 11, 2016 06:27 PM QUIT TOBACCO >7 YEARS AGO [facility] Dec 09, 2015 10:17 AM QUIT TOBACCO >7 YEARS AGO [facility] Jan 05, 2015 08:22 AM CURRENT TOBACCO USER [facility] Jan 05, 2015 08:22 AM TOBACCO MEDS OFFER ED BUT DECLINED [facility] Mar 18, 2014 10:40 AM CURRENT TOBACCO USER [facility] Mar 18, 2014 10:40 AM TOBACCO MEDS OFFER ED BUT DECLINED [facility] Nov 04, 2013 09:40 AM CURRENT TOBACCO USER [facility] Nov 26, 2012 08:10 AM QUIT TOBACCO >7 YEARS AGO [facility] May 03, 2009 08:45 AM QUIT TOBACCO >7 YEARS AGO [facility] Jul 06, 2008 08:46 AM CURRENT TOBACCO USER [facility] Jul 25, 2007 12:30 PM QUIT TOBACCO >12 M O & <7 YRS AGO [facility] Jun 07, 2006 09:21 AM CURRENT TOBACCO USER [facility] Jun 07, 2006 09:21 [facility] Aug 25, 2005 11:01 AM CURRENT TOBACCO USER [facility] Aug 25, 2005 11:01 AM TOBACCO CONTEMPLATION STAGE [facility] Oct 25, 2004 10:18 AM CURRENT NON-TOBACC O USER-HX OF USE [facility] Oct 25, 2004 10:18 AM TOBACCO TERMINATION STAGE [facility] Aug 24, 2003 10:43 AM CURRENT NON-TOBACC O USER-HX OF USE [facility] Aug 24, 2003 10:43 AM TOBACCO TERMINATION STAGE [facility] Aug 05, 2002 09:55 AM CURRENT NON-TOBACC O USER-HX OF USE QUIT [facility] Apr 15, 2001 08:28 AM CURRENT NON-TOBACC O USER-HX OF USE quit in 1979 [facility] Advance Directives: All historical and current Section Date Range: From patient's date of to the date document was created. This section includes ALL of a patient's completed or amended [place] Advance and Rescinded Directives. The entries below indicate that a directive exists for the patient, but an actual copy is not included with this document. The data comes from all [place] facilities. Date Advance Directives Provider Source Oct 19, 2023 ADVANCE DIRECTIVE LIDIA,WANG FRANNIE [facility] Dec 12, 2022 RESCINDED ADVANCE DIRECTIVE JITENDRA MEADOWS [facility] September 12, 2016 ADVANCE DIRECTIVE DISCUSSION YVETTE MEADOWS [facility] Encounter Notes: All associated encounter notes This section contains the clinical notes associated to the Encounter. Date/Time Encounter Note(s) Provider Source Oct 15, 2023 03:36 PM ADDENDUM: LOCAL TITLE: Addendum STANDARD TITLE: ADDENDUM DATE OF NOTE: OCT 15, 2023@15:36:19 ENTRY DATE: OCT 15, 2023@15:36:23 AUTHOR: MEAGHAN QUINTEROS EXP COSIGNER: URGENCY: STATUS: COMPLETED Ms. Mendez, Can you please schedule Mr. Pedersen for a telephone appointment so we can determine the best kind of physical therapy and I can request it accordingly? TY /pennie QUINTEROS MD STAFF PHYSICIAN Signed: 10/15/2023 15:41 Receipt Acknowledged By: 10/17/2023 13:13 /pennie GOLDEN --- Original Document --- 10/12/23 CONTACT NOTE STL: Veterans name and last 4 were used to verify identity Verified Veterans telephone #/Updated telephone number in the system REASON FOR CALL: Other: Reason for call: patient wants a consult for physical therapy /pennie GOLDEN Signed: 10/12/2023 14:51 Receipt Acknowledged By: 10/15/2023 15:35 /pennie QUINTEROS MD STAFF PHYSICIAN 10/12/2023 ADDENDUM STATUS: COMPLETED the facility where the patient lives has an in facility physical therapist he would like to use. /pennie GOLDEN Signed: 10/12/2023 14:54 Receipt Acknowledged By: 10/15/2023 15:Charlee /pennie QUINTEROS MD STAFF PHYSICIAN MEAGHAN QUINTEROS [facility] October 12, 2023 02:52 PM ADDENDUM: LOCAL TITLE: Addendum STANDARD TITLE: ADDENDUM DATE OF NOTE: OCTOBER 12, 2023@14:52:36 ENTRY DATE: OCTOBER 12, 2023@14:52:38 AUTHOR: JON VALVERDE EXP COSIGNER: URGENCY: STATUS: COMPLETED the facility where the patient lives has an in facility physical therapist he would like to use. /manuel/ JON GOLDEN Signed: 10/12/2023 14:54 Receipt Acknowledged By: 10/15/2023 15:35 /manuel/ MEAGHAN QUINTEROS MD STAFF PHYSICIAN --- Original Document --- 10/12/23 CONTACT NOTE STL: Veterans name and last 4 were used to verify identity Verified Veterans telephone #/Updated telephone number in the system REASON FOR CALL: Other: Reason for call: patient wants a consult for physical therapy /manuel/ JON GOLDEN Signed: 10/12/2023 14:51 Receipt Acknowledged By: 10/15/2023 15:35 /pennie QUINTEROS MD STAFF PHYSICIAN JON VALVERDE [facility] October 12, 2023 02:49 PM ADMINISTRATIVE NOT E: LOCAL TITLE: CONTACT NOTE STL STANDARD TITLE: ADMINISTRATIVE NOTE DATE OF NOTE: OCTOBER 12, 2023@14:49 ENTRY DATE: OCTOBER 12, 2023@14:50 AUTHOR: JON VALVERDE EXP COSIGNER: URGENCY: STATUS: COMPLETED CONTACT NOTE STL Has ADDENDA Veterans name and last 4 were used to verify identity Verified Veterans telephone #/Updated telephone number in the system REASON FOR CALL: Other: Reason for call: patient wants a consult for physical therapy /manuel/ JON GOLDEN Signed: 10/12/2023 14:51 Receipt Acknowledged By: 10/15/2023 15:35 /pennie QUINTEROS MD STAFF PHYSICIAN 10/12/2023 ADDENDUM STATUS: COMPLETED the facility where the patient lives has an in facility physical therapist he would like to use. /manuel/ JON GOLDEN Signed: 10/12/2023 14:54 Receipt Acknowledged By: 10/15/2023 15:35 /pennie QUINTEROS MD STAFF PHYSICIAN 10/15/2023 ADDENDUM STATUS: COMPLETED Ms. Mendez, Can you please schedule Mr. Pedersen for a telephone appointment so we can determine the best kind of physical therapy and I can request it accordingly? TY /manuel/ MEAGHAN QUINTEROS MD STAFF PHYSICIAN Signed: 10/15/2023 15:41 Receipt Acknowledged By: * AWAITING SIGNATURE * JON VALVERDE JADA [facility]
--- OUTSIDE RECORDS SUMMARY | 2024-05-17 21:54 | XMS_ITS | Encounter Summary ---
Author Name [facility] [place] Address [address] [place] [address] Care Team Providers Care Site Lead Name Role Phone MEAGHAN QUINTEROS Primary Care [...] PART A Aug 12, 2001 PART A [id number] [phone] JESUS ABRAHAM PATIENT MEDICARE (WNR) MEDICARE (M) PART B Aug 12, 2001 PART B [id number] [phone] TOBIDANAYJESUS BUTT PATIENT Selected Encounter This section includes the information on record at [place] for the Encounter. 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 Date/Time Primary/Secondary Diagnosis Diagnosis Name Provider Source Jul 30, 2023 03:50 PM PRIMARY Exudative age-rel mclr degn, bi, with inact chrdl neovas CONNOR,SAW Gale [facility] Jul 30, 2023 03:50 PM SECONDARY Presbyopia SAW JORGE [facility] Jul 30, 2023 03:50 PM SECONDARY Presence of intraocular lens CONNORSAW Schultz [facility] Plan of Treatment: Future Appointments (+ 6 months) and Future Tests (+/- 45 days) The Plan of Treatment section includes future care [facility] for the [facility] [place] [facility] This section includes future appointments and future orders which are active, pending or scheduled. Future Appointments This section includes appointments that were scheduled to occur 6 months from the date of the Encounter, up to a maximum of 20 appointments. The data comes from all [place] treatment facilities. Appointment Date/Time Appointment Type Appointme nt Facility Name October 12, 2023 10:20 AM AMBULATORY - MEDICINE [facility] Oct 15, 2023 02:00 PM AMBULATORY - SURGERY [facility] Oct 18, 2023 10:20 AM AMBULATORY - MEDICINE [facility] Nov 13, 2023 02:03 PM AMBULATORY - MEDICINE [facility] Nov 23, 2023 09:00 AM AMBULATORY - MEDICINE [facility] Nov 23, 2023 10:00 AM AMBULATORY - MEDICINE [facility] Nov 23, 2023 11:30 AM AMBULATORY - MEDICINE [facility] Dec 24, 2023 02:45 PM AMBULATORY - SURGERY [facility] Jan 01, 2024 02:00 PM AMBULATORY - REHAB MEDICIN E [facility] Social History: Smoking Status (Most current) [...] Encounter took place. Date/Time Current Smoking Status Radha sarkar Aug 04, 2022 11:30 AM VA-TOBACCO NEVER USED [facility] Tobacco Use History This section includes a history of the smoking, or tobacco-related health factors, that were collected on or before the date of the Encounter. The data comes from the [place] facility where the Encounter took place. Date/Time Smoking Status/Tobacco Use Comment F acility Mar 11, 2021 10:30 AM VA-TOBACCO FORMER USER [facility] Mar 11, 2021 10:30 AM VA-TOBACCO QUIT 15 YRS OR MORE [facility] Apr 19, 2018 09:07 AM VA-TOBACCO FORMER USER [facility] Apr 19, 2018 09:07 AM VA-TOBACCO QUIT 15 YRS OR MORE [facility] Jul 24, 2017 08:16 AM QUIT TOBACCO >7 YEARS AGO [facility] Apr 16, 2017 12:43 PM QUIT TOBACCO >7 YEARS AGO [facility] Feb 01, 2017 11:47 AM LIFETIME NON-USER OF TOBACCO [facility] Nov 15, 2016 09:00 AM QUIT TOBACCO >7 YEARS AGO [facility] September 11, 2016 06:27 PM QUIT TOBACCO >7 YEARS AGO [facility] Dec 09, 2015 10:17 AM QUIT TOBACCO >7 YEARS AGO [facility] Jan 05, 2015 08:22 AM CURRENT TOBACCO USER [facility] Jan 05, 2015 08:22 AM TOBACCO MEDS OFFER ED BUT DECLINED [facility] Mar 18, 2014 10:40 AM CURRENT TOBACCO USER [facility] Mar 18, 2014 10:40 AM TOBACCO MEDS OFFER ED BUT DECLINED [facility] Nov 04, 2013 09:40 AM CURRENT TOBACCO USER [facility] Nov 26, 2012 08:10 AM QUIT TOBACCO >7 YEARS AGO [facility] May 03, 2009 08:45 AM QUIT TOBACCO >7 YEARS AGO [facility] Jul 06, 2008 08:46 AM CURRENT TOBACCO USER [facility] Jul 25, 2007 12:30 PM QUIT TOBACCO >12 M O & <7 YRS AGO [facility] Jun 07, 2006 09:21 AM CURRENT TOBACCO USER [facility] Jun 07, 2006 09:21 AM TOBACCO [facility] Aug 25, 2005 11:01 AM CURRENT TOBACCO USER [facility] Aug 25, 2005 11:01 AM TOBACCO CONTEMPLATION STAGE [facility] Oct 25, 2004 10:18 AM CURRENT NON-TOBACC O USER-HX OF USE [facility] Oct 25, 2004 10:18 AM TOBACCO TERMINATION STAGE [facility] Aug 24, 2003 10:43 AM CURRENT NON-TOBACC O USER-HX OF USE [facility] Aug 24, 2003 10:43 AM TOBACCO TERMINATION STAGE [facility] Aug 05, 2002 09:55 AM CURRENT NON-TOBACC O USER-HX OF USE QUIT [facility] Apr 15, 2001 08:28 AM CURRENT NON-TOBACC O USER-HX OF USE quit in 1979 [facility] Advance Directives: All historical and current [...] 2023 ADVANCE DIRECTIVE WANG MURILLO [facility] Dec 12, 2022 RESCINDED ADVANCE DIRECTIVE JITENDRA MEADOWS [facility] September 12, 2016 ADVANCE DIRECTIVE DISCUSSION YVETTE MEADOWS [facility] Encounter Notes: All associated encounter notes This section contains the clinical notes associated to the Encounter. 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 -uses AREDS [facility] - pt reports compliance -saw clinic in may 2021 2. Vision -per pt vision is stable since may 2023 -doesn't use amsler currently -wears bifocals from 2022; mainly for reading 3. Dry eyes -uses refresh prn; ran out and wants to order more -prefers to get O[facility]ugh [facility] -eyes are cloudy in the am. Ocular meds: ATs prm Ocular ROS: (+) PCIOL OU (+) AMD OU Family OcHX: (-) blindness (-) glaucoma (-) AMD (-) RD Cardiovascular ROS: no change from problem & medication lists CPRS Problem list, medications and allergies reviewed: CPRS Serology for Diabetes GLUCOSE 125 H mg/dL 05/18/2023 10:09 HGA1C 7.3 H % 05/18/2023 10:09 Cardiovascular BP: 120/60 (05/18/2023 10:28) Pulse: 75 (05/18/2023 10:28) Neuro: Orientation: Normal Psych: Mood/Affect: Normal Depression/suicide ideation: NO VISUAL ACUITY With correction Distance Visual Acuity Nut Dehydrator Operator OD: 20/100 (w/single letter, EV) OS: 20/60+ Pupils PERRL OU (-)APD Nut Dehydrator Operator Confrontation: FTFC OU Extra-Ocular Muscles Full OU Externals/adnexa: Unremarkable OU Refraction 08/07/22 OD SPHERE: +1.50 CYL: -2.00 AXIS: 100 OS SPHERE: -0.25 CLY: -2.75 AXIS: 90 ADD: +2.75 *BIFOCAL AutoRefraction 07/30/23 OD: +1.00 -2.00 x100 OS: +0.50 -3.00 x101 Refraction: 07/30/23 Nut Dehydrator Operator OD: +1.00 -2.00 x100 20/400 OS: +0.50 -3.00 x095 20/40+ Add: +2.75 SLIT LAMP EXAMINATION Lids/Lashes/Lacrimal No blepharitis OU Conjunctiva/Sclera White/quiet OU Cornea Clear OU Ant Chamber Deep and quiet OU Iris Normal, (-)NVI OU Lens PCIOL OU, centered OU, OD linear PCO OS clear Intraocular Pressures (Goldmann) 1 gtt fluress Date: O.D. O.S. Time Meds 08/07/22 21 21 1326 none 07/30/23 19 20 0135 none RETINAL EVALUATION pt seeing retina clinic today for DFE ------ Saw Jorge, Optometry Nut Dehydrator Operator participated in the care of this under my supervision. 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 /manuel/ KATE RUSSELL, OD staff Physician, Optometry Signed: 07/30/2023 16:05 BUSKIRKATE Colunga [facility]
--- OUTSIDE RECORDS SUMMARY | 2024-05-17 21:54 | XMS_ITS | Encounter Summary ---
Author Name [facility] [place] Address [address] [place] [address] Care Team Providers Care Senior Quality Assurance Engineer Name Role Phone MEAGHAN QUINTEROS Primary [...] PART A Aug 12, 2001 PART A [id number] [phone] BARRINGTONJESUS BUTT PATIENT MEDICARE (WNR) MEDICARE (M) PART B Aug 12, 2001 PART B [id number] JESUS ABRAHAM PATIENT Selected Encounter This section includes the information on record at [place] for the Encounter. Date/Time Encounter Type Encounter Description Reason Pro vider Source Sep 10, 2023 11:48 AM Outpatient Encounter ADMIN PAT ACTIVTIES (MASNONCT) [...] 12, 2023 10:20 AM AMBULATORY - MEDICINE [facility] Oct 15, 2023 02:00 PM AMBULATORY - SURGERY [facility] Oct 18, 2023 10:20 AM AMBULATORY - MEDICINE [facility] Nov 13, 2023 02:03 PM AMBULATORY - MEDICINE [facility] Nov 23, 2023 09:00 AM AMBULATORY - MEDICINE [facility] Nov 23, 2023 10:00 AM AMBULATORY - MEDICINE [facility] Nov 23, 2023 11:30 AM AMBULATORY - MEDICINE [facility] Dec 24, 2023 02:45 PM AMBULATORY - SURGERY [facility] Jan 01, 2024 02:00 PM AMBULATORY - REHAB MEDICIN E [facility] Feb 29, 2024 01:30 PM AMBULATORY - MEDICINE [facility] Mar 03, 2024 09:15 AM AMBULATORY - MEDICINE [facility] Mar 08, 2024 01:30 PM AMBULATORY - MEDICINE [facility] Mar 10, 2024 12:45 PM AMBULATORY - SURGERY [facility] Social History: Smoking Status (Most current) [...] took place. Date/Time Current Smoking Status Comment eDna ity Aug 04, 2022 11:[address]-TOBACCO NEVER USED [facility] Tobacco Use [...] [place] Jun 07, 2006 09:21 [facility] Aug 25, [...] Oct 19, 2023 ADVANCE DIRECTIVE WANG MURILLO [facility] Dec 12, 2022 RESCINDED ADVANCE DIRECTIVE JITENDRA MEADOWS [facility] September 12, 2016 ADVANCE DIRECTIVE DISCUSSION YVETTE MEADOWS [facility] Encounter Notes: All associated encounter notes This section contains the clinical notes associated to the Encounter. Date/Time Encounter Note(s) Provider Source Sep 10, 2023 11:48 AM ADMINISTRATIVE NOT E: LOCAL TITLE: CONTACT NOTE ST STANDARD TITLE: ADMINISTRATIVE NOTE DATE OF NOTE: SEP 10, 2023@11:48 ENTRY DATE: SEP 10, 2023@11:48:11 AUTHOR: JON VALVERDE EXP COSIGNER: URGENCY: STATUS: COMPLETED Veterans name and last 4 were used to verify identity Verified Veterans telephone #/Updated telephone number in the system REASON FOR CALL: Appointment inquiry: Primary Care Appointment: Schedule or re-schedule appointment: Clinic: [facility] PCP Comments: Nov 23, 2023@11:30 /es/ JON GOLDEN Signed: 09/10/2023 11:49 JON VALVERDE [facility]
--- OUTSIDE RECORDS SUMMARY | 2024-05-17 21:54 | XMS_ITS | Encounter Summary ---
Author Name [facility] [place] [facility] [place] [facility] [place] Address [address] [place] [address] Care Team Providers Care Mailing Section Clerk Name Role Phone CHARLINE QUINTEROS Primary Care [...] PART B Aug 12, 2001 PART B [id number] JESUS CASTILLO PATIENT MEDICARE ([place]NR) MEDICARE (M) PART A Aug 12, 2001 PART A [id number] JESUS CASTILLO PATIENT Selected Encounter This section includes the information on record at [place] for the Encounter. Date/Time Encounter Type Encounter Description Reason Provider Source May 18, 2023 10:30 AM OFFICE O/P EST MOD 30 MIN PRIMARY CARE/MEDICINE ICD-10-CM R05.3 Chronic cough CHARLINE QUINTEROS [place] Encounter Template Text not used by [place] Assessments - Encounter Diagnoses This section includes the primary and secondary diagnoses documented for the Encounter. Date/Time Primary/Secondary Diagnosis Diagnosis Name Provider Source May 18, 2023 01:37 PM PRIMARY Chronic cough CHARLINE QUINTEROS [facility] May 18, 2023 01:37 PM SECONDARY Encounter for immunization BITA IRVIN [facility] May 18, 2023 01:37 PM SECONDARY Essential (primary) hypertension CHARLINE QUINTEROS [facility] May 18, 2023 01:37 PM SECONDARY Osteoarthritis of knee, unspecified TALAHOANGCHARLINE [facility] May 18, 2023 01:37 PM SECONDARY Type 2 diabetes mellitus without complications CHARLINE QUINTEROS [facility] Plan of Treatment: Future Appointments (+ 6 months) and Future Tests (+/- 45 days) The Plan of Treatment section includes future care activities for the patient [facility] [place] [facility]. This section includes future appointments and future orders which are active, pending or scheduled. Future Appointments This section includes appointments that were scheduled to occur 6 months from the date of the Encounter, up to a maximum of 20 appointments. The data comes from all [facility] facilities. Appointment Date/Time Appointment Type Appointme nt Facility Name May 21, 2023 01:30 PM AMBULATORY - SURGERY [facility] Jul 30, 2023 01:00 PM AMBULATORY - SURGERY [facility] Jul 30, 2023 02:00 PM AMBULATORY - SURGERY [facility] October 12, 2023 10:20 AM AMBULATORY - MEDICINE [facility] Oct 15, 2023 02:00 PM AMBULATORY - SURGERY [facility] Oct 18, 2023 10:20 AM AMBULATORY - MEDICINE [facility] Nov 13, 2023 02:03 PM AMBULATORY - MEDICINE [facility] Lab Results: +/- 30 days of the encounter This section includes the Chemistry and Hematology Lab Results on record with [place] for the patient. Radiology Reports and Pathology Reports are provided separately, in subsequent sections. Lab Results This section contains the Chemistry/Hematology Results that were resulted 30 days before or 30 daysafter the date of the Encounter. Date/Time Source Result Type Result - Unit Interpretation Reference Range Comment May 18, 2023 10:09 AM [facility] HGA1C Specimen Type: BLOOD No comment entered. Ordering Provider: CHARLINE QUINTEROS Report Released Date/Time: May 16, 2023 12:53 PM Reporting Lab: [address] [address] Performing Lab: [address] [address] HGA1C 7.3 H 4.0-6.0 May 18, 2023 10:09 AM [facility] TSH (MA-PB-STL) Specimen Type: SERUM No comment entered. Ordering Provider: CHARLINE QUINTEROS Report Released Date/Time: May 16, 2023 12:53 PM Reporting Lab: [address] [address] Performing Lab: [address] [address] TSH 3.996 u[IU]/mL 0.47-5 May 18, 2023 10:09 AM [facility] LIPID PANEL (STL) Specimen Type: PLASMA Comment: No hemolysis noted. Ordering Provider: CHARLINE QUINTEROS Report Released Date/Time: May 16, 2023 12:53 PM Reporting Lab: [address] [address] Performing Lab: [address] [address] CHOLESTEROL 151 mg/dL 0-200 TRIGLYCERIDE 63 mg/dL 0-150 CALCULATED LDL 82 mg/dL HDL(New) 56 mg/dL >40 May 18, 2023 10:09 AM [facility] VITAMIN D, 25-HYDROXY Specimen Type: SERUM No comment entered. Ordering Provider: CHARLINE QUINTEROS Report Released Date/Time: May 16, 2023 12:53 PM Reporting Lab: [address] [address] Performing Lab: [address] [address] VITAMIN D, 25-HYDROXY 20.0 ng/mL L 30-96 May 18, 2023 10:09 AM [facility] RENAL PANEL Specimen Type: PLASMA Comment: No hemolysis noted. Ordering Provider: CHARLINE QUINTEROS Report Released Date/Time: May 16, 2023 12:53 PM Reporting Lab: [facility] [address] [facility] [address] Performing Lab: [facility] [address] [place] [phone] CREATININE 0.82 mg/dL 0.7-1.3 UREA NITROGEN 8.8 mg/dL L 9.0-25.0 GLUCOSE 125 mg/dL H 72-99 SODIUM 135 meq/L L 136-145 POTASSIUM 4.1 meq/L 3.5-5 CHLORIDE 101 meq/L 98-107 CARBON DIOXIDE 24 meq/L 22-31 CALCIUM 9.4 mg/dL 8.4-10.4 PHOSPHOROUS 3.6 mg/dL 2.3-4.7 ALBUMIN 4.3 g/dL 3.4-5 EGFR (CKD-EPI 2020) 85.6 >60 May 03, 2023 12:55 PM [facility] COVID-19 SCREENING PANEL (STL-PB) Specimen Type: NASOPHARYNX Comment: Qualitative real-time PCR [...] epidemiological information for final interpretation. Ordering Provider: JENA QUINTEROS Report Released Date/Time: May 03, 2023 12:49 PM Reporting Lab: [facility] [address] [place] [phone] Performing Lab: [address] [address] COVID-19 (STL-PB) Not Detected Not Detected May 03, 2023 12:55 PM [facility] BRAIN NATRIURETIC PEPTIDE Specimen Type: PLASMA No comment entered. Ordering Provider: JENA QUINTEROS Report Released Date/Time: May 03, 2023 12:49 PM Reporting Lab: [facility] [address] [facility] [address] Performing Lab: [facility] [address] [place] [phone] BRAIN NATRIURETIC PEPTIDE 105.5 pg/mL H 0-100 May 03, 2023 12:55 PM [facility] TROPONIN I Specimen Type: PLASMA Comment: No hemolysis noted. Ordering Provider: JENA QUINTEROS Report Released Date/Time: May 03, 2023 12:49 PM Reporting Lab: [address] [address] Performing Lab: [address] [address] TROPONIN I 0.017 ng/mL 0-0.033 May 03, 2023 12:55 PM [facility] COMPREHENSIVE METABOLIC PANEL Specimen Type: PLASMA Comment: No hemolysis noted. Ordering Provider: JENA QUINTEROS Report Released Date/Time: May 03, 2023 12:49 PM Reporting Lab: [address] [address] Performing Lab: [address] [address] CREATININE 0.81 mg/dL 0.7-1.3 UREA NITROGEN 9.1 mg/dL 9.0-25.0 GLUCOSE 169 mg/dL H 72-99 SODIUM 133 meq/L L 136-145 POTASSIUM 4.2 meq/L 3.5-5 CHLORIDE 101 meq/L 98-107 CARBON DIOXIDE 24 meq/L 22-31 CALCIUM 8.9 mg/dL 8.4-10.4 PROTEIN 7.3 g/dL 6-8.6 ALBUMIN 4.2 g/dL 3.4-5 TOTAL BILIRUBIN 0.5 mg/dL 0.2-1.2 ALKALINE PHOSPHATASE 69 U/L 40-150 AST/SGOT 22 U/L 5-34 ALT/SGPT 22 U/L 8-40 EGFR (CKD-EPI 2020) 85.9 >60 May 03, 2023 12:55 PM [facility] CBC Specimen Type: BLOOD No comment entered. Ordering Provider: JENA QUINTEROS Report Released Date/Time: May 03, 2023 12:49 PM Reporting Lab: [facility] [address] [facility] [address] Performing Lab: [facility] [address] [facility] [address] WBC 9.4 10*3/uL 3.6-11.2 RBC 4.28 10*6/uL 4.10-5.70 HGB 13.0 g/dL L 13.1-16.8 HCT 39.2 38.2-48.4 MCV 91.6 fL 80.0-100.0 MCH 30.4 pg 27.0-34.0 MCHC 33.2 g/dL 33.0-36.0 PLT 315 10*3/uL 150-400 MPV 9.9 fL 7.5-11.2 RDW 13.5 11.8-15.1 NEUTROPHILS 65.2 MONOCYTES 12.2 EOSINOPHILS 4.3 BASOPHILS 0.9 POIKILOCYTOSIS 1+ BONY CELLS 1+ PAPPENHEIMER BODIES 0 LYMPHOCYTES 13.9 ATYPICAL LYMPHOCYTES 3.5 PLT EST-CV ADEQUATE ADEQUATE BASO#-MDIFF 0.08 10*3/uL 0.01-0.20 EO#-MDIFF 0.40 10*3/uL 0.00-0.60 MONO#-MDIFF 1.15 10*3/uL H 0.19-0.80 LYMPH#-MDIFF 1.64 10*3/uL 0.77-4.50 NEUT#-MDIFF 6.13 10*3/uL 2.10-8.00 Vital Signs: All taken on the encounter date This section contains inpatient and outpatient Vital Signs collected on the date of the Encounter. Date/Time Temperature Pulse Blood Pressure Respiratory Rate SP02 Pain Height Weight Body Mass Index Source May 18, 2023 10:36 AM 2 [facility] N May 18, 2023 10:28 AM 97.8 F 75 /min 120/60 mm[Hg] 16 /min 97 % 2 73 in 194 lb 26 [facility] Immunizations: All administered on the encounter date This section contains immunizations associated to the Encounter. Immunization Series Date Issued Reaction Comments COVID-19 (EXO5), MRNA, LNP -S, PF, FREDA-SUCROSE, 30 MCG/0.3 ML (AGES 12+ YEARS) May 18, 2023 ZOSTER RECOMBINANT May 18, 2023 Social History: Smoking Status (Most current) [...] VA-TOBACCO NEVER USED [facility] Tobacco Use History [...] HOSPITAL Jun 07, 2006 09:21 AM [facility] Aug [...] Oct 19, 2023 ADVANCE DIRECTIVE WANG MURILLO [facility] Dec 12, 2022 RESCINDED ADVANCE DIRECTIVE JITENDRA MEADOWS [facility] September 12, 2016 ADVANCE DIRECTIVE [...] the Encounter. The data comes from all [facility] facilities. Date/Time Radiology Report Provider Source May 03, 2023 01:36 PM CHEST X-RAY, 2 VIE WS: JESUS CASTILLO [id number] -[id number] M Exm Date: MAY 03, 2023@13:36 Req Phys: JENA QUINTEROS Loc: -EMERGENCY DEPT 2ND SHIFT (R Img Loc: -MAIN RADIOLOGY SUITE Service: Unknown (Case [id number] COMPLETE) CHEST X-RAY, 2 VIEWS (RAD Detailed) CPT:18806 Reason for Study: chest pain Clinical History: Report Status: Verified Date Reported: MAY 03, 2023 Date Verified: MAY 03, 2023 Electronic Gluer E-Sig:/ES/AMBER HAMPTON Report: CASE [id number]. Chest, PA and lateral views. COMPARISON: PA and lateral views of the chest dated 03/11/2021. FINDINGS: Lungs: The lungs are clear of airspace opacity. Mediastinum/Mari: The cardiomediastinal silhouette and pulmonary vascularity appear normal. Calcified perihilar granulomas are unchanged. Pleura: No pleural effusion or pneumothorax. Impression: No acute cardiopulmonary process. Report dictated by Shahriar Granados D.O. (residential substance abuse counselor) IAmber, have reviewed the images and report and concur with these findings. Primary Interpreting Staff: AMBER HAMPTON MD (Electronic Gluer) Primary Interpreting Resident: Shahriar Granados D.O., Resident Physician /AMBER MACDONALD [facility] Encounter Notes: All associated encounter notes This section contains the clinical notes associated to the Encounter. Date/Time Encounter Note(s) Provider Source May 21, 2023 04:14 PM PHYSICIAN LETTERS: LOCAL TITLE: TEST RESULT GENERAL LETTER STL STANDARD TITLE: PHYSICIAN LETTERS DATE OF NOTE: MAY 21, 2023@16:14 ENTRY DATE: MAY 21, 2023@16:14:46 AUTHOR: CHARLINE QUINTEROS COSIGNER: URGENCY: STATUS: COMPLETED [facility] [address] [place] [address] MAY 21, 2023 JESUS CASTILLO [address] [place], [place] [address] Dear Jesus Castillo, I would like to update you on your recent test results. I left a voicemail with your granddaughter to discuss your lab results in case you have additional questions, you can reach us at [phone]. --- PLAN: 1) Start vitamin D supplement daily 2) Monitor your carbohydrate intake, avoid excess sugar intake. --- LIPID PROFILE - High cholesterol and triglycerides (lipids) are risk factors for heart disease. Your cholesterol should fall between 140 and 200, and your triglycerides levels should be less than or equal to 150. HDL is the good cholesterol and should ideally be greater than 40. LDL is the bad cholesterol and optimal levels should be less than 100 (near optimal is between 100 and 129). TRIGLYCERIDE 63 mg/dL 05/18/2023 10:09 CHOLESTEROL 151 mg/dL 05/18/2023 10:09 HDL(New) 56 mg/dL 05/18/2023 10:09 CALCULATED LDL 82 mg/dL 05/18/2023 10:09 No DIRECT LDL EO data found The results are similar to previous values and not a clinical concern. HEMOGLOBIN A1C - Gives us information about your diabetes (sugar or glucose) control over the past 3 months. Your target is to keep your A1C below 7 %. HGA1C 7.3 H % 05/18/2023 10:09 These results are abnormal. Your average blood sugar is above the normal range. Diabetes is diagnosed at 6.5%. At your age the goal is to keep it below 7.5% preferably below 7%. I would recommend monitoring your dietary carbohydrate and excess sugar intake. CHEM 7 - This is important information about the current status of your kidneys, liver, and electrolyte and acid/base balance as well as of your blood sugar and blood proteins. SODIUM 135 L mEq/L 05/18/2023 10:09 POTASSIUM 4.1 mEq/L 05/18/2023 10:09 CHLORIDE 101 mEq/L 05/18/2023 10:09 UREA NITROGEN 8.8 L mg/dL 05/18/2023 10:09 CREATININE 0.82 mg/dL 05/18/2023 10:09 CALCIUM 9.4 mg/dL 05/18/2023 10:09 CARBON DIOXIDE 24 mEq/L 05/18/2023 10:09 GLUCOSE 125 H mg/dL 05/18/2023 10:09 EGFR (CKD-EPI 2020) 85.6 05/18/2023 10:09 These readings are within normal limits. TSH - Thyroid-stimulating hormone (also known as TSH or thyrotropin) is a peptide hormone synthesized and secreted by thyrotrope cells in the anterior pituitary gland, which regulates the endocrine function of the thyroid gland. TSH TSH 3.996 uIU/mL 05/18/2023 10:09 These readings are within normal limits. VITAMIN D - Helps promote the proper utilization of calcium and phosphorus, thereby producing proper bone maintenance. VITAMIN D, 25-HYDROXY 20.0 L ng/mL 05/18/2023 10:09 These results are abnormal. Start the vitamin D supplement daily which is being mailed to you. PLAN Please continue your treatment as we discussed during your visit. If you have any questions please call your showcase maker. I look forward to seeing you at your next clinic appointment. Thank you for choosing the [facility] for your healthcare. FUTURE APPOINTMENTS: 07/30/2023 13:00 HAL-OPTOMETRY 1 07/30/2023 14:00 HAL-OPHTH RETINA 11/19/2023 10:00 HAL-PACT C6 PCP Sincerely, CHARLINE QUINTEROS MD STAFF PHYSICIAN JESUS CASTILLO [facility] May 18, 2023 11:11 AM PRIMARY CARE NOTE: LOCAL TITLE: PRIMARY CARE PROVIDER ESTABLISHED [facility]ISIT [facility] STANDARD TITLE: PRIMARY CARE NOTE DATE OF NOTE: MAY 18, 2023@11:11 ENTRY DATE: MAY 18, 2023@11:11:52 AUTHOR: CHARLINE QUINTEROS EXP COSIGNER: URGENCY: STATUS: COMPLETED HAL-PACT C6 PCP VISIT FOLLOW-UP HPI: LEIGHJESUS Miguel is a 87 year old MALE with a PMHx of 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 His granddaughter Cassandra Burns is the main contact [phone]. Accompanied today by his son. Interval Hx: -last PCP visit: 11/20/22 -02/26/23 optho -03/13/23 derm -05/03/23 ER for chest pain, cardiac w/u negative Chronic conditions: -Vision loss: stable, seen by optho 12/18/22 -Hearing loss: not using hearing aides due to issues. Given # for audiology today. -Ambulates with cane, no falls New complaints: -CHEST PAIN, COUGH: chest pain ongoing for last 3 weeks, has had persistent cough with minimal sputum production, worse at night. Uses humidifier which helps. Uses nasal spray due to nighttime congestion. Has reproducible pain over his left ribs. CXR on 05/03 negative for pneumonia. No fevers/chills. Cardiac workup in ED negative. Likely costochondritis /inflammation from coughing. Agrees to tessalon pearls, mucinex, tylenol recommended but states he is unlikely to take anything else. Ok with diclofenac gel or icy/hot if needs it. REVIEW OF SYSTEMS: All 10 systems reviewed and negative except as noted above MEDICAL HISTORY: 1) Coronary artery disease (SNOMED CT 08899200) 2) Hyperlipidaemia (SNOMED CT 69231297) 3) Allergic rhinitis * (ICD-9-CM 477.9) 4) Carcinoma, Basal Cell 5) Osteoarthritis of knee (SNOMED CT 179784347) 6) Age related macular degeneration (SNOMED CT 981009397) 7) Colonic Polyps 8) Diabetes Mellitus without mention of Complication, type II or unspecified type, 9) Benign essential hypertension (SNOMED CT 9576739) 10) Pain in joint involving shoulder region [...] 780.79) 19) History/Skin/CA 20) Dermatitis (SNOMED CT 387631253) 21) Dry skin (SNOMED CT 57204056) 22) Chest pain 23) Exudative age-related macular degeneration 24) Hyperlipidemia 25) Diabetes mellitus 26) Insomnia 27) Osteoarthritis of knee SURGICAL HISTORY 08/2017 left eye cataract extraction with lens implant 11/2017 right eye cataract with lens implant BCC s/p MOHS Left total knee arthroplasty 2017 TURBT for bladder cancer 2015 FAMILY HISTORY Two brothers aged 82 and 80 in good health, no medical problems SOCIAL HISTORY TOBACCO- Never ALCOHOL- rare ILLICITS- none LIVES- [place] [facility] with spouse age 88, previously lived [place] [address] [place]. 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 - [employer] 4 years served in [employer], retired ALLERGIES reviewed Active Outpatient Medications (including Supplies): Active Outpatient Medications Status 1) BENZONATATE 200MG CAP TAKE ONE CAPSULE BY MOUTH THREE ACTIVE TIMES A DAY NEEDED FOR COUGH 2) DICLOFENAC NA 1% TOP GEL APPLY [...] OR SWALLOWED WHOLE. MAY CAUSE DROWSINESS. 4) PHENYLEPHRINE HCL 0.25% RTL SUPP UNWRAP AND INSERT 1 ACTIVE SUPPOSITORY RECTALLY TWICE DAILY NEEDED FOR HEMORRHOIDS 5) ROSUVASTATIN CA 40MG TAB TAKE ONE-HALF [...] A DAY 8 Total Medications PHSYICAL EXAM: Temperature:97.8 F [36.6 C] (05/18/2023 10:28) Blood Pressure:120/60 (05/18/2023 10:28) Pulse: 75 (05/18/2023 10:28) Respirations: 16 (05/18/2023 10:28) O2 Saturation: 97% (05/18/2023 10:28) Height: 73 in [185.4 cm] (05/18/2023 10:28) Weight: 194 lb [88.00 kg] (05/18/2023 10:28) BMI: 25.6 General: Sitting in chair, pleasant, in no acute distress Skin: No rashes, bruising, or abrasions noted HEENT: NC, AT, Pupils equal and reactive, EOMI, MMM, No JVD. HARD OF HEARING. Lungs: CTAB, No wheezes or crackles, good air movement Cardiovascular: Regular rate and rhythm, no murmur noted Abdominal: Soft, Non-tender, non-distended, active bowel sounds, No organomegaly Extremities: Moving all extremities. Pulses intact bilaterally, no edema in BLE. Neuro: Alert and oriented x3. Cranial nerves grossly intact, No focal deficits FOOT EXAM: 9/10 MONOFILAMENT TESTING, only cannot feel over the calloused areas under big toe. 2+ DP. No lesions. No edema. LABS: reviewed and notable for 05/03/23 er visit: trop negative, CMP wnl, CBC wnl, BNP 105 07/2022 micral 108, A1c 6.6%, LDL 62, BMP wnl IMAGING Imaging impressions 05/03/2023 CHEST X-RAY, 2 VIEWS [id number] Verified [id number] No acute cardiopulmonary process. 03/17/2022 [...] - Influenza (annual): due - Pneumococcal: pneumococcal 2002, PCV13 2015 - Zoster (2 doses 50y+): #1 05/18/23 - COVID vaccine: x2, 05/18/23 - HIV (once 15-65y): low risk, declined - Hep C (once 18-79y): nonreactive 2000 ==PREVENTATIVE CARE== - PSA (q2y men 55-69): aged out - Colorectal cancer screening (50-75y): 2014, now aged out. ==TOBACCO USE== - never smoker ASSESSMENT & PLAN: CARDIOVASCULAR DISEASE PREVENTION -Lipid profile: CALCULATED LDL 62 mg/dL 08/07/2022 14:50 -A1c: 6.6%, repeat today -Tobacco cessation: never smoker -ASA: 81mg taking CAD s/p ?stent -chest pain episode 05/03 active, ER workup negative for cardiac etiology -continue ASA 81 daily -rosuvastatin 20mg QHS -not on BB or ACEi d/t lightheadedness and falls -TTE 03/2022 with EF 60-65%, G1DD -stress test: 2019 wnl, has multiple prior stress tests all normal CHRONIC COUGH RIB PAIN -tessalon pearls PRN, [...] CONTROLLED - Complications: none - Last A1C: 6.6% - Microalbumin/creat: negative - LDL: 62 PLAN - Medications: diet controlled - Last eye appt: 02/2023 no retinopathy - Foot exam: DUE TODAY - Diabetes education completed WET MACULAR DEGENERATION -[facility] or comes with family -continue eye drops, vitamin OSTEOARTHRITIS -diclofenac gel PRN HEMORRHOIDS -phenylephrine suppositories PRN RTC in 4-6 Months Charline Quinteros M.D. Physician, Internal Medicine Primary Care Team C6 PCP 05/18/23 10:30 am HAL-PACT C6 PCP 05/21/23 1:30 pm HAL-OPHTH RETINA [phone] REMINDERS RHS Screen: RHS Screen Session Format: Face to Face Environmental Check Screening was not completed at this time due to: Another adult present Adv Care Plan Nurse STL: Advance Directive being reviewed in the outpatient setting Do you have an existing Advance Directive? YES: Are you satisfied with your existing Advance Directive? Yes HIV Screening (Routine): Patient has been offered HIV testing and has declined. I have explained that HIV testing is recommended for all adults, even if all risk factors are absent. Inhaler Use in COPD: Patient is not receiving inhalers, reminder is deactivated. PAVE Foot Check: A complete foot check was completed at this encounter. VISUAL INSPECTION: Includes inspection for skin breaks, deformity, erythema, trauma, pallor on elevation, dependent rubor, nail deformities, extensive callus and pitting edema. Visual exam results: Normal PEDAL PULSES: Includes palpation of dorsalis and posterior tibial pulses and signs/symptoms of vascular compromise like pain, pallor, parasthesia or paralysis. Present (even if diminished) SENSORY CHECK: Includes 10 gram Monofilament ([place]-Frank) test of sensation. Intact (Greater than or equal to 80% of sites checked) Abnormal (Less than 80% of sites checked): Intact LOW-RISK LOW RISK FOOT EDUCATION: 1. Advised patient not to walk barefoot. Instructed the patient to pay close attention to the style and fit of shoes. 2. Explained the importance of daily foot checks. Explained that loss of sensation leads to callouses. Callouses break down, which result in ulcers that may lead to gangrene and amputation. 3. Stressed the importance of daily foot hygiene. Warm (not hot) bathing of the feet, complete drying and thorough inspection for changes in the condition of the skin constitute daily foot care. Demonstrated how to do a thorough foot check. 4. Emphasized the use of clean, non-restrictive socks/stockings and well fitting shoes. 5. Stressed the importance of immediate follow-up of any foot injuries or ulcers. Explained that he/she should be non-weight bearing whenever there are lesions on the foot, to prevent cellular damage. Level of Understanding: Good PC [facility] MAP: PERSONAL HEALTH PLAN /es/ CHARLINE QUINTEROS MD STAFF PHYSICIAN Signed: 05/18/2023 13:37 CHARLINE QUINTEROS [facility] May 18, 2023 10:35 AM NURSING NOTE: LOCAL TITLE: V15 PACT FACE TO FACE NOTE STL STANDARD TITLE: NURSING NOTE DATE OF NOTE: MAY 18, 2023@10:35 ENTRY DATE: MAY 18, 2023@10:35:30 AUTHOR: BITA IRVIN EXP COSIGNER: URGENCY: STATUS: COMPLETED V15 PACT FACE TO FACE NOTE STL Has ADDENDA Provider Visit: Patient Identifiers : Full Name Date of Reason for visit: Established Follow-Up Mode of Arrival: Ambulatory Allergy Review: Patient has answered NKA Allergy list reviewed and remains current. Recent Vital Signs: Temperature: 97.8 F [36.6 C] (05/18/2023 10:28) Pulse: 75 (05/18/2023 10:28) Respiration: 16 (05/18/2023 10:28) B/P: 120/60 (05/18/2023 10:28) Pain: 2 (05/18/2023 10:28) Wt: 194 lb [88.00 kg] (05/18/2023 10:28) Ht: 73 in [185.4 cm] (05/18/2023 10:28) BMI: 25.6 POX: 97% (05/18/2023 10:28) Would you like to discuss any personal problem, family problem, alcohol use, drug use, or a mental or emotional illness? No Pain Interview Verbal patient Pain Rating Score: 2 Plan of Care: Will inform physician/provider of patient's pain. Contact provided Primary Care phone number and encouraged to call if any questions or concerns. Review that after hours nurse line [phone] and emergency room are available 04/12 for patient use. Contact verbalized good understanding. Depression Screening: Perform PHQ-2 A PHQ-2 screen was performed. The score was 0 which is a negative screen for depression. Over the past two weeks, how often have you been bothered by the following problems? 1. Little interest or pleasure in doing things Not at all 2. Feeling down, depressed, or hopeless Not at all /manuel/ BITA IRVIN LPN LICENSED PRACTICAL NURSE Signed: 05/18/2023 10:36 05/18/2023 ADDENDUM STATUS: COMPLETED COVID-19 Immunization: Pfizer Monovalent (Comirnaty) Administered: COVID-19 (PFIZER), MRNA, LNP-S, PF, FREDA-SUCROSE, 30 MCG/0.3 ML (AGES 12+ YEARS) Date Administered: May 18, 2023 10:30 Series: Series 1 Deputy Director: [id number] Lot: [id number] Exp Date: Jun 13, 2023 NDC: [id number] Admin Route/Site: INTRAMUSCULAR/RIGHT DELTOID Dosage: 0.3mL Vaccine Information Statement(s): COVID-19 MRNA VACCINE (12+ YRS) VACCINE VIS Mar 01, 2023 (TUNISIAN) Order By: Radha Administered By: Bita Irvin Vaccine administered without complications. The patient was advised to remain in the facility for 15 minutes post vaccination. Herpes Zoster (Shingles) Vaccine: Administered: ZOSTER RECOMBINANT Date Administered: May 18, 2023 10:30 Series: Series 1 Deputy Director: [employer] Lot: [id number] Exp Date: Jan 03, 2025 NDC: [id number] Admin Route/Site: INTRAMUSCULAR/LEFT DELTOID Dosage: 0.5mL Vaccine Information Statement(s): RECOMBINANT ZOSTER VACCINE VIS Jun 17, 2021 (TUNISIAN) Order By: Charline Quinteros Administered By: Bita Irvin Vaccine Information Sheet (VIS) was given to the patient/caregiver, education regarding adverse reactions was discussed, as well as barriers to learning, if any, were acknowledged. /manuel/ BITA IRVIN LPN LICENSED PRACTICAL NURSE Signed: 05/18/2023 11:58 BITA IRVIN [facility]
--- OUTSIDE RECORDS SUMMARY | 2024-05-17 21:54 | XMS_ITS | Encounter Summary ---
Author Name [place] Address [address] [place] [address] Care Team Providers Care Yarn Polishing Machine Operator Name Role Phone MEAGHAN QUINTEROS [...] PART B Aug 12, 2001 PART B [id number] B[place] BUTT PATIENT MEDICARE (WNR) MEDICARE (M) PART A Aug 12, 2001 PART A [id number] JESUS ABRAHAM PATIENT Selected Encounter This section includes the information on [place] at [place] for the Encounter. Date/Time Encounter Type Encounter Description Reason Pro vider Source October 09, 2023 10:02 AM Outpatient Encounter ADMIN PAT ACTIVTIES (MASNONCT) IHE Encounter Template Text not used by [place] Plan of Treatment: Future Appointments (+ 6 [...] 20 appointments. The data comes from all [facility]. Appointment Date/Time Appointment Type Appointme nt Facility Name October 12, 2023 10:20 AM AMBULATORY - MEDICINE [facility] Oct 15, 2023 02:00 PM AMBULATORY - SURGERY [facility] Oct 18, 2023 10:20 AM AMBULATORY - MEDICINE [facility] Nov 13, 2023 02:03 PM AMBULATORY - MEDICINE [facility] Nov 23, 2023 09:00 AM AMBULATORY - MEDICINE [facility] Nov 23, 2023 10:00 AM AMBULATORY - MEDICINE [facility] Nov 23, 2023 11:30 AM AMBULATORY - MEDICINE [facility] Dec 24, 2023 02:45 PM AMBULATORY - SURGERY [facility] Jan 01, 2024 02:00 PM AMBULATORY - REHAB MEDICIN E [facility] Feb 29, 2024 01:30 PM AMBULATORY - MEDICINE [facility] Mar 03, 2024 09:15 AM AMBULATORY - MEDICINE [facility] Mar 08, 2024 01:30 PM AMBULATORY - MEDICINE [facility] Mar 10, 2024 12:45 PM AMBULATORY - SURGERY [facility] Active, Pending, and Scheduled Orders This section includes a listing of several types of active, pending, and scheduled orders, including clinic medications orders, diagnostic test orders, procedure orders and consult orders; where the start date of the order is 45 days before the date of the Encounter or 45 days after the date of theEncounter. The data comes from all [facility]. Test Date/Time Test Type Test Details Facility Name Nov 13, 2023 09:10 PM Laboratory - Chemi stry Order MRSA SURVL NARES DNA NARES WC [facility] Nov 21, 2023 12:00 AM Laboratory - Chemi stry Order HGA1C BLOOD SP [facility] Nov 21, 2023 12:00 AM Laboratory - Chemi stry Order VITAMIN D, 25-HYDROXY GOLD/RED SST SERUM SP [facility] Social History: Smoking Status (Most current) and Tobacco Use (All prior to encounter date) This section includes the most current, and the historical, smoking and tobacco- related health factors from the [place] facility where the Encounter took place. Current Smoking Status This section includes the most current smoking, or tobacco-related health factor, from the [place] facility where the Encounter took place. Date/Time Current Smoking Status Comment Dena ity Aug 04, 2022 11:30 AM VA-TOBACCO NEVER USED [facility] Tobacco Use History This section includes a history of the smoking, or tobacco-related health factors, that were collected on or before the date of the Encounter. The data comes from the [place] facility where the Encounter took place. Date/Time Smoking Status/Tobacco Use Comment Lynnette acility Mar 11, 2021 10:30 AM VA-TOBACCO FORMER USER [facility] Mar 11, 2021 10:30 AM VA-TOBACCO QUIT 15 YRS OR MORE [facility] Apr 19, 2018 09:07 AM VA-TOBACCO FORMER USER [facility] Apr 19, 2018 09:07 AM VA-TOBACCO QUIT 15 YRS OR MORE [facility] Jul 24, 2017 08:16 AM QUIT TOBACCO >7 YEARS AGO [facility] Apr 16, 2017 12:43 PM QUIT TOBACCO >7 YEARS AGO [facility] Feb 01, 2017 11:47 AM LIFETIME NON-USER OF TOBACCO [facility] Nov 15, 2016 09:00 AM QUIT TOBACCO >7 YEARS AGO [facility] September 11, 2016 06:27 PM QUIT TOBACCO >7 YEARS AGO [facility] Dec 09, 2015 10:17 AM QUIT TOBACCO >7 YEARS AGO [facility] Jan 05, 2015 08:22 AM CURRENT TOBACCO USER [facility] Jan 05, 2015 08:22 AM TOBACCO MEDS OFFER ED BUT DECLINED [facility] Mar 18, 2014 10:40 AM CURRENT TOBACCO USER [facility] Mar 18, 2014 10:40 AM TOBACCO MEDS OFFER ED BUT DECLINED [facility] Nov 04, 2013 09:40 AM CURRENT TOBACCO USER [facility] Nov 26, 2012 08:10 AM QUIT TOBACCO >7 YEARS AGO [facility] May 03, 2009 08:45 AM QUIT TOBACCO >7 YEARS AGO [facility] Jul 06, 2008 08:46 AM CURRENT TOBACCO USER [facility] Jul 25, 2007 12:30 PM QUIT TOBACCO >12 M O & <7 YRS AGO [facility] Jun 07, 2006 09:21 AM CURRENT TOBACCO USER [facility] Jun 07, 2006 09:21 AM TOBACCO [facility] SMO[facility] Aug 25, 2005 11:01 AM CURRENT TOBACCO USER [facility] Aug 25, 2005 11:01 AM TOBACCO CONTEMPLATION STAGE [facility] Oct 25, 2004 10:18 AM CURRENT NON-TOBACC O USER-HX OF USE [facility] Oct 25, 2004 10:18 AM TOBACCO TERMINATION STAGE [facility] Aug 24, 2003 10:43 AM CURRENT NON-TOBACC O USER-HX OF USE [facility] Aug 24, 2003 10:43 AM TOBACCO TERMINATION STAGE [facility] Aug 05, 2002 09:55 AM CURRENT NON-TOBACC O USER-HX OF USE QUIT [facility] Apr 15, 2001 08:28 AM CURRENT NON-TOBACC O USER-HX OF USE quit in [address] [facility] Advance Directives: All historical and current Section Date Range: From patient's date of to the date document was created. This section includes ALL of a patient's completed or amended VA Advance and Rescinded Directives. The entries below indicate that a directive exists for the patient, but an actual copy is not included with this document. The data comes from all [place] facilities. Date Advance Directives Provider Source Oct 19, 2023 ADVANCE DIRECTIVE WANG MURILLO [facility] Dec 12, 2022 RESCINDED ADVANCE DIRECTIVE JITENDRA MEADOWS [facility] September 12, 2016 ADVANCE DIRECTIVE DISCUSSION YVETTE MEADOWS [facility] Encounter Notes: All associated encounter notes This section contains the clinical notes associated to the Encounter. Date/Time Encounter Note(s) Provider Source October 09, 2023 09:02 AM ADMINISTRATIVE NOT E: LOCAL TITLE: CCC: SCHEDULING ADMINISTRATION STANDARD TITLE: ADMINISTRATIVE NOTE DATE OF NOTE: OCTOBER 09, 2023@09:02:15 ENTRY DATE: OCTOBER 09, 2023@09:02:16 AUTHOR: ALBA DE LA TORRE EXP COSIGNER: URGENCY: STATUS: COMPLETED CCC: SCHEDULING ADMINISTRATION Has ADDENDA Patient Demographics Patient Name: JESUS ABRAHAM Patient Primary Phone: [phone] Patient Primary Address: [address] [place] [address] Patient : 1935 Patient Age: 88 Current Location: [facility] Call Back Number: [phone] Caller/Recipient Relation to Patient: Caregiver Caller Name: PATIOENT/GRANDDAUGHTER NHAN Administrative Administrative Note Reason: Other Administrative Note Comments: PATIENT HAS GIVEN THIS BOW MAKER PERMISSION TO SPEAK TO HIS GRANDDAUGHTER NHAN ON HIS BEHALF. CALLER IS REQUESTING TO SPEAK TO THE PATIENT'S HAL-[facility] C6 PCP NURSE IN REGARDS TO REQUESTING FOR LABS TO BE PLACED AND ORDERED FOR THE PATIENT, AND TO BE SENT OVER TO HIS ASSISTED LIVING FACILITY TO BE DRAWN FOR THE PATIENT, PER CALLER'S REQUEST. PLEASE CALL HER AT [phone] TO DISCUSS PLEASE, THANK YOU. /pennie DE LA TORRE Advance Brush Machine Setter Signed: 10/09/2023 09:02 Receipt Acknowledged By: 10/09/2023 12:26 /pennie DAWSON Registered Nurse 10/09/2023 ADDENDUM STATUS: COMPLETED RNCM called patient's granddaughter back [phone] , and advised to call [phone] and schedule a Same day clinic appt. for evaluation, agree with this plan of care. /pennie DAWSON Registered Nurse Signed: 10/09/2023 12:25 ALBA DE LA TORRE [facility]
--- OUTSIDE RECORDS SUMMARY | 2024-05-17 21:54 | XMS_ITS | Encounter Summary ---
Author Name [facility] [place] Address [address] [place] [address] Care Team Providers Care Parking Supervisor Name Role Phone MEAGHAN QUINTEROS Primary [...] PART A Aug 12, 2001 PART A [id number] JESUS ABRAHAM PATIENT MEDICARE (WNR) MEDICARE (M) PART B Aug 12, 2001 PART B [id number] JESUS ABRAHAM PATIENT Selected Encounter This section includes the information on record at [place] for the Encounter. Date/Time Encounter Type Encounter Description Reason Provider Source October 09, 2023 09:30 AM Outpatient Encounter TELEPHONE TRIAGE WU MOLINA Encounter Template Text not used by [place] [...] 20 appointments. The data comes from all [facility]. Appointment Date/Time Appointment Type Appointme nt Facility Name October 12, 2023 10:20 AM AMBULATORY - MEDICINE [facility] Oct 15, 2023 02:00 PM AMBULATORY - SURGERY [facility] Oct 18, 2023 10:20 AM AMBULATORY - MEDICINE [facility] Nov 13, 2023 02:03 PM AMBULATORY - MEDICINE [facility] Nov 23, 2023 09:00 AM AMBULATORY - MEDICINE [facility] Nov 23, 2023 10:00 AM AMBULATORY - MEDICINE [facility] Nov 23, 2023 11:30 AM AMBULATORY - MEDICINE [facility] Dec 24, 2023 02:45 PM AMBULATORY - SURGERY [facility] Jan 01, 2024 02:00 PM AMBULATORY - REHAB MEDICIN E [facility] Feb 29, 2024 01:30 PM AMBULATORY - MEDICINE [facility] Mar 03, 2024 09:15 AM AMBULATORY - MEDICINE [facility] Mar 08, 2024 01:30 PM AMBULATORY - MEDICINE [facility] Mar 10, 2024 12:45 PM AMBULATORY - SURGERY [facility] Active, Pending, and Scheduled Orders This section includes a listing of several types of active, pending, and scheduled orders, including clinic medications orders, diagnostic test orders, procedure orders and consult orders; where the start date of the order is 45 days before the date of the Encounter or 45 days after the date of theEncounter. The data comes from all [facility]. Test Date/Time Test Type Test Details Facility Name Nov 13, 2023 09:10 PM Laboratory - Chemi stry Order MRSA SURVL NARES DNA NARES WC [facility] Nov 21, 2023 12:00 AM Laboratory - Chemi stry Order HGA1C BLOOD SP [facility] Nov 21, 2023 12:00 AM Laboratory - Chemi stry Order VITAMIN D, 25-HYDROXY GOLD/RED SST SERUM SP [facility] Social History: Smoking Status (Most current) [...] 2022 11:30 AM VA-TOBACCO NEVER USED [facility] Tobacco Use History This section includes a history of the smoking, or tobacco-related health factors, that were collected on or before the date of the Encounter. The data comes from the [place] facility where the Encounter took place. Date/Time Smoking Status/Tobacco Use Comment Lynnette acbailey Mar 11, 2021 10:30 AM VA-TOBACCO FORMER USER [facility] Mar 11, 2021 10:30 AM VA-TOBACCO QUIT 15 YRS OR MORE [facility] Apr 19, 2018 09:07 AM VA-TOBACCO FORMER USER [facility] Apr 19, 2018 09:07 AM VA-TOBACCO QUIT 15 YRS OR MORE [facility] Jul 24, 2017 08:16 AM QUIT TOBACCO >7 YEARS AGO [facility] Apr 16, 2017 12:43 PM QUIT TOBACCO >7 YEARS AGO [facility] Feb 01, 2017 11:47 AM LIFETIME NON-USER OF TOBACCO [facility] Nov 15, 2016 09:00 AM QUIT TOBACCO >7 YEARS AGO [facility] September 11, 2016 06:27 PM QUIT TOBACCO >7 YEARS AGO [facility] Dec 09, 2015 10:17 AM QUIT TOBACCO >7 YEARS AGO [facility] Jan 05, 2015 08:22 AM CURRENT TOBACCO USER [facility] Jan 05, 2015 08:22 AM TOBACCO MEDS OFFER ED BUT DECLINED [facility] Mar 18, 2014 10:40 AM CURRENT TOBACCO USER [facility] Mar 18, 2014 10:40 AM TOBACCO MEDS OFFER ED BUT DECLINED [facility] Nov 04, 2013 09:40 AM CURRENT TOBACCO USER [facility] Nov 26, 2012 08:10 AM QUIT TOBACCO >7 YEARS AGO [facility] May 03, 2009 08:45 AM QUIT TOBACCO >7 YEARS AGO [facility] Jul 06, 2008 08:46 AM CURRENT TOBACCO USER [facility] Jul 25, 2007 12:30 PM QUIT TOBACCO >12 M O & <7 YRS AGO [facility] Jun 07, 2006 09:21 AM CURRENT TOBACCO USER [facility] Jun 07, 2006 09:21 AM TOBACCO [facility] SMOKING CLINIC [facility] Aug 25, 2005 11:01 AM CURRENT TOBACCO USER [facility] Aug 25, 2005 11:01 AM TOBACCO CONTEMPLATION STAGE [facility] Oct 25, 2004 10:18 AM CURRENT NON-TOBACC O USER-HX OF USE [facility] Oct 25, 2004 10:18 AM TOBACCO TERMINATION STAGE [facility] Aug 24, 2003 10:43 AM CURRENT NON-TOBACC O USER-HX OF USE [facility] Aug 24, 2003 10:43 AM TOBACCO TERMINATION STAGE [facility] Aug 05, 2002 09:55 AM CURRENT NON-TOBACC O USER-HX OF USE QUIT [facility] Apr 15, 2001 08:28 AM CURRENT NON-TOBACC O USER-HX OF USE quit in 1979 [facility] Advance Directives: All historical and [...] Oct 19, 2023 ADVANCE DIRECTIVE WANG MURILLO [facility] Dec 12, 2022 RESCINDED ADVANCE DIRECTIVE JITENDRA MEADOWS [facility] September 12, 2016 ADVANCE DIRECTIVE DISCUSSION YVETTE MEADOWS [facility] Encounter Notes: All associated encounter notes This section contains the clinical notes associated to the Encounter. Date/Time Encounter Note(s) Provider Source October 09, 2023 09:30 AM PHARMACY NOTE: LOCAL TITLE: PHARMACY CONTACT CENTER NOTE STANDARD TITLE: PHARMACY NOTE DATE OF NOTE: OCTOBER 09, 2023@09:30 ENTRY DATE: OCTOBER 09, 2023@09:31:01 AUTHOR: JENNIFER SALTER EXP COSIGNER: URGENCY: STATUS: COMPLETED MEDICATION RENEW [id number] SUBSTANCE: Who is contacting the VA? /Patient Contact via: Phone Requesting renewal of medication: MECLIZINE HCL 25MG CHEW TAB [id number] 10/07/2023 10/06/2022 10/06/2022 2 VARUN LARA375 CHEW AND SWALLOW ONE-HALF TABLET BY MOUTH THREE TIMES A DAY NEEDED Please send medication: Mail Disposition: Notification forwarded to provider for review of renewal request. /manuel/ JENNIFER GAMINO 15 [facility] ACCOUNT SUPPORT ANALYST Signed: 10/09/2023 09:32 Receipt Acknowledged By: 10/10/2023 10:21 /manuel/ MEAGHAN QUINTEROS MD STAFF PHYSICIAN JENNIFER SALTER [facility]
--- OUTSIDE RECORDS SUMMARY | 2024-05-17 21:54 | XMS_ITS | Encounter Summary ---
Author Name [facility] [place] Organization [facility] Address [address] [place] [address] Care Team Providers Care Forms Analyst Name Role Phone MEAGHAN QUINTEROS Primary Care [...] PART A Aug 12, 2001 PART A [id number] JESUS ABRAHAM PATIENT MEDICARE (WNR) MEDICARE (M) PART B Aug 12, 2001 PART B [id number] [phone] TOBIDANAYJESUS BUTT PATIENT Selected Encounter This section includes the information on record at [place] for the Encounter. 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 Date/Time Primary/Secondary Diagnosis Diagnosis Name Provider Source Jul 30, 2023 02:37 PM PRIMARY Exdtve age-rel mclr degn, left eye, with actv chrdl DAE Caldwell [facility] Jul 30, 2023 02:37 PM SECONDARY Exdtve age-rel mclr degn, right eye, with inact chrdl DAE Caldwell [facility] Plan of Treatment: Future Appointments (+ 6 months) and Future Tests (+/- 45 days) The Plan of Treatment section includes future care activities for the patient [facility] [place] [facility] This section includes future appointments and future orders which are active, pending or scheduled. Future Appointments This section includes appointments that were scheduled to occur 6 months from the date of the Encounter, up to a maximum of 20 appointments. The data comes from all [place] treatment facilities. Appointment Date/Time Appointment Type Appointme nt Facility Name October 12, 2023 10:20 AM AMBULATORY - MEDICINE [facility] Oct 15, 2023 02:00 PM AMBULATORY - SURGERY [facility] Oct 18, 2023 10:20 AM AMBULATORY - MEDICINE [facility] Nov 13, 2023 02:03 PM AMBULATORY - MEDICINE [facility] Nov 23, 2023 09:00 AM AMBULATORY - MEDICINE [facility] Nov 23, 2023 10:00 AM AMBULATORY - MEDICINE [facility] Nov 23, 2023 11:30 AM AMBULATORY - MEDICINE [facility] Dec 24, 2023 02:45 PM AMBULATORY - SURGERY [facility] Jan 01, 2024 02:00 PM AMBULATORY - REHAB MEDICIN E [facility] Social History: Smoking Status (Most [...] Radha sarkar Aug 04, 2022 11:30 AM [place]-TOBACCO NEVER USED [facility] Tobacco Use History This section includes a history of the smoking, or tobacco-related health factors, that were collected on or before the date of the Encounter. The data comes from the [place] facility where the Encounter took place. Date/Time Smoking Status/Tobacco Use Comment F acility Mar 11, 2021 10:30 AM VA-TOBACCO FORMER USER [facility] Mar 11, 2021 10:30 AM VA-TOBACCO QUIT 15 YRS OR MORE [facility] Apr 19, 2018 09:07 AM VA-TOBACCO FORMER USER [facility] Apr 19, 2018 09:07 AM VA-TOBACCO QUIT 15 YRS OR MORE [facility] Jul 24, 2017 08:16 AM QUIT TOBACCO >7 YEARS AGO [facility] Apr 16, 2017 12:43 PM QUIT TOBACCO >7 YEARS AGO [facility] Feb 01, 2017 11:47 AM LIFETIME NON-USER OF TOBACCO [facility] Nov 15, 2016 09:00 AM QUIT TOBACCO >7 YEARS AGO [facility] September 11, 2016 06:27 PM QUIT TOBACCO >7 YEARS AGO [facility] Dec 09, 2015 10:17 AM QUIT TOBACCO >7 YEARS AGO [facility] Jan 05, 2015 08:22 AM CURRENT TOBACCO USER [facility] Jan 05, 2015 08:22 AM TOBACCO MEDS OFFER ED BUT DECLINED [facility] Mar 18, 2014 10:40 AM CURRENT TOBACCO USER [facility] Mar 18, 2014 10:40 AM TOBACCO MEDS OFFER ED BUT DECLINED [facility] Nov 04, 2013 09:40 AM CURRENT TOBACCO USER [facility] Nov 26, 2012 08:10 AM QUIT TOBACCO >7 YEARS AGO [facility] May 03, 2009 08:45 AM QUIT TOBACCO >7 YEARS AGO [facility] Jul 06, 2008 08:46 AM CURRENT TOBACCO USER [facility] Jul 25, 2007 12:30 PM QUIT TOBACCO >12 M O & <7 YRS AGO [facility] Jun 07, 2006 09:21 AM CURRENT TOBACCO USER [facility] Jun 07, 2006 09:21 AM TOBACCO OFFERRED S [facility] SMOKING CLINIC [facility] Aug 25, 2005 11:01 AM CURRENT TOBACCO USER [facility] Aug 25, 2005 11:01 AM TOBACCO CONTEMPLATION STAGE [facility] Oct 25, 2004 10:18 AM CURRENT NON-TOBACC O USER-HX OF USE [facility] Oct 25, 2004 10:18 AM TOBACCO TERMINATION STAGE [facility] Aug 24, 2003 10:43 AM CURRENT NON-TOBACC O USER-HX OF USE [facility] Aug 24, 2003 10:43 AM TOBACCO TERMINATION STAGE [facility] Aug 05, 2002 09:55 AM CURRENT NON-TOBACC O USER-HX OF USE QUIT [facility] Apr 15, 2001 08:28 AM CURRENT NON-TOBACC O USER-HX OF USE quit in 1979 [facility] Advance Directives: All historical and [...] Oct 19, 2023 ADVANCE DIRECTIVE WANG MURILLO [facility] Dec 12, 2022 RESCINDED ADVANCE DIRECTIVE JITENDRA MEADOWS [facility] September 12, 2016 ADVANCE DIRECTIVE DISCUSSION YVETTE MEADOWS [facility] Encounter Notes: All associated encounter notes This section contains the clinical notes associated to the Encounter. Date/Time Encounter Note(s) Provider Source Jul 30, 2023 02:09 PM OPHTHALMOLOGY CONS ULT: LOCAL TITLE: OPHTHALMOLOGY CONSULT ST STANDARD TITLE: OPHTHALMOLOGY CONSULT DATE OF NOTE: JUL 30, 2023@14:09 ENTRY DATE: JUL 30, 2023@14:09:32 AUTHOR: DAE LOAIZA EXP COSIGNER: URGENCY: STATUS: COMPLETED [facility] CC/HPI: Here for wet AMD f/u. Feels vision is the same. VA OD 20/200 was 20/200 was sc 20/200-1 (MD fernandez) was 20/200 was 20/80 was 20/80 was 20/200-1 OS 20/40-3 was 20/40 was 20/40 was 20/60 was 20/50 was 20/40 was 20/40 was 20/40 was 20/50-1 IOP 19/18 SLEx OD OS L/L wnl wnl [...] TAMMY mildly increased SRF 10 07/30/23 TAMMY IMAGING Fundus photos 04/18/21 OD RPE change [...] OD: GA, dry OS: drusen, improved SRF A/P #Wet AMD OU - +AG, [...] sub-retinal hemorrhage, resolved by 02/07/21. - TE 10w->11w FYI, patient prefers proparacaine soaked qtip rather than subconj lido Do inferotemp so qtip can sit for 5 minutes Procedure: Intravitreal Eylea/aflibercept, LEFT eye (TAMMY OS) - Consent updated on 12/18/22 - Risks, benefits, and alternatives discussed - [...] No complications. 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
--- OUTSIDE RECORDS SUMMARY | 2024-05-17 21:54 | XMS_ITS | Encounter Summary ---
Author Name [facility] [facility] [place] [facility] [place] Address [address] [place] [address] Care Team Providers Care Windows Software Engineer Name Role Phone MEAGHAN QUINTEROS Primary [...] PART A Aug 12, 2001 PART A [id number] [phone] BARRINGTONJESUS BUTT PATIENT MEDICARE (WNR) MEDICARE (M) PART B Aug 12, 2001 PART B [id number] [phone] JESUS ABRAHAM PATIENT Selected Encounter This section includes the information on record at [place] for the Encounter. 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 Date/Time Primary/Secondary Diagnosis Diagnosis Name Provider Source Jul 30, 2023 01:45 PM PRIMARY Exdtve age-rel mclr degn, right eye, with inact chrdl DIANE Hong [facility] Plan of Treatment: Future Appointments (+ 6 months) and Future Tests (+/- 45 days) The Plan of Treatment section includes future care activities for the patient [facility] [place] [facility] This section includes future appointments and future orders which are active, pending or scheduled. Future Appointments This section includes appointments that were scheduled to occur 6 months from the date of the Encounter, up to a maximum of 20 appointments. The data comes from all [place] treatment facilities. Appointment Date/Time Appointment Type Appointme nt Facility Name October 12, 2023 10:20 AM AMBULATORY - MEDICINE [facility] Oct 15, 2023 02:00 PM AMBULATORY - SURGERY [facility] Oct 18, 2023 10:20 AM AMBULATORY - MEDICINE [facility] Nov 13, 2023 02:03 PM AMBULATORY - MEDICINE [facility] Nov 23, 2023 09:00 AM AMBULATORY - MEDICINE [facility] Nov 23, 2023 10:00 AM AMBULATORY - MEDICINE [facility] Nov 23, 2023 11:30 AM AMBULATORY - MEDICINE [facility] Dec 24, 2023 02:45 PM AMBULATORY - SURGERY [facility] Jan 01, 2024 02:00 PM AMBULATORY - REHAB MEDICIN E [facility] Social History: Smoking Status (Most [...] 11:30 AM VA-TOBACCO NEVER USED [facility] Tobacco Use History This section includes a history of the smoking, or tobacco-related health factors, that were collected on or before the date of the Encounter. The data comes from the [place] facility where the Encounter took place. Date/Time Smoking Status/Tobacco Use Comment F acility Mar 11, 2021 10:30 AM VA-TOBACCO FORMER USER [facility] Mar 11, 2021 10:30 AM VA-TOBACCO QUIT 15 YRS OR MORE [facility] Apr 19, 2018 09:07 AM VA-TOBACCO FORMER USER [facility] Apr 19, 2018 09:07 AM VA-TOBACCO QUIT 15 YRS OR MORE [facility] Jul 24, 2017 08:16 AM QUIT TOBACCO >7 YEARS AGO [facility] Apr 16, 2017 12:43 PM QUIT TOBACCO >7 YEARS AGO [facility] Feb 01, 2017 11:47 AM LIFETIME NON-USER OF TOBACCO [facility] Nov 15, 2016 09:00 AM QUIT TOBACCO >7 YEARS AGO [facility] September 11, 2016 06:27 PM QUIT TOBACCO >7 YEARS AGO [facility] Dec 09, 2015 10:17 AM QUIT TOBACCO >7 YEARS AGO [facility] Jan 05, 2015 08:22 AM CURRENT TOBACCO USER [facility] Jan 05, 2015 08:22 AM TOBACCO MEDS OFFER ED BUT DECLINED [facility] Mar 18, 2014 10:40 AM CURRENT TOBACCO USER [facility] Mar 18, 2014 10:40 AM TOBACCO MEDS OFFER ED BUT DECLINED [facility] Nov 04, 2013 09:40 AM CURRENT TOBACCO USER [facility] Nov 26, 2012 08:10 AM QUIT TOBACCO >7 YEARS AGO [facility] May 03, 2009 08:45 AM QUIT TOBACCO >7 YEARS AGO [facility] Jul 06, 2008 08:46 AM CURRENT TOBACCO USER [facility] Jul 25, 2007 12:30 PM QUIT TOBACCO >12 M O & <7 YRS AGO [facility] Jun 07, 2006 09:21 AM CURRENT TOBACCO USER [facility] Jun 07, 2006 09:21 [facility] Aug 25, 2005 11:01 AM CURRENT TOBACCO USER [facility] Aug 25, 2005 11:01 AM TOBACCO CONTEMPLATION STAGE [facility] Oct 25, 2004 10:18 AM CURRENT NON-TOBACC O USER-HX OF USE [facility] Oct 25, 2004 10:18 AM TOBACCO TERMINATION STAGE [facility] Aug 24, 2003 10:43 AM CURRENT NON-TOBACC O USER-HX OF USE [facility] Aug 24, 2003 10:43 AM TOBACCO TERMINATION STAGE [facility] Aug 05, 2002 09:55 AM CURRENT NON-TOBACC O USER-HX OF USE QUIT [facility] Apr 15, 2001 08:28 AM CURRENT NON-TOBACC O USER-HX OF USE quit in 1979 [facility] Advance Directives: All historical [...] ADVANCE DIRECTIVE WANG MURILLO [facility] Dec 12, 2022 RESCINDED ADVANCE DIRECTIVE JITENDRA MEADOWS [facility] September 12, 2016 ADVANCE DIRECTIVE DISCUSSION YVETTE MEADOWS [facility] Encounter Notes: All associated encounter notes This section contains the clinical notes associated to the Encounter. Date/Time Encounter Note(s) Provider Source Jul 30, 2023 01:45 PM OPHTHALMOLOGY NOTE : LOCAL TITLE: OPHTHALMOLOGY NOTE [facility] STANDARD TITLE: OPHTHALMOLOGY NOTE DATE OF NOTE: JUL 30, 2023@13:45 ENTRY DATE: JUL 30, 2023@13:45:10 AUTHOR: DIANE TANNER EXP COSIGNER: URGENCY: STATUS: COMPLETED OCT OU Complete. Results in Forum for provider review. /manuel/ DIANE TANNER HEALTH CUSTOM STUDIO COORDINATOR,OPHTHALMOLOGY Signed: 07/30/2023 13:45 DIANE TANNER [facility]
--- OUTSIDE RECORDS SUMMARY | 2024-05-17 21:54 | XMS_ITS | Encounter Summary ---
Author Name [facility] [facility] [place] [facility] [place] Address [address] [place] [address] Care Team Providers Care Small Animal Veterinarian Name Role Phone MEAGHAN QUINTEROS Primary Care [...] PART A Aug 12, 2001 PART A [id number] [phone] JESUS ABRAHAM PATIENT MEDICARE (WNR) MEDICARE (M) PART B Aug 12, 2001 PART B [id number] JESUS ABRAHAM PATIENT Selected Encounter This section includes the information on record at [place] for the Encounter. Date/Time Encounter Type Encounter Description Reason Provider Source May 21, 2023 01:30 PM OFFICE O/P EST LOW 20 MIN OPHTHALMOLOGY ICD-10-CM H35.321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, right eye, with inact chrdl neovas KILEY TENORIO IHOlesya Encounter Template Text not used by VA Assessments - Encounter Diagnoses This section includes the primary and secondary diagnoses documented for the Encounter. 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 This section includes future appointments and future orders which are active, pending or scheduled. Future Appointments This section includes appointments that were scheduled to occur 6 months from the date of the Encounter, up to a maximum of 20 appointments. The data comes from all [place] treatment facilities. Appointment Date/Time Appointment Type Appointme nt Facility Name Jul 30, 2023 01:00 PM AMBULATORY - SURGERY [facility] Jul 30, 2023 02:00 PM AMBULATORY - SURGERY [facility] October 12, 2023 10:20 AM AMBULATORY - MEDICINE [facility] Oct 15, 2023 02:00 PM AMBULATORY - SURGERY [facility] Oct 18, 2023 10:20 AM AMBULATORY - MEDICINE [facility] Nov 13, 2023 02:03 PM AMBULATORY - MEDICINE [facility] Lab Results: +/- 30 days of the encounter This section includes the Chemistry and Hematology Lab Results on record with [place] for the patient. Radiology Reports and Pathology Reports are provided separately, in subsequent sections. Lab Results This section contains the Chemistry/Hematology Results that were resulted 30 days before or 30 daysafter the date of the Encounter. Date/Time Source Result Type Result - Unit Interpretation Reference Range Comment May 18, 2023 10:09 AM [facility] HGA1C Specimen Type: BLOOD No comment entered. Ordering Provider: MEAGHAN QUINTEROS Report Released Date/Time: May 16, 2023 12:53 PM Reporting Lab: [place] [address] [facility] [address] Performing Lab: [address] [place] [address] HGA1C 7.3 H 4.0-6.0 May 18, 2023 10:09 AM [facility] LIPID PANEL (STL) Specimen Type: PLASMA Comment: No hemolysis noted. Ordering Provider: MEAGHAN QUINTEROS Report Released Date/Time: May 16, 2023 12:53 PM Reporting Lab: [place] [address] [facility] [address] Performing Lab: [place] [address] [facility] [address] CHOLESTEROL 151 mg/dL 0-200 TRIGLYCERIDE 63 mg/dL 0-150 CALCULATED LDL 82 mg/dL HDL(New) 56 mg/dL >40 May 18, 2023 10:09 AM [facility] TSH (MA-PB-STL) Specimen Type: SERUM No comment entered. Ordering Provider: MEAGHAN QUINTEROS Report Released Date/Time: May 16, 2023 12:53 PM Reporting Lab: [place] [address] [facility] [address] Performing Lab: [address] [address] TSH 3.996 u[IU]/mL 0.47-5 May 18, 2023 10:09 AM [facility] VITAMIN D, 25-HYDROXY Specimen Type: SERUM No comment entered. Ordering Provider: MEAGHAN QUINTEROS Report Released Date/Time: May 16, 2023 12:53 PM Reporting Lab: [facility] [address] [facility] [address] Performing Lab: [address] [address] VITAMIN D, 25-HYDROXY 20.0 ng/mL L 30-96 May 18, 2023 10:09 AM [facility] RENAL PANEL Specimen Type: PLASMA Comment: No hemolysis noted. Ordering Provider: MEAGHAN QUINTEROS Report Released Date/Time: May 16, 2023 12:53 PM Reporting Lab: [place] [address] [facility] [address] Performing Lab: [facility] [address] [facility] [address] CREATININE 0.82 mg/dL 0.7-1.3 UREA NITROGEN 8.8 mg/dL L 9.0-25.0 GLUCOSE 125 mg/dL H 72-99 SODIUM 135 meq/L L 136-145 POTASSIUM 4.1 meq/L 3.5-5 CHLORIDE 101 meq/L 98-107 CARBON DIOXIDE 24 meq/L 22-31 CALCIUM 9.4 mg/dL 8.4-10.4 PHOSPHOROUS 3.6 mg/dL 2.3-4.7 ALBUMIN 4.3 g/dL 3.4-5 EGFR (CKD-EPI 2020) 85.6 >60 May 03, 2023 12:55 PM [facility] BRAIN NATRIURETIC PEPTIDE Specimen Type: PLASMA No comment entered. Ordering Provider: JENA QUINTEROS Report Released Date/Time: May 03, 2023 12:49 PM Reporting Lab: [address] [address] Performing Lab: [address] [address] BRAIN NATRIURETIC PEPTIDE 105.5 pg/mL H 0-100 May 03, 2023 12:55 PM [facility] COVID-19 SCREENING PANEL (STL-PB) Specimen Type: NASOPHARYNX [...] May 03, 2023 12:49 PM Reporting Lab: [facility] [address] [facility] [address] Performing Lab: [address] [address] COVID-19 (STL-PB) Not Detected Not Detected May 03, 2023 12:55 PM [facility] TROPONIN I Specimen Type: PLASMA Comment: No hemolysis noted. Ordering Provider: JENA QUINTEROS Report Released Date/Time: May 03, 2023 12:49 PM Reporting Lab: [address] [address] Performing Lab: [address] [address] TROPONIN I 0.017 ng/mL 0-0.033 May 03, 2023 12:55 PM [facility] COMPREHENSIVE METABOLIC PANEL Specimen Type: PLASMA Comment: No hemolysis noted. Ordering Provider: JENA QUINTEROS Report Released Date/Time: May 03, 2023 12:49 PM Reporting Lab: [address] [address] Performing Lab: [address] [address] CREATININE 0.81 mg/dL 0.7-1.3 UREA NITROGEN 9.1 [...] 85.9 >60 May 03, 2023 12:55 PM [facility] CBC Specimen Type: BLOOD No comment entered. Ordering Provider: JENA QUINTEROS Report Released Date/Time: May 03, 2023 12:49 PM Reporting Lab: [address] [address] Performing Lab: [address] [facility] [address] WBC 9.4 10*3/uL 3.6-11.2 RBC 4.28 10*6/uL [...] 1.64 10*3/uL 0.77-4.50 NEUT#-MDIFF 6.13 10*3/uL 2.10-8.00 Social History: Smoking Status (Most [...] USER [facility] Mar 11, 2021 10:30 AM [place]-TO[place] QUIT 15 YRS OR MORE [facility] Jun 07, 2006 09:21 [facility] Aug 25, [...] this document. The data comes from all [place] facilities. Date Advance Directives Provider Source Oct 19, 2023 ADVANCE DIRECTIVE WANG MURILLO [facility] Dec 12, 2022 RESCINDED ADVANCE DIRECTIVE JITENDRA MEADOWS [facility] September 12, 2016 ADVANCE DIRECTIVE DISCUSSION YVETTE MEADOWS [facility] Radiology Reports: +/- 30 days of [...] treatment facilities. Date/Time Radiology Report Provider Source May 03, 2023 01:36 PM CHEST X-RAY, 2 VIE WS: JESUS ABRAHAM [id number] M Exm Date: MAY 03, 2023@13:36 Req Phys: EJNA QUINTEROS Loc: -EMERGENCY DEPT 2ND SHIFT (R Img Loc: -MAIN RADIOLOGY SUITE Service: Unknown (Case [id number] COMPLETE) CHEST X-RAY, 2 VIEWS (RAD Detailed) CPT:50117 Reason for Study: chest pain Clinical History: Report Status: Verified Date Reported: MAY 03, 2023 Date Verified: MAY 03, 2023 After School Program Teacher E-Sig:/ES/AMBER HAMPTON Report: CASE [id number]. Chest, PA and lateral views. COMPARISON: PA and lateral views of the chest dated 03/11/2021. FINDINGS: Lungs: The lungs are clear of airspace opacity. Mediastinum/Mari: The cardiomediastinal silhouette and pulmonary vascularity appear normal. Calcified perihilar granulomas are unchanged. Pleura: No pleural effusion or pneumothorax. Impression: No acute cardiopulmonary process. Report dictated by Shahriar Granados D.O. (radiology physician assistant) IAmber, have reviewed the images and report and concur with these findings. Primary Interpreting Staff: AMBER HAMPTON MD (After School Program Teacher) Primary Interpreting Resident: Shahriar Granados D.O., Resident Physician /AMBER MACDONALD [facility] Encounter Notes: All associated encounter notes This section contains the clinical notes associated to the Encounter. Date/Time Encounter Note(s) Provider Source May 21, 2023 02:36 PM OPHTHALMOLOGY NOTE : LOCAL TITLE: OPHTHALMOLOGY NOTE STL STANDARD TITLE: OPHTHALMOLOGY NOTE DATE OF NOTE: MAY 21, 2023@14:36 ENTRY DATE: MAY 21, 2023@14:36:56 AUTHOR: KILEY TENORIO EXP COSIGNER: URGENCY: STATUS: COMPLETED OPHTHALMOLOGY NOTE [facility]L [facility] CC/HPI: Here for wet AMD f/u. Feels vision is the same. [place] OD 20/200 was sc 20/200-1 (MD fernandez) was 20/200 was 20/80 was 20/80 was 20/200-1 OS 20/40 was 20/60 was 20/50 was 20/40 was 20/40 was 20/40 was 20/50-1 IOP 20/18 SLEx OD OS L/L wnl wnl C/S w/q w/q K clr clr AC d/q d/q I r/r, no NVI r/r, no NVI L PCIOL PCIOL AV synresis syneresis DFEx RE D: 0.2, pink, nl, no rim thinning, peripapillary atrophy M: GA, no hemorrhage V: normal caliber, perfused P: flat LE D: pink, nl, no rim thinning, peripapillary atrophy M: nasal JALYN, no heme centrally no heme V: normal caliber, perfused P: flat INTRAVITREAL INJECTION LOG (OD) RIGHT EYE #Wks Date Med. # Response (+/-/=) ----- n/a 02/18/20 TAMMY 1 5 03/22/20 TAMMY [...] EYE #Wks Date Med. # Response (+/-/=) ----- Injections since 201404/18/21 n/a no fluid, no [...] increased? 9 12/18/22 TAMMY tr SRF stable IMAGING Fundus photos 04/18/21 OD RPE change [...] OD: GA, dry OS: drusen, increased SRF A/P #Wet AMD OU - +AG, [...] sub-retinal hemorrhage, resolved by 02/07/21. - TE 12->10w FYI, patient prefers proparacaine soaked qtip rather [...] complications. 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 referring next available /manuel/ KILEY TENORIO Staff Physician-Ophthalmology Signed: 05/21/2023 15:01 KILEY TENORIO [facility] May 21, 2023 02:30 PM OPHTHALMOLOGY CONS ULT: LOCAL TITLE: OPHTHALMOLOGY CONSULT STL STANDARD TITLE: OPHTHALMOLOGY CONSULT DATE OF NOTE: MAY 21, 2023@14:30 ENTRY DATE: AUG 02, 2023@08:36:22 AUTHOR: DAVION FIGUEROA EXP COSIGNER: URGENCY: STATUS: COMPLETED Administratively completing OCT consult See provider interpretation below OCT mac 05/21/23 OD: GA, dry OS: drusen, increased SRF /pennie FIGUEROA Cable Assembler And Swager Signed: 08/02/2023 08:36 DAVION FIGUEROA [facility] May 21, 2023 02:17 PM OPHTHALMOLOGY NOTE : LOCAL TITLE: OPHTHALMOLOGY NOTE STL STANDARD TITLE: OPHTHALMOLOGY NOTE DATE OF NOTE: MAY 21, 2023@14:17 ENTRY DATE: MAY 21, 2023@14:17:46 AUTHOR: RUFINO REED EXP COSIGNER: URGENCY: STATUS: COMPLETED TESTING OBTAINED: None INITIAL EYE SCREEN LAST VISIT: 02/26/2023 CHIEF COMPLAINT: States having a hard time reading small print close up OCULAR REVIEW OF SYSTEMS: VISUAL ACUITY With Out Correction OD: 20/200-2 OS: 20/60-2 AUTO REFRACTION SUBJ: OD: -1.25 +2.00 15 OS: -2.50 +3.25 8 VISUAL ACUITY WITH AUTO REFRACTION: OD: 20/200-1 OS: 20/40-2 LENSOMETER: OD: N/A OS: N/A OPTHALMIC MEDICATIONS ADMINISTERED @ 1429 TONOPEN: OD: 19 OS: 19 DILATION Ophthetic 0.5% One drop Both eyes Tropicamide 1% One drop Both eyes Phenylephrine 2.5% One drop Both eyes /es/ RUFINO REED SPRAY PAINTING MACHINE OPERATOR Signed: 05/21/2023 14:32 RUFINO REED [facility]
== END 2024-05-10 14:38 | disposition home or self-care (01) ==
PROVIDERS: Emergency Medicine; Emergency Provider Emergency Medicine
DX: R09.1 Pleurisy (principal); R07.89 Other chest pain; Z20.822 Contact with and (suspected) exposure to COVID-19; I10 Essential (primary) hypertension; Z85.038 Personal history of other malignant neoplasm of large intestine; Z85.51 Personal history of malignant neoplasm of bladder; Z96.659 Presence of unspecified artificial knee joint; R00.1 Bradycardia, unspecified; I45.2 Bifascicular block; I49.1 Atrial premature depolarization
CPT/HCPCS: 36415; 71046; 80053; 83690; 84484; 85025; 85610; 85730; 87637; 93005; 99284

== ENCOUNTER 2024-06-23 15:39 | Inpatient (IN) | payer MEDICARE, OTHER, SELFPAY ==
--- NOTE | ~2024-06-23 | CT_ITS ---
CLINICAL INDICATION: Abdominal distention. Personal history of colon cancer, and bladder cancer. Recent urinary tract infection. COMPARISON: None. TECHNIQUE: Multiple contiguous axial images of the abdomen and pelvis were performed following the ad ministration of with 100 mL Omnipaque-350 intravenous contrast The dose-length product (DLP) was 741.29 mGy-cm. Automated exposure control and iterative reconstruction technique were employed. FINDINGS/OBSERVATIONS: Visualized lower thorax: Calcified pleural plaques pleural thickening, and peripheral honeycombing. 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 The remainder of the bilateral lung bases are clear. The heart is enlarged, without pericardial effusion. Liver: The liver enhances homogeneously and is not enlarged measuring 18 cm in longitudinal dimension. Gallbladder and biliary system: The gallbladder is only minimally distended, contains multiple calcified stones and otherwise unremar kable. Pancreas: The pancreas enhances homogeneously without ductal dilatation. Spleen: The spleen enhances homogeneously and is not enlarged measuring 4 cm in longitudinal dimension. Kidneys: The bilateral kidneys enhance symmetrically without hydronephrosis or renal calculi. Adrenal glands: Unremarkable. Gastrointestinal tract: Colonic diverticulosis without surrounding inflammatory change. Appendix: The air-filled appendix is of normal caliber (axial series, images 118 through 123) Vasculature: Unremarkable. Lymph nodes: No pathologically enlarged or morphologically suspicious lymph nodes within the retroperitoneum or at the root of the mesentery. Pelvic structures: The bladder is distended, and otherwise unremarkable. The prostate gland is minimally enlarged and contains multiple bulky calcifications. Body wall and musculoskeletal: A small bowel containing, nonobstructing right inguinal hernia. Degenerative disease is identified within the lumbar spine, with osteophyte formation, disc space cristin rowing, endplate changes and vacuum phenomena. No acute compression fracture is present. IMPRESSION: No acute intra-abdominal findings. Innumerable nonacute findings, as detailed above Reviewed, dictated and finalized at location A. ARTS PACKER
--- NOTE | ~2024-06-23 | CT_ITS ---
CTA brain carotid Ordering provider: Carol Ann Cline MD History: . ams, visual hallucinations . Comparison: None. Technique: CT angiogram head and neck was performed following timed intravenous injection of contrast . Thin slice axial images and reformatted coronal images were obtained. Three dimensional reformatted images of the brain were also obtained using a [employer] workstation. DLP: 1117 mGy-cm FINDINGS: HEAD: --ANTERIOR AND MIDDLE CEREBRAL ARTERIES AND BRANCHES: Normal caliber and contour. --INTERNAL CAROTID ARTERIES: Mild atheromatous disease but no significant stenosis. No occlusion. --BASILAR ARTERY AND BRANCHES: Normal caliber and contour. No atheromatous disease. --POSTERIOR CEREBRAL ARTERIES: Normal caliber and contour --POSTERIOR COMMUNICATING ARTERIES: Not well visualized likely related to congenital absence or small size. --ANEURYSM: None visualized. --BRAIN: Please refer to report of CT head performed the same day. --BONES AND SUPERFICIAL SOFT TISSUES: Please refer to report of CT head performed the same day. --PARANASAL SINUSES AND MASTOIDS: Please refer to report of CT head done the same day. NECK: --RIGHT CERVICAL CAROTID SYSTEM: Mild atheromatous disease of the carotid bulb and proximal internal carotid artery without significant stenosis. Percent stenosis per NASCET criteria is 0% No carotid d issection. --LEFT CERVICAL CAROTID SYSTEM: Mild atheromatous disease of the carotid bulb and proximal internal c arotid artery without significant stenosis. Percent stenosis per NASCET criteria is 0% No carotid di ssection. --VERTEBRAL ARTERIES: Normal caliber and contour. --VISUALIZED AORTIC ARCH AND BRANCHING VESSELS: Mild atheromatous disease but no significant stenosis . --SOFT TISSUES: Unremarkable --CERVICAL SPINE: Age appropriate degenerative changes. IMPRESSION: 1. Normal CTA head and neck. Percent stenosis per NASCET criteria is 0% Reviewed, dictated and finalized at location A. GER RENTAL
--- NOTE | ~2024-06-23 | MR_ITS ---
EXAMINATION: MR brain/brain stem wo con DATE: 06/24/2024 15:09 INDICATION: Confusion. TECHNIQUE: Magnetic resonance imaging (MRI) of the brain and brainstem was performed without intraven ous contrast. COMPARISON: Head CT 06/23/2024 FINDINGS: There is an acute infarct in the right parietal lobe deep white matter. There is chronic en cephalomalacia in right temporal lobe. There are scattered areas of nonspecific increased T2-weighted signal intensity in the cerebral white matter and jaron. There is no abnormal mass lesion. There is a cute subarachnoid hemorrhage in a sulcus in right frontal lobe. There are old blood products in sulci in the right frontal and parietal lobes. The ventricles are normal in size. There are likely changes of ocular lens replacement surgeries. The paranasal sinuses are clear. The mastoid air cells are nor mal. IMPRESSION: 1. 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 2. Acute subarachnoid hemorrhage in a sulcus in right frontal lobe. I called this result to Adrienne altman. 3. 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 4. Extensive nonspecific cerebral white matter disease and pontine disease, which likely represents c hronic small vessel ischemic disease. Reviewed, dictated and finalized at location A. OMIC PATHOLOGIST IMPRESSION: 1. 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 2. Acute subarachnoid hemorrhage in a sulcus in right frontal lobe. I called th is result to Adrienne Brody. 3. 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 4. Extensive nonspecific cerebral white matter disease and pontine disease, whi ch likely represents chronic small vessel ischemic disease.
--- NOTE | ~2024-06-23 | XR_ITS ---
EXAMINATION: XR chest 2V DATE: 06/23/2024 16:10 INDICATION: Chest pain. TECHNIQUE: Frontal and lateral views of the chest were obtained. COMPARISON: Chest 2 views 05/10/2024, 09/02/2022 FINDINGS: The lung volumes are normal. There are chronic peripheral reticular opacities in the midlun g zones bilaterally. Calcified pulmonary nodules are consistent with old granulomatous disease. No pl eural effusion or pneumothorax. The heart size is normal. IMPRESSION: 1. Stable mild chronic lung disease. Reviewed, dictated and finalized at location A. MANAGER
--- NOTE | ~2024-06-23 | CT_ITS ---
EXAMINATION: CT brain wo con DATE: 06/23/2024 16:14 INDICATION: Altered mental status. TECHNIQUE: Computed tomography (CT) of the head was performed without intravenous contrast. The mA wa s adjusted according to patient size. Iterative reconstruction technique was employed. The dose-lengt h product was 605.33 mGy-cm. COMPARISON: None FINDINGS: There is chronic encephalomalacia in right temporal lobe. There are scattered areas of low attenuation in the cerebral white matter. There is no intracranial hemorrhage, acute infarction, or a bnormal intracranial mass lesion. The ventricles are normal in size. There are likely changes of ocul ar lens replacement surgeries. There is mild mucosal thickening in the paranasal sinuses. The mastoid air cells are normal. IMPRESSION: 1. 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 2. Extensive nonspecific cerebral white matter disease, which likely represents chronic small vessel ischemic disease. Reviewed, dictated and finalized at location A. NING MANAGER
[2024-06-23 15:41] VITALS: BP 180/91; PULSE 70; RESP 18; TEMP 36; O2SAT 98
--- NOTE | 2024-06-23 15:41 | ECG_ITS ---
Test Date: 2024-06-23 15:53:07 Measurements Intervals [place] Rate: 68 P: 47 UT: 189 QRS: -73 QRSD: 142 T: 36 QT: 454 QTc: 483 Interpretive Statements SINUS RHYTHM WITH SINUS ARRHYTHMIA RIGHT BUNDLE BRANCH BLOCK LEFT ANTERIOR FASCICULAR BLOCK BASELINE ARTIFACT- I, II, III, AVR, AVL, AVF, V3-V5 ABNORMAL ECG Compared to ECG 05/10/2024 13:28:43 HEART RATE HAS INCREASED Electronically Signed On 06-23-2024 17:04:44 DIRECTOR OF CASEWORK by Austin Colon D.O.
--- NOTE | 2024-06-23 15:56 | ED.CHESTPAIN ---
HPI - Chest Pain General Chief Complaint: Chest Pain <Le Segovia PA-C - Last Filed: 06/25/24 18:57> Stated Complaint: UTI w/ delirium, chest pain <Le Segovia PA-C - Last Filed: 06/25/24 18:57> Time Seen by Provider: 06/23/24 15:56 <Le Segovia PA-C - Last Filed: 06/25/24 18:57> Focused HPI: This is a 88 year old male that presents to the ER for altered mental status. Ongoing over the last week. Family member reports he was diagnosed with a UTI. He was put on antibiotics without improvement in his mentation. He has also endorsed some chest pain intermittently. GENERAL: Elderly, well-nourished, and in no acute distress. HEAD: Normocephalic, atraumatic. CHEST: Clear to auscultation. ?No respiratory distress. HEART: Regular rate and rhythm.? NEURO: ?Alert and oriented x1-2. Patient screened in triage and initial orders placed.? ?Additional care and disposition to be based upon?diagnostic testing and treatment. <Le Segovia PA-C - Last Filed: 06/25/24 18:57> Source: patient and family (Granddaughter) <Carol Ann Cline MD - Last Filed: 06/24/24 18:25> History of Present Illness HPI narrative: Agree with the above with the following additions/corrections: Patient reports that he had chest pain yesterday which is resolved. He also reports the abdominal pain yesterday and last night. He denies any. Not on diuretics. He states he has not been having good bowel movements. They note that a urine sample was collected in a hat and assessed and when he was diagnosed with UTI, Macrobid prescribed. Granddaughter notes that he has been confused for the last week or so, even preceding starting the antibiotic. In fact, his confusion is what prompted them to get his urine assessed as they thought it might be due simply to urinary tract infection. He has been having visual hallucination, talking things he sees in front of him cavazos and this started . Patient is able to home about previously being in the [employer] and going to [place] and the ship that they were on. He denies being short of breath now although states that he has been. He endorses nausea but no vomiting. When asked if he has been experiencing episodes of being sweaty, he states probably. No fevers or chills. In regards to the chest pain he states this has happened before any previously saw psychiatric arnp but no underlying cardiac or respiratory issues and no cardiac stents. No diagnosis of dementia per family. They note that normally he is alert oriented x4. He occasionally has issues with memory but this is very different for him. He had bladder cancer 5 years ago. Cardiac Risk Factors: No hypertension. He does have hyperlipidemia. No visual diagnosis diabetes mellitus the grandmother suspects that he might given blood sugars have been elevated on various labs. He is obese. Currently a smoker but he does chew. No prior myocardial infarction or CVA but he has had history of TIAs. No family history myocardial infarction before the age of 65. <Carol Ann Cline MD - Last Filed: 06/24/24 18:25> Related Data Home Medications: Home Medications ?Medication ?Instructions ?Recorded ?Confirmed ?Last Taken ?Type acetaminophen 650 mg PO .q4hr PRN pain/fever 06/24/24 06/24/24 Unknown History aspirin 81 mg PO DAILY@1700 06/24/24 06/24/24 06/22/24 History naproxen 220 mg PO .q12hr PRN pain 06/24/24 06/24/24 Unknown History rosuvastatin 5 mg PO DAILY@1700 06/24/24 06/24/24 06/22/24 History <Le Segovia PA-C - Last Filed: 06/25/24 18:57> Allergies/Adverse Reactions: Allergies Allergy/AdvReac Type Severity Reaction Status Date / Time No Known Allergies Allergy Verified 06/24/24 03:01 <Le Segovia PA-C - Last Filed: 06/25/24 18:57> Review of Systems Review of Systems: All systems reviewed & are unremarkable except as noted in HPI and below <Le Segovia PA-C - Last Filed: 06/25/24 18:57> PMFSH Past Medical History Medical History: Medical History HLD (hyperlipidemia) TIA (transient ischemic attack) Hypertension Colon cancer Bladder cancer 2019 <Le Segovia PA-C - Last Filed: 06/25/24 18:57> Surgical History Surgical History: Surgical History History of knee replacement <Le Segovia PA-C - Last Filed: 06/25/24 18:57> Social History Social History: Social History Smoking status: Never smoker Smokeless tobacco user: chewing tobacco Alcohol intake: former Substance use: never Do You Feel Safe in your Home?: Yes Lack of Transportation: No Lack of Food: Never True Current Housing: I Have Housing Concerned About Future Housing: No Difficulty Paying Gas/Electric Bills: No Difficulty Paying for Meds: No Currently Unemployed: No Education: Don't Know Difficulty w/ Childcare or Family Care: No Living arrangements: assisted living Occupation/Education: retired Additional occupation/education comments: Former [employer] Spiritual care concerns: Yes <Le Segovia PA-C - Last Filed: 06/25/24 18:57> Exam Narrative: GENERAL: Well-appearing, well-nourished, and in no acute distress. HEAD: Normocephalic, atraumatic. EYES: Non injected, non icteric ENT: Nares clear, no rhinorrhea or epistaxis. NECK: Supple. CHEST: Speaking in full sentences. No respiratory distress. HEART: Regular rate and rhythm. . ABDOMEN: Obese but Soft, nondistended. EXTREMITIES: Normal range of motion. Moving all extremities x4. SKIN: Warm, dry, no rash. NEURO: No focal deficits. Alert and oriented x3. Speaks clearly without dysarthria. PSYCH: Normal mood and affect. Occasionally has his hands in front of him as if grabbing something in mid air. <Le Segovia PA-C - Last Filed: 06/25/24 18:57> GENERAL: Well-appearing, well-nourished, and in no acute distress. HEAD: Normocephalic, atraumatic. EYES: Non injected, non icteric ENT: Nares clear, no rhinorrhea or epistaxis. NECK: Supple. CHEST: Speaking in full sentences. No respiratory distress. HEART: Regular rate and rhythm. . ABDOMEN: Obese but Soft, nondistended. EXTREMITIES: Normal range of motion. Moving all extremities x4. SKIN: Warm, dry, no rash. NEURO: No focal deficits. Alert and oriented x3. Speaks clearly without dysarthria. PSYCH: Normal mood and affect. Occasionally as his hands in front of him as if grabbing something in mid air. <Carol Ann Cline MD - Last Filed: 06/24/24 18:25> Course Vital Signs Vital signs: Vital Signs Temperature 96.8 F L 06/23/24 15:41 Pulse Rate 70 06/23/24 15:41 Respiratory Rate 18 06/23/24 15:41 Blood Pressure 180/91 H 06/23/24 15:41 Pulse Oximetry 98 06/23/24 15:41 Oxygen Delivery Room Air 06/23/24 15:41 Temperature 97.6 F 06/24/24 14:00 Pulse Rate 88 06/24/24 14:00 Respiratory Rate 14 06/24/24 14:00 Blood Pressure 141/77 H 06/24/24 17:54 Pulse Oximetry 93 06/24/24 14:00 Oxygen Delivery Room Air 06/24/24 08:00 <Le Segovia PA-C - Last Filed: 06/25/24 18:57> Vital Signs Temperature 96.8 F L 06/23/24 15:41 Pulse Rate 70 06/23/24 15:41 Respiratory Rate 18 06/23/24 15:41 Blood Pressure 180/91 H 06/23/24 15:41 Pulse Oximetry 98 06/23/24 15:41 Oxygen Delivery Room Air 06/23/24 15:41 Temperature 97.6 F 06/24/24 14:00 Pulse Rate 88 06/24/24 14:00 Respiratory Rate 14 06/24/24 14:00 Blood Pressure 141/77 H 06/24/24 17:54 Pulse Oximetry 93 06/24/24 14:00 Oxygen Delivery Room Air 06/24/24 08:00 <Carol Ann Cline MD - Last Filed: 06/24/24 18:25> MDM - Chest Pain MDM Narrative Medical decision making narrative: Patient presents with concern for altered mental status by the family. He has been altered for approximately 1 week but it appears to be worsening. They initially thought it might be due to urinary tract infection and he did have a urinalysis performed which was concerning for urinary tract infection and he was placed on Macrobid but he has not been getting better and in fact he has been worsening. He is now starting to have visual hallucinations and this is new. He also reported chest pain yesterday which has now resolved. In the emergency department he is afebrile with vital signs notable for hypertension. Normocytic anemia, stable from previous. HEART SCORE History 2 highly suspicious 1 moderately suspicious 0 slightly suspicious History score [address] depression/elevation not due to LBBB, LVH, or digoxin [address] depression but LBBB, LVH, nonspecific repolarization changes 0 normal ECG score 0 Age 2 >/= 65 1 45-64 0 <45 Age score 2 Risk factors (HTN, hypercholesterolemia, DM, obesity with BMI >30, current smoker or cessation </=3mo), positive fam hx with parent or sibling with CVD before age 65, atherosclerotic disease (prior [place], PCI/CABG, CVA/TIA, or peripheral arterial disease) 2 >/= 3 risk factors or history of atherosclerotic dz 1 - 1-2 risk factors 0 no known risk factors Risk factor score 2 (HLD, obese, hx tia) Initial Troponin 2 >3 times normal limit 1 1-3 times normal limit 0 less than or equal to normal limit Troponin score 0 Total HEART Score 4. Repeat trop negative. Hyperglycemia without anion gap acidosis. Hyponatremia partially corrects to 135-136 in the setting of hyperglycemia. Patient has mild glucosuria and proteinuria on urinalysis but otherwise it does not appear infected. Mildly elevated CPK but not enough to a degree to suggest rhabdo. HA1c does indicate he has diabetes. Family thought this might be the case but not currently on meds for this. The rest of his workup is unremarkable. At this point is cause of encephalopathy is unclear it appears to be getting worse. He is observed taking his gown off and moving around in his hands and if Spoke with on-call hospitalist Dr. Cantu. We reviewed his workup which has been thorough up to this point. He will add on a B12 level. He does ask if neurology is on-call tomorrow i.e. today and it does appear that Dr. Shaw is on-call for the date of 06/24/2024. Consult placed but did not notify neurologist overnight. Hospitalist to order B12 lab. Med surg bed. <Carol Ann Cline MD - Last Filed: 06/24/24 18:25> Differential Diagnosis Differential diagnosis: Likely unstable angina pectoris, atypical chest pain, st elevation myocardial infarction, chest pain, biliary colic and other (medication side effect (though appears rare in Macrobid); prednisone listed in med list at one time but hasn't taken recently; BP not elevated to suggest PRES or hypertensive encephalopathy; thyroid; electrolyte abnormalites, metabolic, drug, TIA/CVA) <Carol Ann Cline MD - Last Filed: 06/24/24 18:25> Lab Data Attestation: I reviewed the patient's lab results. <Carol Ann Cline MD - Last Filed: 06/24/24 18:25> Result diagrams: 06/24/24 07:26 06/24/24 07:26 <Le Segovia PA-C - Last Filed: 06/25/24 18:57> Labs: Lab Results 06/23/24 06/23/24 06/23/24 Range/Units 16:01 20:44 21:38 WBC 9.4 (4.5-10.0) K/mm3 RBC 4.30 L (4.6-6.20) M/mm3 Hgb 12.9 L (14.0-18.0) g/dL Hct 39.4 L (42.0-52.0) % MCV 91.6 (80-100) fl MCH 30.0 (26-34) pg MCHC 32.7 (32-36) g/dl RDW 14.5 (11.5-14.5) % Plt Count 284 (150-375) k/mm3 MPV 9.2 (7.4-10.4) fl Immature Gran % (Auto) 0.4 (0-0.5) % Neut % (Auto) 58.6 (45.5-73.1) % Lymph % (Auto) 23.6 (18.3-44.2) % [place] % (Auto) 13.1 H (2.6-8.5) % Eos % (Auto) 3.7 (0-4.4) % Baso % (Auto) 0.6 (0.2-1.2) % Lymph # (Auto) 2.21 (0.9-3.2) K/mm3 [place] # (Auto) 1.2 H (0.1-0.6) K/mm3 Eos # (Auto) 0.4 H (0-0.3) K/mm3 Baso # (Auto) 0.1 (0.0-0.1) K/mm3 Abs Immat Gran (auto) 0.04 H (0.00-0.031) K/mm3 Absolute Neuts (auto) 5.5 (1.3-6.7) K/mm3 Absolute Nucleated RBC 0.000 (0.0-0.012) K/mm3 Nucleated RBC % 0.0 (0.0-0.2) % PT 13.6 (11.1-14.7) Seconds INR 1.0 APTT 30.5 (22.3-36.8) Seconds Sodium 134 L (137-145) mmol/L Potassium 4.1 (3.4-5.0) mmol/L Chloride 97 L (98-107) mmol/L Carbon Dioxide 28 (22-30) mmol/L Anion Gap 9 (4-12) mmol/L BUN 9 (9-20) mg/dL Creatinine 0.63 L (0.7-1.3) mg/dL Estim Creat Clear Calc 84 ml/min Estimated GFR > 60 (59 - ) Glucose 168 H (65-110) mg/dL POC Capillary Glucose (65-105) mg/dl Hemoglobin A1c 7.6 H (<5.7) % Calcium 8.9 (8.4-10.2) mg/dL Magnesium (1.6-2.3) mg/dL Total Bilirubin 0.5 (0.2-1.3) mg/dL AST 25 (17-59) U/L ALT 19 (6-50) U/L Alkaline Phosphatase 98 (38-126) U/L Ammonia (9-30) umol/L Total Creatine Kinase (55-170) U/L Troponin I < 0.012 < 0.012 (0.000-0.034) ng/mL NT-Pro-B Natriuret Pep (19.9-100) pg/mL Total Protein 7.0 (6.3-8.2) g/dL Albumin 4.1 (3.5-5.1) g/dL Lipase 123 (23-300) U/L Vitamin B12 (239-931) pg/mL TSH (0.465-4.680) uIU/mL Urine Color Yellow (Yellow) Urine Appearance Clear (Clear) Urine pH 6.5 (5.0-9.0) Ur Specific [place] 1.012 (1.001-1.035) Urine Protein 1+ H (Negative) mg/dL Urine Glucose (UA) 2+ H (Negative) mg/dL Urine Ketones Negative (Negative) mg/dL Ur Blood (Man) Negative (Negative) Urine Nitrate Negative (Negative) Urine Bilirubin Negative (Negative) Urine Urobilinogen 1.0 (<2.0) mg/dL Leukocyte Esterase Rfl Negative (Negative) CHUY/UL Urine RBC 0-2 (0-2) /hpf Urine WBC 0-5 (0-3) /hpf Ur Squamous Epith Cells None seen (Few) /hpf Urine Bacteria None seen /hpf Urine Casts 0-2 Salicylates (2-20) mg/dL Urine Opiates Screen Negative (Negative) Urine Methadone Screen Negative (Negative) Acetaminophen (10-30) ug/mL Ur Barbiturates Screen Negative (Negative) Ur Phencyclidine Scrn Negative (Negative) Ur Amphetamine Screen Negative (Negative) U Benzodiazepines Scrn Negative (Negative) Urine Cocaine Screen Negative (Negative) U Cannabinoids Screen Negative (Negative) Ethyl Alcohol (<10) mg/dL Influenza A (RT-PCR) (Negative) Influenza B (RT-PCR) (Negative) RSV (RT-PCR) (Negative) SARS-CoV-2 RNA (RT-PCR) (Negative) 06/23/24 06/23/24 06/24/24 Range/Units 21:48 22:05 07:26 WBC 10.5 H (4.5-10.0) K/mm3 RBC 4.22 L (4.6-6.20) M/mm3 Hgb 12.5 L (14.0-18.0) g/dL Hct 38.2 L (42.0-52.0) % MCV 90.5 (80-100) fl MCH 29.6 (26-34) pg MCHC 32.7 (32-36) g/dl RDW 14.5 (11.5-14.5) % Plt Count 261 (150-375) k/mm3 MPV 9.6 (7.4-10.4) fl Immature Gran % (Auto) 0.4 (0-0.5) % Neut % (Auto) 66.4 (45.5-73.1) % Lymph % (Auto) 16.4 L (18.3-44.2) % [place] % (Auto) 12.8 H (2.6-8.5) % Eos % (Auto) 3.2 (0-4.4) % Baso % (Auto) 0.8 (0.2-1.2) % Lymph # (Auto) 1.72 (0.9-3.2) K/mm3 [place] # (Auto) 1.3 H (0.1-0.6) K/mm3 Eos # (Auto) 0.3 (0-0.3) K/mm3 Baso # (Auto) 0.1 (0.0-0.1) K/mm3 Abs Immat Gran (auto) 0.04 H (0.00-0.031) K/mm3 Absolute Neuts (auto) 7.0 H (1.3-6.7) K/mm3 Absolute Nucleated RBC 0.000 (0.0-0.012) K/mm3 Nucleated RBC % 0.0 (0.0-0.2) % PT (11.1-14.7) Seconds INR APTT (22.3-36.8) Seconds Sodium 137 (137-145) mmol/L Potassium 4.2 (3.4-5.0) mmol/L Chloride 100 (98-107) mmol/L Carbon Dioxide 29 (22-30) mmol/L Anion Gap 8 (4-12) mmol/L BUN 7 L (9-20) mg/dL Creatinine 0.61 L (0.7-1.3) mg/dL Estim Creat Clear Calc 80 ml/min Estimated GFR > 60 (59 - ) Glucose 132 H (65-110) mg/dL POC Capillary Glucose (65-105) mg/dl Hemoglobin A1c (<5.7) % Calcium 8.9 (8.4-10.2) mg/dL Magnesium 2.0 (1.6-2.3) mg/dL Total Bilirubin (0.2-1.3) mg/dL AST (17-59) U/L ALT (6-50) U/L Alkaline Phosphatase (38-126) U/L Ammonia < 9 L (9-30) umol/L Total Creatine Kinase 259 H (55-170) U/L Troponin I (0.000-0.034) ng/mL NT-Pro-B Natriuret Pep 220 H (19.9-100) pg/mL Total Protein (6.3-8.2) g/dL Albumin (3.5-5.1) g/dL Lipase (23-300) U/L Vitamin B12 347.0 (239-931) pg/mL TSH 4.110 (0.465-4.680) uIU/mL Urine Color (Yellow) Urine Appearance (Clear) Urine pH (5.0-9.0) Ur Specific [place] (1.001-1.035) Urine Protein (Negative) mg/dL Urine Glucose (UA) (Negative) mg/dL Urine Ketones (Negative) mg/dL Ur Blood (Man) (Negative) Urine Nitrate (Negative) Urine Bilirubin (Negative) Urine Urobilinogen (<2.0) mg/dL Leukocyte Esterase Rfl (Negative) CHUY/UL Urine RBC (0-2) /hpf Urine WBC (0-3) /hpf Ur Squamous Epith Cells (Few) /hpf Urine Bacteria /hpf Urine Casts Salicylates < 1.0 L (2-20) mg/dL Urine Opiates Screen (Negative) Urine Methadone Screen (Negative) Acetaminophen < 10 L (10-30) ug/mL Ur Barbiturates Screen (Negative) Ur Phencyclidine Scrn (Negative) Ur Amphetamine Screen (Negative) U Benzodiazepines Scrn (Negative) Urine Cocaine Screen (Negative) U Cannabinoids Screen (Negative) Ethyl Alcohol < 10 (<10) mg/dL Influenza A (RT-PCR) Negative (Negative) Influenza B (RT-PCR) Negative (Negative) RSV (RT-PCR) Negative (Negative) SARS-CoV-2 RNA (RT-PCR) Negative (Negative) 06/24/24 Range/Units 08:15 WBC (4.5-10.0) K/mm3 RBC (4.6-6.20) M/mm3 Hgb (14.0-18.0) g/dL Hct (42.0-52.0) % MCV (80-100) fl MCH (26-34) pg MCHC (32-36) g/dl RDW (11.5-14.5) % Plt Count (150-375) k/mm3 MPV (7.4-10.4) fl Immature Gran % (Auto) (0-0.5) % Neut % (Auto) (45.5-73.1) % Lymph % (Auto) (18.3-44.2) % [place] % (Auto) (2.6-8.5) % Eos % (Auto) (0-4.4) % Baso % (Auto) (0.2-1.2) % Lymph # (Auto) (0.9-3.2) K/mm3 [place] # (Auto) (0.1-0.6) K/mm3 Eos # (Auto) (0-0.3) K/mm3 Baso # (Auto) (0.0-0.1) K/mm3 Abs Immat Gran (auto) (0.00-0.031) K/mm3 Absolute Neuts (auto) (1.3-6.7) K/mm3 Absolute Nucleated RBC (0.0-0.012) K/mm3 Nucleated RBC % (0.0-0.2) % PT (11.1-14.7) Seconds INR APTT (22.3-36.8) Seconds Sodium (137-145) mmol/L Potassium (3.4-5.0) mmol/L Chloride (98-107) mmol/L Carbon Dioxide (22-30) mmol/L Anion Gap (4-12) mmol/L BUN (9-20) mg/dL Creatinine (0.7-1.3) mg/dL Estim Creat Clear Calc ml/min Estimated GFR (59 - ) Glucose (65-110) mg/dL POC Capillary Glucose 125 H (65-105) mg/dl Hemoglobin A1c (<5.7) % Calcium (8.4-10.2) mg/dL Magnesium (1.6-2.3) mg/dL Total Bilirubin (0.2-1.3) mg/dL AST (17-59) U/L ALT (6-50) U/L Alkaline Phosphatase (38-126) U/L Ammonia (9-30) umol/L Total Creatine Kinase (55-170) U/L Troponin I (0.000-0.034) ng/mL NT-Pro-B Natriuret Pep (19.9-100) pg/mL Total Protein (6.3-8.2) g/dL Albumin (3.5-5.1) g/dL Lipase (23-300) U/L Vitamin B12 (239-931) pg/mL TSH (0.465-4.680) uIU/mL Urine Color (Yellow) Urine Appearance (Clear) Urine pH (5.0-9.0) Ur Specific [place] (1.001-1.035) Urine Protein (Negative) mg/dL Urine Glucose (UA) (Negative) mg/dL Urine Ketones (Negative) mg/dL Ur Blood (Man) (Negative) Urine Nitrate (Negative) Urine Bilirubin (Negative) Urine Urobilinogen (<2.0) mg/dL Leukocyte Esterase Rfl (Negative) CHUY/UL Urine RBC (0-2) /hpf Urine WBC (0-3) /hpf Ur Squamous Epith Cells (Few) /hpf Urine Bacteria /hpf Urine Casts Salicylates (2-20) mg/dL Urine Opiates Screen (Negative) Urine Methadone Screen (Negative) Acetaminophen (10-30) ug/mL Ur Barbiturates Screen (Negative) Ur Phencyclidine Scrn (Negative) Ur Amphetamine Screen (Negative) U Benzodiazepines Scrn (Negative) Urine Cocaine Screen (Negative) U Cannabinoids Screen (Negative) Ethyl Alcohol (<10) mg/dL Influenza A (RT-PCR) (Negative) Influenza B (RT-PCR) (Negative) RSV (RT-PCR) (Negative) SARS-CoV-2 RNA (RT-PCR) (Negative) <Le Segovia PA-C - Last Filed: 06/25/24 18:57> Lab Results 06/23/24 06/23/24 06/23/24 Range/Units 16:01 20:44 21:38 WBC 9.4 (4.5-10.0) K/mm3 RBC 4.30 L (4.6-6.20) M/mm3 Hgb 12.9 L (14.0-18.0) g/dL Hct 39.4 L (42.0-52.0) % MCV 91.6 (80-100) fl MCH 30.0 (26-34) pg MCHC 32.7 (32-36) g/dl RDW 14.5 (11.5-14.5) % Plt Count 284 (150-375) k/mm3 MPV 9.2 (7.4-10.4) fl Immature Gran % (Auto) 0.4 (0-0.5) % Neut % (Auto) 58.6 (45.5-73.1) % Lymph % (Auto) 23.6 (18.3-44.2) % [place] % (Auto) 13.1 H (2.6-8.5) % Eos % (Auto) 3.7 (0-4.4) % Baso % (Auto) 0.6 (0.2-1.2) % Lymph # (Auto) 2.21 (0.9-3.2) K/mm3 [place] # (Auto) 1.2 H (0.1-0.6) K/mm3 Eos # (Auto) 0.4 H (0-0.3) K/mm3 Baso # (Auto) 0.1 (0.0-0.1) K/mm3 Abs Immat Gran (auto) 0.04 H (0.00-0.031) K/mm3 Absolute Neuts (auto) 5.5 (1.3-6.7) K/mm3 Absolute Nucleated RBC 0.000 (0.0-0.012) K/mm3 Nucleated RBC % 0.0 (0.0-0.2) % PT 13.6 (11.1-14.7) Seconds INR 1.0 APTT 30.5 (22.3-36.8) Seconds Sodium 134 L (137-145) mmol/L Potassium 4.1 (3.4-5.0) mmol/L Chloride 97 L (98-107) mmol/L Carbon Dioxide 28 (22-30) mmol/L Anion Gap 9 (4-12) mmol/L BUN 9 (9-20) mg/dL Creatinine 0.63 L (0.7-1.3) mg/dL Estim Creat Clear Calc 84 ml/min Estimated GFR > 60 (59 - ) Glucose 168 H (65-110) mg/dL POC Capillary Glucose (65-105) mg/dl Hemoglobin A1c 7.6 H (<5.7) % Calcium 8.9 (8.4-10.2) mg/dL Magnesium (1.6-2.3) mg/dL Total Bilirubin 0.5 (0.2-1.3) mg/dL AST 25 (17-59) U/L ALT 19 (6-50) U/L Alkaline Phosphatase 98 (38-126) U/L Ammonia (9-30) umol/L Total Creatine Kinase (55-170) U/L Troponin I < 0.012 < 0.012 (0.000-0.034) ng/mL NT-Pro-B Natriuret Pep (19.9-100) pg/mL Total Protein 7.0 (6.3-8.2) g/dL Albumin 4.1 (3.5-5.1) g/dL Lipase 123 (23-300) U/L Vitamin B12 (239-931) pg/mL TSH (0.465-4.680) uIU/mL Urine Color Yellow (Yellow) Urine Appearance Clear (Clear) Urine pH 6.5 (5.0-9.0) Ur Specific [place] 1.012 (1.001-1.035) Urine Protein 1+ H (Negative) mg/dL Urine Glucose (UA) 2+ H (Negative) mg/dL Urine Ketones Negative (Negative) mg/dL Ur Blood (Man) Negative (Negative) Urine Nitrate Negative (Negative) Urine Bilirubin Negative (Negative) Urine Urobilinogen 1.0 (<2.0) mg/dL Leukocyte Esterase Rfl Negative (Negative) CHUY/UL Urine RBC 0-2 (0-2) /hpf Urine WBC 0-5 (0-3) /hpf Ur Squamous Epith Cells None seen (Few) /hpf Urine Bacteria None seen /hpf Urine Casts 0-2 Salicylates (2-20) mg/dL Urine Opiates Screen Negative (Negative) Urine Methadone Screen Negative (Negative) Acetaminophen (10-30) ug/mL Ur Barbiturates Screen Negative (Negative) Ur Phencyclidine Scrn Negative (Negative) Ur Amphetamine Screen Negative (Negative) U Benzodiazepines Scrn Negative (Negative) Urine Cocaine Screen Negative (Negative) U Cannabinoids Screen Negative (Negative) Ethyl Alcohol (<10) mg/dL Influenza A (RT-PCR) (Negative) Influenza B (RT-PCR) (Negative) RSV (RT-PCR) (Negative) SARS-CoV-2 RNA (RT-PCR) (Negative) 06/23/24 06/23/24 06/24/24 Range/Units 21:48 22:05 07:26 WBC 10.5 H (4.5-10.0) K/mm3 RBC 4.22 L (4.6-6.20) M/mm3 Hgb 12.5 L (14.0-18.0) g/dL Hct 38.2 L (42.0-52.0) % MCV 90.5 (80-100) fl MCH 29.6 (26-34) pg MCHC 32.7 (32-36) g/dl RDW 14.5 (11.5-14.5) % Plt Count 261 (150-375) k/mm3 MPV 9.6 (7.4-10.4) fl Immature Gran % (Auto) 0.4 (0-0.5) % Neut % (Auto) 66.4 (45.5-73.1) % Lymph % (Auto) 16.4 L (18.3-44.2) % [place] % (Auto) 12.8 H (2.6-8.5) % Eos % (Auto) 3.2 (0-4.4) % Baso % (Auto) 0.8 (0.2-1.2) % Lymph # (Auto) 1.72 (0.9-3.2) K/mm3 [place] # (Auto) 1.3 H (0.1-0.6) K/mm3 Eos # (Auto) 0.3 (0-0.3) K/mm3 Baso # (Auto) 0.1 (0.0-0.1) K/mm3 Abs Immat Gran (auto) 0.04 H (0.00-0.031) K/mm3 Absolute Neuts (auto) 7.0 H (1.3-6.7) K/mm3 Absolute Nucleated RBC 0.000 (0.0-0.012) K/mm3 Nucleated RBC % 0.0 (0.0-0.2) % PT (11.1-14.7) Seconds INR APTT (22.3-36.8) Seconds Sodium 137 (137-145) mmol/L Potassium 4.2 (3.4-5.0) mmol/L Chloride 100 (98-107) mmol/L Carbon Dioxide 29 (22-30) mmol/L Anion Gap 8 (4-12) mmol/L BUN 7 L (9-20) mg/dL Creatinine 0.61 L (0.7-1.3) mg/dL Estim Creat Clear Calc 80 ml/min Estimated GFR > 60 (59 - ) Glucose 132 H (65-110) mg/dL POC Capillary Glucose (65-105) mg/dl Hemoglobin A1c (<5.7) % Calcium 8.9 (8.4-10.2) mg/dL Magnesium 2.0 (1.6-2.3) mg/dL Total Bilirubin (0.2-1.3) mg/dL AST (17-59) U/L ALT (6-50) U/L Alkaline Phosphatase (38-126) U/L Ammonia < 9 L (9-30) umol/L Total Creatine Kinase 259 H (55-170) U/L Troponin I (0.000-0.034) ng/mL NT-Pro-B Natriuret Pep 220 H (19.9-100) pg/mL Total Protein (6.3-8.2) g/dL Albumin (3.5-5.1) g/dL Lipase (23-300) U/L Vitamin B12 347.0 (239-931) pg/mL TSH 4.110 (0.465-4.680) uIU/mL Urine Color (Yellow) Urine Appearance (Clear) Urine pH (5.0-9.0) Ur Specific [place] (1.001-1.035) Urine Protein (Negative) mg/dL Urine Glucose (UA) (Negative) mg/dL Urine Ketones (Negative) mg/dL Ur Blood (Man) (Negative) Urine Nitrate (Negative) Urine Bilirubin (Negative) Urine Urobilinogen (<2.0) mg/dL Leukocyte Esterase Rfl (Negative) CHUY/UL Urine RBC (0-2) /hpf Urine WBC (0-3) /hpf Ur Squamous Epith Cells (Few) /hpf Urine Bacteria /hpf Urine Casts Salicylates < 1.0 L (2-20) mg/dL Urine Opiates Screen (Negative) Urine Methadone Screen (Negative) Acetaminophen < 10 L (10-30) ug/mL Ur Barbiturates Screen (Negative) Ur Phencyclidine Scrn (Negative) Ur Amphetamine Screen (Negative) U Benzodiazepines Scrn (Negative) Urine Cocaine Screen (Negative) U Cannabinoids Screen (Negative) Ethyl Alcohol < 10 (<10) mg/dL Influenza A (RT-PCR) Negative (Negative) Influenza B (RT-PCR) Negative (Negative) RSV (RT-PCR) Negative (Negative) SARS-CoV-2 RNA (RT-PCR) Negative (Negative) 06/24/24 Range/Units 08:15 WBC (4.5-10.0) K/mm3 RBC (4.6-6.20) M/mm3 Hgb (14.0-18.0) g/dL Hct (42.0-52.0) % MCV (80-100) fl MCH (26-34) pg MCHC (32-36) g/dl RDW (11.5-14.5) % Plt Count (150-375) k/mm3 MPV (7.4-10.4) fl Immature Gran % (Auto) (0-0.5) % Neut % (Auto) (45.5-73.1) % Lymph % (Auto) (18.3-44.2) % [place] % (Auto) (2.6-8.5) % Eos % (Auto) (0-4.4) % Baso % (Auto) (0.2-1.2) % Lymph # (Auto) (0.9-3.2) K/mm3 [place] # (Auto) (0.1-0.6) K/mm3 Eos # (Auto) (0-0.3) K/mm3 Baso # (Auto) (0.0-0.1) K/mm3 Abs Immat Gran (auto) (0.00-0.031) K/mm3 Absolute Neuts (auto) (1.3-6.7) K/mm3 Absolute Nucleated RBC (0.0-0.012) K/mm3 Nucleated RBC % (0.0-0.2) % PT (11.1-14.7) Seconds INR APTT (22.3-36.8) Seconds Sodium (137-145) mmol/L Potassium (3.4-5.0) mmol/L Chloride (98-107) mmol/L Carbon Dioxide (22-30) mmol/L Anion Gap (4-12) mmol/L BUN (9-20) mg/dL Creatinine (0.7-1.3) mg/dL Estim Creat Clear Calc ml/min Estimated GFR (59 - ) Glucose (65-110) mg/dL POC Capillary Glucose 125 H (65-105) mg/dl Hemoglobin A1c (<5.7) % Calcium (8.4-10.2) mg/dL Magnesium (1.6-2.3) mg/dL Total Bilirubin (0.2-1.3) mg/dL AST (17-59) U/L ALT (6-50) U/L Alkaline Phosphatase (38-126) U/L Ammonia (9-30) umol/L Total Creatine Kinase (55-170) U/L Troponin I (0.000-0.034) ng/mL NT-Pro-B Natriuret Pep (19.9-100) pg/mL Total Protein (6.3-8.2) g/dL Albumin (3.5-5.1) g/dL Lipase (23-300) U/L Vitamin B12 (239-931) pg/mL TSH (0.465-4.680) uIU/mL Urine Color (Yellow) Urine Appearance (Clear) Urine pH (5.0-9.0) Ur Specific [place] (1.001-1.035) Urine Protein (Negative) mg/dL Urine Glucose (UA) (Negative) mg/dL Urine Ketones (Negative) mg/dL Ur Blood (Man) (Negative) Urine Nitrate (Negative) Urine Bilirubin (Negative) Urine Urobilinogen (<2.0) mg/dL Leukocyte Esterase Rfl (Negative) CHUY/UL Urine RBC (0-2) /hpf Urine WBC (0-3) /hpf Ur Squamous Epith Cells (Few) /hpf Urine Bacteria /hpf Urine Casts Salicylates (2-20) mg/dL Urine Opiates Screen (Negative) Urine Methadone Screen (Negative) Acetaminophen (10-30) ug/mL Ur Barbiturates Screen (Negative) Ur Phencyclidine Scrn (Negative) Ur Amphetamine Screen (Negative) U Benzodiazepines Scrn (Negative) Urine Cocaine Screen (Negative) U Cannabinoids Screen (Negative) Ethyl Alcohol (<10) mg/dL Influenza A (RT-PCR) (Negative) Influenza B (RT-PCR) (Negative) RSV (RT-PCR) (Negative) SARS-CoV-2 RNA (RT-PCR) (Negative) <Carol Ann Cline MD - Last Filed: 06/24/24 18:25> Imaging Data Radiologist's impression: IMPRESSION: 1. Stable mild chronic lung disease. IMPRESSION: 1. 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 2. Extensive nonspecific cerebral white matter disease, which likely represents chronic small vessel ischemic disease. Impressions Abdomen/Pelvis CT 06/23/24 22:40 IMPRESSION: No acute intra-abdominal findings. Innumerable nonacute findings, as detailed above Head/Neck CTA 06/24/24 00:01 IMPRESSION: 1. Normal CTA head and neck. Percent stenosis per NASCET criteria is 0% <Carol Ann Cline MD - Last Filed: 06/24/24 18:25> ECG Data EKG #1: Attestation: I personally reviewed and interpreted this ECG as follows: <Carol Ann Cline MD - Last Filed: 06/24/24 18:25> ECG completion date: 06/23/24 <Carol Ann Cline MD - Last Filed: 06/24/24 18:25> ECG completion time: 15:53 <Carol Ann Cline MD - Last Filed: 06/24/24 18:25> Prior ECG tracings: available for review (EKG dated 05/10/2024 also showed right bundle branch block and left anterior fascicular block) <Carol Ann Cline MD - Last Filed: 06/24/24 18:25> Interpretation: Normal sinus rhythm at a rate of 68 beats per minute. There is some R to R variation consistent with a sinus arrhythmia likely due to respiratory variation. IN interval 189. QRS 142. QT/QTC 454/471. RBBB given QRS greater [id number]; RSR' M-shaped pattern in V1-V3; wide, slurred S wave in lateral leads (I, aVL, V5-6). Left anterior fascicular block with rS complexes in leads II, III, aVF (small R waves, deep S waves), slight qR complexes in lead I , avL (small Q waves and tall R waves) and left axis deviation with Leads II, III and aVF negative and leads I and aVL positive. <Carol Ann Cline MD - Last Filed: 06/24/24 18:25> EKG #2: Attestation: I personally reviewed and interpreted this ECG as follows: <Carol Ann Cline MD - Last Filed: 06/24/24 18:25> ECG completion date: 06/23/24 <Carol Ann Cline MD - Last Filed: 06/24/24 18:25> ECG completion time: 21:26 <Carol Ann Cline MD - Last Filed: 06/24/24 18:25> Interpretation: Normal sinus rhythm with PVCs. Rate of 76. right bundle-branch block and left anterior fascicular block. IN interval 198. QRS 145. QT/QTC 440/470. 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, Normocytic anemia, Chest pain in adult, Hyperglycemia, Encephalomalacia on imaging study, Glucosuria Protein in urine Qualifiers: Proteinuria type: unspecified Qualified Code(s): R80.9 - Proteinuria, unspecified Diabetes Qualifiers: Diabetes mellitus type: type 2 Diabetes mellitus termite control technician insulin use: unspecified termite control technician insulin use status Diabetes mellitus complication status: without complication Qualified Code(s): E11.9 - Type 2 diabetes mellitus without complications Encephalopathy Qualifiers: Encephalopathy type: unspecified encephalopathy Qualified Code(s): G93.40 - Encephalopathy, unspecified <Le Segovia PA-C - Last Filed: 06/25/24 18:57> Patient Disposition: Still a Patient <DAMIAN Rick Last Filed: 06/25/24 18:57> Condition: Stable <Le Segovia PA-C - Last Filed: 06/25/24 18:57>
[2024-06-23 16:06] LABS: Basophils Absolute Auto 0.1 K/mm3 (0.0-0.1); Basophils Percent Auto 0.6 % (0.2-1.2); Eosinophils Absolute Auto 0.4 K/mm3 (0-0.3); Eosinophils Percent Auto 3.7 % (0-4.4); Hematocrit 39.4 % (42.0-52.0); Hemoglobin 12.9 g/dL (14.0-18.0); Immature Granulocyte Absolute 0.04 K/mm3 (0.00-0.031); Immature Granulocyte Percent A 0.4 % (0-0.5); Lymphocytes Absolute Auto 2.21 K/mm3 (0.9-3.2); Lymphocytes Percent Auto 23.6 % (18.3-44.2); Mean Corpuscular HGB Conc 32.7 g/dl (32-36); Mean Corpuscular Volume 91.6 fl (80-100); Mean Platelet Volume 9.2 fl (7.4-10.4); Monocytes Absolute Auto 1.2 K/mm3 (0.1-0.6); Monocytes Percent Auto 13.1 % (2.6-8.5); Neutrophils Absolute Auto 5.5 K/mm3 (1.3-6.7); Neutrophils Percent Auto 58.6 % (45.5-73.1); Platelet Count Result 284 k/mm3 (150-375); Red Cell Distribution Width 14.5 % (11.5-14.5); White Blood Count 9.4 K/mm3 (4.5-10.0)
[2024-06-23 16:16] LABS: Alanine Aminotransferase 19 U/L (6-50); Albumin Level 4.1 g/dL (3.5-5.1); Alkaline Phosphatase 98 U/L (38-126); Anion Gap 9 mmol/L (4-12); Aspartate Amino Transferase 25 U/L (17-59); Bilirubin,Total 0.5 mg/dL (0.2-1.3); Blood Urea Nitrogen 9 mg/dL (9-20); Calcium 8.9 mg/dL (8.4-10.2); Carbon Dioxide 28 mmol/L (22-30); Chloride 97 mmol/L (98-107); Estimated CRCL calculation 84 ml/min; Estimated Glomerular Filt Rate > 60; Glucose 168 mg/dL (65-110); Lipase 123 U/L (23-300); Potassium 4.1 mmol/L (3.4-5.0); Sodium 134 mmol/L (137-145)
[2024-06-23 16:17] LABS: Prothrombin Time 13.6 Seconds (11.1-14.7)
[2024-06-23 16:19] LABS: Partial Thromboplastin Time 30.5 Seconds (22.3-36.8)
[2024-06-23 16:27] LABS: Troponin I < 0.012 ng/mL (0.000-0.034)
[2024-06-23 21:17] VITALS: PULSE 75
[2024-06-23 21:18] VITALS: O2SAT 98
[2024-06-23 21:19] VITALS: BP 165/77; PULSE 71; RESP 16; TEMP 36.7; O2SAT 98
--- NOTE | 2024-06-23 21:19 | ECG_ITS ---
Test Date: 2024-06-23 21:26:00 Measurements Intervals [place] Rate: 76 P: 58 WV: 198 QRS: -80 QRSD: 145 T: 36 QT: 440 QTc: 496 Interpretive Statements SINUS RHYTHM WITH FREQUENT SUPRAVENTRICULAR PREMATURE COMPLEXES RIGHT BUNDLE BRANCH BLOCK LEFT ANTERIOR FASCICULAR BLOCK ABNORMAL ECG Compared to ECG 06/23/2024 15:53:07 ATRIAL PREMATURE COMPLEXES NOW PRESENT Electronically Signed On 06-24-2024 06:53:43 CHROME WORKER by Austin Colon D.O.
[2024-06-23 21:27] LABS: Troponin I < 0.012 ng/mL (0.000-0.034)
--- OUTSIDE RECORDS SUMMARY | 2024-06-23 21:30 | XMS_ITS | Encounter Summary ---
Author Name [facility] [place] [facility] [place] [facility] [place] Address [address] [place] [address] Care Team Providers Care Waterproofer Helper Name Role Phone MEAGHAN QUINTEROS Primary [...] PART A Aug 12, 2001 PART A [id number] [phone] JESUS ABRAHAM PATIENT MEDICARE (WNR) MEDICARE (M) PART B Aug 12, 2001 PART B [id number] [phone] JESUS ABRAHAM PATIENT Selected Encounter This section includes the information on record at [place] for the Encounter. 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 Date/Time Primary/Secondary Diagnosis Diagnosis Name Provider Source Jun 05, 2024 03:42 PM PRIMARY Blindness r eye category 4, low vision left eye category 1 SIMA LUIS [facility] Plan of Treatment: Future Appointments (+ 6 months) and Future Tests (+/- 45 days) The Plan of Treatment section includes future care activities for the patient from all [place] [facility]. This section includes future appointments and future orders which are active, pending or scheduled. Future Appointments This section includes appointments that were scheduled to occur 6 months from the date of the Encounter, up to a maximum of 20 appointments. The data comes from all [facility]. Appointment Date/Time Appointment Type Appointme nt Facility Name Jun 24, 2024 11:30 AM AMBULATORY - SURGERY [facility] Jul 02, 2024 02:30 PM AMBULATORY - MEDICINE [facility] Aug 18, 2024 12:15 PM AMBULATORY SURGERY [facility] Active, Pending, and Scheduled Orders [...] Date/Time Test Type Test Details Facility Name Jun 23, 2024 02:56 PM Consult Order PT OUTPT S TL Cons Reeling And Tubing Machine Operator's Choice [facility] Advance Directives: All historical and current Section Date Range: From patient's date of to the date document was created. This section includes ALL of a patient's completed or amended [place] Advance and Rescinded Directives. The entries below indicate that a directive exists for the patient, but an actual copy is not included with this document. The data comes from all [facility]. Date Advance Directives Provider Source Oct 19, 2023 ADVANCE DIRECTIVE WANG MURILLO [facility] Dec 12, 2022 RESCINDED ADVANCE DIRECTIVE JITENDRA MEADOWS [facility] September 12, 2016 ADVANCE DIRECTIVE DISCUSSION YVETTE MEADOWS [facility] Encounter Notes: All associated encounter notes This section contains the clinical notes associated to the Encounter. Date/Time Encounter Note(s) Provider Source Jun 05, 2024 08:23 AM [facility] ON NOTE: LOCAL TITLE: [facility] INTERMEDIATE LOW VISION [facility] STANDARD TITLE: [facility] REHABILITATION NOTE DATE OF NOTE: JUN 05, 2024@08:23 ENTRY DATE: JUN 05, 2024@08:23:52 AUTHOR: SIMA LUIS COSIGNER: URGENCY: STATUS: COMPLETED INTERMEDIATE LOW VISION CLINIC THERAPY NOTE Session Date: 06/05/24 Start Time: 2:40 End Time: 3:20 Total Time: 40 mins CPT Codes: _x3____ 00550 Assistive Technology Assessment 87450 Sensory Integration Techniques 29503 Self Care Management 68648 Community/Work Reintegration Training L7510 Repair of Prosthetic Device T1016 Case Management 06735 Caregiver Training, Face to Face, Initial 30 Mins 01628 Caregiver Training, Face to Face, Additional 15 Mins Dx: 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 Recommend re-establishing care with LV clinic to assist in ADLs as granddaughter has noticed a decline in independence. 2. Diabetes without h/o retinopathy Last HGA1C 7.6 H % 02/29/2024 14:17 (-)CSME/DME on clinical exam Pt ed on the importance of tight bg control Recommend A1C <7% to reduce risk of ocular complications 3. Wet AMD OU +AG, +quit smoking ~1984, +AREDS OD: converted to wet c pinpoint hemorrhage 01/2020. Exudation resolved s/p TAMMY by 03/2020 Repeat hemorrhage 10/2020 -underwent series of TAMMY Centrally with RPE changes vs prominent choroidal vessel - photos 04/18/21 for documentation because it almost looks like hemorrhage on exam but is not GA limits vision, on PRN for hemes or large changes OS: Treatment prior to 2014 Previously dry up until 28 weeks, but recurred 11/27/18 Recently with large worsening of fluid at 8wks 09/2020 c sub-RPE and sub-retinal heme, resolved 02/07/21. TE 11w, still with mild SRF ->11w last injection 02/2024 Continue f/u with [facility] as directed, next 05/26/24 VISUAL ACUITY: OD CF (stable) OS ph20/70+2 [x] WITH CORRECTION [] WITHOUT CORRECTION BETTER FUNCTIONING EYE: [] RIGHT EYE [x] LEFT EYE VISUAL FIELD (if applicable): RELEVANT MEDICAL HISTORY: [x] DIABETES [] CVA [] COGNITIVE IMPAIRMENT [] DEPRESSION [] UPPER/LOWER EXTREMITY IMPAIRMENT [x] HYPERTENSION [] HEARING [] OTHER: PREVIOUS BRS VISITS: [facility] LOW VISION: 06/07/21 [facility] LOW VISION THERAPY: 06/07/21 VIST: BROS: 1. CURRENT LOW VISION DEVICES IN GENERAL, ARE THEY HELPFUL? [] YES [] NO MOST HELPFUL: 3.5X [employer] REPLACEMENTS NEEDED: NOT USEFUL: 2. LIVING SITUATION Lives: [x]Alone []With: Lives in: []House []Apartment [x]Assisted Living []Assisted []Other: Difficulties bumping into things at home due to vision: [] Yes [x]No Comments: 3. CURRENT LIGHTING IN THE HOME Type of Lighting Currently at Home:[x]Overhead [x]Table Lamp(s) []Task Lamps Light Sensitivity: [x]Yes []No Due to: [x]Sunlight []Glare []Indoor/Outdoor Lighting Wear Sunglasses/Tinted Glasses: [x] Yes [] No Comments: 4. ADLS/SELF CARE: a. Bathing: [x]Independent []Needs Assist []Dependent b. Grooming: [x]Independent []Needs Assist []Dependent c. Getting Dressed: [x]Independent []Needs Assist []Dependent d. ID condition/color of clothes: [x]Independent []Needs Assist []Dependent e. Eating/Drinking: [x]Independent []Needs Assist []Dependent f. Transfers: [x]Independent []Needs Assist []Dependent COMMENTS: 5. HOME/PERSONAL MANAGEMENT: a. Food Preparation: []Independent [x]Needs Assist []Dependent b. Household cleaning/laundry: []Independent [x]Needs Assist []Dependent c. Grocery Shopping: []Independent [x]Needs Assist []Dependent d. Using the Telephone: [x]Independent []Needs Assist []Dependent e. Tell the time and date: [x]Independent []Needs Assist []Dependent f. Finances/ID Currency: []Independent [x]Needs Assist []Dependent COMMENTS: [place] gets his main meals at his facility; Granddaughter helps with cleaning, grocery shopping, and managing finances 6. HEALTHCARE MANAGEMENT: a. Read/Identify Medications: []Independent [x]Needs Assist []Dependent b. ID time to take medications: [x]Independent []Needs Assist []Dependent c. Pill Organization: []Independent [x]Needs Assist []Dependent d. Eye Drop Administration: []Independent []Needs Assist []Dependent [x]N/A e. Perform Diabetic Management: []Independent []Needs Assist []Dependent []N/A f. Check Blood Pressure: []Independent []Needs Assist []Dependent [x]N/A g. Check Weight: []Independent []Needs Assist []Dependent [x]N/A COMMENTS: granddaughter helps set up meds 7. ORIENTATION & MOBILITY: Assistive Device used for mobility: support cane Any Falls in the last 3 months related to vision: []YES [x]NO Do you restrict activities due to fear of falling: []Yes []No [x]More cautious Any difficulty with the following: a. Navigating outside the home []Yes [x]No []Never Alone b. Navigating steps, curbs, drop-offs []Yes [x]No 8. DRIVING []Yes [x]No If No, who assists with transportation? granddaughter, family If Yes, do you have any limitations (i.e. glare, driving at night, etc)? Comments: 9. ELECTRONIC DEVICES DO YOU USE ANY OF THE FOLLOWING? [] COMPUTER [] TABLET [] SMARTPHONE [] FLIP DIFFICULTIES USING DEVICE(S): COMMENTS: 10. HOBBIES, INTERESTS, DAILY ACTIVITIES LIST: [] YES [] NO CESSATION OF ACTIVITIES DUE TO VISION LOW VISION THERAPY TRAINING GOALS AGREED UPON BY INSTRUCTOR AND : The primary goal in Low Vision Therapy is the enhancement of visual functioning. Patient-Specific Goals: 1. will be able to utilize electronic magnification for improved reading performance by end of visit. 2. LOW VISION THERAPY: The training plan was verbally prepared with the using the written recommendations of a [facility] anatomical embalmer. The plan of care was discussed by the [facility]'s interdisciplinary team. The following activities will be provided to explore, train, and evaluate potential to enhance vision: Use of absorptive filters for outdoor and indoor glare and light control; Lighting evaluation and instruction; Illumination and magnification for short term and long-term reading; Illumination and magnification for watching television and distance viewing. Training, Practice, and Education: was oriented to and instructed in the devices indicated below, including the parts, use, storage, and maintenance of items selected. demonstrated independence with use or has assistance from a caregiver, friend, or family member. ILLUMINATION Purpose: To increase illumination for visual tasks. Options Trialed: [x]Eschenbach Mg Lumina []Daylight Flexi-Vision Floor []Sunlight Floor []Sunlight Table []Demetria Lamp []Flashlight []Headlamp [x]Other: [place] table lamp, Slimline table lamp Patient Preferred: []Eschenbach Mg Lumina []Daylight Flexi-Vision Floor []Sunlight Floor []Sunlight Table []Demetria Lamp []Flashlight []Headlamp [x]Other: Slimline table lamp Assessment: Pt was oriented to the device and its parts successfully. Training and Practice: Pt was instructed in the use, storage, and maintenance of the device. DESKTOP ELECTRONIC MAGNIFIER: How will the patient use the CCTV? reading mail, magazines In what environment will the CCTV be used? home Devices Trialed: Optelec Hooven Device Preferred: Optelec Hooven Color/Polarity Preference: Color mode Linear Magnification: Approx 4X to read magazine Problem Solving: Good Assessment: demonstrates ability to perform the following tasks independently and successfully: Identify and effectively utilize standard and auxiliary controls; Appropriately adjust the table and device settings for viewing pictures; Appropriately adjust the range of magnification appropriate to task; Utilize the device for handwriting and filling out forms; Utilize the device for reading different types of materials (newspaper, etc); Utilize the device for hand skill activities. Emilia would also benefit from the CCTV table to best set up in his apartment Plan: [place] was instructed in the use, storage, and maintenance of the CCTV. Item ordered for emilia this date. 'S RESPONSE TO TREATMENT MOTIVATED FOR TRAINING? [x] Yes [] No Participation: Good Compliance: Good POTENTIAL BARRIERS FOR TRAINING? [X] None [] Cognitive [] Motivation [] Physical Comments: did perseverate on getting glasses adjusted during appointment, but was able to be re-directed ADDITIONAL COMMUNITY RESOURCES: []Talking Book Library State:[] [place][] [place] [][employer] (newspaper reading service) [][employer] Newsline []Free Directory Assistance [][place] Tele[employer] Access Program ([place] TAP) (iPhone, iPad, Prolebrity cell phone) []State Blind Rehab Services [][place] [employer] and [employer]ually Impaired Safety: []Education was provided and consult requested for [place] Alert. []Encouraged attendance in inpatient [facility] ([facility]) []Encouraged attendance in monthly VIST support group [x]Provided support/adjustment counseling []Provided education on community resources []Provided education on the following resources - Referred to Visual Impairment Services Team (VIST) Coordinator: [x] No-additional services not indicated at present [] Yes-Legally Blind [] Yes-Low Vision and additional case management requested Reason: [] Support Group/Adjustment to vision loss [] Transportation Resources [] Evaluate for additional Blind Rehab Services: [] Referral to Community Agency: (state agency and reason) [] Discuss VA benefits: [] Other: Assessment: -Pt demonstrated ability to use new devices independently and successfully. Family/caregiver assisted , as needed, for optimal use of device. -The individual plan of care (POC) was agreed upon by the and the [facility]'s interdisciplinary team. -Any cognitive or psychological impairment in the patient's medical record were noted and accommodated for during training. Referrals to patient's PCP and Mental Health were placed if necessary. -Pt's family participated in the rehabilitative process. Pt and family were advised of safety concerns if applicable. Plan: -Pt has achieved individual goals and training is complete. -RTC per Low Vision OD note: [] 1 year [x] 6 months [] Other: -Optical devices ordered per OD: None -Low vision aids ordered per LVT: From [employer]: OttLite SlimLine Task Lamp-White [id number] From [employer]: Optelec Hooven Plus 24 True Color HD CCTV CV+24TC-HD-UFA 20x36 Adjustable Height Table for CCTV 2035-table /es/ SIMA LUIS OTD, OTR/L, CLVT Signed: 06/05/2024 15:58 SIMA LUIS [facility]
--- OUTSIDE RECORDS SUMMARY | 2024-06-23 21:30 | XMS_ITS | Encounter Summary ---
Author Name [facility] [place] [facility] [place] Address [address] [place] [address] Care Team Providers Care Clay Roaster Name Role Phone MEAGHAN QUINTEROS Primary Care [...] PART A Aug 12, 2001 PART A [id number] [phone] JESUS ABRAHAM PATIENT MEDICARE (WNR) MEDICARE (M) PART B Aug 12, 2001 PART B [id number] JESUS ABRAHAM PATIENT Selected Encounter This section includes the information on record at [place] for the Encounter. Date/Time Encounter Type Encounter Description Reason Pro vider Source Jun 23, 2024 12:54 PM Outpatient Encounter TELEPHONE TRIAGE IHE Encounter Template Text not used by [place] Plan of Treatment: Future Appointments (+ 6 [...] 20 appointments. The data comes from all [facility]. Appointment Date/Time Appointment Type Appointme nt Facility Name Jun 24, 2024 11:30 AM AMBULATORY - SURGERY [facility] Yohan [facility] Jul 02, 2024 02:30 PM AMBULATORY - MEDICINE [facility] Aug 18, 2024 12:15 PM AMBULATORY - SURGERY [facility] Dec 10, 2024 10:00 AM AMBULATORY - REHAB MEDICIN E [facility] Dec 10, 2024 11:00 AM AMBULATORY - REHAB MEDICIN E [facility] Active, Pending, and Scheduled Orders This section includes a listing of several types of active, pending, and scheduled orders, including clinic medications orders, diagnostic test orders, procedure orders and consult orders; where the start date of the order is 45 days before the date of the Encounter or 45 days after the date of theEncounter. The data comes from all [facility]. Test Date/Time Test Type Test Details Facility Name Jun 23, 2024 02:56 PM Consult Order PT OUTPT S TL Cons Personal Care Service Provider's Choice [facility] Social History: Smoking Status (Most current) [...] Dena ity Nov 23, 2023 11:30 AM [place]-TOBACCO NEVER USED [facility] Tobacco Use History This section includes a history of the smoking, or tobacco-related health factors, that were collected on or before the date of the Encounter. The data comes from the [place] facility where the Encounter took place. Date/Time Smoking Status/Tobacco Use Comment F acility Nov 23, 2023 11:30 AM [place]-TOBACCO NEVER USED [facility] Nov 23, 2023 11:30 AM [place]-TOBACCO QUIT 15 YRS OR MORE [facility] Nov 14, 2023 01:18 AM ORYX ADMIT TOBACCO SCREEN NO [facility] Aug 04, 2022 11:30 AM VA-TOBACCO [...] 07, 2006 09:21 AM TOBACCO OFFERRED S TOP SMOKING CLINIC [facility] Aug 25, [...] 19, 2023 ADVANCE DIRECTIVE WANG MURILLO [facility] Dec 12, 2022 RESCINDED ADVANCE DIRECTIVE JITENDRA MEADOWS [facility] September 12, 2016 ADVANCE DIRECTIVE DISCUSSION YVETTE MEADOWS [facility] Encounter Notes: All associated encounter notes This section contains the clinical notes associated to the Encounter. Date/Time Encounter Note(s) Provider Source Jun 23, 2024 12:54 PM RN PROGRESS NOTE: LOCAL TITLE: CCC: CLINICAL TRIAGE STANDARD TITLE: RN PROGRESS NOTE DATE OF NOTE: JUN 23, 2024@12:54:25 ENTRY DATE: JUN 23, 2024@12:54:25 AUTHOR: YAEL CROCKETT COSIGNER: URGENCY: STATUS: COMPLETED Patient Demographics Patient Name: JESUS ABRAHAM Patient Primary [address]: [address] [place] [id number] Patient Primary Phone: [phone] Patient : [id number] Patient Age: 88 Caller/Recipient Relation to Patient: Other If Other Describe Relation to Patient: GRANDCHILD Caller Name: Nhan Burns Emergency Contact: NHAN BURNS Triage Summary Conducted triage/discussed symptoms Utilized the Triage Tool: No Chief Complaint: Halucinations Patient Disposition Patient/Caregiver agrees to plan of care: Yes Patient WHERE: ED Other Other - Patient Where Disposition: nearest ER Patient WHEN: Now Nursing Plan and Disposition Referred patient to higher level of care Instructed to go to Emergency Room (ER) Advised of Financial Disclaimer: Patient advised that recommendation for care provided during the call does not constitute an approval or authorization for payment by the [place] or its staff. Patient advised to report a community ED visit to the [facility] Office of Community Care at within 72 hours. Other course(s) of action Generated msg to PACT/Provider Nurse Summary Nurse Summary: Nhan TAYLOR for the pt reports the pt started antibiotic for UTI but continues to have hallucinations. Nhan has not seen the pt today but reports the pt sister in law who is has been with the pt today explains sx are now worse. Nhan is agreeable to take pt to nearest ER at this time. Clinical Contact Center Codes Clinic/Location: V15 STL PHONE CCC RN IMPORTANT: This note was created by [facility] Clinical Contact Center staff. Please do not alert the staff member by adding them as a signer for future communications. Alerts are not monitored by this user. /manuel/ YAEL DIAZ,RN REGISTERED NURSE Signed: 06/23/2024 12:54 Receipt Acknowledged By: 06/23/2024 13:59 /es/ JO-ANN LIN RN,MSN,CCM for AGUEDA DAWSON 06/23/2024 13:27 /es/ MEAGHAN QUINTEROS MD STAFF PHYSICIAN YAEL CROCKETT [facility]
--- OUTSIDE RECORDS SUMMARY | 2024-06-23 21:30 | XMS_ITS ---
Author Name [facility] [place] [facility] [place] Address [address] [place] [address] Care Team Providers Care Grief Counsellor Name Role Phone MEAGHAN QUINTEROS Primary Care [...] PART A Aug 12, 2001 PART A [id number] [phone] JESUS ABRAHAM PATIENT MEDICARE (WNR) MEDICARE (M) PART B Aug 12, 2001 PART B [id number] JESUS ABRAHAM PATIENT Selected Encounter This section includes the information on record at [place] for the Encounter. Date/Time Encounter Type Encounter Description Reason Provider Source Jun 05, 2024 02:00 PM OFFICE O/P EST HI 40 MIN INTERMED LOW VISION CARE ICD-10-CM H35.3213 Exudative age-rel mclr degn, right eye, with inactive scar LAUREN MARCELO Encounter Template Text not used by [place] Assessments - Encounter Diagnoses This section includes the primary and secondary diagnoses documented for the Encounter. Date/Time Primary/Secondary Diagnosis Diagnosis Name Provider Source Jun 05, 2024 03:35 PM PRIMARY Exudative age-rel mclr degn, right eye, with inactive scar LAUREN MARCELO [facility] Jun 05, 2024 03:35 PM SECONDARY Blindness r eye category 4, low vision left eye category 1 LAUREN MARCELO [facility] Jun 05, 2024 03:35 PM SECONDARY Exdtve age-rel mclr degn, left eye, with actv chrdl neovas LAUREN MARCELO [facility] Jun 05, 2024 03:35 PM SECONDARY Scotoma involving central area, bilateral LAUREN MARCELO [facility] Plan of Treatment: Future Appointments (+ 6 months) and Future Tests (+/- 45 days) The Plan of Treatment section includes future care activities for the patient from all [place] treatmentfacilities. This section includes future appointments and future orders which are active, pending or scheduled. Future Appointments This section includes appointments that were scheduled to occur 6 months from the date of the Encounter, up to a maximum of 20 appointments. The data comes from all [place] treatment [facility]. Appointment Date/Time Appointment Type Appointme nt Facility Name Jun 24, 2024 11:30 AM AMBULATORY - SURGERY [facility] Jul 02, 2024 02:30 PM AMBULATORY - MEDICINE [facility] Aug 18, 2024 12:15 PM AMBULATORY - SURGERY [facility] Active, Pending, and Scheduled Orders This section includes a listing of several types of active, pending, and scheduled orders, including clinic medications orders, diagnostic test orders, procedure orders and consult orders; where the start date of the order is 45 days before the date of the Encounter or 45 days after the date of theEncounter. The data comes from all [facility]. Test Date/Time Test Type Test Details Facility Name Jun 23, 2024 02:56 PM Consult Order PT OUTPT S TL Cons Traffic Operations Manager's Choice [facility] Advance Directives: All historical and [...] Source Oct 19, 2023 ADVANCE DIRECTIVE LIDIAWANG KATHLEEN [facility] Dec 12, 2022 RESCINDED ADVANCE DIRECTIVE JITENDRA MEADOWS [facility] September 12, 2016 ADVANCE DIRECTIVE DISCUSSION YVETTE MEADOWS [facility] Encounter Notes: All associated encounter notes This section contains the clinical notes associated to the Encounter. 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 Conditions relevant to low vision rehabilitation: [x] diabetes mellitus [] stroke/TIA [] other: [] hearing impairment [] dementia Visual morales not available. Ocular inventory [] eye pain [] burning, itching, tearing, redness [] photophobia [] flashes, floaters [] headaches [] amaurosis fugax [] Dk Bonnet syndrome [] monocular [] visual field loss Ocular history [] eye injury or trauma [x] eye surgery or treatment s/p CE/PCIOL OU s/p multiple TAMMY injections OD (last 08/02) s/p multiple TAMMY injections OS (last 05/26/24) [] ongoing ocular treatment or planned surgery Chronology of vision loss: He reports starting to lose his vision in each eye, gradually since the late . His AMD OD converted from dry to wet in 2019. His vision decreased significantly OD>OS between 2021 and 2024. Ocular medications: AREDS2 BID PO - Obtains outside [facility] and interview: accompanied by granddaughter, Cassandra Pt ambulating independently to OD room today. Patient presents for [facility] evaluation, last 3 years prior, to address the followin. Worsening vision OS in the past 12 mo - OS has been his better-seeing eye for several years. - Wears glasses most of the time. - Recently got his new BF/NVO and needs both frames ajdusted today. - Not entirely bothered by bright lights indoors/outdoors. 2. Reading - Mobilux works better than minibrite - Bills and letters - Reads the meal menu at his retirement facility (pt not interested in participating in facility activities) - Granddaughter helps manage his meds - Likes to sort through his mail; however, has been having a harder time with this lately, so he's let it pile up until his family visits. General goals are difficult to determine through conversation with the pt. Granddaughter assisted with providing her knowledge of his ADLs/IADLs. [place] His spouse summer 2023, and he now resides in an independent retirement facility. Functional HPI: see Low Vision Therapy note for LV VFQ results. Specific difficulties due to visual impairment: see above Goals/needs stated for rehabilitation and their priority for the patient: 1.Get glasses adjusted 2.Check vision 3.Near device demo for reading mail LENSOMETRY 1: FT-28 BF from 06/07 OD: +1.00 -2.00 x 100 OS: +1.50 -2.50 x 090 ADD: +3.00 LENSOMETRY 2: NVO from 06/07 OD: +4.00 -2.00 x 100 OS: +4.50 -2.50 x 090 PRIMARY GAZE VISUAL ACUITY with current correction EV Position (S/I/N/T) /Fixation Stability (good/fair/poor) Chart used: Feinbloom OD, Snellen OS OD: 2/350 (EV) OS: 20/200+1 (primary) 20/100-2 (EV) NEAR ACUITY using continuous text OU: 2.5M/0.30m (tilting card, spotting) AMSLER GRID OD: large scotoma, 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 Tears Unremarkable OU Cornea All layers clear OU Conjunctiva No injection, papillae/follicles OU Sclera White and quiet OU Ant Chamber Deep and quiet OU No cells/flare OU Iris Unremarkable, (-)NVI OU Lens PCIOL centrally clear OU (undilated) LOW VISION DEVICE ASSESSMENT ---- Current/Previously Issued Devices: Minibrite 3x Markoshsatya silvestre, aniya [id number] Vario LED Flex Lamp 22.6 2781-5 Vario LED Flex Lamp Base 2781-9 Mobilux LED HHM 3.5x ---- ADL aids demonstrated: see Low Vision Therapy note Tint Assessment Indoors: no new needs identified Outdoors: no new needs identified For Near: Pt proficient with use and independent with adjustment after average demo of below devices: Illuminated hand held magnifiers - Mobilux 3.5x: cc, spot 1.6 and 1.3M - Mobilux 5x: difficult for pt to focus Hands free devices assessed by the low vision therapist: - Task lighting (granddaughter notes the lamp behind his recliner is not very bright) For intermediate: no new needs identified For distance: no new needs identified CCTV assessment (see low vision therapy note) Functional level: - Recommend electronic magnifier (desktop CCTV >> PEM) eval with LVT. Assessment: 06/05/2024 1. 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 Reading performance: [place] is able to read 1.3M with near ADD and 3.5x illuminated magnification. His reading performance is expected to improve with electronic magnification (desktop CCTV). Patient's attitude: [place] has a good understanding regarding his ocular diagnoses and how it has contributed to his visual symptoms. Patient's goals: 1.Get glasses adjusted 2.Check vision 3.Near device demo for reading mail Visual acuity is reduced OD and OS to last low vision exam. Ongoing or planned ocular treatment that might affect low vision recommendations. [x] yes [ ] no Details: continued injections OS 2. 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 Refractive error Plan: 06/05/2024 1. Pt also evaluated by low vision therapist today. See prosthetics consult for devices ordered. Patient instructed on proper use and care of magnifiers and devices. Discussed magnification and the effect on field and working distance. The individual plan of care (POC) was discussed by the [facility]'s interdisciplinary team. Any cognitive or psychological impairments in the patient's medical record were noted and accommodated for during training. Referrals to the PCP and Mental Health were placed if necessary. RTC low vision for follow-up in 6mo. - Vision check - Goal follow-up. 2. Keep scheduled ocular health appointment 08/18/2024 with [facility]. Continue with current ocular medications AREDS2 BID PO 3. Continue with the following glasses from 06/07 in polycarbonate 1) Lined BF, full-time wear. 2) NVO, prolonged near tasks PRN. Advised of safety precautions Disclaimer: Visual acuity and visual morales given in this summary are derived using techniques, lighting, and equipment designed for low vision rather than the standard techniques, lighting, and equipment described in the VA PHYSICIANS GUIDE DISABILITY EVALUATION EXAMINATION and cannot be used for rating purposes. Referred to Visual Impairment Services Team (VIST) Coordinator: Reason: [] VIST Review [] requests contact by VIST Coordinator [] Support Group/Adjustment to vision loss [] Transportation Resources [] Evaluate for additional Blind Rehab Services: [] Referral to Community Agency: (state agency and reason) [] Discuss VA benefits: [] Other: [] Education provided and consult requested for [place] Alert/[place] Alert [] Encouraged attendance at inpatient [facility] ([facility]) [] Encouraged attendance at monthly [facility]IST support group [x] Provided support and/or adjustment counseling [] consult sent for psychological services [] Provided education of community resources Patient/family education note: Barrier to patient education identified: [] none [] non-Danish speaking [x] cognitive [] hearing impaired [] emotional/psychological [] spiritual practices [x] visually impaired [] inability to read [] other [] not receptive to learning Preferred method of learning: [] verbal [] written [x] demonstration Patient/family response (outcome): Demonstrates skill (s) safely and effectively Verbalized critical information about the topic Family/caregiver intend to assist in care/instruction Family/caregiver advised of health and safety concerns and verbalize understanding of all recommendations made by the IL[facility]. Other: n/a Final recommendations and optical devices to be ordered listed below: none Non-optical devices will be ordered by the low vision therapist. Stop Time: 14:35 (36 min) --------- Time spent w/following (included in total time unless otherwise specified): - Refraction: 0 min (separate procedure) - Chart completion: 12 min (15:23-15:35) Total Time: 48 min /manuel/ Lauren Marcelo OD Staff Physician, Optometry Signed: 06/05/2024 15:37 LAUREN MARCELO [facility]
--- OUTSIDE RECORDS SUMMARY | 2024-06-23 21:31 | XMS_ITS | Encounter Summary ---
Author Name [facility] [place] Address [address] [place] [address] Care Team Providers Care Crepe Box Tender Name Role Phone MEAGHAN QUINTEROS Primary [...] PART A Aug 12, 2001 PART A [id number] B[place] BUTT PATIENT MEDICARE (WNR) MEDICARE (M) PART B Aug 12, 2001 PART B [id number] JESUS ABRAHAM PATIENT Selected Encounter This section includes the information on record at [place] for the Encounter. Date/Time Encounter Type Encounter Description Reason Pro vider Source Jun 23, 2024 02:20 PM Outpatient Encounter ADMIN PAT ACTIVTIES (MASNONCT) [...] 24, 2024 11:30 AM AMBULATORY - SURGERY [facility] Jul 02, 2024 02:30 PM AMBULATORY - MEDICINE [facility] Aug 18, 2024 12:15 PM AMBULATORY - SURGERY [facility] Dec 10, 2024 10:00 AM AMBULATORY - REHAB MEDICIN E [facility] Dec 10, 2024 11:00 AM AMBULATORY - REHAB MEDICIN E [facility] Active, Pending, and Scheduled Orders This [...] Consult Order PT OUTPT S TL Cons Instrument/Control Technician's Choice [facility] Social History: Smoking Status (Most current) and [...] 23, 2023 11:30 AM VA-TOBACCO NEVER USED [facility] Tobacco Use History This section includes a history of the smoking, or tobacco-related health factors, that were collected on or before the date of the Encounter. The data comes from the [place] facility where the Encounter took place. Date/Time Smoking Status/Tobacco Use Comment F acbailey Nov 23, 2023 11:30 AM [place]-TOBACCO NEVER USED [facility] Nov 23, 2023 11:30 AM VA-TOBACCO QUIT 15 YRS OR MORE [facility] Nov 14, 2023 01:18 AM ORYX ADMIT TOBACCO SCREEN NO [facility] Aug 04, 2022 11:30 AM VA-TOBACCO NEVER USED [facility] Mar 11, 2021 10:30 AM VA-TOBACCO FORMER USER [facility] Mar 11, 2021 10:30 AM VA-TOBACCO QUIT 15 YRS OR MORE [facility] Apr 19, 2018 09:07 AM VA-TOBACCO FORMER USER [facility] Apr 19, 2018 09:07 AM VA-TOBACCO QUIT 15 YRS OR MORE [facility] Jul 24, 2017 08:16 AM QUIT TOBACCO >7 YEARS AGO [facility] Apr 16, 2017 12:43 PM QUIT TOBACCO >7 YEARS AGO [facility] Feb 01, 2017 11:47 AM LIFETIME NON-USER OF TOBACCO [facility] Nov 15, 2016 09:00 AM QUIT TOBACCO >7 YEARS AGO [facility] September 11, 2016 06:27 PM QUIT TOBACCO >7 YEARS AGO [facility] Dec 09, 2015 10:17 AM QUIT TOBACCO >7 YEARS AGO [facility] Jan 05, 2015 08:22 AM CURRENT TOBACCO USER [facility] Jan 05, 2015 08:22 AM TOBACCO MEDS OFFER ED BUT DECLINED [facility] Mar 18, 2014 10:40 AM CURRENT TOBACCO USER [facility] Mar 18, 2014 10:40 AM TOBACCO MEDS OFFER ED BUT DECLINED [facility] Nov 04, 2013 09:40 AM CURRENT TOBACCO USER [facility] Nov 26, 2012 08:10 AM QUIT TOBACCO >7 YEARS AGO [facility] May 03, 2009 08:45 AM QUIT TOBACCO >7 YEARS AGO [facility] Jul 06, 2008 08:46 AM CURRENT TOBACCO USER [facility] Jul 25, 2007 12:30 PM QUIT TOBACCO >12 M O & <7 YRS AGO [facility] Jun 07, 2006 09:21 AM CURRENT TOBACCO USER [facility] Jun 07, 2006 09:21 AM TOBACCO [facility] S[facility] Aug 25, 2005 11:01 AM CURRENT TOBACCO USER [facility] Aug 25, 2005 11:01 AM TOBACCO CONTEMPLATION STAGE [facility] Oct 25, 2004 10:18 AM CURRENT NON-TOBACC O USER-HX OF USE [facility] Oct 25, 2004 10:18 AM TOBACCO TERMINATION STAGE [facility] Aug 24, 2003 10:43 AM CURRENT NON-TOBACC O USER-HX OF USE [facility] Aug 24, 2003 10:43 AM TOBACCO TERMINATION STAGE [facility] Aug 05, 2002 09:55 AM CURRENT NON-TOBACC O USER-HX OF USE QUIT [facility] Apr 15, 2001 08:28 AM CURRENT NON-TOBACC O USER-HX OF USE quit in 1979 [facility] Advance Directives: All historical and current Section [...] Oct 19, 2023 ADVANCE DIRECTIVE WANG MURILLO [facility] Dec 12, 2022 RESCINDED ADVANCE DIRECTIVE JITENDRA MEADOWS [facility] September 12, 2016 ADVANCE DIRECTIVE DISCUSSION YVETTE MEADOWS [facility] Encounter Notes: All associated encounter notes This section contains the clinical notes associated to the Encounter. Date/Time Encounter Note(s) Provider Source Jun 23, 2024 02:20 PM ADMINISTRATIVE NOT E: LOCAL TITLE: CONTACT NOTE STL STANDARD TITLE: ADMINISTRATIVE NOTE DATE OF NOTE: JUN 23, 2024@14:20 ENTRY DATE: JUN 23, 2024@14:20:48 AUTHOR: FELICITAS CHEW COSIGNER: URGENCY: STATUS: COMPLETED Veterans name and last 4 were used to verify identity Verified Veterans telephone #/Updated telephone number in the system REASON FOR CALL: Speak with a provider: (please add RNCM/Provider as an additional signer to the note) Provider: ALDAIR Question: Darren is requesting a tall walker Call Back number: /manuel/ FELICITAS CHEW [facility] Signed: 06/23/2024 14:22 Receipt Acknowledged By: 06/23/2024 14:56 /manuel/ MEAGHAN QUINTEROS MD STAFF PHYSICIAN FELICITAS CHEW [facility]
--- OUTSIDE RECORDS SUMMARY | 2024-06-23 21:31 | XMS_ITS | Encounter Summary ---
Author Name [facility] [facility] [place] Organization [facility] [place] [facility] [place] Address [address] [place] [address] Care Team Providers Care Mechanism Inspector Name Role Phone MEAGHAN QUINTEROS Primary Care [...] PART A Aug 12, 2001 PART A [id number] JESUS ABRAHAM PATIENT MEDICARE (WNR) MEDICARE (M) PART B Aug 12, 2001 PART B [id number] JESUS ABRAHAM PATIENT Selected Encounter This section includes the information on record at [place] for the Encounter. Date/Time Encounter Type Encounter Description Reason Provider Source May 26, 2024 12:40 PM CPTRZ OPH DX IMG PST SGM RTA OPHTHALMOLOGY ICD-10-CM H35.322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, left eye, with actv chrdl neovas VALORIE REED S IHOlesya Encounter Template Text not used by [facility] Assessments - Encounter Diagnoses This section includes the primary and secondary diagnoses documented for the Encounter. Date/Time Primary/Secondary Diagnosis Diagnosis Name Provider Source May 26, 2024 12:51 PM PRIMARY Exdtve age-rel mclr degn, left eye, with actv chrdl RUFINO Currie [facility] Plan of Treatment: Future Appointments (+ 6 months) and Future Tests (+/- 45 days) The Plan of Treatment section includes future care activities for the [facility] [place] [facility] This section includes future appointments and future orders which are active, pending or scheduled. Future Appointments This section includes appointments that were scheduled to occur 6 months from the date of the Encounter, up to a maximum of 20 appointments. The data comes from all [facility]. Appointment Date/Time Appointment Type Appointme nt Facility Name Jun 05, 2024 02:00 PM AMBULATORY - REHAB MEDICIN E [facility] Jun 05, 2024 03:00 PM AMBULATORY - REHAB MEDICIN E [facility] Jun 24, 2024 11:30 AM AMBULATORY - SURGERY [facility] Jul 02, 2024 02:30 PM AMBULATORY - MEDICINE [facility] Aug 18, 2024 12:15 PM AMBULATORY - SURGERY [facility] Active, Pending, and Scheduled Orders This section includes a listing of several types of active, pending, and scheduled orders, including clinic medications orders, diagnostic test orders, procedure orders and consult orders; where the start date of the order is 45 days before the date of the Encounter or 45 days after the date of theEncounter. The data comes from all [facility]. Test Date/Time Test Type Test Details Facility Name Jun 23, 2024 02:56 PM Consult Order PT OUTPT S TL Cons Waterproofing Supervisor's Choice [facility] Social History: Smoking Status (Most current) and [...] 11:30 AM VA-TOBACCO NEVER USED [facility] Tobacco Use History This section includes a history of the smoking, or tobacco-related health factors, that were collected on or before the date of the Encounter. The data comes from the [place] facility where the Encounter took place. Date/Time Smoking Status/Tobacco Use Comment F acility Nov 23, 2023 11:30 AM VA-TOBACCO NEVER USED [facility] Nov 23, 2023 11:30 AM VA-TOBACCO QUIT 15 YRS OR MORE [facility] Nov 14, 2023 01:18 AM ORYX ADMIT TOBACCO SCREEN NO [facility] Aug 04, 2022 11:30 AM VA-TOBACCO NEVER USED [facility] Mar 11, 2021 10:30 AM VA-TOBACCO FORMER USER [facility] Mar 11, 2021 10:30 AM VA-TOBACCO QUIT 15 YRS OR MORE [facility] Apr 19, 2018 09:07 AM VA-TOBACCO FORMER USER [facility] Apr 19, 2018 09:07 AM VA-TOBACCO QUIT 15 YRS OR MORE [facility] Jul 24, 2017 08:16 AM QUIT TOBACCO >7 YEARS AGO [facility] Apr 16, 2017 12:43 PM QUIT TOBACCO >7 YEARS AGO [facility] Feb 01, 2017 11:47 AM LIFETIME NON-USER OF TOBACCO [facility] Nov 15, 2016 09:00 AM QUIT TOBACCO >7 YEARS AGO [facility] September 11, 2016 06:27 PM QUIT TOBACCO >7 YEARS AGO [facility] Dec 09, 2015 10:17 AM QUIT TOBACCO >7 YEARS AGO [facility] Jan 05, 2015 08:22 AM CURRENT TOBACCO USER [facility] Jan 05, 2015 08:22 AM TOBACCO MEDS OFFER ED BUT DECLINED [facility] Mar 18, 2014 10:40 AM CURRENT TOBACCO USER [facility] Mar 18, 2014 10:40 AM TOBACCO MEDS OFFER ED BUT DECLINED [facility] Nov 04, 2013 09:40 AM CURRENT TOBACCO USER [facility] Nov 26, 2012 08:10 AM QUIT TOBACCO >7 YEARS AGO [facility] May 03, 2009 08:45 AM QUIT TOBACCO >7 YEARS AGO [facility] Jul 06, 2008 08:46 AM CURRENT TOBACCO USER [facility] Jul 25, 2007 12:30 PM QUIT TOBACCO >12 M O & <7 YRS AGO [facility] Jun 07, 2006 09:21 AM CURRENT TOBACCO USER [facility] Jun 07, 2006 09:21 [facility] Aug 25, 2005 11:01 AM CURRENT TOBACCO USER [facility] Aug 25, 2005 11:01 AM TOBACCO CONTEMPLATION STAGE [facility] Oct 25, 2004 10:18 AM CURRENT NON-TOBACC O USER-HX OF USE [facility] Oct 25, 2004 10:18 AM TOBACCO TERMINATION STAGE [facility] Aug 24, 2003 10:43 AM CURRENT NON-TOBACC O USER-HX OF USE [facility] Aug 24, 2003 10:43 AM TOBACCO TERMINATION STAGE [facility] Aug 05, 2002 09:55 AM CURRENT NON-TOBACC O USER-HX OF USE QUIT [facility] Apr 15, 2001 08:28 AM CURRENT NON-TOBACC O USER-HX OF USE quit in [address] [facility] Advance Directives: All historical and current Section [...] Oct 19, 2023 ADVANCE DIRECTIVE WANG MURILLO [facility] Dec 12, 2022 RESCINDED ADVANCE DIRECTIVE JITENDRA MEADOWS [facility] September 12, 2016 ADVANCE DIRECTIVE DISCUSSION YVETTE MEADOWS [facility] Encounter Notes: All associated encounter notes This section contains the clinical notes associated to the Encounter. Date/Time Encounter Note(s) Provider Source May 26, 2024 12:40 PM OPHTHALMOLOGY NOTE : LOCAL TITLE: OPHTHALMOLOGY NOTE STL STANDARD TITLE: OPHTHALMOLOGY NOTE DATE OF NOTE: MAY 26, 2024@12:40 ENTRY DATE: MAY 26, 2024@12:40:40 AUTHOR: RUFINO REED EXP COSIGNER: URGENCY: STATUS: COMPLETED OCT Macula OU Complete Results are located in forum for provider to review OPTHALMIC MEDICATIONS ADMINISTERED @1243 TONOPEN: RT- 18 LT- 18 No Dilation Ophthetic 0.5% one drop Both eyes /es/ RUFINO REED ARMATURE REWINDER Signed: 05/26/2024 12:51 RUFINO REED [facility]
--- OUTSIDE RECORDS SUMMARY | 2024-06-23 21:31 | XMS_ITS | Encounter Summary ---
Author Name [facility] [facility] [place] [facility] [place] Address [address] [place] [address] Care Team Providers Care Assembly Detailer Name Role Phone MEAGHAN QUINTEROS Primary Care [...] PART A Aug 12, 2001 PART A [id number] JESUS ABRAHAM PATIENT MEDICARE (WNR) MEDICARE (M) PART B Aug 12, 2001 PART B [id number] JESUS ABRAHAM PATIENT Selected Encounter This section includes the information on record at [place] for the Encounter. Date/Time Encounter Type Encounter Description Reason Provider Source Jun 20, 2024 10:32 AM Outpatient Encounter ADMIN PAT ACTIVTIES (MASNONCT) LIT DE Encounter Template Text not used by [place] Plan of Treatment: Future Appointments (+ 6 [...] 20 appointments. The data comes from all [facility]. Appointment Date/Time Appointment Type Appointme nt Facility Name Jun 24, 2024 11:30 AM AMBULATORY - SURGERY [facility] Yohan [facility] Jul 02, 2024 02:30 PM AMBULATORY - MEDICINE [facility] Aug 18, 2024 12:15 PM AMBULATORY - SURGERY [facility] Dec 10, 2024 10:00 AM AMBULATORY - REHAB MEDICIN E [facility] Dec 10, 2024 11:00 AM AMBULATORY - REHAB MEDICIN E [facility] Active, Pending, and Scheduled Orders This section includes a listing of several types of active, pending, and scheduled orders, including clinic medications orders, diagnostic test orders, procedure orders and consult orders; where the start date of the order is 45 days before the date of the Encounter or 45 days after the date of theEncounter. The data comes from all [facility]. Test Date/Time Test Type Test Details Facility Name Jun 23, 2024 02:56 PM Consult Order PT OUTPT S TL Cons Refuse Laborer's Choice [facility] Social History: Smoking Status (Most current) and Tobacco Use (All prior to encounter date) This section includes the most current, and the historical, smoking and tobacco- related health factors from the [place] facility where the Encounter took place. Current Smoking Status This section includes the most current smoking, or tobacco-related health factor, from the [place] facility where the Encounter took place. Date/Time Current Smoking Status Comment Dena ity Nov 23, 2023 11:30 AM VA-TOBACCO NEVER USED [facility] Tobacco Use History This section includes a history of the smoking, or tobacco-related health factors, that were collected on or before the date of the Encounter. The data comes from the [place] facility where the Encounter took place. Date/Time Smoking Status/Tobacco Use Comment F acility Nov 23, 2023 11:30 AM VA-TOBACCO NEVER USED [facility] Nov 23, 2023 11:30 AM NH-TOBACCO QUIT 15 YRS OR MORE [facility] Nov 14, 2023 01:18 AM ORYX ADMIT TOBACCO SCREEN NO [facility] Aug 04, 2022 11:30 AM VA-TOBACCO NEVER USED [facility] Mar 11, 2021 10:30 AM VA-TOBACCO FORMER USER [facility] Mar 11, 2021 10:30 AM VA-TOBACCO QUIT 15 YRS OR MORE [facility] Apr 19, 2018 09:07 AM VA-TOBACCO FORMER USER [facility] Apr 19, 2018 09:07 AM VA-TOBACCO QUIT 15 YRS OR MORE [facility] Jul 24, 2017 08:16 AM QUIT TOBACCO >7 YEARS AGO [facility] Apr 16, 2017 12:43 PM QUIT TOBACCO >7 YEARS AGO [facility] Feb 01, 2017 11:47 AM LIFETIME NON-USER OF TOBACCO [facility] Nov 15, 2016 09:00 AM QUIT TOBACCO >7 YEARS AGO [facility] September 11, 2016 06:27 PM QUIT TOBACCO >7 YEARS AGO [facility] Dec 09, 2015 10:17 AM QUIT TOBACCO >7 YEARS AGO [facility] Jan 05, 2015 08:22 AM CURRENT TOBACCO USER [facility] Jan 05, 2015 08:22 AM TOBACCO MEDS OFFER ED BUT DECLINED [facility] Mar 18, 2014 10:40 AM CURRENT TOBACCO USER [facility] Mar 18, 2014 10:40 AM TOBACCO MEDS OFFER ED BUT DECLINED [facility] Nov 04, 2013 09:40 AM CURRENT TOBACCO USER [facility] Nov 26, 2012 08:10 AM QUIT TOBACCO >7 YEARS AGO [facility] May 03, 2009 08:45 AM QUIT TOBACCO >7 YEARS AGO [facility] Jul 06, 2008 08:46 AM CURRENT TOBACCO USER [facility] Jul 25, 2007 12:30 PM QUIT TOBACCO >12 M O & <7 YRS AGO [facility] Jun 07, 2006 09:21 AM CURRENT TOBACCO USER [facility] Jun 07, 2006 09:21 AM [facility] Aug 25, 2005 11:01 AM CURRENT TOBACCO USER [facility] Aug 25, 2005 11:01 AM TOBACCO CONTEMPLATION STAGE [facility] Oct 25, 2004 10:18 AM CURRENT NON-TOBACC O USER-HX OF USE [facility] Oct 25, 2004 10:18 AM TOBACCO TERMINATION STAGE [facility] Aug 24, 2003 10:43 AM CURRENT NON-TOBACC O USER-HX OF USE [facility] Aug 24, 2003 10:43 AM TOBACCO TERMINATION STAGE [facility] Aug 05, 2002 09:55 AM CURRENT NON-TOBACC O USER-HX OF USE QUIT [facility] Apr 15, 2001 08:28 AM CURRENT NON-TOBACC O USER-HX OF USE quit in 1979 [facility] Advance Directives: All historical and current Section Date Range: From patient's date of to the date document was created. This section includes ALL of a patient's completed or amended [place] Advance and Rescinded Directives. The entries below indicate that a directive exists for the patient, but an actual copy is not included with this document. The data comes from all [place] facilities. Date Advance Directives Provider Source Oct 19, 2023 ADVANCE DIRECTIVE WANG MURILLO [facility] Dec 12, 2022 RESCINDED ADVANCE DIRECTIVE JITENDRA MEADOWS [facility] September 12, 2016 ADVANCE DIRECTIVE DISCUSSION YVETTE MEADOWS [facility] Encounter Notes: All associated encounter notes This section contains the clinical notes associated to the Encounter. Date/Time Encounter Note(s) Provider Source Jun 20, 2024 10:32 AM TELEHEALTH NOTE: LOCAL TITLE: TELE EMERGENCY CARE LEGAL ACTIVITY ADJUDICATOR NOTE STANDARD TITLE: TELEHEALTH NOTE DATE OF NOTE: JUN 20, 2024@10:32 ENTRY DATE: JUN 20, 2024@10:44:11 AUTHOR: LIT DE EXP COSIGNER: URGENCY: STATUS: COMPLETED referred from: [place] Dryden's name, last 4, and were verified. Encounter/Visit Type: Telephone Dryden's Phone Number, Address, Email Address and Contact Information [phone] Patient Address: [address] [place], [place] [address] Patient Email - [email or web address] Emergency Contact: CON - Patient Contacts Patient Phone Numbers: Cell: No data available Home: [phone] Work: No data available Emergency Contact: Name: NHAN MEEKS Relationship: GRANDCHILD Secondary Emergency Contact: Name: No data available Relationship: No data available Phone: No data available Secondary Next of Kin Contact Name: No data available Relationship: No data available Phone: No data available --- Age: 88 years old Gender: MALE 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 he is present for call and gave consent. she reports he was confused for couple days(had trouble finding dining العلي). denies dysuria. +ua, ran through outside lab. attempted to get abx order from pcp but having difficulty reaching them and faxing orders. reports yesterday he was a little weak and stumbled a bit when walking with grandson in hallway. pt refused ER eval at this time. connected with JUNI Dorado for further eval. Safety Assessment: Are you living in a safe environment? Patient declines to answer Are you carrying any weapons or contraband? Patient declines to answer Past Medical History/Active Problems: JAGDEEP - Active Problems 28 Active Problems PROBLEM LAST MOD PROVIDER CAD 03/10/2022 ILAN WALLACE Hyperlipidemia 03/10/2022 ILAN WALLACE Allergic rhinitis * (ICD-9-CM 477.9) 11/13/2002 JELENA TALAVERA Carcinoma, Basal Cell 08/25/2005 JELENA TALAVERA Osteoarthritis 07/25/2016 GOLDEN MANCIAAV Macular Degeneration 03/10/2022 ILAN WALLACE Colonic Polyps 03/07/2006 JELENA TALAVERA S/p colonscopy in . 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) 10/08/2008 DAO BUSTAMANTE Pain in joint involving hand (ICD-9-CM 719.44) 10/08/2008 DAO BUSTAMANTE Degeneration of intervertebral disc (ICD-9-CM 01/27/2009 DAO BUSTAMANTE 722.6) Cervical spine by CT Personal History of Colonic Polyps (ICD-9-CM 01/27/2009 DAO BUSTAMANTE V12.72) Actinic Keratosis 04/05/2010 GAB LOPEZ Knee: arthralgia * (ICD-9-CM 719.46) 07/13/2010 DAO BUSTAMANTE Other Malaise and Fatigue (ICD-9-CM 780.79) 03/29/2011 DAO BUSTAMANTE Personal History of other Malignant Neoplasm of 12/18/2012 GAB LOPEZ Skin Contact dermatitis and other eczema 02/18/2013 GAB LOPEZ 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 Current Medications: Active Outpatient Medications (including Supplies): ASPIRIN 81MG EC TAB TAKE ONE TABLET BY MOUTH ONCE A DAY ACTIVE TAKE WITH FOOD. Indication: FOR CARDIOVASCULAR DISEASE DICLOFENAC NA 1% TOP GEL APPLY 2 GM TO AFFECTED AREA(S) ACTIVE FOUR TIMES A DAY NOT MORE THAN 16 GRAMS DAILY TO ANY LOWER EXTREMITY JOINT. NOT MORE THAN 8 GRAMS DAILY TO ANY UPPER EXTREMITY JOINT. MAX 32GM/DAY OVER ALL JOINTS. (MEASURE DOSE WITH RULER ATTACHED INSIDE BOX) APPLY PRESCRIBED TO RIGHT SHOULDER Indication: FOR PAIN FLUOROURACIL 5% CREAM APPLY THIN FILM TO AFFECTED AREA(S) ACTIVE TWICE A DAY AVOID SUN EXPOSURE. FOLLOW DIRECTIONS CAREFULLY FOR PROPER HANDLING/DISPOSAL. APPLY TO SCALY SPOT UNDERNEATH RIGHT EYE, ON FACE TWICE PER PER DAY FOR 14 DAYS Indication: FOR ACTINIC KERATOSIS MECLIZINE HCL 25MG CHEW TAB CHEW AND SWALLOW ONE-HALF ACTIVE TABLET BY MOUTH THREE TIMES A DAY NEEDED CHEWABLE TABLETS MAY BE CHEWED OR SWALLOWED WHOLE. MAY CAUSE DROWSINESS. Indication: FOR VERTIGO NAPROXEN 375MG TAB TAKE ONE TABLET BY MOUTH TWICE DAILY ACTIVE NEEDED TAKE WITH FOOD. Indication: FOR ARTHRITIS PAIN ROSUVASTATIN CA 40MG TAB TAKE ONE-HALF TABLET BY MOUTH ACTIVE EVERY EVENING TO LOWER CHOLESTEROL Non-VA MULTIVITAMIN/OPHTH ANTIOX/LUTEIN CAP/TAB 1 CAP/TAB ACTIVE BY MOUTH ONCE A DAY 7 Total Medications Vital Signs (Historical/Last 3): Measurement DT TEMP RESP PULSE BP POx F(C) (L/MIN)(%) 02/29/2024 13:38 97.8(36.6) 16 73 136/68 96 11/23/2023 11:38 97.3(36.3) 16 66 122/60 97 11/13/2023 20:02 18 71 164/84 Measurement DT PAIN WEIGHT HEIGHT LB(KG)[BMI] IN(CM) 02/29/2024 13:38 0 198(89.81)[26] 11/23/2023 11:38 0 187(84.82)[25] 11/13/2023 20:02 Emergency Severity Index (BONILLA) level: Level 3 Disposition: Transferred to Tele Emergency Care Provider Time Spent: 16minutes Total time spent today 16minutes. which includes 10 minutes in medical discussion with patient. /manuel/ LIT HEBERT RN REGISTERED NURSE Signed: 06/20/2024 10:55 [facility]
--- OUTSIDE RECORDS SUMMARY | 2024-06-23 21:31 | XMS_ITS | Encounter Summary ---
Author Name [facility] Organization [facility] [place] Address [address] [place] [address] Care Team Providers Care Engine Oiler Name Role Phone MEAGHAN QUINTEROS Primary Care [...] PART A Aug 12, 2001 PART A [id number] [phone] JESUS ABRAHAM PATIENT MEDICARE (WNR) MEDICARE (M) PART B Aug 12, 2001 PART B [id number] [phone] JESUS ABRAHAM PATIENT Selected Encounter This section includes the information on record at OR for the Encounter. 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. This section includes future appointments and future orders which are active, pending or scheduled. Future Appointments This section includes appointments that were scheduled to occur 6 months from the date of the Encounter, up to a maximum of 20 appointments. The data comes from all [facility]. Appointment Date/Time Appointment Type Appointme nt Facility Name Jun 05, 2024 02:00 PM AMBULATORY - REHAB MEDICIN E [facility] Jun 05, 2024 03:00 PM AMBULATORY - REHAB MEDICIN E [facility] Jun 24, 2024 11:30 AM AMBULATORY - SURGERY [facility] Jul 02, 2024 02:30 PM AMBULATORY - MEDICINE [facility] Aug 18, 2024 12:15 PM AMBULATORY - SURGERY [facility] Active, Pending, and Scheduled Orders This section includes a listing of several types of active, pending, and scheduled orders, including clinic medications orders, diagnostic test orders, procedure orders and consult orders; where the start date of the order is 45 days before the date of the Encounter or 45 days after the date of theEncounter. The data comes from all [facility]. Test Date/Time Test Type Test Details Facility Name Jun 23, 2024 02:56 PM Consult Order PT OUTPT S TL Cons Art Objects Supervisor's Choice [facility] Social History: Smoking Status (Most current) and [...] 2023 11:30 AM VA-TOBACCO NEVER USED [facility] Tobacco Use History This section includes a history of the smoking, or tobacco-related health factors, that were collected on or before the date of the Encounter. The data comes from the [place] facility where the Encounter took place. Date/Time Smoking Status/Tobacco Use Comment F acility Nov 23, 2023 11:30 AM VA-TOBACCO NEVER USED [facility] Nov 23, 2023 11:30 AM VA-TOBACCO QUIT 15 YRS OR MORE [facility] Nov 14, 2023 01:18 AM ORYX ADMIT TOBACCO SCREEN NO [facility] Aug 04, 2022 11:30 AM VA-TOBACCO NEVER USED [facility] Mar 11, 2021 10:30 AM VA-TOBACCO FORMER USER [facility] Mar 11, 2021 10:30 AM VA-TOBACCO QUIT 15 YRS OR MORE [facility] Apr 19, 2018 09:07 AM VA-TOBACCO FORMER USER [facility] Apr 19, 2018 09:07 AM VA-TOBACCO QUIT 15 YRS OR MORE [facility] Jul 24, 2017 08:16 AM QUIT TOBACCO >7 YEARS AGO [facility] Apr 16, 2017 12:43 PM QUIT TOBACCO >7 YEARS AGO [facility] Feb 01, 2017 11:47 AM LIFETIME NON-USER OF TOBACCO [facility] Nov 15, 2016 09:00 AM QUIT TOBACCO >7 YEARS AGO [facility] September 11, 2016 06:27 PM QUIT TOBACCO >7 YEARS AGO [facility] Dec 09, 2015 10:17 AM QUIT TOBACCO >7 YEARS AGO [facility] Jan 05, 2015 08:22 AM CURRENT TOBACCO USER [facility] Jan 05, 2015 08:22 AM TOBACCO MEDS OFFER ED BUT DECLINED [facility] Mar 18, 2014 10:40 AM CURRENT TOBACCO USER [facility] Mar 18, 2014 10:40 AM TOBACCO MEDS OFFER ED BUT DECLINED [facility] Nov 04, 2013 09:40 AM CURRENT TOBACCO USER [facility] Nov 26, 2012 08:10 AM QUIT TOBACCO >7 YEARS AGO [facility] May 03, 2009 08:45 AM QUIT TOBACCO >7 YEARS AGO [facility] Jul 06, 2008 08:46 AM CURRENT TOBACCO USER [facility] Jul 25, 2007 12:30 PM QUIT TOBACCO >12 M O & <7 YRS AGO [facility] Jun 07, 2006 09:21 AM CURRENT TOBACCO USER [facility] Jun 07, 2006 09:21 AM TOBACCO [facility] Aug 25, 2005 11:01 AM CURRENT TOBACCO USER [facility] Aug 25, 2005 11:01 AM TOBACCO CONTEMPLATION STAGE [facility] Oct 25, 2004 10:18 AM CURRENT NON-TOBACC O USER-HX OF USE [facility] Oct 25, 2004 10:18 AM TOBACCO TERMINATION STAGE [facility] Aug 24, 2003 10:43 AM CURRENT NON-TOBACC O USER-HX OF USE [facility] Aug 24, 2003 10:43 AM TOBACCO TERMINATION STAGE [facility] Aug 05, 2002 09:55 AM CURRENT NON-TOBACC O USER-HX OF USE QUIT [facility] Apr 15, 2001 08:28 AM CURRENT NON-TOBACC O USER-HX OF USE quit in 1979 [facility] Advance Directives: All historical and current Section [...] Oct 19, 2023 ADVANCE DIRECTIVE WANG MURILLO [facility] Dec 12, 2022 RESCINDED ADVANCE DIRECTIVE JITENDRA MEADOWS [facility] September 12, 2016 ADVANCE DIRECTIVE DISCUSSION YVETTE MEADOWS [facility] Encounter Notes: All associated encounter notes This section contains the clinical notes associated to the Encounter. Date/Time Encounter Note(s) Provider Source May 26, 2024 12:51 PM OPHTHALMOLOGY CONS ULT: LOCAL TITLE: OPHTHALMOLOGY CONSULT ST STANDARD TITLE: OPHTHALMOLOGY CONSULT DATE OF NOTE: MAY 26, 2024@12:51 ENTRY DATE: MAY 26, 2024@12:51:06 AUTHOR: GRACE DOMINGO COSIGNER: URGENCY: STATUS: COMPLETED RETINA CLINIC Here for wet AMD f/u. VA OD CF (stable) OS ph20/70+2 was ph20/70 was phcc20/50 was 20/40-3 IOP 18/18 SLEx OD OS L/L wnl wnl C/S w/q w/q K clr clr AC d/q d/q I r/r, no NVI r/r, no NVI L PCIOL PCIOL AV syneresis syneresis DFEx (prior) RE D: 0.2, pink, nl, no rim thinning, peripapillary atrophy M: GA, no hemorrhage V: normal caliber, perfused P: flat LE D: pink, nl, no rim thinning, peripapillary atrophy M: nasal JALYN, no heme centrally no heme V: normal caliber, perfused P: flat INTRAVITREAL INJECTION LOG (OD) RIGHT EYE #Wks Date Med. # Response (+/-/=) --- injections since 201905/23/21 n/a no hemorrhage/exudation 3 mo 06/20/21 n/a no hemorrhage/exudation 4 mo 07/25/21 n/a 8 not active, maintenance INTRAVITREAL INJECTION LOG (OS) LEFT EYE #Wks Date Med. # Response (+/-/=) --- Injections since 2015 0112/18/22 TAMMY tr SRF stable 02/22/24 TAMMY tr SRF stable 05/21/23 TAMMY mildly increased SRF 07/30/23 TAMMY resolved CME 10/15/23 TAMMY stable mild CME IMAGING OCT mac 10/15/23 OD: GA, dry OS: broad PED, degenerative cysts and mild CME OCT mac 12/24/23 OD: GA, dry OS: broad PED, degenerative cysts, trace SRF OCT mac 10/28/24 OD: GA, dry OS: broad PED, degenerative cysts, trace SRF OCT mac 05/26/23 OD: GA, dry OS: dry A/P #Wet AMD OU - +AG, +quit smoking ~1984, +AREDS ---OD--- - converted 2019 - last injection 2021 - GA limits vision, on PRN for hemorrhages or large changes - Stable, observe today ---OS--- - Treatment prior to 2014 - TE 11w -> 12w FYI, patient prefers proparacaine soaked qtip rather than subconj lido Do inferotemp so qtip can sit for 5 minutes Procedure: Intravitreal Eylea/aflibercept, LEFT eye (TAMMY OS) - Risks, benefits, and alternatives discussed - Topical proparacaine drops - Topical betadine instilled and allowed to dwell for 30 seconds. - Site marked with sterile syringe after which a subsequent drop of betadine placed just before injection - 0.05 mL Eylea injected at pars plana - Additional drop of betadine following injection - Vision at least CF - No complications. 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
--- OUTSIDE RECORDS SUMMARY | 2024-06-23 21:31 | XMS_ITS | Encounter Summary ---
Author Name [facility] [place] Address [address] [place] [address] Care Team Providers Care Service Technician Name Role Phone MEAGHAN QUINTEROS Primary [...] PART A Aug 12, 2001 PART A [id number] [place] PATIENT MEDICARE ([place]NR) MEDICARE (M) PART B Aug 12, 2001 PART B [id number] [phone] JESUS ABRAHAM PATIENT Selected Encounter This section includes the information on record at [place] for the Encounter. Date/Time Encounter Type Encounter Description Reason Pro vider Source Jun 23, 2024 12:41 PM Outpatient Encounter ADMIN PAT ACTIVTIES (MASNONCT) IHE Encounter Template Text not used by [place] Plan of Treatment: Future Appointments (+ 6 [...] comes from all [facility]. Appointment Date/Time Appointment Type Appointme nt Facility Name Jun 24, 2024 11:30 AM AMBULATORY - SURGERY [facility] Jul 02, 2024 02:30 PM AMBULATORY - MEDICINE [facility] Aug 18, 2024 12:15 PM AMBULATORY - SURGERY [facility] Dec 10, 2024 10:00 AM AMBULATORY - REHAB MEDICIN E [facility] Dec 10, 2024 11:00 AM AMBULATORY - REHAB MEDICIN E [facility] Active, Pending, and Scheduled Orders [...] comes from all [facility]. Test Date/Time Test Type Test Details Facility Name Jun 23, 2024 02:56 PM Consult Order PT OUTPT S TL Cons Personal Health Coach's Choice [facility] Social History: Smoking Status [...] 23, 2023 11:30 AM VA-TOBACCO NEVER USED [facility] Tobacco Use History This section includes a history of the smoking, or tobacco-related health factors, that were collected on or before the date of the Encounter. The data comes from the [place] facility where the Encounter took place. Date/Time Smoking Status/Tobacco Use Comment F [email or web address] Nov 23, 2023 11:30 AM [place]TO[place] NEVER USED [facility] Nov 23, 2023 11:30 AM VA-TOBACCO QUIT 15 YRS OR MORE [facility] Nov 14, 2023 01:18 AM ORYX ADMIT TOBACCO SCREEN NO [facility] Aug 04, 2022 11:30 AM VA-TOBACCO NEVER USED [facility] Mar 11, 2021 10:30 AM VA-TOBACCO FORMER USER [facility] Mar 11, 2021 10:30 AM VA-TOBACCO QUIT 15 YRS OR MORE [facility] Apr 19, 2018 09:07 AM VA-TOBACCO FORMER USER [facility] Apr 19, 2018 09:07 AM VA-TOBACCO QUIT 15 YRS OR MORE [facility] Jul 24, 2017 08:16 AM QUIT TOBACCO >7 YEARS AGO [facility] Apr 16, 2017 12:43 PM QUIT TOBACCO >7 YEARS AGO [facility] Feb 01, 2017 11:47 AM LIFETIME NON-USER OF TOBACCO [facility] Nov 15, 2016 09:00 AM QUIT TOBACCO >7 YEARS AGO [facility] September 11, 2016 06:27 PM QUIT TOBACCO >7 YEARS AGO [facility] Dec 09, 2015 10:17 AM QUIT TOBACCO >7 YEARS AGO [facility] Jan 05, 2015 08:22 AM CURRENT TOBACCO USER [facility] Jan 05, 2015 08:22 AM TOBACCO MEDS OFFER ED BUT DECLINED [facility] Mar 18, 2014 10:40 AM CURRENT TOBACCO USER [facility] Mar 18, 2014 10:40 AM TOBACCO MEDS OFFER ED BUT DECLINED [facility] Nov 04, 2013 09:40 AM CURRENT TOBACCO USER [facility] Nov 26, 2012 08:10 AM QUIT TOBACCO >7 YEARS AGO [facility] May 03, 2009 08:45 AM QUIT TOBACCO >7 YEARS AGO [facility] Jul 06, 2008 08:46 AM CURRENT TOBACCO USER [facility] Jul 25, 2007 12:30 PM QUIT TOBACCO >12 M O & <7 YRS AGO [facility] Jun 07, 2006 09:21 AM CURRENT TOBACCO USER [facility] Jun 07, 2006 09:21 AM TOBACCO [facility] Aug 25, 2005 11:01 AM CURRENT TOBACCO USER [facility] Aug 25, 2005 11:01 AM TOBACCO CONTEMPLATION STAGE [facility] Oct 25, 2004 10:18 AM CURRENT NON-TOBACC O USER-HX OF USE [facility] Oct 25, 2004 10:18 AM TOBACCO TERMINATION STAGE [facility] Aug 24, 2003 10:43 AM CURRENT NON-TOBACC O USER-HX OF USE [facility] Aug 24, 2003 10:43 AM TOBACCO TERMINATION STAGE [facility] Aug 05, 2002 09:55 AM CURRENT NON-TOBACC O USER-HX OF USE QUIT [facility] Apr 15, 2001 08:28 AM CURRENT NON-TOBACC O USER-HX OF USE quit in 1979 [facility] Advance Directives: All historical [...] Oct 19, 2023 ADVANCE DIRECTIVE WANG MURILLO [facility] Dec 12, 2022 RESCINDED ADVANCE DIRECTIVE JITENDRA MEADOWS [facility] September 12, 2016 ADVANCE DIRECTIVE DISCUSSION YVETTE MEADOWS [facility] Encounter Notes: All associated encounter notes This section contains the clinical notes associated to the Encounter. Date/Time Encounter Note(s) Provider Source Jun 23, 2024 12:41 PM ADMINISTRATIVE NOT E: LOCAL TITLE: CONTACT NOTE STL STANDARD TITLE: ADMINISTRATIVE NOTE DATE OF NOTE: JUN 23, 2024@12:41 ENTRY DATE: JUN 23, 2024@12:41:57 AUTHOR: FELICITAS CHEW COSIGNER: URGENCY: STATUS: COMPLETED Veterans name and last 4 were used to verify identity Verified Veterans telephone #/Updated telephone number in the system REASON FOR CALL: New onset of symptoms (TRANSFER TO EXT. [id number]) Reason for call: is still have issues with UTI /es/ FELICITAS CHEW Lead Medical Support Signed: 06/23/2024 12:44 Receipt Acknowledged By: 06/23/2024 13:59 /manuel/ JO-ANN LIN RN,MSN,CCM for FELICITAS [facility]
--- OUTSIDE RECORDS SUMMARY | 2024-06-23 21:31 | XMS_ITS | Continuity of Care Document ---
Author Name [facility] Organization [facility] Care Team Providers Care Video Surveillance Technician Name Role Phone [facility] Unavailable Unavailable Problems Combined list of problems from Department of Defense and [facility] Affairs facilities. It does not include entries that were removed or entered in error. Problem Status Onset Date Problem Type Date of Resolution Comments Source Actinic Keratosis Active Condition [facility] Age related macular degeneration (SNOMED CT 336566180) Active Condition [facility] Allergic rhinitis * (ICD-9-CM 477.9) Active Condition [facility] Benign essential hypertension (SNOMED CT 2034655) Active Condition [facility] Benign paroxysmal positional vertigo Active Condition [facility] Carcinoma, Basal Cell Active Condition [facility] Chest pain Active Condition [facility] Colonic Polyps Active Condition Feb 122005 Entered By: JENNY TALAVERA Comment: s/p colonscopy in . 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) Active Condition Jan 27 9 Entered By: DAO BUSTAMANTE Comment: cervical spine by CT [facility] Dermatitis (SNOMED CT 235441336) Active Condition [facility] Diabetes mellitus Active Condition [facility] Diabetes Mellitus without mention of Complication, type II or unspecified type, Active Condition [facility] Dry skin (SNOMED CT 53356496) Active Condition [facility] 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 Insomnia Active Condition [facility] Knee: arthralgia * (ICD-9-CM 719.46) Active Condition [facility] Osteoarthritis of knee Active Condition [facility] Osteoarthritis of knee (SNOMED CT 942125820) Active Condition [facility] Other Malaise and Fatigue (ICD-9-CM 780.79) Active Condition [facility] Pain in joint involving hand (ICD-9-CM 719.44) Active Condition [facility] Pain in joint involving shoulder region (ICD-9-CM 719.41) Active Condition [facility] Palpitations (ICD-9-CM 785.1) Active Condition [facility] Personal History of Colonic Polyps (ICD-9-CM V12.72) Active Condition 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 Osteoarthritis * (ICD-9-CM 715.90) Inactive Condition 03/22/2007 [facility] Diagnosis: ICD-10-CM N30.00 Acute cystitis without hematuria Active Diagnosis 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 Diagnosis: ICD-10-CM H35.3134 Nexdtve age-rel mclr degn, bi, adv atrpc with subfoveal invl Active Diagnosis [facility] Diagnosis: ICD-10-CM H35.3210 Exudative age-rel mclr degn, right eye, stage unspecified Active Diagnosis [facility] Diagnosis: ICD-10-CM L57.0 Actinic keratosis Active Diagnosis [facility] Diagnosis: ICD-10-CM M17.12 Unilateral primary osteoarthritis, left knee Active Diagnosis [facility] Diagnosis: ICD-10-CM H35.321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, right eye, with inact chrdl neovas Active Diagnosis [facility] Diagnosis: ICD-10-CM Z71.0 Prsn encntr hlth serv to consult on behalf of another person Active Diagnosis [facility] Diagnosis: ICD-10-CM H81.13 Benign paroxysmal vertigo, bilateral Active Diagnosis [facility] Diagnosis: ICD-10-CM I25.10 Athscl heart disease of [place] coronary artery w/o ang pctrs Active Diagnosis [facility] Diagnosis: ICD-10-CM R07.9 Chest pain, unspecified Active Diagnosis [facility] Diagnosis: ICD-10-CM Z71.81 Spiritual or anglican counseling Active Diagnosis [facility] Diagnosis: ICD-10-CM 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 Diagnosis: ICD-10-CM R53.1 Weakness Active Diagnosis [facility] Diagnosis: ICD-10-CM R07.89 Other chest pain Active Diagnosis [facility] Diagnosis: ICD-10-CM L60.2 Onychogryphosis Active Diagnosis [facility] Diagnosis: ICD-10-CM H81.399 Other peripheral vertigo, unspecified ear Active Diagnosis [facility] Diagnosis: ICD-10-CM H35.3232 Exudative age-rel mclr degn, bi, with inact chrdl neovas Active Diagnosis [facility] Diagnosis: ICD-10-CM R05.3 Chronic cough Active Diagnosis [facility] Diagnosis: ICD-10-CM H35.3231 Exudative age-rel mclr degn, bi, with actv chrdl neovas Active Diagnosis [facility] Medications Combined list of outpatient medications from Department of Defense and Veterans Affairs facilities.Medications provided include 1) outpatient medications from the last 15 months, and 2) patient-reported medications. Medication Details Route Status Patient Instructions Prescription Expires Prescription Number Last Dispense Date Ordering Provider Order Date Order Qty Source ASPIRIN 81MG TAB,EC TAKE ONE TABLET BY MOUTH ONCE A DAY FOR CARDIOVA SCULAR DISEASE TAKE WITH FOOD. ORAL ACTIVE 03/01/2025 [id number] 4 MEAGHAN QUINTEROS 2023 120 [facility] CEPHALEXIN 500MG CAP TAKE 1 CAPSULE BY MOUTH TWICE A DAY ORAL ACTIVE Yohan BLAKE S 2024 [facility] CHOLECALCIF KULDEEP 50MCG (2,000UNIT) TAB TAKE ONE TABLET BY MOUTH ONCE A DAY FOR VITAMIN D DEFICIEN CY ORAL DISCONT INUED 2023 [id number] MEAGHAN QUINTEROS 2023 100 [facility] CHOLECALCIF KULDEEP 50MCG (2,000UNIT) TAB TAKE ONE TABLET BY MOUTH ONCE A DAY FOR VITAMIN D DEFICIEN CY ORAL DISCONT INUED 10/10/2024 [id number] 4 MEAGHAN QUINTEROS 2023 100 [facility] CHOLECALCIF KULDEEP 50MCG (2,000UNIT) TAB TAKE ONE TABLET BY MOUTH ONCE A DAY FOR VITAMIN D DEFICIEN CY ORAL 02/21/2024 [id number] 4 MEAGHAN QUINTEROS 2023 100 [facility] DICLOFENAC NA 1% GEL,TOP APPLY [...] TO RIGHT SHOULDER TOPICA L ACTIVE 10/10/2024 [id number] 4 MEAGHAN QUINTEROS 2023 100 [facility] DICLOFENAC NA 1% GEL,TOP APPLY 2 GM TO AFFECTED AREA(S) FOUR TIMES A DAY FOR PAIN NOT MORE THAN 16 GRAMS DAILY TO ANY LOWER EXTREMIT Y JOINT. NOT MORE THAN 8 GRAMS DAILY TO ANY UPPER EXTREMIT Y JOINT. MAX 32GM/DAY OVER ALL JOINTS. (MEASURE DOSE WITH RULER ATTACHED INSIDE BOX) APPLY PRESCRIB ED TO RIGHT SHOULDER TOPICA L 10/07/2023 [id number] LARACHANELL A L 2022 100 [facility] FLUOROURACI L 5% CREAM,TOP APPLY [...] FOR 14 DAYS TOPICA L ACTIVE 03/04/2025 [id number] 4 JUAN CARLOS SELF 2023 40 [facility] GUAIFENESIN 200MG TAB TAKE ONE TABLET BY MOUTH EVERY 4 HOURS NEEDED FOR MUCUS THINNING TAKE WITH 8 OUNCE GLASS OF WATER. ORAL 06/17/2023 [id number] 4 TALA ARIESA 2023 90 [facility] MECLIZINE HCL 25MG TAB,CHEWABL E CHEW AND SWALLOW ONE-HALF TABLET BY MOUTH THREE TIMES A DAY NEEDED FOR VERTIGO CHEWABLE TABLETS MAY BE CHEWED OR SWALLOWE D WHOLE. MAY CAUSE DROWSINE SS. ORAL ACTIVE 03/01/2025 [id number] 4 MEAGHAN QUINTEROS 2023 45 [facility] MECLIZINE HCL 25MG TAB,CHEWABL E CHEW AND SWALLOW ONE-HALF TABLET BY MOUTH THREE TIMES A DAY NEEDED FOR VERTIGO CHEWABLE TABLETS MAY BE CHEWED OR SWALLOWE D WHOLE. MAY CAUSE DROWSINE SS. ORAL DISCONT INUED 10/12/2024 [id number] 4 ROBERTH BURGOS 2023 45 [facility] MECLIZINE HCL 25MG TAB,CHEWABL E CHEW AND SWALLOW ONE-HALF TABLET BY MOUTH THREE TIMES A DAY NEEDED FOR VERTIGO CHEWABLE TABLETS MAY BE CHEWED OR SWALLOWE D WHOLE. MAY CAUSE DROWSINE SS. ORAL DISCONT INUED 10/10/2024 [id number] 4 TALA MEAGHAN 2023 45 [facility] MULTIVITAMI N/OPHTH ANTIOXIDANT /LUTEIN CAP/TAB TAKE 1 CAP/TAB BY MOUTH ONCE A DAY ORAL ACTIVE Candy CAUSEY MD 2015 [facility] NAPROXEN 375MG TAB TAKE ONE TABLET BY MOUTH TWICE DAILY NEEDED FOR ARTHRITI S PAIN TAKE WITH FOOD. ORAL ACTIVE 03/01/2025 [id number] 5 MEAGHAN QUINTEROS 2023 180 [facility] ROSUVASTATI N CA 40MG TAB TAKE ONE-HALF TABLET BY MOUTH EVERY EVENING TO LOWER CHOLESTE ROL ORAL ACTIVE 10/12/2024 [id number] 4 ROBERTH BURGOS 2023 45 [facility] ROSUVASTATI N CA 40MG TAB TAKE ONE-HALF TABLET BY MOUTH EVERY EVENING TO LOWER CHOLESTE ROL ORAL DISCONT INUED 11/21/2023 [id number] 4 Lian WALLACE 2022 45 [facility] SODIUM CHLORIDE 0.65% SOLN,NASAL SPRAY USE 2 SPRAYS INTO NOSTRIL( S) EVERY 4 HOURS NEEDED FOR NASAL CONGESTI ON NASAL DISCONT INUED BY PROVIDE R 10/10/2024 [id number] 4 TALAHOANG MEAGHAN 2023 135 [facility] Immunizations Combined list of available immunizations from the Department of Defense and Veterans Affairs facilities. Immunization Series Date Given Administered By Site Reaction Lot Number CVX Code Drug Collar Cutter Status Comments Source INFLUENZA, HIGH-DOSE, TRIVALENT, PF 2023 BITA IRVIN RIGHT DELTO ID [id number] 135 [facility]OM[facility] 2 2023 BITA IRVIN RIGHT DELTO ID [id number] 187 complet ed [facility] N COVID-19 ([facility]), MRNA, LNP-S, PF, FREDA-SUCROSE, 30 MCG/0.3 ML (AGES 12+ YEARS) 1 2023 BITA IRVIN RIGHT DELTO ID [id number] 309 complet ed [facility] ZOSTER RECOMBINANT 1 2023 BITA IRVIN LEFT DELTO ID [id number] 187 complet ed [facility] INFLUENZA, UNSPECIFIED FORMULATION 2021 88 complet ed [facility] COVID-19 (PFIZER), MRNA, LNP-S, PF, 30 MCG/0.3 ML DOSE 2 2020 208 complet ed [facility] INFLUENZA, UNSPECIFIED FORMULATION 2020 88 complet ed [facility] COVID-19 (PFIZER), MRNA, LNP-S, PF, 30 MCG/0.3 ML DOSE 1 2020 208 complet ed [facility] INFLUENZA, INJECTABLE, QUADRIVALENT, PRESERVATIVE FREE 2018 150 complet ed [facility] INFLUENZA, INJECTABLE, QUADRIVALENT, PRESERVATIVE FREE 2017 150 complet ed [facility] TDAP 2016 115 complet ed Left Deltoid [facility] INFLUENZA, INJECTABLE, QUADRIVALENT, PRESERVATIVE FREE 2016 150 complet ed [facility] INFLUENZA, SEASONAL, INJECTABLE, PRESERVATIVE FREE 2014 140 complet ed [facility] PNEUMOCOCCAL CONJUGATE PCV 13 2014 133 complet ed [facility] INFLUENZA, UNSPECIFIED FORMULATION 2013 88 complet ed [facility] INFLUENZA, UNSPECIFIED FORMULATION 2012 88 complet ed [facility] INFLUENZA, UNSPECIFIED FORMULATION 2011 88 complet ed [facility] INFLUENZA, UNSPECIFIED FORMULATION 2010 88 complet ed [facility] INFLUENZA, UNSPECIFIED FORMULATION 2009 88 complet ed [facility] INFLUENZA, UNSPECIFIED FORMULATION 2008 88 complet ed [facility] INFLUENZA, UNSPECIFIED FORMULATION 2007 88 complet ed [facility] TDAP 2007 115 complet ed Left Deltoid,L ot# [id number],e xp. September, g.Adace l [facility] INFLUENZA, UNSPECIFIED FORMULATION 2006 88 complet ed [facility] INFLUENZA, UNSPECIFIED FORMULATION 2005 88 complet ed per letter [facility] OUTSIDE FLU SHOT (HISTORICAL) 2004 88 complet ed [facility] PNEUMOCOCCAL, UNSPECIFIED FORMULATION 2001 109 complet ed [facility] Results Combined list of recent chemistry, hematology and other laboratory results from Department of Defense and Veterans Affairs, ranging from 15 months to all on record, depending upon the facility. Order Name Results Value Reference Range Date Interpretation Specimen Comments Source B12 COBALAMIN (VITAMIN B12) [MASS/VOLU ME] IN SERUM OR PLASMA 305 pg/mL 213 - 816 02/28 Specimen Type: SERUM No comment entered. Ordering Provider: MEAGHAN QUINTEROS Report Released Date/Time: Feb 29, 2024 02:14 PM Reporting Lab: [address] [address] Performing Lab: [address] [phone] [address] [facility] LEUKOCYTES [#/VOLUME] IN BLOOD BY AUTOMATED COUNT 10.0 10*3/uL 3.6 - 11.2 02/28 Specimen Type: BLOOD No comment entered. Ordering Provider: MEAGHAN QUINTEROS Report Released Date/Time: Feb 28, 2024 09:05 AM Reporting Lab: [address] [address] Performing Lab: [address] [phone] [address] [facility] ERYTHROCYT ES [#/VOLUME] IN BLOOD BY AUTOMATED COUNT 4.36 10*6/uL 4.10 - 5.70 02/28 Specimen Type: BLOOD No comment entered. Ordering Provider: MEAGHAN QUINTEROS Report Released Date/Time: Feb 28, 2024 09:05 AM Reporting Lab: [address] [address] Performing Lab: [address] [phone] [address] [facility] HEMOGLOBIN [MASS/VOLU ME] IN BLOOD 13.4 g/dL 13.1 - 16.8 02/28 Specimen Type: BLOOD No comment entered. Ordering Provider: MEAGHAN QUINTEROS Report Released Date/Time: Feb 28, 2024 09:05 AM Reporting Lab: [address] [address] Performing Lab: [address] [address] [facility] HEMATOCRIT [VOLUME FRACTION] OF BLOOD 39.8 38.2 - 48.4 02/28 Specimen Type: BLOOD No comment entered. Ordering Provider: MEAGHAN QUINTEROS Report Released Date/Time: Feb 28, 2024 09:05 AM Reporting Lab: [address] [address] Performing Lab: [address] [address] [facility] CBC MCV [ENTITIC VOLUME] BY AUTOMATED COUNT 91.3 fL 80.0 - 100.0 02/28 Specimen Type: BLOOD No comment entered. Ordering Provider: MEAGHAN QUINTEROS Report Released Date/Time: Feb 28, 2024 09:05 AM Reporting Lab: [address] [address] Performing Lab: [address] [address] [facility] CBC MCH [ENTITIC MASS] BY AUTOMATED COUNT 30.7 pg 27.0 - 34.0 02/28 Specimen Type: BLOOD No comment entered. Ordering Provider: MEAGHAN QUINTEROS Report Released Date/Time: Feb 28, 2024 09:05 AM Reporting Lab: [address] [address] Performing Lab: [address] [address] [facility] CBC MCHC [MASS/VOLU ME] BY AUTOMATED COUNT 33.7 g/dL 33.0 - 36.0 02/28 Specimen Type: BLOOD No comment entered. Ordering Provider: MEAGHAN QUINTEROS Report Released Date/Time: Feb 28, 2024 09:05 AM Reporting Lab: [address] [place] [address] Performing Lab: [address] [address] [facility] CBC PLATELETS [#/VOLUME] IN BLOOD BY AUTOMATED COUNT 334 10*3/uL 150 - 400 02/28 Specimen Type: BLOOD No comment entered. Ordering Provider: MEAGHAN QUINTEROS Report Released Date/Time: Feb 28, 2024 09:05 AM Reporting Lab: [address] [address] Performing Lab: [address] [address] [facility] PLATELET MEAN VOLUME [ENTITIC VOLUME] IN BLOOD BY AUTOMATED COUNT 9.2 fL 7.5 - 11.2 02/28 Specimen Type: BLOOD No comment entered. Ordering Provider: MEAGHAN QUINTEROS Report Released Date/Time: Feb 28, 2024 09:05 AM Reporting Lab: [address] [address] Performing Lab: [address] [address] [facility] CBC ERYTHROCYT E DISTRIBUTI ON WIDTH [RATIO] BY AUTOMATED COUNT 13.6 11.8 - 15.1 02/28 Specimen Type: BLOOD No comment entered. Ordering Provider: MEAGHAN QUINTEROS Report Released Date/Time: Feb 28, 2024 09:05 AM Reporting Lab: [address] [address] Performing Lab: [address] [address] [facility] SEGMENTED NEUTROPHIL S/100 LEUKOCYTES IN BLOOD BY MANUAL COUNT 66.1 02/28 Specimen Type: BLOOD No comment entered. Ordering Provider: MEAGHAN QUINTEROS Report Released Date/Time: Feb 28, 2024 09:05 AM Reporting Lab: [address] [address] Performing Lab: [facility] [address] [facility] [address] [facility] MONOCYTES/ 100 LEUKOCYTES IN BLOOD BY AUTOMATED COUNT 9.6 02/28 Specimen Type: BLOOD No comment entered. Ordering Provider: MEAGHAN QUINTEROS Report Released Date/Time: Feb 28, 2024 09:05 AM Reporting Lab: [facility] [address] [facility] [address] Performing Lab: [facility] [address] [facility] [address] [facility] EOSINOPHIL S/100 LEUKOCYTES IN BLOOD BY MANUAL COUNT 1.7 02/28 Specimen Type: BLOOD No comment entered. Ordering Provider: MEAGHAN QUINTEROS Report Released Date/Time: Feb 28, 2024 09:05 AM Reporting Lab: [facility] [address] [facility] [address] Performing Lab: [facility] [address] [facility] [address] [facility] BASOPHILS/ 100 LEUKOCYTES IN BLOOD BY MANUAL COUNT 1.7 02/28 Specimen Type: BLOOD No comment entered. Ordering Provider: MEAGHAN QUINTEROS Report Released Date/Time: Feb 28, 2024 09:05 AM Reporting Lab: [place] [address] [facility] [address] Performing Lab: [facility] [address] [facility] [address] [facility] PAPPENHEIM ER BODIES 0 02/28 Specimen Type: BLOOD No comment entered. Ordering Provider: MEAGHAN QUINTEROS Report Released Date/Time: Feb 28, 2024 09:05 AM Reporting Lab: [facility] [address] [facility] [address] Performing Lab: [facility] [address] [facility] [address] [facility] LYMPHOCYTE S/100 LEUKOCYTES IN BLOOD BY MANUAL COUNT 11.3 02/28 Specimen Type: BLOOD No comment entered. Ordering Provider: MEAGHAN QUINTEROS Report Released Date/Time: Feb 28, 2024 09:05 AM Reporting Lab: [facility] [address] [facility] [address] Performing Lab: [facility] [address] [facility] [address] [facility] VARIANT LYMPHOCYTE S/100 LEUKOCYTES IN BLOOD BY MANUAL COUNT 9.6 02/28 Specimen Type: BLOOD No comment entered. Ordering Provider: MEAGHAN QUINTEROS Report Released Date/Time: Feb 28, 2024 09:05 AM Reporting Lab: [place] [address] [place] [phone] Performing Lab: [place] [address] [facility] [phone] [address] [facility] PLATELET ADEQUACY [PRESENCE] IN BLOOD BY LIGHT MICROSCOPY ADEQUATE 02/28 Specimen Type: BLOOD No comment entered. Ordering Provider: MEAGHAN QUINTEROS Report Released Date/Time: Feb 28, 2024 09:05 AM Reporting Lab: [place] [address] [facility] [address] Performing Lab: [place] [address] [facility] [address] [facility] MANUAL DIFFERENTI AL COMMENT [INTERPRET ATION] IN BLOOD NARRATIVE Yes 02/28 Specimen Type: BLOOD No comment entered. Ordering Provider: MEAGHAN QUINTEROS Report Released Date/Time: Feb 28, 2024 09:05 AM Reporting Lab: [facility] [address] [facility] [address] Performing Lab: [place] [address] [facility] BASOPHILS [#/VOLUME] IN BLOOD BY MANUAL COUNT 0.17 10*3/uL 0.01 - 0.20 02/28 Specimen Type: BLOOD No comment entered. Ordering Provider: MEAGHAN QUINTEROS Report Released Date/Time: Feb 28, 2024 09:05 AM Reporting Lab: [address] [address] Performing Lab: [address] [address] [facility] CBC EOSINOPHIL S [#/VOLUME] IN BLOOD BY MANUAL COUNT 0.17 10*3/uL 0.00 - 0.60 02/28 Specimen Type: BLOOD No comment entered. Ordering Provider: MEAGHAN QUINTEROS Report Released Date/Time: Feb 28, 2024 09:05 AM Reporting Lab: [address] [address] Performing Lab: [address] [address] [facility] CBC MONOCYTES [#/VOLUME] IN BLOOD BY MANUAL COUNT 0.96 10*3/uL 0.19 - 0.80 02/28 H Specimen Type: BLOOD No comment entered. Ordering Provider: MEAGHAN QUINTEROS Report Released Date/Time: Feb 28, 2024 09:05 AM Reporting Lab: [address] [address] Performing Lab: [address] [address] [facility] CBC LYMPHOCYTE S [#/VOLUME] IN BLOOD BY MANUAL COUNT 2.09 10*3/uL 0.77 - 4.50 02/28 Specimen Type: BLOOD No comment entered. Ordering Provider: MEAGHAN QUINTEROS Report Released Date/Time: Feb 28, 2024 09:05 AM Reporting Lab: [address] [address] Performing Lab: [address] [address] [facility] CBC NEUTROPHIL S [#/VOLUME] IN BLOOD BY MANUAL COUNT 6.61 10*3/uL 2.10 - 8.00 02/28 Specimen Type: BLOOD No comment entered. Ordering Provider: MEAGHAN QUINTEROS Report Released Date/Time: Feb 28, 2024 09:05 AM Reporting Lab: [facility] [address] [facility] [address] Performing Lab: [facility] [address] [facility] [address] [facility] FERRITIN FERRITIN [MASS/VOLU ME] IN SERUM OR PLASMA 227.48 ng/mL 22 - 275 02/28 Specimen Type: SERUM No comment entered. Ordering Provider: MEAGHAN QUINTEROS Report Released Date/Time: Feb 28, 2024 09:05 AM Reporting Lab: [address] [address] Performing Lab: [address] [address] [facility] HGA1C HEMOGLOBIN A1C/HEMOGL OBIN.TOTAL IN BLOOD 7.6 4.0 - 6.0 02/28 H Specimen Type: BLOOD No comment entered. Ordering Provider: MEAGHAN QUINTEROS Report Released Date/Time: Feb 28, 2024 09:05 AM Reporting Lab: [address] [address] Performing Lab: [address] [address] [facility] IRON/TIBC PROFILE IRON BINDING CAPACITY [MASS/VOLU ME] IN SERUM OR PLASMA 251 ug/dL 250 - 450 02/28 Specimen Type: SERUM No comment entered. Ordering Provider: MEAGHAN QUINTEROS Report Released Date/Time: Feb 28, 2024 09:05 AM Reporting Lab: [facility] [address] [place] [address] Performing Lab: [address] [address] [facility] IRON/TIBC PROFILE TRANSFERRI N [MASS/VOLU ME] IN SERUM OR PLASMA 201 mg/dL 163 - 344 02/28 Specimen Type: SERUM No comment entered. Ordering Provider: MEAGHAN QUINTEROS Report Released Date/Time: Feb 28, 2024 09:05 AM Reporting Lab: [facility] [address] [place] [address] Performing Lab: [address] [address] [facility] IRON/TIBC PROFILE IRON SATURATION [MASS FRACTION] IN SERUM OR PLASMA 14 20 - 50 02/28 L Specimen Type: SERUM No comment entered. Ordering Provider: MEAGHAN QUINTEROS Report Released Date/Time: Feb 28, 2024 09:05 AM Reporting Lab: [address] [id number] Performing Lab: [address] [address] [facility] IRON/TIBC PROFILE IRON [MASS/VOLU ME] IN SERUM OR PLASMA 35 ug/dL 65 - 175 02/28 L Specimen Type: SERUM No comment entered. Ordering Provider: MEAGHAN QUINTEROS Report Released Date/Time: Feb 28, 2024 09:05 AM Reporting Lab: [address] [address] Performing Lab: [address] [address] [facility] RENAL PANEL CREATININE [MASS/VOLU ME] IN SERUM OR PLASMA 0.81 mg/dL 0.7 - 1.3 02/28 Specimen Type: PLASMA Comment: No hemolysis noted. Ordering Provider: MEAGHAN QUINTEROS Report Released Date/Time: Feb 28, 2024 09:05 AM Reporting Lab: [address] [address] Performing Lab: [address] [address] [facility] RENAL PANEL UREA NITROGEN [MASS/VOLU ME] IN SERUM OR PLASMA 9.5 mg/dL 9.0 - 25.0 02/28 Specimen Type: PLASMA Comment: No hemolysis noted. Ordering Provider: MEAGHAN QUINTEROS Report Released Date/Time: Feb 28, 2024 09:05 AM Reporting Lab: [facility] [address] [facility] [address] Performing Lab: [facility] [address] [facility] [address] [facility] RENAL PANEL GLUCOSE [MASS/VOLU ME] IN SERUM OR PLASMA 108 mg/dL 72 - 99 02/28 H Specimen Type: PLASMA Comment: No hemolysis noted. Ordering Provider: MEAGHAN QUINTEROS Report Released Date/Time: Feb 28, 2024 09:05 AM Reporting Lab: [facility] [address] [place] [phone] Performing Lab: [address] [address] [facility] RENAL PANEL SODIUM [MOLES/VOL UME] IN SERUM OR PLASMA 135 meq/L 136 - 145 02/28 L Specimen Type: PLASMA Comment: No hemolysis noted. Ordering Provider: MEAGHAN QUINTEROS Report Released Date/Time: Feb 28, 2024 09:05 AM Reporting Lab: [facility] [address] [facility] [address] Performing Lab: [facility] [address] [place] [address] [facility] RENAL PANEL POTASSIUM [MOLES/VOL UME] IN SERUM OR PLASMA 4.4 meq/L 3.5 - 5 02/28 Specimen Type: PLASMA Comment: No hemolysis noted. Ordering Provider: MEAGHAN QUINTEROS Report Released Date/Time: Feb 28, 2024 09:05 AM Reporting Lab: [facility] [address] [place] [address] Performing Lab: [facility] [address] [place] [address] [facility] RENAL PANEL CHLORIDE [MOLES/VOL UME] IN SERUM OR PLASMA 100 meq/L 98 - 107 02/28 Specimen Type: PLASMA Comment: No hemolysis noted. Ordering Provider: MEAGHAN QUINTEROS Report Released Date/Time: Feb 28, 2024 09:05 AM Reporting Lab: [facility] [address] [facility] [address] Performing Lab: [facility] [address] [facility] [address] [facility] RENAL PANEL CARBON DIOXIDE, TOTAL [MOLES/VOL UME] IN SERUM OR PLASMA 24 meq/L 22 - 31 02/28 Specimen Type: PLASMA Comment: No hemolysis noted. Ordering Provider: MEAGHAN QUINTEROS Report Released Date/Time: Feb 28, 2024 09:05 AM Reporting Lab: [facility] [address] [facility] [address] Performing Lab: [facility] [address] [place] [phone] [facility] RENAL PANEL CALCIUM [MASS/VOLU ME] IN SERUM OR PLASMA 9.2 mg/dL 8.4 - 10.4 02/28 Specimen Type: PLASMA Comment: No hemolysis noted. Ordering Provider: MEAGHAN QUINTEROS Report Released Date/Time: Feb 28, 2024 09:05 AM Reporting Lab: [facility] [address] [place] [phone] Performing Lab: [facility] [address] [place] [address] [facility] RENAL PANEL PHOSPHATE [MASS/VOLU ME] IN SERUM OR PLASMA 3.8 mg/dL 2.3 - 4.7 02/28 Specimen Type: PLASMA Comment: No hemolysis noted. Ordering Provider: MEAGHAN QUINTEROS Report Released Date/Time: Feb 28, 2024 09:05 AM Reporting Lab: [facility] [address] [facility] [address] Performing Lab: [facility] [address] [place] [phone] [facility] RENAL PANEL ALBUMIN [MASS/VOLU ME] IN SERUM OR PLASMA 4.1 g/dL 3.4 - 5 02/28 Specimen Type: PLASMA Comment: No hemolysis noted. Ordering Provider: MEAGHAN QUINTEROS Report Released Date/Time: Feb 28, 2024 09:05 AM Reporting Lab: [facility] [address] [facility] [address] Performing Lab: [place] [address] [facility] [address] [facility] RENAL PANEL GLOMERULAR FILTRATION RATE/1.73 SQ M.PREDICTE D [VOLUME RATE/AREA] IN SERUM, PLASMA OR BLOOD BY CREATININE -BASED FORMULA (CKD-EPI 2020) 85.3 60 02/28 Specimen Type: PLASMA Comment: No hemolysis noted. Ordering Provider: MEAGHAN QUINTEROS Report Released Date/Time: Feb 28, 2024 09:05 AM Reporting Lab: [address] [address] Performing Lab: [place] [address] [facility] [address] [facility] VITAMIN D, 25-HYDROX Y 25-HYDROXY VITAMIN D3 [MASS/VOLU ME] IN SERUM OR PLASMA 36.6 ng/mL 30 - 96 02/28 Specimen Type: SERUM No comment entered. Ordering Provider: MEAGHAN QUINTEROS Report Released Date/Time: Feb 28, 2024 09:05 AM Reporting Lab: [place] [address] [facility] [address] Performing Lab: [place] [address] [facility] [address] [facility] MAGNESIUM MAGNESIUM [MASS/VOLU ME] IN SERUM OR PLASMA 2.1 mg/dL 1.6 - 2.6 11/13 Specimen Type: PLASMA Comment: No hemolysis noted. Ordering Provider: NAYLA DUNN Report Released Date/Time: Nov 14, 2023 04:23 AM Reporting Lab: [place] [address] [facility] [address] Performing Lab: [facility] [address] [facility] [address] [facility] PHOSPHORO US PHOSPHATE [MASS/VOLU ME] IN SERUM OR PLASMA 2.9 mg/dL 2.3 - 4.7 11/13 Specimen Type: PLASMA Comment: No hemolysis noted. Ordering Provider: NAYLA DUNN Report Released Date/Time: Nov 14, 2023 04:23 AM Reporting Lab: [place] [address] [facility] [address] Performing Lab: [place] [address] [facility] [address] [facility] TSH W/ REFLEX FT4 (STL) THYROTROPI N [UNITS/VOL UME] IN SERUM OR PLASMA 3.546 u[IU]/mL 0.47 - 5 11/13 Specimen Type: PLASMA No comment entered. Ordering Provider: NAYLA DUNN Report Released Date/Time: Nov 14, 2023 04:23 AM Reporting Lab: [place] [address] [facility] [address] Performing Lab: [address] [address] [facility] Vital Signs Combined list of inpatient and outpatient Vital Signs from Department of Defense and Veterans Affairs, ranging from 12 months to all on record, depending upon the facility. Vital Sign Value Date Comments Source SYSTOLIC BLOOD PRESSURE 136 02/29/2024 13:38:43 [facility] DIASTOLIC BLOOD PRESSURE 68 02/29/2024 13:38:43 [facility] PULSE OXIMETRY 96 02/29/2024 13:38:43 [facility] WEIGHT 198 02/29/2024 13:38:43 [facility] BMI 26 kg/m2 02/29/2024 13:38:43 [facility] PAIN 0 02/29/2024 13:38:43 [facility] TEMPERATURE 97.8 02/29/2024 13:38:43 [facility] PULSE 73 02/29/2024 13:38:43 [facility] Y[facility] RESPIRATION 16 02/29/2024 13:38:43 [facility] SYSTOLIC BLOOD PRESSURE 122 11/23/2023 11:38:57 [facility] DIASTOLIC BLOOD PRESSURE 60 11/23/2023 11:38:57 [facility] PULSE OXIMETRY 97 11/23/2023 11:38:57 Antoine Doyle [facility] WEIGHT 187 11/23/2023 11:38:57 [facility] BMI 25 kg/m2 11/23/2023 11:38:57 [facility] PAIN 0 11/23/2023 11:38:57 [facility] TEMPERATURE 97.3 11/23/2023 11:38:57 [facility] PULSE 66 11/23/2023 11:38:57 [facility] RESPIRATION 16 11/23/2023 11:38:57 [facility] SYSTOLIC BLOOD PRESSURE 121 11/14/2023 06:10:09 [facility] DIASTOLIC BLOOD PRESSURE 70 11/14/2023 06:10:09 [facility] PULSE OXIMETRY 96 11/14/2023 06:10:09 Antoine Doyle [facility] PAIN 0 11/14/2023 06:10:09 [facility] TEMPERATURE 97 11/14/2023 06:10:09 [facility] PULSE 66 11/14/2023 06:10:09 [facility] RESPIRATION 18 11/14/2023 06:10:09 [facility] SYSTOLIC BLOOD PRESSURE 122 11/13/2023 14:07:51 [facility] DIASTOLIC BLOOD PRESSURE 69 11/13/2023 14:07:51 [facility] PULSE OXIMETRY 97 11/13/2023 14:07:51 [facility] TEMPERATURE 98.7 11/13/2023 14:07:51 [facility] PULSE 77 11/13/2023 14:07:51 [facility] RESPIRATION 14 11/13/2023 14:07:51 [facility] SYSTOLIC BLOOD PRESSURE 147 10/18/2023 10:32:02 [facility] DIASTOLIC BLOOD PRESSURE 77 10/18/2023 10:32:02 [facility] PULSE OXIMETRY 96 10/18/2023 10:32:02 [facility] WEIGHT 189.3 10/18/2023 10:32:02 [facility] BMI 25 kg/m2 10/18/2023 10:32:02 [facility] PAIN 3 10/18/2023 10:32:02 [facility] TEMPERATURE 98 10/18/2023 10:32:02 [facility] PULSE 73 10/18/2023 10:32:02 [facility] RESPIRATION 18 10/18/2023 10:32:02 [facility] Encounters Combined list of: 1) Encounters from Department of [facility] facilities going backup to the last 18 months, not all [place] inpatient encounters are included; 2) Encounters from the Department of [place] facilities going backup to 280 months. 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, bi, with actv chrdl neovas MILIAN,FRANKLINIT YA 02/26 [facility] OFFICE O/P EST MOD 30-39 MIN [id number] Diagnos is: ICD-10- CM L57.0 Actinic keratos is LESLY BAPTISTE 03/13 [facility] Outpatient Encounter [id number] 03/14 [facility] OFFICE O/P EST LOW 20-29 MIN [id number] Diagnos is: ICD-10- CM R07.9 Chest pain, unspeci fied KIBLINGER, MEAGHAN 05/03 [facility] EMERGENCY DEPT VISIT MOD MDM [id number] 3 Diagnos is: ICD-10- CM R07.9 Chest pain, unspeci fied MANASA RANDALL 05/03 [facility] Outpatient Encounter [id number] 05/03 [facility] Outpatient Encounter [id number] MANASA RANDALL 05/03 [facility] OFFICE O/P EST MOD 30 MIN [id number] Diagnos is: ICD-10- CM R05.3 Chronic cough KIBLINGER, MEAGHAN 05/18 [facility] OFFICE O/P EST LOW 20 MIN [id number] Diagnos is: ICD-10- CM 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, right eye, with inact chrdl neovas TENORIOKILEY D 05[facility] OFFICE O/P EST LOW 20 MIN [id number] Diagnos is: ICD-10- CM H35.323 2 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, bi, with inact chrdl neovas LILLIAN RUSSELL 07/29 [facility] CPTR OPHTH DX IMG POST SEGMT [id number] Diagnos is: ICD-10- CM 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, right eye, with inact chrdl neovas ANASTASIA TANNER 07/29 [facility] INJECTION EYE DRUG [id number] 4 Diagnos is: ICD-10- CM H35.322 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, left eye, with actv chrdl neovas TENORIOKILEY D 07/29 [facility] N [facility] Outpatient Encounter [id number] 09/09 [facility] Outpatient Encounter [id number] PAIGE MOLINA M 10/08 [facility] Outpatient Encounter [id number] 10/08 [facility] OFFICE O/P EST MOD 30 MIN [id number] 1 Diagnos is: ICD-10- CM H81.399 Other periphe ral vertigo , unspeci fied ear ABDOUL BURGOS 10/11 [facility] Outpatient Encounter [id number] 2 10/11 [facility] INTRM OPH EXAM EST PATIENT [id number] 3 Diagnos is: ICD-10- CM 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, right eye, with inact chrdl neovas KILEY TENORIO 10/14 [facility] CPTR OPHTH DX IMG POST SEGMT [id number] 6 Diagnos is: ICD-10- CM H35.322 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, left eye, with actv chrdl neovas Shahla FIGUEROA M 10/14 [facility] Outpatient Encounter [id number] 10/15 [facility] OFFICE O/P EST LOW 20 MIN [id number] Diagnos is: ICD-10- CM L60.2 Onychog ryphosMILTON Padilla 10/17 [facility] Outpatient Encounter [id number] 10/18 [facility] Outpatient Encounter [id number] 9 11/05 [facility] Outpatient Encounter [id number] 11/06 [facility] Outpatient Encounter [id number] 9 11/12 [facility] Outpatient Encounter [id number] 9 Diagnos is: ICD-10- CM R07.89 Other chest pain OU,JIAFU 11/12 [facility] EMERGENCY DEPT VISIT MOD MDM [id number] 7 Diagnos is: ICD-10- CM R53.1 ZOYA Almeida 11/12 [facility] Outpatient Encounter [id number] 11/12 [facility] Inpatient Encounter [id number] Admit Reason: FAILURE TO THRIVE TWOA,MED 11/12 [facility] Inpatient Encounter [id number] PRACHI CASTRO 11/12 [facility] Inpatient Encounter [id number] PRACHI CASTRO 11/12 [facility] Inpatient Encounter [id number] PRACHI CASTRO 11/13 [facility] Inpatient Encounter [id number] PRACHI CASTRO 11/13 [facility] Inpatient Encounter [id number] ABDOUL BURGOS 11/13 [facility] Inpatient Encounter [id number] Kevin PHAM 11/13 [facility] SELF CARE MNGMENT TRAINING [id number] 4 Diagnos is: ICD-10- CM M62.81 Muscle weaknes s (genera lized) ALEIDA TOVAR 11/13 [facility] OT EVAL LOW COMPLEX 30 MIN [id number] 8 Diagnos is: ICD-10- CM R27.0 Ataxia, unspeci fied AARON SAUCEDO 11/13 [facility] Inpatient Encounter [id number]. 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 VIRGIE OLSON 11/13 [facility] Inpatient Encounter [id number] 3 WALKER JC 11/13 [facility] Inpatient Encounter [id number] 2 WALKER JC 11/13 [facility] 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 [id number] [id number] 5 Diagnos is: ICD-10- CM 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.81 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 RIRI Mckinney 11/13 [facility] Inpatient Encounter [id number] 2 WALKER JC 11/13 [facility] Outpatient Encounter [id number] 11/15 [facility] Outpatient Encounter [id number] MEAGHAN QUINTEROS 11/18 [facility] CASE MANAGEMENT [id number] 3 Diagnos is: ICD-10- CM R07.9 Chest pain, unspeci fied EREN DAWSON MMY E 11/20 [facility] Outpatient Encounter [id number] 9 11/22 [facility] OFF/OP CNSLTJ NEW/EST MOD 40 [id number] [id number] 9 Diagnos is: ICD-10- CM 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 JUAN CARLOS RICHARDS Lian 11/22 [facility] Outpatient Encounter [id number] 11/22 [facility] OFFICE O/P EST MOD 30 MIN [id number] 5 Diagnos is: ICD-10- CM H81.13 Benign paroxys mal vertigo , bilater al MEAGHAN QUINTEROS 11/22 [facility] Outpatient Encounter [id number] 11/22 [facility] HC PRO PHONE CALL 21-30 MIN [id number] Diagnos is: ICD-10- CM Z71.0 Prsn encntr hlth serv to consult on behalf of another person HELEN PARKER 11/27 [facility] Outpatient Encounter [id number] 4 12/11 [facility] Outpatient Encounter [id number] 3 12/18 [facility] CPTR OPHTH DX IMG POST SEGMT [id number] 1 Diagnos is: ICD-10- CM 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, right eye, with inact chrdl neovas ANASTASIA TANNER 12/23 [facility] INTRM OPH EXAM EST PATIENT [id number] 9 Diagnos is: ICD-10- CM H35.321 0 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, right eye, stage unspeci fied DEBBY DOMINGO 12/23 [facility] Outpatient Encounter [id number] 12/30 [facility] OFFICE O/P EST MOD 30 MIN [id number] 1 Diagnos is: ICD-10- CM 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 , left knee KIBLINGARIES BOLTONA 02/28 [facility] OFFICE O/P EST LOW 20 MIN [id number] Diagnos is: ICD-10- CM L57.0 Actinic keratos is LESLY BAPTISTE 03/03 [facility] INTRM OPH EXAM EST PATIENT [id number] Diagnos is: ICD-10- CM H35.322 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, left eye, with actv chrdl neovas Lian VEANS RJUN G 03/10 [facility] CPTR OPHTH DX IMG POST SEGMT [id number] 1 Diagnos is: ICD-10- CM H35.321 0 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, right eye, stage unspeci fiANASTASIA Disla 03/10 [facility] Outpatient Encounter [id number] 03/10 [facility] Outpatient Encounter [id number] 03/13 [facility] Outpatient Encounter [id number] 3 03/21 [facility] Outpatient Encounter [id number] 04/16 [facility] Outpatient Encounter [id number]. [id number] 7 04/21 [facility] Outpatient Encounter [id number]. [id number] 1 04/29 [facility] Outpatient Encounter [id number]. [id number] OTTO, SUKI Almanzar 04/29 [facility] Outpatient Encounter [id number]. [id number] MEAGHAN QUINTEROS 05/10 [facility] INTRM OPH EXAM EST PATIENT [id number]. [id number] 9 Diagnos is: ICD-10- CM H35.313 4 Nexdtve age-rel mclr degn, bi, adv atrpc with subfove al invl Shahla FAULKNERIA 05/15 [facility] INTRM OPH EXAM EST PATIENT [id number] Diagnos is: ICD-10- CM H35.322 0 Exudati ve age-rel ated mclr degn, left eye, stage unspeci DBEBY Hall 05/26 [facility] CPTRZ OPH DX IMG PST SGM RTA [id number]. 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, low vision left eye categor y 1 THEO LUIS L 06/05 [facility] Outpatient Encounter [id number] 1 06/17 [facility] Outpatient Encounter [id number] 1 EREN DAWSON MMJackie E 06/20 [facility] Outpatient Encounter [id number] 06/20 [facility] Outpatient Encounter [id number] LUPE DE RET 06/20 [facility] Outpatient Encounter [id number] 06/20 [facility] SYNCH AUDIO-ONLY EST LOW 20 [id number] [id number] 3 Diagnos is: ICD-10- CM N30.00 Acute cystiti s without hematur ia DEQUAN BLAKE NDA S 06/20 [facility] Outpatient Encounter [id number] 06/21 [facility] Outpatient Encounter [id number] 06/23 [facility] Outpatient Encounter [id number] 06/23 [facility] Outpatient Encounter [id number] 06/23 [facility] Social History Combined list of available smoking, tobacco, and other social history from [facility] of Defense and [facility] facilities. Social History Type Response Date Comment [facility] e Tobacco smoking status NHIS [facility]-TOBACCO NEVER USED 11/23/2023 [facility] History of tobacco use [place]-TOBACCO FORMER USER 11/23/2023 [facility] History of tobacco use ORYX ADMIT TOBACCO SCREEN NO 11/14/2023 [facility] History of tobacco use [place]-TOBACCO NEVER USED 08/04/2022 [facility] of [facility] 03/11/2021 [facility] History of tobacco use VA-TOBACCO FORMER USER 04/19/2018 [facility] History of tobacco use QUIT TOBACCO >7 YEARS AGO 07/24/2017 [facility] History of tobacco use QUIT TOBACCO >7 YEARS AGO 04/16/2017 [facility] History of tobacco use LIFETIME NON-USER OF TOBACCO 02/01/2017 [facility] History of tobacco use QUIT TOBACCO >7 YEARS AGO 11/15/2016 [facility] History of tobacco use QUIT TOBACCO >7 YEARS AGO 09/11/2016 [facility] History of tobacco use QUIT TOBACCO >7 YEARS AGO 12/09/2015 [facility] History of tobacco use CURRENT TOBACCO USER 01/05/2015 [facility] History of tobacco use CURRENT TOBACCO USER 03/18/2014 [facility] History of tobacco use CURRENT TOBACCO USER 11/04/2013 [facility] History of tobacco use QUIT TOBACCO >7 YEARS AGO 11/26/2012 [facility] History of tobacco use QUIT TOBACCO >7 YEARS AGO 05/03/2009 [facility] History of tobacco use CURRENT TOBACCO USER 07/06/2008 [facility] History of tobacco use QUIT TOBACCO >12 MO and <7 YRS AGO 07/25/2007 [facility] History of tobacco use TOBACCO [facility] 06/07/2006 [facility] History of tobacco use CURRENT TOBACCO USER 08/25/2005 [facility] History of tobacco use CURRENT NON-TOBACCO USER-HX OF USE 10/25/2004 [facility] History of tobacco use CURRENT NON-TOBACCO USER-HX OF USE 08/24/2003 [facility] History of tobacco use CURRENT NON-TOBACCO USER-HX OF USE 08/05/2002 QUIT [id number] [facility] History of tobacco use CURRENT NON-TOBACCO USER-HX OF USE 04/15/2001 quit in 1980 [facility] Plan of Care List of future care activities from Department of [facility] facilities. Additional future care activities may be listed in the Assessment and Plan section. Date/Time Care Activity Care Activity Detail Facili ty 06/24/2024 AMBULATORY - SURGERY [facility] 07/02/2024 AMBULATORY - MEDICINE [facility] 08[facility]18/2024 AMBULATORY - SURGERY [facility] 12/10/2024 AMBULATORY - REHAB MEDICINE [facility] 12/10/2024 AMBULATORY - REHAB MEDICINE AM[facility] 06/23/2024 Consult Order PT OUTPT PETER navarro Alum Operator's Choice [facility] Advance Directives List of completed, amended, or rescinded Advance Directives on record at Department of [facility] facilities. An actual copy of the Directive is not included. Date Advance Directive Provider Source 10/19/2023 ADVANCE DIRECTIVE WANG MURILLO [facility] 12/12/2022 RESCINDED ADVANCE DIRECTIVE JITENDRA MEADOWS [facility] 09/12/2016 ADVANCE DIRECTIVE DISCUSSION TAMIKO MEADOWS [facility]
--- OUTSIDE RECORDS SUMMARY | 2024-06-23 21:31 | XMS_ITS | Encounter Summary ---
Author Name [facility] [place] [facility] [place] Address [address] [place] [address] Care Team Providers Care Slubber Frame Changer Name Role Phone MEAGHAN QUINTEROS Primary Care [...] PART A Aug 12, 2001 PART A [id number] [phone] JESUS ABRAHAM PATIENT MEDICARE (WNR) MEDICARE (M) PART B Aug 12, 2001 PART B [id number] JESUS ABRAHAM PATIENT Selected Encounter This section includes the information on record at [place] for the Encounter. 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 This section includes future appointments and future orders which are active, pending or scheduled. Future Appointments This section includes appointments that were scheduled to occur 6 months from the date of the Encounter, up to a maximum of 20 appointments. The data comes from all [facility]. Appointment Date/Time Appointment Type Appointme nt Facility Name May 26, 2024 12:30 PM AMBULATORY - SURGERY [facility] Jun 05, 2024 02:00 PM AMBULATORY - [facility]AB [facility] Jun 05, 2024 03:00 PM AMBULATORY - REHAB MEDICIN [facility] Jun 24, 2024 11:30 AM AMBULATORY - SURGERY [facility] Jul 02, 2024 02:30 PM AMBULATORY - MEDICINE [facility] Aug 18, 2024 12:15 PM AMBULATORY - SURGERY [facility] Active, Pending, and Scheduled [...] theEncounter. The data comes from all [facility]. 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 Encounter Notes: All associated encounter notes This section contains the clinical notes associated to the Encounter. Date/Time Encounter Note(s) Provider Source May 15, 2024 11:09 AM OPTOMETRY NOTE: LOCAL TITLE: OPTOMETRY NOTE STANDARD TITLE: OPTOMETRY NOTE DATE OF NOTE: MAY 15, 2024@11:09 ENTRY DATE: MAY 15, 2024@11:09:37 AUTHOR: NHAN FAULKNER EXP COSIGNER: URGENCY: STATUS: COMPLETED Last seen 03/10/24 - retina 07/2023 - optom Reason for visit: IOP check/mrx CC: 1. 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 Family OcHX: (-) blindness (-) glaucoma (-) AMD (-) RD Cardiovascular ROS: no change from problem & medication lists CPRS Problem list, medications and allergies reviewed: CPRS Serology for Diabetes GLUCOSE 108 H mg/dL 02/29/2024 14:17 HGA1C 7.6 H % 02/29/2024 14:17 Cardiovascular BP: 136/68 (02/29/2024 13:38) Pulse: 73 (02/29/2024 13:38) Neuro: Orientation: Normal Psych: Mood/Affect: Normal Depression/suicide ideation: NO VISUAL ACUITY With correction Distance Visual Acuity OD CF at 4 ft OS 20/ Pupils PERRL OU (-)APD Confrontation: FTFC OU Extra-Ocular Muscles Full OU (-)pain (-)diplopia Externals/adnexa: Unremarkable OU Refraction 08/07/22 OD SPHERE: +1.50 CYL: -2.00 AXIS: 100 OS SPHERE: -0.25 CLY: -2.75 AXIS: 90 ADD: +2.75 *BIFOCAL AutoRefraction 07/30/23 OD: +1.00 -2.00 x100 OS: +0.50 -3.00 x101 Refraction: 07/30/23 Curriculum Manager OD: +1.00 -2.00 x100 20/400 OS: +0.50 -3.00 x095 20/40+ Add: +2.75 Trial frame Refraction: 05/15/24 OD +1.00-2.53h938 CF @ 4 ft OS +1.50-2.21s311 20/70 pushing Add: + 3.00 FT clear NVO SLIT LAMP EXAMINATION Lids/Lashes/Lacrimal No blepharitis OU Conjunctiva/Sclera White/quiet OU Cornea Clear OU Ant Chamber Deep and quiet OU Iris Normal, (-)NVI OU Lens PCIOL OU, OD linear PCO, OS clear (undilated) Intraocular Pressures (Goldmann) 1 gtt fluress Date: O.D. O.S. Time Meds 08/07/22 21 21 1326 none 07/30/23 19 20 0135 none 05/15/24 19 19 1137 none RETINAL EVALUATION unDilated retinal exam Optic Nerve OD: 0.2 CDR Flat, pink, distinct (-)NVD OS: 0.2 CDR Flat, pink, distinct (-)NVD Vessels: 2/3 OU Macula: OD: GA OS: GA Last DFE 02/2024; next with retina 05/26/24 Assessment/Plan 05/15/24 1. 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 Recommend re-establishing care with clinic to assist in ADLs as granddaughter [...] f/u with Retina as directed, next 05/26/24 Ed. pt on all findings RTC next available LV clinic for eval RTC retina as scheduled for AMD (05/26/24) /manuel/ NHAN FAULKNER, OD Staff Physician, Optometry Signed: 05/19/2024 10:57 NHAN FAULKNER [facility]
[2024-06-23 21:40] VITALS: O2SAT 98
[2024-06-23 21:50] LABS: Add Urine Microscopic? YES; Appearance Urine Clear (Clear); Bacteria Urine None Seen /hpf; Bilirubin Urine Negative (Negative); Blood Urine Negative (Negative); Color Urine Yellow (Yellow); Glucose Urine UA 2+ mg/dL (Negative); Ketones Urine Negative (Negative); Leukocyte Esterase Ur Negative LEU/UL (Negative); Nitrate Urine Negative (Negative); Non Pathogenic Casts 0-2; Protein Urine 1+ mg/dL (Negative); RBC Urine 0-2 /hpf (0-2); Specific Grav Ur 1.012 (1.001-1.035); Squamous Epithelial Cell Urine None Seen /hpf (Few); WBC Urine 0-5 /hpf (0-3); pH Urine 6.5 (5.0-9.0)
[2024-06-23 22:03] LABS: Amphetamine Screen Urine Negative (Negative); Barbiturate Screen Urine Negative (Negative); Benzodiazepines Screen Urine Negative (Negative); Cannabinoid Screen Urine Negative (Negative); Cocaine Screen Urine Negative (Negative); Methadone Screen Urine Negative (Negative); Opiate Screen Urine Negative (Negative); Phencyclidine Screen Urine Negative (Negative)
[2024-06-23 22:03] LABS: Acetaminophen < 10 ug/mL (10-30); Ammonia < 9 umol/L (9-30); Ethanol < 10 mg/dL (<10); Salicylate < 1.0 mg/dL (2-20)
--- NOTE | 2024-06-23 22:07 | PC.NURSE ---
Patient and family state that patient has no nausea at moment and declines Zofran 4mg IVP.
[2024-06-23 22:35] LABS: NT Pro B Type Natriuretic Pept 220 pg/mL (19.9-100)
[2024-06-23 22:48] LABS: Influenza A QL RT-PCR Negative (Negative); Influenza B QL RT-PCR Negative (Negative); RSV RNA, RT-PCR Negative (Negative); SARS-CoV-2 RNA PCR Negative (Negative)
[2024-06-23 23:01] VITALS: BP 158/64; PULSE 66; RESP 16; TEMP 36.4; O2SAT 97
[2024-06-23 23:01] LABS: Hemoglobin A1C 7.6 % (<5.7)
[2024-06-23 23:03] LABS: Creatine Kinase 259 U/L (55-170)
[2024-06-24 01:00] VITALS: BP 161/71; PULSE 65; RESP 17; TEMP 36.4; O2SAT 100
--- NOTE | 2024-06-24 01:43 | PM.IMHP ---
H&P: HPI History of Present Illness Date/Time: 06/24/24 01:43 Chief Complaint: Confusion Narrative: 88-year-old male presents to [place] ER for altered mental status. [facility]. He cannot provide quality history. Chart review and reports from ER staff obtained. Reportedly his confusion has been going on for about a week. He has never been diagnosed or been observed to have dementia. Family does report he was diagnosed with UTI and placed on Macrobid about 2 days prior to admission. He also reported chest pain intermittently. ER evaluation on the day of admission 06/24/2024 demonstrates vitals within normal limits. Workup for confusion widely negative. Found to have elevated HbA1c. Review of Systems Review of Systems: All systems reviewed & are unremarkable except as noted in HPI and below (HPI) ROS unobtainable: Yes unobtainable due to medical condition and unobtainable due to mental status PMFSH Past Medical History Medical History Bladder cancer Colon cancer Hypertension Surgical History Surgical History History of knee replacement Social History Social History Smoking status: Never smoker Substance use: never Living arrangements: with family Meds Home Medications and Allergies Home Medications ?Medication ?Instructions ?Recorded ?Confirmed ?Type albuterol sulfate 90 mcg/actuation 2 puff inhalation Q4-6H PRN 09/02/22 Rx aerosol inhaler shortness of breath or wheezing 30 days #8.5 grams azithromycin 250 mg tablet See Rx Instructions PO .COMPLEX #6 09/02/22 Rx tabs prednisone 20 mg tablet 40 mg (2 x 20 mg) PO DAILY 5 days 09/02/22 Rx #10 tabs amoxicillin 875 mg-potassium 1 tablet PO Q12H 7 days #14 tabs 05/10/24 Rx clavulanate 125 mg tablet azithromycin 250 mg tablet See Rx Instructions PO .COMPLEX #6 05/10/24 Rx tabs Allergies Allergy/AdvReac Type Severity Reaction Status Date / Time No Known Allergies Allergy Verified 06/23/24 15:48 Vital Signs Vital Signs - 24 hr 06/23/24 15:41 06/23/24 21:17 06/23/24 21:18 Temperature 96.8 F L Pulse Rate 70 75 Respiratory Rate 18 Blood Pressure 180/91 H Pulse Oximetry 98 98 Oxygen Delivery Room Air Room Air 06/23/24 21:19 06/23/24 21:40 06/23/24 23:01 Temperature 98.1 F 97.6 F Pulse Rate 71 66 Respiratory Rate 16 16 Blood Pressure 165/77 H 158/64 H Pulse Oximetry 98 98 97 Oxygen Delivery Room Air Exam Const: General: comfortable and no acute distress Other: Pleasantly confused. Eyes: Pupils: Equal, round and reactive pupils present Neck: Neck: supple Resp: Effort & Inspection: normal respiratory effort Other: Scant dry crackles at bibasilar lung morales Cardio: Rate: regular rate Rhythm: regular rhythm GI: GI Palp: Yes Soft to palpation and No Tenderness to palpation present (GI) Extrem: General: no edema H&P: Results Labs Labs: Short CBC 06/23/24 Range/Units 16:01 WBC 9.4 (4.5-10.0) K/mm3 Hgb 12.9 L (14.0-18.0) g/dL Hct 39.4 L (42.0-52.0) % Plt Count 284 (150-375) k/mm3 BMP 06/23/24 16:01 Sodium 134 L Potassium 4.1 Chloride 97 L Carbon Dioxide 28 BUN 9 Creatinine 0.63 L Glucose 168 H Calcium 8.9 Cardiac Enzymes 06/23/24 06/23/24 06/23/24 Range/Units 16:01 20:44 21:48 Total Creatine Kinase 259 H (55-170) U/L Troponin I < 0.012 < 0.012 (0.000-0.034) ng/mL Liver Function 06/23/24 Range/Units 16:01 Total Bilirubin 0.5 (0.2-1.3) mg/dL AST 25 (17-59) U/L ALT 19 (6-50) U/L Alkaline Phosphatase 98 (38-126) U/L Albumin 4.1 (3.5-5.1) g/dL Urine 06/23/24 Range/Units 21:38 Urine Color Yellow (Yellow) Urine Appearance Clear (Clear) Urine pH 6.5 (5.0-9.0) Ur Specific [place] 1.012 (1.001-1.035) Urine Protein 1+ H (Negative) mg/dL Urine Glucose (UA) 2+ H (Negative) mg/dL Assessment and Plan Assessment and plan (1) Diabetes: Code(s): E11.9 - Type 2 diabetes mellitus without complications Status: Acute (2) Encephalopathy: Code(s): G93.40 - Encephalopathy, unspecified Status: Acute (3) Chest pain in adult: Code(s): R07.9 - Chest pain, unspecified Status: Acute Plan 88-year-old male presents to [place] ER for altered mental status. [facility]. He cannot provide quality history. Chart review and reports from ER staff obtained. Reportedly his confusion has been going on for about a week. He has never been diagnosed or been observed to have dementia. Family does report he was diagnosed with UTI and placed on Macrobid about 2 days prior to admission. He also reported chest pain intermittently. ER evaluation on the day of admission 06/24/2024 demonstrates vitals within normal limits. Workup for confusion widely negative. Found to have elevated HbA1c. ----- Cause of encephalopathy unknown. Patient has no evidence of sepsis or infectious etiology. Urinalysis unremarkable. He has distracted speech and very poor memory recall. Does not appear to be ill-appearing or in any distress whatsoever. Suspect the patient has sundowning due to dementia. Will check a vitamin B12 in addition to the workup completed in the ER. CTA head and neck negative, chest x-ray negative. Ammonia negative. U tox negative. Salicylates and acetaminophen negative. Will order MRI brain. Consultation for Neurology placed in the ER. Patient does not complain of chest pain at the moment. Troponin negative an EKG without acute ischemia. He is DNR and at this time workup for encephalopathy is priority. HbA1c 7.6% checked in the ER. At this time will not initiate any pharmacological management. Attempting to reconcile medication list. DNR. Fall precaution Ambulate with assistance Saline lock IV MRI and Neurology consultation Hospitalist [facility] Advance Care Plan I have confirmed that the patient's Advanced Care Plan is present, code status is documented, or surrogate decision maker is listed in patient medical record.: Yes Medication Reconciliation I have utilized all available resources to obtain, update and review the patients current medications (includes all prescriptions, OTC, herbals, cannabis, and nutritional supplements).: Yes
[2024-06-24 02:26] VITALS: BP 141/63; PULSE 72; RESP 20; TEMP 36.1; O2SAT 97; BMI 24.6
[2024-06-24 06:00] VITALS: BP 150/72; PULSE 88; RESP 18; TEMP 36.6; O2SAT 96
[2024-06-24 07:40] LABS: Basophils Absolute Auto 0.1 K/mm3 (0.0-0.1); Basophils Percent Auto 0.8 % (0.2-1.2); Eosinophils Absolute Auto 0.3 K/mm3 (0-0.3); Eosinophils Percent Auto 3.2 % (0-4.4); Hematocrit 38.2 % (42.0-52.0); Hemoglobin 12.5 g/dL (14.0-18.0); Immature Granulocyte Absolute 0.04 K/mm3 (0.00-0.031); Immature Granulocyte Percent A 0.4 % (0-0.5); Lymphocytes Absolute Auto 1.72 K/mm3 (0.9-3.2); Lymphocytes Percent Auto 16.4 % (18.3-44.2); Mean Corpuscular HGB Conc 32.7 g/dl (32-36); Mean Corpuscular Hemoglobin 29.6 pg (26-34); Mean Corpuscular Volume 90.5 fl (80-100); Mean Platelet Volume 9.6 fl (7.4-10.4); Monocytes Absolute Auto 1.3 K/mm3 (0.1-0.6); Monocytes Percent Auto 12.8 % (2.6-8.5); Neutrophils Percent Auto 66.4 % (45.5-73.1); Platelet Count Result 261 k/mm3 (150-375); Red Blood Count 4.22 M/mm3 (4.6-6.20); Red Cell Distribution Width 14.5 % (11.5-14.5); White Blood Count 10.5 K/mm3 (4.5-10.0)
[2024-06-24 08:07] LABS: Anion Gap 8 mmol/L (4-12); Blood Urea Nitrogen 7 mg/dL (9-20); Calcium 8.9 mg/dL (8.4-10.2); Carbon Dioxide 29 mmol/L (22-30); Chloride 100 mmol/L (98-107); Estimated CRCL calculation 80 ml/min; Estimated Glomerular Filt Rate > 60; Glucose 132 mg/dL (65-110); Potassium 4.2 mmol/L (3.4-5.0); Sodium 137 mmol/L (137-145)
[2024-06-24 08:32] LABS: Glucose Point of Care 125 mg/dl (65-105)
[2024-06-24 11:49] LABS: Glucose Point of Care 125 mg/dl (65-105)
--- NOTE | 2024-06-24 12:33 | P.PNIM_ITS ---
Progress Note: A&P Assessment and Plan (1) Acute spontaneous idiopathic subarachnoid intracranial hemorrhage: Code(s): I60.9 - Nontraumatic subarachnoid hemorrhage, unspecified Status: Acute Assessment and Plan: * Patient had MRI of head done that showed: IMPRESSION: 1. 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 2. Acute subarachnoid hemorrhage in a sulcus in right frontal lobe. 3. 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 4. Extensive nonspecific cerebral white matter disease and pontine disease, which likely represents chronic small vessel ischemic disease. -Spoke with Karla Savage and patient has been accepted high priority to Dr. Rodrigues. Awaiting call back with bed. -Dr. Cuello aware of transfer to ICU for Nicardipine drip and neuro checks q 2 hours. -Spoke with Dr. Kendrick at [facility]. Patient accepted but unknown when bed available. -Spoke with Kellen LANDON at the [facility] on [address] [phone]. Fax number [phone] to send reports. They will review and get back with us. -Karla called back and they have a bed for patient. Patient to be transferred by [facility]. Anai in ICU updated. Family updated. (2) Acute CVA (cerebrovascular accident): Code(s): I63.9 - Cerebral infarction, unspecified Status: Acute Assessment and Plan: * Patient had MRI of head done that showed: IMPRESSION: 1. 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 2. Acute subarachnoid hemorrhage in a sulcus in right frontal lobe. 3. 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 4. Extensive nonspecific cerebral white matter disease and pontine disease, which likely represents chronic small vessel ischemic disease. -Spoke with Karla Savage and patient has been accepted high priority to Dr. Rodrigues. Awaiting call back with bed. -Dr. Cuello aware of transfer to ICU for Nicardipine drip and neuro checks q 2 hours. -Spoke with Dr. Kendrick at [facility]. Patient accepted but unknown when bed available. -Spoke with Kellen ALNDON at the [facility] on [address] [phone]. Fax number [phone] to send reports. They will review and get back with us. -Karla called back and they have a bed for patient. Patient to be transferred by [facility]. Anai in ICU updated. Family updated. Subjective Date/time seen: 06/24/24 12:33 Interval history: Patient sitting up in chair with family at bedside when rounding patient wanting to go home but understands that he needed MRI done. Patient denies chest pain, palpitations, headache, dizziness, nausea, or vomiting. Patient had MRI of head done that showed: IMPRESSION: 1. 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 2. Acute subarachnoid hemorrhage in a sulcus in right frontal lobe. 3. 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 4. Extensive nonspecific cerebral white matter disease and pontine disease, which likely represents chronic small vessel ischemic disease. -Spoke with Karla Savage and patient has been accepted high priority to Dr. Rodrigues. Awaiting call back with bed. -Dr. Cuello aware of transfer to ICU for Nicardipine drip and neuro checks q 2 hours. -Spoke with Dr. Kendrick at [facility]. Patient accepted but unknown when bed available. -Spoke with Kellen LANDON at the [facility] [address] [phone]. Fax number [phone] to send reports. They will review and get back with us. -Karla called back and they have a bed for patient. Patient to be transferred by [facility]. Anai in ICU updated. Family updated. Review of Systems Review of Systems: All systems reviewed & are unremarkable except as noted in HPI and below Exam Const: General: comfortable and no acute distress HENMT: Other: Smile equal. Eyes: Pupils: Equal, round and reactive pupils present Resp: Effort & Inspection: normal respiratory effort Auscultation: clear to auscultation bilaterally Cardio: Rate: regular rate Rhythm: regular rhythm GI: GI Palp: Yes Soft to palpation Auscultation: normal bowel sounds Neuro: Speech: normal speech Other: Equal tar heater. Extrem: General: no pedal edema Psych: Affect: normal affect Other: oriented to self. Objective Data Vital Signs Vital Signs: Vital Signs - 24 hr 06/23/24 15:41 06/23/24 21:17 06/23/24 21:18 Temperature 96.8 F L Pulse Rate 70 75 Respiratory Rate 18 Blood Pressure 180/91 H Pulse Oximetry 98 98 Oxygen Delivery Room Air Room Air 06/23/24 21:19 06/23/24 21:40 06/23/24 23:01 Temperature 98.1 F 97.6 F Pulse Rate 71 66 Respiratory Rate 16 16 Blood Pressure 165/77 H 158/64 H Pulse Oximetry 98 98 97 Oxygen Delivery Room Air 06/24/24 01:00 06/24/24 02:26 06/24/24 03:52 Temperature 97.6 F 97 F L Pulse Rate 65 72 Respiratory Rate 17 20 Blood Pressure 161/71 H 141/63 H Pulse Oximetry 100 97 Oxygen Delivery Room Air 06/24/24 06:00 06/24/24 08:00 Temperature 98 F Pulse Rate 88 Respiratory Rate 18 Blood Pressure 150/72 H Pulse Oximetry 96 Oxygen Delivery Room Air Intake/Output Intake/Output: Intake & Output 06/21/24 06/22/24 06/23/24 06/24/24 23:59 23:59 23:59 23:59 Intake Total 360 Balance 360 Meds/Results Medications: Active Medications Generic Name Dose Route Start Last Admin Trade Name Freq PRN Reason Stop Dose Admin Acetaminophen 650 mg 06/24/24 01:28 Acetaminophen 325 Mg Tablet PO Q4H PRN Mild Pain (1-3) or Fever Dextrose 12.5 gm 06/24/24 01:28 Dextrose 50% 25 Gm/50 Ml Syringe IV PUSH PRN PRN Hypoglycemia Protocol Glucagon 1 mg 06/24/24 01:28 Glucagon For Inj 1 Mg Vial IM PRN PRN Hypoglycemia Protocol Glucose 15 gm 06/24/24 01:28 Glucose Oral Gel 15 Gm Of Glucse In 37.5 Gm Tube PO PRN PRN Hypoglycemia Protocol Dextrose 1,000 mls @ 100 mls/hr 06/24/24 01:28 Dextrose 5% 1,000 Ml IVPB PRN PRN Hypoglycemia Protocol Ondansetron HCl 4 mg 06/24/24 01:28 Ondansetron Inj 4 Mg/2 Ml Vial IV PUSH Q4H PRN Nausea Radiology Results: ITS Impressions Chest X-Ray 06/23/24 16:12 IMPRESSION: 1. Stable mild chronic lung disease. Head CT 06/23/24 16:17 IMPRESSION: 1. 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 2. Extensive nonspecific cerebral white matter disease, which likely represents chronic small vessel ischemic disease. Abdomen/Pelvis CT 06/23/24 22:40 IMPRESSION: No acute intra-abdominal findings. Innumerable nonacute findings, as detailed above Head/Neck CTA 06/24/24 00:01 IMPRESSION: 1. Normal CTA head and neck. Percent stenosis per NASCET criteria is 0% Labs Labs: Laboratory Results - last 24 hr 06/23/24 06/23/24 06/23/24 16:01 20:44 21:38 WBC 9.4 RBC 4.30 L Hgb 12.9 L Hct 39.4 L MCV 91.6 MCH 30.0 MCHC 32.7 RDW 14.5 Plt Count 284 MPV 9.2 Immature Gran % (Auto) 0.4 Neut % (Auto) 58.6 Lymph % (Auto) 23.6 Cook % (Auto) 13.1 H Eos % (Auto) 3.7 Baso % (Auto) 0.6 Lymph # (Auto) 2.21 Cook # (Auto) 1.2 H Eos # (Auto) 0.4 H Baso # (Auto) 0.1 Abs Immat Gran (auto) 0.04 H Absolute Neuts (auto) 5.5 Absolute Nucleated RBC 0.000 Nucleated RBC % 0.0 PT 13.6 INR 1.0 APTT 30.5 Sodium 134 L Potassium 4.1 Chloride 97 L Carbon Dioxide 28 Anion Gap 9 BUN 9 Creatinine 0.63 L Estim Creat Clear Calc 84 Estimated GFR > 60 Glucose 168 H POC Capillary Glucose Hemoglobin A1c 7.6 H Calcium 8.9 Magnesium Total Bilirubin 0.5 AST 25 ALT 19 Alkaline Phosphatase 98 Ammonia Total Creatine Kinase Troponin I < 0.012 < 0.012 NT-Pro-B Natriuret Pep Total Protein 7.0 Albumin 4.1 Lipase 123 Vitamin B12 TSH Urine Color Yellow Urine Appearance Clear Urine pH 6.5 Ur Specific [place] 1.012 Urine Protein 1+ H Urine Glucose (UA) 2+ H Urine Ketones Negative Ur Blood (Man) Negative Urine Nitrate Negative Urine Bilirubin Negative Urine Urobilinogen 1.0 Leukocyte Esterase Rfl Negative Urine RBC 0-2 Urine WBC 0-5 Ur Squamous Epith Cells None seen Urine Bacteria None seen Urine Casts 0-2 Salicylates Urine Opiates Screen Negative Urine Methadone Screen Negative Acetaminophen Ur Barbiturates Screen Negative Ur Phencyclidine Scrn Negative Ur Amphetamine Screen Negative U Benzodiazepines Scrn Negative Urine Cocaine Screen Negative U Cannabinoids Screen Negative Ethyl Alcohol Influenza A (RT-PCR) Influenza B (RT-PCR) RSV (RT-PCR) SARS-CoV-2 RNA (RT-PCR) 06/23/24 06/23/24 06/24/24 21:48 22:05 07:26 WBC 10.5 H RBC 4.22 L Hgb 12.5 L Hct 38.2 L MCV 90.5 MCH 29.6 MCHC 32.7 RDW 14.5 Plt Count 261 MPV 9.6 Immature Gran % (Auto) 0.4 Neut % (Auto) 66.4 Lymph % (Auto) 16.4 L [place] % (Auto) 12.8 H Eos % (Auto) 3.2 Baso % (Auto) 0.8 Lymph # (Auto) 1.72 [place] # (Auto) 1.3 H Eos # (Auto) 0.3 Baso # (Auto) 0.1 Abs Immat Gran (auto) 0.04 H Absolute Neuts (auto) 7.0 H Absolute Nucleated RBC 0.000 Nucleated RBC % 0.0 PT INR APTT Sodium 137 Potassium 4.2 Chloride 100 Carbon Dioxide 29 Anion Gap 8 BUN 7 L Creatinine 0.61 L Estim Creat Clear Calc 80 Estimated GFR > 60 Glucose 132 H POC Capillary Glucose Hemoglobin A1c Calcium 8.9 Magnesium 2.0 Total Bilirubin AST ALT Alkaline Phosphatase Ammonia < 9 L Total Creatine Kinase 259 H Troponin I NT-Pro-B Natriuret Pep 220 H Total Protein Albumin Lipase Vitamin B12 347.0 TSH 4.110 Urine Color Urine Appearance Urine pH Ur Specific [place] Urine Protein Urine Glucose (UA) Urine Ketones Ur Blood (Man) Urine Nitrate Urine Bilirubin Urine Urobilinogen Leukocyte Esterase Rfl Urine RBC Urine WBC Ur Squamous Epith Cells Urine Bacteria Urine Casts Salicylates < 1.0 L Urine Opiates Screen Urine Methadone Screen Acetaminophen < 10 L Ur Barbiturates Screen Ur Phencyclidine Scrn Ur Amphetamine Screen U Benzodiazepines Scrn Urine Cocaine Screen U Cannabinoids Screen Ethyl Alcohol < 10 Influenza A (RT-PCR) Negative Influenza B (RT-PCR) Negative RSV (RT-PCR) Negative SARS-CoV-2 RNA (RT-PCR) Negative 06/24/24 06/24/24 08:15 11:45 WBC RBC Hgb Hct MCV MCH MCHC RDW Plt Count MPV Immature Gran % (Auto) Neut % (Auto) Lymph % (Auto) [place] % (Auto) Eos % (Auto) Baso % (Auto) Lymph # (Auto) [place] # (Auto) Eos # (Auto) Baso # (Auto) Abs Immat Gran (auto) Absolute Neuts (auto) Absolute Nucleated RBC Nucleated RBC % PT INR APTT Sodium Potassium Chloride Carbon Dioxide Anion Gap BUN Creatinine Estim Creat Clear Calc Estimated GFR Glucose POC Capillary Glucose 125 H 125 H Hemoglobin A1c Calcium Magnesium Total Bilirubin AST ALT Alkaline Phosphatase Ammonia Total Creatine Kinase Troponin I NT-Pro-B Natriuret Pep Total Protein Albumin Lipase Vitamin B12 TSH Urine Color Urine Appearance Urine pH Ur Specific [place] Urine Protein Urine Glucose (UA) Urine Ketones Ur Blood (Man) Urine Nitrate Urine Bilirubin Urine Urobilinogen Leukocyte Esterase Rfl Urine RBC Urine WBC Ur Squamous Epith Cells Urine Bacteria Urine Casts Salicylates Urine Opiates Screen Urine Methadone Screen Acetaminophen Ur Barbiturates Screen Ur Phencyclidine Scrn Ur Amphetamine Screen U Benzodiazepines Scrn Urine Cocaine Screen U Cannabinoids Screen Ethyl Alcohol Influenza A (RT-PCR) Influenza B (RT-PCR) RSV (RT-PCR) SARS-CoV-2 RNA (RT-PCR) Quality VTE Prophylaxis VTE prophylaxis: mechanical ordered
[2024-06-24 14:00] VITALS: BP 144/88; PULSE 88; RESP 14; TEMP 36.4; O2SAT 93
[2024-06-24] MEDS: diazePAM INJ (*CRX) 10 MG/2 ML SYRINGE IM (14:13)
[2024-06-24 16:41] LABS: Glucose Point of Care 137 mg/dl (65-105)
--- NOTE | 2024-06-24 16:51 | PC.NURSE ---
Gave triage info to [facility] transfer center, awaiting neuro bed
[2024-06-24 17:54] VITALS: BP 141/77
--- NOTE | 2024-06-24 18:44 | P.TS_ITS ---
Transfer Discharge Sum: Prov Provider Date of admission: 06/24/24 10:53 Primary care physician: GABE ACKERMANJOHNY Admitting clinician: Kerry Cantu MD Attending physician on admission: Kerry Cantu Consults: 06/24/24 Consult to Physician Routine Comment: Consulting Provider: qa automation engineer/MD group to consult: Neurology Reason for consultation: Acute infarct right parietal lobe, subarachnoid hemorrhage r frontal lobe Has provider been notified: No Consult to Physician Routine Comment: Consulting Provider: Dc Valadez Reason for consultation: encephalopathic Has provider been notified: No Attending physician on discharge: Matt Ayoub Discharging clinician: Adrienne Brdoy Anticipated date of transfer: 06/24/24 Receiving physician/facility: Dr. Rodrigues at [facility] DS: Admitting Diagnosis Discharge Date 06/25/24 Admitting Diagnosis Altered mental status. DS: Discharge Diagnosis Discharge Diagnosis (1) Acute spontaneous idiopathic subarachnoid intracranial hemorrhage: Code(s): I60.9 - Nontraumatic subarachnoid hemorrhage, unspecified Status: Acute (2) Acute CVA (cerebrovascular accident): Code(s): I63.9 - Cerebral infarction, unspecified Status: Acute Transfer Discharge Sum: Med Medications Active and Home Medications: Home Medications acetaminophen 650 mg PO .q4hr PRN pain/fever 06/24/24 [History Confirmed 06/24/24] aspirin 81 mg PO DAILY@0 06/24/24 [History Confirmed 06/24/24] naproxen 220 mg PO .q12hr PRN pain 06/24/24 [History Confirmed 06/24/24] rosuvastatin 5 mg PO DAILY@1700 06/24/24 [History Confirmed 06/24/24] Active Medications Acetaminophen (Acetaminophen 325 Mg Tablet) 650 mg PO Q4H PRN PRN Reason: Mild Pain (1-3) or Fever Dextrose (Dextrose 50% 25 Gm/50 Ml Syringe) 12.5 gm IV PUSH PRN PRN; Protocol PRN Reason: Hypoglycemia Glucagon (Glucagon For Inj 1 Mg Vial) 1 mg IM PRN PRN; Protocol PRN Reason: Hypoglycemia Glucose (Glucose Oral Gel 15 Gm Of Glucse In 37.5 Gm Tube) 15 gm PO PRN PRN; Protocol PRN Reason: Hypoglycemia Hydralazine HCl (Hydralazine Hcl 20 Mg/Ml Vial) 10 mg IV PUSH Q4H PRN PRN Reason: Blood Pressure - High Dextrose (Dextrose 5% 1,000 Ml) 1,000 mls @ 100 mls/hr IVPB PRN PRN; Protocol PRN Reason: Hypoglycemia Nicardipine/Sodium Chloride (Cardene 20 Mg/200 Ml Ns) 20 mg in 200 mls @ 50 mls/hr IV CONT .Q4H ETHAN Ondansetron HCl (Ondansetron Inj 4 Mg/2 Ml Vial) 4 mg IV PUSH Q4H PRN PRN Reason: Nausea Transfer Discharge Sum: Hosp Hospital Course Hospital course: J Luis Castillo is a 88 year old male came to the ER with altered mental status. CTA head and neck negative, chest x-ray negative. Ammonia negative. U tox negative. Salicylates and acetaminophen negative. Patient had MRI of head done that showed: IMPRESSION: 1. 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 2. Acute subarachnoid hemorrhage in a sulcus in right frontal lobe. 3. 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 4. Extensive nonspecific cerebral white matter disease and pontine disease, which likely represents chronic small vessel ischemic disease. -Spoke with Karla Savage and patient has been accepted high priority to Dr. Rodrigues. Karla called back with bed. -Dr. Cuello aware of transfer to ICU for Nicardipine drip and neuro checks q 2 hours while waiting for transfer. . -Spoke with Dr. Kendrick at [facility]. Patient accepted but unknown when bed available. -Spoke with Kellen LANDON at the [facility] [address] [phone]. Fax number [phone] to send reports. They will review and get back with us. -Called [facility] and was speaking with Jean-Pierre when Karla called back with a bed for patient. -Karla called back and they have a bed for patient. Patient to be transferred by [facility]. Anai in ICU updated. Family updated. Time Spent with Patient Time attestation: Total time spent providing and/or coordinating transfer services: 2 hours 10 minutes. Total time spent: Greater than 30 minutes Exam Const: General: comfortable and no acute distress Eyes: Sclera: sclerae normal Pupils: Equal, round and reactive pupils present Resp: Effort & Inspection: normal respiratory effort Auscultation: clear to auscultation bilaterally Cardio: Rate: regular rate Rhythm: regular rhythm GI: GI Palp: Yes Soft to palpation Auscultation: normal bowel sounds Skin: General skin exam: no rashes or lesions noted Neuro: Speech: normal speech Other: Equal mediator and smile Extrem: General: no pedal edema Psych: Affect: normal affect Other: Alert to self. DS: Data Data Completed and Pending Labs on day of discharge: Labs from last 24 hours 06/24/24 06/24/24 06/24/24 16:35 11:45 08:15 WBC RBC Hgb Hct MCV MCH MCHC RDW Plt Count MPV Immature Gran % (Auto) Neut % (Auto) Lymph % (Auto) [place] % (Auto) Eos % (Auto) Baso % (Auto) Lymph # (Auto) [place] # (Auto) Eos # (Auto) Baso # (Auto) Abs Immat Gran (auto) Absolute Neuts (auto) Absolute Nucleated RBC Nucleated RBC % Sodium Potassium Chloride Carbon Dioxide Anion Gap BUN Creatinine Estim Creat Clear Calc Estimated GFR Glucose POC Capillary Glucose 137 H 125 H 125 H Hemoglobin A1c Calcium Magnesium Ammonia Total Creatine Kinase Troponin I NT-Pro-B Natriuret Pep Vitamin B12 TSH Urine Color Urine Appearance Urine pH Ur Specific [place] Urine Protein Urine Glucose (UA) Urine Ketones Ur Blood (Man) Urine Nitrate Urine Bilirubin Urine Urobilinogen Leukocyte Esterase Rfl Urine RBC Urine WBC Ur Squamous Epith Cells Urine Bacteria Urine Casts Salicylates Urine Opiates Screen Urine Methadone Screen Acetaminophen Ur Barbiturates Screen Ur Phencyclidine Scrn Ur Amphetamine Screen U Benzodiazepines Scrn Urine Cocaine Screen U Cannabinoids Screen Ethyl Alcohol Influenza A (RT-PCR) Influenza B (RT-PCR) RSV (RT-PCR) SARS-CoV-2 RNA (RT-PCR) 06/24/24 06/23/24 06/23/24 07:26 22:05 21:48 WBC 10.5 H RBC 4.22 L Hgb 12.5 L Hct 38.2 L MCV 90.5 MCH 29.6 MCHC 32.7 RDW 14.5 Plt Count 261 MPV 9.6 Immature Gran % (Auto) 0.4 Neut % (Auto) 66.4 Lymph % (Auto) 16.4 L [place] % (Auto) 12.8 H Eos % (Auto) 3.2 Baso % (Auto) 0.8 Lymph # (Auto) 1.72 [place] # (Auto) 1.3 H Eos # (Auto) 0.3 Baso # (Auto) 0.1 Abs Immat Gran (auto) 0.04 H Absolute Neuts (auto) 7.0 H Absolute Nucleated RBC 0.000 Nucleated RBC % 0.0 Sodium 137 Potassium 4.2 Chloride 100 Carbon Dioxide 29 Anion Gap 8 BUN 7 L Creatinine 0.61 L Estim Creat Clear Calc 80 Estimated GFR > 60 Glucose 132 H POC Capillary Glucose Hemoglobin A1c Calcium 8.9 Magnesium 2.0 Ammonia < 9 L Total Creatine Kinase 259 H Troponin I NT-Pro-B Natriuret Pep 220 H Vitamin B12 347.0 TSH 4.110 Urine Color Urine Appearance Urine pH Ur Specific [place] Urine Protein Urine Glucose (UA) Urine Ketones Ur Blood (Man) Urine Nitrate Urine Bilirubin Urine Urobilinogen Leukocyte Esterase Rfl Urine RBC Urine WBC Ur Squamous Epith Cells Urine Bacteria Urine Casts Salicylates < 1.0 L Urine Opiates Screen Urine Methadone Screen Acetaminophen < 10 L Ur Barbiturates Screen Ur Phencyclidine Scrn Ur Amphetamine Screen U Benzodiazepines Scrn Urine Cocaine Screen U Cannabinoids Screen Ethyl Alcohol < 10 Influenza A (RT-PCR) Negative Influenza B (RT-PCR) Negative RSV (RT-PCR) Negative SARS-CoV-2 RNA (RT-PCR) Negative 06/23/24 06/23/24 06/23/24 21:38 20:44 16:01 WBC RBC Hgb Hct MCV MCH MCHC RDW Plt Count MPV Immature Gran % (Auto) Neut % (Auto) Lymph % (Auto) [place] % (Auto) Eos % (Auto) Baso % (Auto) Lymph # (Auto) [place] # (Auto) Eos # (Auto) Baso # (Auto) Abs Immat Gran (auto) Absolute Neuts (auto) Absolute Nucleated RBC Nucleated RBC % Sodium Potassium Chloride Carbon Dioxide Anion Gap BUN Creatinine Estim Creat Clear Calc Estimated GFR Glucose POC Capillary Glucose Hemoglobin A1c 7.6 H Calcium Magnesium Ammonia Total Creatine Kinase Troponin I < 0.012 NT-Pro-B Natriuret Pep Vitamin B12 TSH Urine Color Yellow Urine Appearance Clear Urine pH 6.5 Ur Specific [place] 1.012 Urine Protein 1+ H Urine Glucose (UA) 2+ H Urine Ketones Negative Ur Blood (Man) Negative Urine Nitrate Negative Urine Bilirubin Negative Urine Urobilinogen 1.0 Leukocyte Esterase Rfl Negative Urine RBC 0-2 Urine WBC 0-5 Ur Squamous Epith Cells None seen Urine Bacteria None seen Urine Casts 0-2 Salicylates Urine Opiates Screen Negative Urine Methadone Screen Negative Acetaminophen Ur Barbiturates Screen Negative Ur Phencyclidine Scrn Negative Ur Amphetamine Screen Negative U Benzodiazepines Scrn Negative Urine Cocaine Screen Negative U Cannabinoids Screen Negative Ethyl Alcohol Influenza A (RT-PCR) Influenza B (RT-PCR) RSV (RT-PCR) SARS-CoV-2 RNA (RT-PCR)
--- NOTE | 2024-06-24 19:40 | PC.NURSE ---
[facility] here to transport pt to [facility] room [id number] bed 1. Report called to Mitra at [facility]
== END 2024-06-24 19:45 | disposition short-term general hospital (02) | DRG 64 ==
LOC: ANHED 21:27 → ANH3MEDSUR 06-24 01:53
PROVIDERS: Emergency Medicine; Physician Assistant; Admitting Provider General Practice; Emergency Provider Student in an Organized Health Care Education/Training Program; Visit Provider Nurse Practitioner Family
DX: I63.9 Cerebral infarction, unspecified (principal); I60.8 Other nontraumatic subarachnoid hemorrhage; E11.9 Type 2 diabetes mellitus without complications; E78.5 Hyperlipidemia, unspecified; I10 Essential (primary) hypertension; Z66 Do not resuscitate; Z20.822 Contact with and (suspected) exposure to COVID-19; Z85.038 Personal history of other malignant neoplasm of large intestine; Z85.51 Personal history of malignant neoplasm of bladder
CPT/HCPCS: 36415; 70450; 70496; 70498; 70551; 71046; 74177; 80048; 80053; 80143; 80179; 80307; 81001; 82077; 82140; 82550; 82607; 82948; 83036; 83690; 83735; 83880; 84443; 84484; 85025; 85610; 85730; 87637; 93005; 96372; 96374; 96375; 96376; 99285; G0378; J3360; Q9967